=== PATIENT | female | born 1945 | race Caucasian/White ===

== ENCOUNTER → 2017-06-20 13:52 | Outpatient (CLI) | payer MEDICARE, SELFPAY ==
--- NOTE | 2017-06-20 13:55 | CT_ITS ---
STUDY: CT ABDOMEN WITH CONTRAST REASON FOR EXAM: Female, 71 years old. Follow-up: cancer, left adrenal adenoma. RADIATION DOSAGE (If Supplied By Facility): CTDIvol = ( 16.64 ) mGy, DLP = ( 663.18 ) mGycm TECHNIQUE: Transaxial images were obtained post I.V. administration of 100ML ml of Isovue 300 contrast, and with oral contrast. Sagittal and coronal images were reconstructed. Individualized dose optimization techniques were used for this CT. COMPARISON: CT abdomen and pelvis September 17, 2015. FINDINGS: Calcified granulomata seen in the posterior periphery of the right lower lobe, and there are calcified lymph nodes in the right hilum. The heart size is within normal limits. There are atherosclerotic calcifications of the coronary arteries and visualized distal descending thoracic aorta. Dense calcification also seen in the mitral valve annulus. The mildly elongated right lobe of liver measures 18.9 cm in height. There are occasional calcified granulomata in the liver, but no new focal liver mass. The patent portal vein diameter is 11.5 mm. There are surgical clips in the gallbladder fossa consistent with a prior cholecystectomy. The diameter of the common bile duct is 5 mm. There are multiple benign calcified granulomata of the spleen. Normal pancreas. There is a stable moderately circumscribed, 1.4 x 1.7 x 1.35 cm low attenuation left adrenal mass, consistent with an adrenal adenoma. Normal right adrenal gland. Normal right kidney. Normal left kidney. No hydronephrosis. Normal visualized stomach. Normal small intestine. There are a few distal left colonic diverticula consistent with diverticulosis. The appendix is visualized and appears normal. There is stable moderate atherosclerotic calcification of the abdominal aorta and visualized proximal iliac arteries, without a demonstrated aneurysm. There is 25-50% diameter atherosclerotic narrowing of the right renal artery ostium, while greater than 70% atherosclerotic stenosis suggested on the left. Normal inferior vena cava. Normal retroperitoneum. Midline ventral hernia near the umbilicus is only partially included in the [id number], but again appears to contain nondistended small bowel segments. There are stable diffuse degenerative changes of the visualized spine, an 18-19 degrees levoscoliosis centered at T12. Grade 1-2 anterolisthesis of L4 on L5 is mildly worsened. CT/Abdomen WITH IV Contrast IMPRESSION: 1. Stable left adrenal adenoma. 2. No findings suspicious for abdominal metastatic disease. 3. Prior cholecystectomy. 4. Stable ventral hernia containing nondistended small bowel. 5. Atherosclerotic calcifications of the coronary arteries, thoracoabdominal aorta and proximal iliac arteries. Coarse calcification also seen in the mitral valve annulus. 6. 25-50% diameter atherosclerotic narrowing of the right renal artery ostium; >70% atherosclerotic stenosis suggested on the left. 7. Stable findings of old calcified granulomatous disease. 8. Distal left colonic diverticulosis without acute diverticulitis. No sign of bowel obstruction. The visualized appendix is normal. 9. No hydronephrosis. 10. Multilevel degenerative changes of the spine, with levoscoliosis centered at T12. Grade 1-2 anterolisthesis of L4 on L5 is mildly worsened. Electronically Signed: Kevin Meadows MD at 20:01 EDT , Service support ,
[2017-06-20 15:36] LABS: CREATININE FINGERSTICK 0.6 mg/dL (0.55-1.02); EGFR FINGERSTICK > 60.0000 mL/min (>60)
== END ==
PROVIDERS: Family Provider Internal Medicine; PCP Internal Medicine; Visit Provider Internal Medicine
DX: D35.02 Benign neoplasm of left adrenal gland (principal)
CPT/HCPCS: 74160; Q9967

== ENCOUNTER → 2017-10-19 12:43 | Outpatient (CLI) | payer MEDICARE, SELFPAY ==
--- NOTE | 2017-10-19 12:46 | BI_ITS ---
MAMMOGRAPHY - BILATERAL SCREENING REASON FOR EXAM: Female, 71 years old. Routine annual screening examination. PERTINENT HISTORY: Sister with breast cancer. TECHNIQUE: Digital bilateral breast kane (3D mammographic acquisition) in the CC and MLO projections. 2-D mediolateral oblique (MLO) and craniocaudad (CC) views of both breasts were obtained. CAD: Full Field Digital Mammography with Computer Added Detection was performed. COMPARISON: Comparison is made with prior study dated October 04, 2016 and October 01, 2015. FINDINGS: Breast Composition: The breasts are almost entirely fatty. There are no dominant masses or suspicious calcifications. Stable appearance of the scattered secretory type calcifications in the right breast. No other significant abnormalities are identified. There has been no significant change since the prior study. BI/SCREENING MAMM (CAD), BILAT IMPRESSION: Stable bilateral screening mammogram. Yearly follow-up mammogram recommended. (A) ASSESSMENT CATEGORY: BIRADS Category 2: Benign. A letter regarding these results will be sent to the patient by the facility within 30 days. Approximately 10% of breast cancers are not detected by mammography. A normal mammogram should not delay biopsy of a clinically suspicious abnormality. [id number] Electronically Signed: Matt Cortes MD at 14:43 EDT Tel [phone], Service support ,
== END ==
PROVIDERS: Family Provider Internal Medicine; PCP Internal Medicine; Visit Provider Internal Medicine
DX: Z12.31 Encounter for screening mammogram for malignant neoplasm of breast (principal)
CPT/HCPCS: 77063; 77067

== ENCOUNTER → 2018-03-11 07:14 | Outpatient (CLI) | payer MEDICARE, SELFPAY ==
[2018-03-11 10:16] LABS: Absolute Lymphocyte Count 1.65 X10^3/ul (0.83-4.51); Absolute Neutrophil Count 6.5 X10^3/uL (2.0-7.7); Basophil# 0.07 X10^3/uL; Basophil% 0.7 % (0-1); Eosinophil# 0.47 X10^3/uL; Eosinophils% 4.8 % (0-5); Hematocrit 40.6 % (37-47); Hemoglobin 13.4 g/dl (12.0-15.0); Lymphocyte # 1.65 X10^3/ul (4.0); Mean Corpuscular Hgb 28.6 pg (27.0-32.0); Mean Corpuscular Volume 86.8 fL (81-99); Mean Platelet Vol. 9.2 fl (6.2-12.0); Monocyte# 1.06 X10^3/uL; Monocyte% 10.9 % (0-10); Neutrophil # 6.46 X10^3/uL (2.7-7.7); Neutrophil % 66.4 % (47-70); POSITIVE COUNT NO; POSITIVE DIFFERENTIAL NO; POSITIVE MORPHOLOGY NO; Platelet Count 416 K/mm3 (150-450); RBC Distribution Width CV 13.2 % (11.6-14.6); RBC Distribution Width SD 41.1 fl (35.1-43.9); Red Blood Count 4.68 M/mm3 (4.2-5.4); White Blood Count 9.7 K/mm3 (4.4-11.0)
[2018-03-11 10:38] LABS: Vitamin D,25 Hydroxy 11.8 ng/mL (29.95-100.01)
[2018-03-11 10:51] LABS: ALB/GLOB Ratio 0.7 RATIO (0.9-2.4); AST(SGOT) 16 U/L (15-37); Alanine Aminotransfer ALT/SGPT 10 U/L (13-56); Albumin, Serum 3.4 g/dL (3.2-5.0); Alkaline Phosphatase 103 U/L (45-117); Anion Gap 12 (5-15); BUN 11 mg/dL (7-18); BUN/Creat Ratio 15.9 RATIO (10-20); Calcium,Total 8.9 mg/dL (8.5-10.1); Chloride 94 mmol/L (98-107); Creatinine, Serum 0.69 mg/dL (0.55-1.02); EST Glomerular Filtration Rate 89 mL/min (>60); Est Glom Filt Rate - Afr Amer 107 mL/min (>60); Globulin 4.6 g/dL (2.2-4.2); Glucose 46 mg/dL (74-106); Potassium 3.7 mmol/L (3.5-5.1); Sodium Level 134 mmol/L (136-145); Thyroid Stim Hormone (TSH) 2.93 uIU/mL (0.358-3.74)
[2018-03-13 16:09] LABS: CHOLESTEROL TOTAL 106 mg/dL (100-199); HDL-C 50 mg/dL (>39); HDL-P TOTAL 33.9 umol/L (>=30.5); SMALL LDL-P 151 nmol/L (<=527); TRIGLYCERIDES 95 mg/dL (0-149)
[2018-03-14 07:36] LABS: LDL SIZE 20.4 nm (>20.5); LDL-C 37 mg/dL (0-99); LDL-P 342 nmol/L (<1000); LP-IR SCORE ** 35 (<=45)
== END ==
PROVIDERS: Family Provider Internal Medicine; PCP Internal Medicine; Referring Provider Internal Medicine; Visit Provider Internal Medicine
DX: E55.9 Vitamin D deficiency, unspecified (principal); E78.2 Mixed hyperlipidemia; I10 Essential (primary) hypertension; E11.9 Type 2 diabetes mellitus without complications
CPT/HCPCS: 36415; 80053; 80061; 82306; 83704; 84443; 85025

== ENCOUNTER → 2018-04-17 08:00 | Outpatient (CLI) | payer MEDICARE, SELFPAY ==
[2018-04-17 10:30] LABS: Anion Gap 10 (5-15); BUN 14 mg/dL (7-18); BUN/Creat Ratio 19.4 RATIO (10-20); Calcium,Total 8.6 mg/dL (8.5-10.1); Chloride 92 mmol/L (98-107); Creatinine, Serum 0.72 mg/dL (0.55-1.02); EST Glomerular Filtration Rate 84 mL/min (>60); Est Glom Filt Rate - Afr Amer 102 mL/min (>60); Glucose 132 mg/dL (74-106); Potassium 3.5 mmol/L (3.5-5.1); Sodium Level 128 mmol/L (136-145)
--- OUTSIDE RECORDS SUMMARY | 2018-06-21 22:51 | XMS RPT_ITS | Continuity of Care Document ---
:1945 Author Organization [facility] Address [address] [place] [address] Phone Care Team Providers Name Role Phone Kathy Noguera DO Unavailable Carlos Enrique Bingham Unavailable Dr. Florin Brannon Unavailable Dr. Kirby العلي Unavailable LUIS ALBERTO Macedo Unavailable Unavailable CORRINE Robin Unavailable Unavailable Unavailable Unavailable Problems Name Dates Details Adrenal adenoma, left (D35.02, 227.0) Comments: 09/15 scan size of adrenal nodule 1.8cm Status: Active Annual Medicare Phyiscal WITHOUT abnormal findings (Renamed from Encounter for general adult medical examination without abnormal findings) (Z00.00, V70.9) Status: Active Atherosclerosis (I70.90, 440.9) Comments: on low dose asa, repeat carotid in a year Status: Active Bilateral carotid artery stenosis (I65.23, 433.10) Comments: dopplers 2015 Status: Active BMI 34.0-34.9,adult (Z68.34, V85.34) Status: Active BMI 35.0-35.9,adult (Z68.35, V85.35) Status: Active BMI 36.0-36.9,adult (Z68.36, V85.36) Status: Active Colon cancer (C18.9, 153.9) Comments: hx of -s/p hemicolectomyColon cancer 03/2003, colosctomy bag till 2003.No chemo or radiation.Colonoscopy 05/15 Dr Simon, repeat 5 years, 05/20 Status: Active Deliveries (Parity) Comments: 3. Status: Active Depression (F32.9, 311) Comments: mild controlled Status: Active Dermatitis (L30.9, 692.9) Status: Active Diabetes mellitus type II, controlled (E11.9, 250.00) Status: Active Diabetes type II, uncontrolled, ophthalmic comp (250.52) Comments: FBS: 96-106 Status: Active Diabetic neuropathy (E11.40, 357.2) Status: Active Diabetic retinopathy of right eye (E11.319, 250.50) Comments: [facility] surgery 2014, aneurysm in rt eye rupture. next OV 08/2018 seen every 6 months or atleast yearly consistently eye exam Dr Dent in [place] (Opthalmology) next OV - 2018 sees every 6 months last seen Status: Active Encounter for annual general medical examination with abnormal findings in adult (Z00.01, V70.0) Status: Active Encounter for screening for malignant neoplasm of colon (Renamed from Special screening for malignant neoplasms, colon) (Z12.11, V76.51) Comments: last scope 2018-- 5-7yrs if that per dr brannon Status: Active Encounter for screening mammogram for breast cancer (Renamed from Encounter for screening mammogram for malignant neoplasm of breast) (Z12.31, V76.12) Status: Active Essential tremor (G25.0, 333.1) Status: Active Fatty liver (K76.0, 571.8) Status: Active Hypertension, benign (I10, 401.1) Comments: BP at home: 130/80 Status: Active Hypokalemia (Renamed from Decreased potassium in the blood) (E87.6, 276.8) Status: Active Hyponatremia with normal extracellular fluid volume (E87.1, 276.1) Comments: she monitoring her fluids bettter Status: Active Low back pain potentially associated with radiculopathy (M54.5, 724.2) Status: Active Memory impairment (R41.3, 780.93) Status: Active Mixed hyperlipidemia (E78.2, 272.2) Status: Active Need for prophylactic vaccination and inoculation against influenza (Renamed from Need for immunization against influenza) (Z23, V04.81) Status: Active Neurodermatitis (L28.0, 698.3) Status: Active Noncompliance with medications (Z91.14, V15.81) Status: Active Non-smoker (Z78.9, V49.89) Status: Active Nutritional counseling (Z71.3, V65.3) Status: Active Obesity (BMI 30-39.9) (E66.9, 278.00) Status: Active Other abnormal finding of urine (R82.99, 791.9) Status: Active Parkinson disease, symptomatic (G20, 332.0) Status: Active Personal history of stroke with residual effects (I69.30, 438.9) Comments: TIA in 90s, couldnt talk for 1 dayNo residual numbness/weakness Status: Active Postmenopausal (Renamed from Postmenopausal status) (Z78.0, V49.81) Comments: dexa 2017 Status: Active Pregnancies () Comments: 3. 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 constipation Status: Active Vitreous hemorrhage (H43.10, 379.23) Status: Active Medications Name Dates Details AmLODIPine Besylate 5 MG Oral Tablet 1 (one) Tablet bid for 90 days Quantity: 180 {Tablet} Refills: 3 Ordered:15-Mar-2018 Jeb Noguera DO, DO, Kathleen Start : 15-Mar-2018 Active ASPIRIN LOW DOSE, 81MG (Oral Tablet) 1 tab qd (81 MG) Active Crestor 5 MG Oral Tablet 1 Tablet qd for 30 days Quantity: 30 {Tablet} Refills: 3 Ordered:15-Mar-2018 Jeb Noguera DO, DO, Kathleen Start : 15-Mar-2018 Active Comments:substitute generic Januvia 50 MG Oral Tablet 1 (one) Tablet Tablet qd for 0 days Quantity: 30 {Tablet} Refills: 2 Ordered:04-Apr-2017 Hellen Rubina SAHU Start : 04-Apr-2017 Active Lantus SoloStar 100 UNIT/ML Subcutaneous Solution Pen-injector 34 Solution hs for 90 days Quantity: 5 {Pre-filled_Pen_Syringe} Refills: 3 Ordered:15-Mar-2018 Jeb Noguera DO, DO, Kathleen Start : 15-Mar-2018 Active Comments:PENS, PENS Lisinopril 20 MG Oral Tablet 1 (one) Tablet bid for 90 days Quantity: 90 {Tablet} Refills: 3 Ordered:15-Mar-2018 Jeb Noguera DO, DO, Kathleen Start : 15-Mar-2018 Active MetFORMIN HCl ER 500 MG Oral Tablet Extended Release 24 Hour 1 tab Tablet ER 24HR bid for 90 days Quantity: 180 {Tablet} Refills: 3 Ordered:23-Nov-2017 Jeb Noguera DO, DO, Kathleen Start : 23-Nov-2017 Active Metoprolol Succinate ER 25 MG Oral Tablet Extended Release 24 Hour 1 (one) Tablet qd for 0 days Quantity: 90 {Tablet} Refills: 3 Ordered:15-Mar-2018 Jeb Noguera DO, DO, Kathleen Start : 15-Mar-2018 Active PARoxetine HCl 30 MG Oral Tablet 1 (one) Tablet q evening for 90 days Quantity: 90 {Tablet} Refills: 3 Ordered:23-Nov-2017 Jeb Noguera DO, DO, Kathleen Start : 23-Nov-2017 Active Dispense as Written Sinemet 25-100 MG Oral Tablet 2 tabs Tablet tid for 90 days Quantity: 360 {Tablet} Refills: 1 Ordered:15-Mar-2018 Jeb Noguera DO, DO, Kathleen Start : 15-Mar-2018 Active VITAMIN C, 500MG (Oral Tablet) 1 tab qd (500 MG) Active Amoxicillin 875 MG Oral Tablet 1 (one) Tablet Tablet bid for 0 days Quantity: 20 {Tablet} Refills: 0 Ordered:28-Aug-2017 Rubina Macedo LPN Start : 04-Apr-2017 End : 28-Aug-2017 Inactive Cefdinir 300 MG Oral Capsule 1 (one) Capsule bid for 5 days Quantity: 10 {Capsule} Refills: 0 Ordered:31-Aug-2017 Jeb Noguera DO, DO, Kathleen Start : 31-Aug-2017 End : 05-Sep-2017 Inactive GLYBURIDE, 5MG (Oral Tablet) 2 tabs Tablet bid for 90 days Quantity: 360 {Tablet} Refills: 0 Ordered:22-Sep-2015 Dana Roldan Start : 08-Sep-2015 End : 07-Dec-2015 Inactive LORazepam 0.5 MG Oral Tablet 1 (one) Tablet Tablet bid prn for 0 days Quantity: 60 {Tablet} Refills: 0 Ordered:07-Dec-2015 Mere Sommers LPN Start : 12-Aug-2014 End : 07-Dec-2015 Inactive AMLODIPINE BESYLATE, 10MG (Oral Tablet) 1 Tablet qd for 0 days Quantity: 90 {Tablet} Refills: 3 Ordered:17-Dec-2013 Emmanuelle Quiñonez DO Start : 17-Dec-2013 End : 17-Dec-2013 Discontinued Atenolol 25 MG Oral Tablet 1 (one) Tablet bid for 90 days Quantity: 180 {Tablet} Refills: 3 Ordered:11-Dec-2016 Jeb Noguera DO, DO, Kathleen Start : 11-Dec-2016 End : 11-Dec-2016 Discontinued Comments:?? national shortage ONGLYZA, 5MG (Oral Tablet) 1 Tablet qd for 0 days Quantity: 30 {Tablet} Refills: 3 Ordered:18-Mar-2012 Emmanuelle Quiñonez DO Start : 18-Mar-2012 End : 18-Mar-2012 Discontinued PRAVASTATIN SODIUM, 40MG (Oral Tablet) 1 tab Tablet q hs for 0 days Quantity: 90 {Tablet} Refills: 3 Ordered:17-Dec-2013 Emmanuelle Quiñonez DO Start : 17-Dec-2013 End : 17-Dec-2013 Discontinued PREDNISONE, 10MG (Oral Tablet) 3 (three) Tablet pills for 3 days 2 pills for 3 days 1 for 3 days for 0 days Quantity: 18 {Tablet} Refills: 0 Ordered:24-Feb-2015 Kirsten Cardona Start : 18-Nov-2014 End : 24-Feb-2015 Discontinued Comments:[facility] [place] TRADJENTA, 5MG (Oral Tablet) 1 (one) Tablet qd for 0 days Quantity: 35 {Tablet} Refills: 0 Ordered:08-May-2012 Emmanuelle Quiñonez DO Start : 08-May-2012 End : 08-May-2012 Discontinued ZITHROMAX Z-GUEVARA, 250MG (Oral Tablet) 2 (two) Tablet Tablet today then 1 qd for 4 days for 0 days Quantity: 1 {guevara} Refills: 0 Ordered:24-Feb-2015 Kirsten Cardona Start : 04-Mar-2013 End : 24-Feb-2015 Discontinued Allergies and Adverse Reactions Name Dates Details Codeine/Codeine Derivatives (Allergy) Reaction: Hives Status: Active Past Medical History Name Dates Details Abdominal pain, acute, left upper quadrant (R10.12, 789.02) Status: Resolved as of 10-Jun-2012 Abdominal pain, diffuse (R10.84, 789.00) Comments: resolved from last visit Status: Inactive as of 14-Mar-2016 Abnormal urine (R82.90, 791.9) Comments: will treat as uti until see cx Status: Inactive as of 09-Jul-2017 Abnormal urine (R82.90, 791.9) Status: Resolved as of 04-Dec-2012 Back pain (M54.9, 724.5) Status: Inactive as of 09-Jul-2017 BMI 37.0-37.9, adult (Z68.37, V85.37) Status: Inactive as of 11-Dec-2016 Cellulitis, face (L03.211, 682.0) Status: Inactive as of 12-Oct-2017 Cystitis, acute (N30.00, 595.0) Status: Resolved as of 10-Jun-2012 Diabetic nephropathy (E11.21, 250.40) Status: Inactive as of 09-Jul-2017 Diabetic proliferative retinopathy (362.02) Status: Inactive as of 14-Mar-2016 Knee Pain (M25.569, 719.46) Status: Inactive as of 12-Oct-2017 Limb pain (M79.609, 729.5) Status: Resolved as of 04-Dec-2012 Need for prophylactic vaccination and inoculation against influenza (Z23, V04.81) Status: Inactive as of 17-Dec-2013 screening Status: Inactive as of 04-Dec-2012 screening Status: Inactive as of 17-Dec-2013 Skin lesion of face (L98.9, 709.9) Comments: R cheek Status: Inactive as of 12-Oct-2017 Syncope (Renamed from Episode of syncope) (R55, 780.2) Status: Inactive as of 14-Mar-2016 Upper Respiratory Infection (J06.9, 465.9) Status: Inactive as of 17-Dec-2013 Vaccine for smnqpqkxnx-pwovnhp-nekyaswqk with poliomyelitis (Z23, V06.3) Status: Inactive as of 04-Dec-2012 Procedures Procedure Dates Details Cataract Removal, Insert Prosthetic Lens Completed Comments: both eyes- 2011 Colon Cancer Completed Comments: 1 foot of colon removed-2002 colonscopy- 12/11- DR Mendoza Completed Diabetic Retinopathy Completed Comments: 2011 Gallbladder Surgery - Laparoscopic Completed Comments: 1994 Date Value Details 19-Oct-2017 SCREENING MAMM (CAD), BILAT Result: Comments: See Note; NOTES: [facility] Imaging Services [address] [place] [address] SCREENING MAMM (CAD), BILAT MR#: [id number] Acct: [id number] Name: EUGENE OWENS Rep #: [id number] : 1945 F 71 From: Matt Cortes MD PCP: Kathy Noguera DO Status: REG CLI Study: SCREENING MAMM (CAD), BILAT Date of Exam: 10/19/17 Exam# [id number] Ordering Dr: Kathy Noguera DO MAMMOGRAPHY - BILATERAL SCREENING REASON FOR EXAM: Female, 71 years old. Routine annual screening examination. PERTINENT HISTORY: Sister with breast cancer. TECHNIQUE: Digital bilateral breast derrell o (3D mammographic acquisition) in the CC and MLO projections. 2-D mediolateral oblique (MLO) and craniocaudad (CC) views of both breasts were obtained. CAD: Full Field Digital Mammography with Computer Added Detection was performed. COMPARISON: Comparison is made with prior study dated October 04, 2016 and October 01, 2015. FINDINGS: Breast Composition: The breasts are a lmost entirely fatty. There are no dominant masses or suspicious calcifications. Stable appearance of the scattered secretory type calcifications in the right breast. No other significant abnormalitie s are identified. There has been no significant change since the prior study. BI/SCREENING MAMM (CAD), BILAT IMPRESSION: Stable bilateral screeni ng mammogram. Yearly follow-up mammogram recommended. (A) ASSESSMENT CATEGORY: BIRADS Category 2: Benign. [facility] the facility within 30 days. Approximately 10% of breast cancers are not detected by mammography. A normal mammogram should not delay biopsy of a clinically suspicious abnormality. [id number] Elect ronically Signed: Matt Cortes MD at 14:43 EDT Tel [phone], Service support , CC: Kathy Noguera DO General Office Clerk: Signed 20-Jun-2017 Abdomen WITH IV Contrast Result: Comments: See Note; NOTES: [facility] Imaging Services [address] [place] [id number] Abdomen WITH IV Contrast MR#: [id number] Acct: [id number] Name: EUGENE OWENS Rep #: [id number] : 1945 F 71 From: Levar Meadows MD PCP: Kathy Noguera DO Status: REG CLI Study: Abdomen WITH IV Contrast Date of Exam: 06/20/17 Exam# [id number] Ordering Dr: Kathy Noguera DO STUDY: C T ABDOMEN WITH CONTRAST REASON FOR EXAM: Female, 71 years old. Follow-up: cancer, left adrenal adenoma. RADIATION DOSAGE (If Supplied By Facility): CTDIvol = ( 16.64 ) mGy, DLP = ( 663.18 ) mGycm NICOLE HNIQUE: Transaxial images were obtained post I.V. administration of 100ML ml of Isovue 300 contrast, and with oral contrast. Sagittal and coronal images were reconstructed. Individualized dose optimiza tion techniques were used for this CT. COMPARISON: CT abdomen and pelvis September 17, 2015. FINDINGS: Calcified granulomata seen in the posterior periphery of the right lower lobe, and there are calcified lymph nodes in the right hilum. The heart size is within normal limits. There are atherosclerotic calcifications of the coronary arteries and visualized distal desce nding thoracic aorta. Dense calcification also seen in the mitral valve annulus. The mildly elongated right lobe of liver measures 18.9 cm in height. There are occasional calcified granulomata in the l iver, but no new focal liver mass. The patent portal vein diameter is 11.5 mm. There are surgical clips in the gallbladder fossa consistent with a prior cholecystectomy. The diameter of the common bile duct is 5 mm. There are multiple benign calcified granulomata of the spleen. Normal pancreas. There is a stable moderately circumscribed, 1.4 x 1.7 x 1.35 cm low attenuation left adrenal mass, consiste nt with an adrenal adenoma. Normal right adrenal gland. Normal right kidney. Normal left kidney. No hydronephrosis. Normal visualized stomach. Normal small intestine. There are a few distal left colon ic diverticula consistent with diverticulosis. The appendix is visualized and appears normal. There is stable moderate atherosclerotic calcification of the abdominal aorta and visualized proximal iliac arteries, without a demonstrated aneurysm. There is 25-50% diameter atherosclerotic narrowing of the right renal artery ostium, while greater than 70% atherosclerotic stenosis suggested on the left. No rmal inferior vena cava. Normal retroperitoneum. Midline ventral hernia near the umbilicus is only partially included in the mmfws-bg-vqsx, but again appears to contain nondistended small bowel segment s. There are stable diffuse degenerative changes of the visualized spine, an 18- 19 degrees levoscoliosis centered at T12. Grade 1-2 anterolisthesis of L4 on L5 is mildly worsened. CT/Abdomen WITH IV Contrast IMPRESSION: 1. Stable left adrenal adenoma. 2. No findings suspicious for abdominal metastatic disease. 3. Prior cholecystectomy. 4. Stable ventral hernia containing nondistended small bowel. 5. Atherosclerotic calcifications of the coronary arteries, thoracoabdominal aorta and proximal iliac arteries. Coarse calcification also seen in the mitral valve annulus. 6. 25-50% diameter atherosclerotic narrowing of the right renal artery ostium; >70% atherosclerotic stenosis suggested on the left. 7. Stable findings of old calcified gra nulomatous disease. 8. Distal left colonic diverticulosis without acute diverticulitis. No sign of bowel obstruction. The visualized appendix is normal. 9. No hydronephrosis. 10. Multilevel degenerative changes of the spine, with levoscoliosis centered at T12. Grade 1-2 anterolisthesis of L4 on L5 is mildly worsened. Electronically Signed: Kevin Meadows MD at 20:01 EDT Tel , Service support , CC: Kathy Noguera DO General Office Clerk: Signed 04-Oct-2016 SCREENING MAMM (CAD), BILAT Result: Comments: See Note; NOTES: [facility] Imaging Services [address] [place] [id number] [address] 4d SCREENING MAMM (CAD), BILAT MR#: [id number] Acct: [id number] Name: EUGENE OWENS Rep #: [id number] : 1945 F 70 From: Levar Cavanaugh MD PCP: Kathy Noguera DO Status: [facility] CL Study: SCREENING MAMM (CAD), BILAT Date of Exam: 10/04/16 Exam# [id number] Ordering Dr: Americo Noguera DO MAMMOGRAPHY - BILATERAL SCREENING REASON FOR EXAM: Female, 70 years old. Routine annual screening examination. PERTINENT HISTORY: Non-contributory. TECHNIQUE: Digital examination. Mediolateral oblique (MLO) and craniocaudad (CC) views of both breasts were obtained, along with 3D tomosynthesis. CAD: CAD was performed on this study. COMPARISON: 10/01/2015 FI NDINGS: Breast Density: Scattered fibroglandular densities. There are no dominant masses or suspicious calcifications. Stable scattered secretory type calcifications in the right breast. Stable scatter ed punctate calcifications in the left breast. No other significant abnormalities are identified. There has been no significant change since the prior study. HPBI/SCREENING MAMM (CAD), BILAT IMPRESSION: Stable bilateral screening mammogram. Yearly follow-up mammogram recommended. (A) ASSESSMENT CATEGORY: BI RADS Category 2: Benign. A letter regarding these results will be sent to the patient by the facility within 30 days. BR2 Approximately 10% of breast cancers are not detected by mammography. A normal mammogram should not delay biopsy of a clinically suspicious abnormality. [id number] Electronically Signed: Kevin Cavanaugh MD at 15:21 EDT , Service support , Fa x [phone] CC: Kathy Noguera DO General Office Clerk: Signed 13-Jul-2016 DXA BONE DENS W/VERT FX ASMT Result: Comments: See Note; NOTES: [facility] Imaging Services [address] [place] [address] Verdana 4d DXA BONE DENS W/VERT FX ASMT MR#: [id number] Acct: [id number] Name: EUGENE OWENS Rep #: [id number] : 1945 F 70 From: Matt Cortes MD PCP: Kathy Noguera DO Status: REG CLI Study: DXA BONE DENS W/VERT FX ASMT Date of Exam: 07/13/16 Exam# [id number] Ordering Dr: Kathy Noguera DO STUDY: DUAL ENERGY X-RAY ABSORPTIOMETRY / DXA REASON FOR EXAM: Female, 70 years old. The patient is postmenopausal. Loss of height. TECHNIQUE: Bone Mineral Density (BMD) measurements o f lumbar spine and bilateral hips were obtained. COMPARISON: None. FINDINGS: Lumbar Spine (L1-L4): g/cm2 (1.256) / T-score (0.5) / Z-score (2.2) Findings are sugge stive of normal bone density with a low fracture risk. Left Femur Total: g/cm2 (1.001) / T-score (-0.1) / Z-score (1.5) Left Femoral Neck: g/cm2 (0.916) / T- score (-0.9) / Z-score (0.9) Right Femur Tot al: g/cm2 (0.946) / T-score (-0.5) / Z-score (1.0) Right Femoral Neck: g/cm2 (0.896) / T-score (-1.0) / Z-score (0.7) HPBD/DXA BONE DENS W/VERT F X ASMT IMPRESSION: The patient is considered normal as outlined below according to World Kareem Organization (WHO) criteria with a low fracture risk. Reference Infor mation: The T-score is the number of standard deviations above or below the standard which is normal for young adults at their peak bone mineral density. The World Health Organization (WHO) interprets t he T-scores as follows: Above -1 Normal bone density Between -1 and -2.5 Osteopenia Equal to / or below -2.5 Osteoporosis As a practical clinical guideline, osteopenia may be graded as follows: Mild - 1 through -1.5 Moderate -1.6 through -2.0 Severe -2.1 through -2.4 The Z-score is the number of standard deviations above or below age-matched controls. A Z- score of less than -1.5 would be considered abnormal. References: 1. NIH Osteoporosis and Related Bone Diseases http://www.osteo.org 2. International Society for Clinical Densitometry http://www.iscd.org 3. National Osteoporosis Foundation http: //www.nof.org Electronically Signed: Matt Cortes MD at 13:30 EDT Tel [phone], Service support , CC: Kathy Noguera DO General Office Clerk: Signed 01-Oct-2015 Bilat Scrn Digital AND CAD Result: Comments: See Note; NOTES: [facility] Imaging Services [address] [place] [address] Verdana 4d Bilat Scrn Digital AND CAD MR#: [id number] Acct: [id number] Name: EUGENE OWENS Rep #: [id number] : 1945 F 69 From: Narciso Eisenberg MD PCP: Emmanuelle Quiñonez DO Status: REG CLI Study: Bilat Scrn Digital AND CAD Date of Exam: 10/01/15 Exam# [id number] Ordering Dr: Emmanuelle Roper DO MAMMOGRAPHY - BILATERAL SCREENING REASON FOR EXAM: Female, 69 years old. Routine annual screening examination. PERTINENT HISTORY: NO FAM HX - NO PREV SURG'S - BILAT MOLES MARKED T ECHNIQUE: TECHNIQUE: Digital bilateral breast tomosynthesis (3-D mammographic acquisition) in the CC and MLO projections. Synthesized 2-D images (C-View reconstruction from tomosynthesis acquisition) providing bilateral breast CC and MLO views. Mediolateral oblique (MLO) and craniocaudad (CC) views of both breasts were obtained. CAD: Full Field Digital Mammography with Computer Added Detection wa s performed. COMPARISON: None. FINDINGS: Breast Density: B - Scattered fibroglandular densities. There are no dominant masses or suspicious calcifications. No other significant abnormalities are identified. IMPRESSION: Stable bilateral screening mammogram. Yearly follow-up mammogram recommended. (A) ASSESSMENT CATEGORY: BIRADS Category 2: Benign. A letter regarding these results will be sent to the patient by the facility within 30 days. Approximately 10% of breast cance rs are not detected by mammography. A normal mammogram should not delay biopsy of a clinically suspicious abnormality. [id number] Electronically Signed: Narciso Eisenberg MD at 17:54 EDT Te l , Service support [phone], CC: Emmanuelle Quiñonez DO General Office Clerk: Signed 19-Sep-2015 Carotid Duplex Ultrasound Result: Comments: See Note; NOTES: [facility] Cardiovascular Services [address] [place] [address] Carotid Duplex Ultrasound 09/17/15 0801 MR#: [id number] Acct: [id number] Name: EUGENE OWENS Rep #: [id number] : 1945 69 From: Adria Kim MD Attending Dr: Emmanuelle Quiñonez DO Status: REG CLI Ordering Dr: Emmanuelle Quiñonez DO Date: 09/17/15 Location: CT Sex: F C Admitt ed: Reason For Study: Carotid Stenosis Rt. Velocities/BP Lt. Velocities/BP Prox CCA 73/12 cm/sec. Prox CCA 90/14 cm/sec. Mid CCA 56/10 cm/sec. Mid CCA 84/12 cm/sec. Dist CCA 60/11 cm/sec. Di st CCA 66/9 cm/sec. Prox ICA 67/14 cm/sec. Prox ICA 60/14 cm/sec. Mid ICA 64/17 cm/sec. Mid ICA 72/16 cm/sec. Dist ICA 84/21 cm/sec. Dist ICA 92/22 cm/sec. Rt. ICA/CCA = 1.5. Lt. ICA/CCA = 1.09. Pr ox ECA 98/9 cm/sec. Prox ECA 80/8 cm/sec. Rt. Vert. 51/11 cm/sec. Lt. Vert. 44/9 cm/sec. Right Extracranial There is no significant atherosclerotic plaque noted in the right common carotid artery. T here is no significant atherosclerotic plaque noted in the right internal carotid artery. There is heterogeneous, irregular atherosclerotic plaque noted in the right external carotid artery. Antegrad e flow is noted in the right vertebral artery. There is heterogeneous, irregular atherosclerotic plaque noted in the right bulb. Left Extracranial There is no significant atherosclerotic plaque note d in the left common carotid artery. There is no significant atherosclerotic plaque noted in the left internal carotid artery. There is no significant atherosclerotic plaque noted in the left externa l carotid artery. Antegrade flow is noted in the left vertebral artery. There is heterogeneous, smooth atherosclerotic plaque noted in the left bulb. Procedure Carotid Duplex 12366. Exam performe d in department. Interpretation Summary Mild (<50%) stenosis right extracranial internal carotid. Mild (<50%) stenosis left extracranial internal carotid. Flow within the vertebral arteries is antegrade bilaterally. Ordering Physician: Emmanuelle Quiñonez Referring Physician: Emmanuelle Quiñonez Performed By: Lina Dumont, CARISSA, RVT 09/19/152156 Date Adria Kim MD CC: Emmanuelle Quiñonez DO Date Dictated: 09/17/15 0801 Date Transcribed: 09/19/152156 General Office Clerk: Signed 17-Sep-2015 Abdomen/Pelvis WITH Contrast Result: Comments: See Note; NOTES: [facility] Imaging Services [address] [place] [address] Verdana 4d Abdomen/Pelvis WITH Contrast MR#: [id number] Acct: [id number] Name : ROMANEUGENE F Rep #: [id number] : 1945 F 69 From: Matt Cortes MD PCP: Emmanuelle Quiñonez DO Status: REG CLI Study: Abdomen/Pelvis WITH Contrast Date of Exam: 09/17/15 Exam# [id number] Genevieve vasquez Dr: Emmanuelle Quiñonez DO STUDY: CT ABDOMEN AND PELVIS WITH CONTRAST REASON FOR EXAM: Female, 69 years old. Epigastric pain. History of colon cancer. RADIATION DOSAGE (If Supplied By Facility): CTDI vol = ( 15.85 ) mGy, DLP = ( 1016.23 ) mGycm TECHNIQUE: Transaxial images were obtained from the dome of the diaphragm to the symphysis pubis with oral contrast. 100ML ml of Isovue 300 contrast was administered. Sagittal and coronal images were reconstructed. Individualized dose optimization techniques were used for this CT. COMPARISON: Comparison is made with prior study dated May 08. FINDINGS: Minimal increased linear markings at the lung bases suggestive of mild linear scarring. This is unchanged. Calcified right infrahilar lymph nodes. Coronary artery calcification. Normal liver. There are surgical clips in the gallbladder fossa consistent with a prior cholecystectomy. There are multiple benign calcified granulomata of the spleen . Normal pancreas. There is a small, circumscribed, smooth, low attenuation left adrenal mass, consistent with an adrenal adenoma. It measures 1.8 cm. This is unchanged. Normal right adrenal gland. Normal right kidney. Normal left kidney. Normal visualized stomach. Normal small intestine. Normal colon. The appendix is visualized and appears normal. There is diffuse atherosclerotic calcifica tion of the abdominal aorta, without a demonstrated aneurysm. Normal inferior vena cava. Normal retroperitoneum. Small benign appearing pelvic lymph nodes. Normal urinary bladder. With evidence of a midline umbilical hernia containing fat and nondilated small bowel loop. The neck of the hernia measures 6.6 cm. There are diffuse degenerative changes of the visualized lumbar spine. Minimal ante rior listhesis of L4 on L5. Minimal we will scoliosis. IMPRESSION: Fatty infiltration of the liver. 1.8 cm well-defined low attenuation nodule in the left adrena l gland most likely representing an adrenal adenoma. Umbilical hernia containing fat and a nondilated small bowel loop. Electronically Signed: Matt Cortes MD at 8:43 EDT Tel [phone], Service support [phone], CC: Emmanuelle Quiñonez DO General Office Clerk: Signed 20-Aug-2015 Brain W/WO Contrast Result: Comments: See Note; NOTES: [facility] Imaging Services [address] [place] [address] Verdana 4d Brain W/WO Contrast MR#: [id number] Acct: [id number] Name: SA LAURO OWENS F Rep #: [id number] : 1945 F 69 From: Narciso Eisenberg MD PCP: Emmanuelle Quiñonez DO Status: REG CLI Study: Brain W/WO Contrast Date of Exam: 08/20/15 Exam# [id number] Ordering Dr: Ashu Bhatti MD STUDY: MRI BRAIN WITH AND WITHOUT CONTRAST REASON FOR EXAM: Female, 69 years old. Follow up to prior MRI, H/A's Meds with the and at the the lower pole of the reason for the lesions in the ri ght and the and in the liver and a with measures one point the balloon of the middle of the. There is a reason for visit is and 626 the neural a catheter in the the liver and C1 are seen in the the kn ee and in with only a homogeneous and is minimally is seen with chest reason for is is present ultrasound of the 5.5x5.8x5.2 cm 8.5 there is a this is no flow images were obtained 5.3x5 is 5x55 this is a. Soft tissue and TECHNIQUE: Standardized multiplanar fat and water weighted pulse sequences were obtained. 10 ml of Gadavist contrast material was administered intravenously for the contrast po rtion of the examination. COMPARISON: None. FINDINGS: Dysgenetic corpus callosum, with only partially formed callosal body, with corresponding findings, includ ing parallel and widely space lateral ventricles, colpocephaly and mild superior extension of the third ventricle. Normal extra-axial CSF spaces for the patient's age. No localized extra-axial fluid collection. There are multiple punctate and patchy confluent foci of FLAIR and T2 signal hyperintensity in the bihemispheric white matter, compatible with moderate chronic microvascular ischemic dis ease in an individual of this age. Tiny dilated perivascular spaces in the bilateral basal ganglia with suspected small remote right thalamic infarct. There is no evidence for recent intracranial isc hemia or other cause of cytotoxic edema on diffusion weighted imaging (DWI). Normal flow voids within the major intracranial circulation suggesting patency by spin echo criteria. Normal venous enhan cement. Focal region of mild contrast enhancement in a somewhat curvilinear configuration involving the right frontal lobe, with evidence of mild adjacent encephalomalacia and gliosis, suggesting pro bable subacute insult, potentially post-traumatic versus vascular in etiology. Alternatively, this could be associated with a small developmental venous anomaly, given somewhat tubular configuration . The sella appears mildly expanded and partially empty, with otherwise normal appearance of the visualized pituitary infundibulum, optic chiasm and hypothalamic region, within the constraints of a r outine brain study. Normal tectal plate and pineal gland. Normal midbrain, allen and medulla. Normal cerebellum. Normal basal cisterns. Small amount of fluid signal in the right mastoid tip, most co mpatible with chronic mastoiditis. Normal visualized bilateral internal auditory canal structures, given routine brain imaging. Bilateral ocular lens implants, with no additional demonstrated orbital abnormality, within the constraints of a routine brain study. Normal appearance of the calvarium and visualized osseous skull base structures. Mild degenerative changes involving the visualized uppe r cervical spine. 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 Chronic microvascular ischemic changes involving the bihemispheric whi te matter, with no visualized acute infarct. 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 Electronically Signed: Narciso Eisenberg MD at 15:23 EDT Tel , Service support [phone], CC: Emmanuelle Bhatti MD General Office Clerk: Signed 20-Aug-2015 Brain W/WO Contrast Result: Comments: See Note; NOTES: [facility] Imaging Services [address] [place] [address] Vanessa 4d Brain W/WO Contrast MR#: [id number] Acct: [id number] Name: SA RA Nohemi OWENS Rep #: [id number] : 1945 F 69 From: Narciso Eisenberg MD PCP: Emmanuelle Quiñonez DO Status: REG CLI Study: Brain W/WO Contrast Date of Exam: 08/20/15 Exam# [id number] Ordering Dr: Ashu Bhatti MD ADDENDUM by Narciso Eisenberg MD on 09/05/15 at 0120 ADDENDUM REASON FOR EXAM: Female, 69 y ears old. Cephalgia Electronically Signed: Narciso Eisenberg MD at 1:20 EDT Tel , Service support [phone], 09/05/15 0120 Date c c: Emmanuelle Quiñonez DO; Ashu Bhatti MD * Signed STUDY: MRI BRAIN WITH AND WITHOUT CONTRAST REASON FOR EXAM: Female, 69 years old. Follow up to prior MRI, H/A's Meds with the and at the the lower po le of the reason for the lesions in the right and the and in the liver and a with measures one point the balloon of the middle of the. There is a reason for visit is and 626 the neural a catheter in the the liver and C1 are seen in the the knee and in with only a homogeneous and is minimally is seen with chest reason for is is present ultrasound of the 5.5x5.8x5.2 cm 8.5 there is a this is no tom w images were obtained 5.3x5 is 5x55 this is a. Soft tissue and TECHNIQUE: Standardized multiplanar fat and water weighted pulse sequences were obtained. 10 ml of Gadavist contrast material was adm inistered intravenously for the contrast portion of the examination. COMPARISON: None. FINDINGS: Dysgenetic corpus callosum, with only partially formed callosal body, with corresponding findings, including parallel and widely space lateral ventricles, colpocephaly and mild superior extension of the third ventricle. Normal extra-axial CSF spaces for the homar ent's age. No localized extra-axial fluid collection. There are multiple punctate and patchy confluent foci of FLAIR and T2 signal hyperintensity in the bihemispheric white matter, compatible with moderate chronic microvascular ischemic disease in an individual of this age. Tiny dilated perivascular spaces in the bilateral basal ganglia with suspected small remote right thalamic infarct. There is no evidence for recent intracranial ischemia or other cause of cytotoxic edema on diffusion weighted imaging (DWI). Normal flow voids within the major intracranial circulation suggesting patency by spin echo criteria. Normal venous enhancement. Focal region of mild contrast enhancement in a somewhat curvilinear configuration involving the right frontal lobe, with evidence of mild adjacent en cephalomalacia and gliosis, suggesting probable subacute insult, potentially post-traumatic versus vascular in etiology. Alternatively, this could be associated with a small developmental venous anom kayla, given somewhat tubular configuration . The sella appears mildly expanded and partially empty, with otherwise normal appearance of the visualized pituitary infundibulum, optic chiasm and hypotha lamic region, within the constraints of a routine brain study. Normal tectal plate and pineal gland. Normal midbrain, allen and medulla. Normal cerebellum. Normal basal cisterns. Small amount of flui d signal in the right mastoid tip, most compatible with chronic mastoiditis. Normal visualized bilateral internal auditory canal structures, given routine brain imaging. Bilateral ocular lens implan ts, with no additional demonstrated orbital abnormality, within the constraints of a routine brain study. Normal appearance of the calvarium and visualized osseous skull base structures. Mild degener ative changes involving the visualized upper cervical spine. 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 Chronic microvascular ische sharon changes involving the bihemispheric white matter, with no visualized acute infarct. Stable curvilinear contrast enhancement in the right frontal lobe, which is most consistent with small develop mental venous vascular anomaly leptomeningeal angiomatosis. Electronically Signed: Narciso Eisenberg MD at 15:23 EDT Tel , Service support [phone], CC: Emmanuelle Quiñonez DO; Ashu Bhatti MD General Office Clerk: Signed 28-Sep-2014 Carotid Duplex Ultrasound Result: Comments: See Note; NOTES: [facility] Cardiovascular Services [address] [place] [address] Carotid Duplex Ultrasound 09/28/14 1657 MR#: [id number] Acct: [id number] Na me: OWENSEUGENE F Rep #: [id number] : 1945 68 From: Adria Kim MD Attending Dr: Emmanuelle Quiñonez DO Status: REG CLI Ordering Dr: Emmanuelle Quiñonez DO Date: 09/28/14 Location: Sex: F C Admitted: Rt. Velocities/BP Lt. Velocities/BP Prox CCA 76.8/16.4 cm/sec. Prox CCA 83.7/8.5 cm/sec. Mid CCA 79.7/19.3 cm/sec. Mid CCA 99/18.1 cm/sec. Dist CCA 66.3/9.3 cm/sec. Dist CCA 84.9/22 cm/sec. Prox ICA 80.9/18.8 cm/sec. Prox ICA 76.8/18.8 cm/sec. Mid ICA 85.6/22.3 cm/sec. Mid ICA 89.7/18.2 cm/sec. Dist ICA 100/27 cm/sec. Dist ICA 90.3/21.1 cm/sec. Rt. ICA/CCA = 1.3. Lt. ICA/CCA = 0.9. Prox ECA 88/16 cm/sec. Prox ECA 87.4/16.4 cm/sec. Rt. Vert. 52.2/14.1 cm/sec. Lt. Vert. 54.5/17 cm/sec. Right Extracranial There is intimal thickening but no significant atherosclerotic plaque noted in the right common carotid artery. There is intimal thickening but no significant atherosclerotic plaque noted in the right internal carotid artery. There is intimal thickening but no significant atheroscl erotic plaque noted in the right external carotid artery. Antegrade flow is noted in the right vertebral artery. There is heterogeneous, irregular atherosclerotic plaque noted in the right bulb. L eft Extracranial There is intimal thickening but no significant atherosclerotic plaque noted in the left common carotid artery. There is intimal thickening but no significant atherosclerotic plaque no wilfredo in the left internal carotid artery. There is heterogeneous, irregular atherosclerotic plaque noted in the left external carotid artery. Antegrade flow is noted in the left vertebral artery. Pr ocedure Carotid Duplex 96650. The exam was diagnostic. Exam performed in department. Interpretation Summary Mild (<50%) stenosis right extracranial internal carotid. Mild (<50%) sten osis left extracranial internal carotid. Flow within the vertebral arteries is antegrade bilaterally. _ Ordering Physician: Emmanuelle Quiñonez Performed By: COLETTE Valero 09/28/142025 Date Adria Kim MD CC: Emmanuelle Quiñonez DO Date Dictated: 09/28/14 1657 Date Transcribed: 09/28/142025 General Office Clerk: Signed 28-Sep-2014 Koko Contehn Digital AND CAD Result: Comments: See Note; NOTES: [facility] Imaging Services [address] [place] [address] Breast Imaging Report MR#: [id number] Acct: [id number] Name: EUGENE OWENS Rep #: [id number] : 1945 F 68 From: Matt Cortes MD PCP: Emmanuelle Quiñonez DO Status: REG CLI Study: Bilat Scrn Digital AND CAD Date of Exam: 09/28/14 Exam# [id number] Ordering Dr: Emmanuelle Quiñonez DO M AMMOGRAPHY - BILATERAL SCREENING REASON FOR EXAM: Female, 68 years old. Routine annual screening examination. PERTINENT HISTORY: Non-contributory. TECHNIQUE: Digital examination. Mediolateral obl ique (MLO) and craniocaudad (CC) views of both breasts were obtained. CAD: CAD was performed on this study. COMPARISON: Comparison is made with prior study dated September 24, 2013 and September 17, 2012. _ FINDINGS: Breast Composition: There are scattered areas of fibroglandular density. There are no dominant masses or suspicious calcifications. No other significa nt abnormalities are identified. There has been no significant change since the prior study. IMPRESSION: Stable bilateral screening mammogram. Yearly follow-up r ecommended. (A) ASSESSMENT CATEGORY: BIRADS Category 1: Negative. A letter regarding these results will be sent to the patient by the facility within 30 days. Approximately 10% of breast cancers are not detected by mammography. A normal mammogram should not delay biopsy of a clinically suspicious abnormality. Electronically Signed: Tay Ignacio at 12:26 EDT Tel [phone], Service support [phone], CC: Emmanuelle Quiñonez DO General Office Clerk: Signed 29-Sep-2013 Brain W/WO Contrast Result: Comments: See Note; NOTES: [facility] Imaging Services [address] [place] [address] MRI Report MR#: [id number] Acct: [id number] Name: EUGENE OWENS Rep #: [id number] : 1945 F 67 From: Jess Rousseau MD PCP: Emmanuelle Quiñonez DO Status: REG CLI Study: Brain W/WO Contrast Date of Exam: 09/29/13 Exam# [id number] Ordering Dr: Josephine Stacy NUCLEAR PHYSICIAN-C STUDY: MRI BRAIN WITH AND WITHOUT CONTRAST REASON FOR EXAM: Female, 67 years old. Tremors of the right hand and arm. History of strokes, abnormal CT. TECHNIQUE: Standardized multiplanar fat and water weighted pulse sequences were obtained. 9 ml of Gadavist contrast material was administered intravenously for the contrast portion of the examination. COMPARISON: CT brain with and without contrast 09/05/2013. ___ FINDINGS: Dysgenetic corpus callosum, with only partially formed callosal body, with corresponding findings, including parallel and widely space lateral ventricles, colpocephaly and mild superior extension of the third ventricle. Normal extra- axial CSF spaces for the patient's age. No localized extra-axial fluid collection. There are multiple punctate and patc hy confluent foci of FLAIR and T2 signal hyperintensity in the bihemispheric white matter, compatible with moderate chronic microvascular ischemic disease in an individual of this age. Tiny dilated p erivascular spaces in the bilateral basal ganglia with suspected small remote right thalamic infarct. There is no evidence for recent intracranial ischemia or other cause of cytotoxic edema on diffusi on weighted imaging (DWI). Normal flow voids within the major intracranial circulation suggesting patency by spin echo criteria. Normal venous enhancement. Focal region of mild contrast enhancement in a somewhat curvilinear configuration involving the right frontal lobe, with evidence of mild adjacent encephalomalacia and gliosis, suggesting probable subacute insult, potentially post-traumatic versus vascular in etiology. Alternatively, this could be associated with a small developmental venous anomaly, given somewhat tubular configuration extending to the ependymal margin of the frontal h orn of the right lateral ventricle, best visualized on the post contrast coronal sequence (axial contrast T1 series 9 image 13, coronal contrast T1 series 10 image 3-6). This finding is faintly visua lized on the contrast-enhanced head CT of 09/05/2013. Consider followup to confirm stability as clinically warranted. GRE-T2*sequence may additionally be of benefit to evaluate for potential associated magnetic susceptibility. The sella appears mildly expanded and partially empty, with otherwise normal appearance of the visualized pituitary infundibulum, optic chiasm and hypothalamic region, with in the constraints of a routine brain study. Normal tectal plate and pineal gland. Normal midbrain, allen and medulla. Normal cerebellum. Normal basal cisterns. Small amount of fluid signal in the ri ght mastoid tip, most compatible with chronic mastoiditis. Normal visualized bilateral internal auditory canal structures, given routine brain imaging. Bilateral ocular lens implants, with no additi onal demonstrated orbital abnormality, within the constraints of a routine brain study. Circumferential mucosal thickening and bubbly secretions involving the left maxillary sinus, consistent with ch ronic sinusitis, with superimposed acute sinusitis potentially present, in the appropriate clinical setting. Mucosal thickening and opacification of the left sphenoid sinuses additionally noted, with minimal chronic sinusitis involving the bilateral ethmoid and right maxillary sinuses. Normal visualized extracranial soft tissue structures. Normal appearance of the calvarium and visualized osseou s skull base structures. Mild degenerative changes involving the visualized upper cervical spine. IMPRESSION: Dysgenesis of the corpus callosum with associated f indings. Chronic microvascular ischemic changes involving the bihemispheric white matter, with no visualized acute infarct. Small region of curvilinear contrast enhancement in the right frontal lob e, which may be related with small developmental venous or other vascular anomaly versus residua of traumatic or vascular insult. Consider continued surveillance to confirm stability, as clinically w arranted. Partially empty sella. Sinusitis, as noted above. Electronically Signed: Jess Rousseau MD at 17:54 EDT Tel , Service support [phone], CC: Josephine Quiñonez DO General Office Clerk: Signed 24-Sep-2013 Bilat Scrn Digital & CAD Result: Comments: See Note; NOTES: [facility] Imaging Services [facility] [place] [address] Breast Imaging Report MR#: [id number] Acct: [id number] Name: EUGENE OWENS Rep #: [id number] : 1945 F 67 From: Matt Cortes MD PCP: Emmanuelle Quiñonez DO Status: REG CLI Exam# [id number] Ordering Dr: Emmanuelle Quiñonez DO MAMMOGRAPHY - BILATERAL SCREENING REASON FOR EXAM: Female , 67 years old. Routine annual screening examination. PERTINENT HISTORY: Non- contributory. TECHNIQUE: Digital examination. Mediolateral oblique (MLO) and craniocaudad (CC) views of both breasts we re obtained. CAD: CAD was performed on this study. COMPARISON: Comparison is made with prior study dated September 17, 2012 and July 10, 2011. FINDINGS: The breast composition is almost entirely fatty with glandular tissue comprising less than 25% of the total breast volume. There are no dominant masses or suspicious calcifications. No other significant abno rmalities are identified. There has been no significant change since the prior study. IMPRESSION: Stable bilateral screening mammogram. Yearly follow-up recommen ded. (A) ASSESSMENT CATEGORY: BIRADS Category 2: Benign finding(s). A letter regarding these results will be sent to the patient by the facility within 30 days. Approximately 10% of breast cancers are not detected by mammography. A normal mammogram should not delay biopsy of a clinically suspicious abnormality. Electronically Signed: Matt Cortes MD at 13:45 EDT Tel [phone], Service support [phone], CC: Emmanuelle Quiñonez DO General Office Clerk: Signed 06-Sep-2013 Electroencephalogram Result: Comments: See Note; NOTES: [facility] Pulmonary Services/Neurology [address] [place] [address] Electroencephalogram (EEG) MR#: [id number] Acct: [id number] Name: SA RA Nohemi OWENS Rep #: [id number] : 1945 67 From: Ashu Bhatti MD Referring Dr: Emmanuelle Quiñonez DO Status: REG CLI Ordering Dr: Emmanuelle Quiñonez DO Date: 09/05/13 Location: CT Sex: F C DATE OF SERVICE: September 05, 2013 INTRODUCTION: This is an 18-channel EEG performed on this 67-year-old female with a history of mental status changes going down stairs. An 18- channel EEG was performed with EKG refere nce leads, photic stimulation, hyperventilation on this 67-year-old female. The International 10-20 electrode placement system was also utilized. Background activity is 9 Hz symmetrically in the post erior leads, which attenuates with eye opening. Hyperventilation was performed for 3 minutes with good effort with no lateralizing or epileptiform changes. The post hyperventilatory phase is unremarkab le. The patient remained awake throughout the recording with no lateralizing or epileptiform changes. Photic stimulation demonstrates normal symmetric driving response in the posterior leads. EKG rhyt hm strip recording was normal sinus rhythm throughout the recording. IMPRESSION: Normal awake electroencephalogram. 09/06/13 1342 <Electronically signed by Ashu Bhatti MD> Jorge e Ashu Bhatti MD CC: Emmanuelle Quiñonez DO; Ashu Bhatti MD Date Dictated: 09/05/13 1408 Date Transcribed: 09/05/13 1558 General Office Clerk: LEROY Signed 05-Sep-2013 Brain/Head W/WO Contrast Result: Comments: See Note; NOTES: [facility] Imaging Services [address] [place] [address] CAT Scan Report MR#: [id number] Acct: [id number] Name: EUGENE OWENS Rep #: [id number] : 1945 F 67 From: Alley Joe MD PCP: Emmanuelle Quiñonez DO Status: REG CLI Study: Brain/Head W/WO Contrast Date of Exam: 09/05/13 Exam# [id number] Ordering Dr: Emmanuelle Quiñonez DO STUDY: CT B RAIN WITH AND WITHOUT CONTRAST REASON FOR EXAM: Female, 67 years old. Several syncopal episodes in the last few months. RADIATION DOSAGE (If Supplied By Facility): CTDIvol = ( 58.60 ) mGy, DLP = ( 1600.08 ) mGycm TECHNIQUE: Transaxial CT imaging of the brain was performed pre and post contrast administration. The examination was performed with intravenous administration of 50 ml of Isovue 37 0 contrast material. COMPARISON: CT dated August 05, 2013. FINDINGS: There is mild widening of the cortical sulci and ventricles. Dysgenesis of the corpus callosu m is again noted, with separation of the lateral ventricles and a probable small midline cyst above the third ventricle. No intracranial hemorrhage is identified. Patchy hypodensities are again see n in the bilateral cerebral white matter, consistent with chronic small vessel ischemic disease. There is a small old lacunar infarct in the right thalamus. No acute edema is identified. The old inf arct is again noted in the lower left cerebellar hemisphere. No brainstem lesion is identified. Internal carotid artery calcifications are present. No abnormal enhancement is identified. No lesio n identified in the calvarium. Severe mucosal thickening in the left sphenoid sinus and mild left maxillary mucosal thickening. IMPRESSION: No acute abnormali ty identified. Stable chronic ischemic changes. Dysgenesis of the corpus callosum. Electronically Signed: Alley Damico MD at 9:35 EDT , Service support , CC: Emmanuelle Quiñonez DO General Office Clerk: Signed 05-Aug-2013 Brain/Head without Contrast Result: Comments: See Note; NOTES: [facility] Imaging Services [address] [place] [id number] CAT Scan Report MR#: [id number] Acct: [id number] Name: EUGENE OWENS Rep #: [id number] : 1945 F 67 From: Matt Cortes MD PCP: Emmanuelle Quiñonez DO Status: REG ER Study: Brain/Head without Contrast Date of Exam: 08/05/13 Exam# [id number] Ordering Dr: Frank Lane MD STUDY: CT BRAIN WITHOUT CONTRAST REASON FOR EXAM: Female, 67 years old. Syncopal episode. RADIATION DOSAGE (If Supplied By Facility): CTDIvol = ( 73.24 ) mGy, DLP = ( 957.75 ) mGycm TECHNIQUE: Transaxia l CT imaging of the brain was performed without administration of intravenous contrast material. COMPARISON: None. FINDINGS: Normal soft tissue structures. Nor mal calvarium. Normal size ventricles and extra-axial spaces for the patient's age. Normal white matter tracts of the cerebral hemispheres. Normal basal ganglia and thalami. Normal brainstem. Normal cerebellum. Cavum septum pellucidum. Partial absence of the corpus callosum. There is no intracranial hemorrhage. There are no findings of an acute ischemic infarction. There is calcification of th e vertebral arteries as well as the cavernous portions of the internal carotid arteries bilaterally. Opacification of the left sphenoid sinus. 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 Opacification of the left sphenoid sinus. Electronically Signed: Matt Cortes MD at 15:35 EDT Tel [phone], Service support [phone], F ax [phone] CC: Emmanuelle Quiñonez DO; Frank Lane MD General Office Clerk: Signed 05-Aug-2013 Chest PA and Lateral Result: Comments: See Note; NOTES: [facility] Imaging Services [address] [place] [address] Radiology Report MR#: [id number] Acct: [id number] Name: EUGENE OWENS Rep #: [id number] : 1945 F 67 From: Matt Cortes MD PCP: Emmanuelle Quiñonez DO Status: REG ER Study: Chest PA and Lateral Date of Exam: 08/05/13 Exam# [id number] Ordering Dr: Frank Lane MD STUDY: X-RAY CHEST REASON FOR EXAM: Female, 67 years old. Syncope. TECHNIQUE: PA and lateral views of the chest. COMPARISON: Comparison is made with prior study dated February 01, 2013. FINDINGS: EKG electrodes are seen. The lungs are clear and expanded. Calcified old granulomatous disease. There is no demonstrated pleural abnormality. Normal size heart. Normal med iastinum and roger. Normal visualized pulmonary arteries. There is atherosclerotic tortuosity of the aortic arch and descending thoracic aorta. There are diffuse degenerative changes of the visualize d thoracic spine. Normal visualized ribs, clavicles, and shoulders. There is no demonstrated abnormality of the visualized soft tissue structures of the upper abdomen. IMPRESSION: No acute abnormality is present. Electronically Signed: Matt Cortes MD at 15:38 EDT Tel [phone], Service support [phone], RAD/Chest PA and Lateral IMPRESSION: No acute abnormality is present. Electronically Signed: Matt Cortes MD at 15:38 EDT Tel [phone], Service support , CC: Emmanuelle Quiñonez DO; Frank Lane MD General Office Clerk: Signed Family History Unknown Family Member Name Dates Details Brother 1 Comments: stroke Status: Active Father Comments: living and not healthy - hx of stroke dm htn skin cancer Status: Active Mother Comments: dm, htn and heart disease Status: Active Sister 1 Comments: age 65- als Status: Active Son 1 Comments: age 49- mi Status: Active Social History Name Dates Details No Caffeine Use Status: Active Non Drinker/No Alcohol Use Status: Active Tobacco use: Never smoker. Status: Active Smoking Status Name Dates Details Never smoker Vital Signs Date Test Result Details [id number] Pulse 87 /min Comments: Pattern: Regular Respiration Rate 18 /min Comments: Pattern: Unlabored O2 SAT 97 % Comments: Room air BP Systolic 142 mm[Hg] Comments: Patient Position: Sitting; Cuff Location: Left Arm; Cuff Size: Large BP Diastolic 80 mm[Hg] Comments: Patient Position: Sitting; Cuff Location: Left Arm; Cuff Size: Large Weight 190.375 lb Height 61.75 in Body Mass Index Calculated 35.1 kg/m2 Body Surface Area Calculated 1.87 m2 :09 Pulse 111 /min Comments: Pattern: Regular Respiration Rate 18 /min Comments: Pattern: Unlabored O2 SAT 91 % Comments: Room air BP Systolic 138 mm[Hg] Comments: Patient Position: Sitting; Cuff Location: Left Arm; Cuff Size: Large BP Diastolic 72 mm[Hg] Comments: Patient Position: Sitting; Cuff Location: Left Arm; Cuff Size: Large Weight 195.125 lb Height 61.75 in Body Mass Index Calculated 35.98 kg/m2 Body Surface Area Calculated 1.89 m2 :32 Pulse 90 /min Comments: Pattern: Regular Respiration Rate 18 /min Comments: Pattern: Unlabored O2 SAT 96 % Comments: Room air BP Systolic 134 mm[Hg] Comments: Patient Position: Sitting; Cuff Location: Left Arm; Cuff Size: Large BP Diastolic 78 mm[Hg] Comments: Patient Position: Sitting; Cuff Location: Left Arm; Cuff Size: Large Weight 195 lb Height 61.75 in Body Mass Index Calculated 35.95 kg/m2 Body Surface Area Calculated 1.89 m2 :34 Pulse 95 /min Comments: Pattern: Regular Respiration Rate 18 /min Comments: Pattern: Unlabored O2 SAT 93 % Comments: Room air BP Systolic 142 mm[Hg] Comments: Patient Position: Sitting; Cuff Location: Left Arm; Cuff Size: Large BP Diastolic 78 mm[Hg] Comments: Patient Position: Sitting; Cuff Location: Left Arm; Cuff Size: Large Weight 195 lb Height 61.75 in Body Mass Index Calculated 35.95 kg/m2 Body Surface Area Calculated 1.89 m2 :49 Temperature 98.2 f Comments: Method: Temporal Pulse 61 /min Comments: Pattern: Regular Respiration Rate 16 /min Comments: Pattern: Unlabored O2 SAT 96 % Comments: Room air BP Systolic 122 mm[Hg] Comments: Patient Position: Sitting; Cuff Location: Left Arm; Cuff Size: Standard BP Diastolic 74 mm[Hg] Comments: Patient Position: Sitting; Cuff Location: Left Arm; Cuff Size: Standard Weight 195 lb Height 61.75 in Body Mass Index Calculated 35.95 kg/m2 Body Surface Area Calculated 1.89 m2 :11 Pulse 86 /min Comments: Pattern: Regular Respiration Rate 18 /min O2 SAT 95 % Comments: Room air BP Systolic 138 mm[Hg] BP Diastolic 78 mm[Hg] Weight 194.375 lb Height 61.75 in Body Mass Index Calculated 35.84 kg/m2 Body Surface Area Calculated 1.88 m2 :02 Pulse 92 /min Comments: Pattern: Regular Respiration Rate 18 /min Comments: Pattern: Unlabored O2 SAT 95 % Comments: Room air BP Systolic 138 mm[Hg] Comments: Patient Position: Sitting; Cuff Location: Left Arm; Cuff Size: Large BP Diastolic 82 mm[Hg] Comments: Patient Position: Sitting; Cuff Location: Left Arm; Cuff Size: Large Weight 187.25 lb Height 61.75 in Body Mass Index Calculated 34.53 kg/m2 Body Surface Area Calculated 1.85 m2 :05 Pulse 68 /min Comments: Pattern: Regular Respiration Rate 18 /min Comments: Pattern: Unlabored O2 SAT 95 % Comments: Room air BP Systolic 128 mm[Hg] Comments: Patient Position: Sitting; Cuff Location: Left Arm; Cuff Size: Large BP Diastolic 70 mm[Hg] Comments: Patient Position: Sitting; Cuff Location: Left Arm; Cuff Size: Large Weight 187.375 lb Height 61.75 in Body Mass Index Calculated 34.55 kg/m2 Body Surface Area Calculated 1.85 m2 :57 BP Systolic 132 mm[Hg] Comments: Patient Position: Sitting; Cuff Location: Left Arm; Cuff Size: Standard BP Diastolic 62 mm[Hg] Comments: Patient Position: Sitting; Cuff Location: Left Arm; Cuff Size: Standard :41 Temperature 97.5 f Comments: Method: Temporal Pulse 116 /min Comments: Pattern: Regular Respiration Rate 16 /min Comments: Pattern: Unlabored BP Systolic 156 mm[Hg] Comments: Patient Position: Sitting; Cuff Location: Left Arm; Cuff Size: Standard BP Diastolic 82 mm[Hg] Comments: Patient Position: Sitting; Cuff Location: Left Arm; Cuff Size: Standard Weight 187.5 lb Height 61.75 in Body Mass Index Calculated 34.57 kg/m2 Body Surface Area Calculated 1.85 m2 :33 Pulse 78 /min Comments: Pattern: Regular Respiration Rate 18 /min Comments: Pattern: Unlabored O2 SAT 92 % Comments: Room air BP Systolic 142 mm[Hg] Comments: Patient Position: Sitting; Cuff Location: Left Arm; Cuff Size: Large BP Diastolic 80 mm[Hg] Comments: Patient Position: Sitting; Cuff Location: Left Arm; Cuff Size: Large Weight 194.5 lb Height 61.75 in Body Mass Index Calculated 35.86 kg/m2 Body Surface Area Calculated 1.88 m2 :29 Comments: hearing wnlFamily vision had a glaucoma test done Pulse 87 /min Comments: Pattern: Regular Respiration Rate 18 /min Comments: Pattern: Unlabored O2 SAT 97 % Comments: Room air BP Systolic 140 mm[Hg] Comments: Patient Position: Sitting; Cuff Location: Left Arm; Cuff Size: Large BP Diastolic 78 mm[Hg] Comments: Patient Position: Sitting; Cuff Location: Left Arm; Cuff Size: Large Weight 197 lb Height 61.75 in Body Mass Index Calculated 36.32 kg/m2 Body Surface Area Calculated 1.89 m2 :50 Pulse 82 /min Comments: Pattern: Regular Respiration Rate 18 /min Comments: Pattern: Unlabored O2 SAT 98 % Comments: Room air BP Systolic 128 mm[Hg] Comments: Patient Position: Sitting; Cuff Location: Left Arm; Cuff Size: Large BP Diastolic 87 mm[Hg] Comments: Patient Position: Sitting; Cuff Location: Left Arm; Cuff Size: Large Weight 202.25 lb Height 61.75 in Body Mass Index Calculated 37.29 kg/m2 Body Surface Area Calculated 1.92 m2 :01 Temperature 96.5 f Comments: Method: Tympanic Pulse 86 /min Comments: Pattern: Regular Respiration Rate 18 /min Comments: Pattern: Unlabored O2 SAT 97 % Comments: Room air BP Systolic 116 mm[Hg] Comments: Patient Position: Sitting; Cuff Location: Left Arm; Cuff Size: Standard BP Diastolic 64 mm[Hg] Comments: Patient Position: Sitting; Cuff Location: Left Arm; Cuff Size: Standard Weight 195 lb Height 61.75 in Body Mass Index Calculated 35.95 kg/m2 Body Surface Area Calculated 1.89 m2 :04 Temperature 97.6 f Comments: Method: Temporal Pulse 71 /min Comments: Pattern: Regular Respiration Rate 16 /min Comments: Pattern: Unlabored O2 SAT 96 % Comments: Room air BP Systolic 136 mm[Hg] Comments: Patient Position: Sitting; Cuff Location: Left Arm; Cuff Size: Standard BP Diastolic 80 mm[Hg] Comments: Patient Position: Sitting; Cuff Location: Left Arm; Cuff Size: Standard Weight 195 lb Height 61.75 in Body Mass Index Calculated 35.95 kg/m2 Body Surface Area Calculated 1.89 m2 :26 Pulse 74 /min Comments: Pattern: Regular O2 SAT 98 % Comments: Room air BP Systolic 160 mm[Hg] Comments: Patient Position: Sitting; Cuff Location: Left Arm; Cuff Size: Standard BP Diastolic 62 mm[Hg] Comments: Patient Position: Sitting; Cuff Location: Left Arm; Cuff Size: Standard Weight 197 lb Height 61.75 in Body Mass Index Calculated 36.32 kg/m2 Body Surface Area Calculated 1.89 m2 :47 Temperature 96.8 f Comments: Method: Temporal Pulse 80 /min Comments: Pattern: Regular Respiration Rate 16 /min Comments: Pattern: Unlabored O2 SAT 97 % Comments: Room air BP Systolic 152 mm[Hg] Comments: Patient Position: Sitting; Cuff Location: Left Arm; Cuff Size: Standard BP Diastolic 82 mm[Hg] Comments: Patient Position: Sitting; Cuff Location: Left Arm; Cuff Size: Standard Weight 197 lb Height 61.75 in Body Mass Index Calculated 36.32 kg/m2 Body Surface Area Calculated 1.89 m2 :41 Temperature 96.8 f Comments: Method: Temporal Pulse 76 /min Comments: Pattern: Regular Respiration Rate 16 /min Comments: Pattern: Unlabored BP Systolic 136 mm[Hg] Comments: Patient Position: Sitting; Cuff Location: Left Arm; Cuff Size: Large BP Diastolic 80 mm[Hg] Comments: Patient Position: Sitting; Cuff Location: Left Arm; Cuff Size: Large Weight 197 lb Height 61.75 in Body Mass Index Calculated 36.32 kg/m2 Body Surface Area Calculated 1.89 m2 :49 Temperature 97.6 f Comments: Method: Temporal Pulse 72 /min Comments: Pattern: Regular Respiration Rate 16 /min Comments: Pattern: Unlabored O2 SAT 97 % Comments: Room air BP Systolic 152 mm[Hg] Comments: Patient Position: Sitting; Cuff Location: Left Arm; Cuff Size: Standard BP Diastolic 70 mm[Hg] Comments: Patient Position: Sitting; Cuff Location: Left Arm; Cuff Size: Standard Weight 192 lb Height 61.75 in Body Mass Index Calculated 35.4 kg/m2 Body Surface Area Calculated 1.87 m2 :57 BP Systolic 148 mm[Hg] Comments: Patient Position: Sitting BP Diastolic 78 mm[Hg] Comments: Patient Position: Sitting :24 Temperature 98 f Comments: Method: Oral Pulse 78 /min Comments: Pattern: Regular Respiration Rate 16 /min Comments: Pattern: Unlabored BP Systolic 160 mm[Hg] Comments: Patient Position: Sitting; Cuff Location: Left Arm; Cuff Size: Large BP Diastolic 78 mm[Hg] Comments: Patient Position: Sitting; Cuff Location: Left Arm; Cuff Size: Large Weight 192 lb Height 61.75 in Body Mass Index Calculated 35.4 kg/m2 Body Surface Area Calculated 1.87 m2 :50 Temperature 97.1 f Comments: Method: Tympanic Pulse 96 /min Comments: Pattern: Regular Respiration Rate 18 /min Comments: Pattern: Unlabored O2 SAT 96 % Comments: Room air BP Systolic 140 mm[Hg] Comments: Patient Position: Sitting; Cuff Location: Left Arm; Cuff Size: Standard BP Diastolic 70 mm[Hg] Comments: Patient Position: Sitting; Cuff Location: Left Arm; Cuff Size: Standard Weight 190 lb Height 61.75 in Body Mass Index Calculated 35.03 kg/m2 Body Surface Area Calculated 1.86 m2 :14 Temperature 97.9 f Comments: Method: Temporal Pulse 78 /min Comments: Pattern: Regular O2 SAT 98 % Comments: Room air BP Systolic 120 mm[Hg] Comments: Patient Position: Standing; Cuff Location: Left Arm; Cuff Size: Large BP Diastolic 78 mm[Hg] Comments: Patient Position: Standing; Cuff Location: Left Arm; Cuff Size: Large Weight 190 lb Height 61.75 in Body Mass Index Calculated 35.03 kg/m2 Body Surface Area Calculated 1.86 m2 :12 Temperature 97.3 f Pulse 72 /min Comments: Pattern: Regular Respiration Rate 16 /min Comments: Pattern: Unlabored BP Systolic 184 mm[Hg] Comments: Patient Position: Sitting; Cuff Location: Left Arm; Cuff Size: Standard BP Diastolic 90 mm[Hg] Comments: Patient Position: Sitting; Cuff Location: Left Arm; Cuff Size: Standard Weight 190 lb Height 61.75 in Body Mass Index Calculated 35.03 kg/m2 Body Surface Area Calculated 1.86 m2 :48 BP Systolic 162 mm[Hg] Comments: Patient Position: Sitting BP Diastolic 88 mm[Hg] Comments: Patient Position: Sitting :46 Temperature 96.1 f Pulse 96 /min Comments: Pattern: Regular Respiration Rate 18 /min Comments: Pattern: Unlabored BP Systolic 142 mm[Hg] Comments: Patient Position: Sitting; Cuff Location: Left Arm; Cuff Size: Large BP Diastolic 90 mm[Hg] Comments: Patient Position: Sitting; Cuff Location: Left Arm; Cuff Size: Large Weight 189 lb Height 61.75 in Body Mass Index Calculated 34.85 kg/m2 Body Surface Area Calculated 1.86 m2 :55 Temperature 96.9 f Pulse 86 /min Comments: Pattern: Regular Respiration Rate 16 /min Comments: Pattern: Unlabored BP Systolic 136 mm[Hg] Comments: Patient Position: Sitting; Cuff Location: Left Arm; Cuff Size: Standard BP Diastolic 84 mm[Hg] Comments: Patient Position: Sitting; Cuff Location: Left Arm; Cuff Size: Standard Weight 196 lb Height 61.75 in Body Mass Index Calculated 36.14 kg/m2 Body Surface Area Calculated 1.89 m2 :00 Temperature 98.1 f Pulse 94 /min Comments: Pattern: Regular Respiration Rate 16 /min Comments: Pattern: Unlabored BP Systolic 112 mm[Hg] Comments: Patient Position: Sitting; Cuff Location: Left Arm; Cuff Size: Large BP Diastolic 62 mm[Hg] Comments: Patient Position: Sitting; Cuff Location: Left Arm; Cuff Size: Large Weight 192 lb Height 61.75 in Body Mass Index Calculated 35.4 kg/m2 Body Surface Area Calculated 1.87 m2 :31 Comments: supine: 142/80 P 84sittin/72 P 89standin/80 P 99 Temperature 97.6 f Pulse 92 /min Comments: Pattern: Regular Respiration Rate 18 /min Comments: Pattern: Unlabored BP Systolic 136 mm[Hg] Comments: Patient Position: Sitting; Cuff Location: Left Arm; Cuff Size: Large BP Diastolic 84 mm[Hg] Comments: Patient Position: Sitting; Cuff Location: Left Arm; Cuff Size: Large Weight 192 lb Height 61.75 in Body Mass Index Calculated 35.4 kg/m2 Body Surface Area Calculated 1.87 m2 :25 Temperature 97.2 f Pulse 94 /min Comments: Pattern: Regular Respiration Rate 18 /min Comments: Pattern: Unlabored BP Systolic 132 mm[Hg] Comments: Patient Position: Sitting; Cuff Location: Left Arm; Cuff Size: Large BP Diastolic 80 mm[Hg] Comments: Patient Position: Sitting; Cuff Location: Left Arm; Cuff Size: Large Weight 192 lb Height 61.75 in Body Mass Index Calculated 35.4 kg/m2 Body Surface Area Calculated 1.87 m2 :57 Temperature 96.6 f Pulse 102 /min Comments: Pattern: Regular Respiration Rate 18 /min Comments: Pattern: Unlabored O2 SAT 96 % Comments: Room air BP Systolic 112 mm[Hg] Comments: Patient Position: Sitting; Cuff Location: Left Arm; Cuff Size: Large BP Diastolic 78 mm[Hg] Comments: Patient Position: Sitting; Cuff Location: Left Arm; Cuff Size: Large Weight 192 lb Height 61.75 in Body Mass Index Calculated 35.4 kg/m2 Body Surface Area Calculated 1.87 m2 :48 Temperature 97.2 f Pulse 98 /min Comments: Pattern: Regular Respiration Rate 18 /min Comments: Pattern: Unlabored BP Systolic 130 mm[Hg] Comments: Patient Position: Sitting; Cuff Location: Left Arm; Cuff Size: Large BP Diastolic 78 mm[Hg] Comments: Patient Position: Sitting; Cuff Location: Left Arm; Cuff Size: Large Weight 192 lb Height 61.75 in Body Mass Index Calculated 35.4 kg/m2 Body Surface Area Calculated 1.87 m2 :10 Temperature 96 f Comments: Method: Oral Pulse 84 /min Comments: Pattern: Regular Respiration Rate 18 /min Comments: Pattern: Unlabored BP Systolic 132 mm[Hg] Comments: Patient Position: Sitting; Cuff Location: Left Arm; Cuff Size: Large BP Diastolic 80 mm[Hg] Comments: Patient Position: Sitting; Cuff Location: Left Arm; Cuff Size: Large Weight 189 lb Height 61.75 in Body Mass Index Calculated 34.85 kg/m2 Body Surface Area Calculated 1.86 m2 :23 Temperature 95.3 f Pulse 96 /min Comments: Pattern: Regular Respiration Rate 18 /min Comments: Pattern: Unlabored BP Systolic 132 mm[Hg] Comments: Patient Position: Sitting; Cuff Location: Left Arm; Cuff Size: Large BP Diastolic 74 mm[Hg] Comments: Patient Position: Sitting; Cuff Location: Left Arm; Cuff Size: Large Weight 190 lb Height 61.75 in Body Mass Index Calculated 35.03 kg/m2 Body Surface Area Calculated 1.86 m2 :01 Temperature 97.3 f Comments: Method: Oral Pulse 96 /min Comments: Pattern: Regular Respiration Rate 18 /min Comments: Pattern: Unlabored BP Systolic 142 mm[Hg] Comments: Patient Position: Sitting; Cuff Location: Left Arm; Cuff Size: Standard BP Diastolic 74 mm[Hg] Comments: Patient Position: Sitting; Cuff Location: Left Arm; Cuff Size: Standard Weight 189 lb Height 61.75 in Body Mass Index Calculated 34.85 kg/m2 Body Surface Area Calculated 1.86 m2 :18 Temperature 97.8 f Pulse 92 /min Comments: Pattern: Regular Respiration Rate 18 /min Comments: Pattern: Unlabored BP Systolic 162 mm[Hg] Comments: Patient Position: Sitting; Cuff Location: Left Arm; Cuff Size: Large BP Diastolic 90 mm[Hg] Comments: Patient Position: Sitting; Cuff Location: Left Arm; Cuff Size: Large Weight 187 lb Height 61.75 in Body Mass Index Calculated 34.48 kg/m2 Body Surface Area Calculated 1.85 m2 :22 Temperature 98.5 f Pulse 96 /min Comments: Pattern: Regular Respiration Rate 18 /min Comments: Pattern: Unlabored BP Systolic 158 mm[Hg] Comments: Patient Position: Sitting; Cuff Location: Left Arm; Cuff Size: Large BP Diastolic 84 mm[Hg] Comments: Patient Position: Sitting; Cuff Location: Left Arm; Cuff Size: Large Weight 189 lb Height 61.75 in Body Mass Index Calculated 34.85 kg/m2 Body Surface Area Calculated 1.86 m2 :14 Temperature 97.3 f Pulse 104 /min Comments: Pattern: Regular Respiration Rate 16 /min Comments: Pattern: Unlabored BP Systolic 156 mm[Hg] Comments: Patient Position: Sitting; Cuff Location: Left Arm; Cuff Size: Large BP Diastolic 90 mm[Hg] Comments: Patient Position: Sitting; Cuff Location: Left Arm; Cuff Size: Large Weight 190 lb Height 61.75 in Body Mass Index Calculated 35.03 kg/m2 Body Surface Area Calculated 1.86 m2 :58 Pulse 92 /min Comments: Pattern: Regular Respiration Rate 18 /min Comments: Pattern: Unlabored BP Systolic 164 mm[Hg] Comments: Patient Position: Sitting; Cuff Location: Left Arm; Cuff Size: Standard BP Diastolic 92 mm[Hg] Comments: Patient Position: Sitting; Cuff Location: Left Arm; Cuff Size: Standard Weight 187 lb Height 61.75 in Body Mass Index Calculated 34.48 kg/m2 Body Surface Area Calculated 1.85 m2 :12 Temperature 98.1 f Pulse 84 /min Comments: Pattern: Regular Respiration Rate 18 /min Comments: Pattern: Unlabored BP Systolic 148 mm[Hg] Comments: Patient Position: Sitting; Cuff Location: Left Arm; Cuff Size: Large BP Diastolic 92 mm[Hg] Comments: Patient Position: Sitting; Cuff Location: Left Arm; Cuff Size: Large Weight 187 lb Height 61.75 in Body Mass Index Calculated 34.48 kg/m2 Body Surface Area Calculated 1.85 m2 Results Date Description Value Details :40 HgA1C , Office (98345) HgA1C , Office 6.4 % (Normal) Range: 4.6 - 7.1 :40 Blood Glucose , Office (63013) Blood Glucose , Office 122 (Normal) :23 CBC W/Diff, Automated Comments: [facility] [id number] Millie [place], [place], [id number] Absolute Lymph 1.65 {X10_3/ul} (Normal) Range: 0.83-4.51 Absolute Neut 6.5 {X10_3/uL} (Normal) Range: 2.0-7.7 IM GRAN % 0.200 % (Normal) Range: 0.0-0.9 Comments: IG% - Immature Granulocytes (promyelocytes, myelocytes andmetamyelocytes) > 1% indicates that a LEFT SHIFT is Present. BASO% 0.7 % (Normal) Range: 0-1 EO% 4.8 % (Normal) Range: 0-5 MONO% 10.9 % (Abnormal) Range: 0-10 LY% 17.0 % (Abnormal) Range: 19-41 NEUT% 66.4 % (Normal) Range: 47-70 MPV 9.2 fL (Normal) Range: 6.2-12.0 PLT 416 K/mm3 (Normal) Range: 150-450 RDW SD 41.1 fL (Normal) Range: 35.1-43.9 RDW CV 13.2 % (Normal) Range: 11.6-14.6 MCHC 33.0 {g/gl} (Normal) Range: 32-36 MCH 28.6 pg (Normal) Range: 27.0-32.0 MCV 86.8 fL (Normal) Range: 81-99 HCT 40.6 % (Normal) Range: 37-47 HGB 13.4 g/dL (Normal) Range: 12.0-15.0 RBC 4.68 {M/mm3} (Normal) Range: 4.2-5.4 WBC 9.7 K/mm3 (Normal) Range: 4.4-11.0 84-[id number]:23 Comprehensive Metabolic Profil Comments: [facility] [id number] [place], [place], [id number] GAP 12 (Normal) Range: 5-15 CO2 28.0 mmol/L (Normal) Range: 21.0-32.0 CL 94 mmol/L (Abnormal) Range: 98-107 K 3.7 mmol/L (Normal) Range: 3.5-5.1 NA 134 mmol/L (Abnormal) Range: 136-145 T BILI 0.60 mg/dL (Normal) Range: 0.20-1.00 ALT 10 U/L (Abnormal) Range: 13-56 ALK P 103 U/L (Normal) Range: 45-117 AST 16 U/L (Normal) Range: 15-37 CA 8.9 mg/dL (Normal) Range: 8.5-10.1 A/G 0.7 {RATIO} (Abnormal) Range: 0.9-2.4 GLOB 4.6 g/dL (Abnormal) Range: 2.2-4.2 ALB 3.4 g/dL (Normal) Range: 3.2-5.0 T PROT 8.0 g/dL (Normal) Range: 6.4-8.2 BUN/CRE 15.9 {RATIO} (Normal) Range: 10-20 EST GFR - AA 107 mL/min (Normal) Comments: GFR Calc EST GFR 89 mL/min (Normal) Comments: Non- GFR Calc CREAT,SERUM 0.69 mg/dL (Normal) Range: 0.55-1.02 Comments: The validity of the calculated GFR AND GFRAA in patients over70 years has not been determined. Clinical correlation isessential. BUN 11 mg/dL (Normal) Range: 7-18 GLU 46 mg/dL (Abnormal) Range: 74-106 Comments: Glucose result less than 50 mg/dL suggests HYPOGLYCEMIA.Please note revised GLUCOSE reference range aadndfgej86/02/2018. [id number] NMR Lipoprofile Comments: [facility] (refer to report for specific site)refer to report for address and phone number [id number] SCORE 35 (Normal) Comments: INSULIN RESISTANCE MARKER <--Insulin Sensitive Insulin Resistant--> Percentile in Reference PopulationInsulin Resistance ScoreLP-IR Score Low 25th 50th 75th High <27 27 45 63 >63LP-IR Score is inaccurate if patient is non-fasting.The LP-IR score is a laboratory developed index that hasbeen associated with insulin resistance and diabetes riskand should be used as one component of a physician'sclinical assessment. The LP-IR score listed above has notbeen cleared by the US Food and Drug Administration.Performed at: - [address] [id number] Director: Thaddeus Glasgow MD, Phone: [phone] INS RES/DIAB RK . (Normal) LDL SIZE 20.4 nm (Abnormal) Comments: INTERPRETATIVE INFORMATION PARTICLE CONCENTRATION AND SIZE <--Lower CVD Risk Highe r CVD Risk--> LDL AND HDL PARTICLES Percentile in Reference Population HDL-P (total) High 75th 50th 25th Low >34.9 34.9 30.5 26.7 <26.7 Small LDL-P Low 25th 50th 75th High <117 117 527 839 >839 LDL Size <-Large (Pattern A)-> <-Small (Pattern B)-> 23.0 20.6 20.5 19.0 Small LDL-P and LDL Size are associated with CVD risk, butnot after LDL-P is taken into account .These assays were developed and their performancecharacteristics determined by [employer]. These assayshave not been cleared by the US Food and DrugAdministration. The clinical utility of these laboratoryvalues have not been fully established. SMALL LDL-P 151 nmol/L (Normal) HDL-P TOTAL 33.9 umol/L (Normal) LD HD PARTICLES . (Normal) LDL-P 342 nmol/L (Normal) Comments: Low < 1000 Moderate 1000 - 1299 Borderline- High 1300 - 1599 High 1600 - 2000 Very High > 2000 TRIGLYCERIDES 95 mg/dL (Normal) Range: 0-149 HDL-C 50 mg/dL (Normal) LDL-C 37 mg/dL (Normal) Range: 0-99 Comments: Optimal < 100 Above optimal 100 - 129 Borderline 130 - 159 High 160 - 189 Very high > 189LDL-C is inaccurate if patient is non-fasting. CHOLESTEROL TOT 106 mg/dL (Normal) Range: 100-199 LIPIDS . (Normal) 09-Cez-89363:23 Thyroid Stim Hormone (TSH) Comments: [facility] [address] [facility] [place], [place], [address] TSH 2.93 {uIU/mL} (Normal) Range: 0.358-3.74 :23 Vitamin D,25 Hydroxy Comments: [facility] [address] [place], [place], [address] Vitamin D 25-OH 11.8 ng/mL (Abnormal) Range: 29.95-100.01 Comments: Vitamin D 25(OH) Status Range Deficiency <20 ng/mL (50nmol/L) Insuffciency 20 - 30 ng/mL (50 - 75 nmol/L) Sufficiency 30 - 100 ng/mL (75 - 250 nmol/L) Toxicity >100 ng/mL (>250 nmol/L) 34-Jte-190484:04 HgA1C , Office (65250) HgA1C , Office 6.9 % (Normal) Range: 4.6 - 7.1 40-Xao-110728:04 Blood Glucose , Office (26036) Blood Glucose , Office 157 (Normal) :37 Pathology Report Comments: PERFORMED BY: MARCIE LabCoashutosh Henlawson Gdcs3029 [facility] [id number] BY: [facility] Dermatopathology [address] [place] [address] [id number] Information: [id number] See MATER Comments: Material submitted: .RIGHT CHEEKClinical history: .SKIN LESION RAISED IRREGULAR BLEEDING/SCABBED 1/2 Note (Normal) Diagnosis:IRRITATED AND INFLAMED SEBORRHEIC KERATOSIS WITH VERRUCOUSFEATURES.08/30/2017 Electronically signed: .Hiro Sims MD, DermatopathologistGross description: .RECEIVED IN FORMALIN LABELED EUGENE OWENS IS A DOE VARELA CRUSTY SKIN NODULE (8X 6 X 5 MM). INKED AT THE MARGIN OF RESECTION, SECTIONED AND ENTIRELYSUBMITTED IN ONE CASSETTE.DKS/SMIPathologist provided ICD-10:L82.0CPT .[id number] 1-Juj-962936:04 HgA1C , Office (24824) HgA1C , Office 6.5 % (Normal) Range: 4.6 - 7.1 :04 Blood Glucose , Office (78422) Blood Glucose , Office 119 (Normal) :40 Microscopic Examination Comments: PATIENT WAS FASTINGPERFORMED BY: [employer]6370 [facility] [id number] Bacteria Few (Normal) Mucus Threads Present (Normal) Crystal Type Amorphous Sediment (Normal) Crystals Present (Abnormal) Epithelial Cells (non renal) 0-10 {/hpf} (Normal) Range: 0 - 10 RBC 0-2 {/hpf} (Normal) Range: 0 - 2 WBC 0-5 {/hpf} (Normal) Range: 0 - 5 09-Tkr-158097:05 CREATININE FINGERSTICK Comments: [facility] LaboratoryPoint of Fq[address] [place] [address] EGFR WB > 60.0000 mL/min (Normal) CREATININE WB 0.6 mg/dL (Normal) Range: 0.55-1.02 2-Afh-214997:08 Urinalysis, Office (69221) UA - LEUKOCYTE ESTERASE Small (Normal) UA - NITRITE Negative (Normal) URINE UROBILINGN GLORY TIMED Normal mg/dL (Normal) UA - PROTEIN 100 mg/dL (Normal) UA - PH 6 (Abnormal) UA - BLOOD Non Hemolyzed Trace (Normal) UA - SPECIFIC GRAVITY 1.020 (Normal) UA - KETONES 15 mg/dL (Abnormal) UA - BILIRUBIN Negative (Normal) UA - GLUCOSE Negative (Normal) 0-Dor-932719:26 URINE GISELLE CULTURE-IDENTIFICATN Comments: PATIENT NOT FASTINGPERFORMED BY: [employer] [facility] [id number] Information: SRC:UC (88076) Result 1 MUG (Normal) Comments: Mixed urogenital flora10,000-25,000 colony forming units per mL Urine Final report (Normal) Culture,Comprehensive 4-Wul-743479:51 HgA1C , Office (80930) HgA1C , Office 6.7 % (Normal) Range: 4.6 - 7.1 9-Rga-390782:51 Blood Glucose , Office (80206) Blood Glucose , Office 225 (Normal) 03-Jul-20178:40 TSH (79160) Comments: PATIENT WAS FASTINGPERFORMED BY: [employer] Labfundfindrrp Wkxbsb0867 [facility] [id number] TSH 3.800 {uIU/mL} (Normal) Range: 0.450-4.500 :40 URINALYSIS, W/ MICRO (89311) Comments: PATIENT WAS FASTINGPERFORMED BY: HealthScript[facility] of AmericaSaint Barnabas Medical CenterLftbrs4849 [facility] [id number] Microscopic Examination See below: (Normal) Comments: Microscopic was indicated and was performed. Nitrite, Urine Negative (Normal) Urobilinogen,Semi-Qn 0.2 mg/dL (Normal) Range: 0.2-1.0 Bilirubin Negative (Normal) Occult Blood Negative (Normal) Ketones Negative (Normal) Glucose Negative (Normal) Protein 1+ (Abnormal) WBC Esterase 1+ (Abnormal) Appearance Clear (Normal) Urine-Color Yellow (Normal) pH 7.5 (Normal) Range: 5.0-7.5 Specific [place] 1.018 (Normal) Range: 1.005-1.030 :40 MICROALBUMIN: CREATININE RATIO Comments: PATIENT WAS FASTINGPERFORMED BY: HealthScripts of AmericaSaint Barnabas Medical CenterZwfmfr7562 [facility] [id number] (54500) AND (20158) Alb/Creat Ratio 557.7 {mg/g_creat} (Abnormal) Range: 0.0-30.0 Albumin, Urine 187.4 ug/mL (Normal) Creatinine, Urine 33.6 mg/dL (Normal) :40 METABOLIC PANEL, COMPREHENSIVE Comments: PATIENT WAS FASTINGPERFORMED BY: [facility]6370 [facility] [id number] (69122) ALT (SGPT) 6 [iU]/L (Normal) Range: 0-32 AST (SGOT) 15 [iU]/L (Normal) Range: 0-40 Alkaline Phosphatase 119 [iU]/L (Abnormal) Range: 39-117 Bilirubin, Total 0.6 mg/dL (Normal) Range: 0.0-1.2 A/G Ratio 1.2 (Normal) Range: 1.2-2.2 Globulin, Total 3.8 g/dL (Normal) Range: 1.5-4.5 Albumin 4.4 g/dL (Normal) Range: 3.5-4.8 Protein, Total 8.2 g/dL (Normal) Range: 6.0-8.5 Calcium 9.8 mg/dL (Normal) Range: 8.7-10.3 Carbon Dioxide, Total 28 mmol/L (Normal) Range: 18-29 Chloride 89 mmol/L (Abnormal) Range: 96-106 Potassium 4.4 mmol/L (Normal) Range: 3.5-5.2 Sodium 134 mmol/L (Normal) Range: 134-144 BUN/Creatinine Ratio 16 (Normal) Range: 12-28 eGFR If Africn Am 101 mL/min/1.73 (Normal) eGFR If NonAfricn Am 87 mL/min/1.73 (Normal) Creatinine 0.69 mg/dL (Normal) Range: 0.57-1.00 BUN 11 mg/dL (Normal) Range: 8-27 Glucose 80 mg/dL (Normal) Range: 65-99 :40 LIPID PANEL (03777) Comments: PATIENT WAS FASTINGPERFORMED BY: [employer] LabCoFounderSync70 [facility] [id number] LDL/HDL Ratio 0.9 {ratio} (Normal) Range: 0.0-3.2 Comments: LDL/HDL Ratio Men Women 1/2 Avg.Risk 1.0 1.5 Av g.Risk 3.6 3.2 2X Avg.Risk 6.2 5.0 3X Avg.Risk 8.0 6.1 LDL Cholesterol Calc 50 mg/dL (Normal) Range: 0-99 VLDL Cholesterol Pan 26 mg/dL (Normal) Range: 5-40 HDL Cholesterol 56 mg/dL (Normal) Triglycerides 131 mg/dL (Normal) Range: 0-149 Cholesterol, Total 132 mg/dL (Normal) Range: 100-199 :40 CBC W/AUTO DIFF WBC (33306) Comments: PATIENT WAS FASTINGPERFORMED BY: PuddleCoFounderSync70 [facility]At[facility] [id number] Immature Grans (Abs) 0.0 {x10E3/uL} (Normal) Range: 0.0-0.1 Immature Granulocytes 0 % (Normal) Baso (Absolute) 0.1 {x10E3/uL} (Normal) Range: 0.0-0.2 Eos (Absolute) 0.6 {x10E3/uL} (Abnormal) Range: 0.0-0.4 Monocytes(Absolute) 0.8 {x10E3/uL} (Normal) Range: 0.1-0.9 Lymphs (Absolute) 2.7 {x10E3/uL} (Normal) Range: 0.7-3.1 Neutrophils (Absolute) 6.6 {x10E3/uL} (Normal) Range: 1.4-7.0 Basos 1 % (Normal) Eos 6 % (Normal) Monocytes 8 % (Normal) Lymphs 25 % (Normal) Neutrophils 60 % (Normal) Platelets 428 {x10E3/uL} (Abnormal) Range: 150-379 RDW 13.8 % (Normal) Range: 12.3-15.4 MCHC 33.0 g/dL (Normal) Range: 31.5-35.7 MCH 28.7 pg (Normal) Range: 26.6-33.0 MCV 87 fL (Normal) Range: 79-97 Hematocrit 42.7 % (Normal) Range: 34.0-46.6 Hemoglobin 14.1 g/dL (Normal) Range: 11.1-15.9 RBC 4.92 {x10E6/uL} (Normal) Range: 3.77-5.28 WBC 10.8 {x10E3/uL} (Normal) Range: 3.4-10.8 03-Jul-20178:40 CALCIFIDIOL (04996) VIT D 25 Comments: PATIENT WAS FASTINGPERFORMED BY: LabCoSaint Barnabas Medical CenterWjjldz3505 [facility] [id number]; ov 07/09 Vitamin D, 25-Hydroxy 13.6 ng/mL (Abnormal) Range: 30.0-100.0 Comments: Vitamin D deficiency has been defined by the [place] ofMedicine and an Endocrine Society practice guideline as alevel of serum 25-OH vitamin D less than 20 ng/mL (1,2).The Endocrine Society went on to further define vitamin Dinsufficiency as a level between 21 and 29 ng/mL (2).1. IOM ([place] of Medicine). 2010. Dietary reference intakes for calcium and D. [place]: The National Academies Press.2. Alma Delia MF, Ru NC, Valery HARPER, et al. Evaluation, treatment, and prevention of vitamin D deficiency: an Endocrine Society clinical practice guideline. JCEM. 2010; 96(7):1911-30. :06 HgA1C , Office (64345) HgA1C , Office 6.4 % (Normal) Range: 4.6 - 7.1 :06 Blood Glucose , Office (34085) Blood Glucose , Office 235 (Normal) :39 Microscopic Examination Comments: PATIENT NOT FASTINGPERFORMED BY: [employer] [facility] [id number] Bacteria Moderate (Abnormal) Mucus Threads Present (Normal) Crystal Type Amorphous Sediment (Normal) Comments: Calcium Oxalate Crystals Present (Abnormal) Cast Type Hyaline casts (Normal) Casts Present {/lpf} (Abnormal) Epithelial Cells (non renal) >10 {/hpf} (Abnormal) Range: 0 - 10 RBC 3-10 {/hpf} (Abnormal) Range: 0 - 2 WBC >30 {/hpf} (Abnormal) Range: 0 - 5 :37 LIPID PANEL (83517) Comments: PATIENT WAS FASTINGPERFORMED BY: Rezora70 [facility] [id number] LDL/HDL Ratio 1.1 {ratio_units} (Normal) Range: 0.0-3.2 Comments: LDL/HDL Ratio Men Women 1/2 Avg.Risk 1.0 1.5 Av g.Risk 3.6 3.2 2X Avg.Risk 6.2 5.0 3X Avg.Risk 8.0 6.1 LDL Cholesterol Calc 51 mg/dL (Normal) Range: 0-99 VLDL Cholesterol Pan 21 mg/dL (Normal) Range: 5-40 HDL Cholesterol 46 mg/dL (Normal) Triglycerides 104 mg/dL (Normal) Range: 0-149 Cholesterol, Total 118 mg/dL (Normal) Range: 100-199 :37 HEPATIC FUNCTION PANEL Comments: PATIENT WAS FASTINGPERFORMED BY: [employer] [facility] [id number]; OV 12/29 (19218) ALT (SGPT) 7 [iU]/L (Normal) Range: 0-32 AST (SGOT) 12 [iU]/L (Normal) Range: 0-40 Alkaline Phosphatase, S 92 [iU]/L (Normal) Range: 39-117 Bilirubin, Direct 0.17 mg/dL (Normal) Range: 0.00-0.40 Bilirubin, Total 0.6 mg/dL (Normal) Range: 0.0-1.2 Albumin, Serum 4.1 g/dL (Normal) Range: 3.5-4.8 Protein, Total, Serum 7.4 g/dL (Normal) Range: 6.0-8.5 :35 HgA1C , Office (61411) HgA1C , Office 6.2 % (Normal) Range: 4.6 - 7.1 :35 Blood Glucose , Office (56336) Blood Glucose , Office 124 (Normal) :31 TSH (31511) Comments: PATIENT WAS FASTINGPERFORMED BY: [facility]otizenAt[facility] [id number] TSH 2.470 {uIU/mL} (Normal) Range: 0.450-4.500 :39 URINALYSIS, W/ MICRO (39167) Comments: PATIENT NOT FASTINGPERFORMED BY: [employer] [facility] [id number] Microscopic Examination See below: (Normal) Comments: Microscopic was indicated and was performed. Nitrite, Urine Negative (Normal) Urobilinogen,Semi-Qn 1.0 mg/dL (Normal) Range: 0.2-1.0 Bilirubin Negative (Normal) Occult Blood Negative (Normal) Ketones Trace (Abnormal) Glucose Negative (Normal) Protein 3+ (Abnormal) WBC Esterase 2+ (Abnormal) Appearance Cloudy (Abnormal) Urine-Color Yellow (Normal) pH 6.0 (Normal) Range: 5.0-7.5 Specific [place] >=1.030 (Abnormal) Range: 1.005-1.030 :39 MICROALBUMIN: CREATININE RATIO Comments: PATIENT NOT FASTINGPERFORMED BY: Free & Clear Lnjhdq0873 [employer] [facility] [id number] (42427) AND (26348) Microalb/Creat Ratio 162.3 {mg/g_creat} (Abnormal) Range: 0.0-30.0 Microalbumin, Urine 573.6 ug/mL (Normal) Comments: Results confirmed ondilution. Creatinine, Urine 353.4 mg/dL (Normal) 70-Dod-117175:31 METABOLIC PANEL, COMPREHENSIVE Comments: PATIENT WAS FASTINGPERFORMED BY: [employer]6370 [facility] [id number] (62596) ALT (SGPT) 8 [iU]/L (Normal) Range: 0-32 AST (SGOT) 14 [iU]/L (Normal) Range: 0-40 Alkaline Phosphatase, S 86 [iU]/L (Normal) Range: 39-117 Bilirubin, Total 0.4 mg/dL (Normal) Range: 0.0-1.2 A/G Ratio 1.1 (Abnormal) Range: 1.2-2.2 Globulin, Total 3.2 g/dL (Normal) Range: 1.5-4.5 Albumin, Serum 3.6 g/dL (Normal) Range: 3.5-4.8 Protein, Total, Serum 6.8 g/dL (Normal) Range: 6.0-8.5 Calcium, Serum 8.8 mg/dL (Normal) Range: 8.7-10.3 Carbon Dioxide, Total 25 mmol/L (Normal) Range: 18-29 Chloride, Serum 91 mmol/L (Abnormal) Range: 96-106 Potassium, Serum 4.1 mmol/L (Normal) Range: 3.5-5.2 Sodium, Serum 134 mmol/L (Normal) Range: 134-144 BUN/Creatinine Ratio 18 (Normal) Range: 12-28 eGFR If Africn Am 99 mL/min/1.73 (Normal) eGFR If NonAfricn Am 86 mL/min/1.73 (Normal) Creatinine, Serum 0.71 mg/dL (Normal) Range: 0.57-1.00 BUN 13 mg/dL (Normal) Range: 8-27 Glucose, Serum 68 mg/dL (Normal) Range: 65-99 63-Oxa-609431:31 CBC W/AUTO DIFF WBC (77160) Comments: PATIENT WAS FASTINGPERFORMED BY: [employer] LabCoGénie NumériqueZzeisr4612 [facility] [id number] Immature Grans (Abs) 0.0 {x10E3/uL} (Normal) Range: 0.0-0.1 Immature Granulocytes 0 % (Normal) Baso (Absolute) 0.1 {x10E3/uL} (Normal) Range: 0.0-0.2 Eos (Absolute) 0.6 {x10E3/uL} (Abnormal) Range: 0.0-0.4 Monocytes(Absolute) 0.8 {x10E3/uL} (Normal) Range: 0.1-0.9 Lymphs (Absolute) 1.9 {x10E3/uL} (Normal) Range: 0.7-3.1 Neutrophils (Absolute) 7.3 {x10E3/uL} (Abnormal) Range: 1.4-7.0 Basos 1 % (Normal) Eos 5 % (Normal) Monocytes 8 % (Normal) Lymphs 18 % (Normal) Neutrophils 68 % (Normal) Platelets 426 {x10E3/uL} (Abnormal) Range: 150-379 RDW 13.6 % (Normal) Range: 12.3-15.4 MCHC 33.3 g/dL (Normal) Range: 31.5-35.7 MCH 29.0 pg (Normal) Range: 26.6-33.0 MCV 87 fL (Normal) Range: 79-97 Hematocrit 41.2 % (Normal) Range: 34.0-46.6 Hemoglobin 13.7 g/dL (Normal) Range: 11.1-15.9 RBC 4.72 {x10E6/uL} (Normal) Range: 3.77-5.28 WBC 10.7 {x10E3/uL} (Normal) Range: 3.4-10.8 05-Iwn-054190:31 LIPID PANEL (83494) Comments: PATIENT WAS FASTINGPERFORMED BY: LabCoSaint Barnabas Medical CenterTzyuak7198 [facility] [id number] LDL/HDL Ratio 2.6 {ratio_units} (Normal) Range: 0.0-3.2 Comments: LDL/HDL Ratio Men Women 1/2 Avg.Risk 1.0 1.5 Av g.Risk 3.6 3.2 2X Avg.Risk 6.2 5.0 3X Avg.Risk 8.0 6.1 LDL Cholesterol Calc 108 mg/dL (Abnormal) Range: 0-99 VLDL Cholesterol Pan 28 mg/dL (Normal) Range: 5-40 HDL Cholesterol 42 mg/dL (Normal) Triglycerides 142 mg/dL (Normal) Range: 0-149 Cholesterol, Total 178 mg/dL (Normal) Range: 100-199 :31 BFFIN-QXWIVVIXBFX-QOLZS (69509) Comments: PATIENT WAS FASTINGPERFORMED BY: [employer] Lvrasm8379 [address] RoadDublin [place] [id number] AFP, Serum, Tumor Marker <0.7 ng/mL (Normal) Range: 0.0-8.3 Comments: Nadine ECLIA methodology :31 CALCIFIDIOL (86077) VIT D 25 Comments: PATIENT WAS FASTINGPERFORMED BY: [employer] Jnzndq4606 [address] RoadDublin [place] [id number] Vitamin D, 25-Hydroxy 20.5 ng/mL (Abnormal) Range: 30.0-100.0 Comments: Vitamin D deficiency has been defined by the [place] ofAv[facility] Health Systemcine and an Endocrine Society practice guideline as alevel of serum 25-OH vitamin D less than 20 ng/mL (1,2).The Endocrine Society went on to further define vitamin Dinsufficiency as a level between 21 and 29 ng/mL (2).1. IOM ([place] of Medicine). 2010. Dietary reference intakes for calcium and D. [place]: The National Academies Press.2. Alma Delia MF, Ru NC, Valery HARPER, et al. Evaluation, treatment, and prevention of vitamin D deficiency: an Endocrine Society clinical practice guideline. JCEM. 2010; 96(7):1911-30. :34 HgA1C , Office (92324) HgA1C , Office 6.2 % (Normal) Range: 4.6 - 7.1 :34 Blood Glucose , Office (28124) Blood Glucose , Office 147 (Normal) :02 HgA1C , Office (90828) HgA1C , Office 6.4 % (Normal) Range: 4.6 - 7.1 :07 EKDKT-YLVYYGEKBKC-ZKHCE (65792) Comments: PATIENT WAS FASTINGPERFORMED BY: [employer] Labfundfindrrp Dnilpo6715 [address] RoadDublin [place] [id number] AFP, Serum, Tumor Marker 1.0 ng/mL (Normal) Range: 0.0-8.3 Comments: Nadine ECLIA methodology :07 MICROALBUMIN: CREATININE RATIO Comments: PATIENT WAS FASTINGPERFORMED BY: [employer] Juogdu8141 [facility] [id number] (87062) AND (26124) Microalb/Creat Ratio 454.4 {mg/g_creat} (Abnormal) Range: 0.0-30.0 Microalbumin, Urine 500.8 ug/mL (Normal) Comments: Results confirmed ondilution. Creatinine, Urine 110.2 mg/dL (Normal) :07 VITAMIN B12 AND FOLATES Comments: PATIENT WAS FASTINGPERFORMED BY: [employer] Srbggt3101 [facility] [id number] (57510) Folate (Folic Acid), Serum 12.7 ng/mL (Normal) Comments: A serum folate concentration of less than 3.1 ng/mL isconsidered to represent clinical deficiency. Vitamin B12 407 pg/mL (Normal) Range: 211-946 :07 CALCIFEDIOL (64454) Comments: PATIENT WAS FASTINGPERFORMED BY: [employer]6370 [facility] [id number] Vitamin D, 25-Hydroxy 15.3 ng/mL (Abnormal) Range: 30.0-100.0 Comments: Vitamin D deficiency has been defined by the [place] ofMedicine and an Endocrine Society practice guideline as alevel of serum 25-OH vitamin D less than 20 ng/mL (1,2).The Endocrine Society went on to further define vitamin Dinsufficiency as a level between 21 and 29 ng/mL (2).1. IOM ([place] of Medicine). 2010. Dietary reference intakes for calcium and D. [place]: The National Academies Press.2. Alma Delia MF, Ru NC, Valery HARPER, et al. Evaluation, treatment, and prevention of vitamin D deficiency: an Endocrine Society clinical practice guideline. JCEM. 2010; 96(7):1911-30. :07 TSH (THYROID STIMULATING Comments: PATIENT WAS FASTINGPERFORMED BY: [facility]6370 [facility] [id number] HORMONE) (42265) TSH 2.280 {uIU/mL} (Normal) Range: 0.450-4.500 :07 LIPID PANEL (04042) Comments: PATIENT WAS FASTINGPERFORMED BY: [facility]6370 [facility] [id number] LDL/HDL Ratio 2.4 {ratio_units} (Normal) Range: 0.0-3.2 Comments: LDL/HDL Ratio Men Women 1/2 Avg.Risk 1.0 1.5 Av g.Risk 3.6 3.2 2X Avg.Risk 6.2 5.0 3X Avg.Risk 8.0 6.1 LDL Cholesterol Calc 115 mg/dL (Abnormal) Range: 0-99 VLDL Cholesterol Pan 28 mg/dL (Normal) Range: 5-40 HDL Cholesterol 48 mg/dL (Normal) Triglycerides 140 mg/dL (Normal) Range: 0-149 Cholesterol, Total 191 mg/dL (Normal) Range: 100-199 8-Suw-051601:07 METABOLIC PANEL, COMPREHENSIVE Comments: PATIENT WAS FASTINGPERFORMED BY: [facility]6370 [facility] [id number] (74706) ALT (SGPT) 7 [iU]/L (Normal) Range: 0-32 AST (SGOT) 17 [iU]/L (Normal) Range: 0-40 Alkaline Phosphatase, S 100 [iU]/L (Normal) Range: 39-117 Bilirubin, Total 0.6 mg/dL (Normal) Range: 0.0-1.2 A/G Ratio 1.2 (Normal) Range: 1.1-2.5 Globulin, Total 3.5 g/dL (Normal) Range: 1.5-4.5 Albumin, Serum 4.3 g/dL (Normal) Range: 3.5-4.8 Protein, Total, Serum 7.8 g/dL (Normal) Range: 6.0-8.5 Calcium, Serum 9.4 mg/dL (Normal) Range: 8.7-10.3 Carbon Dioxide, Total 30 mmol/L (Abnormal) Range: 18-29 Chloride, Serum 91 mmol/L (Abnormal) Range: 97-106 Comments: Effective March 13, 2016 the reference interval for Chloride, Serum will be changing to: 96 - 106 Potassium, Serum 4.5 mmol/L (Normal) Range: 3.5-5.2 Sodium, Serum 137 mmol/L (Normal) Range: 136-144 Comments: Effective March 13, 2016 the reference interval for Sodium, Serum will be changing to: 134 - 144 BUN/Creatinine Ratio 9 (Abnormal) Range: 11-26 eGFR If Africn Am 80 mL/min/1.73 (Normal) eGFR If NonAfricn Am 69 mL/min/1.73 (Normal) Creatinine, Serum 0.85 mg/dL (Normal) Range: 0.57-1.00 BUN 8 mg/dL (Normal) Range: 8-27 Glucose, Serum 102 mg/dL (Abnormal) Range: 65-99 3-Puq-891643:07 CBC, PLATELETS & AUT DIFF Comments: PATIENT WAS FASTINGPERFORMED BY: LabCoSaint Barnabas Medical CenterSgypnd8671 [facility] [id number] (11380) Immature Grans (Abs) 0.0 {x10E3/uL} (Normal) Range: 0.0-0.1 Immature Granulocytes 0 % (Normal) Baso (Absolute) 0.1 {x10E3/uL} (Normal) Range: 0.0-0.2 Eos (Absolute) 0.7 {x10E3/uL} (Abnormal) Range: 0.0-0.4 Monocytes(Absolute) 0.9 {x10E3/uL} (Normal) Range: 0.1-0.9 Lymphs (Absolute) 1.9 {x10E3/uL} (Normal) Range: 0.7-3.1 Neutrophils (Absolute) 5.8 {x10E3/uL} (Normal) Range: 1.4-7.0 Basos 1 % (Normal) Eos 7 % (Normal) Monocytes 10 % (Normal) Lymphs 21 % (Normal) Neutrophils 61 % (Normal) Platelets 431 {x10E3/uL} (Abnormal) Range: 150-379 RDW 13.6 % (Normal) Range: 12.3-15.4 MCHC 33.7 g/dL (Normal) Range: 31.5-35.7 MCH 28.7 pg (Normal) Range: 26.6-33.0 MCV 85 fL (Normal) Range: 79-97 Hematocrit 41.6 % (Normal) Range: 34.0-46.6 Hemoglobin 14.0 g/dL (Normal) Range: 11.1-15.9 RBC 4.88 {x10E6/uL} (Normal) Range: 3.77-5.28 WBC 9.4 {x10E3/uL} (Normal) Range: 3.4-10.8 :24 HgA1C , Office (12583) HgA1C , Office 6.0 % (Normal) Range: 4.6 - 7.1 :24 Blood Glucose , Office (04854) Blood Glucose , Office 125 (Normal) :38 HEPATITIS PANEL (69113) Comments: PATIENT WAS FASTINGPERFORMED BY: [employer] [facility] [id number] Hep C Virus Ab 0.2 {s/co_ratio} (Normal) Range: 0.0-0.9 Comments: Negative: < 0.8 Indeterminate: 0.8 - 0.9 Positive: > 0.9 . The CDC recommends that a positive HCV antibody result be followed up with a HCV Nucleic Acid Amplification test (596059). Hep B Core Ab, IgM Negative (Normal) HBsAg Screen Negative (Normal) Hep A Ab, IgM Negative (Normal) :38 GIRGI-NNBDIIOBVTG-HZWWM (53141) Comments: PATIENT WAS FASTINGPERFORMED BY: Rezora70 [facility] [id number] AFP, Serum, Tumor Marker 0.9 ng/mL (Normal) Range: 0.0-8.3 Comments: Nadine ECLIA methodology :38 HEPATIC FUNCTION PANEL Comments: PATIENT WAS FASTINGPERFORMED BY: [employer] [facility] [id number] Information: [id number] DL (21857) ALT (SGPT) 7 [iU]/L (Normal) Range: 0-32 AST (SGOT) 14 [iU]/L (Normal) Range: 0-40 Alkaline Phosphatase, S 113 [iU]/L (Normal) Range: 39-117 Bilirubin, Direct 0.10 mg/dL (Normal) Range: 0.00-0.40 Bilirubin, Total 0.4 mg/dL (Normal) Range: 0.0-1.2 Albumin, Serum 4.1 g/dL (Normal) Range: 3.5-4.8 Protein, Total, Serum 7.5 g/dL (Normal) Range: 6.0-8.5 [id number] CBC W/AUTO DIFF WBC Comments: PATIENT WAS FASTINGPERFORMED BY: LabCoSaint [facility] Medical [id number] [facility] [id number] Information: [id number] ([id number]) Immature Grans (Abs) 0.0 {x10E3/uL} (Normal) Range: 0.0-0.1 Immature Granulocytes 0 % (Normal) Baso (Absolute) 0.1 {x10E3/uL} (Normal) Range: 0.0-0.2 Eos (Absolute) 0.7 {x10E3/uL} (Abnormal) Range: 0.0-0.4 Monocytes(Absolute) 0.9 {x10E3/uL} (Normal) Range: 0.1-0.9 Lymphs (Absolute) 1.6 {x10E3/uL} (Normal) Range: 0.7-3.1 Neutrophils (Absolute) 6.3 {x10E3/uL} (Normal) Range: 1.4-7.0 Basos 1 % (Normal) Eos 8 % (Normal) Monocytes 9 % (Normal) Lymphs 17 % (Normal) Neutrophils 65 % (Normal) Platelets 387 {x10E3/uL} (Abnormal) Range: 150-379 RDW 13.9 % (Normal) Range: 12.3-15.4 MCHC 33.4 g/dL (Normal) Range: 31.5-35.7 MCH 28.6 pg (Normal) Range: 26.6-33.0 MCV 86 fL (Normal) Range: 79-97 Hematocrit 39.5 % (Normal) Range: 34.0-46.6 Hemoglobin 13.2 g/dL (Normal) Range: 11.1-15.9 RBC 4.61 {x10E6/uL} (Normal) Range: 3.77-5.28 WBC 9.5 {x10E3/uL} (Normal) Range: 3.4-10.8 5-Kqb-098382:00 MICROALBUMIN: CREATININE RATIO Comments: PATIENT WAS FASTINGPERFORMED BY: [employer] Xolsso4416 [facility] [id number] ([id number]) AND (65643) Microalb/Creat Ratio 206.7 {mg/g_creat} (Abnormal) Range: 0.0-30.0 Comments: ADDENDA: apt today Microalbumin, Urine 46.1 ug/mL (Normal) Creatinine, Urine 22.3 mg/dL (Normal) :00 METABOLIC PANEL, COMPREHENSIVE Comments: PATIENT WAS FASTINGPERFORMED BY: [employer]6[address] [facility] ClareAkampusAt[facility] [id number] (24771) ALT (SGPT) 6 [iU]/L (Normal) Range: 0-32 AST (SGOT) 14 [iU]/L (Normal) Range: 0-40 Alkaline Phosphatase, S 95 [iU]/L (Normal) Range: 39-117 Bilirubin, Total 0.5 mg/dL (Normal) Range: 0.0-1.2 A/G Ratio 1.1 (Normal) Range: 1.1-2.5 Globulin, Total 3.4 g/dL (Normal) Range: 1.5-4.5 Albumin, Serum 3.9 g/dL (Normal) Range: 3.5-4.8 Protein, Total, Serum 7.3 g/dL (Normal) Range: 6.0-8.5 Calcium, Serum 9.2 mg/dL (Normal) Range: 8.7-10.3 Carbon Dioxide, Total 24 mmol/L (Normal) Range: 18-29 Chloride, Serum 92 mmol/L (Abnormal) Range: 97-108 Potassium, Serum 4.5 mmol/L (Normal) Range: 3.5-5.2 Sodium, Serum 134 mmol/L (Normal) Range: 134-144 BUN/Creatinine Ratio 15 (Normal) Range: 11-26 eGFR If Africn Am 103 mL/min/1.73 (Normal) eGFR If NonAfricn Am 89 mL/min/1.73 (Normal) Creatinine, Serum 0.67 mg/dL (Normal) Range: 0.57-1.00 BUN 10 mg/dL (Normal) Range: 8-27 Glucose, Serum 98 mg/dL (Normal) Range: 65-99 3-Mca-525328:00 LIPID PANEL (94485) Comments: PATIENT WAS FASTINGPERFORMED BY: [facility]Script[facility] AmericaSaint Barnabas Medical CenterZcltxw6378 [facility] [id number] LDL/HDL Ratio 2.6 {ratio_units} (Normal) Range: 0.0-3.2 Comments: LDL/HDL Ratio Men Women 1/2 Avg.Risk 1.0 1.5 Av g.Risk 3.6 3.2 2X Avg.Risk 6.2 5.0 3X Avg.Risk 8.0 6.1 LDL Cholesterol Calc 122 mg/dL (Abnormal) Range: 0-99 VLDL Cholesterol Pan 23 mg/dL (Normal) Range: 5-40 HDL Cholesterol 47 mg/dL (Normal) Comments: According to ATP-III Guidelines, HDL-C >59 mg/dL is considered anegative risk factor for CHD. Triglycerides 114 mg/dL (Normal) Range: 0-149 Cholesterol, Total 192 mg/dL (Normal) Range: 100-199 40-Jya-552937:01 Serum Creatinine AND GFR Comments: [facility] Eykitwxxze5170 [facility]. [place], [place], [id number] EST GFR - AA 76 mL/min (Normal) Comments: GFR Calc EST GFR 63 mL/min (Normal) Comments: Non- GFR Calc CREAT,SERUM 0.93 mg/dL (Normal) Range: 0.55-1.20 Comments: The validity of the calculated GFR AND GFRAA in patients over70 years has not been determined. Clinical correlation isessential. 18-Lrv-584892:22 HgA1C , Office (99392) HgA1C , Office 6.9 % (Normal) Range: 4.6 - 7.1 :47 Blood Glucose , Office (29217) Blood Glucose , Office 284 (Normal) :47 HgA1C , Office (00130) HgA1C , Office 7.1 % (Normal) Range: 4.6 - 7.1 50-Oom-018848:18 Microscopic Examination Comments: PATIENT NOT FASTINGPERFORMED BY: [facility]6370 [facility] [id number] Bacteria Moderate (Abnormal) Mucus Threads Present (Normal) Crystal Type Amorphous Sediment (Normal) Crystals Present (Abnormal) Epithelial Cells (non renal) >10 {/hpf} (Abnormal) Range: 0 - 10 RBC 0-2 {/hpf} (Normal) Range: 0 - 2 WBC 6-10 {/hpf} (Abnormal) Range: 0 - 5 :18 URINALYSIS, W/ MICRO (66385) Comments: PATIENT NOT FASTINGPERFORMED BY: [address] [id number] Microscopic Examination See below: (Normal) Comments: Microscopic was indicated and was performed. Nitrite, Urine Negative (Normal) Urobilinogen,Semi-Qn 0.2 mg/dL (Normal) Range: 0.0-1.9 Bilirubin Negative (Normal) Occult Blood Negative (Normal) Ketones Negative (Normal) Glucose Negative (Normal) Protein 2+ (Abnormal) WBC Esterase 2+ (Abnormal) Appearance Cloudy (Abnormal) Urine-Color Yellow (Normal) pH 7.0 (Normal) Range: 5.0-7.5 Specific [place] 1.014 (Normal) Range: 1.005-1.030 10-Igg-742408:18 PTT (Activated Partial Comments: PATIENT NOT FASTINGPERFORMED BY: [place] [id number] [facility] [id number] Thromboplastin Time) (27688) aPTT 28 {sec} (Normal) Range: 24-33 Comments: This test has not been validated for monitoring unfractionated heparintherapy. aPTT-based therapeutic ranges for unfractionated heparintherapy have not been established. For general guidelines onHeparin monitoring, refer to the [facility] Directory of Services. 83-Aup-964022:18 PT (Prothrobim Time) (64913) Comments: PATIENT NOT FASTINGPERFORMED BY: [place] [id number] [facility] [id number] Prothrombin Time 10.3 {sec} (Normal) Range: 9.1-12.0 INR 1.0 (Normal) Range: 0.8-1.2 Comments: Reference interval is for non-anticoagulated patients. . Suggested INR therapeutic range for Vitamin K anta gonist therapy: Standard Dose (moderate intensity therapeutic range): 2.0 - 3.0 Higher intensity therapeutic range 2.5 - 3.5 54-Hkj-123357:18 MICROALBUMIN: CREATININE RATIO Comments: PATIENT NOT FASTINGPERFORMED BY: [facility]6370 [facility] [id number] (36941) AND (33146) Microalb/Creat Ratio 434.0 {mg/g_creat} (Abnormal) Range: 0.0-30.0 Microalbumin, Urine 427.5 ug/mL (Abnormal) Range: 0.0-17.0 Comments: Results confirmed ondilution. Creatinine, Urine 98.5 mg/dL (Normal) Range: 15.0-278.0 34-Sdw-426958:18 CBC with auto diff Comments: PATIENT NOT FASTINGPERFORMED BY: [facility]Script[facility] AmericaSaint Barnabas Medical CenterFpnrkj1751 [facility] [id number] Information: [id number] (52716) Immature Grans (Abs) 0.0 {x10E3/uL} (Normal) Range: 0.0-0.1 Immature Granulocytes 0 % (Normal) Baso (Absolute) 0.1 {x10E3/uL} (Normal) Range: 0.0-0.2 Eos (Absolute) 0.4 {x10E3/uL} (Normal) Range: 0.0-0.4 Monocytes(Absolute) 0.8 {x10E3/uL} (Normal) Range: 0.1-0.9 Lymphs (Absolute) 1.5 {x10E3/uL} (Normal) Range: 0.7-3.1 Neutrophils (Absolute) 5.6 {x10E3/uL} (Normal) Range: 1.4-7.0 Basos 1 % (Normal) Eos 5 % (Normal) Monocytes 10 % (Normal) Lymphs 17 % (Normal) Neutrophils 67 % (Normal) Platelets 355 {x10E3/uL} (Normal) Range: 150-379 RDW 13.3 % (Normal) Range: 12.3-15.4 MCHC 34.0 g/dL (Normal) Range: 31.5-35.7 MCH 29.3 pg (Normal) Range: 26.6-33.0 MCV 86 fL (Normal) Range: 79-97 Hematocrit 44.1 % (Normal) Range: 34.0-46.6 Hemoglobin 15.0 g/dL (Normal) Range: 11.1-15.9 RBC 5.12 {x10E6/uL} (Normal) Range: 3.77-5.28 WBC 8.4 {x10E3/uL} (Normal) Range: 3.4-10.8 :18 METABOLIC PANEL, COMPREHENSIVE Comments: PATIENT NOT FASTINGPERFORMED BY: LabCoSaint Barnabas Medical CenterFfrter9770 [facility] [id number] (07988) ALT (SGPT) 9 [iU]/L (Normal) Range: 0-32 AST (SGOT) 15 [iU]/L (Normal) Range: 0-40 Alkaline Phosphatase, S 97 [iU]/L (Normal) Range: 39-117 Bilirubin, Total 0.7 mg/dL (Normal) Range: 0.0-1.2 A/G Ratio 1.2 (Normal) Range: 1.1-2.5 Globulin, Total 3.4 g/dL (Normal) Range: 1.5-4.5 Albumin, Serum 4.1 g/dL (Normal) Range: 3.6-4.8 Protein, Total, Serum 7.5 g/dL (Normal) Range: 6.0-8.5 Calcium, Serum 9.6 mg/dL (Normal) Range: 8.7-10.3 Carbon Dioxide, Total 26 mmol/L (Normal) Range: 18-29 Chloride, Serum 91 mmol/L (Abnormal) Range: 97-108 Potassium, Serum 4.6 mmol/L (Normal) Range: 3.5-5.2 Sodium, Serum 135 mmol/L (Normal) Range: 134-144 BUN/Creatinine Ratio 14 (Normal) Range: 11-26 eGFR If Africn Am 80 mL/min/1.73 (Normal) eGFR If NonAfricn Am 69 mL/min/1.73 (Normal) Creatinine, Serum 0.86 mg/dL (Normal) Range: 0.57-1.00 BUN 12 mg/dL (Normal) Range: 8-27 Glucose, Serum 100 mg/dL (Abnormal) Range: 65-99 89-Ffi-269588:18 LIPID PANEL (12408) Comments: PATIENT NOT FASTINGPERFORMED BY: LabCoSaint Barnabas Medical CenterKkzjpq6332 [facility] [id number] LDL/HDL Ratio 2.6 {ratio_units} (Normal) Range: 0.0-3.2 Comments: LDL/HDL Ratio Men Women 1/2 Avg.Risk 1.0 1.5 Av g.Risk 3.6 3.2 2X Avg.Risk 6.2 5.0 3X Avg.Risk 8.0 6.1 LDL Cholesterol Calc 115 mg/dL (Abnormal) Range: 0-99 VLDL Cholesterol Pan 39 mg/dL (Normal) Range: 5-40 HDL Cholesterol 45 mg/dL (Normal) Comments: According to ATP-III Guidelines, HDL-C >59 mg/dL is considered anegative risk factor for CHD. Triglycerides 195 mg/dL (Abnormal) Range: 0-149 Cholesterol, Total 199 mg/dL (Normal) Range: 100-199 29-Smw-834907:39 HgA1C , Office (70958) HgA1C , Office 7.6 % (Abnormal) Range: 4.6 - 7.1 20-Slo-503321:46 Metabolic Panel, Basic Comments: PATIENT NOT FASTINGPERFORMED BY: [facility] Dwnfdq0017 [facility] [id number] Information: [id number] (47699) Calcium, Serum 9.8 mg/dL (Normal) Range: 8.6-10.2 Carbon Dioxide, Total 26 mmol/L (Normal) Range: 18-29 Chloride, Serum 89 mmol/L (Abnormal) Range: 97-108 Potassium, Serum 4.5 mmol/L (Normal) Range: 3.5-5.2 Sodium, Serum 135 mmol/L (Normal) Range: 134-144 BUN/Creatinine Ratio 15 (Normal) Range: 11-26 eGFR If Africn Am 89 mL/min/1.73 (Normal) eGFR If NonAfricn Am 77 mL/min/1.73 (Normal) Creatinine, Serum 0.79 mg/dL (Normal) Range: 0.57-1.00 BUN 12 mg/dL (Normal) Range: 8-27 Glucose, Serum 168 mg/dL (Abnormal) Range: 65-99 39-Oec-461349:03 HgA1C , Office (44208) HgA1C , Office 8.9 % (Abnormal) Range: 4.6 - 7.1 41-Bzn-397751:08 TSH (57010) Comments: PATIENT NOT FASTINGPERFORMED BY: [facility]6370 [facility] [id number] TSH 2.650 {uIU/mL} (Normal) Range: 0.450-4.500 56-Gpj-393915:08 METABOLIC PANEL, Comments: PATIENT NOT FASTINGPERFORMED BY: LabCoSaint Barnabas Medical CenterNtcnlt9035 [facility] [id number] Information: [id number] [facility] (20638) ALT (SGPT) 11 [iU]/L (Normal) Range: 0-32 AST (SGOT) 20 [iU]/L (Normal) Range: 0-40 Alkaline Phosphatase, S 107 [iU]/L (Normal) Range: 39-117 Bilirubin, Total 0.4 mg/dL (Normal) Range: 0.0-1.2 A/G Ratio 1.3 (Normal) Range: 1.1-2.5 Globulin, Total 3.5 g/dL (Normal) Range: 1.5-4.5 Albumin, Serum 4.5 g/dL (Normal) Range: 3.6-4.8 Protein, Total, Serum 8.0 g/dL (Normal) Range: 6.0-8.5 Calcium, Serum 9.7 mg/dL (Normal) Range: 8.6-10.2 Carbon Dioxide, Total 25 mmol/L (Normal) Range: 19-28 Chloride, Serum 89 mmol/L (Abnormal) Range: 97-108 Potassium, Serum 4.3 mmol/L (Normal) Range: 3.5-5.2 Sodium, Serum 132 mmol/L (Abnormal) Range: 134-144 BUN/Creatinine Ratio 14 (Normal) Range: 11-26 eGFR If Africn Am 81 mL/min/1.73 (Normal) eGFR If NonAfricn Am 71 mL/min/1.73 (Normal) Creatinine, Serum 0.85 mg/dL (Normal) Range: 0.57-1.00 BUN 12 mg/dL (Normal) Range: 8-27 Glucose, Serum 191 mg/dL (Abnormal) Range: 65-99 8-Nzp-946078:03 BMP CO2 29.0 mmol/L (Normal) Range: 21.0-32.0 GAP 8 (Normal) Range: 5-15 CL 91 mmol/L (Abnormal) Range: 98-107 K 3.9 mmol/L (Normal) Range: 3.5-5.1 NA 128 mmol/L (Abnormal) Range: 136-145 BC 11.0 {RATIO} (Normal) Range: 10-20 CA 9.0 mg/dL (Normal) Range: 8.5-10.1 GFR 59 mL/min (Abnormal) GFRAA 72 mL/min (Normal) CREAT 1.0 mg/dL (Normal) Range: 0.6-1.0 BUN 11 mg/dL (Normal) Range: 7-18 GLU 375 mg/dL (Abnormal) Range: 70-110 Comments: Glucose result greater than or equal to 200 mg/dLsuggests DIABETES MELLITUS per A.D.A. criteria. :03 CBCD ANC 5.3 {X10_3/uL} (Normal) Range: 2.0-7.7 IG% 0.200 % (Normal) Range: 0.0-0.9 Comments: IG% - Immature Granulocytes (promyelocytes, myelocytes andmetamyelocytes) > 1% indicates that a LEFT SHIFT is Present. B% 0.8 % (Normal) Range: 0-1 E% 4.2 % (Normal) Range: 0-5 M% 10.1 % (Abnormal) Range: 0-10 L% 22.6 % (Normal) Range: 19-41 N% 62.1 % (Normal) Range: 47-70 MPV 9.4 fL (Normal) Range: 6.2-12.0 PLT 343 K/mm3 (Normal) Range: 150-450 RDWSD 38.4 fL (Normal) Range: 35.1-43.9 RDWCV 12.6 % (Normal) Range: 11.6-14.6 MCHC 35.1 {g/gl} (Normal) Range: 32-36 MCH 29.5 pg (Normal) Range: 27.0-32.0 MCV 84.0 fL (Normal) Range: 81-99 HCT 39.9 % (Normal) Range: 37-47 HGB 14.0 g/dL (Normal) Range: 12.0-15.0 RBC 4.75 {M/mm3} (Normal) Range: 4.2-5.4 WBC 8.5 K/mm3 (Normal) Range: 4.4-11.0 :03 TROP 0.03 ng/mL (Normal) Comments: 'TROP' Serial specimen #1, #2, #3, or #4: 1 Comments: TROPONIN-I EXPECTED VALUES <0.05 NEGATIVE0.06 - 0.59 AT RISK OF DC> OR = 0.60 SUGGEST DC :25 HgA1C , Office (86993) HgA1C , Office 7.7 % (Abnormal) Range: 4.6 - 7.1 :02 HgA1C , Office (08722) HgA1C , Office 7.8 % (Abnormal) Range: 4.6 - 7.1 :58 KNEE 4 OR MORE VIEWS Radiology See Note Comments: STUDY: X-RAY - LEFT KNEE REASON FOR EXAM: Female, 66 years old. Pain. TECHNIQUE: 5 views of the knee. COMPARISON: None. FINDINGS:Normal visualized distal femu Report (Normal) r. Normal visualized proximal tibia andfibula. Normal proximal tibiofibular articulation. There is mild degenerative arthrosis of the medial femorotibialcompartment. Normal lateral femorotibial josé rtment. There is milddegenerative arthrosis of the patellofemoral articulation. The soft tissue structures are unremarkable. IMPRESSION:Degenerative arthrosis. Signed :Matt Cortes M.D.December 04, 2012 at 3:28:15 PM [id number] Signed GP/GP If you are the referring physician and would like to consult with theradiologist who provided this int erpretation, please contact Brian Myles at [phone]. If this radiologist is unavailable, youwill be directed to another radiologist to assist. If you are a patient with a question regard ing this report, pleasecontactyour referring physician directly. Professional Interpretation Provided By: [employer], Phone , These documents contain legally protected and confidential healthinformation intended only for the use of the individual or entity namedabove. If you are not the intended recipient, you are hereby notifiedthatany disclosure, copying, distribution, or other use of these documents isstrictly prohibited. If you have received this information in error,pleasenotify the sender immediately and arrange for the return or destructionofthese documents. Dictated on 12/04/12 1528 by Sophia ROD,Ellisranscribed on 12/04/12 1531 by ITS IMPORTSign by Matt Cortes MD on 12/04/12 1532 Sign by: Matt Cortes MD 05-Rmp-346542:47 BILAT SCRN DIGITAL & CAD Radiology Report See Note Comments: MAMMOGRAPHY - BILATERAL SCREENING REASON FOR EXAM: Female, 66 years old. Routine annual screeningexamination. PERTINENT HISTORY: Non-contributory. TECHNIQUE: Digital examination. Med iolateral ob (Normal) lique (MLO) andcraniocaudad (CC) views of both breasts were obtained. CAD: CAD wasperformed on this study. COMPARISON: 07/10/11 FINDINGS:The breast composition is co mp osed of scattered fibroglandular tissuesranging from 25% to 50% of the breast. There are no dominant masses or suspicious calcifications. Benigncalcifications bilaterally are unchanged. IMPRESSION:Stable bilateral screening mammogram. Yearly follow-up recommended. (A) ASSESSMENT CATEGORY:BIRADS Category 2: Benign finding(s). A letter regarding these resultswill be sent to the patient by the facility within 30 days. Approximately 10% of breast cancers are not detected by mammography. Anormal mammogram should not delay biops y of a clinically suspiciousabnormality. Signed:Sharath Grimm M.D.September 19, 2012 at 5:00:16 PM [id number] Signed RU/RU If you are the referring physician and would like to consult w [facility] theradiologist who provided this interpretation, please contact Brian Fairbanks at [phone]. If this radiologist is unavailable, youwillbe directed to another radiologist to assist. If you are a patient with a question regarding this report, pleasecontactyour referring physician directly. Professional Interpretation Provided By: [employer], Phone , These doc uments contain legally protected and confidential healthinformation intended only for the use of the individual or entity namedabove. If you are not the intended recipient, you are hereby notifiedthatan y disclosure, copying, distribution, or other use of these documents isstrictly prohibited. If you have received this information in error,pleasenotify the sender immediately and arrange for the return or destructionofthese documents. Dictated on 09/19/12 1700 by Sharath GrimmTranscribed on 09/19/122024 by ITS IMPORTSign by Sharath Grimm on 09/19/122026 Sign by: Sharath Grimm :16 HgA1C , Office (69051) HgA1C , Office 7.5 % (Abnormal) Range: 4.6 - 7.1 :13 ABDOMEN/PELVIS WITH CONTRAST Radiology Report See Note (Normal) Comments: PROCEDURE: CT ABDOMEN AND PELVIS WITH CONTRAST REASON FOR EXAM: Female, 66 years old. Abdominal pain and left flankpain. The patient has a history of colon cancer. RADIATION DOSAGE (If Supplied By Facility): CTDIvol = ( 18.84 ) mGy, DLP=( 1784.53 ) mGycm TECHNIQUE: Transaxial images were obtained from the dome of thediaphragmto the symphysis pubis without oral contrast. 100ml ml of Isovue 300 contrast was administered. Multiplanar coronal and sagittal images werereformatted. Delayed imaging was obtained as well. COMPARISON: Comparison is made with prior study dated May 04, 2012. FINDI NGS:There is mild degree of atelectasis involving the right middle lobe andlingular segment of the left upper lobe. This evidence of coronaryarterycalcifications. Normal liver. There are surgical cli ps in the gallbladder fossaconsistentwith a prior cholecystectomy. There are multiple benign calcifiedgranulomata of the spleen. Normal pancreas. Normal bilateral adrenal glands. Normal right kidney. There is mild degree of right perinephric stranding.Normal left kidney. Normal visualized stomach. Normal small intestine. There are multiplecolonic diverticula consistent with diverticulosis. The ap pendix isvisualized and appears normal. There is diffuse atherosclerotic calcification of the abdominal aorta,without a demonstrated aneurysm. Normal inferior vena cava. Normalretroperitoneum. Normal urinary bladder. There is a moderate sized ventral hernia just distal to the umbilicuscontaining fat. There are diffuse degenerative changes of the visualizedlumbar spine. IMPRESSION:Abdominal wall her migdalia.There has been essentially no change since prior examination. Signed:Matt Cortes M.D.May 08, 2012 at 4:23:24 PM [id number] Signed GP/GP If you are the referring physic vale and would like to consult with theradiologist who provided this interpretation, please contact Brian Myles at [phone]. If this radiologist is unavailable, youwill be directed to ano ther radiologist to assist. If you are a patient with a question regarding this report, pleasecontactyour referring physician directly. Professional Interpretation Provided By: [employer], Phone , These documents contain legally protected and confidential healthinformation intended only for the use of the individual or entity namedabove. If you are not the intended recip ient, you are hereby notifiedthatany disclosure, copying, distribution, or other use of these documents isstrictly prohibited. If you have received this information in error,pleasenotify the sender imme diately and arrange for the return or destructionofthese documents. Dictated on 05/08/12 1536 by Sophia ROD,HebertrieleTranscribed on 05/08/12 1627 by ITS IMPORTSign by Sophia ROD,Matt on 05/08 1628 Sign by: Matt Cortes MD 6-Qni-978347:19 C-REACTIVE PROTEIN (07910) Comments: stat; PATIENT NOT FASTINGPERFORMED BY: CB [facility] [id number] [facility] [id number] C-Reactive Protein, Quant 14.5 mg/L (Abnormal) Range: 0.0-4.9 2-Hil-044043:19 SED RATE ERYTHROCYTE (96372) Comments: stat; PATIENT NOT FASTINGPERFORMED BY: CB [facility] Dcrprm7576 [facility] [id number] Sedimentation Rate-Westergren 22 mm/h (Normal) Range: 0-40 5-Cvp-523898:19 CBC WITH MANUAL DIFF Comments: stat; PATIENT NOT FASTINGPERFORMED BY: [facility] Msbirz0945 [facility] [id number] Information: ADD [id number] AND DRAW FEE 99 9839 (73104) Immature Grans (Abs) 0.0 {x10E3/uL} (Normal) Range: 0.0-0.1 Immature Granulocytes 0 % (Normal) Range: 0-2 Baso (Absolute) 0.1 {x10E3/uL} (Normal) Range: 0.0-0.2 Eos (Absolute) 0.3 {x10E3/uL} (Normal) Range: 0.0-0.4 Monocytes(Absolute) 1.7 {x10E3/uL} (Abnormal) Range: 0.1-1.0 Lymphs (Absolute) 2.1 {x10E3/uL} (Normal) Range: 0.7-4.5 Neutrophils (Absolute) 10.8 {x10E3/uL} (Abnormal) Range: 1.8-7.8 Basos 1 % (Normal) Range: 0-3 Eos 2 % (Normal) Range: 0-7 Lymphs 14 % (Normal) Range: 14-46 Monocytes 11 % (Normal) Range: 4-13 Neutrophils 72 % (Normal) Range: 40-74 Platelets 316 {x10E3/uL} (Normal) Range: 140-415 RDW 13.4 % (Normal) Range: 12.3-15.4 MCHC 34.6 g/dL (Normal) Range: 31.5-35.7 MCH 29.2 pg (Normal) Range: 26.6-33.0 MCV 84 fL (Normal) Range: 79-97 Hematocrit 39.0 % (Normal) Range: 34.0-46.6 Hemoglobin 13.5 g/dL (Normal) Range: 11.1-15.9 RBC 4.63 {x10E6/uL} (Normal) Range: 3.77-5.28 WBC 14.9 {x10E3/uL} (Abnormal) Range: 4.0-10.5 3-Loi-244319:19 METABOLIC PANEL, COMPREHENSIVE Comments: PATIENT NOT FASTINGPERFORMED BY: [facility] Qmnpos0101 [facility] [id number] (78322) ALT (SGPT) 9 [iU]/L (Normal) Range: 0-32 AST (SGOT) 15 [iU]/L (Normal) Range: 0-40 Alkaline Phosphatase, S 84 [iU]/L (Normal) Range: 25-165 Bilirubin, Total 0.5 mg/dL (Normal) Range: 0.0-1.2 A/G Ratio 1.4 (Normal) Range: 1.1-2.5 Globulin, Total 3.2 g/dL (Normal) Range: 1.5-4.5 Albumin, Serum 4.4 g/dL (Normal) Range: 3.6-4.8 Protein, Total, Serum 7.6 g/dL (Normal) Range: 6.0-8.5 Calcium, Serum 9.2 mg/dL (Normal) Range: 8.6-10.2 Carbon Dioxide, Total 24 mmol/L (Normal) Range: 20-32 Chloride, Serum 92 mmol/L (Abnormal) Range: 97-108 Potassium, Serum 4.1 mmol/L (Normal) Range: 3.5-5.2 Sodium, Serum 132 mmol/L (Abnormal) Range: 134-144 BUN/Creatinine Ratio 18 (Normal) Range: 11-26 eGFR If Africn Am 74 mL/min/1.73 (Normal) eGFR If NonAfricn Am 64 mL/min/1.73 (Normal) Creatinine, Serum 0.93 mg/dL (Normal) Range: 0.57-1.00 BUN 17 mg/dL (Normal) Range: 8-27 Glucose, Serum 134 mg/dL (Abnormal) Range: 65-99 2-Osb-128322:40 URINE GISELLE CULTURE-GLORY COL Comments: PATIENT NOT FASTINGPERFORMED BY: [facility] Puhmtw6000 [facility] [id number] COUNT (75447) Result 1 NG36 (Normal) Comments: No growth in 36 - 48 hours. Urine Culture,Comprehensive Final report (Normal) 8-Lxp-501659:04 Urinalysis, Office (38878) UA - BILIRUBIN Negative (Normal) UA - BLOOD Hemolyzed Trace (Normal) UA - GLUCOSE Negative (Normal) UA - KETONES Negative mg/dL (Normal) UA - LEUKOCYTE ESTERASE Large (Normal) UA - NITRITE Negative (Normal) UA - PH 6.0 (Normal) UA - PROTEIN 100 mg/dL (Normal) UA - SPECIFIC GRAVITY 1.020 (Normal) URINE UROBILINGN GLORY TIMED Normal mg/dL (Normal) 1-Lrd-572477:04 Basic Metabolic Panel (8) Comments: PERFORMED BY: [facility] [id number] [facility] [id number] Calcium, Serum 9.6 mg/dL (Normal) Range: 8.6-10.2 Carbon Dioxide, Total 26 mmol/L (Normal) Range: 20-32 Chloride, Serum 90 mmol/L (Abnormal) Range: 97-108 Potassium, Serum 4.7 mmol/L (Normal) Range: 3.5-5.2 BUN/Creatinine Ratio 14 (Normal) Range: 11-26 Sodium, Serum 133 mmol/L (Abnormal) Range: 134-144 eGFR If Africn Am 74 mL/min/1.73 (Normal) eGFR If NonAfricn Am 64 mL/min/1.73 (Normal) Creatinine, Serum 0.93 mg/dL (Normal) Range: 0.57-1.00 BUN 13 mg/dL (Normal) Range: 8-27 Glucose, Serum 160 mg/dL (Abnormal) Range: 65-99 01-Feb-20127:56 CHEST, PA AND LATERAL Radiology Report See Note (Normal) Comments: PROCEDURE: X-RAY CHEST REASON FOR EXAM: Female, 66 years old. Hyponatremia. TECHNIQUE: PA and lateral views of the chest. COMPARISON: None. FINDINGS: The lungs are expanded. There is no demons trated parenchymalabnormality.There is no demonstrated pleural abnormality. Normal heart and pericardium. Normal mediastinum and roger. Normal visualized pulmonary arteries.Thereis atherosclerotic calci fication of the aortic arch. There are diffuse degenerative changes of the visualized thoracic spine.Normal visualized ribs, clavicles, and shoulders. Status post prior cholecystectomy. IMPRESSION:No ac curt cardiopulmonary findings. Signed:Pam Hunter M.D.February 01, 2012 at 7:35:17 PM [id number] Signed TT/TT If you are the referring physician and would like to consult with eradiologist who provided this interpretation, please contact Pam Allred M.D. at [phone]. If this radiologist is unavailable, youwillbe directed to another radiologist to assist. If you are a patient with a question regarding this report, pleasecontactyour referring physician directly. Professional Interpretation Provided By: [employer], Phone , These documen ts contain legally protected and confidential healthinformation intended only for the use of the individual or entity namedabove. If you are not the intended recipient, you are hereby notifiedthatany di sclosure, copying, distribution, or other use of these documents isstrictly prohibited. If you have received this information in error,pleasenotify the sender immediately and arrange for the return or d estructionofthese documents. Dictated on 02/01/12722 by Dale ROD,PraveensaTranscribed on 02/01/121937 by ITS IMPORTSign by Pam Hunter MD on 02/01/121938 Sign by: [place] ,Pam 17-Oct-201 Osmolality 276 {mOsmol/kg} Comments: PERFORMED BY: [facility] [id number] BY: [address] [id number] 213:21 (Abnormal) Range: 280-301 17-Oct-201 Osmolality, Urine 704 {mOsmol/kg} Comments: PERFORMED BY: [facility] [id number] BY: [address] [id number] 213:21 (Normal) Comments: 24 hr : 300 - 900 Random: 50 - 1400 After 12hr fluid restriction: >850 17-Oct-201 Sodium, Serum 131 mmol/L Comments: PERFORMED BY: [facility] [id number] BY: [address] [id number] 213:21 (Abnormal) Range: 134-144 17-Oct-201 Sodium, Urine 37 mmol/L Comments: PERFORMED BY: [facility] [id number] BY: [address] [id number] 213:21 (Normal) 17-Oct-201 TSH 1.850 {uIU/mL} Comments: PERFORMED BY: [facility] [id number] BY: [address] [id number] 213:21 (Normal) Range: 0.450-4.500 55-Sqn-104095:20 HgA1C , Office (17606) HgA1C , Office 6.8 % (Normal) Range: 4.6 - 7.1 5-Jfg-298392:10 L/S SPINE,MIN 4 VIEWS Radiology Report See Note (Normal) Comments: PROCEDURE: X-RAY - LUMBAR SPINE REASON FOR EXAM: Female, 66 years old. PAIN TECHNIQUE: Five views of the lumbar spine were obtained. COMPARISON: None FINDINGS:Normal lumbar lordo sis. There is a mild dextroconvex curvature. There is loss of disk height from T11/12 through L1/2. There ismultilevelend plate spondylosis, worst at the thoracolumbar junction. There isfacetarthropathy of the l ower lumbar spine. There is degenerative change ofthespinous processes. The soft tissue structures are unremarkable. IMPRESSION:Degenerative changes of the spine, as detailed above. Signed:Tay JacquesJanuary 08, 2012 at 8:18:09 PM [id number] Signed JL/VENU If you are the referring physician and would like to consult with theradiologist who provided this interpretation, please cont act Lyn Gilmore M.D. at [phone]. If this radiologist is unavailable, you will bedirected to another radiologist to assist. If you are a patient with a question regarding this report, pleasecontactyou r referring physician directly. Professional Interpretation Provided By: [employer], Phone , These documents contain legally protected and confidential healthinformation i ntended only for the use of the individual or entity namedabove. If you are not the intended recipient, you are hereby notifiedthatany disclosure, copying, distribution, or other use of these documents isstrictly prohibited. If you have received this information in error,pleasenotify the sender immediately and arrange for the return or destructionofthese documents. Dictated on 01/08/12 1138 by Gordo GILMORE MDanscribed on 01/08/122021 by ITS IMPORTSign by LYN GILMORE MD on 01/08/122022 Sign by: LYN GILMORE MD 7-Gla-535216:09 HIP, MIN 2 VIEWS Radiology Report See Note (Normal) Comments: PROCEDURE: X-RAY - LEFT HIP REASON FOR EXAM: Female, 66 years old. PAIN TECHNIQUE: Two views of the hip. COMPARISON: None. FINDINGS: Normal femoral head, neck, intertrochanteric region and v isualizedproximalfemur. Normal acetabulum. There is mild articular joint spacenarrowing. Normal visualized superior and inferior pubic rami and ischialtuberosities. IMPRESSION:Mild degenerative change . Signed:Lyn Gilmore M.D.January 08, 2012 at 8:15:08 PM [id number] Signed VENU/VENU If you are the referring physician and would like to consult with theradiologist who provided this interp retation, please contact Lyn Gilmore M.D. at [phone]. If this radiologist is unavailable, you will bedirected to another radiologist to assist. If you are a patient with a question regarding this rep ort, pleasecontactyour referring physician directly. Professional Interpretation Provided By: [employer], Phone , These documents contain legally protected and confidentia l healthinformation intended only for the use of the individual or entity namedabove. If you are not the intended recipient, you are hereby notifiedthatany disclosure, copying, distribution, or other us e of these documents isstrictly prohibited. If you have received this information in error,pleasenotify the sender immediately and arrange for the return or destructionofthese documents. Dictated on 01/08/12 114 by Gordo GILMORE MDanscribed on 01/08/122018 by ITS IMPORTSign by LYN GILMORE MD on 01/08/122019 Sign by: LYN GILMORE MD 4-Hyo-792125:09 HIP, MIN 2 VIEWS Radiology Report See Note (Normal) Comments: PROCEDURE: X-RAY - RIGHT HIP REASON FOR EXAM: Female, 66 years old. PAIN TECHNIQUE: Two views of the hip. COMPARISON: None. FINDINGS: Normal femoral head, neck, intertrochanteric region and visualizedproximalfemur. Normal acetabulum. Normal hip joint. Normal visualized superior and inferior pubic rami and ischialtuberosities. There is right sacroiliac joint sclerosis. IMPRESSION:There is right sacroiliac joint sclerosis. Signed:Lyn Gilmore M.D.January 08, 2012 at 8:16:05 PM [id number] Signed JL/JL If you are the referring physician and would like to consult with adrian rosenbaumogmonty who provided this interpretation, please contact Lyn Gilmore M.D. at [phone]. If this radiologist is unavailable, you will bedirected to another radiologist to assist. If you are a patient w ith a question regarding this report, pleasecontactyour referring physician directly. Professional Interpretation Provided By: [employer], Phone , These documents contain legally protected and confidential healthinformation intended only for the use of the individual or entity namedabove. If you are not the intended recipient, you are hereby notifiedthatany disclosure, c opying, distribution, or other use of these documents isstrictly prohibited. If you have received this information in error,pleasenotify the sender immediately and arrange for the return or destructiono fthese documents. Dictated on 01/08/12 1143 by MUNDO GILMORE MDIATranscribed on 01/08/122019 by ITS IMPORTSign by LYN GILMORE MD on 01/08/122019 Sign by: __ LYN GILMORE MD 78-Cmt-025469:56 Urinalysis, Office (75222) UA - BILIRUBIN Negative (Normal) UA - BLOOD Hemolyzed Trace (Normal) UA - GLUCOSE Negative (Normal) UA - KETONES Negative mg/dL (Normal) UA - LEUKOCYTE ESTERASE Small (Normal) UA - NITRITE Negative (Normal) UA - PH 6.0 (Normal) UA - PROTEIN 100 mg/dL (Normal) UA - SPECIFIC GRAVITY 1.025 (Normal) URINE UROBILINGN GLORY TIMED Normal mg/dL (Normal) 94-Nbq-514244:43 URINE GISELLE CULTURE (GLORY Comments: PATIENT NOT FASTINGPERFORMED BY: [id number] [id number] Information: SRC:UR [id number] COL COUNT) (35399) Result 1 MUG (Normal) Comments: Mixed urogenital flora1,000 Colonies/mL Urine Culture,Comprehensive Final report (Normal) 8-Dpd-100969:10 HgA1C , Office (66575) HgA1C , Office 7.3 % (Abnormal) Range: 4.6 - 7.1 5-Kfr-438962:10 Blood Glucose , Office (84636) Blood Glucose , Office 164 (Normal) Plan of Care Name Dates Details Instructions Fatty liver : Diet, Exercise, and Wt loss Indication: Fatty liver Diabetes mellitus type II, controlled : Follow up in 3 months Indication: Diabetes mellitus type II, controlled Diabetes mellitus type II, controlled : Reviewed Lab Indication: Diabetes mellitus type II, controlled Mixed hyperlipidemia : Cholesterol mgmt Indication: Mixed hyperlipidemia Hypertension, benign : HTN/CAD Red Flags Indication: Hypertension, benign Diabetes mellitus type II, controlled : Follow up in 3 months Indication: Diabetes mellitus type II, controlled Hypertension, benign : Diet, Exercise, and Wt loss Indication: Hypertension, benign Hypertension, benign : HTN/CAD Red Flags Indication: Hypertension, benign Mixed hyperlipidemia : Cholesterol mgmt Indication: Mixed hyperlipidemia Skin lesion of face : Shave Biopsy with Epi- 1\2 inch shaved Indication: Skin lesion of face Encounter for annual general medical examination with abnormal findings in adult : fall reduction handout Indication: Encounter for annual general medical examination with abnormal findings in adult Encounter for annual general medical examination with abnormal findings in adult : elderly packet given Indication: Encounter for annual general medical examination with abnormal findings in adult Encounter for annual general medical examination with abnormal findings in adult : advance planning information Indication: Encounter for annual general medical examination with abnormal findings in adult Encounter for annual general medical examination with abnormal findings in adult : *Weight Loss Discussion Indication: Encounter for annual general medical examination with abnormal findings in adult CAROLYNE (renal artery stenosis) : Reviewed Diagnostic Tests Indication: CAROLYNE (renal artery stenosis) Diabetes mellitus type II, controlled : Follow up in 3 months Indication: Diabetes mellitus type II, controlled Diabetes mellitus type II, controlled : Reviewed Lab Indication: Diabetes mellitus type II, controlled Hypertension, benign : HTN/CAD Red Flags Indication: Hypertension, benign Mixed hyperlipidemia : Cholesterol mgmt Indication: Mixed hyperlipidemia Colon cancer : Reviewed Hair Salon Manager Letter Indication: Colon cancer Adrenal adenoma, left : Reviewed Diagnostic Tests Indication: Adrenal adenoma, left Diabetes type II, uncontrolled, ophthalmic comp : Follow up in 3 months Indication: Diabetes type II, uncontrolled, ophthalmic comp Fatty liver : Diet, Exercise, and Wt loss Indication: Fatty liver Mixed hyperlipidemia : Cholesterol mgmt Indication: Mixed hyperlipidemia Hypertension, benign : HTN/CAD Red Flags Indication: Hypertension, benign Mixed hyperlipidemia : Reviewed Lab Indication: Mixed hyperlipidemia Diabetes mellitus type II, controlled : Follow up in 3 months Indication: Diabetes mellitus type II, controlled Mixed hyperlipidemia : Cholesterol mgmt Indication: Mixed hyperlipidemia Hypertension, benign : Diet, Exercise, and Wt loss Indication: Hypertension, benign Hypertension, benign : HTN/CAD Red Flags Indication: Hypertension, benign Diabetes mellitus type II, controlled : Continue Current Prescription(s) Indication: Diabetes mellitus type II, controlled Hypertension, benign : Follow up in 2 weeks Indication: Hypertension, benign Depression : Eprescribed prescriptions (G8553) Indication: Depression Diabetes mellitus type II, controlled : Follow up in 3 months Indication: Diabetes mellitus type II, controlled Diabetic retinopathy of right eye : Reviewed Hair Salon Manager Letter Indication: Diabetic retinopathy of right eye Mixed hyperlipidemia : Cholesterol mgmt Indication: Mixed hyperlipidemia Fatty liver : Reviewed Lab Indication: Fatty liver Fatty liver : Diet, Exercise, and Wt loss Indication: Fatty liver Hypertension, benign : Diet, Exercise, and Wt loss Indication: Hypertension, benign Hypertension, benign : HTN/CAD Red Flags Indication: Hypertension, benign Diabetes mellitus type II, controlled : Reviewed Lab Indication: Diabetes mellitus type II, controlled Diabetes mellitus type II, controlled : Eprescribed prescriptions (G8553) Indication: Diabetes mellitus type II, controlled Annual Medicare Phyiscal WITHOUT abnormal findings (Renamed from Encounter for general adult medical examination without abnormal findings) : *Weight Loss Discussion Indication: Annual Medicare Phyiscal WITHOUT abnormal findings (Renamed from Encounter for general adult medical examination without abnormal findings) Annual Medicare Phyiscal WITHOUT abnormal findings (Renamed from Encounter for general adult medical examination without abnormal findings) : fall reduction handout Indication: Annual Medicare Phyiscal WITHOUT abnormal findings (Renamed from Encounter for general adult medical examination without abnormal findings) Annual Medicare Phyiscal WITHOUT abnormal findings (Renamed from Encounter for general adult medical examination without abnormal findings) : elderly packet given Indication: Annual Medicare Phyiscal WITHOUT abnormal findings (Renamed from Encounter for general adult medical examination without abnormal findings) Annual Medicare Phyiscal WITHOUT abnormal findings (Renamed from Encounter for general adult medical examination without abnormal findings) : advance planning information Indication: Annual Medicare Phyiscal WITHOUT abnormal findings (Renamed from Encounter for general adult medical examination without abnormal findings) Encounter for screening for malignant neoplasm of colon (Renamed from Special screening for malignant neoplasms, colon) : *Colon Cancer Screening Indication: Encounter for screening for malignant neoplasm of colon (Renamed from Special screening for malignant neoplasms, colon) Diabetes mellitus type II, controlled : Follow up in 3 months Indication: Diabetes mellitus type II, controlled Adrenal adenoma, left : Reviewed Diagnostic Tests Indication: Adrenal adenoma, left Mixed hyperlipidemia : Cholesterol mgmt Indication: Mixed hyperlipidemia Fatty liver : Diet, Exercise, and Wt loss Indication: Fatty liver Hypertension, benign : HTN/CAD Red Flags Indication: Hypertension, benign Diabetes mellitus type II, controlled : Eprescribed prescriptions (G8553) Indication: Diabetes mellitus type II, controlled Diabetes mellitus type II, controlled : Diabetes and Exercise: Preventing Low Blood Sugar: blood sugar Indication: Diabetes mellitus type II, controlled Diabetes type II, uncontrolled, ophthalmic comp : Follow up in 3 months Indication: Diabetes type II, uncontrolled, ophthalmic comp Diabetes type II, uncontrolled, ophthalmic comp : Eprescribed prescriptions (G8553) Indication: Diabetes type II, uncontrolled, ophthalmic comp Diabetes type II, uncontrolled, ophthalmic comp : Follow up in 3 months Indication: Diabetes type II, uncontrolled, ophthalmic comp Mixed hyperlipidemia : Eprescribed prescriptions (G8553) Indication: Mixed hyperlipidemia BMI 36.0-36.9,adult : Follow up in [address] Swift Indication: BMI 36.0-36.9,adult Abdominal pain, diffuse : Reviewed Lab Indication: Abdominal pain, diffuse Adrenal adenoma, left : Reviewed Diagnostic Tests Indication: Adrenal adenoma, left Atherosclerosis : Reviewed Diagnostic Tests Indication: Atherosclerosis Fatty liver : Reviewed Diagnostic Tests Indication: Fatty liver Abdominal pain, diffuse : Eprescribed prescriptions (G8553) Indication: Abdominal pain, diffuse Mixed hyperlipidemia : Eprescribed prescriptions (G8553) Indication: Mixed hyperlipidemia Diabetic nephropathy : Diet, Exercise, and Wt loss Indication: Diabetic nephropathy Diabetic nephropathy : Eprescribed prescriptions (G8553) Indication: Diabetic nephropathy Mixed hyperlipidemia : Eprescribed prescriptions (G8553) Indication: Mixed hyperlipidemia Diabetes mellitus type II, controlled : Eprescribed prescriptions (G8553) Indication: Diabetes mellitus type II, controlled screening : Eprescribed prescriptions (G8553) Indication: screening Pre-operative examination : Eprescribed prescriptions (G8553) Indication: Pre-operative examination Diabetes type II, uncontrolled, ophthalmic comp : Eprescribed prescriptions (G8553) Indication: Diabetes type II, uncontrolled, ophthalmic comp Mixed hyperlipidemia : Diet, Exercise, and Wt loss Indication: Mixed hyperlipidemia Mixed hyperlipidemia : Diet, Exercise, and Wt loss Indication: Mixed hyperlipidemia Diabetes type II, uncontrolled, ophthalmic comp : Eprescribed prescriptions (G8553) Indication: Diabetes type II, uncontrolled, ophthalmic comp Diabetes type II, uncontrolled, ophthalmic comp : Diet, Exercise, and Wt loss Indication: Diabetes type II, uncontrolled, ophthalmic comp Diabetes type II, uncontrolled, ophthalmic comp : Eprescribed prescriptions (G8553) Indication: Diabetes type II, uncontrolled, ophthalmic comp Syncope (Renamed from Episode of syncope) : Fainting (Syncope) *: fainting Indication: Syncope (Renamed from Episode of syncope) Diabetes type II, uncontrolled, ophthalmic comp : Diet, Exercise, and Wt loss Indication: Diabetes type II, uncontrolled, ophthalmic comp Diabetes type II, uncontrolled, ophthalmic comp : Diet, Exercise, and Wt loss Indication: Diabetes type II, uncontrolled, ophthalmic comp Hypertension, benign : Diet, Exercise, and Wt loss Indication: Hypertension, benign Upper Respiratory Infection : *Antibiotic Usage Education - Female Indication: Upper Respiratory Infection Diabetes type II, uncontrolled, ophthalmic comp : Diet, Exercise, and Wt loss Indication: Diabetes type II, uncontrolled, ophthalmic comp Diabetes type II, uncontrolled, ophthalmic comp : Diet, Exercise, and Wt loss Indication: Diabetes type II, uncontrolled, ophthalmic comp Mixed hyperlipidemia : Diet, Exercise, and Wt loss Indication: Mixed hyperlipidemia Hypertension, benign : High Blood Pressure (Essential Hypertension) *: essential hypertension Indication: Hypertension, benign Cystitis, acute : follow up for recheck urine 1 week after complete antibiotic Indication: Cystitis, acute Low back pain potentially associated with radiculopathy : Low Back Pain Exercises *: low back pain Indication: Low back pain potentially associated with radiculopathy Diabetes mellitus type II, controlled : Diabetes and Illness: diabetes mellitus Indication: Diabetes mellitus type II, controlled Diabetic nephropathy : Diabetes and Illness: diabetes and illness Indication: Diabetic nephropathy Hypertension, benign : Diabetes and Illness: diabetes Indication: Hypertension, benign Diabetic neuropathy : *Diabetes Education Indication: Diabetic neuropathy Hypertension, benign : High Blood Pressure (Essential Hypertension) *: blood pressure Indication: Hypertension, benign Planned Observations CALCIFIDIOL (53162) VIT D 25Indication: Vitamin D deficiency On: 61-Xtf-253531:51 Request TSH (52584)Indication: Diabetes mellitus type II, controlled On: 66-Uys-131675:51 Request URINALYSIS, W/ MICRO (85568)Indication: Hypertension, benign On: 84-Nwu-110860:50 Request MICROALBUMIN: CREATININE RATIO (99107) AND (35794)Indication: Hypertension, benign On: :50 Request METABOLIC PANEL, COMPREHENSIVE (40481)Indication: Hypertension, benign On: :50 Request CBC W/AUTO DIFF WBC (42165)Indication: Hypertension, benign On: :50 Request LIPOPROTEIN, BLD, BY NMR (17056)Indication: Mixed hyperlipidemia On: :50 Request METABOLIC PANEL, COMPREHENSIVE (37938)Indication: Diabetic nephropathy On: :47 Request HGB A1C (85815)Indication: Diabetic nephropathy On: :47 Request LIPID PANEL (02267)Indication: Mixed hyperlipidemia On: :47 Request METABOLIC PANEL, COMPREHENSIVE (87875)Indication: Hyponatremia with normal extracellular fluid volume On: :46 Request SED RATE ERYTHROCYTE (81155)Indication: Thrombocytosis On: :42 Request C-REACTIVE PROTEIN (72103)Indication: Thrombocytosis On: :42 Request SPEP (89787)Indication: Thrombocytosis On: :41 Request UPEP (19112)Indication: Thrombocytosis On: :41 Request CBC W/AUTO DIFF WBC (30192)Indication: Thrombocytosis On: :41 Request LIPID PANEL (89906)Indication: Mixed hyperlipidemia On: :25 Request CBC with auto diff (86856)Indication: Diabetes mellitus type II, controlled On: :25 Request METABOLIC PANEL, COMPREHENSIVE (62806)Indication: Diabetes mellitus type II, controlled On: 78-Sgi-334085:25 Request Hemoglobin Glyclated (HGB A1C) (34179)Indication: Diabetes mellitus type II, controlled On: 99-Pus-629570:25 Request LIPID PANEL (77055)Indication: Mixed hyperlipidemia On: :58 Request Hemoglobin Glyclated (HGB A1C) (60765)Indication: Diabetic nephropathy On: 7-Roh-116048:58 Request MICROALBUMIN: CREATININE RATIO (97123) AND (75968)Indication: Diabetic nephropathy On: :57 Request METABOLIC PANEL, COMPREHENSIVE (88061)Indication: Diabetic nephropathy On: 8-Tne-190649:57 Request Potassium Serum (54167)Indication: Hypokalemia (Renamed from Decreased potassium in the blood) On: 29-Vnq-185623:47 Request CBC with auto diff (33520)Indication: Hypertension, benign On: 15-Npl-715883:41 Request Hemoglobin Glyclated (HGB A1C) (79937)Indication: Diabetes mellitus type II, controlled On: 19-Hgq-636946:40 Request METABOLIC PANEL, COMPREHENSIVE (93785)Indication: Hypertension, benign On: 37-Ort-524817:40 Request LIPID PANEL (00308)Indication: Mixed hyperlipidemia On: 85-Gwe-994495:40 Request URINE GISELLE CULTURE-GLORY COL COUNT (19219)Indication: Other abnormal finding of urine On: 47-Goh-182214:11 Request HgA1C , Office (74382)Indication: Diabetes type II, uncontrolled, ophthalmic comp On: 83-Xnw-31301:43 Request CBC W/AUTO DIFF WBC (56646)Indication: Diabetes type II, uncontrolled, ophthalmic comp On: 94-Mvi-961654:35 Request MICROALBUMIN: CREATININE RATIO (46158) AND (66520)Indication: Diabetic nephropathy On: 19-Cwh-375247:35 Request METABOLIC PANEL, COMPREHENSIVE (07297)Indication: Diabetes type II, uncontrolled, ophthalmic comp On: 53-Vff-491493:35 Request LIPID PANEL (48228)Indication: Mixed hyperlipidemia On: 44-Nwt-449966:35 Request CBC W/AUTO DIFF WBC (17162)Indication: Diabetic nephropathy On: 7-Doy-422758:44 Request METABOLIC PANEL, COMPREHENSIVE (36883)Indication: Diabetic nephropathy On: 4-Aqh-203228:44 Request LIPID PANEL (25703)Indication: Mixed hyperlipidemia On: 0-Usr-855145:44 Request HgA1C , Office (57824)Indication: Diabetes type II, uncontrolled, ophthalmic comp On: 50-Qmt-93473:48 Request LIPID PANEL (71418)Indication: Mixed hyperlipidemia On: 45-Vch-992483:53 Request CBC WITH MANUAL DIFF (88664)Indication: Diabetes type II, uncontrolled, ophthalmic comp On: 51-Xdi-933670:53 Request METABOLIC PANEL, COMPREHENSIVE (05809)Indication: Diabetes type II, uncontrolled, ophthalmic comp On: 71-Bhj-581931:53 Request MICROALBUMIN: CREATININE RATIO (21245) AND (12591)Indication: Diabetic nephropathy On: :53 Request TSH (25364)Indication: Depression On: :10 Request MICROALBUMIN: CREATININE RATIO (84651) AND (92520)Indication: Diabetes type II, uncontrolled, ophthalmic comp On: : Request METABOLIC PANEL, COMPREHENSIVE (55450)Indication: Diabetes type II, uncontrolled, ophthalmic comp On: : Request LIPID PANEL (34668)Indication: Mixed hyperlipidemia On: : Request METABOLIC PANEL, COMPREHENSIVE (48374)Indication: Hypertension, benign On: : Request CBC WITH MANUAL DIFF (33648)Indication: Hypertension, benign On: : Request LIPID PANEL (44514)Indication: Mixed hyperlipidemia On: : Request LIPID PANEL (23447)Indication: Mixed hyperlipidemia On: : Request METABOLIC PANEL, COMPREHENSIVE (16586)Indication: Hyponatremia with normal extracellular fluid volume On: 4-Xsm-540731:20 Request MICROALBUMIN: CREATININE RATIO ([id number]) AND ([id number])Indication: Diabetic nephropathy On: : Request CBC WITH MANUAL DIFF ([id number])Indication: Diabetes type II, uncontrolled, ophthalmic comp On: :30 Request METABOLIC PANEL, COMPREHENSIVE ([id number])Indication: Diabetes type II, uncontrolled, ophthalmic comp On: :30 Request LIPID PANEL ([id number])Indication: Mixed hyperlipidemia On: :30 Request LIPID PANEL ([id number])Indication: Mixed hyperlipidemia On: :08 Request MICROALBUMIN: CREATININE RATIO ([id number]) AND ([id number])Indication: Diabetic nephropathy On: : Request METABOLIC PANEL, COMPREHENSIVE ([id number])Indication: Hypertension, benign On: : Request URINE GISELLE CULTURE (GLORY COL COUNT) ([id number])Indication: Abnormal urine On: : Request METABOLIC PANEL, COMPREHENSIVE ([id number])Indication: Hyponatremia with normal extracellular fluid volume On: 76-Yjh-140205:01 Request Hemoglobin Glyclated (HGB A1C) ([id number])Indication: Diabetes type II, uncontrolled, ophthalmic comp On: 27-Xqo-893855:00 Request LIPID PANEL ([id number])Indication: Hypertension, benign On: :58 Request METABOLIC PANEL, COMPREHENSIVE ([id number])Indication: Hypertension, benign On: :58 Request URINALYSIS, W/ MICRO ([id number])Indication: Hypertension, benign On: :43 Request CBC WITH MANUAL DIFF ([id number])Indication: Hypertension, benign On: :43 Request METABOLIC PANEL, COMPREHENSIVE ([id number])Indication: Hyponatremia with normal extracellular fluid volume On: :43 Request LIPID PANEL ([id number])Indication: Mixed hyperlipidemia On: :43 Request Metabolic Panel, Basic ([id number])Indication: Hyponatremia with normal extracellular fluid volume On: 93-Wge-094958:21 Request Comments: 2 weeks TSH ([id number])Indication: Hyponatremia with normal extracellular fluid volume On: :58 Request OSMOLALITY URINE ([id number])Indication: Hyponatremia with normal extracellular fluid volume On: :58 Request OSMOLALITY BLOOD ([id number])Indication: Hyponatremia with normal extracellular fluid volume On: :58 Request SODIUM URINE ([id number])Indication: Hyponatremia with normal extracellular fluid volume On: :58 Request SODIUM SERUM ([id number])Indication: Hyponatremia with normal extracellular fluid volume On: :58 Request MICROALBUMIN: CREATININE RATIO ([id number]) AND ([id number])Indication: Hypertension, benign On: 68-Mbt-808821:57 Request CBC WITH MANUAL DIFF ([id number])Indication: Hypertension, benign On: :56 Request METABOLIC PANEL, COMPREHENSIVE ([id number])Indication: Hypertension, benign On: :56 Request LIPID PANEL ([id number])Indication: Mixed hyperlipidemia On: 76-Nqt-420335:56 Request TSH ([id number])Indication: Depression On: :31 Request URINALYSIS, W/ MICRO ([id number])Indication: Diabetes type II, uncontrolled, ophthalmic comp On: :31 Request MICROALBUMIN: CREATININE RATIO ([id number]) AND ([id number])Indication: Diabetes type II, uncontrolled, ophthalmic comp On: : Request CBC WITH MANUAL DIFF ([id number])Indication: Diabetes type II, uncontrolled, ophthalmic comp On: : Request METABOLIC PANEL, COMPREHENSIVE ([id number])Indication: Hypertension, benign On: : Request LIPID PANEL ([id number])Indication: Mixed hyperlipidemia On: : Request Planned Encounters Medical; 3 Month FU - 30 mins per pop up On: 14-Jun-2018 13:45 [facility] Kathy Noguera DO, DO, Kathleen Planned Procedures Flu Vaccine (Quadrivalent) On: 15-Mar-2018 Intent [id number]: Kathy Noguera DO Comments: Lot #[id number]/30/2019Site-L dltd, IMDose prefilled syringegiven by:CHAPIS Barone reviewed and ABN signed Kathy Noguera DO PNEUM VAC ADLT/IMUMNOSPR, On: 22-Aug-2017 Intent SBC/INTRM ([id number])By: Chuckie Comments: 0.5 cc given lt arm lot [id number] exp 12/12/18 Kathy TOMAS DO, Kathleen [id number] On: 22-Aug-2017 Intent COUNSELING FOR OBESITY, 15 MINUTES (G0447)By: Kathy Noguera DO, DO, Kathleen SCREENING DIGITAL On: 22-Aug-2017 Intent TOMOSYNTHESIS OF BREAST ([id number])By: Kathy Noguera DO, DO, Kathleen ELECTROCARDIOGRAM, COMPLETE On: 09-Jul-2017 Intent (ECG) ([id number])By: Chuckie TOMAS, Comments: nsr no acute chg-- wavy baseline from parkinson and tremor-- poor R wave progression -non speicifce st flattening aKthy Hebert DO CT SCAN OF ABDOMEN WITH On: 04-Apr-2017 Intent CONTRAST ([id number])By: Kathy Noguera DO, DO, Kathleen Flu Vaccine (Quadrivalent) On: 11-Dec-2016 Intent 91367Xo: Kathy Noguera DO Comments: Lot:[id number]:09/17/17Amt:0.5mlRoute:IMSite: L DltdGiven By: CHAPIS Montiel signed Kathy Noguera DO SCREENING DIGITAL On: 27-Sep-2016 Intent TOMOSYNTHESIS OF BREAST ([id number])By: Kathy Noguera DO, DO, Kathleen SCREENING DIGITAL On: 25-Sep-2016 Intent TOMOSYNTHESIS OF BREAST ([id number])By: Sachi Jordan [facility] On: 30-Jun-2016 Intent COUNSELING FOR OBESITY, 15 MINUTES (G0447)By: Kathy Noguera DO, DO, Kathleen ELECTROCARDIOGRAM, COMPLETE On: 14-Jun-2016 Intent (ECG) ([id number])By: Chuckie TOMAS, Comments: nsr no acute chg Kathy Hebert DO DEXA SCAN AXIAL SKELETON On: 14-Mar-2016 Intent ([id number])By: Prateek Swift MD Flu Vaccine (Quadrivalent) On: 07-Dec-2015 Intent [id number]: Prateek Swift MD Comments: Lot:[id number]:09/29/16Dose:0.5mLRoute:IMSite:L DltdGiven By:ELIZABETH signed CT - Abdomen & Pelvis (IV On: 08-Sep-2015 Intent Contrast Needed)By: Emmanuelle Quiñonez DO Cartoid DopplerBy: Khang TOMAS, On: 08-Sep-2015 Intent Emmanuelle A MAMMOGRAM, SCREENING, BOTH On: 08-Sep-2015 Intent BREAST ([id number])By: Emmanuelle Quiñonez DO Flu Vaccine (Quadrivalent) On: 24-Feb-2015 Intent 92142Xa: Emmanuelle Quiñonez DO Comments: lot [id number]: 09/30/2015site/route L mary kate, IMamt 0.5mlVIS and ABN signed when applicableChelsea, [facility] ADMINISTRATION OF INFLUENZA On: 24-Feb-2015 Intent VIRUS VACCINE ([id number])By: Emmanuelle Quiñonez DO Radiology - Lumbar SpineBy: On: 18-Nov-2014 Intent Emmanuelle Quiñonez DO MAMMOGRAM, SCREENING, BOTH On: 12-Aug-2014 Intent BREAST ([id number])By: Emmanuelle Quiñonez DO Cartoid DopplerBy: Khang TOMAS, On: 12-Aug-2014 Intent Emmanuelle A EKG ([id number])By: Khang TOMAS, On: 17-Jun-2014 Intent Emmanuelle A Comments: ekg showed normal sinus rhythym, normal axis, no acute st/t wave changes Prevnar 13 (14065)By: Khang On: 20-Mar-2014 Intent DO, Emmanuelle A Comments: [id number] arm, IMAS BILATERAL MAMMOGRAMS On: 16-Sep-2013 Intent (69830)By: Emmanuelle Quiñonez DO CT - Brain/Head (IV Contrast On: 22-Aug-2013 Intent Needed)By: Emmanuelle Quiñonez DO EEGBy: Emmanuelle Quiñonez DO A On: 22-Aug-2013 Intent Eprescribed prescriptions On: 22-Aug-2013 Intent (G8553)By: Emmanuelle Quiñonez DO Eprescribed prescriptions On: 10-Jun-2013 Intent (G8553)By: Emmanuelle Quiñonez DO Eprescribed prescriptions On: 04-Mar-2013 Intent (G8553)By: Kirsten Cardona Pulse Oximetry (53922)By: On: 04-Mar-2013 Intent Kirsten Cardona Comments: 96% IMMUNIZ ADMNIN, 1 VAC, On: 21-Jan-2013 Intent SNGL/COMBO ([id number])By: Sergio Comments: lot # [id number] 6.2014site- L dltdroute-IMdose- 0.5mlVIS and ABN signedCHendersRadha mary LPN, LPN FLU VAC, SPLIT, >3 YEARS, On: 21-Jan-2013 Intent INTRAMUSC ([id number])By: Radha Hill LPN Venous Doppler - LeftBy: Khang On: 04-Dec-2012 Intent DO Emmanuelle A EKG ([id number])By: Brendan, On: 04-Dec-2012 Intent Kirsten Comments: ekg showed normal sinus rhythym, normal axis, no acute st/t wave changes Cartoid DopplerBy: Khang TOMAS, On: 04-Dec-2012 Intent Emmanuelle A Comments: oct Radiology - Knee - Left - On: 04-Dec-2012 Intent Weight BearingBy: Emmanuelle Quiñonez DO MAMMOGRAM, SCREENING, BOTH On: 02-Sep-2012 Intent BREASTS ([id number])By: Emmanuelle Quiñonez DO Eprescribed prescriptions On: 02-Sep-2012 Intent (G8553)By: Kirsten Cardona Eprescribed prescriptions On: 10-Jun-2012 Intent (G8553)By: Kirsten Cardona CT - Abdomen & PelvisBy: Fast On: 08-May-2012 Intent Emmanuelle TOMAS Comments: with contrast- stat today call wet read Eprescribed prescriptions On: 08-May-2012 Intent (G8553)By: Kirsten Cardona Eprescribed prescriptions On: 04-Mar-2012 Intent (G8553)By: Kirsten Cardona Radiology - ChestBy: Khang TOMAS, On: 19-Jan-2012 Intent Emmanuelle A Comments: PA & Lat- 2 weeks HOLLEY (Ankle Brachial Index) On: 17-Jan-2012 Intent ([id number])By: Emmanuelle Quiñonez DO Cartoid DopplerBy: Khang TOMAS, On: 17-Jan-2012 Intent Emmanuelle A ADMINISTRATION OF INFLUENZA On: 17-Jan-2012 Intent VIRUS VACCINE (G0008)By: Comments: Lot #:[id number] date:06.12Amount given:prefilled syringeSite given:L Dltd, IMGiven by: DEBORAH Hernandez signed Kirsten Cardona FLU VAC, SPLIT, >3 YEARS, On: 17-Jan-2012 Intent INTRAMUSC (47356)By: Kirsten Cardona Carotid DopplerBy: Khang TOMAS, On: 12-Jan-2012 Intent Emmanuelle A Comments: Please get results to Dr Rowan Redd Phone- [phone] Radiology - Hip - On: 08-Jan-2012 Intent BilateralBy: Emmanuelle Quiñonez DO Comments: weight bearing Radiology - Lumbar SpineBy: On: 08-Jan-2012 Intent Emmanuelle Quiñonez DO EKG (08585)By: Brendan, On: 03-Oct-2011 Intent Kirsten Comments: ekg showed normal sinus rhythym, normal axis, no acute st/t wave changes TDAP VACCINE >7 IM ([id number])By: On: 03-Oct-2011 Intent Kirsten Cardona Comments: Lot #[id number]/22/14Site-left deltoidgiven by: Drake Colón LPN PNEUM VAC ADLT/IMUMNOSPR, On: 03-Oct-2011 Intent [facility] ([id number])By: Brendan, Comments: received elsewhere in 2012 Kirsten Instructions Name Dates Details Non-smoker : How to access health information online Indication: Non-smoker Non-smoker : How to access health information online - Detail Indication: Non-smoker Non-smoker : Patient Instructions Indication: Non-smoker Diabetes mellitus type II, controlled : How to access health information online Indication: Diabetes mellitus type II, controlled Diabetes mellitus type II, controlled : How to access health information online - Detail Indication: Diabetes mellitus type II, controlled Diabetes mellitus type II, controlled : Patient Instructions Indication: Diabetes mellitus type II, controlled Non-smoker : How to access health information online Indication: Non-smoker Non-smoker : How to access health information online - Detail Indication: Non-smoker Non-smoker : Patient Instructions Indication: Non-smoker Non-smoker : How to access health information online Indication: Non-smoker Non-smoker : How to access health information online - Detail Indication: Non-smoker Non-smoker : Patient Instructions Indication: Non-smoker Diabetes mellitus type II, controlled : obesity counseling Indication: Diabetes mellitus type II, controlled Diabetes mellitus type II, controlled : How to access health information online Indication: Diabetes mellitus type II, controlled Diabetes mellitus type II, controlled : How to access health information online - Detail Indication: Diabetes mellitus type II, controlled Diabetes mellitus type II, controlled : Patient Instructions Indication: Diabetes mellitus type II, controlled Diabetes type II, uncontrolled, ophthalmic comp : How to access health information online Indication: Diabetes type II, uncontrolled, ophthalmic comp Diabetes type II, uncontrolled, ophthalmic comp : How to access health information online - Detail Indication: Diabetes type II, uncontrolled, ophthalmic comp Diabetes type II, uncontrolled, ophthalmic comp : Patient Instructions Indication: Diabetes type II, uncontrolled, ophthalmic comp Non-smoker : How to access health information online Indication: Non-smoker Non-smoker : How to access health information online - Detail Indication: Non-smoker Non-smoker : Patient Instructions Indication: Non-smoker Depression : How to access health information online Indication: Depression Depression : How to access health information online - Detail Indication: Depression Depression : Patient Instructions Indication: Depression Diabetes mellitus type II, controlled : How to access health information online Indication: Diabetes mellitus type II, controlled Diabetes mellitus type II, controlled : How to access health information online - Detail Indication: Diabetes mellitus type II, controlled Diabetes mellitus type II, controlled : Patient Instructions Indication: Diabetes mellitus type II, controlled Diabetes mellitus type II, controlled : How to access health information online - Detail Indication: Diabetes mellitus type II, controlled Diabetes type II, uncontrolled, ophthalmic comp : obesity counseling Indication: Diabetes type II, uncontrolled, ophthalmic comp Non-smoker : How to access health information online Indication: Non-smoker Non-smoker : How to access health information online - Detail Indication: Non-smoker Non-smoker : Patient Instructions Indication: Non-smoker Diabetes mellitus type II, controlled : How to access health information online Indication: Diabetes mellitus type II, controlled Diabetes mellitus type II, controlled : How to access health information online - Detail Indication: Diabetes mellitus type II, controlled Diabetes mellitus type II, controlled : Patient Instructions Indication: Diabetes mellitus type II, controlled Diabetes type II, uncontrolled, ophthalmic comp : How to access health information online Indication: Diabetes type II, uncontrolled, ophthalmic comp Diabetes type II, uncontrolled, ophthalmic comp : How to access health information online - Detail Indication: Diabetes type II, uncontrolled, ophthalmic comp Diabetes type II, uncontrolled, ophthalmic comp : Patient Instructions Indication: Diabetes type II, uncontrolled, ophthalmic comp Mixed hyperlipidemia : How to access health information online Indication: Mixed hyperlipidemia Mixed hyperlipidemia : How to access health information online - Detail Indication: Mixed hyperlipidemia Mixed hyperlipidemia : Patient Instructions Indication: Mixed hyperlipidemia Abdominal pain, diffuse : How to access health information online Indication: Abdominal pain, diffuse Abdominal pain, diffuse : How to access health information online - Detail Indication: Abdominal pain, diffuse Abdominal pain, diffuse : Patient Instructions Indication: Abdominal pain, diffuse Mixed hyperlipidemia : How to access health information online Indication: Mixed hyperlipidemia Mixed hyperlipidemia : How to access health information online - Detail Indication: Mixed hyperlipidemia Mixed hyperlipidemia : Patient Instructions Indication: Mixed hyperlipidemia Diabetic nephropathy : How to access health information online Indication: Diabetic nephropathy Diabetic nephropathy : How to access health information online - Detail Indication: Diabetic nephropathy Diabetic nephropathy : Patient Instructions Indication: Diabetic nephropathy Mixed hyperlipidemia : How to access health information online Indication: Mixed hyperlipidemia Mixed hyperlipidemia : How to access health information online - Detail Indication: Mixed hyperlipidemia Mixed hyperlipidemia : Patient Instructions Indication: Mixed hyperlipidemia Diabetes mellitus type II, controlled : How to access health information online Indication: Diabetes mellitus type II, controlled Diabetes mellitus type II, controlled : How to access health information online - Detail Indication: Diabetes mellitus type II, controlled Diabetes mellitus type II, controlled : Patient Instructions Indication: Diabetes mellitus type II, controlled screening : Patient Instructions Indication: screening Pre-operative examination : Patient Instructions Indication: Pre-operative examination Diabetes type II, uncontrolled, ophthalmic comp : Patient Instructions Indication: Diabetes type II, uncontrolled, ophthalmic comp Diabetes type II, uncontrolled, ophthalmic comp : Patient Instructions Indication: Diabetes type II, uncontrolled, ophthalmic comp Diabetes type II, uncontrolled, ophthalmic comp : Patient Instructions Indication: Diabetes type II, uncontrolled, ophthalmic comp Syncope (Renamed from Episode of syncope) : Patient Instructions Indication: Syncope (Renamed from Episode of syncope) Mixed hyperlipidemia : Patient Instructions Indication: Mixed hyperlipidemia Diabetes type II, uncontrolled, ophthalmic comp : Patient Instructions Indication: Diabetes type II, uncontrolled, ophthalmic comp Hypertension, benign : Patient Instructions Indication: Hypertension, benign Diabetes type II, uncontrolled, ophthalmic comp : Patient Instructions Indication: Diabetes type II, uncontrolled, ophthalmic comp Hypertension, benign : Patient Instructions Indication: Hypertension, benign Cystitis, acute : Patient Instructions Indication: Cystitis, acute Low back pain potentially associated with radiculopathy : Patient Instructions Indication: Low back pain potentially associated with radiculopathy Mixed hyperlipidemia : DISCONTINUED - LIPID PANEL (52203) Indication: Mixed hyperlipidemia Hypertension, benign : Patient Instructions Indication: Hypertension, benign Limb pain : Patient Instructions Indication: Limb pain Encounters Office Visit On: 15-Mar-2018 13:37 Encounter Reason: Follow up for chronic medical issues - The patient feels well with minor complaints, has good energy level and is sleeping well. Patient has been compliant with instructions. Current medication use: no End: 18-Mar-2018 9:31 side effects. Patient sleeps 10 hours per night. Impact of disease: no overall impact. Nutrition: balanced diet and supplemental vitamins. The medical issues the patient is following up for include blood sugar issues, high blood pressure and other., [ADDITIONAL REASON] Follow up tests - Date: (03/11/18). Encounter Diagnosis: BMI 35.0-35.9,adult, Non-smoker, Hypertension, benign, Mixed hyperlipidemia, Parkinson disease, symptomatic, CAROLYNE (renal artery stenosis), Diabetes mellitus type II, controlled, Vitamin D deficiency, Fatty liver, Need for prophylactic vaccination and inoculation against influenza (Renamed from Need for immunization against influenza), Diabetic retinopathy of right eye, Depression [facility] Office Visit On: 12-Oct-2017 13:03 Encounter Reason: Follow up for chronic medical issues - The patient feels well with minor complaints, has good energy level and is sleeping well. Patient has been compliant with instructions. Current medication use: no End: 12-Oct-2017 13:55 side effects. Patient sleeps 10 hours per night. Impact of disease: no overall impact. Nutrition: balanced diet. The medical issues the patient is following up for include blood sugar issues, high blood pressure and other.Encounter Diagnosis: Diabetes mellitus type II, controlled, BMI 35.0-35.9,adult, Parkinson disease, symptomatic, Vitamin D deficiency, Hypertension, benign, Mixed hyperlipidemia, CAROLYNE (renal artery stenosis), Obesity (BMI 30-39.9), Colon cancer, Nutritional counseling [facility] Office Visit On: 31-Aug-2017 10:31 Encounter Reason: Follow up tests - Date: (08/28/17 path report).Encounter Diagnosis: BMI 35.0-35.9,adult, Non-smoker, Skin lesion of face, Cellulitis, face End: 31-Aug-2017 11:26 [facility] Office Visit On: 28-Aug-2017 11:17 Encounter Reason: Skin Lesion, Facial - No changes in management were made at the last visit. Symptoms include growing lesion. The condition involves a single lesion (skin tag on face under her right eye).Encounter Diagnosis: BMI 35.0-35.9,adult, End: 28-Aug-2017 12:34 Non-smoker, Skin lesion of face [facility] Office Visit On: 22-Aug-2017 11:48 Encounter Reason: Annual Medicare Exam - The patient had reviewed and updated the family history, medication/s, past medical history and social history. Yes the patient did have () a mini mental status exam done tod End: 22-Aug-2017 12:43 ay. The activities of daily living the patient needs help with are shopping for groceries. The patient has had urinary incontinence, but the patient has not had fecal incontinence, missed or ran out of medications to soon, driven in past 6 months, fallen in the past 6 months, gotten lost, has a medalert necklace or bracelet, put area rugs through house or put handrails in bathroom. The patient has com pleted the following preventative measures: mammography (10/04/16 and dexa was done last July) and colonoscopy (07/2017 - [facility]). The patient does not have durable power of prosecuting attorney or living will. The p atient has noticed dropping activities and interests, getting bored, feeling helpless, staying at home rather than doing something new or going out, having problems with memory than others and lack of e nergy. Other providers contributing to the patient's care are other: (nephrology and vision screen done in [place] in march[place]Encounter Diagnosis: BMI 35.0-35.9,adult, Non-smoker, Encounter for annual general medical examination with abnormal findings in adult, Parkinson disease, symptomatic, Memory impairment, Encounter for screening for malignant neoplasm of colon (Renamed from Special screening for malignant neoplasms, colon), Encounter for screening mammogram for breast cancer (Renamed from Encounter for screening mammogram for malignant neoplasm of breast), Postmenopausal (Renamed from Postmenopausal status), Diabetes mellitus type II, controlled [facility] Office Visit On: 09-Jul-2017 13:02 Encounter Reason: Follow up tests - Date: (07/03/17 labs)., [ADDITIONAL REASON] Follow up for chronic medical issues - The patient feels well with minor complai End: 09-Jul-2017 17:14 nts, has good energy level and is sleeping well. Patient has been compliant with instructions. Current medication use: no side effects. Patient sleeps 7 hours per night. Impact of disease: no overall im pact. Nutrition: balanced diet. The medical issues the patient is following up for include blood sugar issues and high blood pressure. Encounter Diagnosis: Diabetes mellitus type II, controlled, BMI 35.0-35.9,adult, Non-smoker, Adrenal adenoma, left , Colon cancer, Parkinson disease, symptomatic, Vitamin D deficiency, Mixed hyperlipidemia, Hypertension, benign, CAROLYNE (renal artery stenosis) [facility] Office Visit On: 04-Apr-2017 13:51 Encounter Reason: Follow up for chronic medical issues - The patient feels well with minor complaints (back pain), has good energy level and is sleeping well. Patient has been compliant with instructions. Current medicat End: 04-Apr-2017 14:56 ion use: no side effects and compliant with dosing regimen. Patient sleeps 10 hours per night. Nutrition: balanced diet and supplemental vitamins. The medical issues the patient is following up for incl ude All identified problems below, blood sugar issues, high blood pressure, high cholesterol and other. blood pressure range :, fasting blood sugars : and weight :.Encounter Diagnosis: Diabetes type II, uncontrolled, ophthalmic comp (250.52), BMI 34.0-34.9,adult, Non-smoker, Back pain, Hypertension, benign, Abnormal urine, Mixed hyperlipidemia, Vitamin D deficiency, Parkinson disease, symptomatic, Fatty liver, Colon cancer, Adrenal adenoma, left [facility] Office Visit On: 29-Dec-2016 14:03 Encounter Reason: Follow up tests - Date: (12/17)., [ADDITIONAL REASON] Follow up for chronic medical issues - The patient feels well with minor complai End: 29-Dec-2016 14:39 nts, has good energy level and is sleeping well. Patient has been compliant with instructions. Current medication use: no side effects and compliant with dosing regimen. Patient sleeps 12 hours per nigh t. Nutrition: balanced diet and supplemental vitamins. The medical issues the patient is following up for include All identified problems below, blood sugar issues, depression, high blood pressure and high cholesterol. fasting blood sugars :. Encounter Diagnosis: BMI 34.0-34.9,adult, Non-smoker, Hypertension, benign, Parkinson disease, symptomatic, Vitamin D deficiency, Mixed hyperlipidemia, Diabetes mellitus type II, controlled [facility] Office Visit On: 11-Dec-2016 11:36 Encounter Reason: Depression - Symptoms include depressed mood and fatigue. Onset was sudden.Encounter Diagnosis: Non-smoker, Hypertension, benign, Dysthymic, Diabetes mellitus type II, controlled, End: 11-Dec-2016 13:16 Need for prophylactic vaccination and inoculation against influenza (Renamed from Need for immunization against influenza) [facility] Office Visit On: 27-Sep-2016 13:25 Encounter Reason: Follow up tests - Date: (09/25/16 labs)., [ADDITIONAL REASON] Follow up for chronic medical issues - The patient feels well with minor complai End: 27-Sep-2016 14:12 nts, has good energy level and is sleeping well. Patient has been compliant with instructions. Current medication use: no side effects and compliant with dosing regimen. Patient sleeps 10 hours per nigh t. Nutrition: balanced diet and supplemental vitamins. The medical issues the patient is following up for include All identified problems below, blood sugar issues, high blood pressure, high cholesterol and other. fasting blood sugars :. Encounter Diagnosis: BMI 35.0-35.9,adult, Diabetes mellitus type II, controlled, Non-smoker, Encounter for screening mammogram for breast cancer (Renamed from Encounter for screening mammogram for malignant neoplasm of breast), Hypertension, benign, Colon cancer, Vitamin D deficiency, Fatty liver, Parkinson disease, symptomatic, Mixed hyperlipidemia, Diabetic retinopathy of right eye, Diabetic nephropathy, Dysthymic [facility] Phone Encounter On: 25-Sep-2016 10:38 Encounter Diagnosis: Encounter for screening mammogram for breast cancer (Renamed from Encounter for screening mammogram for malignant neoplasm of breast) End: 25-Sep-2016 10:42 [facility] Office Visit On: 30-Jun-2016 14:06 Encounter Reason: Annual Medicare Exam - The patient had reviewed and updated the family history, medication/s, past medical history and social history. Yes the patient did have a mini mental status exam done today. The End: 30-Jun-2016 15:11 activities of daily living the patient needs help with are shopping for groceries. The patient has had urinary incontinence, but the patient has not had fecal incontinence, missed or ran out of medicati ons to soon, driven in past 6 months, fallen in the past 6 months, gotten lost, has a medalert necklace or bracelet, put area rugs through house or put handrails in bathroom. The patient has completed t he following preventative measures: mammography (04/18) and colonoscopy (5 yrs). The patient does not have durable power of prosecuting attorney or living will. The patient has noticed dropping activities and intere sts, getting bored, feeling helpless, staying at home rather than doing something new or going out, having problems with memory than others and lack of energy. Other providers contributing to the patient's care are other:.Encounter Diagnosis: BMI 36.0-36.9,adult, Non-smoker, Annual Medicare Phyiscal WITHOUT abnormal findings (Renamed from Encounter for general adult medical examination without abnormal findings), Encounter for screening for malignant neoplasm of colon (Renamed from Special screening for malignant neoplasms, colon), Diabetes type II, uncontrolled, ophthalmic comp (250.52) [facility] Office Visit On: 14-Jun-2016 13:34 Encounter Reason: Follow up for chronic medical issues - The patient feels well with minor complaints, has good energy level and is sleeping well. Patient has been compliant with instructions. Current medication use: no End: 14-Jun-2016 16:07 side effects and compliant with dosing regimen. Patient sleeps 11 hours per night. Nutrition: balanced diet and supplemental vitamins. The medical issues the patient is following up for include All iden tified problems below, blood sugar issues, high blood pressure and high cholesterol. fasting blood sugars :.Encounter Diagnosis: Diabetes mellitus type II, controlled, Non-smoker, BMI 37.0-37.9, adult, Vitamin D deficiency, Hypertension, benign, Fatty liver, Bilateral carotid artery stenosis, Adrenal adenoma, left, Parkinson disease, symptomatic, Mixed hyperlipidemia, Colon cancer [facility] Office Visit On: 14-Mar-2016 11:58 Encounter Reason: Follow up for chronic medical issues - The patient feels well with minor complaints, has decreased energy level and is sleeping poorly. Patient has been compliant with instructions. Current medication u End: 14-Mar-2016 15:37 se: no side effects and compliant with dosing regimen. Patient sleeps 10 hours per night. Nutrition: balanced diet.Encounter Diagnosis: Diabetes type II, uncontrolled, ophthalmic comp (250.52), Mixed hyperlipidemia, Fatty liver, Personal history of stroke with residual effects, Bilateral carotid artery stenosis, Parkinson disease, symptomatic, Hypertension, benign, Thrombocytosis, Colon cancer, Adrenal adenoma, left, Diabetic nephropathy, Diabetic retinopathy of right eye, Dysthymic, Vitamin D deficiency, Postmenopausal (Renamed from Postmenopausal status) [facility] Office Visit On: 07-Dec-2015 11:04 Encounter Reason: Follow up for chronic medical issues - The patient feels well with minor complaints (I have this leg problem with L leg where I cant keep is still when I try to sleep like that RLS. ??I dont get it all End: 07-Dec-2015 16:35 the time, would say last month or so it started and been really bad ), has decreased energy level and is sleeping well. Patient has been compliant with instructions. Current medication use: experiencing side effects (nausea from one of her meds but not sure which one it is) and compliant with dosing regimen. Patient sleeps 8 hours per night. Nutrition: balanced diet. The medical issues the patient is following up for include All identified problems below, blood sugar issues, high blood pressure and high cholesterol., [ADDITIONAL REASON] Follow up tests - Date: (12.03.15). Encounter Diagnosis: Mixed hyperlipidemia, BMI 35.0-35.9,adult, Diabetes type II, uncontrolled, ophthalmic comp (250.52), Non-smoker, Diabetic retinopathy of right eye, Colon cancer, Diabetic neuropathy (357.2), Bilateral carotid artery stenosis, Hypertension, benign, Thrombocytosis, Parkinson disease, symptomatic, Dysthymic, Personal history of stroke with residual effects, Fatty liver, Need for prophylactic vaccination and inoculation against influenza (Renamed from Need for immunization against influenza) [facility] Office Visit On: 22-Sep-2015 9:19 Encounter Reason: Follow up tests - Date:. Note for Discuss procedure results: had CT of abdomen pain is gone, Encounter Diagnosis: Abdominal pain, diffuse, BMI 36.0-36.9,adult, Fatty liver, Adrenal adenoma, left, Atherosclerosis End: 22-Sep-2015 10:21 [facility] Office Visit On: 08-Sep-2015 11:20 Encounter Reason: Follow up for chronic medical issues - The patient feels well with minor complaints (nausea from one of her meds but not sure which one), has decreased energy level and is sleeping well. Patient has bee End: 08-Sep-2015 13:47 n compliant with instructions. Current medication use: experiencing side effects (nausea from one of her meds but not sure which one it is) and compliant with dosing regimen. Patient sleeps 8 hours per night. Nutrition: balanced diet. The medical issues the patient is following up for include All identified problems below, blood sugar issues, high blood pressure and high cholesterol. Note for Follow up for chronic medical issues: she didnt take her bp meds today- she is getting average 130/80 or lower - her rash better treated for scabies and gone - nausea since increaswed sinemet so going to talk to katherine about it and tremor better- mood been fair to good- Bhatti not convinced parkinsons - follwoing her but sineemt helps tremor-- not taking crestor due to cost but chol good -platelsts better, [ADDITIONAL REASON] Follow up tests - Diagnostic tests include other (labs - in scanned documents). Date: (08/2015). Encounter Diagnosis: Mixed hyperlipidemia, Hypertension, benign, Diabetes type II, uncontrolled, ophthalmic comp (250.52), Dysthymic , BMI 36.0-36.9,adult, Non-smoker, Bilateral carotid artery stenosis, Thrombocytosis, Tremor, Encounter for screening mammogram for breast cancer (Renamed from Encounter for screening mammogram for malignant neoplasm of breast), Abdominal pain, diffuse [facility] Office Visit On: 25-May-2015 8:41 Encounter Reason: Follow up for chronic medical issues - The patient feels well with minor complaints (rash all over body continues- see derm?), has decreased energy level and is sleeping well. Patient has been compliant End: 25-May-2015 22:30 with instructions. Current medication use: no side effects and compliant with dosing regimen. Patient sleeps 8 hours per night. Nutrition: balanced diet. The medical issues the patient is following up for include All identified problems below, blood sugar issues, high blood pressure and high cholesterol. Note for Follow up for chronic medical issues: mood better but a lot of stres still rash all ov er itches worse when more stress and bp is better but sugars higher fasting good- was diagnosed with parkinsons and on sinemet and does help her, [ADDITIONAL REASON] Follow up tests - Diagnostic tests include other (labs ). Date: (05/2015- in scan deb documents). Encounter Diagnosis: Mixed hyperlipidemia, Dermatitis, Thrombocytosis, Hypertension, benign, Bilateral carotid artery stenosis, Hyponatremia with normal extracellular fluid volume, Diabetic nephropathy, Dysthymic [facility] Office Visit On: 24-Feb-2015 11:49 Encounter Reason: Follow up for chronic medical issues - The patient feels well with minor complaints (arthritis pain continues to bother her, chronic itching worsening), has decreased energy level and is sleeping well. End: 28-Feb-2015 20:52 Patient has been compliant with instructions. Current medication use: no side effects and compliant with dosing regimen. Patient sleeps 8 hours per night. Nutrition: balanced diet. The medical issues th e patient is following up for include All identified problems below, blood sugar issues, high blood pressure and high cholesterol. Note for Follow up for chronic medical issues: her rash got bettter w ith prednisone ??ut came back off - and she wonders if nerves - she scratching- bp elevated as ran out of atenolol- hasnt taken since- we talked about risk rebound htn running risk stroke mi so avoid doing this-- mood better and sugar more stable, [ADDITIONAL REASON] Follow up tests - Diagnostic tests include other (labs ). Date: (02/19/15). Encounter Diagnosis: Need for prophylactic vaccination and inoculation against influenza (Renamed from Need for immunization against influenza), Hyperlipidemia, unspecified, Dysthymic, Neurodermatitis, Diabetes mellitus type II, controlled, Bilateral carotid artery stenosis, Hypertension, benign, Noncompliance with medications [facility] Office Visit On: 18-Nov-2014 11:19 Encounter Reason: Follow up for chronic medical issues - The patient feels well with minor complaints (aches and pains in lower back and down legs- hx of lbp), has good energy level and is sleeping well. Patient has been End: 19-Nov-2014 22:01 compliant with instructions. Current medication use: no side effects and compliant with dosing regimen. Patient sleeps 8 hours per night. Nutrition: balanced diet. The medical issues the patient is fol lowing up for include All identified problems below, blood sugar issues, high blood pressure and high cholesterol. Note for Follow up for chronic medical issues: thinks bp up hard to walk, [ADDITIONAL REASON] Follow up tests - Diagnostic tests include other (labs ). Date: (11/13/14). , [ADDITIONAL REASON] Back Pain - Note for Back pain: back pain low radiating down both legs worse w ith walking not with walking legs feelweak not numb- goes both thighs- ibuprofen helps Encounter Diagnosis: Diabetes, Type II, controlled (250.00), Hypokalemia (Renamed from Decreased potassium in the blood), Carotid Stenosis (433.10), Hypertension,benign(401.1), Hyperlipidemia, Unspecified (272.4), Depression/Anxiety (300.4), LOW BACK PAIN WITH RADICULOPATHY (724.4), Dermatitis, Hyponatremia with normal extracellular fluid volume [facility] Office Visit On: 12-Aug-2014 14:40 Encounter Reason: Follow up for chronic medical issues - The patient feels well with no complaints, has good energy level and is sleeping well. Patient has been compliant with instructions. Current medication use: no joseph End: 13-Aug-2014 22:40 e effects and compliant with dosing regimen. Patient sleeps 8 hours per night. Nutrition: balanced diet. The medical issues the patient is following up for include All identified problems below, blood s ugar issues, high blood pressure and high cholesterol. blood pressure range : and fasting blood sugars :. Note for Follow up for chronic medical issues: she is feeling better had vitreous hemmorrhage and macroaneaurysm of right eye repaired and her vision getting better- she checking her bp- she feels likebetter- 120-130/70-80, [ADDITIONAL REASON] Follow up tests - Diagnostic tests include other (labs ). Date: (06/18/14). Encounter Diagnosis: Vitreous hemorrhage, Retinal macroaneurysm of right eye, Diabetes, Type II, controlled (250.00), Depression/Anxiety (300.4), Hypertension,benign(401.1), Hyperlipidemia, Unspecified (272.4), Carotid Stenosis (433.10), screening [facility] Phone Encounter On: 19-Jun-2014 13:05 Encounter Diagnosis: Abnormal Urine (791.9) End: 19-Jun-2014 13:13 [facility] Office Visit On: 18-Jun-2014 11:14 Encounter Reason: BP nurse visitEncounter Diagnosis: Hypertension,benign(401.1) End: 18-Jun-2014 14:50 [facility] Office Visit On: 17-Jun-2014 9:07 Encounter Reason: Preoperative evaluation - The patient feels well with no complaints, has good energy level and is sleeping well. Surgical procedures include: other (vitrectomy of right eye). Date of procedure: (06/22/14 End: 18-Jun-2014 22:[address] [facility] with [address]. Kole Tellez) . There have been no problems with general anesthesia or blood/blood products. Prosthetics include: dentures and eye glasses. Note for Preoperative dominic luation: having eye surgery- by Dr Tellez - by mac - bp has been high since off amlopiine which was taken off at hospital - we will do half bid so she not taking all at once - no chest pain sob dizzy or syncopeEncounter Diagnosis: Pre-Operative Examination, Unspecified (V72.84), Hypertension,benign(401.1), Diabetes type II, uncontrolled, ophthalmic comp (250.52), Diabetic proliferative retinopathy (362.02), Carotid Stenosis (433.10), Hyponatremia with normal extracellular fluid volume, Hyperlipidemia, Unspecified (272.4) [facility] Office Visit On: 20-Mar-2014 10:33 Encounter Reason: Follow up for chronic medical issues - The patient feels well with minor complaints (talk about vision), has good energy level and is sleeping well. Patient has been compliant with instructions. Current End: 22-Mar-2014 20:51 medication use: no side effects and compliant with dosing regimen. Patient sleeps 8 hours per night. Nutrition: balanced diet and low salt diet. The medical issues the patient is following up for inclu de All identified problems below, blood sugar issues (diabetic neuropathy), depression (anxiety), high blood pressure, high cholesterol and other (benighn essential tremor, hip/leg pain). Note for Foll ow up for chronic medical issues: she didnt get flu shot doesnt want one and weight down 7 pounds her bp up today - bp up and has been running higher - saw neuro they think possible parkinsons not sure but sinemt helped- mood stable and gerd good, [ADDITIONAL REASON] Follow up tests - Diagnostic tests include other (labs ). Date: (03/16/14). Encounter Diagnosis: Diabetes type II, uncontrolled, ophthalmic comp (250.52), Hypertension,benign(401.1), Carotid Stenosis (433.10), Hyperlipidemia, Unspecified (272.4), Depression/Anxiety (300.4), Tremor, Colon Cancer (153.9), Hyponatremia with normal extracellular fluid volume, Diabetic nephropathy(583.81), PREVENTION OF PNEUMONIA (V03.82) [facility] Office Visit On: 17-Dec-2013 9:46 Encounter Reason: Follow up for chronic medical issues - The patient feels well with minor complaints (left leg pain still bothersome and worse with cold weather), has good energy level and is sleeping well. Patient has End: 17-Dec-2013 10:45 been compliant with instructions. Current medication use: no side effects and compliant with dosing regimen. Patient sleeps 8 (other than coughing) hours per night. Nutrition: balanced diet and low salt diet. The medical issues the patient is following up for include All identified problems below, blood sugar issues (diabetic neuropathy), depression (anxiety), high blood pressure, high cholesterol and other (benighn essential tremor, hip/leg pain). Note for Follow up for chronic medical issues: weight up 4 pounds- she is only checking sugars every other day fasting not after meals - told not enoug h- need to be checking twice daily- she saw cardio and they switched her to lsinopril from norvasc- no syncope - no dizzy and seeing bavis for tremor , [ADDITIONAL REASON] Follow up tests - Diagnostic tests include other (labs ). Date: (12/2013). Encounter Diagnosis: Diabetes type II, uncontrolled, ophthalmic comp (250.52), Carotid Stenosis (433.10), Diabetic proliferative retinopathy (362.02), Diabetic nephropathy(583.81), Hypertension,benign(401.1), Hyperlipidemia, Unspecified (272.4), Hypokalemia (Renamed from Decreased potassium in the blood), Hyponatremia with normal extracellular fluid volume, Colon Cancer (153.9), Tremor [facility] Office Visit On: 16-Sep-2013 10:58 Encounter Reason: Follow up for chronic medical issues - The patient feels well with no complaints, has good energy level and is sleeping well. Patient has been compliant with instructions. Current medication use: no joseph End: 16-Sep-2013 22:52 e effects and compliant with dosing regimen. Patient sleeps 8 (other than coughing) hours per night. Nutrition: balanced diet and low salt diet. The medical issues the patient is following up for includ e All identified problems below, blood sugar issues (diabetic neuropathy), depression (anxiety), high blood pressure, high cholesterol and other (benighn essential tremor, hip/leg pain). Note for Follo w up for chronic medical issues: getting up in am and sugars running 200- not watching diet or exercise and has holter monitor seeing cardio for on sunday-mood has been better and not even taking extra 1/2 dse , [ADDITIONAL REASON] Follow up tests - Diagnostic tests include CT scan (brain), EEG and other (labs ). Date: (08/22/13). Encounter Diagnosis: Diabetes type II, uncontrolled, ophthalmic comp (250.52), Hyperlipidemia, Unspecified (272.4), screening, Personal history of stroke with residual effects, Carotid Stenosis (433.10), Depression/Anxiety (300.4), Diabetic nephropathy(583.81), Diabetic proliferative retinopathy (362.02), Tremor [facility] Office Visit On: 22-Aug-2013 9:28 Encounter Reason: Follow up hospital - Reason for ER visit: note: (syncope while walking down steps- ). The patient feels well with no complaints, has good energy level and is sleeping well. Patient has been compliant wi End: 25-Aug-2013 20:07 th instructions. Current medication use: no side effects and compliant with dosing regimen. Patient sleeps 7 hours per night. Note for Follow up hospital: she had no warning that was going to happen- she had no dizzy no chest pain no sob no sx prior went completely out when was walking down steps had stress and echpo and ct of head - nomore syncope since -had low sodium was 128- has had some dizzy- no loss of bladder control no tongue biting Encounter Diagnosis: Syncope (Renamed from Episode of syncope), Hyponatremia with normal extracellular fluid volume, Hypertension,benign(401.1), Carotid Stenosis (433.10) [facility] Visit On: 10-Jun-2013 10:19 Encounter Reason: Follow up for chronic medical issues - The patient feels well with minor complaints (morgan- increase or change paxil?), has good energy level and is sleeping well. Patient has been compliant with instru End: 10-Jun-2013 11:12 ctions. Current medication use: no side effects and compliant with dosing regimen. Patient sleeps 8 (other than coughing) hours per night. Nutrition: balanced diet and low salt diet. The medical issues the patient is following up for include All identified problems below, blood sugar issues (diabetic neuropathy), depression (anxiety), high blood pressure, high cholesterol and other (benighn essential tremor, hip/leg pain). Note for Follow up for chronic medical issues: bp good- sugars little higher in raji- last night had sphaghetti - is doing some exercise- nolow sugars - insurance wont pay for gl yburide- son passed and cousin ??passed so feels like needs more meds- no want grief cousneling - irritated easily- breathing and cold better - has eye exam set up - feels better on lantus, [ADDITIONAL REASON] Follow up tests - Diagnostic tests include other (labs). Date: (06/09/13). Encounter Diagnosis: Hyperlipidemia, Unspecified (272.4), Diabetes type II, uncontrolled, ophthalmic comp (250.52), Carotid Stenosis (433.10), Hypertension,benign(401.1), Depression/Anxiety (300.4) [facility] Phone Encounter On: 21-Apr-2013 18:01 Encounter Diagnosis: Depression/Anxiety (300.4) End: 21-Apr-2013 18:04 [facility] Office Visit On: 04-Mar-2013 13:42 Encounter Reason: Follow up for chronic medical issues - The patient feels well with minor complaints (cold symptoms), has decreased energy level and is sleeping well. Patient has been compliant with instructions. Morena End: 04-Mar-2013 22:38 t medication use: no side effects and compliant with dosing regimen. Patient sleeps 8 (other than coughing) hours per night. Nutrition: balanced diet and low salt diet. The medical issues the patient is following up for include All identified problems below, blood sugar issues (diabetic neuropathy), depression (anxiety), high blood pressure, high cholesterol and other (benighn essential tremor, hip/le g pain). Note for Follow up for chronic medical issues: other than cold symptoms has been feeling good- she has been behaving - has given up pop- bp is good, [ADDITIONAL REASON] Follow up tests - Diagnostic tests include other (labs). Date: (01/2013). , [ADDITIONAL REASON] Cold Symptoms - Symptoms include sneezing, nasal congestion, runny nose, postnas al drainage, sore throat, productive cough, facial pressure, facial pain and headache. Onset was sudden 1 week(s) ago. The symptoms occur constantly. The patient describes this as worsening. Associated symptoms include wheezing, shortness of breath and fatigue, while associated symptoms do not include ear pain, nausea, vomiting, diarrhea, fever or chills. The patient is not currently being treated for this problem. Encounter Diagnosis: SHORTNESS OF BREATH (786.05), Diabetes type II, uncontrolled, ophthalmic comp (250.52), Hyperlipidemia, Unspecified (272.4), Carotid Stenosis (433.10), Hypertension,benign(401.1), Depression/Anxiety (300.4), Upper Respiratory Infection (465.9) [facility] Historical Summary On: 21-Jan-2013 9:43 Encounter Diagnosis: Need for prophylactic vaccination and inoculation against influenza (V04.81) End: 21-Jan-2013 9:45 [facility] Phone Encounter On: 04-Dec-2012 17:39 Encounter Diagnosis: Knee Pain (719.46) End: 04-Dec-2012 17:40 [facility] Office Visit On: 04-Dec-2012 13:48 Encounter Reason: Follow up for chronic medical issues - The patient feels well with minor complaints (left knee pain), has good energy level and is sleeping well. Patient has been compliant with instructions. Current me End: 05-Dec-2012 22:04 dication use: no side effects and compliant with dosing regimen. Patient sleeps 8 hours per night. Nutrition: balanced diet and low salt diet. The medical issues the patient is following up for include All identified problems below, blood sugar issues (diabetic neuropathy), depression (anxiety), high blood pressure, high cholesterol and other (benighn essential tremor, hip/leg pain)., [ADDITIONAL REASON] Follow up tests - Diagnostic tests include other (labs). Date: (11/27/12- in scanned documents). , [ADDITIONAL REASON] Knee Pain - Symptoms include knee pain, decreased range of motion, difficulty be aring weight and difficulty ambulating, while symptoms do not include swelling, warmth, redness or stiffness. Symptoms are located in the left posterior knee. There is no radiation. The patient describe s the pain as sharp. Onset was sudden 2 week(s) ago. Associated symptoms do not include fever, chills or localized rash. Note for Knee pain: she bumped it - then started to hurt- no leg swelling- no taking anything for it- hurts all the time Encounter Diagnosis: Hypertension,benign(401.1), Knee Pain (719.46), Diabetes type II, uncontrolled, ophthalmic comp (250.52), Diabetic nephropathy(583.81), Diabetic proliferative retinopathy (362.02), Carotid Stenosis (433.10), Hyperlipidemia, Unspecified (272.4), Hyponatremia with normal extracellular fluid volume (276.1) [facility] Office Visit On: 16-Sep-2012 16:23 Encounter Diagnosis: Hyperlipidemia, Unspecified (272.4) End: 16-Sep-2012 16:28 [facility] Office Visit On: 02-Sep-2012 13:04 Encounter Reason: Follow up for chronic medical issues - The patient feels well with no complaints, has good energy level and is sleeping well. Patient has been compliant with instructions. Current medication use: no joseph End: 02-Sep-2012 13:36 e effects and compliant with dosing regimen. Patient sleeps 8 hours per night. Nutrition: balanced diet and low salt diet. The medical issues the patient is following up for include All identified probl ems below, blood sugar issues (diabetic neuropathy), depression (anxiety), high blood pressure, high cholesterol and other (benighn essential tremor, hip/leg pain). Note for Follow up for chronic medic al issues: her sugar went up - she is now trying to be more active- and will try to watch carbs- feeling well mood good less aches and pains and moving around better, [ADDITIONAL REASON] Follow up tests - Diagnostic tests include other (labs). Date: (08/29/12- in scanned documents). Encounter Diagnosis: Diabetes type II, uncontrolled, ophthalmic comp (250.52), Hyperlipidemia, Unspecified (272.4), screening, Colon Cancer (153.9), Carotid Stenosis (433.10), Hypertension,benign(401.1), Depression/Anxiety (300.4) [facility] Office Visit On: 24-Jun-2012 18:06 Encounter Diagnosis: Hyponatremia with normal extracellular fluid volume (276.1) End: 24-Jun-2012 18:08 [facility] Office Visit On: 10-Jun-2012 14:16 Encounter Reason: Follow up for chronic medical issues - The patient feels well with no complaints, has good energy level and is sleeping well. Patient has been compliant with instructions. Current medication use: no joseph End: 10-Jun-2012 15:12 e effects and compliant with dosing regimen. Patient sleeps 8 hours per night. Nutrition: balanced diet and low salt diet. The medical issues the patient is following up for include All identified probl ems below, blood sugar issues (diabetic neuropathy), depression (anxiety), high blood pressure, high cholesterol and other (benighn essential tremor, hip/leg pain). Note for Follow up for chronic medic al issues: feeling alot better- her bp is doing good and she said everything alot better- ended up had bad kidney infection as reason why was in hospital- had colonsocopy too and was - nothing on c olonsocopy- no more abd pain or back pain, [ADDITIONAL REASON] Follow up tests - Diagnostic tests include other (labs). Date: (06/12- in scanned documents). Encounter Diagnosis: Hypertension,benign(401.1), Depression/Anxiety (300.4), Diabetes type II, uncontrolled, ophthalmic comp (250.52), Hyponatremia with normal extracellular fluid volume (276.1), Hyperlipidemia, Unspecified (272.4), Abdominal Pain,LUQ (789.02), Cystitis,Acute (595.0), Carotid Stenosis (433.10), Urine, Abnormal (791.9) [facility] Office Visit On: 14-May-2012 14:04 Encounter Diagnosis: Hyperlipidemia, Unspecified (272.4) End: 14-May-2012 14:40 [facility] Office Visit On: 08-May-2012 11:54 Encounter Reason: Follow up hospital - Reason for ER visit: abdominal pain. The patient does not feel well (abdomen still hurts and radiates around to her back), has decreased energy level and is sleeping well. Patient h End: 09-May-2012 23:05 as been compliant with instructions. Current medication use: no side effects and compliant with dosing regimen. Patient sleeps 8 hours per night. Hospital procedures performed were other (see print outs ). Note for Follow up hospital: went to er on with 3 days of abd pain nausea and vomit- she was constipated- but took laxative and had 3 bm sat and one yesterday- but stillhaving abd pain mid abd and around back Encounter Diagnosis: Cystitis,Acute (595.0), Abdominal Pain,LUQ (789.02), Hyponatremia with normal extracellular fluid volume (276.1) [facility] Office Visit On: 18-Mar-2012 18:00 Encounter Diagnosis: Diabetes type II, uncontrolled, ophthalmic comp (250.52) End: 18-Mar-2012 21:10 [facility] Office Visit On: 04-Mar-2012 11:10 Encounter Reason: Follow up tests - Diagnostic tests include chest X-ray and other (carotid doppler). Date: (02/01/12). Current symptoms include other (leg pain has 90% resolved with therapy. Sees alot of improvement. ). End: 04-Mar-2012 11:55 Note for Discuss procedure results: back and leg alot better with pt- her sugars running 200s- so going to send to dietican and give pamphlets Encounter Diagnosis: LOW BACK PAIN WITH RADICULOPATHY (724.4), Diabetes type II, uncontrolled, ophthalmic comp (250.52), Carotid Stenosis (433.10), Hypertension,benign(401.1), Hyponatremia with normal extracellular fluid volume (276.1), Hyperlipidemia, Unspecified (272.4) [facility] Phone Encounter On: 19-Jan-2012 15:21 Encounter Diagnosis: Hyponatremia with normal extracellular fluid volume (276.1) End: 19-Jan-2012 15:22 [facility] Office Visit On: 17-Jan-2012 11:06 Encounter Reason: Follow up for chronic medical issues - The patient feels well with minor complaints (leg is worsening-), has decreased energy level and is sleeping well. Patient has been compliant with instructions. Cu End: 21-Jan-2012 22:31 rrent medication use: no side effects and compliant with dosing regimen. Patient sleeps 8 hours per night. Nutrition: balanced diet and low salt diet. The medical issues the patient is following up for include All identified problems below, blood sugar issues (diabetic neuropathy), depression (anxiety), high blood pressure, high cholesterol and other (benighn essential tremor, hip/leg pain). Note for Follow up for chronic medical issues: leg pain had gotten better off pravastatin but still issues- ??and pain with walking needing to rest - was never on chol meds prior to pravastatin- no si joint pa in- her sodium low has chronic diarrhea- but had colonsoocpy last year and no colitis- they thought from colon surgery- tryry powder like metamucil - no vomit no otc meds but vit c Encounter Diagnosis: Diabetes, Type II, controlled (250.00), Depression/Anxiety (300.4), Hypertension,benign(401.1), Need for prophylactic vaccination and inoculation against influenza (V04.81), Atherosclerosis (440.9), LOW BACK PAIN WITH RADICULOPATHY (724.4), Hyperlipidemia, Unspecified (272.4), Hyponatremia with normal extracellular fluid volume (276.1) [facility] Phone Encounter On: 12-Jan-2012 16:00 Encounter Diagnosis: Diabetes type II, uncontrolled, ophthalmic comp (250.52) End: 12-Jan-2012 16:02 [facility] Office Visit On: 08-Jan-2012 11:05 Encounter Reason: Leg pain - The leg pain began gradually over time and has been occurring for months. The symptoms have been occurring in an increasing pattern. The symptoms are described as a dull ache, tightness and s End: 08-Jan-2012 11:51 harp, stabbing pain and are moderate to severe. There is involvement of the lower extremities (both) (starts in the shins and radiates up her legs). There are no precipitating factors. There are no rel ieving factors. The symptoms have been associated with numbness and tingling in toes (but has had this in past with diabetic neuro), while the symptoms have not been associated with chest pain, dizzines s, dyspnea, fatigue, muscle weakness, paresthesias, calf swelling or fever. Note for Leg pain: got worse the last week- - legs feel achey and weak- no back pain- doesnt hurt ??all the time- no trauma- legs not swelling - feels like falling forward- she hurts worse sitting along time in car and walking a distance- and no loss of bowel or bladder control- no back painEncounter Diagnosis: Diabetic nephropathy(583.81), Limb pain (729.5) [facility] Office Visit On: 11-Oct-2011 11:53 Encounter Reason: Follow up tests - Diagnostic tests include other (labs). Date: (10/06/11). Current symptoms include other (sugars have been running high- 70's to 246's- checking spiratic).Encounter Diagnosis: Hypertension,benign(401.1), End: 18-Oct-2011 8:12 Diabetic nephropathy(583.81), Hyperlipidemia, Unspecified (272.4), Urine, Abnormal (791.9) [facility] Office Visit On: 03-Oct-2011 11:52 Encounter Reason: new patient female physical - Last seen between 3-6 months ago. General health: feels well with no complaints, has good energy level and is sleeping well. The patient's appetite is normal. Nutrition: no End: 05-Oct-2011 22:19 rmal/adequate. Exercises 0 days per week. Sleeps on average 8 (broken up to go to bathroom) hours per night. Elimination problems include diarrhea (because of previous hx of colon cancer). Safety measur es include appropriate use of safety belts and home smoke detectors. Current emotional problems include anxiety and depression. screening, colonoscopy (12/2010), screening, mammography (2011), screening, Pap smear (years ago) and screening, visual acuity (2011). Note for new patient female physical: last at doctor in may and last lab in may- last hemoglobin a1c per family was 6.5- she is eating alot of fruit horacio waermelon- we discusdsed - she isnt drinking sugar drinks- - her bp at home 120/80- she checks her blood sugars every day - fasting mostly - 80-120- not usually after eating- bone density 2010- normalEncounter Diagnosis: PREVENTION OF PNEUMONIA (V03.82), PREVENTION OF TETANUS (V03.7), Hyperlipidemia, Unspecified (272.4), Hypertension,benign(401.1), Depression/Anxiety (300.4), Diabetic proliferative retinopathy (362.02), Diabetes type II, uncontrolled, ophthalmic comp (250.52), Diabetic neuropathy (357.2) [facility] Payers [place] Amador Owens; a guarantor
--- OUTSIDE RECORDS SUMMARY | 2018-06-21 22:52 | XMS RPT_ITS | Continuity of Care Document ---
:1945 Author Organization [facility] Address [address] [place] [address] Phone Care Team Providers Name Role Phone [...] Comments: 3. 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 next OV 09/16, every 6 Chuy Dent in [facility](Opthalmology) next OV 04/08 Status: Active Encounter for annual general medical [...] better Status: Active Tremor (R25.1, 781.0) Comments: Bhatti not convinced parkinsons but responding to sinemt Status: Active Unspecified Diagnosis Status: Active Vitamin D deficiency (E55.9, 268.9) Comments: severely deficient- pt doesnt tolerate vit d- Status: Active Vitreous hemorrhage (H43.10, 379.23) Status: Active Medications Name Dates Details AmLODIPine Besylate 5 MG Oral Tablet 1 (one) Tablet bid for 90 days Quantity: 180 {Tablet} Refills: 3 Ordered:09-Jul-2017 Jeb Noguera DO, DO, Kathleen Start : 09-Jul-2017 Active ASPIRIN LOW DOSE, 81MG (Oral Tablet) 1 tab qd (81 MG) Active Crestor 5 MG Oral Tablet 1 Tablet qd for 30 days Quantity: 30 {Tablet} Refills: 3 Ordered:23-Nov-2017 Jeb Noguera DO, DO, Kathleen Start : 23-Nov-2017 Active Comments:substitute generic Januvia 50 MG Oral Tablet 1 (one) Tablet Tablet qd for 0 days Quantity: 30 {Tablet} Refills: 2 Ordered:04-Apr-2017 Rubina Macedo LPN Start : 04-Apr-2017 Active Lantus SoloStar 100 UNIT/ML Subcutaneous Solution Pen-injector 34 Solution hs for 90 days Quantity: 5 {Pre-filled_Pen_Syringe} Refills: 3 Ordered:09-Jul-2017 Jeb Noguera DO, DO, Kathleen Start : 09-Jul-2017 Active Comments:PENS, PENS Lisinopril 20 MG Oral Tablet 1 (one) Tablet bid for 90 days Quantity: 90 {Tablet} Refills: 3 Ordered:09-Jul-2017 Jeb Noguera DO, DO, Kathleen Start : 09-Jul-2017 Active MetFORMIN HCl ER 500 MG Oral Tablet Extended Release 24 Hour 1 tab Tablet ER 24HR bid for 90 days Quantity: 180 {Tablet} Refills: 3 Ordered:23-Nov-2017 Jeb Noguera DO, DO, Kathleen Start : 23-Nov-2017 Active Metoprolol Succinate ER 25 MG Oral Tablet Extended Release 24 Hour 1 (one) Tablet qd for 0 days Quantity: 90 {Tablet} Refills: 3 Ordered:04-Apr-2017 Jeb Noguera DO, DO, Kathleen Start : 04-Apr-2017 Active PARoxetine HCl 30 MG Oral Tablet 1 (one) Tablet q evening for 90 days Quantity: 90 {Tablet} Refills: 3 Ordered:23-Nov-2017 Jeb Noguera DO, DO, Kathleen Start : 23-Nov-2017 Active Dispense as Written Sinemet 25-100 MG Oral Tablet 2 tabs Tablet tid for 90 days Quantity: 360 {Tablet} Refills: 1 Ordered:07-Jan-2018 Jeb Noguera DO, DO, Kathleen Start : 07-Jan-2018 Active VITAMIN C, 500MG (Oral Tablet) 1 [...] Start : 18-Nov-2014 End : 24-Feb-2015 Discontinued Comments:[facility] food in am TRADJENNIFERNTA, 5MG (Oral Tablet) 1 (one) Tablet qd [...] Status: Inactive as of 17-Dec-2013 Vaccine for hdbitmwsag-nunbros-gvcuctbpw with poliomyelitis (Z23, V06.3) Status: Inactive as of 04-Dec-2012 Procedures Procedure Dates Details Cataract Removal, Insert Prosthetic Lens Completed Comments: both eyes- 2011 Colon Cancer Completed Comments: 1 foot of colon removed-2002 colonscopy- 12/11- DR Mendoza Completed Diabetic Retinopathy Completed Comments: 2011 Gallbladder Surgery - Laparoscopic Completed Comments: 1994 Date Value Details 19-Oct-2017 SCREENING MAMM (CAD), BILAT Result: Comments: See Note; NOTES: [facility] Imaging Services [address] [place] [address] SCREENING MAMM (CAD), BILAT MR#: [id number] Acct: [id number] Name: EUGENE OWENS Rep #: [id number] : 1945 F 71 From: Matt Cortes MD PCP: Kathy Noguera DO Status: REG CL Study: SCREENING MAMM (CAD), BILAT Date of Exam: 10/19/17 Exam# [id number] Ordering Dr: Kathy Noguera DO MAMMOGRAPHY - [...] [facility] days. Approximately 10% of breast cancers are not detected by mammography. A normal mammogram should not delay biopsy of a clinically suspicious abnormality. [id number] Elect ronically Signed: Matt Cortes MD at 14:43 EDT Tel [phone], Service support , CC: Kathy Noguera DO Social Professionals: Signed 20-Jun-2017 Abdomen WITH IV Contrast Result: Comments: See Note; NOTES: [facility] Imaging Services [address] [place] [address] Abdomen WITH IV Contrast MR#: [id number] Acct: [id number] Name: EUGENE OWENS Rep #: [id number] : 1945 F 71 From: Levar Meadows MD PCP: Kathy Noguera DO Status: REG CLI Study: Abdomen WITH IV Contrast Date of Exam: 06/20/17 Exam# [id number] Ordering Dr: Kathy Noguera DO STUDY: C [...] umbilicus is only partially included in the pcmst-kn-ybto, but again appears to contain nondistended small [...] Service support , CC: Kathy Noguera DO Social Professionals: Signed 04-Oct-2016 SCREENING MAMM (CAD), BILAT Result: Comments: See Note; NOTES: [facility] Services [address] [place] [address] Verdana 4d SCREENING MAMM (CAD), BILAT MR#: [id number] Acct: [id number] Name: EUGENE OWENS Rep #: [id number] : 1945 F 70 From: Levar Cavanaugh MD PCP: Kathy Noguera DO Status: [facility] CL Study: SCREENING MAMM (CAD), BILAT Date of Exam: 10/04/16 Exam# [id number] Ordering Dr: Americo Noguera DO MAMMOGRAPHY - [...] delay biopsy of a clinically suspicious abnormality. [id number] Electronically Signed: Kevin Cavanaugh MD at 15:21 EDT , Service support , Fa x [phone] CC: Kathy Noguera DO Social Professionals: Signed 13-Jul-2016 DXA BONE DENS W/VERT FX ASMT Result: Comments: See Note; NOTES: [facility] Services [address] [place] [address] Verdana 4d DXA BONE DENS W/VERT FX ASMT MR#: [id number] Acct: [id number] Name: EUGENE OWENS Rep #: [id number] : 1945 F 70 From: Matt Cortes MD PCP: Kathy Noguera DO Status: REG CLI Study: DXA BONE DENS W/VERT FX ASMT Date of Exam: 07/13/16 Exam# [id number] Ordering Dr: Kathy Noguera DO STUDY: DUAL [...] Matt Cortes MD at 13:30 EDT Tel [phone], Service support , CC: Kathy Noguera DO Social Professionals: Signed 01-Oct-2015 Bilat Scrn Digital AND CAD Result: Comments: See Note; NOTES: [facility] Imaging Services [address] [place] [address] Verdana 4d Bilat Scrn Digital AND CAD MR#: [id number] Acct: [id number] Name: EUGENE OWENS Rep #: [id number] : 1945 F 69 From: Narciso Eisenberg MD PCP: Emmanuelle Quiñonez DO Status: REG CLI Study: Bilat Scrn Digital AND CAD Date of Exam: 10/01/15 Exam# [id number] Ordering Dr: Emmanuelle Roper DO MAMMOGRAPHY - [...] delay biopsy of a clinically suspicious abnormality. [id number] Electronically Signed: Narciso Eisenberg MD at 17:54 EDT Te l , Service support [phone], CC: Emmanuelle Quiñonez DO Social Professionals: Signed 19-Sep-2015 Carotid Duplex Ultrasound Result: Comments: See Note; NOTES: [facility] Cardiovascular Services [address] [place] [address] Carotid Duplex Ultrasound 09/17/15 0801 MR#: [id number] Acct: [id number] Name: EUGENE OWENS Rep #: [id number] : 1945 69 From: Adria Kim MD [...] in the left bulb. Procedure Carotid Duplex 37033. Exam performe d in department. Interpretation Summary Mild (<50%) stenosis right extracranial internal carotid. Mild (<50%) stenosis left extracranial internal carotid. Flow within the vertebral arteries is antegrade bilaterally. Ordering Physician: Emmanuelle Quiñonez Referring Physician: Emmanuelle Quiñonez Performed By: Lina Dumont, CARISSA, RVT 09/19/152156 Date Adria Kim MD CC: Emmanuelle Quiñonez DO Date Dictated: 09/17/15 0801 Date Transcribed: 09/19/152156 Social Professionals: Signed 17-Sep-2015 Abdomen/Pelvis WITH Contrast Result: Comments: See Note; NOTES: [facility] Imaging Services [address] [place] [address] Verdana 4d Abdomen/Pelvis WITH Contrast MR#: [id number] Acct: [id number] Name : EUGENE OWENS Rep #: [id number] : 1945 F 69 From: Matt Cortes MD PCP: Emmanuelle Quiñonez DO Status: REG CLI Study: Abdomen/Pelvis WITH Contrast Date of Exam: 09/17/15 Exam# [id number] Genevieve vasquez Dr: Emmanuelle Quiñonez DO STUDY: [...] Cortes MD at 8:43 EDT Tel [phone], Service support [phone], CC: Emmanuelle Quiñonez DO Social Professionals: Signed 20-Aug-2015 Brain W/WO Contrast Result: Comments: See Note; NOTES: [facility] Imaging Services [address] [place] [address] Verdana 4d Brain W/WO Contrast MR#: [id number] Acct: [id number] Name: SA LAURO OWENS F Rep #: [id number] : 1945 F 69 From: Narciso Eisenberg MD PCP: Emmanuelle Quiñonez DO Status: REG CLI Study: Brain W/WO Contrast Date of Exam: 08/20/15 Exam# [id number] Ordering Dr: Ashu Bhatti MD STUDY: MRI [...] at 15:23 EDT Tel , Service support [phone], CC: Emmanuelle Quiñonez DO; Ashu Bhatti MD Social Professionals: Signed 20-Aug-2015 Brain W/WO Contrast Result: Comments: See Note; NOTES: [facility] Services [address] [place] [address] Jeromedana 4d Brain W/WO Contrast MR#: [id number] Acct: [id number] Name: SA RA Nohemi OWENS Rep #: [id number] : 1945 F 69 From: Narciso Eisenberg MD PCP: Emmanuelle Quiñonez DO Status: REG CLI Study: Brain W/WO Contrast Date of Exam: 08/20/15 Exam# [id number] Ordering Dr: Ashu Bhatti MD ADDENDUM by Narciso Eisenberg MD on 09/05/15 at 0120 ADDENDUM REASON FOR EXAM: Female, 69 y ears old. Cephalgia Electronically Signed: Narciso Eisenberg MD at 1:20 EDT Tel , Service support [phone], 09/05/15 0120 Date c c: Emmanuelle Quiñonez [...] at 15:23 EDT Tel , Service support [phone], CC: Emmanuelle Quiñonez DO; Ashu Bhatti MD Social Professionals: Signed 28-Sep-2014 Carotid Duplex Ultrasound Result: Comments: See Note; NOTES: [facility]ovascular Services [address] [place] [address] Carotid Duplex Ultrasound 09/28/14 1657 MR#: [id number] Acct: [id number] Na me: EUGENE OWENS Rep #: [id number] : 1945 68 From: Adria Kim MD Attending Dr: Emmanuelle Quiñonez DO Status: REG CLI Ordering Dr: Emmanuelle Quiñonez DO Date: 09/28/14 Location: BI Sex: F C Admitted: Rt. Velocities/BP Lt. [...] left vertebral artery. Pr ocedure Carotid Duplex 65089. The exam was diagnostic. Exam performed in department. Interpretation Summary Mild (<50%) stenosis right extracranial internal carotid. Mild (<50%) sten osis left extracranial internal carotid. Flow within the vertebral arteries is antegrade bilaterally. _ Ordering Physician: Emmanuelle Quiñonez Performed By: COLETTE Valero 09/28/142025 Date Adria Kim MD CC: Emmanuelle Quiñonez DO Date Dictated: 09/28/14 1657 Date Transcribed: 09/28/142025 Social Professionals: Signed 28-Sep-2014 Bilat Scrn Digital AND CAD Result: Comments: See Note; NOTES: [facility] Imaging Services [address] [place] [address] Breast Imaging Report MR#: [id number] Acct: [id number] Name: EUGENE OWENS Rep #: [id number] : 1945 F 68 From: Matt Cortes MD PCP: Emmanuelle Quiñonez DO Status: REG CLI Study: Bilat Scrn Digital AND CAD Date of Exam: 09/28/14 Exam# [id number] Ordering Dr: Emmanuelle Quiñonez DO M AMMOGRAPHY [...] Signed: Tay Ignacio at 12:26 EDT Tel [phone], Service support [phone], CC: Emmanuelle Quiñonez DO Social Professionals: Signed 29-Sep-2013 Brain W/WO Contrast Result: Comments: See Note; NOTES: [facility] Imaging Services [address] [place] [address] MRI Report MR#: [id number] Acct: [id number] Name: ROMANEUGENE F Rep #: [id number] : 1945 F 67 From: Jess Rousseau MD PCP: Emmanuelle Quiñonez DO Status: REG CLI Study: Brain W/WO Contrast Date of Exam: 09/29/13 Exam# [id number] Ordering Dr: Josephine Stacy CONTROL TOWER RADIO OPERATOR-C STUDY: MRI BRAIN WITH AND WITHOUT CONTRAST [...] at 17:54 EDT Tel , Service support [phone], CC: Josephine Quiñonez DO Social Professionals: Signed 24-Sep-2013 Bilovidio Barroso Digital & CAD Result: Comments: See Note; NOTES: [facility] Services [address] [place] [address] Breast Imaging Report MR#: [id number] Acct: [id number] Name: EUGENE OWENS Rep #: [id number] : 1945 F 67 From: Matt Cortes MD PCP: Emmanuelle Quiñonez DO Status: REG CLI Exam# [id number] Ordering Dr: Emmanuelle Quiñonez DO MAMMOGRAPHY - [...] Matt Cortes MD at 13:45 EDT Tel [phone], Service support [phone], CC: Emmanuelle Quiñonez DO Social Professionals: Signed 06-Sep-2013 Electroencephalogram Result: Comments: See Note; NOTES: [facility] Pulmonary Services/Neurology [address] [place] [address] Electroencephalogram (EEG) MR#: [id number] Acct: [id number] Name: SA RA Nohemi WOENS Rep #: [id number] : 1945 67 From: Ashu Bhatti MD [...] Dictated: 09/05/13 1408 Date Transcribed: 09/05/13 1558 Social Professionals: HARPER Signed 05-Sep-2013 Brain/Head W/WO Contrast Result: Comments: See Note; NOTES: [facility] Imaging Services [address] [place] [address] CAT Scan Report MR#: [id number] Acct: [id number] Name: EUGENE OWENS Rep #: [id number] : 1945 F 67 From: Alley Joe MD PCP: Emmanuelle Quiñonez DO Status: REG CLI Study: Brain/Head W/WO Contrast Date of Exam: 09/05/13 Exam# [id number] Ordering Dr: Emmanuelle Quiñonez DO STUDY: CT [...] Service support , CC: Emmanuelle Quiñonez DO Social Professionals: Signed 05-Aug-2013 Brain/Head without Contrast Result: Comments: See Note; NOTES: [facility] Imaging Services [address] [place] [address] CAT Scan Report MR#: [id number] Acct: [id number] Name: EUGENE OWENS Rep #: [id number] : 1945 F 67 From: Matt Cortes MD PCP: Emmanuelle Quiñonez DO Status: REG ER Study: Brain/Head without Contrast Date of Exam: 08/05/13 Exam# [id number] Ordering Dr: Frank Lane MD STUDY: CT [...] Matt Cortes MD at 15:35 EDT Tel [phone], Service support [phone], F ax [phone] CC: Emmanuelle Quiñonez DO; Frank Lane MD Social Professionals: Signed 05-Aug-2013 Chest PA and Lateral Result: Comments: See Note; NOTES: [facility] Imaging Services [address] [place] [address] Radiology Report MR#: [id number] Acct: [id number] Name: EUGENE OWENS Rep #: [id number] : 1945 F 67 From: Matt Cortes MD PCP: Emmanuelle Quiñonez DO Status: REG ER Study: Chest PA and Lateral Date of Exam: 08/05/13 Exam# [id number] Ordering Dr: Frank Lane MD STUDY: X-RAY [...] Matt Cortes MD at 15:38 EDT Tel [phone], Service support [phone], RAD/Chest PA and Lateral IMPRESSION: No acute abnormality is present. Electronically Signed: Matt Cortes MD at 15:38 EDT Tel [phone], Service support , CC: Emmanuelle Quiñonez DO; Frank Lane MD Social Professionals: Signed Family History Unknown Family Member Name [...] smoker Vital Signs Date Test Result Details 23-Kgd-687064:09 Pulse 111 /min Comments: Pattern: Regular Respiration [...] kg/m2 Body Surface Area Calculated 1.89 m2 85-Rpc-445002:00 Temperature 98.1 f Pulse 94 /min Comments: [...] 1.85 m2 Results Date Description Value Details :04 HgA1C , Office (35612) HgA1C , Office 6.9 % (Normal) Range: 4.6 - 7.1 :04 Blood Glucose , Office (77875) Blood Glucose , Office 157 (Normal) 42-Sgr-78580:37 Pathology Report Comments: PERFORMED BY: MARCIE Mcmillan Delavan Fnrj6382 [facility] [id number] BY: [facility] Dermatopathology [address] [place] [address] [id number] 670Clinical Information: [id number] See MATER Comments: Material submitted: .RIGHT CHEEKClinical history: .SKIN LESION RAISED IRREGULAR BLEEDING/SCABBED 1/2 Note (Normal) Diagnosis:IRRITATED AND INFLAMED SEBORRHEIC KERATOSIS WITH VERRUCOUSFEATURES./08/30/2017 Electronically signed: .Hiro Sims MD, DermatopathologistGross description: .RECEIVED IN FORMALIN LABELED EUGENE OWENS IS A DOE VARELA CRUSTY SKIN NODULE (8X 6 X 5 MM). INKED AT THE MARGIN OF RESECTION, SECTIONED AND ENTIRELYSUBMITTED IN ONE CASSETTE.DKS/SMIPathologist provided ICD-10:L82.0CPT .630537 4-Jqv-005721:04 HgA1C , Office (14248) HgA1C , Office 6.5 % (Normal) Range: 4.6 - 7.1 4-Zyn-746068:04 Blood Glucose , Office (54848) Blood Glucose , Office 119 (Normal) 03-Jul-20178:40 Microscopic Examination Comments: PATIENT WAS FASTINGPERFORMED BY: Szl.it Fyxmmx4069 [facility] [id number] Bacteria Few (Normal) Mucus Threads Present (Normal) Crystal Type Amorphous Sediment (Normal) Crystals Present (Abnormal) Epithelial Cells (non renal) 0-10 {/hpf} (Normal) Range: 0 - 10 RBC 0-2 {/hpf} (Normal) Range: 0 - 2 WBC 0-5 {/hpf} (Normal) Range: 0 - 5 74-Pgt-941102:05 CREATININE FINGERSTICK Comments: [facility] LaboratoryPoint [facility] Hrez[address] [place] [address] EGFR WB > 60.0000 mL/min (Normal) CREATININE WB 0.6 mg/dL (Normal) Range: 0.55-1.02 1-Uil-479065:08 Urinalysis, Office (75076) UA - LEUKOCYTE ESTERASE Small (Normal) UA - NITRITE Negative (Normal) URINE UROBILINGN GLORY TIMED Normal mg/dL (Normal) UA - PROTEIN 100 mg/dL (Normal) UA - PH 6 (Abnormal) UA - BLOOD Non Hemolyzed Trace (Normal) UA - SPECIFIC GRAVITY 1.020 (Normal) UA - KETONES 15 mg/dL (Abnormal) UA - BILIRUBIN Negative (Normal) UA - GLUCOSE Negative (Normal) 7-Kbz-332845:26 URINE GISELLE CULTURE-IDENTIFICATN Comments: PATIENT NOT FASTINGPERFORMED BY: [facility]6370 [facility] [id number] Information: SRC:UC (39161) Result 1 MUG (Normal) Comments: Mixed urogenital flora10,000-25,000 colony forming units per mL Urine Final report (Normal) Culture,Comprehensive 4-Jqw-243286:51 HgA1C , Office (83161) HgA1C , Office 6.7 % (Normal) Range: 4.6 - 7.1 :51 Blood Glucose , Office (55760) Blood Glucose , Office 225 (Normal) :40 TSH (96712) Comments: PATIENT WAS FASTINGPERFORMED BY: [facility]6370 [facility] [id number] TSH 3.800 {uIU/mL} (Normal) Range: 0.450-4.500 :40 URINALYSIS, W/ MICRO (96305) Comments: PATIENT WAS FASTINGPERFORMED BY: [facility] CorporationUniversity Health Lakewood Medical CenterHscjqq7227 [facility] [id number] Microscopic Examination See below: (Normal) Comments: Microscopic was indicated and was performed. Nitrite, Urine Negative (Normal) Urobilinogen,Semi-Qn 0.2 mg/dL (Normal) Range: 0.2-1.0 Bilirubin Negative (Normal) Occult Blood Negative (Normal) Ketones Negative (Normal) Glucose Negative (Normal) Protein 1+ (Abnormal) WBC Esterase 1+ (Abnormal) Appearance Clear (Normal) Urine-Color Yellow (Normal) pH 7.5 (Normal) Range: 5.0-7.5 Specific [place] 1.018 (Normal) Range: 1.005-1.030 :40 MICROALBUMIN: CREATININE RATIO Comments: PATIENT WAS FASTINGPERFORMED BY: [facility]up[facility] CorporationUniversity Health Lakewood Medical CenterPfwmgr9409 [facility] [id number] (46452) AND (69297) Alb/Creat Ratio 557.7 {mg/g_creat} (Abnormal) Range: 0.0-30.0 Albumin, Urine 187.4 ug/mL (Normal) Creatinine, Urine 33.6 mg/dL (Normal) :40 METABOLIC PANEL, COMPREHENSIVE Comments: PATIENT WAS FASTINGPERFORMED BY: [facility] CorporationForest Health Medical Center6370 [facility] [id number] (03086) ALT (SGPT) 6 [iU]/L (Normal) Range: 0-32 [...] 8-27 Glucose 80 mg/dL (Normal) Range: 65-99 03-Jul-20178:40 LIPID PANEL (21321) Comments: PATIENT WAS FASTINGPERFORMED BY: [employer] LabCoSt. Francis Medical CenterSnljyv9687 [facility] [id number] LDL/HDL Ratio 0.9 {ratio} (Normal) Range: 0.0-3.2 [...] Range: 100-199 :40 CBC W/AUTO DIFF WBC (72904) Comments: PATIENT WAS FASTINGPERFORMED BY: LabCo Tlizjo6560 [facility] [id number] Immature Grans (Abs) 0.0 {x10E3/uL} (Normal) Range: [...] 10.8 {x10E3/uL} (Normal) Range: 3.4-10.8 03-Jul-20178:40 CALCIFIDIOL (41286) VIT D 25 Comments: PATIENT WAS FASTINGPERFORMED BY: [facility]up[facility] CorporationForest Health Medical Center6370 [facility] [id number]; ov 07/09 Vitamin D, 25-Hydroxy 13.6 ng/mL (Abnormal) Range: 30.0-100.0 Comments: Vitamin D deficiency has been defined by the [place] of[place]icine and an Endocrine Society practice guideline as alevel of serum 25-OH vitamin D less than 20 ng/mL (1,2).The Endocrine Society went on to further define vitamin Dinsufficiency as a level between 21 and 29 ng/mL (2).1. IOM ([place] of Medicine). 2010. Dietary reference intakes for calcium and D. [place]: The National AcademJustOne Database Inc. Press.2. Alma Delia MF, Ru FOSS, Valery HARPER, et al. Evaluation, treatment, and prevention of vitamin D deficiency: an Endocrine Society clinical practice guideline. JCEM. 2010; 96(7):1911-30. :06 HgA1C , Office (42755) HgA1C , Office 6.4 % (Normal) Range: 4.6 - 7.1 :06 Blood Glucose , Office (68237) Blood Glucose , Office 235 (Normal) :39 Microscopic Examination Comments: PATIENT NOT FASTINGPERFORMED BY: [employer]ites70 [facility] [id number] Bacteria Moderate (Abnormal) Mucus Threads Present (Normal) Crystal Type Amorphous Sediment (Normal) Comments: Calcium Oxalate Crystals Present (Abnormal) Cast Type Hyaline casts (Normal) Casts Present {/lpf} (Abnormal) Epithelial Cells (non renal) >10 {/hpf} (Abnormal) Range: 0 - 10 RBC 3-10 {/hpf} (Abnormal) Range: 0 - 2 WBC >30 {/hpf} (Abnormal) Range: 0 - 5 :37 LIPID PANEL (39834) Comments: PATIENT WAS FASTINGPERFORMED BY: [employer]70 [facility] [id number] LDL/HDL Ratio 1.1 {ratio_units} (Normal) Range: 0.0-3.2 [...] FUNCTION PANEL Comments: PATIENT WAS FASTINGPERFORMED BY: Wickr70 [facility] [id number]; OV 12/29 (15989) ALT (SGPT) 7 [iU]/L (Normal) Range: 0-32 AST (SGOT) 12 [iU]/L (Normal) Range: 0-40 Alkaline Phosphatase, S 92 [iU]/L (Normal) Range: 39-117 Bilirubin, Direct 0.17 mg/dL (Normal) Range: 0.00-0.40 Bilirubin, Total 0.6 mg/dL (Normal) Range: 0.0-1.2 Albumin, Serum 4.1 g/dL (Normal) Range: 3.5-4.8 Protein, Total, Serum 7.4 g/dL (Normal) Range: 6.0-8.5 :35 HgA1C , Office (79001) HgA1C , Office 6.2 % (Normal) Range: 4.6 - 7.1 :35 Blood Glucose , Office (43395) Blood Glucose , Office 124 (Normal) :31 TSH (19237) Comments: PATIENT WAS FASTINGPERFORMED BY: Szl.it Dzxnhf6727 [facility] [id number] TSH 2.470 {uIU/mL} (Normal) Range: 0.450-4.500 :39 URINALYSIS, W/ MICRO (88463) Comments: PATIENT NOT FASTINGPERFORMED BY: Zbird Huqoyc7679 [facility] [id number] Microscopic Examination See below: (Normal) Comments: Microscopic was indicated and was performed. Nitrite, Urine Negative (Normal) Urobilinogen,Semi-Qn 1.0 mg/dL (Normal) Range: 0.2-1.0 Bilirubin Negative (Normal) Occult Blood Negative (Normal) Ketones Trace (Abnormal) Glucose Negative (Normal) Protein 3+ (Abnormal) WBC Esterase 2+ (Abnormal) Appearance Cloudy (Abnormal) Urine-Color Yellow (Normal) pH 6.0 (Normal) Range: 5.0-7.5 Specific [place] >=1.030 (Abnormal) Range: 1.005-1.030 41-Eqe-589434:39 MICROALBUMIN: CREATININE RATIO Comments: PATIENT NOT FASTINGPERFORMED BY: Szl.itPeak Behavioral Health ServicesUhdiyt2756 [facility] [id number] (92460) AND (02358) Microalb/Creat Ratio 162.3 {mg/g_creat} (Abnormal) Range: 0.0-30.0 Microalbumin, Urine 573.6 ug/mL (Normal) Comments: Results confirmed ondilution. Creatinine, Urine 353.4 mg/dL (Normal) 66-Xph-973386:31 METABOLIC PANEL, COMPREHENSIVE Comments: PATIENT WAS FASTINGPERFORMED BY: Wickr70 [facility] [id number] (29230) ALT (SGPT) 8 [iU]/L (Normal) Range: 0-32 [...] Glucose, Serum 68 mg/dL (Normal) Range: 65-99 :31 CBC W/AUTO DIFF WBC (53077) Comments: PATIENT WAS FASTINGPERFORMED BY: Szl.it Gtkbkl9697 [facility] [id number] Immature Grans (Abs) 0.0 {x10E3/uL} (Normal) Range: [...] 3.77-5.28 WBC 10.7 {x10E3/uL} (Normal) Range: 3.4-10.8 :31 LIPID PANEL (62739) Comments: PATIENT WAS FASTINGPERFORMED BY: Szl.it Efmtdd3140 [facility] [id number] LDL/HDL Ratio 2.6 {ratio_units} (Normal) Range: 0.0-3.2 Comments: LDL/HDL Ratio Men Women 1/2 Avg.Risk 1.0 1.5 Av g.Risk 3.6 3.2 2X Avg.Risk 6.2 5.0 3X Avg.Risk 8.0 6.1 LDL Cholesterol Calc 108 mg/dL (Abnormal) Range: 0-99 VLDL Cholesterol Pan 28 mg/dL (Normal) Range: 5-40 HDL Cholesterol 42 mg/dL (Normal) Triglycerides 142 mg/dL (Normal) Range: 0-149 Cholesterol, Total 178 mg/dL (Normal) Range: 100-199 :31 WXISG-YWUECIMGLIP-EMFRJ (27426) Comments: PATIENT WAS FASTINGPERFORMED BY: [employer]c6370 [facility] [place] [id number] AFP, Serum, Tumor Marker <0.7 ng/mL (Normal) Range: 0.0-8.3 Comments: Nadine ECLIA methodology :31 CALCIFIDIOL (64683) VIT D 25 Comments: PATIENT WAS FASTINGPERFORMED BY: [employer] [facility] Dyoiox5673 [address] [facility] [place] [id number] Vitamin D, 25-Hydroxy 20.5 ng/mL (Abnormal) Range: 30.0-100.0 Comments: Vitamin D deficiency has been defined by the [place] of[place]icine and an Endocrine Society practice guideline as alevel of serum 25-OH vitamin D less than 20 ng/mL (1,2).The Endocrine Society went on to further define vitamin Dinsufficiency as a level between 21 and 29 ng/mL (2).1. IOM ([place] of Medicine). 2010. Dietary reference intakes for calcium and D. [place]: The National Academies Press.2. Alma Delia MF, Ru NC, Valery HARPER, et al. Evaluation, treatment, and prevention of vitamin D deficiency: an Endocrine Society clinical practice guideline. JCEM. 2010; 96(7):1911-30. :34 HgA1C , Office (73754) HgA1C , Office 6.2 % (Normal) Range: 4.6 - 7.1 72-Dks-629723:34 Blood Glucose , Office (50799) Blood Glucose , Office 147 (Normal) 70-Bmf-914475:02 HgA1C , Office (35175) HgA1C , Office 6.4 % (Normal) Range: 4.6 - 7.1 3-Hlp-639037:07 EARKU-GMCHBPYEANE-SGMIG (67812) Comments: PATIENT WAS FASTINGPERFORMED BY: [employer]c[address] [place] [id number] AFP, Serum, Tumor Marker 1.0 ng/mL (Normal) Range: 0.0-8.3 Comments: Nadine ECLIA methodology 6-Qtb-849218:07 MICROALBUMIN: CREATININE RATIO Comments: PATIENT WAS FASTINGPERFORMED BY: [employer]c6370 CorrectNetblin [place] [id number] (50573) AND (49296) Microalb/Creat Ratio 454.4 {mg/g_creat} (Abnormal) Range: 0.0-30.0 Microalbumin, Urine 500.8 ug/mL (Normal) Comments: Results confirmed ondilution. Creatinine, Urine 110.2 mg/dL (Normal) 7-Xtk-497061:07 VITAMIN B12 AND FOLATES Comments: PATIENT WAS FASTINGPERFORMED BY: [employer]6370 [facility]bl[place] [id number] (76136) Folate (Folic Acid), Serum 12.7 ng/mL (Normal) Comments: A serum folate concentration of less than 3.1 ng/mL isconsidered to represent clinical deficiency. Vitamin B12 407 pg/mL (Normal) Range: 211-946 :07 CALCIFEDIOL (07462) Comments: PATIENT WAS FASTINGPERFORMED BY: [employer] Ogxzdf7127 [address] [place] [id number] Vitamin D, 25-Hydroxy 15.3 ng/mL (Abnormal) Range: 30.0-100.0 Comments: Vitamin D deficiency has been defined by the [place] of[place] and an Endocrine Society practice guideline as alevel of serum 25-OH vitamin D less than 20 ng/mL (1,2).The Endocrine Society went on to further define vitamin Dinsufficiency as a level between 21 and 29 ng/mL (2).1. IOM ([place] of [employer]). 2010. Dietary reference intakes for calcium and D. [place]: The National Academies Press.2. Alma Delia MF, Ru [place], Valery HARPER, et al. Evaluation, treatment, and prevention of vitamin D deficiency: an Endocrine Society clinical practice guideline. JCEM. 2010; 96(7):1911-30. :07 TSH (THYROID STIMULATING Comments: PATIENT WAS FASTINGPERFORMED BY: [employer] [facility] [id number] HORMONE) (42396) TSH 2.280 {uIU/mL} (Normal) Range: 0.450-4.500 :07 LIPID PANEL (77197) Comments: PATIENT WAS FASTINGPERFORMED BY: [employer]6370 [facility] [id number] LDL/HDL Ratio 2.4 {ratio_units} (Normal) Range: 0.0-3.2 Comments: LDL/HDL Ratio Men Women 1/2 Avg.Risk 1.0 1.5 Av g.Risk 3.6 3.2 2X Avg.Risk 6.2 5.0 3X Avg.Risk 8.0 6.1 LDL Cholesterol Calc 115 mg/dL (Abnormal) Range: 0-99 VLDL Cholesterol Pan 28 mg/dL (Normal) Range: 5-40 HDL Cholesterol 48 mg/dL (Normal) Triglycerides 140 mg/dL (Normal) Range: 0-149 Cholesterol, Total 191 mg/dL (Normal) Range: 100-199 :07 METABOLIC PANEL, COMPREHENSIVE Comments: PATIENT WAS FASTINGPERFORMED BY: [employer] Kbmcjb6077 [facility] [id number] (61037) ALT (SGPT) 7 [iU]/L (Normal) Range: 0-32 [...] Glucose, Serum 102 mg/dL (Abnormal) Range: 65-99 0-Kpa-339467:07 CBC, PLATELETS & AUT DIFF Comments: PATIENT WAS FASTINGPERFORMED BY: [facility] Lkafhy8360 [facility] [id number] (71448) Immature Grans (Abs) 0.0 {x10E3/uL} (Normal) Range: [...] (Normal) Range: 3.4-10.8 :24 HgA1C , Office (61221) HgA1C , Office 6.0 % (Normal) Range: 4.6 - 7.1 :24 Blood Glucose , Office (01838) Blood Glucose , Office 125 (Normal) :38 HEPATITIS PANEL (93248) Comments: PATIENT WAS FASTINGPERFORMED BY: [employer] Montes [facility] [id number] Hep C Virus Ab 0.2 {s/co_ratio} (Normal) Range: 0.0-0.9 Comments: Negative: < 0.8 Indeterminate: 0.8 - 0.9 Positive: > 0.9 . The CDC recommends that a positive HCV antibody result be followed up with a HCV Nucleic Acid Amplification test (097895). Hep B Core Ab, IgM Negative (Normal) HBsAg Screen Negative (Normal) Hep A Ab, IgM Negative (Normal) :38 XJHJD-NCGUREWPOZG-QCGSV (22091) Comments: PATIENT WAS FASTINGPERFORMED BY: [employer] Cgjfjq4142 [facility] [id number] AFP, Serum, Tumor Marker 0.9 ng/mL (Normal) Range: 0.0-8.3 Comments: Nadine ECLIA methodology :38 HEPATIC FUNCTION PANEL Comments: PATIENT WAS FASTINGPERFORMED BY: [facility]6370 [facility] [id number] Information: [id number] DL (33312) ALT (SGPT) 7 [iU]/L (Normal) Range: 0-32 AST (SGOT) 14 [iU]/L (Normal) Range: 0-40 Alkaline Phosphatase, S 113 [iU]/L (Normal) Range: 39-117 Bilirubin, Direct 0.10 mg/dL (Normal) Range: 0.00-0.40 Bilirubin, Total 0.4 mg/dL (Normal) Range: 0.0-1.2 Albumin, Serum 4.1 g/dL (Normal) Range: 3.5-4.8 Protein, Total, Serum 7.5 g/dL (Normal) Range: 6.0-8.5 :00 CBC W/AUTO DIFF WBC Comments: PATIENT WAS FASTINGPERFORMED BY: [facility] [id number] Information: [id number] (46279) Immature Grans (Abs) 0.0 {x10E3/uL} (Normal) Range: [...] 3.77-5.28 WBC 9.5 {x10E3/uL} (Normal) Range: 3.4-10.8 8-Yxv-159866:00 MICROALBUMIN: CREATININE RATIO Comments: PATIENT WAS FASTINGPERFORMED BY: [facility] CenterLhbqvf4432 [facility] [id number] (09835) AND (55451) Microalb/Creat Ratio 206.7 {mg/g_creat} (Abnormal) Range: 0.0-30.0 Comments: ADDENDA: apt today Microalbumin, Urine 46.1 ug/mL (Normal) Creatinine, Urine 22.3 mg/dL (Normal) 3-Dix-221017:00 METABOLIC PANEL, COMPREHENSIVE Comments: PATIENT WAS FASTINGPERFORMED BY: [facility] Qmugxx9241 [facility] [id number] (03506) ALT (SGPT) 6 [iU]/L (Normal) Range: 0-32 [...] Glucose, Serum 98 mg/dL (Normal) Range: 65-99 2-Bgd-916201:00 LIPID PANEL (74489) Comments: PATIENT WAS FASTINGPERFORMED BY: [facility]CoSt[facility] CenterFmfdcz1802 [facility] [id number] LDL/HDL Ratio 2.6 {ratio_units} (Normal) Range: 0.0-3.2 [...] Cholesterol, Total 192 mg/dL (Normal) Range: 100-199 81-Iop-259363:01 Serum Creatinine AND GFR Comments: [facility] [address] [place], [place], [address] EST GFR - AA 76 mL/min (Normal) Comments: GFR Calc EST GFR 63 mL/min (Normal) Comments: Non- GFR Calc CREAT,SERUM 0.93 mg/dL (Normal) Range: 0.55-1.20 Comments: The validity of the calculated GFR AND GFRAA in patients over70 years has not been determined. Clinical correlation isessential. 93-Wnu-554672:22 HgA1C , Office (27270) HgA1C , Office 6.9 % (Normal) Range: 4.6 - 7.1 :47 Blood Glucose , Office (08508) Blood Glucose , Office 284 (Normal) :47 HgA1C , Office (85139) HgA1C , Office 7.1 % (Normal) Range: 4.6 - 7.1 78-Brx-812358:18 Microscopic Examination Comments: PATIENT NOT FASTINGPERFORMED BY: [facility] [id number] Bacteria Moderate (Abnormal) Mucus Threads Present (Normal) Crystal Type Amorphous Sediment (Normal) Crystals Present (Abnormal) Epithelial Cells (non renal) >10 {/hpf} (Abnormal) Range: 0 - 10 RBC 0-2 {/hpf} (Normal) Range: 0 - 2 WBC 6-10 {/hpf} (Abnormal) Range: 0 - 5 :18 URINALYSIS, W/ MICRO (81036) Comments: PATIENT NOT FASTINGPERFORMED BY: [facility] [id number] Microscopic Examination See below: (Normal) Comments: Microscopic was indicated and was performed. Nitrite, Urine Negative (Normal) Urobilinogen,Semi-Qn 0.2 mg/dL (Normal) Range: 0.0-1.9 Bilirubin Negative (Normal) Occult Blood Negative (Normal) Ketones Negative (Normal) Glucose Negative (Normal) Protein 2+ (Abnormal) WBC Esterase 2+ (Abnormal) Appearance Cloudy (Abnormal) Urine-Color Yellow (Normal) pH 7.0 (Normal) Range: 5.0-7.5 Specific [place] 1.014 (Normal) Range: 1.005-1.030 :18 PTT (Activated Partial Comments: PATIENT NOT FASTINGPERFORMED BY: [facility] [id number] Thromboplastin Time) (45389) aPTT 28 {sec} (Normal) Range: 24-33 Comments: This test has not been validated for monitoring unfractionated heparintherapy. aPTT-based therapeutic ranges for unfractionated heparintherapy have not been established. For general guidelines onHeparin monitoring, refer to the [facility] Directory of Services. 10-Aip-810038:18 PT (Prothrobim Time) (13540) Comments: PATIENT NOT FASTINGPERFORMED BY: [employer] Smaxjb7663 [facility] [id number] Prothrombin Time 10.3 {sec} (Normal) Range: 9.1-12.0 INR 1.0 (Normal) Range: 0.8-1.2 Comments: Reference interval is for non-anticoagulated patients. . Suggested INR therapeutic range for Vitamin K anta gonist therapy: Standard Dose (moderate intensity therapeutic range): 2.0 - 3.0 Higher intensity therapeutic range 2.5 - 3.5 72-Gtg-823552:18 MICROALBUMIN: CREATININE RATIO Comments: PATIENT NOT FASTINGPERFORMED BY: [employer] Vwfcur3817 [facility] [id number] (52160) AND (37330) Microalb/Creat Ratio 434.0 {mg/g_creat} (Abnormal) Range: 0.0-30.0 Microalbumin, Urine 427.5 ug/mL (Abnormal) Range: 0.0-17.0 Comments: Results confirmed ondilution. Creatinine, Urine 98.5 mg/dL (Normal) Range: 15.0-278.0 86-Zpw-097109:18 CBC with auto diff Comments: PATIENT NOT FASTINGPERFORMED BY: [facility].itSt[facility] CenterFemtet2456 [facility] [id number] Information: [id number] (70576) Immature Grans (Abs) 0.0 {x10E3/uL} (Normal) Range: [...] 3.77-5.28 WBC 8.4 {x10E3/uL} (Normal) Range: 3.4-10.8 80-Imv-701708:18 METABOLIC PANEL, COMPREHENSIVE Comments: PATIENT NOT FASTINGPERFORMED BY: [facility]CoSt. [facility] Medical CenterTxvwqu7253 [facility] [id number] (92102) ALT (SGPT) 9 [iU]/L (Normal) Range: 0-32 [...] Glucose, Serum 100 mg/dL (Abnormal) Range: 65-99 10-Qgn-631055:18 LIPID PANEL (01454) Comments: PATIENT NOT FASTINGPERFORMED BY: [employer]6370 [facility] [id number] LDL/HDL Ratio 2.6 {ratio_units} (Normal) Range: 0.0-3.2 [...] Cholesterol, Total 199 mg/dL (Normal) Range: 100-199 21-Xtu-884183:39 HgA1C , Office (89369) HgA1C , Office 7.6 % (Abnormal) Range: 4.6 - 7.1 06-Dsd-529899:46 Metabolic Panel, Basic Comments: PATIENT NOT FASTINGPERFORMED BY: [facility].itSt. [facility] Medical CenterEmzmdh4015 [facility] [id number] Information: [id number] (88288) Calcium, Serum 9.8 mg/dL (Normal) Range: 8.6-10.2 [...] Glucose, Serum 168 mg/dL (Abnormal) Range: 65-99 99-Qjp-440751:03 HgA1C , Office (15416) HgA1C , Office 8.9 % (Abnormal) Range: 4.6 - 7.1 12-Dyc-286271:08 TSH (52687) Comments: PATIENT NOT FASTINGPERFORMED BY: [facility]l.itSt. [facility] Medical CenterVeoknq6722 [facility] [id number] TSH 2.650 {uIU/mL} (Normal) Range: 0.450-4.500 09-Ijy-182604:08 METABOLIC PANEL, Comments: PATIENT NOT FASTINGPERFORMED BY: [facility]l.itSt. [facility] Medical CenterWhvgev7379 [facility] [id number] Information: [id number] [facility] (96526) ALT (SGPT) 11 [iU]/L (Normal) Range: 0-32 [...] Glucose, Serum 191 mg/dL (Abnormal) Range: 65-99 :03 BMP CO2 29.0 mmol/L (Normal) Range: 21.0-32.0 [...] <0.05 NEGATIVE0.06 - 0.59 AT RISK OF [place]> OR = 0.60 SUGGEST [place] :25 HgA1C , Office (43820) HgA1C , Office 7.7 % (Abnormal) Range: 4.6 - 7.1 :02 HgA1C , Office (08917) HgA1C , Office 7.8 % (Abnormal) Range: [...] Cortes M.D.December 04, 2012 at 3:28:15 PM [id number] Signed GP/GP If you are the referring physician and would like to consult with theradiologist who provided this int erpretation, please contact Brian Myles at [phone]. If this radiologist is unavailable, youwill be directed to another radiologist to assist. If you are a patient with a question regard ing this report, pleasecontactyour referring physician directly. Professional Interpretation Provided By: [employer], Phone , These documents contain legally protected [...] destructionofthese documents. Dictated on 12/04/12 1528 by Ellis Cortes MDranscribed on 12/04/12 1531 by ITS IMPORTSign by Matt Cortes MD on 12/04/12 1532 Sign by: Matt Cortes MD 45-Fqz-143927:47 BILAT SCRN DIGITAL & CAD Radiology Report [...] Grimm M.D.September 19, 2012 at 5:00:16 PM [id number] Signed RU/RU If you are the referring physician and would like to consult w [facility] theradiologist who provided this interpretation, please contact Brian Fairbanks at [phone]. If this radiologist is unavailable, youignnybe directed to another radiologist to assist. If you are a patient with a question regarding this report, pleasecontactyour referring physician directly. Professional Interpretation Provided By: [employer], Phone , These doc uments contain legally [...] the return or destructionofthese documents. Dictated on 09/19/120 by Sharath GrimmTranscribed on 09/19/122024 by ITS IMPORTSign by Sharath Grimm on 09/19/122026 Sign by: Sharath Grimm 2-Fcd-231130:16 HgA1C , Office (83510) HgA1C , Office 7.5 % (Abnormal) Range: 4.6 - 7.1 6-Zsy-069184:13 ABDOMEN/PELVIS WITH CONTRAST Radiology Report See Note [...] Cortes M.D.May 08, 2012 at 4:23:24 PM [id number] Signed GP/GP If you are the referring physic vale and would like to consult with theradiologist who provided this interpretation, please contact Brian Myles at [phone]. If this radiologist is unavailable, youwill be directed to ano ther radiologist to assist. If you are a patient with a question regarding this report, pleasecontactyour referring physician directly. Professional Interpretation Provided By: Theresa, Phone , These documents contain legally protected and confidential healthinformation intended only for the use of the individual or entity namedabove. If you are not the intended recip ient, you are hereby notifiedthatany disclosure, copying, distribution, or other use of these documents isstrictly prohibited. If you have received this information in error,pleasenotify the sender alicia suarez and arrange for the return or destructionofthese documents. Dictated on 05/08/12 1536 by Sophia ROD,Ellisranscribed on 05/08/12 1627 by ITS IMPORTSign by Sophia ROD,Matt on 05/08 1628 Sign by: Matt Cortes MD 8-Evb-515609:19 C-REACTIVE PROTEIN (78772) Comments: stat; PATIENT NOT FASTINGPERFORMED BY: [facility] Ulhjaj7760 [address] [facility] [id number] C-Reactive Protein, Quant 14.5 mg/L (Abnormal) Range: 0.0-4.9 3-Npk-482062:19 SED RATE ERYTHROCYTE (98030) Comments: stat; PATIENT NOT FASTINGPERFORMED BY: [facility] Ycyhca0939 [facility] [id number] Sedimentation Rate-Westergren 22 mm/h (Normal) Range: 0-40 3-Svc-268887:19 CBC WITH MANUAL DIFF Comments: stat; PATIENT NOT FASTINGPERFORMED BY: [facility] Vgkbfd6078 [facility] [id number] Information: ADD [id number] AND DRAW FEE 99 6791 (79759) Immature Grans (Abs) 0.0 {x10E3/uL} (Normal) Range: [...] 3.77-5.28 WBC 14.9 {x10E3/uL} (Abnormal) Range: 4.0-10.5 8-Ixr-337767:19 METABOLIC PANEL, COMPREHENSIVE Comments: PATIENT NOT FASTINGPERFORMED BY: [facility]CoSt. [facility] Medical CenterCkelph0169 [facility] [id number] (17097) ALT (SGPT) 9 [iU]/L (Normal) Range: 0-32 [...] Glucose, Serum 134 mg/dL (Abnormal) Range: 65-99 9-Oov-165267:40 URINE GISELLE CULTURE-GLORY COL Comments: PATIENT NOT FASTINGPERFORMED BY: [facility] [id number] COUNT (41984) Result 1 NG36 (Normal) Comments: No growth in 36 - 48 hours. Urine Culture,Comprehensive Final report (Normal) 4-Zgn-397456:04 Urinalysis, Office (69667) UA - BILIRUBIN Negative (Normal) UA - BLOOD Hemolyzed Trace (Normal) UA - GLUCOSE Negative (Normal) UA - KETONES Negative mg/dL (Normal) UA - LEUKOCYTE ESTERASE Large (Normal) UA - NITRITE Negative (Normal) UA - PH 6.0 (Normal) UA - PROTEIN 100 mg/dL (Normal) UA - SPECIFIC GRAVITY 1.020 (Normal) URINE UROBILINGN GLORY TIMED Normal mg/dL (Normal) 2-Pnv-225452:04 Basic Metabolic Panel (8) Comments: PERFORMED BY: [facility] [id number] Calcium, Serum 9.6 mg/dL (Normal) Range: 8.6-10.2 [...] Hunter M.D.February 01, 2012 at 7:35:17 PM [id number] Signed TT/TT If you are the referring physician and would like to consult with eradiologist who provided this interpretation, please contact Pam Allred M.D. at [phone]. If this radiologist is unavailable, youwillbe directed to another radiologist to assist. If you are a patient with a question regarding this report, pleasecontactyour referring physician directly. Professional Interpretation Provided By: [employer], Phone , These documen ts contain legally [...] estructionofthese documents. Dictated on 02/01/12722 by Dale ROD,TheresaTranscribed on 02/01/121937 by ITS IMPORTSign by Dale ROD,Pam on 02/01/121938 Sign by: Dale ROD,Pam 17-Oct-201 Osmolality 276 {mOsmol/kg} Comments: PERFORMED BY: [employer].it Wtbpwm3112 [facility] [id number] BY: [address] [id number] 213:21 (Abnormal) Range: 280-301 17-Oct-201 Osmolality, Urine 704 {mOsmol/kg} Comments: PERFORMED BY: Wickr70 [facility] [id number] BY: [address] [id number] 213:21 (Normal) Comments: 24 hr : 300 - 900 Random: 50 - 1400 After 12hr fluid restriction: >850 17-Oct-201 Sodium, Serum 131 mmol/L Comments: PERFORMED BY: [employer].it Voxjxy7734 [facility] [id number] BY: [address] [id number] 213:21 (Abnormal) Range: 134-144 17-Oct-201 Sodium, Urine 37 mmol/L Comments: PERFORMED BY: [employer].it Ylqnuc4555 [facility] [id number] BY: [address] [id number] 213:21 (Normal) 17-Oct-201 TSH 1.850 {uIU/mL} Comments: PERFORMED BY: [employer].it Kerpju5760 [facility] [id number] BY: [address] [id number] 213:21 (Normal) Range: 0.450-4.500 61-Wif-915713:20 HgA1C , Office (30980) HgA1C , Office 6.8 % (Normal) Range: 4.6 - 7.1 4-Wlc-707437:10 L/S SPINE,MIN 4 VIEWS Radiology Report See [...] Signed:Tay JacquesJanuary 08, 2012 at 8:18:09 PM [id number] Signed JL/JL If you are the referring physician and would like to consult with theradiologist who provided this interpretation, please cont act Lyn Gilmore M.D. at [phone]. If this radiologist is unavailable, you will bedirected to another radiologist to assist. If you are a patient with a question regarding this report, pleasecontactyou r referring physician directly. Professional Interpretation Provided By: [employer], Phone , These documents contain legally protected [...] the return or destructionofthese documents. Dictated on 01/08/128 by Gordo GILMORE MDanscribed on 01/08/122021 by ITS IMPORTSign by LYN GILMORE MD on 01/08/122022 Sign by: LYN GILMORE MD 0-Gla-889058:09 HIP, MIN 2 VIEWS Radiology Report See [...] Gilmore M.D.January 08, 2012 at 8:15:08 PM [id number] Signed JL/VENU If you are the referring physician and would like to consult with theradiologist who provided this interp retation, please contact Lyn Gilmore M.D. at [phone]. If this radiologist is unavailable, you will bedirected to another radiologist to assist. If you are a patient with a question regarding this rep ort, pleasecontactyour referring physician directly. Professional Interpretation Provided By: [employer], Phone , These documents contain legally protected [...] return or destructionofthese documents. Dictated on 01/08/12 1145 by MUNDO GILMORE MDIATranscribed on 01/08/122018 by ITS IMPORTSign by LYN GILMORE MD on 01/08/122019 Sign by: LYN GILMORE MD 3-Efs-679676:09 HIP, MIN 2 VIEWS Radiology Report See [...] Gilmore M.D.January 08, 2012 at 8:16:05 PM [id number] Signed JL/VENU If you are the referring physician and would like to consult with therad iologist who provided this interpretation, please contact Lyn Gilmore M.D. at [phone]. If this radiologist is unavailable, you will bedirected to another radiologist to assist. If you are a patient w ith a question regarding this report, pleasecontactyour referring physician directly. Professional Interpretation Provided By: [employer], Phone , These documents contain legally protected [...] 01/08/122019 Sign by: __ LYN GILMORE MD 56-Ndy-058784:56 Urinalysis, Office (94557) UA - BILIRUBIN Negative (Normal) UA - BLOOD Hemolyzed Trace (Normal) UA - GLUCOSE Negative (Normal) UA - KETONES Negative mg/dL (Normal) UA - LEUKOCYTE ESTERASE Small (Normal) UA - NITRITE Negative (Normal) UA - PH 6.0 (Normal) UA - PROTEIN 100 mg/dL (Normal) UA - SPECIFIC GRAVITY 1.025 (Normal) URINE UROBILINGN GLORY TIMED Normal mg/dL (Normal) 62-Nhw-103602:43 URINE GISELLE CULTURE (GLORY Comments: PATIENT NOT FASTINGPERFORMED BY: TATIANA [facility] Sdgnmk7378 [facility] [id number] Information: SRC:UR [id number] COL COUNT) (89230) Result 1 MUG (Normal) Comments: Mixed urogenital flora1,000 Colonies/mL Urine Culture,Comprehensive Final report (Normal) 6-Csw-987038:10 HgA1C , Office (95776) HgA1C , Office 7.3 % (Abnormal) Range: 4.6 - 7.1 4-Qne-944376:10 Blood Glucose , Office (20415) Blood Glucose , Office 164 (Normal) Plan of Care Name Dates Details Instructions Diabetes mellitus type II, controlled : Follow [...] Indication: Mixed hyperlipidemia Colon cancer : Reviewed Nurses Educator Letter Indication: Colon cancer Adrenal adenoma, left [...] Diabetic retinopathy of right eye : Reviewed Nurses Educator Letter Indication: Diabetic retinopathy of right eye [...] pressure Indication: Hypertension, benign Planned Observations CALCIFIDIOL (14208) VIT D 25Indication: Vitamin D deficiency On: 35-Psv-125113:51 Request TSH (43822)Indication: Diabetes mellitus type II, controlled On: 51-Efp-876324:51 Request URINALYSIS, W/ MICRO (13282)Indication: Hypertension, benign On: :50 Request MICROALBUMIN: CREATININE RATIO (59767) AND (76703)Indication: Hypertension, benign On: :50 Request METABOLIC PANEL, COMPREHENSIVE (62637)Indication: Hypertension, benign On: :50 Request CBC W/AUTO DIFF WBC (14138)Indication: Hypertension, benign On: :50 Request LIPOPROTEIN, BLD, BY NMR (02022)Indication: Mixed hyperlipidemia On: :50 Request CBC with auto diff (28815)Indication: Thrombocytosis On: :47 Request METABOLIC PANEL, COMPREHENSIVE (44007)Indication: Diabetic nephropathy On: :47 Request HGB A1C (36451)Indication: Diabetic nephropathy On: :47 Request LIPID PANEL (89442)Indication: Mixed hyperlipidemia On: :47 Request METABOLIC PANEL, COMPREHENSIVE (19904)Indication: Hyponatremia with normal extracellular fluid volume On: :46 Request SED RATE ERYTHROCYTE (71560)Indication: Thrombocytosis On: :42 Request C-REACTIVE PROTEIN (04577)Indication: Thrombocytosis On: :42 Request SPEP (21123)Indication: Thrombocytosis On: :41 Request UPEP (49584)Indication: Thrombocytosis On: :41 Request CBC W/AUTO DIFF WBC (24300)Indication: Thrombocytosis On: :41 Request LIPID PANEL (38888)Indication: Mixed hyperlipidemia On: :25 Request CBC with auto diff (01507)Indication: Diabetes mellitus type II, controlled On: 27-Jxh-996213:25 Request METABOLIC PANEL, COMPREHENSIVE (63944)Indication: Diabetes mellitus type II, controlled On: 84-Ubn-059929:25 Request Hemoglobin Glyclated (HGB A1C) ([id number])Indication: Diabetes mellitus type II, controlled On: 37-Utx-613250:25 Request LIPID PANEL (59356)Indication: Mixed hyperlipidemia On: 0-Wzt-658636:58 Request Hemoglobin Glyclated (HGB A1C) (71730)Indication: Diabetic nephropathy On: 4-Rbm-282122:58 Request MICROALBUMIN: CREATININE RATIO ([id number]) AND ([id number])Indication: Diabetic nephropathy On: 0-Oco-070065:57 Request METABOLIC PANEL, COMPREHENSIVE (72729)Indication: Diabetic nephropathy On: 3-Qvi-233702:57 Request Potassium Serum (27892)Indication: Hypokalemia (Renamed from Decreased potassium in the blood) On: 39-Lwa-238318:47 Request CBC with auto diff (45883)Indication: Hypertension, benign On: 83-Viw-210581:41 Request Hemoglobin Glyclated (HGB A1C) ([id number])Indication: Diabetes mellitus type II, controlled On: 73-Ein-102232:40 Request METABOLIC PANEL, COMPREHENSIVE (41020)Indication: Hypertension, benign On: 93-Qzh-356885:40 Request LIPID PANEL (90901)Indication: Mixed hyperlipidemia On: 77-Mwg-267099:40 Request URINE GISELLE CULTURE-GLORY COL COUNT (33092)Indication: Other abnormal finding of urine On: 45-Shv-086089:11 Request HgA1C , Office ([id number])Indication: Diabetes type II, uncontrolled, ophthalmic comp On: 42-Swm-00055:43 Request CBC W/AUTO DIFF WBC (24423)Indication: Diabetes type II, uncontrolled, ophthalmic comp On: 75-Var-468817:35 Request MICROALBUMIN: CREATININE RATIO (48844) AND (31246)Indication: Diabetic nephropathy On: 96-Inc-115946:35 Request METABOLIC PANEL, COMPREHENSIVE (84654)Indication: Diabetes type II, uncontrolled, ophthalmic comp On: 94-Uav-518403:35 Request LIPID PANEL ([id number])Indication: Mixed hyperlipidemia On: 16-Ffq-991995:35 Request CBC W/AUTO DIFF WBC (73971)Indication: Diabetic nephropathy On: 1-Vgp-870489:44 Request METABOLIC PANEL, COMPREHENSIVE (48819)Indication: Diabetic nephropathy On: :44 Request LIPID PANEL (14011)Indication: Mixed hyperlipidemia On: 3-Cod-116853:44 Request HgA1C , Office (70414)Indication: Diabetes type II, uncontrolled, ophthalmic comp On: :48 Request LIPID PANEL (11593)Indication: Mixed hyperlipidemia On: 16-Zrm-505140:53 Request CBC WITH MANUAL DIFF ([id number])Indication: Diabetes type II, uncontrolled, ophthalmic comp On: :53 Request METABOLIC PANEL, COMPREHENSIVE (63428)Indication: Diabetes type II, uncontrolled, ophthalmic comp On: :53 Request MICROALBUMIN: CREATININE RATIO (97750) AND (78936)Indication: Diabetic nephropathy On: :53 Request TSH ([id number])Indication: Depression On: : Request MICROALBUMIN: CREATININE RATIO (47271) AND (06449)Indication: Diabetes type II, uncontrolled, ophthalmic comp On: : Request METABOLIC PANEL, COMPREHENSIVE (20100)Indication: Diabetes type II, uncontrolled, ophthalmic comp On: : Request LIPID PANEL ([id number])Indication: Mixed hyperlipidemia On: : Request METABOLIC PANEL, COMPREHENSIVE (00634)Indication: Hypertension, benign On: :33 Request CBC WITH MANUAL DIFF ([id number])Indication: Hypertension, benign On: :33 Request LIPID PANEL (94666)Indication: Mixed hyperlipidemia On: :33 Request LIPID PANEL ([id number])Indication: Mixed hyperlipidemia On: :21 Request METABOLIC PANEL, COMPREHENSIVE (16129)Indication: Hyponatremia with normal extracellular fluid volume On: :20 Request MICROALBUMIN: CREATININE RATIO (79962) AND (45340)Indication: Diabetic nephropathy On: :20 Request CBC WITH MANUAL DIFF ([id number])Indication: Diabetes type II, uncontrolled, ophthalmic comp On: :30 Request METABOLIC PANEL, COMPREHENSIVE ([id number])Indication: Diabetes type II, uncontrolled, ophthalmic comp On: :30 Request LIPID PANEL (40197)Indication: Mixed hyperlipidemia On: :30 Request LIPID PANEL (30598)Indication: Mixed hyperlipidemia On: :08 Request MICROALBUMIN: CREATININE RATIO (97740) AND ([id number])Indication: Diabetic nephropathy On: : Request METABOLIC PANEL, COMPREHENSIVE ([id number])Indication: Hypertension, benign On: : Request URINE GISELLE CULTURE (GLORY COL COUNT) ([id number])Indication: Abnormal urine On: : Request METABOLIC PANEL, COMPREHENSIVE (06009)Indication: Hyponatremia with normal extracellular fluid volume On: : Request Hemoglobin Glyclated (HGB A1C) (96410)Indication: Diabetes type II, uncontrolled, ophthalmic comp On: 59-Cqy-984074:00 Request LIPID PANEL (59012)Indication: Hypertension, benign On: :58 Request METABOLIC PANEL, COMPREHENSIVE (83687)Indication: Hypertension, benign On: :58 Request URINALYSIS, W/ MICRO (34514)Indication: Hypertension, benign On: :43 Request CBC WITH MANUAL DIFF ([id number])Indication: Hypertension, benign On: :43 Request METABOLIC PANEL, COMPREHENSIVE (05870)Indication: Hyponatremia with normal extracellular fluid volume On: :43 Request LIPID PANEL (02774)Indication: Mixed hyperlipidemia On: :43 Request Metabolic Panel, Basic ([id number])Indication: Hyponatremia with normal extracellular fluid volume On: 21-Bjv-166106:21 Request Comments: 2 weeks TSH ([id number])Indication: Hyponatremia with normal extracellular fluid volume On: :58 Request OSMOLALITY URINE (46077)Indication: Hyponatremia with normal extracellular fluid volume On: :58 Request OSMOLALITY BLOOD (40332)Indication: Hyponatremia with normal extracellular fluid volume On: :58 Request SODIUM URINE ([id number])Indication: Hyponatremia with normal extracellular fluid volume On: :58 Request SODIUM SERUM ([id number])Indication: Hyponatremia with normal extracellular fluid volume On: :58 Request MICROALBUMIN: CREATININE RATIO (51333) AND (05007)Indication: Hypertension, benign On: :57 Request CBC WITH MANUAL DIFF ([id number])Indication: Hypertension, benign On: :56 Request METABOLIC PANEL, COMPREHENSIVE ([id number])Indication: Hypertension, benign On: :56 Request LIPID PANEL (47828)Indication: Mixed hyperlipidemia On: :56 Request TSH ([id number])Indication: Depression On: : Request URINALYSIS, W/ MICRO (98422)Indication: Diabetes type II, uncontrolled, ophthalmic comp On: Request MICROALBUMIN: CREATININE RATIO (34284) AND ([id number])Indication: Diabetes type II, uncontrolled, ophthalmic comp On: : Request CBC WITH MANUAL DIFF ([id number])Indication: Diabetes type II, uncontrolled, ophthalmic comp On: Request METABOLIC PANEL, COMPREHENSIVE (58070)Indication: Hypertension, benign On: Request LIPID PANEL ([id number])Indication: Mixed hyperlipidemia On: Request Planned Encounters Medical; 3 Month FU - On: 15-Mar-2018 13:45 [facility] Kathy Noguera DO, DO, Kathleen Planned Procedures PNEUM VAC ADLT/IMUMNOSPR, On: 22-Aug-2017 Intent SBC/INTRM (85801)By: Chuckie TOMAS, Comments: 0.5 cc given lt arm lot [id number] 12/12/18 Kathy Hebert DO [facility] On: 22-Aug-2017 Intent FOR OBESITY, 15 MINUTES (G0447)By: Kathy Noguera DO, DO, Kathleen SCREENING DIGITAL TOMOSYNTHESIS OF On: 22-Aug-2017 Intent BREAST ([id number])By: Kathy Noguera DO, DO, Kathleen ELECTROCARDIOGRAM, COMPLETE (ECG) On: 09-Jul-2017 Intent (16675)By: Kathy Noguera DO Comments: nsr no acute chg-- wavy baseline from parkinson and tremor-- poor R wave progression -non speicifce st flattening Kathy Noguera DO CT SCAN OF ABDOMEN WITH CONTRAST On: 04-Apr-2017 Intent (28996)By: Kathy Noguera DO, DO, Kathleen Flu Vaccine (Quadrivalent) On: 11-Dec-2016 Intent 90491Qw: Kathy Noguera DO Comments: Lot:[id number]:09/17/17Amt:0.5mlRoute:IMSite: L DltdGiven By: CHAPIS Montiel signed Kathy Noguera DO SCREENING DIGITAL TOMOSYNTHESIS OF On: 27-Sep-2016 Intent BREAST ([id number])By: Kathy Noguera DO, DO, Kathleen SCREENING DIGITAL TOMOSYNTHESIS OF On: 25-Sep-2016 Intent BREAST ([id number])By: Sachi Jordan [facility] COUNSEL[facility] On: 30-Jun-2016 Intent FOR OBESITY, 15 MINUTES (G0447)By: Kathy Noguera DO, DO, Kathleen ELECTROCARDIOGRAM, COMPLETE (ECG) On: 14-Jun-2016 Intent (09719)By: Kathy Noguera DO Comments: nsr no acute chg Kathy Noguera DO DEXA SCAN AXIAL SKELETON On: 14-Mar-2016 Intent (17644)By: Prateek Swift MD Flu Vaccine (Quadrivalent) On: 07-Dec-2015 Intent 33168Jn: Prateek Swift MD Comments: Lot:[id number]:09/29/16Dose:0.5mLRoute:IMSite:L DltdGiven By:ELIZABETH signed CT - Abdomen & Pelvis (IV Contrast On: 08-Sep-2015 Intent Needed)By: Emmanuelle Quiñonez DO Cartoid DopplerBy: Emmanuelle Quiñonez DO On: 08-Sep-2015 Intent A MAMMOGRAM, SCREENING, BOTH BREAST On: 08-Sep-2015 Intent (32570)By: Emmanuelle Quiñonez DO Flu Vaccine (Quadrivalent) On: 24-Feb-2015 Intent 47308Ft: Emmanuelle Quiñonez DO Comments: lot [id number]: 09/30/2015site/route L mary kate, IMamt 0.5mlVIS and ABN signed when applicableChelsea, [facility] ADMINISTRATION OF INFLUENZA VIRUS On: 24-Feb-2015 Intent VACCINE ([id number])By: Emmanuelle Quiñonez DO Radiology - Lumbar SpineBy: Khang On: 18-Nov-2014 Intent Emmanuelle TOMAS MAMMOGRAM, SCREENING, BOTH BREAST On: 12-Aug-2014 Intent (72066)By: Emmanuelle Quiñonez DO Cartoid DopplerBy: Emmanuelle Quiñonez DO On: 12-Aug-2014 Intent A EKG (73474)By: Emmanuelle Quiñonez DO On: 17-Jun-2014 Intent Comments: ekg showed normal sinus rhythym, normal axis, no acute st/t wave changes Prevnar 13 (97553)By: Khang TOMAS, On: 20-Mar-2014 Intent Emmanuelle A Comments: [id number] arm, IMAS BILATERAL MAMMOGRAMS (46131)By: On: 16-Sep-2013 Intent Fast DO, Emmanuelle A CT - Brain/Head (IV Contrast On: 22-Aug-2013 Intent Needed)By: Fast DO, Emmanuelle A EEGBy: Fast DO, Emmanuelle A On: 22-Aug-2013 Intent Eprescribed prescriptions On: 22-Aug-2013 Intent (G8553)By: Fast DO, Emmanuelle A Eprescribed prescriptions On: 10-Jun-2013 Intent (G8553)By: Fast DO, Emmanuelle A Eprescribed prescriptions On: 04-Mar-2013 Intent (G8553)By: Kirsten Cardona Pulse Oximetry (96518)By: Brendan, On: 04-Mar-2013 Intent Kirsten Comments: 96% IMMUNIZ ADMNIN, 1 VAC, SNGL/COMBO On: 21-Jan-2013 Intent (47221)By: Radha Hill LPN Comments: lot # [id number]- 6.2014site- L dltdroute-IMdose- 0.5mlVIS and ABN signedCHenderson LUIS ALBERTO FLU VAC, SPLIT, >3 YEARS, On: 21-Jan-2013 Intent INTRAMUSC (21611)By: Radha Hill LPN Venous Doppler - LeftBy: Khang TOMAS, On: 04-Dec-2012 Intent Emmanuelle A EKG (88789)By: Kirsten Cardona On: 04-Dec-2012 Intent Comments: ekg showed normal sinus rhythym, normal axis, no acute st/t wave changes Cartoid DopplerBy: Fast DO, Emmanuelle On: 04-Dec-2012 Intent A Comments: oct Radiology - Knee - Left - Weight On: 04-Dec-2012 Intent BearingBy: Fast DO, Emmanuelle A MAMMOGRAM, SCREENING, BOTH BREASTS On: 02-Sep-2012 Intent (46937)By: Fast DO, Emmanuelle A Eprescribed prescriptions On: 02-Sep-2012 Intent (G8553)By: Flinner, Kirsten Eprescribed prescriptions On: 10-Jun-2012 Intent (G8553)By: Kirsten Cardona CT - Abdomen & PelvisBy: Khang TOMAS, On: 08-May-2012 Intent Emmanuelle Monreal Comments: with contrast- stat today call wet read Eprescribed prescriptions On: 08-May-2012 Intent (G8553)By: Kirsten Cardona Eprescribed prescriptions On: 04-Mar-2012 Intent (G8553)By: Kirsten Cardona Radiology - ChestBy: Khang TOMAS, On: 19-Jan-2012 Intent Emmanuelle A Comments: PA & Lat- 2 weeks HOLLEY (Ankle Brachial Index) On: 17-Jan-2012 Intent (29904)By: Emmanuelle Quiñonez DO Cartoid DopplerBy: Emmanuelle Quiñonez DO On: 17-Jan-2012 Intent A ADMINISTRATION OF INFLUENZA VIRUS On: 17-Jan-2012 Intent VACCINE (G0008)By: Brendan, Comments: Lot #:[id number] date:06.12Amount given:prefilled syringeSite given:L Dltd, IMGiven by: DEBORAH Hernandez signed Kirsten FLU VAC, SPLIT, >3 YEARS, On: 17-Jan-2012 Intent INTRAMUSC (96125)By: Kirsten Cardona Carotid DopplerBy: Emmanuelle Quiñonez DO On: 12-Jan-2012 Intent A Comments: Please get results to Dr Rowan Redd Phone- [phone] Radiology - Hip - BilateralBy: On: 08-Jan-2012 Intent Emmanuelle Quiñonez DO Comments: weight bearing Radiology - Lumbar SpineBy: Khang On: 08-Jan-2012 Intent Emmanuelle TOMAS EKG (66984)By: Kirsten Cardona On: 03-Oct-2011 Intent Comments: ekg showed normal sinus rhythym, normal axis, no acute st/t wave changes TDAP VACCINE >7 IM (74612)By: On: 03-Oct-2011 Intent Kirsten Cardona Comments: Lot #[id number]-6/22/14Site-left deltoidgiven by: Drake Colón LPN PNEUM VAC ADLT/IMUMNOSPR, On: 03-Oct-2011 Intent SBC/INTRM (66597)By: Brendan, Comments: received elsewhere in 2011 Kirsten Instructions Name Dates Details Diabetes mellitus type II, controlled : How [...] Mixed hyperlipidemia : DISCONTINUED - LIPID PANEL (60646) Indication: Mixed hyperlipidemia Hypertension, benign : Patient Instructions Indication: Hypertension, benign Limb pain : Patient Instructions Indication: Limb pain Encounters Office Visit On: 12-Oct-2017 13:03 Encounter Reason: [...] () a mini mental status exam done to End: 22-Aug-2017 12:43 ay. The activities of [...] done last July) and colonoscopy (07/2017 - [facility]). The patient does not have durable power of city attorney or living will. The p atient has noticed dropping activities and interests, getting bored, feeling helpless, staying at home rather than doing something new or going out, having problems with memory than others and lack of e nergy. Other providers contributing to the patient's care are other: (nephrology and vision screen done in [place] in march).Encounter Diagnosis: BMI 35.0-35.9,adult, Non-smoker, Encounter [...] patient does not have durable power of city attorney or living will. The patient has [...] of procedure: (06/22/14 End: 18-Jun-2014 22:24 at [facility] with [address]. Kole Tellez) . There have [...] well. Patient has been compliant with instructions. [facility] End: 04-Mar-2013 22:38 t medication use: no [...] Diabetic neuropathy (357.2) [facility] [employer] Amador Owens; a guarantor
--- OUTSIDE RECORDS SUMMARY | 2018-06-21 22:53 | XMS RPT_ITS | Continuity of Care Document ---
:1945 Author Organization [facility] Address [address] [place] [address] Phone Care Team Providers Name Role Phone [...] yearly consistently eye exam Dr Dent in [place] (Opthalmology) next OV - 2018 sees every 6 months last seen Status: Active Encounter for annual general medical examination with abnormal findings in adult (Z00.01, V70.0) Status: Active Encounter for screening for malignant neoplasm of colon (Renamed from Special screening for malignant neoplasms, colon) (Z12.11, V76.51) Comments: last scope 2018-- 5-[address]yrs if that per dr brannno Status: Active Encounter for screening mammogram for [...] days Quantity: 180 {Tablet} Refills: 3 Ordered:11-Dec-2016 Jbe Noguera DO, DO, Kathleen Start : 11-Dec-2016 [...] Start : 18-Nov-2014 End : 24-Feb-2015 Discontinued Comments:[facility] food in am TRADJENTA, 5MG (Oral Tablet) [...] Status: Inactive as of 17-Dec-2013 Vaccine for tgsxhudoge-htuhdza-yylrjtqif with poliomyelitis (Z23, V06.3) Status: Inactive as of 04-Dec-2012 Procedures Procedure Dates Details Cataract Removal, Insert Prosthetic Lens Completed Comments: both eyes- 2011 Colon Cancer Completed Comments: 1 foot of colon removed-2002 colonscopy- 12/11- DR Mendoza Completed Diabetic Retinopathy Completed Comments: 2011 Gallbladder Surgery - Laparoscopic Completed Comments: 1994 Date Value Details 19-Oct-2017 SCREENING MAMM (CAD), BILAT Result: Comments: See Note; NOTES: [facility] Imaging Services [address] [place] [address] SCREENING MAMM (CAD), BILAT MR#: [id number] Acct: [id number] Name: EUGENE OWENS Rep #: [id number] : 1945 F 71 From: Matt Cortes MD PCP: Kathy Noguera DO Status: REG CLI Study: SCREENING MAMM (CAD), BILAT Date of Exam: 10/19/17 Exam# [id number] Ordering Dr: Kathy Noguera DO MAMMOGRAPHY - [...] [facility] facility within 30 days. Approximately 10% of breast cancers are not detected by mammography. A normal mammogram should not delay biopsy of a clinically suspicious abnormality. [id number] Elect ronically Signed: Matt Cortes MD at 14:43 EDT Tel [phone], Service support , CC: Kathy Noguera DO Coil Former: Signed 20-Jun-2017 Abdomen WITH IV Contrast Result: Comments: See Note; NOTES: [facility] Imaging Services [address] [place] [address] Abdomen WITH IV Contrast MR#: [id number] Acct: [id number] Name: EUGENE OWENS Rep #: [id number] : 1945 F 71 From: Levar Meadows MD PCP: Kathy Noguera DO Status: REG CLI Study: Abdomen WITH IV Contrast Date of Exam: 06/20/17 Exam# [id number] Ordering Dr: Kathy Noguera DO STUDY: C [...] umbilicus is only partially included in the gqoew-pt-kknq, but again appears to contain nondistended small [...] Service support , CC: Kathy Noguera DO Coil Former: Signed 04-Oct-2016 SCREENING MAMM (CAD), BILAT Result: Comments: See Note; NOTES: [facility] Imaging Services [address] [place] [address] Verdana 4d SCREENING MAMM (CAD), BILAT MR#: [id number] Acct: [id number] Name: EUGENE OWENS Rep #: [id number] : 1945 F 70 From: Levar Cavanaugh MD PCP: Kathy Noguera DO Status: [facility] CL Study: SCREENING MAMM (CAD), BILAT Date of Exam: 10/04/16 Exam# [id number] Ordering Dr: Americo Noguera DO MAMMOGRAPHY - [...] delay biopsy of a clinically suspicious abnormality. [id number] Electronically Signed: Kevin Cavanaugh MD at 15:21 EDT , Service support , Fa x [phone] CC: Kathy Noguera DO Coil Former: Signed 13-Jul-2016 DXA BONE DENS W/VERT FX ASMT Result: Comments: See Note; NOTES: [facility] Imaging Services [address] [place] [address] Verdana 4d DXA BONE DENS W/VERT FX ASMT MR#: [id number] Acct: [id number] Name: EUGENE OWENS Rep #: [id number] : 1945 F 70 From: Matt Cortes MD PCP: Kathy Noguera DO Status: REG CLI Study: DXA BONE DENS W/VERT FX ASMT Date of Exam: 07/13/16 Exam# [id number] Ordering Dr: Kathy Noguera DO STUDY: DUAL [...] Matt Cortes MD at 13:30 EDT Tel [phone], Service support , CC: Kathy Noguera DO Coil Former: Signed 01-Oct-2015 Bilat Scrn Digital AND CAD Result: Comments: See Note; NOTES: [facility] Imaging Services [address] [place] [address] Verdana 4d Bilat Scrn Digital AND CAD MR#: [id number] Acct: [id number] Name: EUGENE OWENS Rep #: [id number] : 1945 F 69 From: Narciso Eisenberg MD PCP: Emmanuelle Quiñonez DO Status: REG CLI Study: Bilat Scrn Digital AND CAD Date of Exam: 10/01/15 Exam# [id number] Ordering Dr: Emmanuelle Roper DO MAMMOGRAPHY - [...] delay biopsy of a clinically suspicious abnormality. [id number] Electronically Signed: Narciso Eisenberg MD at 17:54 EDT Te l , Service support [phone], CC: Emmanuelle Quiñonez DO Coil Former: Signed 19-Sep-2015 Carotid Duplex Ultrasound Result: Comments: See Note; NOTES: [facility] Cardiovascular Services [address] [place] [address] Carotid Duplex Ultrasound 09/17/15 0801 MR#: [id number] Acct: [id number] Name: EUGENE OWENS Rep #: [id number] : 1945 69 From: Adria Kim MD [...] in the left bulb. Procedure Carotid Duplex 26638. Exam performe d in department. Interpretation Summary Mild (<50%) stenosis right extracranial internal carotid. Mild (<50%) stenosis left extracranial internal carotid. Flow within the vertebral arteries is antegrade bilaterally. Ordering Physician: Emmanuelle Quiñonez Referring Physician: Emmanuelle Quiñonez Performed By: Lina Dumont, CARISSA, RVT 09/19/152156 Date Adria Kim MD CC: Emmanuelle Quiñonez DO Date Dictated: 09/17/15 0801 Date Transcribed: 09/19/152156 Coil Former: Signed 17-Sep-2015 Abdomen/Pelvis WITH Contrast Result: Comments: See Note; NOTES: [facility] Imaging Services [address] [place] [address] Verdana 4d Abdomen/Pelvis WITH Contrast MR#: [id number] Acct: [id number] Name : ROMANEUGENE F Rep #: [id number] : 1945 F 69 From: Matt Cortes MD PCP: Emmanuelle Quiñonez DO Status: REG CLI Study: Abdomen/Pelvis WITH Contrast Date of Exam: 09/17/15 Exam# [id number] Genevieve vasquez Dr: Emmanuelle Quiñonez DO STUDY: [...] Cortes MD at 8:43 EDT Tel [phone], Service support [phone], CC: Emmanuelle Quiñonez DO Coil Former: Signed 20-Aug-2015 Brain W/WO Contrast Result: Comments: See Note; NOTES: [facility] Imaging Services [address] [place] [address] Verdana 4d Brain W/WO Contrast MR#: [id number] Acct: [id number] Name: SA LAURO OWENS F Rep #: [id number] : 1945 F 69 From: Narciso Eisenberg MD PCP: Emmanuelle Quiñonez DO Status: REG CLI Study: Brain W/WO Contrast Date of Exam: 08/20/15 Exam# [id number] Ordering Dr: Ashu Bhatti MD STUDY: MRI [...] at 15:23 EDT Tel , Service support [phone], CC: Emmanuelle Bhatti MD Coil Former: Signed 20-Aug-2015 Brain W/WO Contrast Result: Comments: See Note; NOTES: [facility] Imaging Services [address] [place] [address] Vanessa 4d Brain W/WO Contrast MR#: [id number] Acct: [id number] Name: SA RA Nohemi OWENS Rep #: [id number] : 1945 F 69 From: Narciso Eisenberg MD PCP: Emmanuelle Quiñonez DO Status: REG CLI Study: Brain W/WO Contrast Date of Exam: 08/20/15 Exam# [id number] Ordering Dr: Ashu Bhatti MD ADDENDUM by Narciso Eisenberg MD on 09/05/15 at 0120 ADDENDUM REASON FOR EXAM: Female, 69 y ears old. Cephalgia Electronically Signed: Narciso Eisenberg MD at 1:20 EDT Tel , Service support [phone], 09/05/15 0120 Date c c: Emmanuelle Quiñonez [...] at 15:23 EDT Tel , Service support [phone], CC: Emmanuelle Quiñonez DO; Ashu Bhatti MD Coil Former: Signed 28-Sep-2014 Carotid Duplex Ultrasound Result: Comments: See Note; NOTES: [facility] Cardiovascular Services [address] [place] [address] Carotid Duplex Ultrasound 09/28/14 1657 MR#: [id number] Acct: [id number] Na me: OWENSEUGENE F Rep #: [id number] : 1945 68 From: Adria Kim MD [...] left vertebral artery. Pr ocedure Carotid Duplex 33292. The exam was diagnostic. Exam performed in department. Interpretation Summary Mild (<50%) stenosis right extracranial internal carotid. Mild (<50%) sten osis left extracranial internal carotid. Flow within the vertebral arteries is antegrade bilaterally. _ Ordering Physician: Emmanuelle Quiñonez Performed By: COLETTE Valero 09/28/142025 Date Adria Kim MD CC: Emmanuelle Quiñonez DO Date Dictated: 09/28/14 1657 Date Transcribed: 09/28/142025 Coil Former: Signed 28-Sep-2014 Koko Contehn Digital AND CAD Result: Comments: See Note; NOTES: [facility] Imaging Services [address] [place] [address] Breast Imaging Report MR#: [id number] Acct: [id number] Name: EUGENE OWENS Rep #: [id number] : 1945 F 68 From: Matt Cortes MD PCP: Emmanuelle Quiñonez DO Status: REG CLI Study: Bilat Scrn Digital AND CAD Date of Exam: 09/28/14 Exam# [id number] Ordering Dr: Emmanuelle Quiñonez DO M AMMOGRAPHY [...] Signed: Tay Ignacio at 12:26 EDT Tel [phone], Service support [phone], CC: Emmanuelle Quiñonez DO Coil Former: Signed 29-Sep-2013 Brain W/WO Contrast Result: Comments: See Note; NOTES: [facility] Imaging Services [address] [place] [address] MRI Report MR#: [id number] Acct: [id number] Name: EUGENE OWENS Rep #: [id number] : 1945 F 67 From: Jess Rousseau MD PCP: Emmanuelle Quiñonez DO Status: REG CLI Study: Brain W/WO Contrast Date of Exam: 09/29/13 Exam# [id number] Ordering Dr: Josephine Stacy [employer] STUDY TEACHER-C STUDY: MRI BRAIN WITH AND WITHOUT CONTRAST [...] at 17:54 EDT Tel , Service support [phone], CC: Josephine Quiñonez DO Coil Former: Signed 24-Sep-2013 Bilat Scrn Digital & CAD Result: Comments: See Note; NOTES: [facility] Imaging Services [facility] [place] [address] Breast Imaging Report MR#: [id number] Acct: [id number] Name: EUGENE OWENS Rep #: [id number] : 1945 F 67 From: Matt Cortes MD PCP: Emmanuelle Quiñonez DO Status: REG CLI Exam# [id number] Ordering Dr: Emmanuelle Quiñonez DO MAMMOGRAPHY - [...] Matt Cortes MD at 13:45 EDT Tel [phone], Service support [phone], CC: Emmanuelle Quiñonez DO Coil Former: Signed 06-Sep-2013 Electroencephalogram Result: Comments: See Note; NOTES: [facility] Pulmonary Services/Neurology [address] [place] [address] Electroencephalogram (EEG) MR#: [id number] Acct: [id number] Name: SA RA Nohemi OWENS Rep #: [id number] : 1945 67 From: Ashu Bhatti MD [...] Dictated: 09/05/13 1408 Date Transcribed: 09/05/13 1558 Coil Former: LEROY Signed 05-Sep-2013 Brain/Head W/WO Contrast Result: Comments: See Note; NOTES: [facility] Imaging Services [address] [place] [address] CAT Scan Report MR#: [id number] Acct: [id number] Name: EUGENE OWENS Rep #: [id number] : 1945 F 67 From: Alley Joe MD PCP: Emmanuelle Quiñonez DO Status: REG CLI Study: Brain/Head W/WO Contrast Date of Exam: 09/05/13 Exam# [id number] Ordering Dr: Emmanuelle Quiñonez DO STUDY: CT [...] MD at 9:35 EDT , Service support [phone], CC: Emmanuelle Quiñonez DO Coil Former: Signed 05-Aug-2013 Brain/Head without Contrast Result: Comments: See Note; NOTES: [facility] Imaging Services [address] [place] [address] CAT Scan Report MR#: [id number] Acct: [id number] Name: EUGENE OWENS Rep #: [id number] : 1945 F 67 From: Matt Cortes MD PCP: Emmanuelle Quiñonez DO Status: REG ER Study: Brain/Head without Contrast Date of Exam: 08/05/13 Exam# [id number] Ordering Dr: Frank Lane MD STUDY: CT [...] Matt Cortes MD at 15:35 EDT Tel [phone], Service support [phone], F ax [phone] CC: Emmanuelle Quiñonez DO; Frank Lane MD Coil Former: Signed 05-Aug-2013 Chest PA and Lateral Result: Comments: See Note; NOTES: [facility] Imaging Services [address] [place] [address] Radiology Report MR#: [id number] Acct: [id number] Name: EUGENE OWENS Rep #: [id number] : 1945 F 67 From: Matt Cortes MD PCP: Emmanuelle Quiñonez DO Status: REG ER Study: Chest PA and Lateral Date of Exam: 08/05/13 Exam# [id number] Ordering Dr: Frank Lane MD STUDY: X-RAY [...] Matt Cortes MD at 15:38 EDT Tel [phone], Service support [phone], RAD/Chest PA and Lateral IMPRESSION: No acute abnormality is present. Electronically Signed: Matt Cortes MD at 15:38 EDT Tel [phone], Service support , CC: Emmanuelle Quiñonez DO; Frank Laen MD Coil Former: Signed Family History Unknown Family Member Name [...] smoker Vital Signs Date Test Result Details 91-Www-174671:37 Pulse 87 /min Comments: Pattern: Regular Respiration [...] Description Value Details :40 HgA1C , Office (93706) HgA1C , Office 6.4 % (Normal) Range: 4.6 - 7.1 :40 Blood Glucose , Office (28608) Blood Glucose , Office 122 (Normal) :23 CBC W/Diff, Automated Comments: [facility] [address] [place], [place], [address] Absolute Lymph 1.65 {X10_3/ul} (Normal) Range: 0.83-4.51 [...] 4.2-5.4 WBC 9.7 K/mm3 (Normal) Range: 4.4-11.0 89-Rlu-61231:23 Comprehensive Metabolic Profil Comments: [facility] [address] [place], [place], [address] GAP 12 (Normal) Range: 5-15 CO2 28.0 [...] suggests HYPOGLYCEMIA.Please note revised GLUCOSE reference range trdfajjzm70/02/2018. 95-Qhk-14072:23 NMR Lipoprofile Comments: [facility] (refer to report [...] US Food and Drug Administration.Performed at: - [address] [id number] Director: Thaddeus Glasgow MD, Phone: [phone] INS RES/DIAB RK . (Normal) LDL SIZE [...] mg/dL (Normal) Range: 100-199 LIPIDS . (Normal) 45-Bsm-25198:23 Thyroid Stim Hormone (TSH) Comments: [facility] [address] [facility] [place], [place], [address] TSH 2.93 {uIU/mL} (Normal) Range: 0.358-3.74 :23 Vitamin D,25 Hydroxy Comments: [facility] [address] [place], [place], [address] Vitamin D 25-OH 11.8 ng/mL (Abnormal) Range: 29.95-100.01 Comments: Vitamin D 25(OH) Status Range Deficiency <20 ng/mL (50nmol/L) Insuffciency 20 - 30 ng/mL (50 - 75 nmol/L) Sufficiency 30 - 100 ng/mL (75 - 250 nmol/L) Toxicity >100 ng/mL (>250 nmol/L) 05-Bdm-795806:04 HgA1C , Office (06769) HgA1C , Office 6.9 % (Normal) Range: 4.6 - 7.1 87-Dar-604988:04 Blood Glucose , Office (10075) Blood Glucose , Office 157 (Normal) :37 Pathology Report Comments: PERFORMED BY: MARCIE LabCoashutosh [place] Fybj0996 [facility] [id number] BY: [facility] Dermatopathology [address] [place] [address] [id number] 670Clinical Information: [id number] See MATER Comments: Material submitted: .RIGHT CHEEKClinical history: .SKIN LESION RAISED IRREGULAR BLEEDING/SCABBED 1/2 Note (Normal) Diagnosis:IRRITATED AND INFLAMED SEBORRHEIC KERATOSIS WITH VERRUCOUSFEATURES.08/30/2017 Electronically signed: .Hiro Sims MD, DermatopathologistGross description: .RECEIVED IN FORMALIN LABELED EUGENE OWENS IS A DOE VARELA CRUSTY SKIN NODULE (8X 6 X 5 MM). INKED AT THE MARGIN OF RESECTION, SECTIONED AND ENTIRELYSUBMITTED IN ONE CASSETTE.DKS/SMIPathologist provided ICD-10:L82.0CPT .739616 8-Emv-958348:04 HgA1C , Office (62815) HgA1C , Office 6.5 % (Normal) Range: 4.6 - 7.1 :04 Blood Glucose , Office (82923) Blood Glucose , Office 119 (Normal) :40 Microscopic Examination Comments: PATIENT WAS FASTINGPERFORMED BY: AskBot6370 [facility] [id number] Bacteria Few (Normal) Mucus Threads Present (Normal) Crystal Type Amorphous Sediment (Normal) Crystals Present (Abnormal) Epithelial Cells (non renal) 0-10 {/hpf} (Normal) Range: 0 - 10 RBC 0-2 {/hpf} (Normal) Range: 0 - 2 WBC 0-5 {/hpf} (Normal) Range: 0 - 5 50-Agz-720473:05 CREATININE FINGERSTICK Comments: [facility] LaboratoryPoint of [address] [place] [address] EGFR WB > 60.0000 mL/min (Normal) CREATININE WB 0.6 mg/dL (Normal) Range: 0.55-1.02 6-Ogr-590388:08 Urinalysis, Office (83884) UA - LEUKOCYTE ESTERASE Small (Normal) UA - NITRITE Negative (Normal) URINE UROBILINGN GLORY TIMED Normal mg/dL (Normal) UA - PROTEIN 100 mg/dL (Normal) UA - PH 6 (Abnormal) UA - BLOOD Non Hemolyzed Trace (Normal) UA - SPECIFIC GRAVITY 1.020 (Normal) UA - KETONES 15 mg/dL (Abnormal) UA - BILIRUBIN Negative (Normal) UA - GLUCOSE Negative (Normal) 2-Ouf-649809:26 URINE GISELLE CULTURE-IDENTIFICATN Comments: PATIENT NOT FASTINGPERFORMED BY: [employer] [facility] [id number] Information: SRC:UC (13652) Result 1 MUG (Normal) Comments: Mixed urogenital flora10,000-25,000 colony forming units per mL Urine Final report (Normal) Culture,Comprehensive 4-Dur-427762:51 HgA1C , Office (97370) HgA1C , Office 6.7 % (Normal) Range: 4.6 - 7.1 1-Oas-300014:51 Blood Glucose , Office (32674) Blood Glucose , Office 225 (Normal) 03-Jul-20178:40 TSH (22804) Comments: PATIENT WAS FASTINGPERFORMED BY: [employer] Labbluebird biorp Fnwhwh2728 [facility] [id number] TSH 3.800 {uIU/mL} (Normal) Range: 0.450-4.500 :40 URINALYSIS, W/ MICRO (14145) Comments: PATIENT WAS FASTINGPERFORMED BY: Alectrica MotorsHudson County Meadowview HospitalNkaykr2726 [facility] [id number] Microscopic Examination See below: (Normal) Comments: Microscopic was indicated and was performed. Nitrite, Urine Negative (Normal) Urobilinogen,Semi-Qn 0.2 mg/dL (Normal) Range: 0.2-1.0 Bilirubin Negative (Normal) Occult Blood Negative (Normal) Ketones Negative (Normal) Glucose Negative (Normal) Protein 1+ (Abnormal) WBC Esterase 1+ (Abnormal) Appearance Clear (Normal) Urine-Color Yellow (Normal) pH 7.5 (Normal) Range: 5.0-7.5 Specific [place] 1.018 (Normal) Range: 1.005-1.030 :40 MICROALBUMIN: CREATININE RATIO Comments: PATIENT WAS FASTINGPERFORMED BY: Alectrica MotorsHudson County Meadowview HospitalZmqxss5209 [facility] [id number] (18632) AND (67766) Alb/Creat Ratio 557.7 {mg/g_creat} (Abnormal) Range: 0.0-30.0 Albumin, Urine 187.4 ug/mL (Normal) Creatinine, Urine 33.6 mg/dL (Normal) :40 METABOLIC PANEL, COMPREHENSIVE Comments: PATIENT WAS FASTINGPERFORMED BY: [facility] [place]6370 [facility] [id number] (14763) ALT (SGPT) 6 [iU]/L (Normal) Range: 0-32 [...] mg/dL (Normal) Range: 65-99 :40 LIPID PANEL (05758) Comments: PATIENT WAS FASTINGPERFORMED BY: [employer] LabCoReasult70 [facility] LabsLev[facility] [id number] LDL/HDL Ratio 0.9 {ratio} (Normal) Range: 0.0-3.2 [...] Range: 100-199 :40 CBC W/AUTO DIFF WBC (27562) Comments: PATIENT WAS FASTINGPERFORMED BY: ButlrCoReasult70 SuperBetter LabsLevine Children[facility] Hospital [id number] Immature Grans (Abs) 0.0 {x10E3/uL} (Normal) Range: [...] 10.8 {x10E3/uL} (Normal) Range: 3.4-10.8 03-Jul-20178:40 CALCIFIDIOL (65320) VIT D 25 Comments: PATIENT WAS FASTINGPERFORMED BY: LabCoHudson County Meadowview HospitalVambpr1303 [facility] [id number]; ov 07/09 Vitamin D, 25-Hydroxy 13.6 ng/mL (Abnormal) Range: 30.0-100.0 Comments: Vitamin D deficiency has been defined by the [place] of[place] and an Endocrine Society practice guideline as alevel of serum 25-OH vitamin D less than 20 ng/mL (1,2).The Endocrine Society went on to further define vitamin Dinsufficiency as a level between 21 and 29 ng/mL (2).1. IOM ([place] [employer]). 2010. Dietary reference intakes for calcium and D. [place]: The National Academies Press.2. Alma Delia MF, Ru [place], Valery HARPER, et al. Evaluation, treatment, and prevention of vitamin D deficiency: an Endocrine Society clinical practice guideline. JCEM. 2010; 96(7):1911-30. :06 HgA1C , Office (60206) HgA1C , Office 6.4 % (Normal) Range: 4.6 - 7.1 :06 Blood Glucose , Office (88457) Blood Glucose , Office 235 (Normal) :39 Microscopic Examination Comments: PATIENT NOT FASTINGPERFORMED BY: [employer] [facility] [id number] Bacteria Moderate (Abnormal) Mucus Threads Present (Normal) Crystal Type Amorphous Sediment (Normal) Comments: Calcium Oxalate Crystals Present (Abnormal) Cast Type Hyaline casts (Normal) Casts Present {/lpf} (Abnormal) Epithelial Cells (non renal) >10 {/hpf} (Abnormal) Range: 0 - 10 RBC 3-10 {/hpf} (Abnormal) Range: 0 - 2 WBC >30 {/hpf} (Abnormal) Range: 0 - 5 :37 LIPID PANEL (76476) Comments: PATIENT WAS FASTINGPERFORMED BY: [employer]70 [facility] [id number] LDL/HDL Ratio 1.1 {ratio_units} (Normal) Range: 0.0-3.2 [...] FUNCTION PANEL Comments: PATIENT WAS FASTINGPERFORMED BY: [employer] OurHistree [facility] [id number]; OV 12/29 (95864) ALT (SGPT) 7 [iU]/L (Normal) Range: 0-32 AST (SGOT) 12 [iU]/L (Normal) Range: 0-40 Alkaline Phosphatase, S 92 [iU]/L (Normal) Range: 39-117 Bilirubin, Direct 0.17 mg/dL (Normal) Range: 0.00-0.40 Bilirubin, Total 0.6 mg/dL (Normal) Range: 0.0-1.2 Albumin, Serum 4.1 g/dL (Normal) Range: 3.5-4.8 Protein, Total, Serum 7.4 g/dL (Normal) Range: 6.0-8.5 :35 HgA1C , Office (16730) HgA1C , Office 6.2 % (Normal) Range: 4.6 - 7.1 :35 Blood Glucose , Office (52756) Blood Glucose , Office 124 (Normal) :31 TSH (64672) Comments: PATIENT WAS FASTINGPERFORMED BY: [facility]epiLev[facility] [id number] TSH 2.470 {uIU/mL} (Normal) Range: 0.450-4.500 :39 URINALYSIS, W/ MICRO (82492) Comments: PATIENT NOT FASTINGPERFORMED BY: [employer] [facility] [id number] Microscopic Examination See below: (Normal) Comments: Microscopic was indicated and was performed. Nitrite, Urine Negative (Normal) Urobilinogen,Semi-Qn 1.0 mg/dL (Normal) Range: 0.2-1.0 Bilirubin Negative (Normal) Occult Blood Negative (Normal) Ketones Trace (Abnormal) Glucose Negative (Normal) Protein 3+ (Abnormal) WBC Esterase 2+ (Abnormal) Appearance Cloudy (Abnormal) Urine-Color Yellow (Normal) pH 6.0 (Normal) Range: 5.0-7.5 Specific [place] >=1.030 (Abnormal) Range: 1.005-1.030 :39 MICROALBUMIN: CREATININE RATIO Comments: PATIENT NOT FASTINGPERFORMED BY: [employer] Lqllpa4261 [employer] [facility] [id number] (16467) AND (96849) Microalb/Creat Ratio 162.3 {mg/g_creat} (Abnormal) Range: 0.0-30.0 Microalbumin, Urine 573.6 ug/mL (Normal) Comments: Results confirmed ondilution. Creatinine, Urine 353.4 mg/dL (Normal) 41-Mnq-041104:31 METABOLIC PANEL, COMPREHENSIVE Comments: PATIENT WAS FASTINGPERFORMED BY: AskBot6370 [facility] [id number] (48721) ALT (SGPT) 8 [iU]/L (Normal) Range: 0-32 [...] Glucose, Serum 68 mg/dL (Normal) Range: 65-99 04-Qzg-524403:31 CBC W/AUTO DIFF WBC (64023) Comments: PATIENT WAS FASTINGPERFORMED BY: [employer] LabCoHealthcare BluebookMpnahr9467 [facility] [id number] Immature Grans (Abs) 0.0 {x10E3/uL} (Normal) Range: [...] 3.77-5.28 WBC 10.7 {x10E3/uL} (Normal) Range: 3.4-10.8 20-Tod-639745:31 LIPID PANEL (82728) Comments: PATIENT WAS FASTINGPERFORMED BY: LabCoHudson County Meadowview HospitalEwkjqj0215 [facility] [id number] LDL/HDL Ratio 2.6 {ratio_units} (Normal) Range: 0.0-3.2 Comments: LDL/HDL Ratio Men Women 1/2 Avg.Risk 1.0 1.5 Av g.Risk 3.6 3.2 2X Avg.Risk 6.2 5.0 3X Avg.Risk 8.0 6.1 LDL Cholesterol Calc 108 mg/dL (Abnormal) Range: 0-99 VLDL Cholesterol Pan 28 mg/dL (Normal) Range: 5-40 HDL Cholesterol 42 mg/dL (Normal) Triglycerides 142 mg/dL (Normal) Range: 0-149 Cholesterol, Total 178 mg/dL (Normal) Range: 100-199 :31 NBZQX-IMGNNHYGTGW-EDWVG (30397) Comments: PATIENT WAS FASTINGPERFORMED BY: [employer] Ppghaj2568 Montes RoadDublin [place] [id number] AFP, Serum, Tumor Marker <0.7 ng/mL (Normal) Range: 0.0-8.3 Comments: Nadine ECLIA methodology :31 CALCIFIDIOL (09946) VIT D 25 Comments: PATIENT WAS FASTINGPERFORMED BY: [employer] Cvyopo7164 Montes RoadDublin [place] [id number] Vitamin D, 25-Hydroxy 20.5 ng/mL (Abnormal) Range: 30.0-100.0 Comments: Vitamin D deficiency has been defined by the [place] of[facility] and an Endocrine Society practice guideline as alevel of serum 25-OH vitamin D less than 20 ng/mL (1,2).The Endocrine Society went on to further define vitamin Dinsufficiency as a level between 21 and 29 ng/mL (2).1. IOM ([place] [employer]). 2010. Dietary reference intakes for calcium and D. [place]: The National Academies Press.2. Alma Delia MF, Ru NC, Valery HARPER, et al. Evaluation, treatment, and prevention of vitamin D deficiency: an Endocrine Society clinical practice guideline. JCEM. 2010; 96(7):1911-30. :34 HgA1C , Office (80075) HgA1C , Office 6.2 % (Normal) Range: 4.6 - 7.1 :34 Blood Glucose , Office (02568) Blood Glucose , Office 147 (Normal) :02 HgA1C , Office (52174) HgA1C , Office 6.4 % (Normal) Range: 4.6 - 7.1 :07 DFVGO-RBWEDCIORLU-XEFAG (23314) Comments: PATIENT WAS FASTINGPERFORMED BY: [facility] biorp Odtpsj7931 Montes RoadDublin [place] [id number] AFP, Serum, Tumor Marker 1.0 ng/mL (Normal) Range: 0.0-8.3 Comments: Nadine ECLIA methodology :07 MICROALBUMIN: CREATININE RATIO Comments: PATIENT WAS FASTINGPERFORMED BY: [employer] Xkvele1053 [facility] [id number] (88354) AND (68037) Microalb/Creat Ratio 454.4 {mg/g_creat} (Abnormal) Range: 0.0-30.0 Microalbumin, Urine 500.8 ug/mL (Normal) Comments: Results confirmed ondilution. Creatinine, Urine 110.2 mg/dL (Normal) :07 VITAMIN B12 AND FOLATES Comments: PATIENT WAS FASTINGPERFORMED BY: [employer] Aflbjn8554 [facility] [id number] (13714) Folate (Folic Acid), Serum 12.7 ng/mL (Normal) Comments: A serum folate concentration of less than 3.1 ng/mL isconsidered to represent clinical deficiency. Vitamin B12 407 pg/mL (Normal) Range: 211-946 :07 CALCIFEDIOL (09229) Comments: PATIENT WAS FASTINGPERFORMED BY: lmbang6370 [facility] [id number] Vitamin D, 25-Hydroxy 15.3 ng/mL (Abnormal) Range: 30.0-100.0 Comments: Vitamin D deficiency has been defined by the [place] [employer] and an Endocrine Society practice guideline as alevel of serum 25-OH vitamin D less than 20 ng/mL (1,2).The Endocrine Society went on to further define vitamin Dinsufficiency as a level between 21 and 29 ng/mL (2).1. IOM ([place] [employer]). 2010. Dietary reference intakes for calcium and D. [place]: The National Academies Press.2. Alma Delia MF, Ru [place], Valery HARPER, et al. Evaluation, treatment, and prevention of vitamin D deficiency: an Endocrine Society clinical practice guideline. JCEM. 2010; 96(7):1911-30. :07 TSH (THYROID STIMULATING Comments: PATIENT WAS FASTINGPERFORMED BY: [facility]6370 [facility] [id number] HORMONE) (64595) TSH 2.280 {uIU/mL} (Normal) Range: 0.450-4.500 :07 LIPID PANEL (26018) Comments: PATIENT WAS FASTINGPERFORMED BY: [facility]6370 [facility] [id number] LDL/HDL Ratio 2.4 {ratio_units} (Normal) Range: 0.0-3.2 Comments: LDL/HDL Ratio Men Women 1/2 Avg.Risk 1.0 1.5 Av g.Risk 3.6 3.2 2X Avg.Risk 6.2 5.0 3X Avg.Risk 8.0 6.1 LDL Cholesterol Calc 115 mg/dL (Abnormal) Range: 0-99 VLDL Cholesterol Pan 28 mg/dL (Normal) Range: 5-40 HDL Cholesterol 48 mg/dL (Normal) Triglycerides 140 mg/dL (Normal) Range: 0-149 Cholesterol, Total 191 mg/dL (Normal) Range: 100-199 7-Tpc-943764:07 METABOLIC PANEL, COMPREHENSIVE Comments: PATIENT WAS FASTINGPERFORMED BY: [facility]6370 [facility] [id number] (86091) ALT (SGPT) 7 [iU]/L (Normal) Range: 0-32 [...] Glucose, Serum 102 mg/dL (Abnormal) Range: 65-99 2-Btz-324927:07 CBC, PLATELETS & AUT DIFF Comments: PATIENT WAS FASTINGPERFORMED BY: LabCoH[facility] Meadowview HospitalDkatle4432 [facility] [id number] (43417) Immature Grans (Abs) 0.0 {x10E3/uL} (Normal) Range: [...] (Normal) Range: 3.4-10.8 :24 HgA1C , Office (77993) HgA1C , Office 6.0 % (Normal) Range: 4.6 - 7.1 :24 Blood Glucose , Office (70927) Blood Glucose , Office 125 (Normal) :38 HEPATITIS PANEL (87739) Comments: PATIENT WAS FASTINGPERFORMED BY: [employer] [facility] [id number] Hep C Virus Ab 0.2 {s/co_ratio} (Normal) Range: 0.0-0.9 Comments: Negative: < 0.8 Indeterminate: 0.8 - 0.9 Positive: > 0.9 . The CDC recommends that a positive HCV antibody result be followed up with a HCV Nucleic Acid Amplification test (082125). Hep B Core Ab, IgM Negative (Normal) HBsAg Screen Negative (Normal) Hep A Ab, IgM Negative (Normal) :38 QMOPP-SFKWRYMWYYW-INWQC (52432) Comments: PATIENT WAS FASTINGPERFORMED BY: [employer]70 [facility] [id number] AFP, Serum, Tumor Marker 0.9 ng/mL (Normal) Range: 0.0-8.3 Comments: Nadine ECLIA methodology :38 HEPATIC FUNCTION PANEL Comments: PATIENT WAS FASTINGPERFORMED BY: [employer] [facility] [id number] Information: [id number] DL (44208) ALT (SGPT) 7 [iU]/L (Normal) Range: 0-32 AST (SGOT) 14 [iU]/L (Normal) Range: 0-40 Alkaline Phosphatase, S 113 [iU]/L (Normal) Range: 39-117 Bilirubin, Direct 0.10 mg/dL (Normal) Range: 0.00-0.40 Bilirubin, Total 0.4 mg/dL (Normal) Range: 0.0-1.2 Albumin, Serum 4.1 g/dL (Normal) Range: 3.5-4.8 Protein, Total, Serum 7.5 g/dL (Normal) Range: 6.0-8.5 3-Srt-515729:00 CBC W/AUTO DIFF WBC Comments: PATIENT WAS FASTINGPERFORMED BY: LabCoH[facility] Meadowview HospitalKlojge5785 [facility] [id number] Information: [id number] (55439) Immature Grans (Abs) 0.0 {x10E3/uL} (Normal) Range: [...] 3.77-5.28 WBC 9.5 {x10E3/uL} (Normal) Range: 3.4-10.8 9-Xdb-073263:00 MICROALBUMIN: CREATININE RATIO Comments: PATIENT WAS FASTINGPERFORMED BY: [employer] Cidxnp3708 [facility] [id number] (60144) AND (51435) Microalb/Creat Ratio 206.7 {mg/g_creat} (Abnormal) Range: 0.0-30.0 Comments: ADDENDA: apt today Microalbumin, Urine 46.1 ug/mL (Normal) Creatinine, Urine 22.3 mg/dL (Normal) :00 METABOLIC PANEL, COMPREHENSIVE Comments: PATIENT WAS FASTINGPERFORMED BY: [employer]6370 [address] [facility] HospitalVentec Life SystemsLev[facility] [id number] (93286) ALT (SGPT) 6 [iU]/L (Normal) Range: 0-32 [...] Glucose, Serum 98 mg/dL (Normal) Range: 65-99 1-Ktm-215592:00 LIPID PANEL (63573) Comments: PATIENT WAS FASTINGPERFORMED BY: Alectric[facility] MotorsHudson County Meadowview HospitalXzdfko9687 [facility] [id number] LDL/HDL Ratio 2.6 {ratio_units} (Normal) Range: 0.0-3.2 [...] Cholesterol, Total 192 mg/dL (Normal) Range: 100-199 15-Gnw-542006:01 Serum Creatinine AND GFR Comments: [facility] Icxfavdnwr4520 [address] [facility] [place], [place], [id number] EST GFR - AA 76 mL/min (Normal) Comments: GFR Calc EST GFR 63 mL/min (Normal) Comments: Non- GFR Calc CREAT,SERUM 0.93 mg/dL (Normal) Range: 0.55-1.20 Comments: The validity of the calculated GFR AND GFRAA in patients over70 years has not been determined. Clinical correlation isessential. 85-Csz-888821:22 HgA1C , Office (73633) HgA1C , Office 6.9 % (Normal) Range: 4.6 - 7.1 :47 Blood Glucose , Office (41691) Blood Glucose , Office 284 (Normal) :47 HgA1C , Office (80919) HgA1C , Office 7.1 % (Normal) Range: 4.6 - 7.1 41-Glx-505262:18 Microscopic Examination Comments: PATIENT NOT FASTINGPERFORMED BY: [facility]kal [facility]6370 [facility] [id number] Bacteria Moderate (Abnormal) Mucus Threads Present (Normal) Crystal Type Amorphous Sediment (Normal) Crystals Present (Abnormal) Epithelial Cells (non renal) >10 {/hpf} (Abnormal) Range: 0 - 10 RBC 0-2 {/hpf} (Normal) Range: 0 - 2 WBC 6-10 {/hpf} (Abnormal) Range: 0 - 5 :18 URINALYSIS, W/ MICRO (90854) Comments: PATIENT NOT FASTINGPERFORMED BY: [address] [id number] Microscopic Examination See below: (Normal) Comments: Microscopic was indicated and was performed. Nitrite, Urine Negative (Normal) Urobilinogen,Semi-Qn 0.2 mg/dL (Normal) Range: 0.0-1.9 Bilirubin Negative (Normal) Occult Blood Negative (Normal) Ketones Negative (Normal) Glucose Negative (Normal) Protein 2+ (Abnormal) WBC Esterase 2+ (Abnormal) Appearance Cloudy (Abnormal) Urine-Color Yellow (Normal) pH 7.0 (Normal) Range: 5.0-7.5 Specific [place] 1.014 (Normal) Range: 1.005-1.030 09-Glt-818021:18 PTT (Activated Partial Comments: PATIENT NOT FASTINGPERFORMED BY: [place] 0633270 [facility] [id number] Thromboplastin Time) (24319) aPTT 28 {sec} (Normal) Range: 24-33 Comments: This test has not been validated for monitoring unfractionated heparintherapy. aPTT-based therapeutic ranges for unfractionated heparintherapy have not been established. For general guidelines onHeparin monitoring, refer to the [facility] Directory of Services. 71-Glh-791855:18 PT (Prothrobim Time) (83175) Comments: PATIENT NOT FASTINGPERFORMED BY: [place] 0633270 [facility] [id number] Prothrombin Time 10.3 {sec} (Normal) Range: 9.1-12.0 INR 1.0 (Normal) Range: 0.8-1.2 Comments: Reference interval is for non-anticoagulated patients. . Suggested INR therapeutic range for Vitamin K anta gonist therapy: Standard Dose (moderate intensity therapeutic range): 2.0 - 3.0 Higher intensity therapeutic range 2.5 - 3.5 33-Rmb-357649:18 MICROALBUMIN: CREATININE RATIO Comments: PATIENT NOT FASTINGPERFORMED BY: [facility]6370 [facility] [id number] (12198) AND (76832) Microalb/Creat Ratio 434.0 {mg/g_creat} (Abnormal) Range: 0.0-30.0 Microalbumin, Urine 427.5 ug/mL (Abnormal) Range: 0.0-17.0 Comments: Results confirmed ondilution. Creatinine, Urine 98.5 mg/dL (Normal) Range: 15.0-278.0 93-Qmo-869027:18 CBC with auto diff Comments: PATIENT NOT FASTINGPERFORMED BY: Alectrica MotorsHudson County Meadowview HospitalZzxfug5841 [facility] [id number] Information: [id number] (70155) Immature Grans (Abs) 0.0 {x10E3/uL} (Normal) Range: [...] PANEL, COMPREHENSIVE Comments: PATIENT NOT FASTINGPERFORMED BY: LabCoH[facility] County Meadowview HospitalHjlqxt8970 [facility] [id number] (97457) ALT (SGPT) 9 [iU]/L (Normal) Range: 0-32 [...] Glucose, Serum 100 mg/dL (Abnormal) Range: 65-99 65-Qjp-326202:18 LIPID PANEL (92555) Comments: PATIENT NOT FASTINGPERFORMED BY: LabCoH[facility] Meadowview HospitalCqztpc0461 [facility] [id number] LDL/HDL Ratio 2.6 {ratio_units} (Normal) Range: 0.0-3.2 [...] Cholesterol, Total 199 mg/dL (Normal) Range: 100-199 39-Cws-703672:39 HgA1C , Office (48498) HgA1C , Office 7.6 % (Abnormal) Range: 4.6 - 7.1 94-Cvj-315187:46 Metabolic Panel, Basic Comments: PATIENT NOT FASTINGPERFORMED BY: LabCoM_SOLUTION Zjdfig9739 [facility] [id number] Information: [id number] (78945) Calcium, Serum 9.8 mg/dL (Normal) Range: 8.6-10.2 [...] Glucose, Serum 168 mg/dL (Abnormal) Range: 65-99 98-Job-886052:03 HgA1C , Office (02172) HgA1C , Office 8.9 % (Abnormal) Range: 4.6 - 7.1 36-Eaw-942766:08 TSH (12119) Comments: PATIENT NOT FASTINGPERFORMED BY: [facility]6370 [facility] [id number] TSH 2.650 {uIU/mL} (Normal) Range: 0.450-4.500 77-Wer-858307:08 METABOLIC PANEL, Comments: PATIENT NOT FASTINGPERFORMED BY: LabCoH[facility] Meadowview HospitalMpswbr9502 [facility] [id number] Information: [id number] [facility] (37797) ALT (SGPT) 11 [iU]/L (Normal) Range: 0-32 [...] Glucose, Serum 191 mg/dL (Abnormal) Range: 65-99 4-Yqr-442038:03 BMP CO2 29.0 mmol/L (Normal) Range: 21.0-32.0 [...] <0.05 NEGATIVE0.06 - 0.59 AT RISK OF VT> OR = 0.60 SUGGEST VT :25 HgA1C , Office (55275) HgA1C , Office 7.7 % (Abnormal) Range: 4.6 - 7.1 :02 HgA1C , Office (98434) HgA1C , Office 7.8 % (Abnormal) Range: [...] Cortes M.D.December 04, 2012 at 3:28:15 PM [id number] Signed GP/GP If you are the referring physician and would like to consult with theradiologist who provided this int erpretation, please contact Brian Myles at [phone]. If this radiologist is unavailable, youwill be directed to another radiologist to assist. If you are a patient with a question regard ing this report, pleasecontactyour referring physician directly. Professional Interpretation Provided By: [employer], Phone , These documents contain legally protected [...] 12/04/12 1532 Sign by: Matt Cortes MD 69-Tyh-139354:47 BILAT SCRN DIGITAL & CAD Radiology Report [...] biops y of a clinically suspiciousabnormality. Signed:Sharath rGimm M.D.September 19, 2012 at 5:00:16 PM [id number] Signed RU/RU If you are the referring physician and would like to consult w [facility] theradiologist who provided this interpretation, please contact Brian Fairbanks at [phone]. If this radiologist is unavailable, youwillbe directed to another radiologist to assist. If you are a patient with a question regarding this report, pleasecontactyour referring physician directly. Professional Interpretation Provided By: [employer], Phone , These doc uments contain legally [...] by: Sharath Grimm :16 HgA1C , Office (79778) HgA1C , Office 7.5 % (Abnormal) Range: [...] Cortes M.D.May 08, 2012 at 4:23:24 PM [id number] Signed GP/GP If you are the referring physic vale and would like to consult with theradiologist who provided this interpretation, please contact Brian Myles at [phone]. If this radiologist is unavailable, youwill be directed to ano ther radiologist to assist. If you are a patient with a question regarding this report, pleasecontactyour referring physician directly. Professional Interpretation Provided By: [employer], Phone , These documents contain legally protected [...] 05/08 1628 Sign by: Matt Cortes MD 6-Ikd-623200:19 C-REACTIVE PROTEIN (09561) Comments: stat; PATIENT NOT FASTINGPERFORMED BY: CB [facility] Wqpxze9348 [facility] [id number] C-Reactive Protein, Quant 14.5 mg/L (Abnormal) Range: 0.0-4.9 8-Yuo-901763:19 SED RATE ERYTHROCYTE (57459) Comments: stat; PATIENT NOT FASTINGPERFORMED BY: [facility] Bismii9803 [facility] [id number] Sedimentation Rate-Westergren 22 mm/h (Normal) Range: 0-40 9-Zjl-771601:19 CBC WITH MANUAL DIFF Comments: stat; PATIENT NOT FASTINGPERFORMED BY: [facility] Pqtndu1511 [facility] [id number] Information: ADD [id number] AND DRAW FEE 99 8539 (13655) Immature Grans (Abs) 0.0 {x10E3/uL} (Normal) Range: [...] 3.77-5.28 WBC 14.9 {x10E3/uL} (Abnormal) Range: 4.0-10.5 2-Tfw-553339:19 METABOLIC PANEL, COMPREHENSIVE Comments: PATIENT NOT FASTINGPERFORMED BY: [facility] Nxzzjc2024 [facility] [id number] (06883) ALT (SGPT) 9 [iU]/L (Normal) Range: 0-32 [...] Glucose, Serum 134 mg/dL (Abnormal) Range: 65-99 2-Ywr-402863:40 URINE GISELLE CULTURE-GLORY COL Comments: PATIENT NOT FASTINGPERFORMED BY: [facility] Lpyzmb3084 [facility] [id number] COUNT (87775) Result 1 NG36 (Normal) Comments: No growth in 36 - 48 hours. Urine Culture,Comprehensive Final report (Normal) 5-Rmt-413520:04 Urinalysis, Office (44860) UA - BILIRUBIN Negative (Normal) UA - BLOOD Hemolyzed Trace (Normal) UA - GLUCOSE Negative (Normal) UA - KETONES Negative mg/dL (Normal) UA - LEUKOCYTE ESTERASE Large (Normal) UA - NITRITE Negative (Normal) UA - PH 6.0 (Normal) UA - PROTEIN 100 mg/dL (Normal) UA - SPECIFIC GRAVITY 1.020 (Normal) URINE UROBILINGN GLORY TIMED Normal mg/dL (Normal) 6-Xoh-402036:04 Basic Metabolic Panel (8) Comments: PERFORMED BY: [facility] Nukjiw1579 [facility] [id number] Calcium, Serum 9.6 mg/dL (Normal) Range: 8.6-10.2 [...] Hunter M.D.February 01, 2012 at 7:35:17 PM [id number] Signed TT/TT If you are the referring physician and would like to consult with eradiologist who provided this interpretation, please contact Pam Allred M.D. at [phone]. If this radiologist is unavailable, youwillbe directed to another radiologist to assist. If you are a patient with a question regarding this report, pleasecontactyour referring physician directly. Professional Interpretation Provided By: [employer], Phone , These documen ts contain legally [...] Pam Hunter MD on 02/01/121938 Sign by: [place] ,Pam 17-Oct-201 Osmolality 276 {mOsmol/kg} Comments: PERFORMED BY: Sekal AS[address] [id number] BY: [address] [id number] 213:21 (Abnormal) Range: 280-301 17-Oct-201 Osmolality, Urine 704 {mOsmol/kg} Comments: PERFORMED BY: Sekal AS[address] [id number] BY: [address] [id number] 213:21 (Normal) Comments: 24 hr : 300 - 900 Random: 50 - 1400 After 12hr fluid restriction: >850 17-Oct-201 Sodium, Serum 131 mmol/L Comments: PERFORMED BY: [employer] [id number] BY: [address] [id number] 213:21 (Abnormal) Range: 134-144 17-Oct-201 Sodium, Urine 37 mmol/L Comments: PERFORMED BY: Sekal AS[address] [id number] BY: [address] [id number] 213:21 (Normal) 17-Oct-201 TSH 1.850 {uIU/mL} Comments: PERFORMED BY: Sekal AS[address] [id number] BY: [address] [id number] 213:21 (Normal) Range: 0.450-4.500 01-Qfn-801079:20 HgA1C , Office (45923) HgA1C , Office 6.8 % (Normal) Range: 4.6 - 7.1 7-Gcu-543411:10 L/S SPINE,MIN 4 VIEWS Radiology Report See [...] Signed:Tay JacquesJanuary 08, 2012 at 8:18:09 PM [id number] Signed JL/VENU If you are the referring physician and would like to consult with theradiologist who provided this interpretation, please cont act Lyn Gilmore M.D. at [phone]. If this radiologist is unavailable, you will bedirected to another radiologist to assist. If you are a patient with a question regarding this report, pleasecontactyou r referring physician directly. Professional Interpretation Provided By: [employer], Phone , These documents contain legally protected [...] on 01/08/122022 Sign by: LYN GILMORE MD 6-Tzv-794581:09 HIP, MIN 2 VIEWS Radiology Report See [...] Gilmore M.D.January 08, 2012 at 8:15:08 PM [id number] Signed VENU/VENU If you are the referring physician and would like to consult with theradiologist who provided this interp retation, please contact Lyn Gilmore M.D. at [phone]. If this radiologist is unavailable, you will bedirected to another radiologist to assist. If you are a patient with a question regarding this rep ort, pleasecontactyour referring physician directly. Professional Interpretation Provided By: [employer], Phone , These documents contain legally protected [...] on 01/08/122019 Sign by: LYN GILMORE MD 8-Lko-975504:09 HIP, MIN 2 VIEWS Radiology Report See [...] Gilmore M.D.January 08, 2012 at 8:16:05 PM [id number] Signed JL/JL If you are the referring physician and would like to consult with adrian rosenbaumogmonty who provided this interpretation, please contact Lyn Gilmore M.D. at [phone]. If this radiologist is unavailable, you will bedirected to another radiologist to assist. If you are a patient w ith a question regarding this report, pleasecontactyour referring physician directly. Professional Interpretation Provided By: [employer], Phone , These documents contain legally protected [...] 01/08/122019 Sign by: __ LYN GILMORE MD 87-Xvz-141511:56 Urinalysis, Office (37686) UA - BILIRUBIN Negative (Normal) UA - BLOOD Hemolyzed Trace (Normal) UA - GLUCOSE Negative (Normal) UA - KETONES Negative mg/dL (Normal) UA - LEUKOCYTE ESTERASE Small (Normal) UA - NITRITE Negative (Normal) UA - PH 6.0 (Normal) UA - PROTEIN 100 mg/dL (Normal) UA - SPECIFIC GRAVITY 1.025 (Normal) URINE UROBILINGN GLORY TIMED Normal mg/dL (Normal) 51-Jxu-907845:43 URINE GISELLE CULTURE (GLORY Comments: PATIENT NOT FASTINGPERFORMED BY: [facility] Zioeng6000 [facility] [id number] Information: SRC:UR [id number] COL COUNT) (09741) Result 1 MUG (Normal) Comments: Mixed urogenital flora1,000 Colonies/mL Urine Culture,Comprehensive Final report (Normal) 5-Orn-288898:10 HgA1C , Office (80519) HgA1C , Office 7.3 % (Abnormal) Range: 4.6 - 7.1 1-Ffh-859004:10 Blood Glucose , Office (02100) Blood Glucose , Office 164 (Normal) Plan [...] Indication: Mixed hyperlipidemia Colon cancer : Reviewed Supervisor Receiving And Processing Letter Indication: Colon cancer Adrenal adenoma, left [...] Diabetic retinopathy of right eye : Reviewed Supervisor Receiving And Processing Letter Indication: Diabetic retinopathy of right eye [...] pressure Indication: Hypertension, benign Planned Observations CALCIFIDIOL (52516) VIT D 25Indication: Vitamin D deficiency On: 02-Jyz-301010:51 Request TSH (70430)Indication: Diabetes mellitus type II, controlled On: 73-Ure-895779:51 Request URINALYSIS, W/ MICRO (98893)Indication: Hypertension, benign On: 78-Wvx-832327:50 Request MICROALBUMIN: CREATININE RATIO (97793) AND (87590)Indication: Hypertension, benign On: :50 Request METABOLIC PANEL, COMPREHENSIVE (15115)Indication: Hypertension, benign On: :50 Request CBC W/AUTO DIFF WBC (91700)Indication: Hypertension, benign On: :50 Request LIPOPROTEIN, BLD, BY NMR (46599)Indication: Mixed hyperlipidemia On: :50 Request METABOLIC PANEL, COMPREHENSIVE (10237)Indication: Diabetic nephropathy On: :47 Request HGB A1C (40626)Indication: Diabetic nephropathy On: :47 Request LIPID PANEL (88659)Indication: Mixed hyperlipidemia On: :47 Request METABOLIC PANEL, COMPREHENSIVE (83627)Indication: Hyponatremia with normal extracellular fluid volume On: :46 Request SED RATE ERYTHROCYTE (93901)Indication: Thrombocytosis On: :42 Request C-REACTIVE PROTEIN (89969)Indication: Thrombocytosis On: :42 Request SPEP (46262)Indication: Thrombocytosis On: :41 Request UPEP (44884)Indication: Thrombocytosis On: :41 Request CBC W/AUTO DIFF WBC (57543)Indication: Thrombocytosis On: :41 Request LIPID PANEL (21832)Indication: Mixed hyperlipidemia On: :25 Request CBC with auto diff (19317)Indication: Diabetes mellitus type II, controlled On: :25 Request METABOLIC PANEL, COMPREHENSIVE (76787)Indication: Diabetes mellitus type II, controlled On: 65-Rsz-402634:25 Request Hemoglobin Glyclated (HGB A1C) (52557)Indication: Diabetes mellitus type II, controlled On: 21-Urh-016350:25 Request LIPID PANEL (26279)Indication: Mixed hyperlipidemia On: :58 Request Hemoglobin Glyclated (HGB A1C) (91673)Indication: Diabetic nephropathy On: 9-Csk-590994:58 Request MICROALBUMIN: CREATININE RATIO (16612) AND (74543)Indication: Diabetic nephropathy On: :57 Request METABOLIC PANEL, COMPREHENSIVE (50145)Indication: Diabetic nephropathy On: 5-Deh-950015:57 Request Potassium Serum (28334)Indication: Hypokalemia (Renamed from Decreased potassium in the blood) On: 81-Fye-695409:47 Request CBC with auto diff (04405)Indication: Hypertension, benign On: 20-Rpv-494918:41 Request Hemoglobin Glyclated (HGB A1C) (21448)Indication: Diabetes mellitus type II, controlled On: 89-Xkp-066872:40 Request METABOLIC PANEL, COMPREHENSIVE (23296)Indication: Hypertension, benign On: 10-Rqu-202828:40 Request LIPID PANEL (86103)Indication: Mixed hyperlipidemia On: 92-Rsj-607559:40 Request URINE GISELLE CULTURE-GLORY COL COUNT (35635)Indication: Other abnormal finding of urine On: 64-Bta-241984:11 Request HgA1C , Office (84842)Indication: Diabetes type II, uncontrolled, ophthalmic comp On: 77-Vms-21189:43 Request CBC W/AUTO DIFF WBC (96457)Indication: Diabetes type II, uncontrolled, ophthalmic comp On: 69-Pvz-457248:35 Request MICROALBUMIN: CREATININE RATIO (72586) AND (64523)Indication: Diabetic nephropathy On: 50-Nfm-989006:35 Request METABOLIC PANEL, COMPREHENSIVE (25037)Indication: Diabetes type II, uncontrolled, ophthalmic comp On: 54-Uhu-030742:35 Request LIPID PANEL ([id number])Indication: Mixed hyperlipidemia On: 66-Leu-807777:35 Request CBC W/AUTO DIFF WBC ([id number])Indication: Diabetic nephropathy On: 6-Ocp-599101:44 Request METABOLIC PANEL, COMPREHENSIVE (11573)Indication: Diabetic nephropathy On: 1-Ruy-519695:44 Request LIPID PANEL ([id number])Indication: Mixed hyperlipidemia On: 9-Kdc-072279:44 Request HgA1C , Office (21112)Indication: Diabetes type II, uncontrolled, ophthalmic comp On: 70-Rcn-85490:48 Request LIPID PANEL ([id number])Indication: Mixed hyperlipidemia On: 80-Wdv-473750:53 Request CBC WITH MANUAL DIFF ([id number])Indication: Diabetes type II, uncontrolled, ophthalmic comp On: 38-Xyo-501378:53 Request METABOLIC PANEL, COMPREHENSIVE (80190)Indication: Diabetes type II, uncontrolled, ophthalmic comp On: 04-Usg-299428:53 Request MICROALBUMIN: CREATININE RATIO (16105) AND (18183)Indication: Diabetic nephropathy On: :53 Request TSH (06164)Indication: Depression On: :10 Request MICROALBUMIN: CREATININE RATIO (49200) AND (37461)Indication: Diabetes type II, uncontrolled, ophthalmic comp On: : Request METABOLIC PANEL, COMPREHENSIVE (11901)Indication: Diabetes type II, uncontrolled, ophthalmic comp On: : Request LIPID PANEL ([id number])Indication: Mixed hyperlipidemia On: : Request METABOLIC PANEL, COMPREHENSIVE (98642)Indication: Hypertension, benign On: : Request CBC WITH MANUAL DIFF (72010)Indication: Hypertension, benign On: : Request LIPID PANEL (65809)Indication: Mixed hyperlipidemia On: : Request LIPID PANEL (17845)Indication: Mixed hyperlipidemia On: : Request METABOLIC PANEL, COMPREHENSIVE (01139)Indication: Hyponatremia with normal extracellular fluid volume On: 7-Zfj-724319:20 Request MICROALBUMIN: CREATININE RATIO (78966) AND (81360)Indication: Diabetic nephropathy On: : Request CBC WITH MANUAL DIFF (21495)Indication: Diabetes type II, uncontrolled, ophthalmic comp On: :30 Request METABOLIC PANEL, COMPREHENSIVE (77085)Indication: Diabetes type II, uncontrolled, ophthalmic comp On: :30 Request LIPID PANEL (88006)Indication: Mixed hyperlipidemia On: :30 Request LIPID PANEL (45585)Indication: Mixed hyperlipidemia On: :08 Request MICROALBUMIN: CREATININE RATIO (34984) AND ([id number])Indication: Diabetic nephropathy On: : Request METABOLIC PANEL, COMPREHENSIVE (46863)Indication: Hypertension, benign On: : Request URINE GISELLE CULTURE (GLORY COL COUNT) (34324)Indication: Abnormal urine On: : Request METABOLIC PANEL, COMPREHENSIVE (18439)Indication: Hyponatremia with normal extracellular fluid volume On: 48-Ynx-059812:01 Request Hemoglobin Glyclated (HGB A1C) (18040)Indication: Diabetes type II, uncontrolled, ophthalmic comp On: 04-Nbn-923660:00 Request LIPID PANEL (18209)Indication: Hypertension, benign On: :58 Request METABOLIC PANEL, COMPREHENSIVE (19406)Indication: Hypertension, benign On: :58 Request URINALYSIS, W/ MICRO (75651)Indication: Hypertension, benign On: :43 Request CBC WITH MANUAL DIFF ([id number])Indication: Hypertension, benign On: :43 Request METABOLIC PANEL, COMPREHENSIVE (17422)Indication: Hyponatremia with normal extracellular fluid volume On: :43 Request LIPID PANEL (76979)Indication: Mixed hyperlipidemia On: :43 Request Metabolic Panel, Basic (63264)Indication: Hyponatremia with normal extracellular fluid volume On: 21-Pcm-879221:21 Request Comments: 2 weeks TSH ([id number])Indication: Hyponatremia with normal extracellular fluid volume On: :58 Request OSMOLALITY URINE ([id number])Indication: Hyponatremia with normal extracellular fluid volume On: :58 Request OSMOLALITY BLOOD ([id number])Indication: Hyponatremia with normal extracellular fluid volume On: :58 Request SODIUM URINE ([id number])Indication: Hyponatremia with normal extracellular fluid volume On: :58 Request SODIUM SERUM ([id number])Indication: Hyponatremia with normal extracellular fluid volume On: :58 Request MICROALBUMIN: CREATININE RATIO (73072) AND (07798)Indication: Hypertension, benign On: 67-Qsh-029416:57 Request CBC WITH MANUAL DIFF ([id number])Indication: Hypertension, benign On: :56 Request METABOLIC PANEL, COMPREHENSIVE (51085)Indication: Hypertension, benign On: :56 Request LIPID PANEL (43087)Indication: Mixed hyperlipidemia On: 22-Rnu-817285:56 Request TSH ([id number])Indication: Depression On: :31 Request URINALYSIS, W/ MICRO (01917)Indication: Diabetes type II, uncontrolled, ophthalmic comp On: :31 Request MICROALBUMIN: CREATININE RATIO (52884) AND (04993)Indication: Diabetes type II, uncontrolled, ophthalmic comp On: : Request CBC WITH MANUAL DIFF ([id number])Indication: Diabetes type II, uncontrolled, ophthalmic comp On: : Request METABOLIC PANEL, COMPREHENSIVE (27719)Indication: Hypertension, benign On: : Request LIPID PANEL (53345)Indication: Mixed hyperlipidemia On: : Request Planned Encounters Medical; 3 Month FU - 30 mins per pop up On: 14-Jun-2018 13:45 [facility] Kathy Noguera DO, DO, Kathleen Planned Procedures Flu Vaccine (Quadrivalent) On: 15-Mar-2018 Intent 10277Rb: Kathy Noguera DO Comments: Lot #[id number]/30/2019Site-L dltd, IMDose prefilled syringegiven by:CHAPIS Barone reviewed and ABN signed Kathy Noguera DO PNEUM VAC ADLT/IMUMNOSPR, On: 22-Aug-2017 Intent SBC/INTRM (89012)By: Chuckie Comments: 0.5 cc given lt arm lot [id number] 12/12/18 Kathy TOMAS DO, Kathleen [facility] On: 22-Aug-2017 Intent COUNSELING FOR OBESITY, 15 MINUTES (G0447)By: Kathy Noguera DO, DO, Kathleen SCREENING DIGITAL On: 22-Aug-2017 Intent TOMOSYNTHESIS OF BREAST (95799)By: Kathy Noguera DO, DO, Kathleen ELECTROCARDIOGRAM, COMPLETE On: 09-Jul-2017 Intent (ECG) (48945)By: Chuckie TOMAS, Comments: nsr no acute chg-- wavy baseline from parkinson and tremor-- poor R wave progression -non speicifce st flattening Kathy Hebert DO CT SCAN OF ABDOMEN WITH On: 04-Apr-2017 Intent CONTRAST (65094)By: Kathy Noguera DO, DO, Kathleen Flu Vaccine (Quadrivalent) On: 11-Dec-2016 Intent 57412Df: Kathy Noguera DO Comments: Lot:[id number]:09/17/17Amt:0.5mlRoute:IMSite: L DltdGiven By: CHAPIS Montiel signed Kathy Noguera DO SCREENING DIGITAL On: 27-Sep-2016 Intent TOMOSYNTHESIS OF BREAST (38846)By: Kathy Noguera DO, DO, Kathleen SCREENING DIGITAL On: 25-Sep-2016 Intent TOMOSYNTHESIS OF BREAST (87383)By: Sachi Jordan [facility] On: 30-Jun-2016 Intent COUNSELING FOR OBESITY, 15 MINUTES (G0447)By: Kathy Noguera DO, DO, Kathleen ELECTROCARDIOGRAM, COMPLETE On: 14-Jun-2016 Intent (ECG) (32601)By: Chuckie TOMAS, Comments: nsr no acute chg Kathy Hebert DO DEXA SCAN AXIAL SKELETON On: 14-Mar-2016 Intent (77520)By: Prateek Swift MD Flu Vaccine (Quadrivalent) On: 07-Dec-2015 Intent 17938Mv: Prateek Swift MD Comments: Lot:[id number]:09/29/16Dose:0.5mLRoute:IMSite:L DltdGiven By:ELIZABETH signed CT - Abdomen & Pelvis (IV On: 08-Sep-2015 Intent Contrast Needed)By: Emmanuelle Quiñonez DO Cartoid DopplerBy: Khang TOMAS, On: 08-Sep-2015 Intent Emmanuelle A MAMMOGRAM, SCREENING, BOTH On: 08-Sep-2015 Intent BREAST (55146)By: Emmanuelle Quiñonez DO Flu Vaccine (Quadrivalent) On: 24-Feb-2015 Intent 55104Op: Emmanuelle Quiñonez DO Comments: lot [id number]: 09/30/2015site/route L mary kate, IMamt 0.5mlVIS and ABN signed when applicableChel[place], [facility] OF INFLUENZA On: 24-Feb-2015 Intent VIRUS VACCINE (G0008)By: Emmanuelle Quiñonez DO Radiology - Lumbar SpineBy: On: 18-Nov-2014 Intent Emmanuelle Quiñonez DO MAMMOGRAM, SCREENING, BOTH On: 12-Aug-2014 Intent BREAST (07914)By: Emmanuelle Quiñonez DO Cartoid DopplerBy: Khang TOMAS, On: 12-Aug-2014 Intent Emmanuelle A EKG (63985)By: Khang TOMAS, On: 17-Jun-2014 Intent Emmanuelle A Comments: ekg showed normal sinus rhythym, normal axis, no acute st/t wave changes Prevnar 13 (09304)By: Khang On: 20-Mar-2014 Intent DO, Emmanulele A Comments: [id number] arm, IMAS BILATERAL MAMMOGRAMS On: 16-Sep-2013 Intent (87027)By: Emmanuelle Quiñonez DO CT - Brain/Head (IV Contrast On: 22-Aug-2013 Intent Needed)By: Emmanuelle Quiñonez DO EEGBy: Emmanuelle Quiñonez DO A On: 22-Aug-2013 Intent Eprescribed prescriptions On: 22-Aug-2013 Intent (G8553)By: Emmanuelle Quiñonez DO Eprescribed prescriptions On: 10-Jun-2013 Intent (G8553)By: Emmanuelle Quiñonez DO Eprescribed prescriptions On: 04-Mar-2013 Intent (G8553)By: Kirstne Cardona Pulse Oximetry (73614)By: On: 04-Mar-2013 Intent Kirsten Cardona Comments: 96% IMMUNIZ ADMNIN, 1 VAC, On: 21-Jan-2013 Intent SNGL/COMBO (55072)By: Sergio Comments: lot # [id number]- 6.2014site- L dltdroute-IMdose- 0.5mlVIS and ABN signedCHendersRadha mary LPN, LPN FLU VAC, SPLIT, >3 YEARS, On: 21-Jan-2013 Intent INTRAMUSC (60570)By: Radha Hill LPN Venous Doppler - LeftBy: Khang On: 04-Dec-2012 Intent DO Emmanuelle A EKG (55127)By: Brendan, On: 04-Dec-2012 Intent Kirsten Comments: ekg showed normal sinus rhythym, normal axis, no acute st/t wave changes Cartoid DopplerBy: Khang TOMAS, On: 04-Dec-2012 Intent Emmanuelle A Comments: oct Radiology - Knee - Left - On: 04-Dec-2012 Intent Weight BearingBy: Emmanuelle Quiñonez DO MAMMOGRAM, SCREENING, BOTH On: 02-Sep-2012 Intent BREASTS (42050)By: Emmanuelle Quiñonez DO Eprescribed prescriptions On: 02-Sep-2012 [...] HOLLEY (Ankle Brachial Index) On: 17-Jan-2012 Intent (80057)By: Emmanuelle Quiñonez DO Cartoid DopplerBy: Khang TOMAS, On: 17-Jan-2012 Intent Emmanuelle A ADMINISTRATION OF INFLUENZA On: 17-Jan-2012 Intent VIRUS VACCINE (G0008)By: Comments: Lot #:[id number] date:06.12Amount given:prefilled syringeSite given:L Dltd, IMGiven by: DEBORAH Hernandez signed Kirsten Cardona FLU VAC, SPLIT, >3 YEARS, On: 17-Jan-2012 Intent INTRAMUSC (06201)By: Kirsten Cardona Carotid DopplerBy: Khang TOMAS, On: 12-Jan-2012 Intent Emmanuelle A Comments: Please get results to Dr Rowan Redd Phone- [phone] Radiology - Hip - On: 08-Jan-2012 Intent BilateralBy: Emmanuelle Quiñonez DO Comments: weight bearing Radiology - Lumbar SpineBy: On: 08-Jan-2012 Intent Emmanuelle Quiñonez DO EKG (93723)By: Brendan, On: 03-Oct-2011 Intent Kirsten Comments: ekg showed normal sinus rhythym, normal axis, no acute st/t wave changes TDAP VACCINE >7 IM (16971)By: On: 03-Oct-2011 Intent Kirsten Cardona Comments: Lot #[id number]/22/14Site-left deltoidgiven by: Drake Colón LPN PNEUM VAC ADLT/IMUMNOSPR, On: 03-Oct-2011 Intent [facility] (98022)By: Brendan, Comments: received elsewhere in 2012 Kirsten [...] Mixed hyperlipidemia : DISCONTINUED - LIPID PANEL (15681) Indication: Mixed hyperlipidemia Hypertension, benign : Patient [...] done last July) and [facility]oscopy (07[facility] The patient does not have durable power of managing attorney or living will. The p atient has noticed dropping activities and interests, getting bored, feeling helpless, staying at home rather than doing something new or going out, having problems with memory than others and lack of e nergy. Other providers contributing to the patient's care are other: (nephrology and vision screen done in [place] in march).Encounter Diagnosis: BMI 35.0-35.9,adult, Non-smoker, Encounter [...] patient does not have durable power of managing attorney or living will. The patient has [...] of procedure: (06/22/14 End: 18-Jun-2014 22:24 at [facility] with Dr. Kole Tellez) . There have [...] Diabetic neuropathy (357.2) [facility] Payers [place]/[employer]icare Amador Owens; a guarantor
--- OUTSIDE RECORDS SUMMARY | 2018-06-21 22:54 | XMS RPT_ITS ---
:1945 Author Organization OHIP Care Team Providers Name Role Phone Kathy Noguera DO Attending Unavailable Fast DO, Emmanuelle A Referring Unavailable Chuckie Kathy TOMAS Consulting Unavailable Zachery, Jayaprakash Attending Unavailable Zachery, Jayaprakash Referring Unavailable Chuckie, Kathy Primary Care Unavailable ChuckieJanetKathy Attending Unavailable Chuckie, Kathy Referring Unavailable Chuckie, Kathy Primary Care Unavailable ChuckieFernKathy Attending Unavailable Chuckie, Kathy Primary Care Unavailable Zachery, Jayaprakash Attending Unavailable Chuckie, Kathy Primary Care Unavailable Zachery, Jayaprakash Referring Unavailable Chuckie, Kathy Attending Unavailable Chuckie, Kathy Primary Care Unavailable PROBLEMS PROBLEMS DATE TYPE CONDITION / CODE ATTENDING STATUS SOURCE 04/24/2018 Unknown I10 - Essential Zachery, Active Tiffanie (primary) [facility] hypertension / Hospital I10(ICD-10) Repository 04/17/2018 Unknown E87.1 - Zachery, Active [place] Hypo-osmolality [facility] and hyponatremia / Hospital E87.1(ICD-10) Repository 04/11/2018 Unknown E55.9 - Vitamin D Chuckie, Kathy Active [place] deficiency, Community unspecified / Hospital E55.9(ICD-10) Repository 06/20/2017 Unknown D35.02 - Benign Kathy Noguera Active Tiffanie neoplasm of left Community adrenal gland / Hospital D35.02(ICD-10) Repository PROCEDURES PROCEDURES No Procedure Records FoundRESULTS RESULTS BASIC METABOLIC Collected: 04/24/2018 Status: F Source: TIFFANIE PROFILE (BMP) 8:09 AM [facility] REPOSITORY TYPE CODE TESTS RESULT OUT OF RANGE REFERENCE UNITS LAB L501.0100 74-106 mg/dL Normal GLU 87 Result Comment: Please note revised GLUCOSE reference range effective 2017. LAB L501.1000 7-18 mg/dL Normal BUN 17 LAB L501.1100 0.55-1.02 mg/dL Normal CREAT,SERUM 0.72 Result Comment: The validity of the calculated GFR AND GFRAA in patients over 70 years has not been determined. Clinical correlation is essential. LAB L501.1110 >60 mL/min Normal EST GFR 85 Result Comment: Non- GFR Calc LAB L501.1115 >60 mL/min Normal EST GFR - AA 103 Result Comment: GFR Calc LAB L501.1300 10-20 RATIO High BUN/CRE 23.7 LAB L501.2200 8.5-10.1 mg/dL CA Normal 8.8 LAB L501.5300 136-145 mmol/L Low NA 131 LAB L501.5600 3.5-5.1 mmol/L K Normal 3.9 LAB L501.5900 98-107 mmol/L Low CL 93 LAB L501.6100 21.0-32.0 mmol/L Normal CO2 29.0 LAB L501.6200 5-15 Normal GAP 9 Performed By: #### L500.2500 #### [facility] [address] [place], [place], [address] BASIC METABOLIC Collected: 04/17/2018 Status: F Source: TIFFANIE PROFILE (BMP) 8:05 AM [facility] REPOSITORY TYPE CODE TESTS RESULT OUT OF RANGE REFERENCE UNITS LAB L501.0100 74-106 mg/dL High GLU 132 Result Comment: Fasting Glucose result greater than or equal to 126 mg/dL suggests DIABETES MELLITUS per A.D.A. criteria. Please note revised GLUCOSE reference range effective 2017. LAB L501.1000 7-18 mg/dL Normal BUN 14 LAB L501.1100 0.55-1.02 mg/dL Normal CREAT,SERUM 0.72 Result Comment: The validity of the calculated GFR AND GFRAA in patients over 70 years has not been determined. Clinical correlation is essential. LAB L501.1110 >60 mL/min Normal EST GFR 84 Result Comment: Non- GFR Calc LAB L501.1115 >60 mL/min Normal EST GFR - AA 102 Result Comment: GFR Calc LAB L501.1300 10-20 RATIO Normal BUN/CRE 19.4 LAB L501.2200 8.5-10.1 mg/dL CA Normal 8.6 LAB L501.5300 136-145 mmol/L Low NA 128 LAB L501.5600 3.5-5.1 mmol/L K Normal 3.5 LAB L501.5900 98-107 mmol/L Low CL 92 LAB L501.6100 21.0-32.0 mmol/L Normal CO2 26.0 LAB L501.6200 5-15 Normal GAP 10 Performed By: #### L500.2500 #### [facility] [address] [place], [place], [id number] CBC W/DIFF, AUTOMATED Collected: 03/11/2018 Status: F Source: [place] 7:23 AM [facility] REPOSITORY TYPE CODE TESTS RESULT OUT OF RANGE REFERENCE UNITS LAB L100.1000 4.4-11.0 K/mm3 Normal WBC 9.7 LAB L100.1200 4.2-5.4 M/mm3 Normal RBC 4.68 LAB L100.1300 12.0-15.0 g/dl Normal HGB 13.4 LAB L100.1400 37-47 % Normal HCT 40.6 LAB L100.1500 81-99 fL Normal MCV 86.8 LAB L100.1600 27.0-32.0 pg Normal MCH 28.6 LAB L100.1700 32-36 g/gl Normal MCHC 33.0 LAB L100.1810 11.6-14.6 % Normal RDW CV 13.2 LAB L100.1820 35.1-43.9 fl Normal RDW SD 41.1 LAB L100.1900 150-450 K/mm3 Normal PLT 416 LAB L100.2000 6.2-12.0 fl Normal MPV 9.2 LAB L100.2100 47-70 % Normal NEUT% 66.4 LAB L100.2200 19-41 % Low LY% 17.0 LAB L100.2300 0-10 % High MONO% 10.9 LAB L100.2400 0-5 % Normal EO% 4.8 LAB L100.2500 0-1 % Normal BASO% 0.7 LAB L100.2550 0.0-0.9 % Normal IM GRAN % 0.200 Result Comment: IG% - Immature Granulocytes (promyelocytes, myelocytes and metamyelocytes) > 1% indicates that a LEFT SHIFT is Present. LAB L100.2620 2.0-7.7 X10 3/uL Normal Absolute Neut 6.5 LAB L100.2720 0.83-4.51 X10 3/ul Normal Absolute Lymph 1.65 Performed By: #### L100.0100 #### [facility] [address] [place], [address] VITAMIN D,25 HYDROXY Collected: 03/11/2018 Status: F Source: [place] 7:23 AM [facility] REPOSITORY TYPE CODE TESTS RESULT OUT OF REFERENCE UNITS RANGE LAB L506.1000 29.95-100.01 ng/mL Low Vitamin D 11.8 25-OH Result Comment: Vitamin D 25(OH) Status Range Deficiency <20 ng/mL (50nmol/L) Insuffciency 20 - 30 ng/mL (50 - 75 nmol/L) Sufficiency 30 - 100 ng/mL (75 - 250 nmol/L) Toxicity >100 ng/mL (>250 nmol/L) Performed By: #### L506.1000 #### [facility] [address] [place], [address] COMPREHENSIVE METABOLIC Collected: 03/11/2018 Status: F Source: [facility] 7:23 AM [facility] REPOSITORY TYPE CODE TESTS RESULT OUT OF RANGE REFERENCE UNITS LAB L501.0100 74-106 mg/dL Low GLU 46 Result Comment: Glucose result less than 50 mg/dL suggests HYPOGLYCEMIA. Please note revised GLUCOSE reference range effective 2017. LAB L501.1000 7-18 mg/dL Normal BUN 11 LAB L501.1100 0.55-1.02 mg/dL Normal CREAT,SERUM 0.69 Result Comment: The validity of the calculated GFR AND GFRAA in patients over 70 years has not been determined. Clinical correlation is essential. LAB L501.1110 >60 mL/min Normal EST GFR 89 Result Comment: Non- GFR Calc LAB L501.1115 >60 mL/min Normal EST GFR - AA 107 Result Comment: GFR Calc LAB L501.1300 10-20 RATIO Normal BUN/CRE 15.9 LAB L501.1500 6.4-8.2 g/dL T Normal PROT 8.0 LAB L501.1800 3.2-5.0 g/dL Normal ALB 3.4 LAB L501.1950 2.2-4.2 g/dL High GLOB 4.6 LAB L501.2000 0.9-2.4 RATIO Low A/G 0.7 LAB L501.2200 8.5-10.1 mg/dL CA Normal 8.9 LAB L501.4100 15-37 U/L Normal AST 16 LAB L501.4305 45-117 U/L Normal ALK P 103 LAB L501.4405 13-56 U/L Low ALT 10 LAB L501.4600 0.20-1.00 mg/dL T Normal BILI 0.60 LAB L501.5300 136-145 mmol/L Low NA 134 LAB L501.5600 3.5-5.1 mmol/L K Normal 3.7 LAB L501.5900 98-107 mmol/L Low CL 94 LAB L501.6100 21.0-32.0 mmol/L Normal CO2 28.0 LAB L501.6200 5-15 Normal GAP 12 Performed By: #### L500.4050, L501.9520 #### [facility] [address] [place], [place], [id number] THYROID STIM HORMONE Collected: 03/11/2018 Status: F Source: TIFFANIE (TSH) 7:23 AM [facility] REPOSITORY TYPE CODE TESTS RESULT OUT OF RANGE REFERENCE UNITS LAB L501.9520 0.358-3.74 uIU/mL Normal TSH 2.93 Performed By: #### L500.4050, L501.9520 #### [facility] [place], [address] NMR LIPOPROFILE Collected: 03/11/2018 Status: F Source: TIFFANIE 7:23 AM [facility] REPOSITORY TYPE CODE TESTS RESULT OUT OF RANGE REFERENCE UNITS LAB L3500.0250 LIPIDS Normal . LAB L3500.0300 100-199 mg/dL CHOLESTEROL Normal TOT 106 LAB L3500.0350 0-99 mg/dL LDL-C Normal 37 Result Comment: Optimal < 100 Above optimal 100 - 129 Borderline 130 - 159 High 160 - 189 Very high > 189 LDL-C is inaccurate if patient is non-fasting. LAB L3500.0400 >39 mg/dL HDL-C Normal 50 LAB L3500.0450 0-149 mg/dL TRIGLYCERIDES Normal 95 LAB L3500.0560 <1000 nmol/L LDL-P Normal 342 Result Comment: Low < 1000 Moderate 1000 - 1299 Borderline-High 1300 - 1599 High 1600 - 2000 Very High > 2000 LAB L3500.0575 Normal LD HD PARTICLES . LAB L3500.0580 >=30.5 umol/L Normal HDL-P TOTAL 33.9 LAB L3500.0585 <=527 nmol/L Normal SMALL LDL-P 151 LAB L3500.0590 >20.5 nm Low LDL SIZE 20.4 Result Comment: INTERPRETATIVE INFORMATION PARTICLE CONCENTRATION AND SIZE <--Lower CVD Risk Higher CVD Risk--> LDL AND HDL PARTICLES Percentile in Reference Population HDL-P (total) High 75th 50th 25th Low >34.9 34.9 30.5 26.7 <26.7 Small LDL-P Low 25th 50th 75th High <117 117 527 839 >839 LDL Size <-Large (Pattern A)-> <-Small (Pattern B)-> 23.0 20.6 20.5 19.0 Small LDL-P and LDL Size are associated with CVD risk, but not after LDL-P is taken into account. These assays were developed and their performance characteristics determined by [employer]. These assays have not been cleared by the [place] Food and Drug Administration. The clinical utility of these laboratory values have not been fully established. LAB L3500.0595 Normal INS RES/DIAB RK . LAB L3500.0875 <=45 Normal LP-IR SCORE 35 Result Comment: INSULIN RESISTANCE MARKER <--Insulin Sensitive Insulin Resistant--> Percentile in Reference Population Insulin Resistance Score LP-IR Score Low 25th 50th 75th High <27 27 45 63 >63 LP-IR Score is inaccurate if patient is non-fasting. The LP-IR score is a laboratory developed index that has been associated with insulin resistance and diabetes risk and should be used as one component of a physician's clinical assessment. The LP-IR score listed above has not been cleared by the [place] Food and Drug Administration. Performed at: [facility] [id number] Industrial Cleaning Technician: Thaddeus Glasgow MD, Phone: [phone] Performed By: #### L3500.0000 #### [facility] (refer to report for specific site) refer to report for address and phone number SCREENING MAMM (CAD), Observed: 10/19/2017 Status: F Source: [facility] 12:46 PM [facility] REPOSITORY [facility] Imaging Services [address] [place] [address] SCREENING MAMM (CAD), BIL MR#: [id number] Acct: [id number] Name: EUGENE OWENS Rep #: [id number] : 1945 F 71 From: Matt Cortes MD PCP: Kathy Noguera DO Status: [facility] Study: SCREENING MAMM (CAD), BILAT Date of Exam: 10/19/17 Exam# [id number] Ordering Dr: Kathy Noguera DO MAMMOGRAPHY - BILATERAL SCREENING REASON FOR EXAM: Female, 71 years old. Routine annual screening examination. PERTINENT HISTORY: Sister with breast cancer. TECHNIQUE: Digital bilateral breast kane (3D mammographic acquisition) in the CC and MLO projections. 2-D mediolateral oblique (MLO) and craniocaudad (CC) views of both breasts were obtained. CAD: Full Field Digital Mammography with Computer Added Detection was performed. COMPARISON: Comparison is made with prior study dated October 04, 2016 and October 01, 2015. FINDINGS: Breast Composition: The breasts are almost entirely fatty. There are no dominant masses or suspicious calcifications. Stable appearance of the scattered secretory type calcifications in the right breast. No other significant abnormalities are identified. There has been no significant change since the prior study. BI/SCREENING MAMM (CAD), BILAT IMPRESSION: Stable bilateral screening mammogram. Yearly follow-up mammogram recommended. (A) ASSESSMENT CATEGORY: BIRADS Category 2: Benign. A letter regarding these results will be sent to the patient by the facility within 30 days. Approximately 10% of breast cancers are not detected by mammography. A normal mammogram should not delay biopsy of a clinically suspicious abnormality. [id number] Electronically Signed: Matt Cortes MD at 14:43 EDT Tel [phone], Service support , CC: Kathy Noguera DO [employer] Librarian: Signed CREATININE FINGERSTICK Collected: 06/20/2017 Status: F Source: [place] 2:05 PM [facility] REPOSITORY TYPE CODE TESTS RESULT OUT OF RANGE REFERENCE UNITS LAB L9100.0210 0.55-1.02 mg/dL Normal CREATININE WB 0.6 LAB L9100.0220 >60 mL/min EGFR WB Normal > 60.0000 Performed By: #### L9100.0200 #### [facility] Point of Care [address] [place] [address] ABDOMEN WITH IV Observed: 06/20/2017 Status: F Source: [place] CONTRAST 1:55 PM [facility] REPOSITORY [facility] Imaging Services [address] [place] [address] Abdomen WITH IV Contrast MR#: [id number] Acct: [id number] Name: EUGENE OWENS Rep #: [id number] : 1945 F 71 From: Levar Meadows MD PCP: Kathy Noguera DO Status: REG CLI Study: Abdomen WITH IV Contrast Date of Exam: 06/20/17 Exam# [id number] Ordering Dr: Kathy Noguera DO STUDY: CT ABDOMEN WITH CONTRAST REASON FOR EXAM: Female, 71 years old. Follow-up: cancer, left adrenal adenoma. RADIATION DOSAGE (If Supplied By Facility): CTDIvol = ( 16.64 ) mGy, DLP = ( 663.18 ) mGycm TECHNIQUE: Transaxial images were obtained post I.V. administration [...] of the coronary arteries and visualized distal descending thoracic aorta. Dense calcification also seen in the mitral valve annulus. The mildly elongated right lobe of liver measures 18.9 cm in height. There are occasional calcified granulomata in the liver, but no new focal liver mass. The [...] 1.35 cm low attenuation left adrenal mass, consistent with an adrenal adenoma. Normal right adrenal gland. Normal right kidney. Normal left kidney. No hydronephrosis. Normal visualized stomach. Normal small intestine. There are a few distal left colonic diverticula consistent with diverticulosis. The appendix is visualized and appears normal. There is stable moderate atherosclerotic calcification of the abdominal aorta and visualized proximal iliac arteries, without a demonstrated aneurysm. There is 25-50% diameter atherosclerotic narrowing of the right renal artery ostium, while greater than 70% atherosclerotic stenosis suggested on the left. Normal inferior vena cava. Normal retroperitoneum. Midline ventral hernia near the umbilicus is only partially included in the iofiq-pz-xkow, but again appears to contain nondistended small bowel segments. There are stable diffuse degenerative changes of the visualized spine, an 18-19 degrees levoscoliosis centered at T12. Grade 1-2 [...] left. 7. Stable findings of old calcified granulomatous disease. 8. Distal left colonic diverticulosis without acute diverticulitis. No sign of bowel obstruction. The visualized appendix is normal. 9. No hydronephrosis. 10. Multilevel degenerative changes of the spine, with levoscoliosis centered at T12. Grade 1-2 anterolisthesis of L4 on L5 is mildly worsened. Electronically Signed: Kevin Meadows MD at 20:01 EDT , Service support , CC: Kathy Noguera DO [employer] Librarian: Signed ALLERGIES ALLERGIES DATE TYPE / CODE NAME / CODE REACTION SEVERITY SOURCE 08/05/2013 Drug codeine/F006 Vomiting Unknown [facility] Allergy/4160 667600([facility] 19360(SNOMED M) Repository CT) ENCOUNTERS ENCOUNTERS ADMIT/DISCHARGE ACCOUNT ADMITTING ENCOUNTER LOCATION SOURCE NUMBER CLASS 04/24/2018 [id number] Ambulatory [address]:LAB.FUTUR Repository E 04/17/2018 [id number] Ambulatory Tiffanie Tiffanie 3 [facility] ing:MTLAB Repository 03/15/2018 [id number] Ambulatory Building:[facility]IP Practices Repository 03/11/2018 [id number] Ambulatory [place] Tiffanie 7 [facility] ing:MTLAB Repository 10/19/2017 [id number] Ambulatory Tiffanie Tiffanie 4 [facility] ing:OPBI Repository 06/20/2017 [id number] Ambulatory Tiffanie Tiffanie 2 [facility] ing:CT Repository PAYERS PAYERS ENCOUNTER GUARANTOR PAYER SUBSCRIBER SOURCE 04/24/2018 EUGENE Song NICOLA S Primary EUGENE ROGERSB: [place] Insurance:ANTHEM [id number] Community [place] [address]Bhm: Number: Repository [id number] (HP) Date:0631-54-00[address] [place] [address]FY: 04/24/2018 Secondary NOT GIVENUNK [place]anie Insurance:SELF PAY [facility] Number: Effective Repository Date:2018-04-22 04/17/2018 EUGENE Song [id number] S Primary EUGENE ROGERSB: [place] Insurance:ANTHEM [id number] Community [place] [address]Rzw: Number: Repository [id number] () Date:[id number] [address] [place] [address]YZ: 04/17/2018 Secondary NOT GIVENUNK Tiffanie Insurance:SELF PAY [facility] Number: Effective Repository Date:2018-04-17 03/15/2018 Eugene SameerB: Primary Eugene UnderwoodDarrylB: OHIP Practices [id number] Insurance:[place]/Medi [id number] Repository [facility], Number: [place], [place] [address]Fqp: [id number] [place] [address]Zky: Date:7826-19-94Wesl (HP)Tel: (655) Name:GPO Box (HP) [phone] () [address] [place] [address] [place] [id number]: 03/15/2018 Secondary Eugene HuffDOB: OHIP Practices Insurance:[place] [id number] Repository /[facility] Number: [facility] [id number] [facility], Date: - [place] [address]Hbe: [id number] Name:[address] () [id number], [place] [id number]: 03/11/2018 EUGENE F [id number] S Primary EUGENE F HUFFDOB: Tiffanie WATER Insurance:ANTHEM [id number] Community [place] [place] [address]Hbv: Number: Repository [id number] () Date:9864-04-91LN [address] [place] [address] [place] [address]FV: 03/11/2018 Secondary NOT GIVENUNK [place] Insurance:SELF PAY [facility] Number: Effective Repository Date:2018-03-11 10/19/2017 Eugene F [id number] S Primary Eugene F HuffDOB: Tiffanie WATER Insurance:ANTHEM [id number] Community [place] [address]Wyh: Number: Repository [id number] () Date:5991-16-36RL [address] [place] [address] [place] [address]TK: 10/19/2017 Secondary NOT GIVENUNK Tiffanie Insurance:SELF PAY [facility] Number: Effective Repository Date:2017-10-01 06/20/2017 Eugene F [id number] S Primary Eugene F HuffDOB: Tiffanie WATER Insurance:DAVID [id number] Community [place] [address]Tqz: Number: Repository [id number] (HP) Date:3070-21-97[address], [place] [address]WT: 06/20/2017 Secondary NOT GIVENUNK Tiffanie Insurance:SELF PAY [facility] Number: Effective Repository Date:2017-06-12
--- OUTSIDE RECORDS SUMMARY | 2018-06-21 22:54 | XMS RPT_ITS | Continuity of Care Document ---
:1945 Author Organization [facility] Address [address] [place] [address] Phone Care Team Providers Name Role Phone Kathy Noguera DO Unavailable Carlos Enrique Bingham Unavailable Dr. Florin Brannon Unavailable Dr. Kirby العلي Unavailable LUIS ALBERTO aMcedo Unavailable Unavailable Unavailable Unavailable Problems Name Dates [...] Active Deliveries (Parity) Comments: 3. 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 next OV 09/16, every 6 Chuy Dent in [facility](Opthalmology) next OV 04/08 Status: Active Dysthymic (F34.1, 300.4) Status: Active Encounter for annual general medical [...] Start : 18-Nov-2014 End : 24-Feb-2015 Discontinued Comments:wt food in am TRADJENTA, 5MG (Oral Tablet) [...] Status: Inactive as of 17-Dec-2013 Vaccine for dxemsprzwo-pprpmmq-wiuygggfh with poliomyelitis (Z23, V06.3) Status: Inactive as of 04-Dec-2012 Procedures Procedure Dates Details Cataract Removal, Insert Prosthetic Lens Completed Comments: both eyes- 2011 Colon Cancer Completed Comments: 1 foot of colon removed-2002 colonscopy- 12/11- DR Mendoza Completed Diabetic Retinopathy Completed Comments: 2011 Gallbladder Surgery - Laparoscopic Completed Comments: 1994 Date Value Details 19-Oct-2017 SCREENING MAMM (CAD), BILAT Result: Comments: See Note; NOTES: [facility] Imaging Services [address] [place] [address] SCREENING MAMM (CAD), BILAT MR#: [id number] Acct: [id number] Name: EUGENE OWENS Rep #: [id number] : 1945 F 71 From: Matt Cortes MD PCP: Kathy Noguera DO Status: REG CLI Study: SCREENING MAMM (CAD), BILAT Date of Exam: 10/19/17 Exam# [id number] Ordering Dr: Kathy Noguera DO MAMMOGRAPHY - [...] [facility]. Approximately 10% of breast cancers are not detected by mammography. A normal mammogram should not delay biopsy of a clinically suspicious abnormality. [id number] Elect ronically Signed: Matt Cortes MD at 14:43 EDT Tel [phone], Service support , CC: Kathy Noguera DO Mold Builder: Signed 20-Jun-2017 Abdomen WITH IV Contrast Result: Comments: See Note; NOTES: [facility] Imaging Services [address] [place] [address] Abdomen WITH IV Contrast MR#: [id number] Acct: [id number] Name: EUGENE OWENS Rep #: [id number] : 1945 F 71 From: Leavr Meadows MD PCP: Kathy Noguera DO Status: REG CLI Study: Abdomen WITH IV Contrast Date of Exam: 06/20/17 Exam# [id number] Ordering Dr: Kathy Noguera DO STUDY: C [...] umbilicus is only partially included in the ebaau-wm-ipaz, but again appears to contain nondistended small [...] Service support , CC: Kathy Noguera DO Mold Builder: Signed 04-Oct-2016 SCREENING MAMM (CAD), BILAT Result: Comments: See Note; NOTES: [facility] Imaging Services [address] [place] [address] Verdana 4d SCREENING MAMM (CAD), BILAT MR#: [id number] Acct: [id number] Name: EUGENE OWENS Rep #: [id number] : 1945 F 70 From: Levar Cavanaugh MD PCP: Kathy Noguera DO Status: [facility] Study: SCREENING MAMM (CAD), BILAT Date of Exam: 10/04/16 Exam# [id number] Ordering Dr: Americo Noguera DO MAMMOGRAPHY - [...] delay biopsy of a clinically suspicious abnormality. [id number] Electronically Signed: Kevin Cavanaugh MD at 15:21 EDT , Service support , Fa x [phone] CC: Kathy Noguera DO Mold Builder: Signed 13-Jul-2016 DXA BONE DENS W/VERT FX ASMT Result: Comments: See Note; NOTES: [facility] Imaging Services [address] [place] [address] Verdana 4d DXA BONE DENS W/VERT FX ASMT MR#: [id number] Acct: [id number] Name: EUGENE OWENS Rep #: [id number] : 1945 F 70 From: Matt Cortes MD PCP: Kathy Noguera DO Status: REG CLI Study: DXA BONE DENS W/VERT FX ASMT Date of Exam: 07/13/16 Exam# [id number] Ordering Dr: Kathy Noguera DO STUDY: DUAL [...] Matt Cortes MD at 13:30 EDT Tel [phone], Service support , CC: Kathy Noguera DO Mold Builder: Signed 01-Oct-2015 Bilat Scrn Digital AND CAD Result: Comments: See Note; NOTES: [facility] Imaging Services [address] [place] [address] Verdana 4d Bilat Scrn Digital AND CAD MR#: [id number] Acct: [id number] Name: EUGENE OWENS Rep #: [id number] : 1945 F 69 From: Narciso Eisenberg MD PCP: Emmanuelle Quiñonez DO Status: REG CLI Study: Bilat Scrn Digital AND CAD Date of Exam: 10/01/15 Exam# [id number] Ordering Dr: Emmanuelle Roper DO MAMMOGRAPHY - [...] delay biopsy of a clinically suspicious abnormality. [id number] Electronically Signed: Narciso Eisenberg MD at 17:54 EDT Te l , Service support [phone], CC: Emmanuelle Quiñonez DO Mold Builder: Signed 19-Sep-2015 Carotid Duplex Ultrasound Result: Comments: See Note; NOTES: [facility] Cardiovascular Services [address] [place] [address] Carotid Duplex Ultrasound 09/17/15 0801 MR#: [id number] Acct: [id number] Name: EUGENE OWENS Rep #: [id number] : 1945 69 From: Adria Kim MD [...] in the left bulb. Procedure Carotid Duplex 33103. Exam performe d in department. Interpretation Summary Mild (<50%) stenosis right extracranial internal carotid. Mild (<50%) stenosis left extracranial internal carotid. Flow within the vertebral arteries is antegrade bilaterally. Ordering Physician: Emmanuelle Quiñonez Referring Physician: Emmanuelle Quiñonez Performed By: Lina Dumont, CARISSA, RVT 09/19/152156 Date Adria Kim MD CC: Emmanuelle Quiñonez DO Date Dictated: 09/17/15 0801 Date Transcribed: 09/19/152156 Mold Builder: Signed 17-Sep-2015 Abdomen/Pelvis WITH Contrast Result: Comments: See Note; NOTES: [facility] Imaging Services [address] [facility] [place] [address] Verdana 4d Abdomen/Pelvis WITH Contrast MR#: [id number] Acct: [id number] Name : EUGENE OWENS Rep #: [id number] : 1945 F 69 From: Matt Cortes MD PCP: Emmanuelle Quiñonez DO Status: REG CLI Study: Abdomen/Pelvis WITH Contrast Date of Exam: 09/17/15 Exam# [id number] Genevieve vasquez Dr: Emmanuelle Quiñonez DO STUDY: [...] Cortes MD at 8:43 EDT Tel [phone], Service support [phone], CC: Emmanuelle Quiñonez DO Mold Builder: Signed 20-Aug-2015 Brain W/WO Contrast Result: Comments: See Note; NOTES: [facility] Imaging Services [address] [place] [address] Verdana 4d Brain W/WO Contrast MR#: [id number] Acct: [id number] Name: SA LAURO OWENS F Rep #: [id number] : 1945 F 69 From: Narciso Eisenberg MD PCP: Emmanuelle Quiñonez DO Status: REG CLI Study: Brain W/WO Contrast Date of Exam: 08/20/15 Exam# [id number] Ordering Dr: Ashu Bhatti MD STUDY: MRI [...] at 15:23 EDT Tel , Service support [phone], CC: Emmanuelle Bhatti MD Mold Builder: Signed 20-Aug-2015 Brain W/WO Contrast Result: Comments: See Note; NOTES: [facility] Imaging Services [address] [place] [address] Verdana 4d Brain W/WO Contrast MR#: [id number] Acct: [id number] Name: SA RA Nohemi OWENS Rep #: [id number] : 1945 F 69 From: Narciso Eisenberg MD PCP: Emmanuelle Quiñonez DO Status: REG CLI Study: Brain W/WO Contrast Date of Exam: 08/20/15 Exam# [id number] Ordering Dr: Ashu Bhatti MD ADDENDUM by Narciso Eisenberg MD on 09/05/15 at 0120 ADDENDUM REASON FOR EXAM: Female, 69 y ears old. Cephalgia Electronically Signed: Narciso Eisenberg MD at 1:20 EDT Tel , Service support [phone], 09/05/15 0120 Date c c: Emmanuelle Quiñonez [...] at 15:23 EDT Tel , Service support [phone], CC: Emmanuelle Quiñonez DO; Ashu Bhatti MD Mold Builder: Signed 28-Sep-2014 Carotid Duplex Ultrasound Result: Comments: See Note; NOTES: [facility] Cardiovascular Services [address] [place] [address] Carotid Duplex Ultrasound 09/28/14 1657 MR#: [id number] Acct: [id number] Na me: EUGENE OWENS Rep #: [id number] : 1945 68 From: Adria Kim MD [...] left vertebral artery. Pr ocedure Carotid Duplex 36362. The exam was diagnostic. Exam performed in department. Interpretation Summary Mild (<50%) stenosis right extracranial internal carotid. Mild (<50%) sten osis left extracranial internal carotid. Flow within the vertebral arteries is antegrade bilaterally. _ Ordering Physician: Emmanuelle Quiñonez Performed By: COLETTE Valero 09/28/142025 Date Adria Kim MD CC: Emmanuelle Quiñonez DO Date Dictated: 09/28/141656 Date Transcribed: 09/28/142025 Mold Builder: Signed 28-Sep-2014 Koko Contehn Digital AND CAD Result: Comments: See Note; NOTES: [facility] Imaging Services [address] [place] [address] Breast Imaging Report MR#: [id number] Acct: [id number] Name: EUGENE OWENS Rep #: [id number] : 1945 F 68 From: Matt Cortes MD PCP: Emmanuelle Quiñonez DO Status: REG CLI Study: Bilat Scrn Digital AND CAD Date of Exam: 09/28/14 Exam# [id number] Ordering Dr: Emmanuelle Quiñonez DO M AMMOGRAPHY [...] Signed: Tay Ignacio at 12:26 EDT Tel [phone], Service support [phone], CC: Emmanuelle Quiñonez DO Mold Builder: Signed 29-Sep-2013 Brain W/WO Contrast Result: Comments: See Note; NOTES: [facility] Imaging Services [address] [place] [address] MRI Report MR#: [id number] Acct: [id number] Name: EUGENE OWENS Rep #: [id number] : 1945 F 67 From: Jess Rousseau MD PCP: Emmanuelle Quiñonez DO Status: REG CLI Study: Brain W/WO Contrast Date of Exam: 09/29/13 Exam# [id number] Ordering Dr: Josephine Stacy [employer]ERCIAL ROOFER-C STUDY: MRI BRAIN WITH AND WITHOUT CONTRAST [...] at 17:54 EDT Tel , Service support [phone], CC: Josephine Quiñonez DO Mold Builder: Signed 24-Sep-2013 Bilat Yadyn Digital & CAD Result: Comments: See Note; NOTES: [facility] Imaging Services [address] [place] [address] Breast Imaging Report MR#: [id number] Acct: [id number] Name: EUGENE OWENS Rep #: [id number] : 1945 F 67 From: Matt Cortes MD PCP: Emmanuelle Quiñonez DO Status: REG CLI Exam# [id number] Ordering Dr: Emmanuelle Quiñonez DO MAMMOGRAPHY - [...] Matt Cortes MD at 13:45 EDT Tel [phone], Service support [phone], CC: Emmanuelle Quiñonez DO Mold Builder: Signed 06-Sep-2013 Electroencephalogram Result: Comments: See Note; NOTES: [facility] Pulmonary Services/Neurology [address] [place] [address] Electroencephalogram (EEG) MR#: [id number] Acct: [id number] Name: SA RA Nohemi OWENS Rep #: [id number] : 1945 67 From: Ashu Bhatti MD [...] Dictated: 09/05/13 1408 Date Transcribed: 09/05/13 1558 Mold Builder: HARPER Signed 05-Sep-2013 Brain/Head W/WO Contrast Result: Comments: See Note; NOTES: [facility] Imaging Services [address] [place] [address] CAT Scan Report MR#: [id number] Acct: [id number] Name: EUGENE OWENS Rep #: [id number] : 1945 F 67 From: Alley Joe MD PCP: Emmanuelle Quiñonez DO Status: REG CLI Study: Brain/Head W/WO Contrast Date of Exam: 09/05/13 Exam# [id number] Ordering Dr: Emmanuelle Quiñonez DO STUDY: CT [...] Service support , CC: Emmanuelle Quiñonez DO Mold Builder: Signed 05-Aug-2013 Brain/Head without Contrast Result: Comments: See Note; NOTES: [facility] Imaging Services [address] [place] [address] CAT Scan Report MR#: [id number] Acct: [id number] Name: EUGENE OWENS Rep #: [id number] : 1945 F 67 From: Matt Cortes MD PCP: Emmanuelle Quiñonez DO Status: REG ER Study: Brain/Head without Contrast Date of Exam: 08/05/13 Exam# [id number] Ordering Dr: Frank Lane MD STUDY: CT [...] Matt Cortes MD at 15:35 EDT Tel [phone], Service support [phone], F ax [phone] CC: Emmanuelle Quiñonez DO; Frank Lane MD Mold Builder: Signed 05-Aug-2013 Chest PA and Lateral Result: Comments: See Note; NOTES: [facility] Imaging Services [address] [place] [address] Radiology Report MR#: [id number] Acct: [id number] Name: EUGENE OWENS Rep #: [id number] : 1945 F 67 From: Matt Cortes MD PCP: Emmanuelle Quiñonez DO Status: REG ER Study: Chest PA and Lateral Date of Exam: 08/05/13 Exam# [id number] Ordering Dr: Frank Lane MD STUDY: X-RAY [...] Matt Cortes MD at 15:38 EDT Tel [phone], Service support [phone], RAD/Chest PA and Lateral IMPRESSION: No acute abnormality is present. Electronically Signed: Matt Cortes MD at 15:38 EDT Tel [phone], Service support , CC: Emmanuelle Quiñonez DO; Frank Lane MD Mold Builder: Signed Family History Unknown Family Member Name [...] smoker Vital Signs Date Test Result Details 24-Gti-510958:09 Pulse 111 /min Comments: Pattern: Regular Respiration [...] kg/m2 Body Surface Area Calculated 1.89 m2 88-Ztg-781702:00 Temperature 98.1 f Pulse 94 /min Comments: [...] Description Value Details :04 HgA1C , Office (63283) HgA1C , Office 6.9 % (Normal) Range: 4.6 - 7.1 :04 Blood Glucose , Office (07713) Blood Glucose , Office 157 (Normal) 99-Oop-89594:37 Pathology Report Comments: PERFORMED BY: MARCIE Mcmillan [place] Tcum2911 [facility] [id number] BY: [facility] Dermatopathology [address] [place] [address] [id number] 670Clinical Information: [id number] See MATER Comments: Material submitted: .RIGHT CHEEKClinical history: .SKIN LESION RAISED IRREGULAR BLEEDING/SCABBED 1/2 Note (Normal) Diagnosis:IRRITATED AND INFLAMED SEBORRHEIC KERATOSIS WITH VERRUCOUSFEATURES./08/30/2017 Electronically signed: .Hiro Sims MD, DermatopathologistGross description: .RECEIVED IN FORMALIN LABELED EUGENE OWENS IS A DOE VARELA CRUSTY SKIN NODULE (8X 6 X 5 MM). INKED AT THE MARGIN OF RESECTION, SECTIONED AND ENTIRELYSUBMITTED IN ONE CASSETTE.DKS/SMIPathologist provided ICD-10:L82.0CPT .951409 4-Yga-164097:04 HgA1C , Office (21895) HgA1C , Office 6.5 % (Normal) Range: 4.6 - 7.1 2-Urp-645946:04 Blood Glucose , Office (07813) Blood Glucose , Office 119 (Normal) 03-Jul-20178:40 Microscopic Examination Comments: PATIENT WAS FASTINGPERFORMED BY: [employer] Bfmuni8088 [facility] [id number] Bacteria Few (Normal) Mucus Threads Present (Normal) Crystal Type Amorphous Sediment (Normal) Crystals Present (Abnormal) Epithelial Cells (non renal) 0-10 {/hpf} (Normal) Range: 0 - 10 RBC 0-2 {/hpf} (Normal) Range: 0 - 2 WBC 0-5 {/hpf} (Normal) Range: 0 - 5 96-Syv-656787:05 CREATININE FINGERSTICK Comments: [facility] [place] [address] EGFR WB > 60.0000 mL/min (Normal) CREATININE WB 0.6 mg/dL (Normal) Range: 0.55-1.02 5-Kyu-051729:08 Urinalysis, Office (18295) UA - LEUKOCYTE ESTERASE Small (Normal) UA - NITRITE Negative (Normal) URINE UROBILINGN GLORY TIMED Normal mg/dL (Normal) UA - PROTEIN 100 mg/dL (Normal) UA - PH 6 (Abnormal) UA - BLOOD Non Hemolyzed Trace (Normal) UA - SPECIFIC GRAVITY 1.020 (Normal) UA - KETONES 15 mg/dL (Abnormal) UA - BILIRUBIN Negative (Normal) UA - GLUCOSE Negative (Normal) 9-Crb-837960:26 URINE GISELLE CULTURE-IDENTIFICATN Comments: PATIENT NOT FASTINGPERFORMED BY: [facility] [id number] Information: SRC:UC (08840) Result 1 MUG (Normal) Comments: Mixed urogenital flora10,000-25,000 colony forming units per mL Urine Final report (Normal) Culture,Comprehensive 6-Fjw-193455:51 HgA1C , Office (67106) HgA1C , Office 6.7 % (Normal) Range: 4.6 - 7.1 6-Shh-545345:51 Blood Glucose , Office (50453) Blood Glucose , Office 225 (Normal) :40 TSH (65773) Comments: PATIENT WAS FASTINGPERFORMED BY: [facility] [facility] [id number] TSH 3.800 {uIU/mL} (Normal) Range: 0.450-4.500 :40 URINALYSIS, W/ MICRO (31839) Comments: PATIENT WAS FASTINGPERFORMED BY: [facility] [id number] Microscopic Examination See below: (Normal) Comments: Microscopic was indicated and was performed. Nitrite, Urine Negative (Normal) Urobilinogen,Semi-Qn 0.2 mg/dL (Normal) Range: 0.2-1.0 Bilirubin Negative (Normal) Occult Blood Negative (Normal) Ketones Negative (Normal) Glucose Negative (Normal) Protein 1+ (Abnormal) WBC Esterase 1+ (Abnormal) Appearance Clear (Normal) Urine-Color Yellow (Normal) pH 7.5 (Normal) Range: 5.0-7.5 Specific [place] 1.018 (Normal) Range: 1.005-1.030 :40 MICROALBUMIN: CREATININE RATIO Comments: PATIENT WAS FASTINGPERFORMED BY: [facility] [id number] (16707) AND (35502) Alb/Creat Ratio 557.7 {mg/g_creat} (Abnormal) Range: 0.0-30.0 Albumin, Urine 187.4 ug/mL (Normal) Creatinine, Urine 33.6 mg/dL (Normal) :40 METABOLIC PANEL, COMPREHENSIVE Comments: PATIENT WAS FASTINGPERFORMED BY: [facility]6370 [facility] [id number] (13713) ALT (SGPT) 6 [iU]/L (Normal) Range: 0-32 [...] mg/dL (Normal) Range: 65-99 :40 LIPID PANEL (45895) Comments: PATIENT WAS FASTINGPERFORMED BY: [facility]lin6370 [facility] [id number] LDL/HDL Ratio 0.9 {ratio} (Normal) Range: 0.0-3.2 [...] Range: 100-199 :40 CBC W/AUTO DIFF WBC (17837) Comments: PATIENT WAS FASTINGPERFORMED BY: [facility]lin6370 [facility] [id number] Immature Grans (Abs) 0.0 {x10E3/uL} (Normal) Range: [...] 10.8 {x10E3/uL} (Normal) Range: 3.4-10.8 03-Jul-20178:40 CALCIFIDIOL (73009) VIT D 25 Comments: PATIENT WAS FASTINGPERFORMED BY: [facility]Bfawqk3929 [facility] [id number]; ov 07/09 Vitamin D, 25-Hydroxy 13.6 ng/mL (Abnormal) Range: 30.0-100.0 Comments: Vitamin D deficiency has been defined by the [place] of[place]icine and an Endocrine Society practice guideline as alevel of serum 25-OH vitamin D less than 20 ng/mL (1,2).The Endocrine Society went on to further define vitamin Dinsufficiency as a level between 21 and 29 ng/mL (2).1. IOM ([place] of Medicine). 2010. Dietary reference intakes for calcium and D. [place]: The National Academies Press.2. Alma Delia MF, Ru FOSS, Valery HARPER, et al. Evaluation, treatment, and prevention of vitamin D deficiency: an Endocrine Society clinical practice guideline. JCEM. 2010; 96(7):1911-30. :06 HgA1C , Office (50748) HgA1C , Office 6.4 % (Normal) Range: 4.6 - 7.1 :06 Blood Glucose , Office (25763) Blood Glucose , Office 235 (Normal) :39 Microscopic Examination Comments: PATIENT NOT FASTINGPERFORMED BY: [facility] [id number] Bacteria Moderate (Abnormal) Mucus Threads Present (Normal) Crystal Type Amorphous Sediment (Normal) Comments: Calcium Oxalate Crystals Present (Abnormal) Cast Type Hyaline casts (Normal) Casts Present {/lpf} (Abnormal) Epithelial Cells (non renal) >10 {/hpf} (Abnormal) Range: 0 - 10 RBC 3-10 {/hpf} (Abnormal) Range: 0 - 2 WBC >30 {/hpf} (Abnormal) Range: 0 - 5 :37 LIPID PANEL (79650) Comments: PATIENT WAS FASTINGPERFORMED BY: [employer] [id number] LDL/HDL Ratio 1.1 {ratio_units} (Normal) Range: 0.0-3.2 Comments: LDL/HDL Ratio Men Women 1/2 Avg.Risk 1.0 1.5 Av g.Risk 3.6 3.2 2X Avg.Risk 6.2 5.0 3X Avg.Risk 8.0 6.1 LDL Cholesterol Calc 51 mg/dL (Normal) Range: 0-99 VLDL Cholesterol Pan 21 mg/dL (Normal) Range: 5-40 HDL Cholesterol 46 mg/dL (Normal) Triglycerides 104 mg/dL (Normal) Range: 0-149 Cholesterol, Total 118 mg/dL (Normal) Range: 100-199 38-Cxl-539745:37 HEPATIC FUNCTION PANEL Comments: PATIENT WAS FASTINGPERFORMED BY: [employer] Kydaej3706 [facility] [id number]; OV 12/29 (78635) ALT (SGPT) 7 [iU]/L (Normal) Range: 0-32 AST (SGOT) 12 [iU]/L (Normal) Range: 0-40 Alkaline Phosphatase, S 92 [iU]/L (Normal) Range: 39-117 Bilirubin, Direct 0.17 mg/dL (Normal) Range: 0.00-0.40 Bilirubin, Total 0.6 mg/dL (Normal) Range: 0.0-1.2 Albumin, Serum 4.1 g/dL (Normal) Range: 3.5-4.8 Protein, Total, Serum 7.4 g/dL (Normal) Range: 6.0-8.5 :35 HgA1C , Office (51060) HgA1C , Office 6.2 % (Normal) Range: 4.6 - 7.1 :35 Blood Glucose , Office (72743) Blood Glucose , Office 124 (Normal) :31 TSH (85478) Comments: PATIENT WAS FASTINGPERFORMED BY: [employer] Caftug9456 [facility] [id number] TSH 2.470 {uIU/mL} (Normal) Range: 0.450-4.500 :39 URINALYSIS, W/ MICRO (77185) Comments: PATIENT NOT FASTINGPERFORMED BY: [employer] Krqeiv7487 [facility] [id number] Microscopic Examination See below: (Normal) Comments: Microscopic was indicated and was performed. Nitrite, Urine Negative (Normal) Urobilinogen,Semi-Qn 1.0 mg/dL (Normal) Range: 0.2-1.0 Bilirubin Negative (Normal) Occult Blood Negative (Normal) Ketones Trace (Abnormal) Glucose Negative (Normal) Protein 3+ (Abnormal) WBC Esterase 2+ (Abnormal) Appearance Cloudy (Abnormal) Urine-Color Yellow (Normal) pH 6.0 (Normal) Range: 5.0-7.5 Specific [place] >=1.030 (Abnormal) Range: 1.005-1.030 56-Dhm-504898:39 MICROALBUMIN: CREATININE RATIO Comments: PATIENT NOT FASTINGPERFORMED BY: [employer]6370 [facility] [id number] (98722) AND (43584) Microalb/Creat Ratio 162.3 {mg/g_creat} (Abnormal) Range: 0.0-30.0 Microalbumin, Urine 573.6 ug/mL (Normal) Comments: Results confirmed ondilution. Creatinine, Urine 353.4 mg/dL (Normal) 72-Big-894973:31 METABOLIC PANEL, COMPREHENSIVE Comments: PATIENT WAS FASTINGPERFORMED BY: [employer]6370 [facility] [id number] (78972) ALT (SGPT) 8 [iU]/L (Normal) Range: 0-32 [...] Range: 65-99 :31 CBC W/AUTO DIFF WBC (38945) Comments: PATIENT WAS FASTINGPERFORMED BY: [employer] Rrsxpq0608 [facility] [id number] Immature Grans (Abs) 0.0 {x10E3/uL} (Normal) Range: [...] {x10E3/uL} (Normal) Range: 3.4-10.8 :31 LIPID PANEL (63777) Comments: PATIENT WAS FASTINGPERFORMED BY: [facility] SolutionsUniversity HospitalXaiofu3694 [facility] [id number] LDL/HDL Ratio 2.6 {ratio_units} (Normal) Range: 0.0-3.2 Comments: LDL/HDL Ratio Men Women 1/2 Avg.Risk 1.0 1.5 Av g.Risk 3.6 3.2 2X Avg.Risk 6.2 5.0 3X Avg.Risk 8.0 6.1 LDL Cholesterol Calc 108 mg/dL (Abnormal) Range: 0-99 VLDL Cholesterol Pan 28 mg/dL (Normal) Range: 5-40 HDL Cholesterol 42 mg/dL (Normal) Triglycerides 142 mg/dL (Normal) Range: 0-149 Cholesterol, Total 178 mg/dL (Normal) Range: 100-199 :31 PECNB-ZTKGMVKHACR-MBVNQ (23581) Comments: PATIENT WAS FASTINGPERFORMED BY: [employer]6370 [facility] [id number] AFP, Serum, Tumor Marker <0.7 ng/mL (Normal) Range: 0.0-8.3 Comments: Nadine ECLIA methodology :31 CALCIFIDIOL (81413) VIT D 25 Comments: PATIENT WAS FASTINGPERFORMED BY: [employer] Npfsms0774 [facility] [place] [id number] Vitamin D, 25-Hydroxy 20.5 ng/mL (Abnormal) Range: 30.0-100.0 Comments: Vitamin D deficiency has been defined by the [place] ofMedicine and an Endocrine Society practice guideline as alevel of serum 25-OH vitamin D less than 20 ng/mL (1,2).The Endocrine Society went on to further define vitamin Dinsufficiency as a level between 21 and 29 ng/mL (2).1. IOM ([place] of Medicine). 2010. Dietary reference intakes for calcium and D. [place]: The National Academies Press.2. Alma Delia MF, Ru [place], Valery HARPER, et al. Evaluation, treatment, and prevention of vitamin D deficiency: an Endocrine Society clinical practice guideline. JCEM. 2010; 96(7):1911-30. :34 HgA1C , Office (31469) HgA1C , Office 6.2 % (Normal) Range: 4.6 - 7.1 :34 Blood Glucose , Office (08818) Blood Glucose , Office 147 (Normal) 68-Hyw-169048:02 HgA1C , Office (52208) HgA1C , Office 6.4 % (Normal) Range: 4.6 - 7.1 :07 TIDPM-ADMUSRQZAXN-YLDIU (89112) Comments: PATIENT WAS FASTINGPERFORMED BY: RPost Jdigjt0983 Montes RoadNutanixblin [place] [id number] AFP, Serum, Tumor Marker 1.0 ng/mL (Normal) Range: 0.0-8.3 Comments: Nadine ECLIA methodology :07 MICROALBUMIN: CREATININE RATIO Comments: PATIENT WAS FASTINGPERFORMED BY: [employer] MomentCamb[place] [id number] (24115) AND (90570) Microalb/Creat Ratio 454.4 {mg/g_creat} (Abnormal) Range: 0.0-30.0 Microalbumin, Urine 500.8 ug/mL (Normal) Comments: Results confirmed ondilution. Creatinine, Urine 110.2 mg/dL (Normal) :07 VITAMIN B12 AND FOLATES Comments: PATIENT WAS FASTINGPERFORMED BY: [employer]6370 [address] MomentC[place]lin [place] [id number] (27471) Folate (Folic Acid), Serum 12.7 ng/mL (Normal) Comments: A serum folate concentration of less than 3.1 ng/mL isconsidered to represent clinical deficiency. Vitamin B12 407 pg/mL (Normal) Range: 211-946 :07 CALCIFEDIOL (23692) Comments: PATIENT WAS FASTINGPERFORMED BY: RPost Apjeyz7595 Montes RoadDublin [place] [id number] Vitamin D, 25-Hydroxy 15.3 ng/mL (Abnormal) Range: 30.0-100.0 Comments: Vitamin D deficiency has been defined by the [place] ofMedicine and an Endocrine Society practice guideline as alevel of serum 25-OH vitamin D less than 20 ng/mL (1,2).The Endocrine Society went on to further define vitamin Dinsufficiency as a level between 21 and 29 ng/mL (2).1. IOM ([place] of Medicine). 2010. Dietary reference intakes for calcium and D. [place]: The National Academies Press.2. Alma Delia MF, Ru [place], Valery HARPER, et al. Evaluation, treatment, and prevention of vitamin D deficiency: an Endocrine Society clinical practice guideline. JCEM. 2010; 96(7):1911-30. :07 TSH (THYROID STIMULATING Comments: PATIENT WAS FASTINGPERFORMED BY: [employer] [facility] [id number] HORMONE) (94022) TSH 2.280 {uIU/mL} (Normal) Range: 0.450-4.500 :07 LIPID PANEL (54484) Comments: PATIENT WAS FASTINGPERFORMED BY: Gema6370 [facility] [id number] LDL/HDL Ratio 2.4 {ratio_units} (Normal) Range: 0.0-3.2 [...] PANEL, COMPREHENSIVE Comments: PATIENT WAS FASTINGPERFORMED BY: [employer] Disdpb6851 [facility] [id number] (33543) ALT (SGPT) 7 [iU]/L (Normal) Range: 0-32 [...] Glucose, Serum 102 mg/dL (Abnormal) Range: 65-99 5-Lwg-046783:07 CBC, PLATELETS & AUT DIFF Comments: PATIENT WAS FASTINGPERFORMED BY: [facility] Lksqek3720 [facility] [id number] (27513) Immature Grans (Abs) 0.0 {x10E3/uL} (Normal) Range: [...] (Normal) Range: 3.4-10.8 :24 HgA1C , Office (71725) HgA1C , Office 6.0 % (Normal) Range: 4.6 - 7.1 :24 Blood Glucose , Office (37280) Blood Glucose , Office 125 (Normal) :38 HEPATITIS PANEL (89681) Comments: PATIENT WAS FASTINGPERFORMED BY: [employer] [facility] [facility] [id number] Hep C Virus Ab 0.2 {s/co_ratio} (Normal) Range: 0.0-0.9 Comments: Negative: < 0.8 Indeterminate: 0.8 - 0.9 Positive: > 0.9 . The CDC recommends that a positive HCV antibody result be followed up with a HCV Nucleic Acid Amplification test (721027). Hep B Core Ab, IgM Negative (Normal) HBsAg Screen Negative (Normal) Hep A Ab, IgM Negative (Normal) :38 UEARQ-HXNXHEFOEGW-PEFIT (29780) Comments: PATIENT WAS FASTINGPERFORMED BY: CloudabilityUniversity HospitalHoisxf5263 [facility] [id number] AFP, Serum, Tumor Marker 0.9 ng/mL (Normal) Range: 0.0-8.3 Comments: Nadine ECLIA methodology 25-Gjo-082405:38 HEPATIC FUNCTION PANEL Comments: PATIENT WAS FASTINGPERFORMED BY: [facility]6370 [facility] [id number] Information: [id number] DL (54866) ALT (SGPT) 7 [iU]/L (Normal) Range: 0-32 AST (SGOT) 14 [iU]/L (Normal) Range: 0-40 Alkaline Phosphatase, S 113 [iU]/L (Normal) Range: 39-117 Bilirubin, Direct 0.10 mg/dL (Normal) Range: 0.00-0.40 Bilirubin, Total 0.4 mg/dL (Normal) Range: 0.0-1.2 Albumin, Serum 4.1 g/dL (Normal) Range: 3.5-4.8 Protein, Total, Serum 7.5 g/dL (Normal) Range: 6.0-8.5 6-Wxl-546376:00 CBC W/AUTO DIFF WBC Comments: PATIENT WAS FASTINGPERFORMED BY: [facility]6370 [facility] [id number] Information: [id number] (15968) Immature Grans (Abs) 0.0 {x10E3/uL} (Normal) Range: [...] 3.77-5.28 WBC 9.5 {x10E3/uL} (Normal) Range: 3.4-10.8 0-Pds-281595:00 MICROALBUMIN: CREATININE RATIO Comments: PATIENT WAS FASTINGPERFORMED BY: [facility]CoUniversity HospitalYnwmfq7065 [facility] [id number] (31803) AND (09068) Microalb/Creat Ratio 206.7 {mg/g_creat} (Abnormal) Range: 0.0-30.0 Comments: ADDENDA: apt today Microalbumin, Urine 46.1 ug/mL (Normal) Creatinine, Urine 22.3 mg/dL (Normal) 5-Sgw-426060:00 METABOLIC PANEL, COMPREHENSIVE Comments: PATIENT WAS FASTINGPERFORMED BY: [facility] Uxhnva8399 [facility] [id number] (47186) ALT (SGPT) 6 [iU]/L (Normal) Range: 0-32 [...] Glucose, Serum 98 mg/dL (Normal) Range: 65-99 1-Omg-154259:00 LIPID PANEL (41998) Comments: PATIENT WAS FASTINGPERFORMED BY: [facility]Co[facility] HospitalKljike7672 [facility] [id number] LDL/HDL Ratio 2.6 {ratio_units} (Normal) Range: 0.0-3.2 [...] Cholesterol, Total 192 mg/dL (Normal) Range: 100-199 31-Uwq-017083:01 Serum Creatinine AND GFR Comments: [facility] [address] [place], [place], [address] EST GFR - AA 76 mL/min (Normal) Comments: GFR Calc EST GFR 63 mL/min (Normal) Comments: Non- GFR Calc CREAT,SERUM 0.93 mg/dL (Normal) Range: 0.55-1.20 Comments: The validity of the calculated GFR AND GFRAA in patients over70 years has not been determined. Clinical correlation isessential. 73-Edx-191154:22 HgA1C , Office (69477) HgA1C , Office 6.9 % (Normal) Range: 4.6 - 7.1 85-Ggw-611278:47 Blood Glucose , Office (12867) Blood Glucose , Office 284 (Normal) :47 HgA1C , Office (51129) HgA1C , Office 7.1 % (Normal) Range: 4.6 - 7.1 17-Fwl-145713:18 Microscopic Examination Comments: PATIENT NOT FASTINGPERFORMED BY: [place] 4528370 [facility] [id number] Bacteria Moderate (Abnormal) Mucus Threads Present (Normal) Crystal Type Amorphous Sediment (Normal) Crystals Present (Abnormal) Epithelial Cells (non renal) >10 {/hpf} (Abnormal) Range: 0 - 10 RBC 0-2 {/hpf} (Normal) Range: 0 - 2 WBC 6-10 {/hpf} (Abnormal) Range: 0 - 5 :18 URINALYSIS, W/ MICRO (30818) Comments: PATIENT NOT FASTINGPERFORMED BY: [place] 4528370 [facility] [id number] Microscopic Examination See below: (Normal) Comments: Microscopic was indicated and was performed. Nitrite, Urine Negative (Normal) Urobilinogen,Semi-Qn 0.2 mg/dL (Normal) Range: 0.0-1.9 Bilirubin Negative (Normal) Occult Blood Negative (Normal) Ketones Negative (Normal) Glucose Negative (Normal) Protein 2+ (Abnormal) WBC Esterase 2+ (Abnormal) Appearance Cloudy (Abnormal) Urine-Color Yellow (Normal) pH 7.0 (Normal) Range: 5.0-7.5 Specific [place] 1.014 (Normal) Range: 1.005-1.030 :18 PTT (Activated Partial Comments: PATIENT NOT FASTINGPERFORMED BY: [facility]6370 [facility] [id number] Thromboplastin Time) (65717) aPTT 28 {sec} (Normal) Range: 24-33 Comments: This test has not been validated for monitoring unfractionated heparintherapy. aPTT-based therapeutic ranges for unfractionated heparintherapy have not been established. For general guidelines onHeparin monitoring, refer to the [facility] Directory of Services. 31-Xzm-209364:18 PT (Prothrobim Time) (08777) Comments: PATIENT NOT FASTINGPERFORMED BY: [employer] Kokknu3117 [facility] [id number] Prothrombin Time 10.3 {sec} (Normal) Range: 9.1-12.0 INR 1.0 (Normal) Range: 0.8-1.2 Comments: Reference interval is for non-anticoagulated patients. . Suggested INR therapeutic range for Vitamin K anta gonist therapy: Standard Dose (moderate intensity therapeutic range): 2.0 - 3.0 Higher intensity therapeutic range 2.5 - 3.5 58-Htx-926576:18 MICROALBUMIN: CREATININE RATIO Comments: PATIENT NOT FASTINGPERFORMED BY: [employer] Ppeane5684 [facility] [id number] (48367) AND (54268) Microalb/Creat Ratio 434.0 {mg/g_creat} (Abnormal) Range: 0.0-30.0 Microalbumin, Urine 427.5 ug/mL (Abnormal) Range: 0.0-17.0 Comments: Results confirmed ondilution. Creatinine, Urine 98.5 mg/dL (Normal) Range: 15.0-278.0 21-Sip-051104:18 CBC with auto diff Comments: PATIENT NOT FASTINGPERFORMED BY: [facility]at[facility] SolutionsUniversity HospitalHiuiqm8186 [facility] [id number] Information: [id number], [id number] (28007) Immature Grans (Abs) 0.0 {x10E3/uL} (Normal) Range: [...] 3.77-5.28 WBC 8.4 {x10E3/uL} (Normal) Range: 3.4-10.8 35-Nox-742444:18 METABOLIC PANEL, COMPREHENSIVE Comments: PATIENT NOT FASTINGPERFORMED BY: [facility] Bnewva4231 [facility] [id number] (53810) ALT (SGPT) 9 [iU]/L (Normal) Range: 0-32 [...] Glucose, Serum 100 mg/dL (Abnormal) Range: 65-99 88-Avd-077937:18 LIPID PANEL (11754) Comments: PATIENT NOT FASTINGPERFORMED BY: CloudabilityUniversity HospitalRwptye7128 [facility] [id number] LDL/HDL Ratio 2.6 {ratio_units} (Normal) Range: 0.0-3.2 [...] Cholesterol, Total 199 mg/dL (Normal) Range: 100-199 13-Cjp-012738:39 HgA1C , Office (95192) HgA1C , Office 7.6 % (Abnormal) Range: 4.6 - 7.1 12-Qve-020725:46 Metabolic Panel, Basic Comments: PATIENT NOT FASTINGPERFORMED BY: CloudabilityUniversity HospitalKlpbiw7595 [facility] [id number] Information: [id number] (05198) Calcium, Serum 9.8 mg/dL (Normal) Range: 8.6-10.2 [...] Glucose, Serum 168 mg/dL (Abnormal) Range: 65-99 40-Zbw-571147:03 HgA1C , Office (37069) HgA1C , Office 8.9 % (Abnormal) Range: 4.6 - 7.1 71-Ghf-310885:08 TSH (97449) Comments: PATIENT NOT FASTINGPERFORMED BY: LabSeeControlUniversity HospitalFjfgax6775 [facility] [id number] TSH 2.650 {uIU/mL} (Normal) Range: 0.450-4.500 18-Ueg-437012:08 METABOLIC PANEL, Comments: PATIENT NOT FASTINGPERFORMED BY: LabCoUniversity HospitalEdmtmn7296 [facility] [id number] Information: [id number] [facility] (62594) ALT (SGPT) 11 [iU]/L (Normal) Range: 0-32 [...] <0.05 NEGATIVE0.06 - 0.59 AT RISK OF MT> OR = 0.60 SUGGEST MT :25 HgA1C , Office (90751) HgA1C , Office 7.7 % (Abnormal) Range: 4.6 - 7.1 :02 HgA1C , Office (63583) HgA1C , Office 7.8 % (Abnormal) Range: [...] Cortes M.D.December 04, 2012 at 3:28:15 PM [id number] Signed GP/GP If you are the referring physician and would like to consult with theradiologist who provided this int erpretation, please contact Brian Myles at [phone]. If this radiologist is unavailable, youwill be directed to another radiologist to assist. If you are a patient with a question regard ing this report, pleasecontactyour referring physician directly. Professional Interpretation Provided By: [employer], Phone , These documents contain legally protected [...] 12/04/12 1532 Sign by: Matt Cortes MD 97-Yor-581567:47 BILAT SCRN DIGITAL & CAD Radiology Report [...] Grimm M.D.September 19, 2012 at 5:00:16 PM [id number] Signed RU/RU If you are the referring physician and would like to consult w [facility] theradiologist who provided this interpretation, please contact Brian Fairbanks at [phone]. If this radiologist is unavailable, angebe directed to another radiologist to assist. If you are a patient with a question regarding this report, pleasecontactyour referring physician directly. Professional Interpretation Provided By: [employer], Phone , These doc uments contain legally [...] Grimm on 09/19/122026 Sign by: Sharath Grimm 1-Lkw-609874:16 HgA1C , Office (46371) HgA1C , Office 7.5 % (Abnormal) Range: 4.6 - 7.1 0-Ssj-354312:13 ABDOMEN/PELVIS WITH CONTRAST Radiology Report See Note [...] Cortes M.D.May 08, 2012 at 4:23:24 PM [id number] Signed GP/GP If you are the referring physic vale and would like to consult with theradiologist who provided this interpretation, please contact Brian Myles at [phone]. If this radiologist is unavailable, [facility]will [facility] to [facility] to assist. If you are a patient with a question regarding this report, pleasecontactyour referring physician directly. Professional Interpretation Provided By: [employer], Phone , These documents contain legally protected [...] on 05/08/12 1627 by ITS IMPORTSign by Matt Cortes MD on 05/08 1628 Sign by: Matt Cortes MD 6-Uap-320472:19 C-REACTIVE PROTEIN (47052) Comments: stat; PATIENT NOT FASTINGPERFORMED BY: [facility] Xqovfx6809 [address] [facility] [id number] C-Reactive Protein, Quant 14.5 mg/L (Abnormal) Range: 0.0-4.9 3-Efr-288211:19 SED RATE ERYTHROCYTE (72778) Comments: stat; PATIENT NOT FASTINGPERFORMED BY: [facility] Ypsqpf0613 [facility] [id number] Sedimentation Rate-Westergren 22 mm/h (Normal) Range: 0-40 0-Gsq-544234:19 CBC WITH MANUAL DIFF Comments: stat; PATIENT NOT FASTINGPERFORMED BY: [facility] Uqumho0236 [facility] [id number] Information: ADD [id number] AND DRAW FEE 99 3430 (35892) Immature Grans (Abs) 0.0 {x10E3/uL} (Normal) Range: [...] 3.77-5.28 WBC 14.9 {x10E3/uL} (Abnormal) Range: 4.0-10.5 1-Vrv-856644:19 METABOLIC PANEL, COMPREHENSIVE Comments: PATIENT NOT FASTINGPERFORMED BY: [facility]CoUniversity HospitalPvdbbo6545 [facility] [id number] (45018) ALT (SGPT) 9 [iU]/L (Normal) Range: 0-32 [...] Glucose, Serum 134 mg/dL (Abnormal) Range: 65-99 6-Ejr-066851:40 URINE GISELLE CULTURE-GLORY COL Comments: PATIENT NOT FASTINGPERFORMED BY: [facility] [id number] COUNT (24373) Result 1 NG36 (Normal) Comments: No growth in 36 - 48 hours. Urine Culture,Comprehensive Final report (Normal) 2-Bim-634135:04 Urinalysis, Office (82311) UA - BILIRUBIN Negative (Normal) UA - BLOOD Hemolyzed Trace (Normal) UA - GLUCOSE Negative (Normal) UA - KETONES Negative mg/dL (Normal) UA - LEUKOCYTE ESTERASE Large (Normal) UA - NITRITE Negative (Normal) UA - PH 6.0 (Normal) UA - PROTEIN 100 mg/dL (Normal) UA - SPECIFIC GRAVITY 1.020 (Normal) URINE UROBILINGN GLORY TIMED Normal mg/dL (Normal) 9-Vsd-155726:04 Basic Metabolic Panel (8) Comments: PERFORMED BY: [facility] [id number] Calcium, Serum 9.6 mg/dL (Normal) Range: 8.6-10.2 [...] Hunter M.D.February 01, 2012 at 7:35:17 PM [id number] Signed TT/TT If you are the referring physician and would like to consult with eradiologist who provided this interpretation, please contact Pam Allred M.D. at [phone]. If this radiologist is unavailable, youwillbe directed to another radiologist to assist. If you are a patient with a question regarding this report, pleasecontactyour referring physician directly. Professional Interpretation Provided By: [employer], Phone , These documen ts contain legally [...] 17-Oct-201 Osmolality 276 {mOsmol/kg} Comments: PERFORMED BY: [employer] Ddnicr7061 [facility] [id number] BY: [address] [id number] 213:21 (Abnormal) Range: 280-301 17-Oct-201 Osmolality, Urine 704 {mOsmol/kg} Comments: PERFORMED BY: [employer] [facility] [id number] BY: [address] [id number] 213:21 (Normal) Comments: 24 hr : 300 - 900 Random: 50 - 1400 After 12hr fluid restriction: >850 17-Oct-201 Sodium, Serum 131 mmol/L Comments: PERFORMED BY: [employer] Rfdrvn5690 [facility] [id number] BY: [address] [id number] 213:21 (Abnormal) Range: 134-144 17-Oct-201 Sodium, Urine 37 mmol/L Comments: PERFORMED BY: [employer] Bdnoad0189 [facility] [id number] BY: [address] [id number] 213:21 (Normal) 17-Oct-201 TSH 1.850 {uIU/mL} Comments: PERFORMED BY: [employer] Communitieslin[address] [place] [address] [id number] BY: [address] [id number] 213:21 (Normal) Range: 0.450-4.500 26-Yjo-969085:20 HgA1C , Office (74465) HgA1C , Office 6.8 % (Normal) Range: 4.6 - 7.1 7-Pua-277885:10 L/S SPINE,MIN 4 VIEWS Radiology Report See [...] Signed:Tay JacquesJanuary 08, 2012 at 8:18:09 PM [id number] Signed JL/JL If you are the referring physician and would like to consult with theradiologist who provided this interpretation, please cont act Lyn Gilmore M.D. at [phone]. If this radiologist is unavailable, you will bedirected to another radiologist to assist. If you are a patient with a question regarding this report, pleasecontactyou r referring physician directly. Professional Interpretation Provided By: [employer], Phone , These documents contain legally protected [...] on 01/08/122022 Sign by: LYN GILMORE MD 4-Azg-669324:09 HIP, MIN 2 VIEWS Radiology Report See [...] Gilmore M.D.January 08, 2012 at 8:15:08 PM [id number] Signed JL/VENU If you are the referring physician and would like to consult with theradiologist who provided this interp retation, please contact Lyn Gilmore M.D. at [phone]. If this radiologist is unavailable, you will bedirected to another radiologist to assist. If you are a patient with a question regarding this rep ort, pleasecontactyour referring physician directly. Professional Interpretation Provided By: [employer], Phone , These documents contain legally protected [...] on 01/08/122019 Sign by: LYN GILMORE MD 1-Ldt-621491:09 HIP, MIN 2 VIEWS Radiology Report See [...] Gilmore M.D.January 08, 2012 at 8:16:05 PM [id number] Signed JL/VENU If you are the referring physician and would like to consult with adrian iologist who provided this interpretation, please contact Lyn Gilmore M.D. at [phone]. If this radiologist is unavailable, you will bedirected to another radiologist to assist. If you are a patient w ith a question regarding this report, pleasecontactyour referring physician directly. Professional Interpretation Provided By: [employer], Phone , These documents contain legally protected [...] 01/08/122019 Sign by: __ LYN GILMORE MD 57-Dad-031462:56 Urinalysis, Office (62181) UA - BILIRUBIN Negative (Normal) UA - BLOOD Hemolyzed Trace (Normal) UA - GLUCOSE Negative (Normal) UA - KETONES Negative mg/dL (Normal) UA - LEUKOCYTE ESTERASE Small (Normal) UA - NITRITE Negative (Normal) UA - PH 6.0 (Normal) UA - PROTEIN 100 mg/dL (Normal) UA - SPECIFIC GRAVITY 1.025 (Normal) URINE UROBILINGN GLORY TIMED Normal mg/dL (Normal) 38-Rqi-143248:43 URINE GISELLE CULTURE (GLORY Comments: PATIENT NOT FASTINGPERFORMED BY: TATIANA [facility] Pdqrky3015 [facility] [id number] Information: SRC:UR [id number] COL COUNT) (77044) Result 1 MUG (Normal) Comments: Mixed urogenital flora1,000 Colonies/mL Urine Culture,Comprehensive Final report (Normal) 5-Zvf-333330:10 HgA1C , Office (37500) HgA1C , Office 7.3 % (Abnormal) Range: 4.6 - 7.1 4-Scs-138356:10 Blood Glucose , Office (66679) Blood Glucose , Office 164 (Normal) Plan [...] Indication: Mixed hyperlipidemia Colon cancer : Reviewed 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 Indication: Colon cancer Adrenal adenoma, left [...] up in 2 weeks Indication: Hypertension, benign Dysthymic : Eprescribed prescriptions (G8553) Indication: Dysthymic Diabetes mellitus type II, controlled : Follow up in 3 months Indication: Diabetes mellitus type II, controlled Diabetic retinopathy of right eye : Reviewed 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 Indication: Diabetic retinopathy of right eye [...] pressure Indication: Hypertension, benign Planned Observations CALCIFIDIOL (48995) VIT D 25Indication: Vitamin D deficiency On: :51 Request TSH (66281)Indication: Diabetes mellitus type II, controlled On: :51 Request URINALYSIS, W/ MICRO (48085)Indication: Hypertension, benign On: :50 Request MICROALBUMIN: CREATININE RATIO (08148) AND (17263)Indication: Hypertension, benign On: :50 Request METABOLIC PANEL, COMPREHENSIVE (26422)Indication: Hypertension, benign On: :50 Request CBC W/AUTO DIFF WBC (75594)Indication: Hypertension, benign On: :50 Request LIPOPROTEIN, BLD, BY NMR (84378)Indication: Mixed hyperlipidemia On: :50 Request CBC with auto diff (09804)Indication: Thrombocytosis On: :47 Request METABOLIC PANEL, COMPREHENSIVE (09055)Indication: Diabetic nephropathy On: :47 Request HGB A1C (77821)Indication: Diabetic nephropathy On: :47 Request LIPID PANEL (36496)Indication: Mixed hyperlipidemia On: :47 Request METABOLIC PANEL, COMPREHENSIVE (10759)Indication: Hyponatremia with normal extracellular fluid volume On: :46 Request SED RATE ERYTHROCYTE (16165)Indication: Thrombocytosis On: :42 Request C-REACTIVE PROTEIN (20781)Indication: Thrombocytosis On: :42 Request SPEP (31921)Indication: Thrombocytosis On: :41 Request UPEP (71635)Indication: Thrombocytosis On: :41 Request CBC W/AUTO DIFF WBC (63756)Indication: Thrombocytosis On: :41 Request LIPID PANEL (07300)Indication: Mixed hyperlipidemia On: :25 Request CBC with auto diff (77431)Indication: Diabetes mellitus type II, controlled On: 35-Clh-067009:25 Request METABOLIC PANEL, COMPREHENSIVE (62041)Indication: Diabetes mellitus type II, controlled On: 86-Rzr-636246:25 Request Hemoglobin Glyclated (HGB A1C) (65976)Indication: Diabetes mellitus type II, controlled On: 13-Lcj-684743:25 Request LIPID PANEL (20225)Indication: Mixed hyperlipidemia On: :58 Request Hemoglobin Glyclated (HGB A1C) (18380)Indication: Diabetic nephropathy On: 9-Vtj-686998:58 Request MICROALBUMIN: CREATININE RATIO (71945) AND (87733)Indication: Diabetic nephropathy On: 6-Xwd-181469:57 Request METABOLIC PANEL, COMPREHENSIVE (60445)Indication: Diabetic nephropathy On: 1-Jiz-776807:57 Request Potassium Serum (26296)Indication: Hypokalemia (Renamed from Decreased potassium in the blood) On: 79-Ysm-960842:47 Request CBC with auto diff (37288)Indication: Hypertension, benign On: 36-Wzi-550208:41 Request Hemoglobin Glyclated (HGB A1C) (09642)Indication: Diabetes mellitus type II, controlled On: 88-Rae-214880:40 Request METABOLIC PANEL, COMPREHENSIVE (78784)Indication: Hypertension, benign On: 25-Qfg-178987:40 Request LIPID PANEL (59218)Indication: Mixed hyperlipidemia On: 16-Jfs-428951:40 Request URINE GISELLE CULTURE-GLORY COL COUNT (78179)Indication: Other abnormal finding of urine On: 49-Nfy-448159:11 Request HgA1C , Office (42657)Indication: Diabetes type II, uncontrolled, ophthalmic comp On: 17-Mqs-35921:43 Request CBC W/AUTO DIFF WBC (55743)Indication: Diabetes type II, uncontrolled, ophthalmic comp On: 60-Ger-972881:35 Request MICROALBUMIN: CREATININE RATIO (35255) AND (99999)Indication: Diabetic nephropathy On: 45-Imn-046724:35 Request METABOLIC PANEL, COMPREHENSIVE (51371)Indication: Diabetes type II, uncontrolled, ophthalmic comp On: 25-Wra-747128:35 Request LIPID PANEL (67704)Indication: Mixed hyperlipidemia On: 51-Dyy-026699:35 Request CBC W/AUTO DIFF WBC (90686)Indication: Diabetic nephropathy On: 2-Xoh-703550:44 Request METABOLIC PANEL, COMPREHENSIVE (61844)Indication: Diabetic nephropathy On: 0-Frt-502196:44 Request LIPID PANEL (09912)Indication: Mixed hyperlipidemia On: 7-Uzc-952963:44 Request HgA1C , Office (90240)Indication: Diabetes type II, uncontrolled, ophthalmic comp On: 89-Coa-78622:48 Request LIPID PANEL (28400)Indication: Mixed hyperlipidemia On: 76-Mgh-878835:53 Request CBC WITH MANUAL DIFF (51609)Indication: Diabetes type II, uncontrolled, ophthalmic comp On: :53 Request METABOLIC PANEL, COMPREHENSIVE (87540)Indication: Diabetes type II, uncontrolled, ophthalmic comp On: :53 Request MICROALBUMIN: CREATININE RATIO (95061) AND (58563)Indication: Diabetic nephropathy On: :53 Request TSH (09430)Indication: Dysthymic On: : Request MICROALBUMIN: CREATININE RATIO (68696) AND (32442)Indication: Diabetes type II, uncontrolled, ophthalmic comp On: : Request METABOLIC PANEL, COMPREHENSIVE (86323)Indication: Diabetes type II, uncontrolled, ophthalmic comp On: : Request LIPID PANEL (73043)Indication: Mixed hyperlipidemia On: : Request METABOLIC PANEL, COMPREHENSIVE (84224)Indication: Hypertension, benign On: :33 Request CBC WITH MANUAL DIFF (09416)Indication: Hypertension, benign On: :33 Request LIPID PANEL (94251)Indication: Mixed hyperlipidemia On: :33 Request LIPID PANEL (48748)Indication: Mixed hyperlipidemia On: : Request METABOLIC PANEL, COMPREHENSIVE (51265)Indication: Hyponatremia with normal extracellular fluid volume On: :20 Request MICROALBUMIN: CREATININE RATIO (33740) AND (47379)Indication: Diabetic nephropathy On: :20 Request CBC WITH MANUAL DIFF (31984)Indication: Diabetes type II, uncontrolled, ophthalmic comp On: :30 Request METABOLIC PANEL, COMPREHENSIVE (94872)Indication: Diabetes type II, uncontrolled, ophthalmic comp On: :30 Request LIPID PANEL (05593)Indication: Mixed hyperlipidemia On: :30 Request LIPID PANEL (80093)Indication: Mixed hyperlipidemia On: :08 Request MICROALBUMIN: CREATININE RATIO (14560) AND (37535)Indication: Diabetic nephropathy On: :08 Request METABOLIC PANEL, COMPREHENSIVE (23070)Indication: Hypertension, benign On: :08 Request URINE GISELLE CULTURE (GLORY COL COUNT) (48488)Indication: Abnormal urine On: 15-Oab-962608: Request METABOLIC PANEL, COMPREHENSIVE (46378)Indication: Hyponatremia with normal extracellular fluid volume On: 13-Ikh-921974: Request Hemoglobin Glyclated (HGB A1C) (46469)Indication: Diabetes type II, uncontrolled, ophthalmic comp On: 09-Xts-314241:00 Request LIPID PANEL (97807)Indication: Hypertension, benign On: :58 Request METABOLIC PANEL, COMPREHENSIVE (42025)Indication: Hypertension, benign On: :58 Request URINALYSIS, W/ MICRO (54744)Indication: Hypertension, benign On: :43 Request CBC WITH MANUAL DIFF (79349)Indication: Hypertension, benign On: :43 Request METABOLIC PANEL, COMPREHENSIVE (79917)Indication: Hyponatremia with normal extracellular fluid volume On: :43 Request LIPID PANEL (15804)Indication: Mixed hyperlipidemia On: :43 Request Metabolic Panel, Basic (46283)Indication: Hyponatremia with normal extracellular fluid volume On: 84-Mbz-017153:21 Request Comments: 2 weeks TSH (97841)Indication: Hyponatremia with normal extracellular fluid volume On: :58 Request OSMOLALITY URINE (58769)Indication: Hyponatremia with normal extracellular fluid volume On: :58 Request OSMOLALITY BLOOD (04004)Indication: Hyponatremia with normal extracellular fluid volume On: :58 Request SODIUM URINE (61930)Indication: Hyponatremia with normal extracellular fluid volume On: :58 Request SODIUM SERUM (37768)Indication: Hyponatremia with normal extracellular fluid volume On: 90-Dio-367472:58 Request MICROALBUMIN: CREATININE RATIO (20936) AND (58541)Indication: Hypertension, benign On: 29-Tiu-672033:57 Request CBC WITH MANUAL DIFF (30087)Indication: Hypertension, benign On: 77-Zbl-157489:56 Request METABOLIC PANEL, COMPREHENSIVE (63162)Indication: Hypertension, benign On: 89-Jkd-915726:56 Request LIPID PANEL (61583)Indication: Mixed hyperlipidemia On: 21-Vyc-934833:56 Request TSH (51273)Indication: Dysthymic On: : Request URINALYSIS, W/ MICRO (04419)Indication: Diabetes type II, uncontrolled, ophthalmic comp On: Request MICROALBUMIN: CREATININE RATIO (66049) AND (42701)Indication: Diabetes type II, uncontrolled, ophthalmic comp On: Request CBC WITH MANUAL DIFF (58267)Indication: Diabetes type II, uncontrolled, ophthalmic comp On: Request METABOLIC PANEL, COMPREHENSIVE (41558)Indication: Hypertension, benign On: : Request LIPID PANEL (11598)Indication: Mixed hyperlipidemia On: Request Planned Procedures PNEUM VAC ADLT/IMUMNOSPR, On: 22-Aug-2017 Intent SBC/INTRM (10108)By: Chuckie TOMAS, Comments: 0.5 cc given lt arm lot [id number] exp 12/12/18 Kathy Hebert DO [facility] On: 22-Aug-2017 Intent FOR OBESITY, 15 MINUTES (G0447)By: Kathy Noguera DO, DO, Kathleen SCREENING DIGITAL TOMOSYNTHESIS OF On: 22-Aug-2017 Intent BREAST (48117)By: Kathy Nogeura DO, DO, Kathleen ELECTROCARDIOGRAM, COMPLETE (ECG) On: 09-Jul-2017 Intent (66265)By: Kathy Noguera DO Comments: nsr no acute chg-- wavy baseline from parkinson and tremor-- poor R wave progression -non speicifce st flattening Kathy Noguera DO CT SCAN OF ABDOMEN WITH CONTRAST On: 04-Apr-2017 Intent (91543)By: Kathy Noguera DO, DO, Kathleen Flu Vaccine (Quadrivalent) On: 11-Dec-2016 Intent 36558Op: Kathy Noguera DO Comments: Lot:[id number]:09/17/17Amt:0.5mlRoute:IMSite: L DltdGiven By: CHAPIS Montiel signed Kathy Noguera DO SCREENING DIGITAL TOMOSYNTHESIS OF On: 27-Sep-2016 Intent BREAST (18533)By: Kathy Noguera DO, DO, Kathleen SCREENING DIGITAL TOMOSYNTHESIS OF On: 25-Sep-2016 Intent BREAST (70218)By: Sachi Jordan [facility] On: 30-Jun-2016 Intent FOR OBESITY, 15 MINUTES (G0447)By: Kathy Noguera DO, DO, Kathleen ELECTROCARDIOGRAM, COMPLETE (ECG) On: 14-Jun-2016 Intent (06679)By: Kathy Noguera DO Comments: nsr no acute chg Kathy Noguera DO DEXA SCAN AXIAL SKELETON On: 14-Mar-2016 Intent (33525)By: Prateek Swift MD Flu Vaccine (Quadrivalent) On: 07-Dec-2015 Intent 47569Zm: Prateek Swift MD Comments: Lot:[id number]:09/29/16Dose:0.5mLRoute:IMSite:L DltdGiven By:JKMVIS signed CT - Abdomen & Pelvis (IV Contrast On: 08-Sep-2015 Intent Needed)By: Emmanuelle Quiñonez DO Cartoid DopplerBy: Emmanuelle Quiñonez DO On: 08-Sep-2015 Intent A MAMMOGRAM, SCREENING, BOTH BREAST On: 08-Sep-2015 Intent (21328)By: Emmanuelle Quiñonez DO Flu Vaccine (Quadrivalent) On: 24-Feb-2015 Intent 91782Zb: Emmanuelle Quiñonez DO Comments: lot [id number]: 09/30/2015site/route L mary kate, IMamt 0.5mlVIS and ABN signed when applicableChelsea, [facility] ADMINISTRATION OF INFLUENZA VIRUS On: 24-Feb-2015 Intent VACCINE (G0008)By: Emmanuelle Quiñonez DO Radiology - Lumbar SpineBy: Fast On: 18-Nov-2014 Intent Emmanuelle TOMAS MAMMOGRAM, SCREENING, BOTH BREAST On: 12-Aug-2014 Intent (06569)By: Emmanuelle Quiñonez DO Cartoid DopplerBy: Emmanuelle Quiñonez DO On: 12-Aug-2014 Intent A EKG (08636)By: Emmanuelle Quiñonez DO On: 17-Jun-2014 Intent Comments: ekg showed normal sinus rhythym, normal axis, no acute st/t wave changes Prevnar 13 (36196)By: Khang TOMAS, On: 20-Mar-2014 Intent Emmanuelle A Comments: [id number] arm, IMAS BILATERAL MAMMOGRAMS (72889)By: On: 16-Sep-2013 Intent Fast DO, Emmanuelle A CT - Brain/Head (IV Contrast On: 22-Aug-2013 Intent Needed)By: Fast DO, Emmanuelle A EEGBy: Fast DO, Emmanuelle A On: 22-Aug-2013 Intent Eprescribed prescriptions On: 22-Aug-2013 Intent (G8553)By: Khang DO, Emmanuelle A Eprescribed prescriptions On: 10-Jun-2013 Intent (G8553)By: Fast DO, Emmanuelle A Eprescribed prescriptions On: 04-Mar-2013 Intent (G8553)By: Kirsten Cardona Pulse Oximetry (95664)By: Brendan, On: 04-Mar-2013 Intent Kirsten Comments: 96% IMMUNIZ ADMNIN, 1 VAC, SNGL/COMBO On: 21-Jan-2013 Intent (26221)By: Radha Hill LPN Comments: lot # [id number] 6.2014site- L dltdroute-IMdose- 0.5mlVIS and ABN signedCHenderson LUIS ALBERTO FLU VAC, SPLIT, >3 YEARS, On: 21-Jan-2013 Intent INTRAMUSC (09434)By: Radha Hill LPN Venous Doppler - LeftBy: Khang TOMAS, On: 04-Dec-2012 Intent Emmanuelle A EKG (78765)By: Kirsten Cardona On: 04-Dec-2012 Intent Comments: ekg showed normal sinus rhythym, normal axis, no acute st/t wave changes Cartoid DopplerBy: Fast DO, Emmanuelle On: 04-Dec-2012 Intent A Comments: dec Radiology - Knee - Left - Weight On: 04-Dec-2012 Intent BearingBy: Fast DO, Emmanuelle A MAMMOGRAM, SCREENING, BOTH BREASTS On: 02-Sep-2012 Intent (13574)By: Fast DO, Emmanuelle A Eprescribed prescriptions On: 02-Sep-2012 Intent (G8553)By: Kirsten Cardona Eprescribed prescriptions On: 10-Jun-2012 Intent (G8553)By: Kirsten Cardona CT - Abdomen & PelvisBy: Khang TOMAS, On: 08-May-2012 Intent Emmanuelle A Comments: with contrast- stat today call wet read Eprescribed prescriptions On: 08-May-2012 Intent (G8553)By: Kirsten Cardona Eprescribed prescriptions On: 04-Mar-2012 Intent (G8553)By: Kirsten Cardona Radiology - ChestBy: Khang TOMAS, On: 19-Jan-2012 Intent Emmanuelle A Comments: PA & Lat- 2 weeks HOLLEY (Ankle Brachial Index) On: 17-Jan-2012 Intent (02509)By: Emmanuelle Quiñonez DO Cartoid DopplerBy: Darshan Quiñonez DOa On: 17-Jan-2012 Intent A ADMINISTRATION OF INFLUENZA VIRUS On: 17-Jan-2012 Intent VACCINE (G0008)By: Brendan, Comments: Lot #:[id number] date:06.12Amount given:prefilled syringeSite given:L Dltd, IMGiven by: DEBORAH Hernandez signed Kirsten FLU VAC, SPLIT, >3 YEARS, On: 17-Jan-2012 Intent INTRAMUSC (49630)By: Kirsten Cardona Carotid DopplerBy: Darshan Quiñonez DOa On: 12-Jan-2012 Intent A Comments: Please get results to Dr Rowan Redd Phone- [phone] Radiology - Hip - BilateralBy: On: 08-Jan-2012 Intent Emmanuelle Quiñonez DO Comments: weight bearing Radiology - Lumbar SpineBy: Fast On: 08-Jan-2012 Intent Emmanuelle TOMAS A EKG (35020)By: Kirsten Cardona On: 03-Oct-2011 Intent Comments: ekg showed normal sinus rhythym, normal axis, no acute st/t wave changes TDAP VACCINE >7 IM (14226)By: On: 03-Oct-2011 Intent Kirsten Cardona Comments: Lot #[id number]/22/14Site-left deltoidgiven by: Drake Colón LPN PNEUM VAC ADLT/IMUMNOSPR, On: 03-Oct-2011 Intent SBC/INTRM (84950)By: Brendan, Comments: received elsewhere in 2011 Kirsten [...] Non-smoker Non-smoker : Patient Instructions Indication: Non-smoker Dysthymic : How to access health information online Indication: Dysthymic Dysthymic : How to access health information online - Detail Indication: Dysthymic Dysthymic : Patient Instructions Indication: Dysthymic Diabetes mellitus type II, controlled : How [...] Mixed hyperlipidemia : DISCONTINUED - LIPID PANEL (30788) Indication: Mixed hyperlipidemia Hypertension, benign : Patient [...] done last July) and colonoscopy (07/2017 - [place]). The patient does not have durable power of patent prosecution attorney or living will. The p atient has noticed dropping activities and interests, getting bored, feeling helpless, staying at home rather than doing something new or going out, having problems with memory than others and lack of e nergy. Other providers contributing to the patient's care are other: (nephrology and vision screen done in [place] in march).Encounter Diagnosis: BMI 35.0-35.9,adult, Non-smoker, Encounter [...] patient does not have durable power of patent prosecution attorney or living will. The patient has [...] of procedure: (06/22/14 End: 18-Jun-2014 22:24 at [facility] with Dr. Kole Tellez) [...] sugars - insurance wont pay for gl willie- son passed and cousin ??passed so feels [...] Diabetic neuropathy (357.2) [facility] Payers [place]/Medicare Adv planSara Huff; a guarantor
== END ==
PROVIDERS: Family Provider Internal Medicine; PCP Internal Medicine; Referring Provider Internal Medicine Nephrology; Visit Provider Internal Medicine Nephrology
DX: E87.1 Hypo-osmolality and hyponatremia (principal)
CPT/HCPCS: 36415; 80048

== ENCOUNTER → 2018-04-24 08:03 | Outpatient (CLI) | payer MEDICARE, SELFPAY ==
[2018-04-24 10:20] LABS: Anion Gap 9 (5-15); BUN 17 mg/dL (7-18); BUN/Creat Ratio 23.7 RATIO (10-20); Calcium,Total 8.8 mg/dL (8.5-10.1); Chloride 93 mmol/L (98-107); Creatinine, Serum 0.72 mg/dL (0.55-1.02); EST Glomerular Filtration Rate 85 mL/min (>60); Est Glom Filt Rate - Afr Amer 103 mL/min (>60); Glucose 87 mg/dL (74-106); Potassium 3.9 mmol/L (3.5-5.1); Sodium Level 131 mmol/L (136-145)
--- OUTSIDE RECORDS SUMMARY | 2018-06-26 02:48 | XMS RPT_ITS ---
:1945 Author Organization OHIP Care Team Providers Name Role Phone Kathy Noguera DO Attending Unavailable Fast DO, Emmanuelle A Referring Unavailable Chuckie Ktahy TOMAS Consulting Unavailable Zachery, Jayaprakash Attending Unavailable Zachery, Jayaprakash Referring Unavailable Chuckie, Kathy Primary Care Unavailable Zachery, Jayaprakash Attending Unavailable Chuckie, Kathy Primary Care Unavailable Zachery, Jayaprakash Referring Unavailable Chuckie, Kathy Attending Unavailable Chuckie, Kathy Primary Care Unavailable Chuckie, Kathy Attending Unavailable Chuckie, Kathy Primary Care Unavailable Chukcie, Kathy Attending Unavailable Chuckie, Kathy Referring Unavailable Chuckie, Kathy Primary Care Unavailable PROBLEMS PROBLEMS DATE TYPE CONDITION / CODE ATTENDING STATUS SOURCE 04/24/2018 Unknown I10 - Essential Zachery, Active Tiffanie (primary) [facility] hypertension / Hospital I10(ICD-10) Repository 04/17/2018 Unknown E87.1 - Zachery, Active Quentin Hypo-osmolality [facility] and hyponatremia / Hospital E87.1(ICD-10) Repository 04/11/2018 Unknown E55.9 - Vitamin D Chuckie, Kathy Active Quentin deficiency, Community unspecified / Hospital E55.9(ICD-10) Repository 06/20/2017 Unknown D35.02 - Benign Kathy Noguera Active Tiffanie neoplasm of left Community adrenal gland / Hospital D35.02(ICD-10) Repository PROCEDURES PROCEDURES No Procedure Records FoundRESULTS RESULTS BASIC METABOLIC Collected: 04/24/2018 Status: F Source: [place] PROFILE (BMP) 8:09 AM [facility] [place] TYPE CODE TESTS RESULT OUT OF [...] GAP 9 Performed By: #### L500.2500 #### [facility] [address] [place], [place], [address] BASIC METABOLIC Collected: 04/17/2018 Status: F Source: [place] PROFILE (BMP) 8:05 AM [facility] TYPE CODE TESTS RESULT OUT OF [...] GAP 10 Performed By: #### L500.2500 #### [facility] [address] [place], [place], [id number] CBC W/DIFF, AUTOMATED Collected: 03/11/2018 Status: F Source: [place] 7:23 AM [facility] TYPE CODE TESTS RESULT OUT OF [...] Lymph 1.65 Performed By: #### L100.0100 #### [facility] [address] [facility] [place], [address] VITAMIN D,25 HYDROXY Collected: 03/11/2018 Status: F Source: [place] 7:23 AM [facility] TYPE CODE TESTS RESULT OUT OF REFERENCE UNITS RANGE LAB L506.1000 29.95-100.01 ng/mL Low Vitamin D 11.8 25-OH Result Comment: Vitamin D 25(OH) Status Range Deficiency <20 ng/mL (50nmol/L) Insuffciency 20 - 30 ng/mL (50 - 75 nmol/L) Sufficiency 30 - 100 ng/mL (75 - 250 nmol/L) Toxicity >100 ng/mL (>250 nmol/L) Performed By: #### L506.1000 #### [facility] [address] [place], [address] COMPREHENSIVE METABOLIC Collected: 03/11/2018 Status: F Source: [facility] 7:23 AM [facility] TYPE CODE TESTS RESULT OUT OF [...] 12 Performed By: #### L500.4050, L501.9520 #### [facility] [address] [place], [place], [id number] THYROID STIM HORMONE Collected: 03/11/2018 Status: F Source: [place] (TSH) 7:23 AM [facility] [place] TYPE CODE TESTS RESULT OUT OF RANGE REFERENCE UNITS LAB L501.9520 0.358-3.74 uIU/mL Normal TSH 2.93 Performed By: #### L500.4050, L501.9520 #### [facility] [place], [address] NMR LIPOPROFILE Collected: 03/11/2018 Status: F Source: [place] 7:23 AM [facility] [place] TYPE CODE TESTS RESULT OUT OF [...] US Food and Drug Administration. Performed at: [facility] [id number] Rag Baler: Thaddeus Glasgow MD, Phone: [phone] Performed By: #### L3500.0000 #### [facility] (refer to report for specific site) refer to report for address and phone number SCREENING MAMM (CAD), Observed: 10/19/2017 Status: F Source: [facility] 12:46 PM [facility] [place] [address] [place] [address] SCREENING MAMM (CAD), BIL MR#: [id number] Acct: [id number] Name: EUGENE OWENS Rep #: [id number] : 1945 F 71 From: Matt Cortes MD PCP: Kathy Noguera DO Status: [facility] Study: SCREENING MAMM (CAD), BILAT Date of Exam: 10/19/17 Exam# [id number] Ordering Dr: Kathy Noguera DO MAMMOGRAPHY - [...] delay biopsy of a clinically suspicious abnormality. BT2002 Electronically Signed: Matt Cortes MD at 14:43 EDT Tel [phone], Service support , CC: Kathy Noguera DO Beef Pusher: Signed CREATININE FINGERSTICK Collected: 06/20/2017 Status: F Source: [place] 2:05 PM [facility] TYPE CODE TESTS RESULT OUT OF RANGE REFERENCE UNITS LAB L9100.0210 0.55-1.02 mg/dL Normal CREATININE WB 0.6 LAB L9100.0220 >60 mL/min EGFR WB Normal > 60.0000 Performed By: #### L9100.0200 #### [facility] Point of Care [address] [place] [address] ABDOMEN WITH IV Observed: 06/20/2017 Status: F Source: [place] CONTRAST 1:55 PM [facility] [place] [address] [place] [address] Abdomen WITH IV Contrast MR#: [id number] Acct: [id number] Name: EUGENE OWENS Rep #: [id number] : 1945 F 71 From: Levar Meadows MD PCP: Kathy Noguera DO Status: REG CLI Study: Abdomen WITH IV Contrast Date of Exam: 06/20/17 Exam# [id number] Ordering Dr: Kathy Noguera DO STUDY: CT [...] umbilicus is only partially included in the xempn-xn-cajg, but again appears to contain nondistended small [...] Service support , CC: Kathy Noguera DO Beef Pusher: Signed ALLERGIES ALLERGIES DATE TYPE / CODE NAME / CODE REACTION SEVERITY SOURCE 08/05/2013 Drug codeine/F006 Vomiting Unknown [facility] Allergy/4160 619043([facility]ly [facility] [address](SNOMED M) Repository CT) ENCOUNTERS ENCOUNTERS ADMIT/DISCHARGE ACCOUNT ADMITTING ENCOUNTER LOCATION SOURCE NUMBER CLASS 04/24/2018 [id number] Ambulatory [address]:LAB.FUTUR Repository E 04/17/2018 [id number] Ambulatory Tiffanie Tiffanie 3 [facility] ing:MTLAB Repository 03/15/2018 [id number] Ambulatory Building:[facility] OHIP Practices Repository 03/11/2018 [id number] Ambulatory Quentin Tiffanie 7 [facility] ing:MTLAB Repository 10/19/2017 [id number] Ambulatory Tiffanie Tiffanie 4 [facility] ing:OPBI Repository 06/20/2017 [id number] Ambulatory Tiffanie Tiffanie 2 [facility] ing:CT Repository PAYERS PAYERS ENCOUNTER GUARANTOR PAYER SUBSCRIBER SOURCE 04/24/2018 EUGENE Song NICOLA S Primary EUGENE ROGERSB: Quentin WATER Insurance:ANTHEM [id number] [place] [place] [address]Dfb: Number: Repository [id number] (HP) Date:4841-33-91NN [address] [place] [address]QE: 04/24/2018 Secondary NOT GIVENUNK T[place] Insurance:SELF PAY [facility] Number: Effective Repository Date:2018-04-22 04/17/2018 EUGENE Song [id number] Primary EUGENE ROGERSB: Quentin WATER Insurance:ANTHEM [id number] Community [place] [address]Lhw: Number: Repository [id number] () Date:6913-79-79RT [address] [place] [address]JC: 04/17/2018 Secondary NOT GIVENUNK Tiffanie Insurance:SELF PAY [facility] Number: Effective Repository Date:2018-04-17 03/15/2018 Eugene SameerB: Primary Eugene UnderwoodDarrylB: OHIP Practices [id number] Insurance:[place]/Medi [id number] Repository [facility], Number: [place], [place] [address]Zou: [id number] [place] [address]Azw: Date:2650-63-14Pveu (HP)Tel: (204) Name:GPO Box (HP) [phone] () [address] [place] [address] [place] [id number]: 03/15/2018 Secondary Eugene HuffDOB: OHIP Practices Insurance:[place] [id number] Repository /[facility] Number: [facility] [id number] [facility], Date: - [place] [address]Xzm: [id number] Name:[address] () [address], [place] [id number]: 03/11/2018 EUGENE F [id number] [address] Primary EUGENE F HUFFDOB: Tiffanie WATER Insurance:ANTHEM [id number] Community [place] [address]Fzm: Number: Repository [id number] () Date:3064-06-11OF [address] [place] [address] [place] [address]IK: 03/11/2018 Secondary NOT GIVENUNK Quentin Insurance:SELF PAY [facility] Number: Effective Repository Date:2018-03-11 10/19/2017 Eugene F [id number] Eugene F HuffDOB: Tiffanie WATER Insurance:ANTHEM [id number] Community [place] [address]Qbv: Number: Repository [id number] () Date:6953-33-32QK [address] [place] [address] [place] [address]WO: 10/19/2017 Secondary NOT GIVENUNK Tiffanie Insurance:SELF PAY [facility] Number: Effective Repository Date:2017-10-01 06/20/2017 Eugene F [id number] Eugene F HuffDOB: Tiffanie WATER Insurance:DAVID [id number] Community [place] [address]Jxj: Number: Repository [id number] (HP) Date:8722-41-65ZI [address], [place] [address]PM: 06/20/2017 Secondary NOT GIVENUNK Tiffanie Insurance:SELF PAY [facility] Number: Effective Repository Date:2017-06-12
== END ==
PROVIDERS: Family Provider Internal Medicine; PCP Internal Medicine; Referring Provider Internal Medicine Nephrology; Visit Provider Internal Medicine Nephrology
DX: I10 Essential (primary) hypertension (principal)
CPT/HCPCS: 36415; 80048

== ENCOUNTER → 2018-10-01 07:11 | Outpatient (CLI) | payer MEDICARE, SELFPAY ==
[2018-10-01 10:23] LABS: Color, Urine Yellow (Yellow); Glucose, Dipstick Normal (Normal); Ketone-Dipstick 5 mg/dl (Negative); Leukocyte Esterase-Dipstick 25 /ul (Negative); Nitrite-Dipstick Negative (Negative); Occult Blood-Urine 10 /ul (Negative); Protein-Dipstick 100 mg/dl (Negative); Urine Bilirubin Dipstick Negative (Negative); Urine Clarity Cloudy (Clear); Urine Urobilinogen Normal (Normal)
[2018-10-01 10:31] LABS: Bacteria 2+ /hpf (None Seen); Red Blood Cells-Urine 0-5 SEEN /hpf (0-5); Squamous Epithelial Cells - UA 5-10 SEEN /hpf (5-10); White Blood Cells 0-5 SEEN /hpf (0-5)
[2018-10-01 10:32] LABS: Absolute Lymphocyte Count 1.73 X10^3/ul (0.83-4.51); Absolute Neutrophil Count 5.1 X10^3/uL (2.0-7.7); Basophil# 0.04 X10^3/uL; Basophil% 0.5 % (0-1); Eosinophil# 0.59 X10^3/uL; Eosinophils% 7.1 % (0-5); Hematocrit 39.8 % (37-47); Hemoglobin 13.2 g/dl (12.0-15.0); Lymphocyte # 1.73 X10^3/ul (4.0); Lymphocyte % 20.7 % (19-41); Mean Corp Hgb Conc 33.2 g/gl (32-36); Mean Corpuscular Volume 84.3 fL (81-99); Mean Platelet Vol. 9.4 fl (6.2-12.0); Monocyte# 0.88 X10^3/uL; Monocyte% 10.5 % (0-10); Mucous, Urine 1+ /hpf (<or=2+); Neutrophil % 61.1 % (47-70); Platelet Count 376 K/mm3 (150-450); RBC Distribution Width CV 13.1 % (11.6-14.6); RBC Distribution Width SD 39.9 fl (35.1-43.9); Red Blood Count 4.72 M/mm3 (4.2-5.4); White Blood Count 8.4 K/mm3 (4.4-11.0)
[2018-10-01 10:35] LABS: POSITIVE COUNT NO; POSITIVE DIFFERENTIAL NO; POSITIVE MORPHOLOGY NO
[2018-10-01 10:45] LABS: ALB/GLOB Ratio 0.8 RATIO (0.9-2.4); AST(SGOT) 12 U/L (15-37); Alanine Aminotransfer ALT/SGPT 8 U/L (13-56); Albumin, Serum 3.3 g/dL (3.2-5.0); Alkaline Phosphatase 113 U/L (45-117); Anion Gap 9 (5-15); BUN 13 mg/dL (7-18); BUN/Creat Ratio 18.1 RATIO (10-20); Calcium,Total 8.8 mg/dL (8.5-10.1); Chloride 94 mmol/L (98-107); Creatinine, Serum 0.72 mg/dL (0.55-1.02); EST Glomerular Filtration Rate 84 mL/min (>60); Est Glom Filt Rate - Afr Amer 102 mL/min (>60); Globulin 4.4 g/dL (2.2-4.2); Glucose 121 mg/dL (74-106); Potassium 3.7 mmol/L (3.5-5.1); Protein, Total 7.7 g/dL (6.4-8.2); Sodium Level 133 mmol/L (136-145); Thyroid Stim Hormone (TSH) 2.67 uIU/mL (0.358-3.74); Vitamin D,25 Hydroxy 17.8 ng/mL (29.95-100.01)
[2018-10-01 11:22] LABS: Microalbumin:Creatinine Ratio 829.6 mg/g CRE (<30 mg/g CRE)
[2018-10-02 14:06] LABS: CHOLESTEROL TOTAL 115 mg/dL (100-199); HDL-C 46 mg/dL (>39); SMALL LDL-P 478 nmol/L (<=527); TRIGLYCERIDES 114 mg/dL (0-149)
[2018-10-04 17:00] LABS: INSULIN RESISTANCE SCORE 44 (<=45); LDL SIZE 20.6 nm (>20.5); LDL-C 46 mg/dL (0-99); LDL-P 685 nmol/L (<1000)
== END ==
PROVIDERS: Family Provider Internal Medicine; PCP Internal Medicine; Referring Provider Internal Medicine; Visit Provider Internal Medicine
DX: E55.9 Vitamin D deficiency, unspecified (principal); E78.2 Mixed hyperlipidemia; E11.9 Type 2 diabetes mellitus without complications; I10 Essential (primary) hypertension
CPT/HCPCS: 36415; 80053; 80061; 81001; 82043; 82306; 82570; 83704; 84443; 85025

== ENCOUNTER → 2018-10-22 14:10 | Outpatient (CLI) | payer MEDICARE, SELFPAY ==
--- NOTE | 2018-10-22 14:11 | BI_ITS ---
MAMMOGRAPHY - BILATERAL SCREENING 3-D TOMOSYNTHESIS REASON FOR EXAM: Female, 72 years old. Bilateral Screening 3-D tomosynthesis PERTINENT HISTORY: Sister with breast cancer.. TECHNIQUE: 2-D mammograms and 3-D Tomosynthesis of the breast (s) were performed. CAD was performed. COMPARISON: Multiple recent studies, the most recent from 10/19/2017 FINDINGS: The breast composition is almost entirely fat. Scattered benign calcifications are seen. No dense spiculated masses or suspicious microcalcifications are identified. No architectural distortion is identified. There is no skin thickening or retraction. There has been no significant change since the prior study. BI/SCREEN MAMM (CAD) W/REGINE BILAT IMPRESSION: No mammographic signs of malignancy. Routine yearly mammograms recommended. ASSESSMENT CATEGORY: BIRADS Category 1: Negative. A letter regarding these results will be sent to the patient by the facility within 30 days. FOLLOW UP RECOMMENDATION: Yearly follow up mammogram recommended. (A) Approximately 10% of breast cancers are not detected by mammography. A normal mammogram should not delay biopsy of a clinically suspicious abnormality. Electronically Signed: Kevin Cavanaugh MD at 15:29 EDT , Service support ,
--- NOTE | 2018-10-22 14:16 | BD_ITS ---
STUDY: DUAL ENERGY X-RAY ABSORPTIOMETRY / DXA REASON FOR EXAM: Female, 72 years old. Postmenopausal. Loss of height. TECHNIQUE: Bone Mineral Density (BMD) measurements of lumbar spine and bilateral hips were obtained. COMPARISON: Comparison is made with prior study dated July 13, 2016. FINDINGS: Lumbar Spine (L1-L4): g/cm2 (1.190) / T-score (-0.1) / Z-score (1.6) Findings are suggestive of normal bone density with a low fracture risk. Left Femur Total: g/cm2 (0.999) / T-score (-0.1) / Z-score (1.6) Left Femoral Neck: g/cm2 (0.882) / T-score (-1.1) / Z-score (0.7) Right Femur Total: g/cm2 (0.875) / T-score (-1.0) / Z-score (0.6) Right Femoral Neck: g/cm2 (0.862) / T-score (-1.3) / Z-score (0.6) The T-Scores on the most recent prior examination were: Lumbar Spine (L1-L4): There has been worsening of bone density since the previous examination. Left Femur Total: which represents a worsening of 0.2%. Right Femur Total: which represents a worsening of 7.5%. BD/Dexa Bone Density Study IMPRESSION: The patient is considered osteopenic as outlined below according to World Kareem Organization (WHO) criteria with a low fracture risk. There has been worsening of bone density since the previous examination. Reference Information: The T-score is the number of standard deviations above or below the standard which is normal for young adults at their peak bone mineral density. The World Health Organization (WHO) interprets the T-scores as follows: Above -1 Normal bone density Between -1 and -2.5 Osteopenia Equal to / or below -2.5 Osteoporosis As a practical clinical guideline, osteopenia may be graded as follows: Mild -1 through -1.5 Moderate -1.6 through -2.0 Severe -2.1 through -2.4 The Z-score is the number of standard deviations above or below age-matched controls. A Z-score of less than -1.5 would be considered abnormal. References: 1. NIH Osteoporosis and Related Bone Diseases http://www.osteo.org 2. International Society for Clinical Densitometry http://www.iscd.org 3. National Osteoporosis Foundation http://www.nof.org Electronically Signed: Matt Cortes, at 10:03 EDT , Service support ,
== END ==
PROVIDERS: Family Provider Internal Medicine; PCP Internal Medicine; Referring Provider Internal Medicine; Visit Provider Internal Medicine
DX: Z78.0 Asymptomatic menopausal state (principal); Z12.31 Encounter for screening mammogram for malignant neoplasm of breast; Z80.3 Family history of malignant neoplasm of breast
CPT/HCPCS: 77063; 77067; 77080

== ENCOUNTER 2019-03-15 22:27 | Emergency (ER) | payer MEDICARE, SELFPAY ==
[2019-03-15 22:28] VITALS: BP 140/65; PULSE 95; RESP 20; TEMP 36.7; O2SAT 99; BMI 35.2
--- NOTE | 2019-03-15 23:14 | EKG12_ITS ---
Test Reason : WEAKNESS Blood Pressure : / mmHG Vent. Rate : 089 BPM Atrial Rate : 089 BPM P-R Int : 196 ms QRS Dur : 070 ms QT Int : 360 ms P-R-T Axes : 045 049 054 degrees QTc Int : 438 ms Normal sinus rhythm Normal ECG Confirmed by VINAY ROD, TONNY ([id number]), television news video editor MARQIUS DARNELL ([id number]) on 03/19/2019 1:01:29 PM Referred By: ABBY Confirmed By:TONNY MCLEAN MD
--- NOTE | 2019-03-15 23:15 | RAD_ITS ---
HISTORY: FAMILY CONCERNED BECAUSE PT IS LETHARGIC,WEAK AND SOB EXAM: XR Chest 1 View: COMPARISON: None FINDINGS: # of images incl. paperwork: 1 Lungs are clear. Heart is not enlarged. Calcific plaque within the aortic arch. Dextroscoliosis with thoracic spondylosis. Chronic right shoulder full thickness rotator cuff tear with elevation of the right humeral head within the right glenoid fossa and pseudoarticulation with the undersurface of the right acromion. Bilateral acromioclavicular arthritis. Pulmonary vascularity is distinct. No effusions. RAD/Chest 1 View (Portable) IMPRESSION: No acute cardiopulmonary disease perceived. at 2338 Reported and signed by: Johann Phan MD Electronically Signed: Johann Phan MD at 23:37 EST Tel , Service support ,
--- NOTE | 2019-03-15 23:16 | ED.DCSUM_ITS ---
- ER Visit Summary Date of Service: 03/15/19 Chief Complaint: Generalized weakness History of Present Illness: The patient is a 73 F of Parkinson's disease, diabetes and hypertension. Prior colon cancer years ago with a partial colectomy and reportedly cured. Tonight was at home got generally weak. Danelle parry said she did not lose consciousness but she got limp almost like she had a seizure but she is never had a seizure before. She has not been ill recently. She is had no head trauma. She has had no nausea or vomiting. She has intermittent diarrhea since her colon cancer and partial colectomy. She has had no dysuria. No fever. Physical Examination: Older female no acute distress. Vital signs are stable afebrile. Pulse ox 90% on room air no hypoxia. HEENT exam unremarkable atraumatic. Neck nontender. Lungs are clear. Heart regular rhythm no murmur. Abdomen soft nontender. Patient is moving all 4 extremities. She does have tremors in both feet consistent with Parkinson's disease. Calves are nontender. There is no edema. Neurologically she is awake and alert with no focal motor deficits. Again Parkinson's tremors. Test Results: CBC White count of 9. Hemoglobin 13. No bands. Electrolytes sodium is 129 her sodium often runs low between 128 and 31. Normal creatinine and gap. UA normal. No signs of infection. EKG normal sinus rhythm rate 89 no acute signs of MA or ischemia or dysrhythmia. Portable 1 view chest x-ray read both by myself the radiologist shows no acute abnormality. Normal cardiac silhouette and no infiltrate. CT brain chronic changes no acute process. Read by the radiologist and reviewed by me. Emergency Department Course and Treatment: Older female generalized weakness will undergo evaluation with labs and urinalysis and imaging. Repeat exam at 1320 9 AM patient is doing well. Discussed with her and her daughter test results they are comfortable being discharged to home. Treatment Plan: Follow-up with her primary care physician as needed. Disposition: Discharge Impression: Generalized weakness of uncertain etiology Chronic hyponatremia History of Parkinson's This note was generated with [employer] software. It may contain incorrect words, spelling, and punctuation that were not noted in review of the chart prior to signing ED Disposition - Plan for ED Patient: Referrals: Kathy Noguera DO [Primary Care Provider] -
[2019-03-15 23:23] LABS: Absolute Neutrophil Count 5.9 X10^3/uL (2.0-7.7); Basophil# 0.07 X10^3/uL; Basophil% 0.8 % (0-1); Eosinophil# 0.54 X10^3/uL; Hematocrit 39.2 % (37-47); Hemoglobin 13.1 g/dL (12.0-15.0); Lymphocyte % 15.6 % (19-41); Mean Corp Hgb Conc 33.4 g/dL (32-36); Mean Corpuscular Hgb 28.2 pg (27.0-32.0); Mean Corpuscular Volume 84.5 fL (81-99); Mean Platelet Vol. 8.9 fl (6.2-12.0); Monocyte# 1.06 X10^3/uL; Monocyte% 11.8 % (0-10); NRBC Flagged by Analyzer 0 % (0-5); Neutrophil % 65.5 % (47-70); Platelet Count 396 K/mm3 (150-450); RBC Distribution Width CV 12.9 % (11.6-14.6); RBC Distribution Width SD 39.8 fl (35.1-43.9); Red Blood Count 4.64 M/mm3 (4.2-5.4)
[2019-03-15 23:32] LABS: Anion Gap 8 (5-15); BUN 12 mg/dL (7-18); BUN/Creat Ratio 14.6 RATIO (10-20); Chloride 92 mmol/L (98-107); Creatinine, Serum 0.82 mg/dL (0.55-1.02); EST Glomerular Filtration Rate 72 mL/min (>60); Est Glom Filt Rate - Afr Amer 88 mL/min (>60); Estimated Creatinine Clearance 51.98 ml/min; Glucose 194 mg/dL (74-106); Potassium 3.7 mmol/L (3.5-5.1); Sodium Level 129 mmol/L (136-145)
[2019-03-16 00:01] LABS: Bacteria 0 SEEN /hpf (None Seen); Mucous, Urine 0 SEEN /hpf (<or=2+)
--- NOTE | 2019-03-16 00:05 | CT_ITS ---
HISTORY: WEAK/LETHARGIC and SOB. Pt has hx of Parkinson's, colon cancer, HTN and diabetes Technique:CT Head or Brain W/O Contrast Injection Number of Images including paperwork:247 Comparison: MRI of the brain from August 20, 2015 Findings: CT images of the head were obtained without contrast. Periventricular deep and subcortical white matter disease is present. Paranasal sinuses are clear except for a small amount of fluid layering dependently within the left sphenoid sinus.. The brain is atrophic. Calcific ASCVD involves intracranial arteries. No acute intracranial edema or hemorrhage. No acute abnormality of orbits. Middle ear cavities and mastoid air cells are well aerated. Skull is normal. CT/Brain/Head without Contrast IMPRESSION: No acute intracranial abnormality. Chronic changes as above. ASPECT 10. Individualized dose optimization techniques were used for this CT. at 0047 Reported and signed by: Johann Phan MD Electronically Signed: Johann Phan MD at 0:46 EST Tel , Service support ,
[2019-03-16 00:09] LABS: Color, Urine Yellow (Yellow); Glucose, Dipstick Normal (Normal); Ketone-Dipstick Negative (Negative); Leukocyte Esterase-Dipstick Negative /ul (Negative); Nitrite-Dipstick Negative (Negative); Occult Blood-Urine Negative /ul (Negative); Protein-Dipstick 100 mg/dl (Negative); Urine Bilirubin Dipstick Negative (Negative); Urine Clarity Clear (Clear); Urine Urobilinogen Normal (Normal)
[2019-03-16 00:21] LABS: Red Blood Cells-Urine 0-5 SEEN /hpf (0-5); Squamous Epithelial Cells - UA 0-5 SEEN /hpf (5-10); White Blood Cells 0-5 SEEN /hpf (0-5)
[2019-03-16 01:01] VITALS: BP 155/76; PULSE 86; RESP 16
--- NOTE | 2019-03-16 01:32 | ED.DEP ---
ED Disposition - Plan for ED Patient: Disposition: Home or Assisted Living Instructions: WEAKNESS, Unk Cause Referrals: Kathy Noguera, [Primary Care Provider] - 3-5 Days if not improving Additional Instructions: Your labs look good tonight. Your sodium is a little low at 129. You have been low before. Just add some salt to your food the next several days that should improve. Follow-up with your doctor as needed. Return if worse.
[2019-03-16 01:48] VITALS: BP 146/71; PULSE 86; RESP 18; O2SAT 98
== END 2019-03-16 01:50 | disposition home or self-care (01) ==
PROVIDERS: Emergency Provider Emergency Medicine; Family Provider Internal Medicine; PCP Internal Medicine
DX: E87.1 Hypo-osmolality and hyponatremia (principal); G20 Parkinson's disease; E11.9 Type 2 diabetes mellitus without complications; I10 Essential (primary) hypertension; R19.7 Diarrhea, unspecified; Z79.82 Long term (current) use of aspirin; Z79.4 Long term (current) use of insulin; Z79.899 Other long term (current) drug therapy; Z85.038 Personal history of other malignant neoplasm of large intestine; Z90.49 Acquired absence of other specified parts of digestive tract
CPT/HCPCS: 70450; 71045; 80048; 81001; 85025; 93005; 99285; P9612; A4216

== ENCOUNTER → 2019-09-17 12:29 | Outpatient (CLI) | payer MEDICARE, SELFPAY ==
--- NOTE | 2019-09-17 12:45 | CT_ITS ---
STUDY: CT BRAIN WITHOUT CONTRAST REASON FOR EXAM: Female, 73 years old. MEMORY CHANGE RADIATION DOSAGE (If Supplied By Facility): CTDIvol = ( 44.99 ) mGy, DLP = ( 796.11 ) mGycm TECHNIQUE: Transaxial CT imaging of the brain was performed without administration of intravenous contrast material. Individualized dose optimization techniques were used for this CT. COMPARISON: Comparison is made with prior study of March 16, 2019. FINDINGS: Normal soft tissue structures. Normal calvarium. There is mild cerebral atrophy with widening of the extra-axial spaces and ventricular dilatation. There are areas of decreased attenuation within the white matter tracts of the supratentorial brain, consistent with microvascular disease changes. Normal basal ganglia and thalami. Normal brainstem. Normal cerebellum. 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 There is no intracranial hemorrhage. There are no findings of an acute ischemic infarction. Atherosclerotic calcification of the cavernous portions of the internal carotid arteries bilaterally. Air-fluid level in the left sphenoid sinus. CT/Brain/Head without Contrast IMPRESSION: Chronic involutional changes of the brain. Air-fluid level in the left sphenoid sinus. Electronically Signed: Matt Cortes, at 13:26 EDT , Service support ,
[2019-09-17 13:48] LABS: Erythrocyte Sedimentation Rate 85 mm/hr (0-30)
[2019-09-17 14:00] LABS: Vitamin B12 363 pg/mL (211-911)
[2019-09-17 14:08] LABS: ALB/GLOB Ratio 0.6 RATIO (0.9-2.4); AST(SGOT) 11 U/L (15-37); Alanine Aminotransfer ALT/SGPT 8 U/L (13-56); Albumin, Serum 3.3 g/dL (3.2-5.0); Alkaline Phosphatase 124 U/L (45-117); Anion Gap 10 (5-15); BUN 13 mg/dL (7-18); BUN/Creat Ratio 15.1 RATIO (10-20); Calcium,Total 8.9 mg/dL (8.5-10.1); Chloride 90 mmol/L (98-107); Creatinine, Serum 0.86 mg/dL (0.55-1.02); EST Glomerular Filtration Rate 68 mL/min (>60); Est Glom Filt Rate - Afr Amer 83 mL/min (>60); Globulin 5.1 g/dL (2.2-4.2); Glucose 228 mg/dL (74-106); Potassium 3.8 mmol/L (3.5-5.1); Protein, Total 8.4 g/dL (6.4-8.2); Sodium Level 128 mmol/L (136-145)
== END ==
PROVIDERS: PCP Internal Medicine; Referring Provider Psychiatry & Neurology Neurology; Visit Provider Psychiatry & Neurology Neurology
DX: R41.3 Other amnesia (principal)
CPT/HCPCS: 36415; 70450; 80053; 82607; 84443; 85652

== ENCOUNTER → 2019-12-05 07:48 | Outpatient (CLI) | payer MEDICARE, SELFPAY ==
[2019-12-05 10:14] LABS: Absolute Lymphocyte Count 1.16 X10^3/uL (0.83-4.51); Absolute Neutrophil Count 9.1 X10^3/uL (2.0-7.7); Basophil# 0.06 X10^3/uL; Basophil% 0.5 % (0-1); Eosinophils% 4.3 % (0-5); Hematocrit 42.2 % (37-47); Hemoglobin 13.5 g/dL (12.0-15.0); Lymphocyte # 1.16 X10^3/ul (4.0); Lymphocyte % 9.9 % (19-41); Mean Corpuscular Hgb 26.9 pg (27.0-32.0); Mean Corpuscular Volume 84.2 fL (81-99); Mean Platelet Vol. 9.4 fl (6.2-12.0); Monocyte# 0.86 X10^3/uL; Monocyte% 7.4 % (0-10); NRBC Flagged by Analyzer 0 % (0-5); Neutrophil # 9.05 X10^3/uL (2.7-7.7); Neutrophil % 77.5 % (47-70); Platelet Count 487 K/mm3 (150-450); RBC Distribution Width SD 39.8 fl (35.1-43.9); Red Blood Count 5.01 M/mm3 (4.2-5.4); White Blood Count 11.7 K/mm3 (4.4-11.0)
[2019-12-05 10:50] LABS: ALB/GLOB Ratio 0.6 RATIO (0.9-2.4); AST(SGOT) 12 U/L (15-37); Alanine Aminotransfer ALT/SGPT 8 U/L (13-56); Albumin, Serum 3.1 g/dL (3.2-5.0); Alkaline Phosphatase 131 U/L (45-117); Anion Gap 9 (5-15); BUN 16 mg/dL (7-18); BUN/Creat Ratio 17.7 RATIO (10-20); Calcium,Total 8.7 mg/dL (8.5-10.1); Chloride 91 mmol/L (98-107); Cholesterol 111 mg/dL (200); Creatinine, Serum 0.91 mg/dL (0.55-1.02); EST Glomerular Filtration Rate 64 mL/min (>60); Est Glom Filt Rate - Afr Amer 78 mL/min (>60); Globulin 5.2 g/dL (2.2-4.2); Glucose 233 mg/dL (74-106); High Density Lipoprotein 54 mg/dL; Potassium 3.7 mmol/L (3.5-5.1); Protein, Total 8.3 g/dL (6.4-8.2); Sodium Level 128 mmol/L (136-145); Thyroid Stim Hormone (TSH) 3.29 uIU/mL (0.358-3.74); Triglycerides 88 mg/dL; Very Low Density Lipoprotein 18 mg/dL (5-40)
[2019-12-05 10:52] LABS: Hemoglobin A1c 10.6 % (3.8-5.6)
== END ==
PROVIDERS: PCP Family Medicine; Referring Provider Family Medicine; Visit Provider Family Medicine
DX: E11.9 Type 2 diabetes mellitus without complications (principal); I10 Essential (primary) hypertension
CPT/HCPCS: 36415; 80053; 80061; 82043; 82570; 83036; 84443; 85025

== ENCOUNTER 2019-12-26 13:00 | Outpatient (RCR) | payer MEDICARE, SELFPAY ==
[2019-12-12 09:57] VITALS: BP 136/66; PULSE 92; RESP 16; TEMP 36.3; BMI 49.0
--- NOTE | 2019-12-12 15:26 | PCM.WC.HP ---
(1) Diabetic ulcer of lower leg Status: Chronic Current Visit: Yes Code(s): E11.622 - Type 2 diabetes mellitus with other skin ulcer; L97.909 - Non-pressure chronic ulcer of unspecified part of unspecified lower leg with unspecified severity (2) Bilateral lower extremity edema Status: Acute Current Visit: Yes Code(s): R60.0 - Localized edema (3) Type 2 diabetes mellitus Status: Chronic Current Visit: Yes Code(s): E11.9 - Type 2 diabetes mellitus without complications (4) Hyperlipidemia Status: Chronic Current Visit: No Code(s): E78.5 - Hyperlipidemia, unspecified (5) Hypertension Status: Chronic Current Visit: No Code(s): I10 - Essential (primary) hypertension History of Present Illness Date of Service: 12/12/19 Chief Complaint: Right lower leg ulcers History of Wound: The patient presents to the wound healing center on 12/12/2019 for evaluation of ulcers of her right lower extremity. She presents today with her daughter. She has a past medical history significant for Parkinson's disease, type 2 diabetes mellitus, hypertension and hyperlipidemia. She has chronic lower extremity edema. A few months ago, the patient began developing small ulcerations of her right lower extremity. She also had an increase in lower extremity swelling at that time, as well as weeping edema and warmth and erythema of bilateral lower extremities. She was seen by her primary care doctor and recently completed a course of doxycycline for cellulitis. Her daughter states that the erythema and warmth in the patient's lower extremities has significantly improved since initiation and completion of doxycycline. The patient does not use wound dressings at home. She applies aloe lotion to bilateral lower extremities for moisturization. She does not use compression at home. The patient denies any fever, chills, nausea, vomiting, or diarrhea. She denies any signs of infection, including increasing pain, redness, swelling, or purulent/foul-smelling drainage from affected area. Labs from 12/05/2019 were significant for WBC 11.7, platelets 487, ESR 85, glucose 233, hemoglobin A1c 10.6%, alk phos 131. She has not had any recent vascular studies. Past Medical History Past Medical History: Chronic Problems Diabetic ulcer of lower leg (Chronic) History of colon cancer (Chronic) Hyperlipidemia (Chronic) Hypertension (Chronic) Type 2 diabetes mellitus (Chronic) Surgical History: cholecystectomy, colectomy - Right hemicolectomy secondary to colon cancer Allergies/Adverse Reactions: Allergies codeine Adverse Reaction (Verified 03/15/19 22:31) Vomiting Home Medications: Ambulatory Orders Medication Instructions Recorded Aspirin, Baby 81 mg PO DAILY 08/05/13 Insulin Glargine [Lantus SoloStar 30 units SC QHS 08/05/13 Pen] Metformin HCl [Metformin HCl ER] 500 mg PO BID 08/05/13 Paroxetine HCl 20 mg PO QHS 08/05/13 Rosuvastatin Calcium [Crestor] 5 mg PO QHS 08/05/13 Lisinopril [Zestril] 20 mg PO BID #60 tablet 08/07/13 Amlodipine [Norvasc] 5 mg PO BID 03/15/19 Carbidopa-Levo 25-100 mg Odt 2 tab PO Q4H 03/15/19 Metoprolol Succinate 25 mg PO DAILY 03/15/19 Pramipexole Di-HCl [Pramipexole 0.25 mg PO BID 03/15/19 Dihydrochloride] Smoking Status: Never smoker Review of Systems Constitutional: Denies: Chills, Fever Eyes: Denies: Blurred vision HEENT: Reports: Hard of Hearing Cardiovascular: Reports: Edema. Denies: Chest Pain Respiratory: Denies: Cough, Shortness of Breath Gastrointestinal: Denies: Abdominal Pain, Diarrhea, Nausea, Vomiting Musculoskeletal: Reports: Leg Pain Skin: Reports: Wounds - Ulcers of right lower extremity Neurological: Reports: Balance problems - Imbalance related to Parkinson's Hematologic/ Lymphatic: Denies: Anemia - Physical Exam Vital Signs Temp Pulse Resp BP 97.3 F L 92 16 136/66 H 12/12/19 09:57 12/12/19 09:57 12/12/19 09:57 12/12/19 09:57 General: Alert, Cooperative, No apparent distress HEENT: Atraumatic, Normocephalic Oral: Moist Mucosa Neck: Trachea Midline Lungs: Clear to auscultation, Normal air movement, No rhonchi, No wheeze, No rales Cardiovascular: Regular rate, Regular Rhythm Abdomen: Soft, Non Tender Extremities: No clubbing, No cyanosis, Capillary Refill Less than 3 Seconds, Diminished Peripheral Pulses, Edema - +1 pitting edema of bilateral lower extremities Skin: Ulcer/ Wound - Ulcers of right lower extremity with subcutaneous tissue exposed. Moderate amount of slough devitalized tissue present. There is no tunneling, undermining, or probing to bone. There is no choco-ulcer erythema or warmth. No purulent or foul-smelling drainage. Wound Measurements and Assessment WC - Nurse 1 - General Ulcer Measurement Start: 12/12/19 09:57 Freq: Status: Active Protocol: Activity Type Activity Date Activity User E-Sign Co-Sign Detail Recorded Client Recorded Date Recorded By Document 12/12/19 09:57 [id number] 12/12/19 10:15 PAVITHRA 12/12/19 09:57 Wound Center Nurse 1 [Ulcer Assessment] 2-right medial jenkins -Combined with other wound No -Current Size (cm) - Length 1.0 -Current Size (cm) - Width 0.4 -Current Size (cm) - Depth 0.1 -Total Square Cm 0.40 -Photo Taken Yes -Epithelialization None Present -Tunneling No -Undermining/Tunneling No -Circular Undermining No -Classification - Martinez Grading ( Grade 1 Diabetic Ulcer) -Exudate Amt None Present -Wound Margin Flat & Intact -Granulation Amt None Present (0 %) -Slough/Fibrin Yes -Necrosis Amt Large (67-100%) -Necrotic Tissue Type Adherent Slough -Structure Exposed N/A -Texture (Choco-wound Skin Appearance) Assessed, Localized Edema -Moisture (Choco-wound Skin Appearance Assessed,Dry/ ) Scaly -Color (Choco-wound Skin Appearance) Assessed -Temperature (Choco-wound Skin No Abnormality Appearance) (Pt Warm) -Ulcer Cleansing Rinsed/ Irrigated with Saline -Foul Odor after Cleansing No -Anesthetic Used 4% Lidocaine Solution 1-right medial leg -Combined with other wound No -Current Size (cm) - Length 1.4 -Current Size (cm) - Width 1.7 -Current Size (cm) - Depth 0.1 -Total Square Cm 2.38 -Photo Taken Yes -Epithelialization Small 1-33% -Tunneling No -Undermining/Tunneling No -Circular Undermining No -Classification - Martinez Grading ( Grade 1 Diabetic Ulcer) -Exudate Amt None Present -Wound Margin Flat & Intact -Granulation Amt None Present (0 %) -Slough/Fibrin Yes -Necrosis Amt Large (67-100%) -Necrotic Tissue Type Adherent Slough -Structure Exposed N/A -Texture (Choco-wound Skin Appearance) Assessed, Localized Edema -Moisture (Choco-wound Skin Appearance Assessed,Dry/ ) Scaly -Color (Choco-wound Skin Appearance) Assessed -Temperature (Choco-wound Skin No Abnormality Appearance) (Pt Warm) -Tenderness on Palpation (Choco-wound No Skin Appearance) -Ulcer Cleansing Rinsed/ Irrigated with Saline -Foul Odor after Cleansing No -Anesthetic Used 4% Lidocaine Solution [Edema Assessment] -Lower Limb Edema Present Yes -Right Calf (cm) 47 -Right Ankle (cm) 25.7 -Left Calf (cm) 47.2 -Left Ankle (cm) 24.5 WC - Nurse 2 - General Ulcer CM Notes Start: 12/12/19 09:57 Freq: Status: Active Protocol: Activity Type Activity Date Activity User E-Sign Co-Sign Detail Recorded Client Recorded Date Recorded By Document 12/12/19 13:41 PL [id number] 12/12/19 13:45 PL 12/12/19 13:41 Wound Center Nurse 2 [Procedure/Treatment] #3 Right Post Lower leg -Time 10:45 -Correct Patient Yes -Correct Side, Site, Position Yes -Correct Procedure Yes -Procedure Performed Yes -Type of Procedure Debridement -Clinical Debridement Subcutaneous -Tissue Removed Subcutaneous -Post Debridement (cm) - Length 4 -Post Debridement (cm) - Width 2.1 -Post Debridement (cm) - Depth 0.1 -Total Square (Post) (cm) 8.4 -Area of Debridement (cm) - Length 4 -Area of Debridement (cm) - Width 2.1 -Total Square (Area) (cm) 8.4 -Tunneling No -Undermining/Tunneling No -Circular Undermining No -Wound/Ulcer Outcome Not Healed -Ulcer Cleansing Rinsed/ Irrigated with Saline -Foul Odor after Cleansing No -Bioengineered Tissue No -Debridement - Subq, 1st 20sq cm No 2-right medial jenkins -Time 10:45 -Correct Patient Yes -Correct Side, Site, Position Yes -Correct Procedure Yes -Procedure Performed Yes -Type of Procedure Debridement -Clinical Debridement Subcutaneous -Tissue Removed Subcutaneous -Post Debridement (cm) - Length 0.6 -Post Debridement (cm) - Width 0.7 -Post Debridement (cm) - Depth 0.1 -Total Square (Post) (cm) 0.42 -Area of Debridement (cm) - Length 0.6 -Area of Debridement (cm) - Width 0.7 -Total Square (Area) (cm) 0.42 -Tunneling No -Undermining/Tunneling No -Circular Undermining No -Wound/Ulcer Outcome Not Healed -Bioengineered Tissue No -Debridement - Subq, 1st 20sq cm Yes 1-right medial leg -Time 10:45 -Correct Patient Yes -Correct Side, Site, Position Yes -Correct Procedure Yes -Procedure Performed Yes -Type of Procedure Debridement -Clinical Debridement Subcutaneous -Tissue Removed Subcutaneous -Post Debridement (cm) - Length 3.6 -Post Debridement (cm) - Width 2.6 -Post Debridement (cm) - Depth 0.1 -Total Square (Post) (cm) 9.36 -Area of Debridement (cm) - Length 3.6 -Area of Debridement (cm) - Width 2.6 -Total Square (Area) (cm) 9.36 -Tunneling No -Undermining/Tunneling No -Circular Undermining No -Wound/Ulcer Outcome Not Healed -Ulcer Cleansing Rinsed/ Irrigated with Saline -Foul Odor after Cleansing No -Bioengineered Tissue No -Debridement - Subq, 20sq cm No [See Physician Procedure note for Specifics] Pain Scale: 0-10 Numeric [Pain] -Is Patient Pain Free? Yes WC - Nurse 3 - General Ulcer D/C NN Start: 12/12/19 09:57 Freq: Status: Active Protocol: Activity Type Activity Date Activity User E-Sign Co-Sign Detail Recorded Client Recorded Date Recorded By Document 12/12/19 12:01 [email or web address] [id number] 12/12/19 12:04 PAVITHRA 12/12/19 12:01 Wound Care Nurse 3 [Wound Dressing] 2-right medial jenkins -Ulcer Cleansing Rinsed/ Irrigated with Saline -Foul Odor after Cleansing No -Primary Dressing Applied Aquacel AG 4x4 -Primary Dressing Covered/Secured Dry Gauze & with Roll Gauze, Secured with Tape -Aquacel AG 4x4 1 1-right medial leg -Ulcer Cleansing Rinsed/ Irrigated with Saline -Foul Odor after Cleansing No -Primary Dressing Applied Aquacel AG 4x4 -Primary Dressing Covered/Secured Dry Gauze & with Roll Gauze, Secured with Tape -Aquacel AG 4x4 0 [Compression Applied] Right -Tubular Bandage Double Layer -Size of Tubigrip Used Size F -Size F ($) 1 Left -Tubular Bandage Double Layer -Size of Tubigrip Used Size F -Size F ($) 1 -Stockings No Pain Scale: 0-10 Numeric [Pain] -Is Patient Pain Free? Yes WC - Visit Discharge [Visit Discharge Information] -Discharge Condition Stable -Ambulatory Status Ambulatory, Walker -Transportation Private Auto -Accompanied by daughter -Medication Reconcilliation completed Yes & provided to patient/care provider -Clinical Summary of Care Provided Yes Musculoskeletal: Tenderness - On palpation/manipulation of ulcers Psych/Mental Status: Normal Affect, Appropriate Debridement Note Post-Debridement Measurements/Treatment WC - Nurse 2 - General Ulcer CM Notes Start: 12/12/19 09:57 Freq: Status: Active Protocol: Activity Type Activity Date Activity User E-Sign Co-Sign Detail Recorded Client Recorded Date Recorded By Document 12/12/19 13:41 PL [id number] 12/12/19 13:45 PL 12/12/19 13:41 Wound Center Nurse 2 #3 Right Post Lower leg -Time 10:45 -Correct Patient Yes -Correct Side, Site, Position Yes -Correct Procedure Yes -Procedure Performed Yes -Type of Procedure Debridement -Clinical Debridement Subcutaneous -Tissue Removed Subcutaneous -Post Debridement (cm) - Length 4 -Post Debridement (cm) - Width 2.1 -Post Debridement (cm) - Depth 0.1 -Total Square (Post) (cm) 8.4 -Area of Debridement (cm) - Length 4 -Area of Debridement (cm) - Width 2.1 -Total Square (Area) (cm) 8.4 -Tunneling No -Undermining/Tunneling No -Circular Undermining No -Wound/Ulcer Outcome Not Healed -Ulcer Cleansing Rinsed/ Irrigated with Saline -Foul Odor after Cleansing No -Bioengineered Tissue No -Debridement - Subq, 1st 20sq cm No 2-right medial jenkins -Time 10:45 -Correct Patient Yes -Correct Side, Site, Position Yes -Correct Procedure Yes -Procedure Performed Yes -Type of Procedure Debridement -Clinical Debridement Subcutaneous -Tissue Removed Subcutaneous -Post Debridement (cm) - Length 0.6 -Post Debridement (cm) - Width 0.7 -Post Debridement (cm) - Depth 0.1 -Total Square (Post) (cm) 0.42 -Area of Debridement (cm) - Length 0.6 -Area of Debridement (cm) - Width 0.7 -Total Square (Area) (cm) 0.42 -Tunneling No -Undermining/Tunneling No -Circular Undermining No -Wound/Ulcer Outcome Not Healed -Bioengineered Tissue No -Debridement - Subq, 1st 20sq cm Yes 1-right medial leg -Time 10:45 -Correct Patient Yes -Correct Side, Site, Position Yes -Correct Procedure Yes -Procedure Performed Yes -Type of Procedure Debridement -Clinical Debridement Subcutaneous -Tissue Removed Subcutaneous -Post Debridement (cm) - Length 3.6 -Post Debridement (cm) - Width 2.6 -Post Debridement (cm) - Depth 0.1 -Total Square (Post) (cm) 9.36 -Area of Debridement (cm) - Length 3.6 -Area of Debridement (cm) - Width 2.6 -Total Square (Area) (cm) 9.36 -Tunneling No -Undermining/Tunneling No -Circular Undermining No -Wound/Ulcer Outcome Not Healed -Ulcer Cleansing Rinsed/ Irrigated with Saline -Foul Odor after Cleansing No -Bioengineered Tissue No -Debridement - Subq, 1st 20sq cm No Pain Scale: 0-10 Numeric Is Patient Pain Free? Yes WC - Nurse 3 - General Ulcer D/C NN Start: 12/12/19 09:57 Freq: Status: Active Protocol: Activity Type Activity Date Activity User E-Sign Co-Sign Detail Recorded Client Recorded Date Recorded By Document 12/12/19 12:01 [email or web address] [id number] 12/12/19 12:04 PAVITHRA 12/12/19 12:01 Wound Care Nurse 3 2-right medial jenkins -Ulcer Cleansing Rinsed/ Irrigated with Saline -Foul Odor after Cleansing No -Primary Dressing Applied Aquacel AG 4x4 -Primary Dressing Covered/Secured with Dry Gauze & Roll Gauze, Secured with Tape -Aquacel AG 4x4 1 1-right medial leg -Ulcer Cleansing Rinsed/ Irrigated with Saline -Foul Odor after Cleansing No -Primary Dressing Applied Aquacel AG 4x4 -Primary Dressing Covered/Secured with Dry Gauze & Roll Gauze, Secured with Tape -Aquacel AG 4x4 0 Right -Tubular Bandage Double Layer -Size of Tubigrip Used Size F -Size F ($) 1 Left -Tubular Bandage Double Layer -Size of Tubigrip Used Size F -Size F ($) 1 -Stockings No Pain Scale: 0-10 Numeric Is Patient Pain Free? Yes WC - Visit Discharge Discharge Condition Stable Ambulatory Status Ambulatory, Walker Transportation Private Auto Accompanied by daughter Medication Reconcilliation completed & Yes provided to patient/care provider Clinical Summary of Care Provided Yes Wound debrided: Right medial jenkins Laterality: Right Type of Debridement: Excisional debridement Anesthesia Used: 5% Lidocaine Gel Depth: in the subcutaneous layer Percentage of wound debrided: 100 Instrument Used: 3mm curette Tissue Removed: Slough and devitalized tissue Severity: Fat Layer Exposed Amount of bleeding with debridement: Mild Bleeding Controlled with: Pressure Patient tolerated procedure well - Additional Wound Wound debrided: Medial leg Laterality: Right Type of Debridement: Excisional debridement Anesthesia Used: 5% Lidocaine Gel Depth: in the subcutaneous layer Percentage of wound debrided: 100 Instrument Used: 3mm curette Tissue Removed: Slough and devitalized tissue Severity: Fat Layer Exposed Amount of bleeding with debridement: Mild Bleeding Controlled with: Pressure Patient tolerated procedure: Patient tolerated procedure well - Additional Wound Wound debrided: Right posterior lower leg Laterality: Right Type of Debridement: Excisional debridement Anesthesia Used: 5% Lidocaine Gel Depth: in the subcutaneous layer Percentage of wound debrided: 100 Instrument Used: 5mm curette Tissue Removed: Slough and devitalized tissue Severity: Fat Layer Exposed Amount of bleeding with debridement: Mild Bleeding Controlled with: Pressure Patient tolerated procedure: Patient tolerated procedure well Assessment/Plan Active Problems Diabetic ulcer of lower leg (Chronic) Bilateral lower extremity edema (Acute) Type 2 diabetes mellitus (Chronic) Assessment: As above Plan: Debridement performed today in clinic. Aquacel Ag applied to ulcers of right lower extremity. At home wound-care instructions: Change Aquacel Ag dressing daily or more frequently as needed due to contamination. Keep skin clean and dry. Wash choco-ulcer areas with antibacterial soap and water, rinse well and dry thoroughly. Apply new dressing after cleansing. Avoid soaking or submersion of ulcers. Continue topical OTC lotion to bilateral lower extremities for management of dry skin. Compression: Double Tubigrip applied in clinic. Patient was instructed to continue use of double Tubigrip's daily. She may remove these at bedtime. She was instructed to avoid prolonged standing or dangling of legs. When seated, legs should be elevated at or above waist level. Off-loading: [X]. Diet: Patient encouraged to increase protein and vitamin C intake while taking caution to avoid high carbohydrate and/or sugar intake. Labs/cultures/imaging: Cultures ordered and collected today. Recent blood work from 12/05/2019 reviewed; significant findings as listed above. Vascular studies ordered. Follow-up: Return to clinic in 1 week for a nurse visit. Return in 2 weeks for provider visit. Return sooner or report to the emergency room should symptoms worsen, or new symptoms arise. Note: [employer] speech recognition audio visual coordinator software was used to create portions of this document. Sound-alike and misspelled words, as well as other audio visual coordinator errors may be contained in the documentation.
[2019-12-19 13:24] VITALS: BP 135/86; PULSE 90; RESP 18; TEMP 36.8; BMI 49.0
[2019-12-26 08:52] VITALS: BP 167/85; PULSE 101; RESP 16; TEMP 36.1; BMI 49.0
[2019-12-26 09:48] VITALS: BP 152/68; PULSE 86; RESP 16
--- NOTE | 2019-12-26 12:42 | VDLE_ITS ---
Reason For Study: Non healing ulcer RIGHT LEFT CFV is compressible, spontaneous, phasic, CFV is compressible, spontaneous, phasic, competent and demonstrates normal competent, and demonstrates normal augmentation. augmentation. FV is compressible, spontaneous, phasic, FV is compressible, spontaneous, phasic, competent and demonstrates normal competent and demonstrates normal augmentation. augmentation. POP V is compressible, spontaneous, phasic, POP V is compressible, spontaneous, phasic, competent and demonstrates normal competent and demonstrates normal augmentation. augmentation. T/P Trunk is compressible. T/P Trunk is compressible. PTV is compressible. PTV is compressible. RT PerV is compressible. LT PerV is compressible. Nonvascularized structure noted in the right Left SSV is too small to evaluate. popliteal fossa measuring approximently 3.20 x 1.67 cm. Structure noted in the left popliteal space SFJ is competent and measures 0.72 x 0.75 cm. measuring approximently 0.75 x 2.77 x 4.61 GSV proximal thigh measures 0.53 x 0.53 cm. cm. Unable to detect if vascularized due to GSV at knee measures 0.49 x 0.50 cm. artifact caused from parkinsons. GSV is competent throughout. SFJ is competent and measures 0.91 x 0.93 SSV at junction is competent and measures cm. 0.27 x 0.29 cm. GSV proximal thigh measures 0.56 x 0.61 cm. Procedure GSV above knee is competent. Exam performed in department. GSV at knee measures 0.43 x 0.47 cm. A preliminary report was called and/or faxed GSV below knee is INCOMPETENT for greater to WC. than 0.5 seconds. ASV mid thigh is INCOMPETENT for greater than 0.5 seconds and measures 0.60 x 0.58 cm. ASV at knee is INCOMPETENT for greater than 0.5 seconds and measures 0.51 x 0.50 cm. Interpretation Summary Deep veins of the lower extremities are bilaterally patent and compressible segmentally. There is no evidence of deep vein thrombosis on either side. Valvular competence appears intact within the proximal deep venous systems bilaterally. The great saphenous veins appear bilaterally patent and compressible segmentally. Sapheno-femoral junctions are bilaterally competent . The right great saphenous vein appears segmentally competent. The left great saphenous vein appears competent above the knee. The left great saphenous vein appears incompetent below the knee. The right small saphenous vein is patent and competent. The left small saphenous vein is too small to evaluate. An incompetent accessory saphenous vein is noted in the left mid-thigh which is incompetent. An accessory saphenous vein is noted at the level of the left knee which is incompetent. A hypoechoic structure is noted in the popliteal space bilaterally, with dimensions as documented above. These probably represent popliteal cysts. Clinical correlation is advised. Ordering Physician: Jaye Mosqueda Referring Physician: Prateek Cruz Performed By: Patsy Richards RVT
--- NOTE | 2019-12-26 12:42 | ART_ITS ---
Reason For Study: Non-healing wound Procedure A bilateral lower extremity continuous wave Doppler with analog waveform analysis,segmental pressures,and ankle brachial indexes without exercise. Left Segmental Pressures Left brachial= 166mmHg. Left posterior tibial artery = 219mmHg. Left dorsalis pedis artery = 193mmHg. Left digit = >254 mmHg. The left dorsalis pedis waveforms are triphasic. The left posterior tibial artery waveforms are triphasic. Right Segmental Pressures Right brachial= 167mmHg. Right posterior tibial artery = >254mmHg. Right dorsalis pedis artery = >254mmHg. Right digit = >254 mmHg. The right dorsalis pedis waveforms are triphasic. The right posterior tibial artery waveforms are triphasic. Indices The right ankle brachial index by the dorsalis pedis is NC. The right ankle brachial index by the posterior tibial artery is NC. The right digital-brachial index is NC. The left ankle brachial index by the dorsalis pedis is 1.16. The left ankle brachial index by the posterior tibial artery is 1.31. The left digital-brachial index is NC. Interpretation Summary Triphasic Doppler waveforms are noted at ankle level bilaterally. Pulse-volume recordings appear satisfactory at all levels bilaterally, including low-thigh, calf, ankle, and digital levels. The resting right ankle-brachial index could not be determined due to the non-compressibility of the vasculature. The resting left ankle-brachial index is normal. Digital-brachial indices could not be determined on either side due to the non-compressibility of the vasculature at digital level bilaterally. There is evidence of arterial calcification at ankle level on the right, and at digital level bilaterally. There is no evidence of significant arterial occlusive disease in the lower extremities bilaterally. Ordering Physician: Jaye Mosqueda Referring Physician: Prateek Cruz Performed By: Patsy Richards RVT
--- NOTE | 2019-12-26 13:16 | PN.PCM_ITS ---
(1) Diabetic ulcer of lower leg Status: Chronic Current Visit: Yes Code(s): E11.622 - Type 2 diabetes mellitus with other skin ulcer; L97.909 - Non-pressure chronic ulcer of unspecified part of unspecified lower leg with unspecified severity (2) Bilateral lower extremity edema Status: Chronic Current Visit: Yes Code(s): R60.0 - Localized edema (3) Type 2 diabetes mellitus Status: Chronic Current Visit: Yes Code(s): E11.9 - Type 2 diabetes mellitus without complications (4) Hyperlipidemia Status: Chronic Current Visit: No Code(s): E78.5 - Hyperlipidemia, unspecified (5) Hypertension Status: Chronic Current Visit: No Code(s): I10 - Essential (primary) hypertension Type of Wound Date of Service: 12/26/19 Chief Complaint: Right lower leg ulcers History of Wound: The patient presented to the wound healing center on 12/12/2019 for evaluation of ulcers of her right lower extremity. She presented with her daughter. She has a past medical history significant for Parkinson's disease, type 2 diabetes mellitus, hypertension and hyperlipidemia. She has chronic lower extremity edema. A few months ago, the patient began developing small ulcerations of her right lower extremity. She also had an increase in lower extremity swelling at that time, as well as weeping edema and warmth and erythema of bilateral lower extremities. She was seen by her primary care doctor and recently completed a 7-day course of doxycycline for cellulitis. Her daughter states that the erythema and warmth in the patient's lower extremities significantly improved with doxycycline. The patient was not using wound dressings at home. She applies aloe lotion to bilateral lower extremities for moisturization. She was not using compression at home. The patient denied any fever, chills, nausea, vomiting, or diarrhea. She denied any signs of infection, including increasing pain, redness, swelling, or purulent/foul- smelling drainage from affected area. Labs from 12/05/2019 were significant for WBC 11.7, platelets 487, ESR 85, glucose 233, hemoglobin A1c 10.6%, alk phos 131. She had not had any recent vascular studies. Cultures collected 12/12/2019 were positive for rare staph aureus; anaerobic cultures were negative. After clinical correlation, patient was placed on a second round of doxycycline x10 days. She has vascular studies scheduled for this afternoon. Progress of Wound: Patient's daughter is accompanying her today. They have been compliant with Aquacel Ag dressing changes. The patient denies any fever, chills, nausea, vomiting, or diarrhea. Denies any signs of infection, including increasing pain, redness, swelling, or drainage from affected area. Patient was unable to tolerate double Tubigrip's and single Tubigrip's, so she has been using Manas wraps for compression and tolerating these well. Right medial leg ulcer is healed today (12/26/2019). - Physical Exam Vital Signs Temp Pulse Resp BP 96.9 F L 86 16 152/68 H 12/26/19 08:52 12/26/19 09:48 12/26/19 09:48 12/26/19 09:48 General: Alert, Oriented x3, Cooperative, No apparent distress HEENT: Atraumatic, Normocephalic Oral: Moist Mucosa Lungs: Normal air movement Cardiovascular: Regular Rhythm Abdomen: Bowel Sounds Present, Soft, Non-Distended Extremities: No clubbing, No cyanosis, Capillary Refill Less than 3 Seconds, Diminished Peripheral Pulses, Edema Skin: Ulcer/ Wound - Ulcers of right lower extremity with subcutaneous tissue exposed. Moderate amount of slough and devitalized tissue present. There is no tunneling, undermining, or probing to bone. There is no jeane-ulcer erythema or warmth. No purulent or foul-smelling drainage. There are new ulcers present on the left lower extremity with subcutaneous tissue exposed. Moderate amount of s preethi and devitalized tissue present. There is no tunneling, undermining, or probing to bone. There is moderate jeane-ulcer erythema and warmth. There is no purulent or foul-smelling drainage. Wound Measurements and Assessment WC - Nurse 1 - General Ulcer Measurement Start: 12/12/19 09:57 Freq: Status: Active Protocol: Activity Type Activity Date Activity User E-Sign Co-Sign Detail Recorded Client Recorded Date Recorded By Document 12/26/19 08:52 [facility] [id number] 12/26/19 08:58 [facility] 12/26/19 08:52 Wound Center Nurse 1 [Ulcer Assessment] #3 Right Post Lower leg -Combined with other wound No -Current Size (cm) - Length 0.1 -Current Size (cm) - Width 0.1 -Current Size (cm) - Depth 0.1 -Total Square Cm 0.01 -Epithelialization Large 67-100% -Tunneling No -Undermining/Tunneling No -Circular Undermining No -Texture (Jeane-wound Skin Appearance) Assessed -Moisture (Jeane-wound Skin Appearance Assessed,Dry/ ) Scaly -Color (Jeane-wound Skin Appearance) Assessed -Temperature (Jeane-wound Skin No Abnormality Appearance) (Pt Warm) -Tenderness on Palpation (Jeane-wound No Skin Appearance) -Ulcer Cleansing soapy water -Foul Odor after Cleansing No -Anesthetic Used 4% Lidocaine Solution 2-right medial jenkins -Combined with other wound No -Current Size (cm) - Length 4.3 -Current Size (cm) - Width 2.3 -Current Size (cm) - Depth 0.1 -Total Square Cm 9.89 -Photo Taken No -Epithelialization None Present -Tunneling No -Undermining/Tunneling No -Circular Undermining No -Exudate Amt Medium -Exudate Type Serosanguineous -Wound Margin Distinct, Outline Attached -Granulation Amt Large (67-100%) -Granulation Quality Red -Slough/Fibrin Yes -Necrosis Amt Small (1-33%) -Necrotic Tissue Type Adherent Slough -Texture (Jeane-wound Skin Appearance) Assessed, Scarring -Moisture (Jeane-wound Skin Appearance Assessed,Dry/ ) Scaly -Color (Jeane-wound Skin Appearance) Assessed, Erythema -Temperature (Jeane-wound Skin No Abnormality Appearance) (Pt Warm) -Tenderness on Palpation (Jeane-wound No Skin Appearance) -Ulcer Cleansing soapy water -Foul Odor after Cleansing No -Anesthetic Used 4% Lidocaine Solution 1-right medial leg -Combined with other wound No -Current Size (cm) - Length 0.1 -Current Size (cm) - Width 0.1 -Current Size (cm) - Depth 0.1 -Total Square Cm 0.01 -Photo Taken No -Epithelialization Large 67-100% -Texture (Jeane-wound Skin Appearance) Assessed -Moisture (Jeane-wound Skin Appearance Assessed,Dry/ ) Scaly -Color (Jeane-wound Skin Appearance) Assessed -Temperature (Jeane-wound Skin No Abnormality Appearance) (Pt Warm) -Tenderness on Palpation (Jeane-wound No Skin Appearance) -Ulcer Cleansing soapy water [Edema Assessment] -Lower Limb Edema Present Yes -Right Calf (cm) 43 -Right Ankle (cm) 24.6 -Left Calf (cm) 45.9 -Left Ankle (cm) 22.6 WC - Nurse 2 - General Ulcer CM Notes Start: 12/12/19 09:57 Freq: Status: Active Protocol: Activity Type Activity Date Activity User E-Sign Co-Sign Detail Recorded Client Recorded Date Recorded By Document 12/26/19 11:00 PL [id number] 12/26/19 11:06 PL 12/26/19 11:00 Wound Center Nurse 2 [Procedure/Treatment] #3 Right Post Lower leg -Time 09:26 -Correct Patient Yes -Correct Side, Site, Position Yes -Correct Procedure Yes -Procedure Performed Yes -Type of Procedure Debridement -Clinical Debridement Subcutaneous -Tissue Removed Subcutaneous -Post Debridement (cm) - Length 0.3 -Post Debridement (cm) - Width 0.4 -Post Debridement (cm) - Depth 0.1 -Total Square (Post) (cm) 0.12 -Area of Debridement (cm) - Length 0.3 -Area of Debridement (cm) - Width 0.4 -Total Square (Area) (cm) 0.12 -Tunneling No -Undermining/Tunneling No -Circular Undermining No -Wound/Ulcer Outcome Not Healed -Bioengineered Tissue No -Debridement - Subq, 1st 20sq cm Yes 2-right medial jenkins -Time 09:26 -Correct Patient Yes -Correct Side, Site, Position Yes -Correct Procedure Yes -Procedure Performed Yes -Type of Procedure Debridement -Clinical Debridement Subcutaneous -Tissue Removed Subcutaneous -Post Debridement (cm) - Length 3.9 -Post Debridement (cm) - Width 3.5 -Post Debridement (cm) - Depth 0.1 -Total Square (Post) (cm) 13.65 -Area of Debridement (cm) - Length 3.9 -Area of Debridement (cm) - Width 3.5 -Total Square (Area) (cm) 13.65 -Tunneling No -Undermining/Tunneling No -Circular Undermining No -Wound/Ulcer Outcome Not Healed -Ulcer Cleansing Rinsed/ Irrigated with Saline -Foul Odor after Cleansing No -Bioengineered Tissue No -Debridement - Subq, 1st 20sq cm No 1-right medial leg -Wound/Ulcer Outcome Healed- Epithelialized [See Physician Procedure note for Specifics] Pain Scale: 0-10 Numeric [Pain] -Is Patient Pain Free? Yes - Nurse 3 - General Ulcer D/C NN Start: 12/12/19 09:57 Freq: Status: Active Protocol: Activity Type Activity Date Activity User E-Sign Co-Sign Detail Recorded Client Recorded Date Recorded By Document 12/26/19 09:48 [facility] [id number] 12/26/19 09:49 [facility] 12/26/19 09:48 Wound Care Nurse 3 [Wound Dressing] #3 Right Post Lower leg -Primary Dressing Covered/Secured Dry Gauze & with Roll Gauze, Secured with Tape -Other Covering vascular studies following appt 2-right medial jenkins -Primary Dressing Covered/Secured Dry Gauze & with Roll Gauze, Secured with Tape -Other Covering pt has vascular studies following appt 1-right medial leg -Primary Dressing Covered/Secured Dry Gauze & with Roll Gauze, Other -Other Covering vascular studies following appt [Compression Applied] Right -Compression Wrap Manas Wrap Left -Compression Wrap Manas Wrap [Post Procedure Tolerated] -Treatment Response Procedure Tolerated Well Vital Signs [Pulse] -Pulse Rate (60-100) 86 -Pulse Location Monitor [Respirations] -Respiratory Rate (12-18) 16 -Respiratory rate source Observation -Oxygen Delivery Method Room Air [Blood Pressure] -Blood Pressure (90/60-120/80) 152/68 H -Blood Pressure Mean (mm Hg) 96 -Source Monitor -Position Supine -Blood Pressure Location Right Arm Pain Scale: 0-10 Numeric [Pain] -Is Patient Pain Free? Yes - Visit Discharge [Visit Discharge Information] -Discharge Condition Stable -Ambulatory Status Ambulatory, Walker -Transportation Private Auto -Accompanied by fernando Musculoskeletal: Tenderness - On palpation/manipulation of wounds. Psych/Mental Status: Normal Affect, Appropriate Debridement Note Post-Debridement Measurements/Treatment WC - Nurse 2 - General Ulcer CM Notes Start: 12/12/19 09:57 Freq: Status: Active Protocol: Activity Type Activity Date Activity User E-Sign Co-Sign Detail Recorded Client Recorded Date Recorded By Document 12/12/19 13:41 PL [id number] 12/12/19 13:45 PL Document 12/26/19 11:00 PL [id number] 12/26/19 11:06 PL 12/12/19 12/26/19 13:41 11:00 Wound Center Nurse 2 #3 Right Post Lower leg -Time 10:45 09:26 -Correct Patient Yes Yes -Correct Side, Site, Position Yes Yes -Correct Procedure Yes Yes -Procedure Performed Yes Yes -Type of Procedure Debridement Debridement -Clinical Debridement Subcutaneous Subcutaneous -Tissue Removed Subcutaneous Subcutaneous -Post Debridement (cm) - Length 4 0.3 -Post Debridement (cm) - Width 2.1 0.4 -Post Debridement (cm) - Depth 0.1 0.1 -Total Square (Post) (cm) 8.4 0.12 -Area of Debridement (cm) - Length 4 0.3 -Area of Debridement (cm) - Width 2.1 0.4 -Total Square (Area) (cm) 8.4 0.12 -Tunneling No No -Undermining/Tunneling No No -Circular Undermining No No -Wound/Ulcer Outcome Not Healed Not Healed -Ulcer Cleansing Rinsed/ Irrigated with Saline -Foul Odor after Cleansing No -Bioengineered Tissue No No -Debridement - Subq, 1st 20sq cm No Yes 2-right medial jenkins -Time 10:45 09:26 -Correct Patient Yes Yes -Correct Side, Site, Position Yes Yes -Correct Procedure Yes Yes -Procedure Performed Yes Yes -Type of Procedure Debridement Debridement -Clinical Debridement Subcutaneous Subcutaneous -Tissue Removed Subcutaneous Subcutaneous -Post Debridement (cm) - Length 0.6 3.9 -Post Debridement (cm) - Width 0.7 3.5 -Post Debridement (cm) - Depth 0.1 0.1 -Total Square (Post) (cm) 0.42 13.65 -Area of Debridement (cm) - Length 0.6 3.9 -Area of Debridement (cm) - Width 0.7 3.5 -Total Square (Area) (cm) 0.42 13.65 -Tunneling No No -Undermining/Tunneling No No -Circular Undermining No No -Wound/Ulcer Outcome Not Healed Not Healed -Ulcer Cleansing Rinsed/ Irrigated with Saline -Foul Odor after Cleansing No -Bioengineered Tissue No No -Debridement - Subq, 1st 20sq cm Yes No 1-right medial leg -Time 10:45 -Correct Patient Yes -Correct Side, Site, Position Yes -Correct Procedure Yes -Procedure Performed Yes -Type of Procedure Debridement -Clinical Debridement Subcutaneous -Tissue Removed Subcutaneous -Post Debridement (cm) - Length 3.6 -Post Debridement (cm) - Width 2.6 -Post Debridement (cm) - Depth 0.1 -Total Square (Post) (cm) 9.36 -Area of Debridement (cm) - Length 3.6 -Area of Debridement (cm) - Width 2.6 -Total Square (Area) (cm) 9.36 -Tunneling No -Undermining/Tunneling No -Circular Undermining No -Wound/Ulcer Outcome Not Healed Healed- Epithelialized -Ulcer Cleansing Rinsed/ Irrigated with Saline -Foul Odor after Cleansing No -Bioengineered Tissue No -Debridement - Subq, 1st 20sq cm No Pain Scale: 0-10 Numeric Is Patient Pain Free? Yes Yes WC - Nurse 3 - General Ulcer D/C NN Start: 12/12/19 09:57 Freq: Status: Active Protocol: Activity Type Activity Date Activity User E-Sign Co-Sign Detail Recorded Client Recorded Date Recorded By Document 12/12/19 12:01 [id number] 12/12/19 12:04 JF Document 12/19/19 13:26 RB [id number] 12/19/19 13:27 RB Document 12/26/19 09:48 [facility] [id number] 12/26/19 09:49 BMF 12/12/19 12/19/19 12/26/19 12:01 13:26 09:48 Wound Care Nurse 3 #3 Right Post Lower leg -Ulcer Cleansing Wound Cleanser -Primary Dressing Applied Aquacel AG 4x4 -Primary Dressing Covered/Secured with Dry Gauze,Dry Dry Gauze & Gauze & Roll Roll Gauze, Gauze,Secured Secured with with Tape Tape -Other Covering vascular studies following appt -Aquacel AG 4x4 1 2-right medial jenkins -Ulcer Cleansing Rinsed/ Irrigated with Saline -Foul Odor after Cleansing No -Primary Dressing Applied Aquacel AG 4x4 -Other Dressing aquacel ag -Primary Dressing Covered/Secured with Dry Gauze & Dry Gauze,Dry Dry Gauze & Roll Gauze, Gauze & Roll Roll Gauze, Secured with Gauze,Secured Secured with Tape with Tape Tape -Other Covering pt has vascular studies following appt -Aquacel AG 4x4 1 1-right medial leg -Ulcer Cleansing Rinsed/ Irrigated with Saline -Foul Odor after Cleansing No -Primary Dressing Applied Aquacel AG 4x4 -Other Dressing aquacel ag -Primary Dressing Covered/Secured with Dry Gauze & Dry Gauze,Dry Dry Gauze & Roll Gauze, Gauze & Roll Roll Gauze, Secured with Gauze,Secured Other Tape with Tape -Other Covering vascular studies following appt -Aquacel AG 4x4 0 Right -Compression Wrap Manas Wrap -Tubular Bandage Double Layer -Size of Tubigrip Used Size F -Size F ($) 1 -Other manas Left -Compression Wrap Manas Wrap -Tubular Bandage Double Layer -Size of Tubigrip Used Size F -Size F ($) 1 -Stockings No -Other manas Treatment Response Procedure Procedure Tolerated Well Tolerated Well Pain Scale: 0-10 Numeric Is Patient Pain Free? Yes Yes Yes Vital Signs Pulse Rate (60-100) 86 Pulse Location Monitor Respiratory Rate (12-18) 16 Respiratory rate source Observation Oxygen Delivery Method Room Air Blood Pressure (90/60-120/80) 152/68 H Blood Pressure Mean (mm Hg) 96 Source Monitor Position Supine Blood Pressure Location Right Arm Teaching: Wound Center Dressing Your Wound -Person Taught Patient,Family -Teaching Method Discussion, Demonstration -Response to teaching Verbalize understanding WC - Visit Discharge Discharge Condition Stable Stable Stable Ambulatory Status Ambulatory, Ambulatory, Ambulatory, Walker Walker Walker Transportation Private Auto Private Auto Private Auto Accompanied by daughter fernando Medication Reconcilliation completed & Yes No provided to patient/care provider Clinical Summary of Care Provided Yes Yes Wound debrided: Right posterior lower leg Laterality: Right Type of Debridement: Excisional debridement Anesthesia Used: 5% Lidocaine Gel Depth: in the subcutaneous layer Percentage of wound debrided: 100 Instrument Used: 3mm curette Tissue Removed: Slough and devitalized tissue Severity: Fat Layer Exposed Amount of bleeding with debridement: Mild Bleeding Controlled with: Pressure Patient tolerated procedure well - Additional Wound Wound debrided: Right medial jenkins Laterality: Right Type of Debridement: Excisional debridement Anesthesia Used: 5% Lidocaine Gel Depth: in the subcutaneous layer Percentage of wound debrided: 100 Instrument Used: 5mm curette Tissue Removed: Slough and devitalized tissue Severity: Fat Layer Exposed Amount of bleeding with debridement: Mild Bleeding Controlled with: Pressure Patient tolerated procedure: Patient tolerated procedure well - Additional Wound Wound debrided: Left jenkins Laterality: Left Type of Debridement: Excisional debridement Anesthesia Used: 5% Lidocaine Gel Depth: in the subcutaneous layer Percentage of wound debrided: 100 Instrument Used: 3mm curette Tissue Removed: Slough and devitalized tissue Severity: Fat Layer Exposed Amount of bleeding with debridement: Mild Bleeding Controlled with: Pressure Patient tolerated procedure: Patient tolerated procedure well - Additional Wound Wound debrided: Left lower leg cluster Laterality: Left Type of Debridement: Excisional debridement Anesthesia Used: 5% Lidocaine Gel Depth: in the subcutaneous layer Percentage of wound debrided: 100 Instrument Used: 5mm curette Tissue Removed: Slough and devitalized tissue Severity: Fat Layer Exposed Amount of bleeding with debridement: Mild Bleeding Controlled with: Pressure Patient tolerated procedure: Patient tolerated procedure well Assessment/Plan Active Problems Diabetic ulcer of lower leg (Chronic) Bilateral lower extremity edema (Chronic) Type 2 diabetes mellitus (Chronic) Assessment: As above Plan: Debridement performed today in clinic. Aquacel Ag applied to ulcers of right and left lower remedies. Given the duration of the wound and failure of the wound to respond to standard wound care, we will apply for advanced skin substitutes: Puraply and Apligraf. At home wound-care instructions: Change Aquacel Ag dressing daily or more frequently as needed due to contamination. Keep skin clean and dry. Wash jeane-ulcer areas with antibacterial soap and water, rinse well and dry thoroughly. Apply new dressing after cleansing. Avoid soaking or submersion of ulcers. Continue topical OTC lotion to bilateral lower extremities for management of dry skin. Compression: Manas wraps applied in clinic. Patient was instructed to continue use of Manas wraps daily. She may remove these at bedtime. She was instructed to avoid prolonged standing or dangling of legs. When seated, legs should be elevated at or above waist level. Diet: Patient encouraged to increase protein and vitamin C intake while taking caution to avoid high carbohydrate and/or sugar intake. Labs/cultures/imaging: Cultures collected 12/12/2019 were positive for rare staph aureus. After clinical correlation, I will start patient on another 10-day course of doxycycline for cellulitis. Recent blood work from 12/05/2019 reviewed; significant findings as listed above. Vascular studies are scheduled for this afternoon. Follow-up: Return to clinic in 1 week for reevaluation. Return sooner or report to the emergency room should symptoms worsen, or new symptoms arise. Note: Entitle speech recognition returned goods sorter software was used to create portions of this document. Sound-alike and misspelled words, as well as other returned goods sorter errors may be contained in the documentation. [id number]: [id number] Chrai subq tissue 20 sq cm/<
== END 2019-12-31 23:59 ==
LOC: CVS 13:00
PROVIDERS: PCP Family Medicine; Referring Provider Family Medicine; Visit Provider Nurse Practitioner Family
DX: E11.622 Type 2 diabetes mellitus with other skin ulcer (principal); E78.5 Hyperlipidemia, unspecified; R60.0 Localized edema; I10 Essential (primary) hypertension; G20 Parkinson's disease; Z79.899 Other long term (current) drug therapy; Z79.82 Long term (current) use of aspirin; Z79.84 Long term (current) use of oral hypoglycemic drugs; L97.812 Non-pressure chronic ulcer of other part of right lower leg with fat layer exposed; M79.89 Other specified soft tissue disorders; E11.51 Type 2 diabetes mellitus with diabetic peripheral angiopathy without gangrene; I83.018 Varicose veins of right lower extremity with ulcer other part of lower leg
CPT/HCPCS: 11042; 87070; 87075; 87077; 87186; 87205; 93923; 93970; 99212; 99213; G0463

== ENCOUNTER 2020-01-16 13:00 | Outpatient (RCR) | payer MEDICARE, SELFPAY ==
[2020-01-01 00:42] VITALS: BP 152/68; PULSE 86; RESP 16; TEMP 36.1
[2020-01-02 09:01] VITALS: RESP 22; TEMP 35.8
--- NOTE | 2020-01-02 12:32 | PCM.WC.PN ---
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 Current Visit: Yes Code(s): E11.622 - Type 2 diabetes mellitus with other skin ulcer; L97.919 - Non-pressure chronic ulcer of unspecified part of right lower leg with unspecified severity (2) Diabetic ulcer of left lower leg Status: Chronic Current Visit: Yes Code(s): E11.622 - Type 2 diabetes mellitus with other skin ulcer; L97.929 - Non-pressure chronic ulcer of unspecified part of left lower leg with unspecified severity (3) Venous insufficiency of left lower extremity Status: Chronic Current Visit: Yes Code(s): I87.2 - Venous insufficiency (chronic) (peripheral) (4) Bilateral lower extremity edema Status: Chronic Current Visit: Yes Code(s): R60.0 - Localized edema (5) Type 2 diabetes mellitus Status: Chronic Current Visit: Yes Code(s): E11.9 - Type 2 diabetes mellitus without complications (6) Hyperlipidemia Status: Chronic Current Visit: No Code(s): E78.5 - Hyperlipidemia, unspecified (7) Hypertension Status: Chronic Current Visit: No Code(s): I10 - Essential (primary) hypertension Type of Wound Date of Service: 01/02/20 Chief Complaint: Right lower leg ulcers History of Wound: The patient presented to the wound healing center on 12/12/2019 for evaluation of ulcers of her right lower extremity. She presented with her daughter. She has a past medical history significant for Parkinson's disease, type 2 diabetes mellitus, hypertension and hyperlipidemia. She has chronic lower extremity edema. A few months prior, the patient began developing small ulcerations of her right lower extremity. She also had an increase in lower extremity swelling at that time, as well as weeping edema and warmth and erythema of bilateral lower extremities. She was seen by her primary care doctor and completed a 7-day course of doxycycline for cellulitis. Her daughter stated that the erythema and warmth in the patient's lower extremities significantly improved with doxycycline. The patient was not using wound dressings at home. She applies aloe lotion to bilateral lower extremities for moisturization. She was not using compression at home. The patient denied any fever, chills, nausea, vomiting, or diarrhea. She denied any signs of infection, including increasing pain, redness, swelling, or purulent/foul-smelling drainage from affected area. Labs from 12/05/2019 were significant for WBC 11.7, platelets 487, ESR 85, glucose 233, hemoglobin A1c 10.6%, alk phos 131. She had not had any recent vascular studies. Cultures collected 12/12/2019 were positive for rare staph aureus; anaerobic cultures were negative. After clinical correlation, patient was placed on a second round of doxycycline x10 days. Venous studies completed on 12/26/2019 demonstrated venous insufficiency of the left lower extremity (left GSV below the knee incompetent, left ASV mid thigh incompetent, left ASV at knee incompetent). ABIs from 12/26/2019 showed following: Triphasic doppler waveforms at ankle level bilaterally. Pulse-volume recordings satisfactory at all levels bilaterally, including low-thigh, calf, ankle, and digital levels. The. resting right HOLLEY could not be determined due to the non-compressibility of the vasculature. The resting left HOLLEY is normal. Digital-brachial indices could not be determined on either side due to the non-compressibility of the vasculature at digital level bilaterally. There is evidence of arterial calcification at ankle level on the right, and at digital level. bilaterally. There is no evidence of significant arterial occlusive disease in the lower extremities bilaterally. Progress of Wound: Patient's daughter is accompanying her today. They have been compliant with [place] dressing changes. Patient's wounds have improved in size and appearance. Her lower extremity erythema and swelling have improved with continuation of doxycycline. The patient is currently still taking her antibiotics. The patient denies any fever, chills, nausea, vomiting, or diarrhea. Denies any signs of infection, including increasing pain, redness, swelling, or purulent/malodorous drainage from affected area. Patient was unable to tolerate double Tubigrip's and single Tubigrip's, so she has been using Manas wraps for compression and tolerating these well. Right medial leg ulcer remains healed. She continues to have dryness and irritation of bilateral lower extremities. - Physical Exam Vital Signs Temp Pulse Resp BP 96.5 F L 86 22 H 152/68 H 01/02/20 09:01 01/01/20 00:42 01/02/20 09:01 01/01/20 00:42 General: Alert, Cooperative, No apparent distress HEENT: Atraumatic, Normocephalic Oral: Moist Mucosa Neck: Supple, Trachea Midline Lungs: Normal air movement Cardiovascular: Regular rate Extremities: No clubbing, No cyanosis, Capillary Refill Less than 3 Seconds, Diminished Peripheral Pulses, Edema - Trace pitting edema bilateral lower extremities Skin: Ulcer/ Wound - Ulcer of right lower extremity with subcutaneous tissue exposed. No tunneling, undermining, or probing to bone. Small amount of slough in devitalized tissue present. There is no choco-ulcer erythema or warmth. No purulent or malodorous drainage. Left lower extremity ulcer cluster with subcutaneous layer exposed. There is no tunneling, undermining, or probing to bone. There is a scant amount of slough and devitalized tissue present. There is trace choco-ulcer erythema and warmth. There is no purulent or malodorous drainage., Excoriated - Skin of bilateral lower extremities is dry, irritated and excoriated. Wound Measurements and Assessment WC - Nurse 1 - General Ulcer Measurement Start: 01/02/20 09:01 Freq: Status: Active Protocol: Activity Type Activity Date Activity User E-Sign Co-Sign Detail Recorded Client Recorded Date Recorded By Document 01/02/20 09:01 DL [id number] 01/02/20 09:14 DL 01/02/20 09:01 Wound Center Nurse 1 [Ulcer Assessment] #3 Right Post Lower leg -Current Size (cm) - Length 0.1 -Current Size (cm) - Width 0.1 -Current Size (cm) - Depth 0.1 -Total Square Cm 0.01 -Photo Taken No -Exudate Amt None Present -Wound Margin Flat & Intact -Granulation Amt Large (67-100%) -Granulation Quality [place] -Necrosis Amt None Present (0 %) -Structure Exposed N/A -Texture (Choco-wound Skin Appearance) No Abnormality -Moisture (Choco-wound Skin Appearance Dry/Scaly ) -Color (Choco-wound Skin Appearance) Hemosiderin Staining -Temperature (Choco-wound Skin No Abnormality Appearance) (Pt Warm) -Tenderness on Palpation (Choco-wound No Skin Appearance) -Ulcer Cleansing Wound Cleanser -Foul Odor after Cleansing No 2-right medial jenkins -Current Size (cm) - Length 0.1 -Current Size (cm) - Width 0.1 -Current Size (cm) - Depth 0.1 -Total Square Cm 0.01 -Photo Taken No -Exudate Amt None Present -Wound Margin Flat & Intact -Granulation Amt Large (67-100%) -Granulation Quality [place] -Necrosis Amt None Present (0 %) -Structure Exposed N/A -Texture (Choco-wound Skin Appearance) No Abnormality -Moisture (Choco-wound Skin Appearance Dry/Scaly ) -Color (Choco-wound Skin Appearance) Hemosiderin Staining -Temperature (Choco-wound Skin No Abnormality Appearance) (Pt Warm) -Tenderness on Palpation (Choco-wound No Skin Appearance) -Ulcer Cleansing Wound Cleanser -Foul Odor after Cleansing No -Anesthetic Used 4% Lidocaine Solution 1-right medial leg -Current Size (cm) - Length 1.6 -Current Size (cm) - Width 0.5 -Current Size (cm) - Depth 0.1 -Total Square Cm 0.80 -Photo Taken No -Exudate Amt Small -Exudate Type Serosanguineous -Wound Margin Distinct, Outline Attached -Granulation Amt Large (67-100%) -Granulation Quality [place] -Necrosis Amt Small (1-33%) -Necrotic Tissue Type Adherent Slough -Structure Exposed N/A -Texture (Choco-wound Skin Appearance) Scarring -Moisture (Choco-wound Skin Appearance Dry/Scaly ) -Color (Choco-wound Skin Appearance) Hemosiderin Staining -Temperature (Choco-wound Skin No Abnormality Appearance) (Pt Warm) -Tenderness on Palpation (Choco-wound No Skin Appearance) -Ulcer Cleansing Wound Cleanser -Foul Odor after Cleansing No -Anesthetic Used 4% Lidocaine Solution WC - Nurse 3 - General Ulcer D/C NN Start: 01/02/20 09:01 Freq: Status: Active Protocol: Activity Type Activity Date Activity User E-Sign Co-Sign Detail Recorded Client Recorded Date Recorded By Document 01/02/20 10:48 DL [id number] 01/02/20 10:53 DL 01/02/20 10:48 Wound Care Nurse 3 [Wound Dressing] #3 Right Post Lower leg -Foul Odor after Cleansing No -Other Dressing Puraply/veil/ steri strips -Other Covering unna boot 2-right medial jenkins -Foul Odor after Cleansing No -Other Dressing puraply/veil/ strie strips -Other Covering unna boot 1-right medial leg -Foul Odor after Cleansing No -Other Dressing Puraply/veil/ steri strips -Other Covering unna boot [Compression Applied] Left -Other unna boot Right -Multi-Layered Wrap Application Unna Boot - Right ($) [Post Procedure Tolerated] -Treatment Response Procedure Tolerated Well Pain Scale: 0-10 Numeric [Pain] -Is Patient Pain Free? Yes - Visit Discharge [Visit Discharge Information] -Discharge Condition Stable -Ambulatory Status Ambulatory, Walker -Transportation Private Auto Musculoskeletal: Tenderness - Palpation/manipulation of ulcers Psych/Mental Status: Normal Affect, Appropriate Debridement Note Post-Debridement Measurements/Treatment - Nurse 3 - General Ulcer D/C NN Start: 01/02/20 09:01 Freq: Status: Active Protocol: Activity Type Activity Date Activity User E-Sign Co-Sign Detail Recorded Client Recorded Date Recorded By Document 01/02/20 10:48 DL [id number] 01/02/20 10:53 DL 01/02/20 10:48 Wound Care Nurse 3 #3 Right Post Lower leg -Foul Odor after Cleansing No -Other Dressing Puraply/veil/ steri strips -Other Covering unna boot 2-right medial jenkins -Foul Odor after Cleansing No -Other Dressing puraply/veil/ strie strips -Other Covering unna boot 1-right medial leg -Foul Odor after Cleansing No -Other Dressing Puraply/veil/ steri strips -Other Covering unna boot Left -Other unna boot Right -Multi-Layered Wrap Application Unna Boot - Right ($) Treatment Response Procedure Tolerated Well Pain Scale: 0-10 Numeric Is Patient Pain Free? Yes - Visit Discharge Discharge Condition Stable Ambulatory Status Ambulatory, Walker Transportation Private Auto Wound debrided: Right medial jenkins Laterality: Right Type of Debridement: Excisional debridement Anesthesia Used: 5% Lidocaine Gel Depth: in the subcutaneous layer Percentage of wound debrided: 100 Instrument Used: 5mm curette Tissue Removed: Slough and devitalized tissue Severity: Fat Layer Exposed Amount of bleeding with debridement: Mild Bleeding Controlled with: Pressure Patient tolerated procedure well - Additional Wound Wound debrided: Left jenkins Laterality: Left Type of Debridement: Excisional debridement Anesthesia Used: 5% Lidocaine Gel Depth: in the subcutaneous layer Percentage of wound debrided: 100 Instrument Used: 5mm curette Tissue Removed: Slough and devitalized tissue Severity: Fat Layer Exposed Amount of bleeding with debridement: Mild Bleeding Controlled with: Pressure Patient tolerated procedure: Patient tolerated procedure well Assessment/Plan Active Problems Bilateral lower extremity edema (Chronic) Venous insufficiency of left lower extremity (Chronic) Diabetic ulcer of right lower leg (Chronic) Diabetic ulcer of left lower leg (Chronic) Type 2 diabetes mellitus (Chronic) Assessment: As above Plan: Debridement performed today in clinic. The patient was approved for Puraply, Nushield, and Apligraf. PuraPly #1 applied to ulcers of right and left lower extremities, covered with Adaptic touch. Unna boots applied today in clinic for dry, excoriated and irritated skin of bilateral lower extremities. At home wound-care instructions: Keep Unna boots clean and dry. Contact the wound healing center if Unna boots are not well tolerated or if patient develops symptoms such as pain, numbness, or tingling of the feet/toes or discoloration of the feet/toes. If this occurs, the Unna boots will need to be removed. Compression: Unna boots applied today in the clinic. Continue to avoid prolonged standing or dangling of legs. When seated, legs should be elevated at or above waist level. Diet: Patient encouraged to increase protein and vitamin C intake while taking caution to avoid high carbohydrate and/or sugar intake. Labs/cultures/imaging: Cultures collected 12/12/2019 were positive for rare staph aureus. After clinical correlation, patient was started on another 10-day course of doxycycline for cellulitis, which she is currently taking and tolerating well. Recent blood work from 12/05/2019 reviewed; significant findings as listed above. Vascular studies were reviewed; significant findings listed above. Follow-up: Return to the clinic Sunday for a nurse visit for assessment of tolerance of Unna boots and reapplication of Unna boots. Return to the clinic on Sunday for a provider evaluation. Return sooner or report to the emergency room should symptoms worsen, or new symptoms arise. Note: [employer] speech recognition spa manager/esthetician software was used to create portions of this document. Sound-alike and misspelled words, as well as other spa manager/esthetician errors may be contained in the documentation. [id number]: [id number] Skin sub graft trnk/arm/leg
[2020-01-09 08:54] VITALS: BP 158/86; PULSE 91; RESP 18; TEMP 36.2; BMI 49.0
--- NOTE | 2020-01-09 13:26 | PN.PCM_ITS ---
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 Current Visit: Yes Code(s): E11.622 - Type 2 diabetes mellitus with other skin ulcer; L97.919 - Non-pressure chronic ulcer of unspecified part of right lower leg with unspecified severity (2) Diabetic ulcer of left lower leg Status: Chronic Current Visit: Yes Code(s): E11.622 - Type 2 diabetes mellitus with other skin ulcer; L97.929 - Non-pressure chronic ulcer of unspecified part of left lower leg with unspecified severity (3) Venous insufficiency of left lower extremity Status: Chronic Current Visit: Yes Code(s): I87.2 - Venous insufficiency (chronic) (peripheral) (4) Bilateral lower extremity edema Status: Chronic Current Visit: Yes Code(s): R60.0 - Localized edema (5) Type 2 diabetes mellitus Status: Chronic Current Visit: Yes Code(s): E11.9 - Type 2 diabetes mellitus without complications (6) Hyperlipidemia Status: Chronic Current Visit: No Code(s): E78.5 - Hyperlipidemia, unspecified (7) Hypertension Status: Chronic Current Visit: No Code(s): I10 - Essential (primary) hypertension Type of Wound Date of Service: 01/09/20 Chief Complaint: Right lower leg ulcers History of Wound: The patient presented to the wound healing center on 12/12/2019 for evaluation of ulcers of her right lower extremity. She presented with her daughter. She has a past medical history significant for Parkinson's disease, type 2 diabetes mellitus, hypertension and hyperlipidemia. She has chronic lower extremity edema. A few months prior, the patient began developing small ulcerations of her right lower extremity. She also had an increase in lower extremity swelling at that time, as well as weeping edema and warmth and erythema of bilateral lower extremities. She was seen by her primary care doctor and completed a 7-day course of doxycycline for cellulitis. Her daughter stated that the erythema and warmth in the patient's lower extremities significantly improved with doxycycline. The patient was not using wound dressings at home. She applies aloe lotion to bilateral lower extremities for moisturization. She was not using compression at home. The patient denied any fever, chills, nausea, vomiting, or diarrhea. She denied any signs of infection, including increasing pain, redness, swelling, or purulent/foul- smelling drainage from affected area. Labs from 12/05/2019 were significant for WBC 11.7, platelets 487, ESR 85, glucose 233, hemoglobin A1c 10.6%, alk phos 131. She had not had any recent vascular studies. Cultures collected 12/12/2019 were positive for rare staph aureus; anaerobic cultures were negative. After clinical correlation, patient was placed on a second round of doxycycline x10 days. Venous studies completed on 12/26/2019 demonstrated venous insufficiency of the left lower extremity (left GSV below the knee incompetent, left ASV mid thigh incompetent, left ASV at knee incompetent). ABIs from 12/26/2019 showed following: Triphasic doppler waveforms at ankle level bilaterally. Pulse-volume recordings satisfactory at all levels bilaterally, including low-thigh, calf, ankle, and digital levels. The. resting right HOLLEY could not be determined due to the non-compressibility of the vasculature. The resting left HOLLEY is normal. Digital-brachial indices could not be determined on either side due to the non- compressibility of the vasculature at digital level bilaterally. There is evidence of arterial calcification at ankle level on the right, and at digital level. bilaterally. There is no evidence of significant arterial occlusive disease in the lower extremities bilaterally. Progress of Wound: Patient's daughter is accompanying her today. They have been compliant with use of purapply and bilateral Unna boots. The patient's lower extremity ulcers are healed today. She has no open wounds of her bilateral lower extremities. Her lower extremity erythema and swelling have improved with continuation of doxycycline and use of Unna boots. The patient is currently still taking her antibiotics. The patient denies any fever, chills, nausea, vomiting, or diarrhea. Denies any increasing pain, redness, swelling, or purulent/malodorous drainage. Dryness and irritation of bilateral lower extr emities has significantly improved with the use of Unna boots. - Physical Exam Vital Signs Temp Pulse Resp BP 97.1 F L 91 18 158/86 H 01/09/20 08:54 01/09/20 08:54 01/09/20 08:54 01/09/20 08:54 General: Alert, Cooperative, No apparent distress HEENT: Atraumatic, Normocephalic Oral: Moist Mucosa Neck: Supple, Trachea Midline Lungs: Normal air movement Extremities: No clubbing, No cyanosis, No edema, Capillary Refill Less than 3 Seconds, Diminished Peripheral Pulses Skin: No rashes, No breakdown, Ulcer/ Wound - Bilateral lower extremity ulcers are healed today. Wound Measurements and Assessment WC - Nurse 1 - General Ulcer Measurement Start: 01/02/20 09:01 Freq: Status: Active Protocol: Activity Type Activity Date Activity User E-Sign Co-Sign Detail Recorded Client Recorded Date Recorded By Document 01/09/20 08:54 MW [id number] 01/09/20 09:12 MW 01/09/20 08:54 Wound Center Nurse 1 [Ulcer Assessment] #4 Left Lat Lower Leg -Combined with other wound No -Current Size (cm) - Length 0.1 -Current Size (cm) - Width 0.1 -Current Size (cm) - Depth 0.1 -Total Square Cm 0.01 -Photo Taken No -Epithelialization None Present -Tunneling No -Undermining/Tunneling No -Circular Undermining No -Exudate Amt None Present -Wound Margin Flat & Intact -Granulation Amt None Present (0 %) -Granulation Quality N/A -Slough/Fibrin Yes -Necrosis Amt Small (1-33%) -Necrotic Tissue Type Adherent Slough -Structure Exposed N/A -Texture (Jeane-wound Skin Appearance) Assessed, Localized Edema ,Scarring -Moisture (Jeane-wound Skin Appearance No Abnormality, ) Assessed -Color (Jeane-wound Skin Appearance) No Abnormality, Assessed -Temperature (Jeane-wound Skin No Abnormality Appearance) (Pt Warm) -Tenderness on Palpation (Jeane-wound No Skin Appearance) -Ulcer Cleansing soap and water -Foul Odor after Cleansing No -Anesthetic Used 4% Lidocaine Solution 2-right medial jenkins -Combined with other wound No -Current Size (cm) - Length 0.1 -Current Size (cm) - Width 0.1 -Current Size (cm) - Depth 0.1 -Total Square Cm 0.01 -Photo Taken No -Epithelialization None Present -Tunneling No -Undermining/Tunneling No -Circular Undermining No -Exudate Amt None Present -Wound Margin Flat & Intact -Granulation Amt None Present (0 %) -Granulation Quality N/A -Slough/Fibrin Yes -Necrosis Amt Small (1-33%) -Necrotic Tissue Type Adherent Slough -Structure Exposed N/A -Texture (Jeane-wound Skin Appearance) Assessed, Localized Edema -Moisture (Jeane-wound Skin Appearance No Abnormality, ) Assessed -Color (Jeane-wound Skin Appearance) No Abnormality, Assessed -Temperature (Jeane-wound Skin No Abnormality Appearance) (Pt Warm) -Tenderness on Palpation (Jeane-wound No Skin Appearance) -Ulcer Cleansing soap and water -Foul Odor after Cleansing No -Anesthetic Used 4% Lidocaine Solution 1-right medial leg -Combined with other wound No -Current Size (cm) - Length 0.1 -Current Size (cm) - Width 0.1 -Current Size (cm) - Depth 0.1 -Total Square Cm 0.01 -Photo Taken No -Epithelialization None Present -Tunneling No -Undermining/Tunneling No -Circular Undermining No -Exudate Amt None Present -Wound Margin Flat & Intact -Granulation Amt None Present (0 %) -Granulation Quality N/A -Slough/Fibrin Yes -Necrosis Amt Small (1-33%) -Necrotic Tissue Type Adherent Slough -Structure Exposed N/A -Texture (Jeane-wound Skin Appearance) Assessed, Localized Edema ,Scarring -Moisture (Jeane-wound Skin Appearance Assessed ) -Color (Jeane-wound Skin Appearance) No Abnormality, Assessed -Temperature (Jeane-wound Skin No Abnormality Appearance) (Pt Warm) -Tenderness on Palpation (Jeane-wound Yes Skin Appearance) -Ulcer Cleansing soap and water -Foul Odor after Cleansing No -Anesthetic Used 4% Lidocaine Solution [Edema Assessment] -Lower Limb Edema Present Yes -Right Calf (cm) 39.5 -Right Ankle (cm) 23.5 -Left Calf (cm) 38.6 -Left Ankle (cm) 23.5 WC - Nurse 2 - General Ulcer CM Notes Start: 01/02/20 09:01 Freq: Status: Active Protocol: Activity Type Activity Date Activity User E-Sign Co-Sign Detail Recorded Client Recorded Date Recorded By Document 01/09/20 09:18 PL [id number] 01/09/20 09:28 PL 01/09/20 09:18 Wound Center Nurse 2 [Procedure/Treatment] #4 Left Lat Lower Leg -Wound/Ulcer Outcome Healed- Epithelialized 2-right medial jenkins -Wound/Ulcer Outcome Healed- Epithelialized 1-right medial leg -Wound/Ulcer Outcome Healed- Epithelialized [See Physician Procedure note for Specifics] ERICA - Nurse 3 - General Ulcer D/C NN Start: 01/02/20 09:01 Freq: Status: Active Protocol: Activity Type Activity Date Activity User E-Sign Co-Sign Detail Recorded Client Recorded Date Recorded By Document 01/09/20 09:56 [facility] [id number] 01/09/20 09:57 [facility] 01/09/20 09:56 Wound Care Nurse 3 [Wound Dressing] #4 Left Lat Lower Leg -Primary Dressing Covered/Secured Other with -Other Covering unna boot 2-right medial jenkins -Primary Dressing Covered/Secured Other with -Other Covering unna boot 1-right medial leg -Primary Dressing Applied Other -Other Dressing unna boot [Compression Applied] Left -Multi-Layered Wrap Application Unna Boot - Left ($) Right -Other unna boot. used 1 unna for both legs Pain Scale: 0-10 Numeric [Pain] -Is Patient Pain Free? Yes WC - Visit Discharge [Visit Discharge Information] -Discharge Condition Stable -Ambulatory Status Ambulatory, Walker -Transportation Private Auto -Accompanied by daughter Musculoskeletal: No Tenderness to Palpation of Joints or Extremities Psych/Mental Status: Normal Affect, Appropriate Debridement Note Post-Debridement Measurements/Treatment WC - Nurse 2 - General Ulcer CM Notes Start: 01/02/20 09:01 Freq: Status: Active Protocol: Activity Type Activity Date Activity User E-Sign Co-Sign Detail Recorded Client Recorded Date Recorded By Document 01/02/20 13:45 PL [id number] 01/02/20 13:54 PL Document 01/09/20 09:18 PL [id number] 01/09/20 09:28 PL 01/02/20 01/09/20 13:45 09:18 Wound Center Nurse 2 #4 Left Lat Lower Leg -Time 10:04 -Correct Patient Yes -Correct Side, Site, Position Yes -Correct Procedure Yes -Procedure Performed Yes -Type of Procedure Debridement -Clinical Debridement Subcutaneous -Tissue Removed Subcutaneous -Post Debridement (cm) - Length 3 -Post Debridement (cm) - Width 6.5 -Post Debridement (cm) - Depth 0.1 -Total Square (Post) (cm) 19.5 -Area of Debridement (cm) - Length 3 -Area of Debridement (cm) - Width 6.5 -Total Square (Area) (cm) 19.5 -Tunneling No -Undermining/Tunneling No -Circular Undermining No -Wound/Ulcer Outcome Not Healed Healed- Epithelialized -Bioengineered Tissue Yes -Type of Bioengineered Tissue PuraPly AM -Expiration Date 01/26/22 -Product Lot Number [id number] -Percent Used 100 -Saline Lot Number [id number] -Bleeding Controlled with Pressure -Debridement - Subq, 1st 20sq cm No -Apply Skin Sub - 1st 25 sq cm - Legs 1 -PuraPly AM (per sq cm) 8 #3 Right Post Lower leg -Procedure Performed No -Wound/Ulcer Outcome Healed- Epithelialized 2-right medial jenkins -Wound/Ulcer Outcome Healed- Healed- Epithelialized Epithelialized 1-right medial leg -Time 10:04 -Correct Patient Yes -Correct Side, Site, Position Yes -Correct Procedure Yes -Procedure Performed Yes -Type of Procedure Debridement -Clinical Debridement Subcutaneous -Tissue Removed Subcutaneous -Post Debridement (cm) - Length 2 -Post Debridement (cm) - Width 0.8 -Post Debridement (cm) - Depth 0.1 -Total Square (Post) (cm) 1.6 -Area of Debridement (cm) - Length 2 -Area of Debridement (cm) - Width 0.8 -Total Square (Area) (cm) 1.6 -Tunneling No -Undermining/Tunneling No -Circular Undermining No -Wound/Ulcer Outcome Not Healed Healed- Epithelialized -Bioengineered Tissue No -Debridement - Subq, 1st 20sq cm Yes Pain Scale: 0-10 Numeric Is Patient Pain Free? Yes WC - Nurse 3 - General Ulcer D/C NN Start: 01/02/20 09:01 Freq: Status: Active Protocol: Activity Type Activity Date Activity User E-Sign Co-Sign Detail Recorded Client Recorded Date Recorded By Document 01/02/20 10:48 DL [id number] 01/02/20 10:53 DL Document 01/09/20 09:56 [facility] [id number] 01/09/20 09:57 BMF 01/02/20 01/09/20 10:48 09:56 Wound Care Nurse 3 #4 Left Lat Lower Leg -Primary Dressing Covered/Secured with Other -Other Covering unna boot #3 Right Post Lower leg -Foul Odor after Cleansing No -Other Dressing Puraply/veil/ steri strips -Other Covering unna boot 2-right medial jenkins -Foul Odor after Cleansing No -Other Dressing puraply/veil/ strie strips -Primary Dressing Covered/Secured with Other -Other Covering unna boot unna boot 1-right medial leg -Foul Odor after Cleansing No -Primary Dressing Applied Other -Other Dressing Puraply/veil/ unna boot steri strips -Other Covering unna boot Left -Multi-Layered Wrap Application Unna Boot - Left ($) -Other unna boot Right -Multi-Layered Wrap Application Unna Boot - Bilateral ($) -Unna Boots (Bilat) ($) 2 -Other unna boot. used 1 unna for both legs Treatment Response Procedure Tolerated Well Pain Scale: 0-10 Numeric Is Patient Pain Free? Yes Yes WC - Visit Discharge Discharge Condition Stable Stable Ambulatory Status Ambulatory, Ambulatory, Walker Walker Transportation Private Auto Private Auto Accompanied by daughter Laterality: Not Applicable - Patient's bilateral lower extremity ulcers are healed No debridement was completed today Assessment/Plan Active Problems Bilateral lower extremity edema (Chronic) Venous insufficiency of left lower extremity (Chronic) Diabetic ulcer of right lower leg (Chronic) Diabetic ulcer of left lower leg (Chronic) Type 2 diabetes mellitus (Chronic) Assessment: As above Plan: No debridement performed today in clinic as patient's bilateral lower extremity venous ulcers are healed. The patient was approved for Puraply, Nushield, and Apligraf. She received 1 application of Puraply. She tolerated her Unna boots well and responded greatly to them. Another set of Unna boots was applied today in clinic to bilateral lower extremities. At home wound-care instructions: Keep Unna boots clean and dry. Contact the wound healing center if Unna boots are not well tolerated or if patient develops symptoms such as pain, numbness, or tingling of the feet/toes or discoloration of the feet/toes. If this occurs, the Unna boots will need to be removed. Compression: Unna boots applied today in the clinic. Continue to avoid prolonged standing or dangling of legs. When seated, legs should be elevated at or above waist level. Diet: Patient encouraged to increase protein and vitamin C intake while taking caution to avoid high carbohydrate and/or sugar intake. Labs/cultures/imaging: Cultures collected 12/12/2019 were positive for rare staph aureus. After clinical correlation, patient was started on another 10-day course of doxycycline for cellulitis, which she is currently taking and tolerating well. Recent blood work from 12/05/2019 reviewed; significant findings as listed above. Vascular studies were reviewed; significant findings listed above. Follow-up: Return to the clinic next Sunday for a nurse visit to ensure that bilateral lower extremity ulcers remain healed and there are no new ulcers present. If patient's wounds remained healed, she will be discharged from the wound healing center. She should contact the wound healing center should new or concerning symptoms arise. Note: [employer] speech recognition centerless grinding machine adjuster software was used to create portions of this document. Sound-alike and misspelled words, as well as other centerless grinding machine adjuster errors may be contained in the documentation. Office Visits / Consults: [id number] OV L3 Est
[2020-01-16 12:51] VITALS: BP 124/98; PULSE 97; RESP 20; TEMP 36.3; BMI 49.0
--- NOTE | 2020-01-16 14:09 | PCM.WC.PN ---
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 Code(s): E11.622 - Type 2 diabetes mellitus with other skin ulcer; L97.919 - Non-pressure chronic ulcer of unspecified part of right lower leg with unspecified severity (3) Diabetic ulcer of left lower leg Status: Chronic Code(s): E11.622 - Type 2 diabetes mellitus with other skin ulcer; L97.929 - Non-pressure chronic ulcer of unspecified part of left lower leg with unspecified severity (4) Type 2 diabetes mellitus Status: Chronic Qualifiers: Diabetes mellitus complication status: with skin complications Diabetes mellitus complication detail: with other skin ulcer Code(s): E11.9 - Type 2 diabetes mellitus without complications Type of Wound Date of Service: 01/16/20 Chief Complaint: Right lower leg ulcers History of Wound: The patient presented to the wound healing center on 12/12/2019 for evaluation of ulcers of her right lower extremity. She presented with her daughter. She has a past medical history significant for Parkinson's disease, type 2 diabetes mellitus, hypertension and hyperlipidemia. She has chronic lower extremity edema. A few months prior, the patient began developing small ulcerations of her right lower extremity. She also had an increase in lower extremity swelling at that time, as well as weeping edema and warmth and erythema of bilateral lower extremities. She was seen by her primary care doctor and completed a 7-day course of doxycycline for cellulitis. Her daughter stated that the erythema and warmth in the patient's lower extremities significantly improved with doxycycline. The patient was not using wound dressings at home. She applies aloe lotion to bilateral lower extremities for moisturization. She was not using compression at home. The patient denied any fever, chills, nausea, vomiting, or diarrhea. She denied any signs of infection, including increasing pain, redness, swelling, or purulent/foul-smelling drainage from affected area. Labs from 12/05/2019 were significant for WBC 11.7, platelets 487, ESR 85, glucose 233, hemoglobin A1c 10.6%, alk phos 131. She had not had any recent vascular studies. Cultures collected 12/12/2019 were positive for rare staph aureus; anaerobic cultures were negative. After clinical correlation, patient was placed on a second round of doxycycline x10 days. Venous studies completed on 12/26/2019 demonstrated venous insufficiency of the left lower extremity (left GSV below the knee incompetent, left ASV mid thigh incompetent, left ASV at knee incompetent). ABIs from 12/26/2019 showed following: Triphasic doppler waveforms at ankle level bilaterally. Pulse-volume recordings satisfactory at all levels bilaterally, including low-thigh, calf, ankle, and digital levels. The. resting right HOLLEY could not be determined due to the non-compressibility of the vasculature. The resting left HOLLEY is normal. Digital-brachial indices could not be determined on either side due to the non-compressibility of the vasculature at digital level bilaterally. There is evidence of arterial calcification at ankle level on the right, and at digital level. bilaterally. There is no evidence of significant arterial occlusive disease in the lower extremities bilaterally. Progress of Wound: Patient's daughter is accompanying her today. They have been compliant with use bilateral Unna boots. The patient's lower extremity ulcers remain healed today. She has no open wounds of her bilateral lower extremities. Her lower extremity erythema and swelling have improved with continuation of Unna boots. The patient denies any fever, chills, nausea, vomiting, or diarrhea. Denies any increasing pain, redness, swelling, or purulent/malodorous drainage. - Physical Exam Vital Signs Temp Pulse Resp BP 97.4 F L 97 20 H 124/98 H 01/16/20 12:51 01/16/20 12:51 01/16/20 12:51 01/16/20 12:51 General: Alert, Oriented x3, Cooperative, No apparent distress HEENT: Atraumatic, Normocephalic Oral: Moist Mucosa Abdomen: Obese Extremities: Edema Skin: No breakdown Wound Measurements and Assessment WC - Nurse 1 - General Ulcer Measurement Start: 01/02/20 09:01 Freq: Status: Active Protocol: Activity Type Activity Date Activity User E-Sign Co-Sign Detail Recorded Client Recorded Date Recorded By Document 01/16/20 12:51 DL [id number] 01/16/20 13:08 DL 01/16/20 12:51 Wound Center Nurse 1 [Ulcer Assessment] #4 Left Lat Lower Leg -Current Size (cm) - Length 0 -Current Size (cm) - Width 0 -Current Size (cm) - Depth 0 -Total Square Cm 0 -Photo Taken Yes -Exudate Amt None Present -Wound Margin Flat & Intact -Granulation Amt Large (67-100%) -Granulation Quality [place] -Necrosis Amt None Present (0 %) -Structure Exposed N/A -Texture (Jeane-wound Skin Appearance) No Abnormality -Moisture (Jeane-wound Skin Appearance No Abnormality ) -Color (Jeane-wound Skin Appearance) No Abnormality -Temperature (Jeane-wound Skin No Abnormality Appearance) (Pt Warm) -Tenderness on Palpation (Jeane-wound No Skin Appearance) -Ulcer Cleansing Wound Cleanser -Foul Odor after Cleansing No 2-right medial jenkins -Current Size (cm) - Length 0 -Current Size (cm) - Width 0 -Current Size (cm) - Depth 0 -Total Square Cm 0 -Photo Taken Yes -Exudate Amt None Present -Wound Margin Flat & Intact -Granulation Amt Large (67-100%) -Granulation Quality [place] -Necrosis Amt None Present (0 %) -Structure Exposed N/A -Texture (Jeane-wound Skin Appearance) Scarring -Moisture (Jeane-wound Skin Appearance No Abnormality ) -Color (Jeane-wound Skin Appearance) No Abnormality -Temperature (Jeane-wound Skin No Abnormality Appearance) (Pt Warm) -Tenderness on Palpation (Jeane-wound No Skin Appearance) -Ulcer Cleansing Wound Cleanser 1-right medial leg -Current Size (cm) - Length 0 -Current Size (cm) - Width 0 -Current Size (cm) - Depth 0 -Total Square Cm 0 -Photo Taken Yes -Exudate Amt None Present -Granulation Amt Large (67-100%) -Granulation Quality [place] -Necrosis Amt None Present (0 %) -Structure Exposed N/A -Texture (Jeane-wound Skin Appearance) No Abnormality -Moisture (Jeane-wound Skin Appearance No Abnormality ) -Color (Jeane-wound Skin Appearance) No Abnormality -Temperature (Jeane-wound Skin No Abnormality Appearance) (Pt Warm) -Tenderness on Palpation (Jeane-wound No Skin Appearance) -Ulcer Cleansing Wound Cleanser -Foul Odor after Cleansing No WC - Nurse 2 - General Ulcer CM Notes Start: 01/02/20 09:01 Freq: Status: Active Protocol: Activity Type Activity Date Activity User E-Sign Co-Sign Detail Recorded Client Recorded Date Recorded By Document 01/16/20 13:51 MW [id number] 01/16/20 14:07 MW 01/16/20 13:51 Wound Center Nurse 2 [Procedure/Treatment] #4 Left Lat Lower Leg -Time 13:55 -Correct Patient Yes -Correct Side, Site, Position Yes -Correct Procedure Yes -Procedure Performed No -Post Debridement (cm) - Length 0 -Post Debridement (cm) - Width 0 -Post Debridement (cm) - Depth 0 -Total Square (Post) (cm) 0 -Wound/Ulcer Outcome Healed- Epithelialized 2-right medial jenkins -Time 13:55 -Correct Patient Yes -Correct Side, Site, Position Yes -Correct Procedure Yes -Procedure Performed No -Post Debridement (cm) - Length 0 -Post Debridement (cm) - Width 0 -Post Debridement (cm) - Depth 0 -Total Square (Post) (cm) 0 -Wound/Ulcer Outcome Healed- Epithelialized 1-right medial leg -Time 13:55 -Correct Patient Yes -Correct Side, Site, Position Yes -Correct Procedure Yes -Procedure Performed No -Post Debridement (cm) - Length 0 -Post Debridement (cm) - Width 0 -Post Debridement (cm) - Depth 0 -Total Square (Post) (cm) 0 -Wound/Ulcer Outcome Healed- Epithelialized [See Physician Procedure note for Specifics] Pain Scale: 0-10 Numeric [Pain] -Is Patient Pain Free? Yes WC - Nurse 3 - General Ulcer D/C NN Start: 01/02/20 09:01 Freq: Status: Active Protocol: Activity Type Activity Date Activity User E-Sign Co-Sign Detail Recorded Client Recorded Date Recorded By Document 01/16/20 14:07 MW [id number] 01/16/20 14:08 MW 01/16/20 14:07 Wound Care Nurse 3 [Compression Applied] Left -Lotion applied to leg before No compression wrap -Tubular Bandage Double Layer -Size of Tubigrip Used Size E -Size E ($) 2 Right -Lotion applied to leg before No compression wrap -Tubular Bandage Double Layer -Size of Tubigrip Used Size E -Size E ($) 2 [Post Procedure Tolerated] -Treatment Response Procedure Tolerated Well Pain Scale: 0-10 Numeric [Pain] -Is Patient Pain Free? Yes Teaching: Wound Center [Wound Center Education] (Items with an * have Printed Materials Available- Please identify what is given to patient under the Teaching materials given to patient and caregiver Section. Compression Wraps & Stockings -Person Taught Patient,Family -Teaching Method Discussion, Demonstration -Response to teaching Verbalize understanding WC - Visit Discharge [Visit Discharge Information] -Discharge Condition Stable -Ambulatory Status Ambulatory, Walker -Transportation Private Auto -Accompanied by daughter -Medication Reconcilliation completed No & provided to patient/care provider -Clinical Summary of Care Provided Yes -Notes: healed, discharged Psych/Mental Status: Normal Affect, Appropriate Debridement Note Post-Debridement Measurements/Treatment WC - Nurse 2 - General Ulcer CM Notes Start: 01/02/20 09:01 Freq: Status: Active Protocol: Activity Type Activity Date Activity User E-Sign Co-Sign Detail Recorded Client Recorded Date Recorded By Document 01/02/20 13:45 PL [id number] 01/02/20 13:54 PL Document 01/09/20 09:18 PL [id number] 01/09/20 09:28 PL Document 01/16/20 13:51 MW [id number] 01/16/20 14:07 MW 01/02/20 01/09/20 01/16/20 13:45 09:18 13:51 Wound Center Nurse 2 #4 Left Lat Lower Leg -Time 10:04 13:55 -Correct Patient Yes Yes -Correct Side, Site, Position Yes Yes -Correct Procedure Yes Yes -Procedure Performed Yes No -Type of Procedure Debridement -Clinical Debridement Subcutaneous -Tissue Removed Subcutaneous -Post Debridement (cm) - Length 3 0 -Post Debridement (cm) - Width 6.5 0 -Post Debridement (cm) - Depth 0.1 0 -Total Square (Post) (cm) 19.5 0 -Area of Debridement (cm) - Length 3 -Area of Debridement (cm) - Width 6.5 -Total Square (Area) (cm) 19.5 -Tunneling No -Undermining/Tunneling No -Circular Undermining No -Wound/Ulcer Outcome Not Healed Healed- Healed- Epithelialized Epithelialized -Bioengineered Tissue Yes -Type of Bioengineered Tissue PuraPly AM -Expiration Date 01/26/22 -Product Lot Number [id number] -Percent Used 100 -Saline Lot Number [id number] -Bleeding Controlled with Pressure -Debridement - Subq, 1st 20sq cm No -Apply Skin Sub - 1st 25 sq cm - Legs 1 -PuraPly AM (per sq cm) 8 #3 Right Post Lower leg -Procedure Performed No -Wound/Ulcer Outcome Healed- Epithelialized 2-right medial jenkins -Time 13:55 -Correct Patient Yes -Correct Side, Site, Position Yes -Correct Procedure Yes -Procedure Performed No -Post Debridement (cm) - Length 0 -Post Debridement (cm) - Width 0 -Post Debridement (cm) - Depth 0 -Total Square (Post) (cm) 0 -Wound/Ulcer Outcome Healed- Healed- Healed- Epithelialized Epithelialized Epithelialized 1-right medial leg -Time 10:04 13:55 -Correct Patient Yes Yes -Correct Side, Site, Position Yes Yes -Correct Procedure Yes Yes -Procedure Performed Yes No -Type of Procedure Debridement -Clinical Debridement Subcutaneous -Tissue Removed Subcutaneous -Post Debridement (cm) - Length 2 0 -Post Debridement (cm) - Width 0.8 0 -Post Debridement (cm) - Depth 0.1 0 -Total Square (Post) (cm) 1.6 0 -Area of Debridement (cm) - Length 2 -Area of Debridement (cm) - Width 0.8 -Total Square (Area) (cm) 1.6 -Tunneling No -Undermining/Tunneling No -Circular Undermining No -Wound/Ulcer Outcome Not Healed Healed- Healed- Epithelialized Epithelialized -Bioengineered Tissue No -Debridement - Subq, 1st 20sq cm Yes Pain Scale: 0-10 Numeric Is Patient Pain Free? Yes Yes WC - Nurse 3 - General Ulcer D/C NN Start: 01/02/20 09:01 Freq: Status: Active Protocol: Activity Type Activity Date Activity User E-Sign Co-Sign Detail Recorded Client Recorded Date Recorded By Document 01/02/20 10:48 DL [id number] 01/02/20 10:53 DL Document 01/09/20 09:56 [facility] [id number] 01/09/20 09:57 BMF Document 01/16/20 14:07 MW [id number] 01/16/20 14:08 MW 01/02/20 01/09/20 01/16/20 10:48 09:56 14:07 Wound Care Nurse 3 #4 Left Lat Lower Leg -Primary Dressing Covered/Secured with Other -Other Covering unna boot #3 Right Post Lower leg -Foul Odor after Cleansing No -Other Dressing Puraply/veil/ steri strips -Other Covering unna boot 2-right medial jenkins -Foul Odor after Cleansing No -Other Dressing puraply/veil/ strie strips -Primary Dressing Covered/Secured with Other -Other Covering unna boot unna boot 1-right medial leg -Foul Odor after Cleansing No -Primary Dressing Applied Other -Other Dressing Puraply/veil/ unna boot steri strips -Other Covering unna boot Left -Lotion applied to leg before No compression wrap -Multi-Layered Wrap Application Unna Boot - Bilateral ($) -Unna Boots (Bilat) ($) 2 -Tubular Bandage Double Layer -Size of Tubigrip Used Size E -Size E ($) 2 -Other unna boot Right -Lotion applied to leg before No compression wrap -Multi-Layered Wrap Application Unna Boot - Bilateral ($) -Unna Boots (Bilat) ($) 2 -Tubular Bandage Double Layer -Size of Tubigrip Used Size E -Size E ($) 2 -Other unna boot. used 1 unna for both legs Treatment Response Procedure Procedure Tolerated Well Tolerated Well Pain Scale: 0-10 Numeric Is Patient Pain Free? Yes Yes Yes Teaching: Wound Center Compression Wraps & Stockings -Person Taught Patient,Family -Teaching Method Discussion, Demonstration -Response to teaching Verbalize understanding WC - Visit Discharge Discharge Condition Stable Stable Stable Ambulatory Status Ambulatory, Ambulatory, Ambulatory, Walker Walker Walker Transportation Private Auto Private Auto Private Auto Accompanied by daughter daughter Medication Reconcilliation completed & No provided to patient/care provider Clinical Summary of Care Provided Yes Notes: healed, discharged Wound debrided: right lower extremity ulcers Laterality: Right No debridement was completed today - healed Assessment/Plan Active Problems Venous insufficiency of left lower extremity (Chronic) Diabetic ulcer of right lower leg (Chronic) Diabetic ulcer of left lower leg (Chronic) Assessment: As above Plan: No debridement performed today in clinic as patient's bilateral lower extremity venous ulcers are healed. She tolerated her Unna boots well and responded greatly to them. She was given tubigrip compression to wear in double layer and instructed to obtain compression stockings with strength of at least 15-20 mm Hg and if able to tolerate 20-30 mm Hg. At home wound-care instructions: Apply lotion as needed for dry skin. Compression: Tubigrip or compression stockings daily upon rising and remove at bedtime. Continue to avoid prolonged standing or dangling of legs. When seated, legs should be elevated at or above waist level. Diet: Patient encouraged to increase protein and vitamin C intake while taking caution to avoid high carbohydrate and/or sugar intake. Labs/cultures/imaging: Cultures collected 12/12/2019 were positive for rare staph aureus. After clinical correlation, patient was started on another 10-day course of doxycycline for cellulitis, which she is currently taking and tolerating well. Recent blood work from 12/05/2019 reviewed; significant findings as listed above. Vascular studies were reviewed; significant findings listed above. Follow-up: Return to the clinic as needed. Note: [employer]ive speech recognition emt/dispatcher software was used to create portions of this document. Sound-alike and misspelled words, as well as other emt/dispatcher errors may be contained in the documentation.
== END 2020-01-20 11:21 | disposition home or self-care (01) ==
LOC: WC 13:00
PROVIDERS: PCP Family Medicine; Referring Provider Family Medicine; Visit Provider Nurse Practitioner Family
DX: E11.622 Type 2 diabetes mellitus with other skin ulcer (principal); I87.2 Venous insufficiency (chronic) (peripheral); R60.0 Localized edema; E78.5 Hyperlipidemia, unspecified; I10 Essential (primary) hypertension; L97.822 Non-pressure chronic ulcer of other part of left lower leg with fat layer exposed; L97.812 Non-pressure chronic ulcer of other part of right lower leg with fat layer exposed
CPT/HCPCS: 11042; 15271; 29580; 99212; Q4196; G0463

== ENCOUNTER → 2020-04-22 14:53 | Outpatient (CLI) | payer MEDICARE, SELFPAY ==
[2020-04-08 08:05] VITALS: BMI 35.8
--- NOTE | 2020-04-22 15:02 | MRI_ITS ---
STUDY: MRI BRAIN WITHOUT CONTRAST REASON FOR EXAM: Female, 74 years old. dementia, Parkinson''s TECHNIQUE: Standardized multiplanar fat and water weighted pulse sequences were obtained. COMPARISON: 08/20/2015 FINDINGS: There is moderate cerebral atrophy with widening of the extra-axial spaces and ventricular dilatation. There are multiple white matter hyperintensities, distributed throughout the deep white matter tracts of the cerebral hemispheres, consistent with moderate chronic white matter ischemic changes. 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 There is no evidence for recent intracranial ischemia or other cause of cytotoxic edema on diffusion weighted imaging (DWI). There are 2 punctate areas of hemosiderin staining within the superior cerebellar peduncles consistent with chronic hemorrhages. These were likely present on the prior study. No new hemorrhage. Midbrain iron stores are depleted consistent with a history of Parkinson''s disease. Normal bilateral basal ganglia. Normal thalami. There is no extra-axial fluid accumulation. Normal flow voids within the major intracranial circulation suggesting patency by spin echo criteria. There is enlargement of the sella turcica with increased CSF within the sella and flattening of the pituitary gland consistent with an empty sellar syndrome. Normal infundibular stalk, hypothalamus, and optic chiasm. Normal tectal plate and pineal gland. Normal midbrain, allen and medulla. Normal cerebellum. Normal basal cisterns. Normal bilateral temporal bones. Normal bilateral internal auditory canals. There are bilateral ocular lens implants with otherwise normal intraorbital contents. Normal visualized paranasal sinuses. Normal calvarium and skull base. Normal visualized soft tissue structures. Normal visualized upper cervical spine. MRI/Brain without Contrast IMPRESSION: 1. No change from 08/20/2015. 2. Moderate atrophy and microangiopathic gliosis. 3. Chronic punctate hemorrhages of the superior cerebellar peduncles possibly from amyloid angiopathy. 4. Known Parkinson''s disease. 5. 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 Electronically Signed: Sharath Abarca MD at 17:16 EST Tel , Service support ,
[2020-04-22 15:51] LABS: CREATININE FINGERSTICK 1.1 mg/dL (0.55-1.02)
== END ==
PROVIDERS: PCP Family Medicine; Referring Provider Psychiatry & Neurology Neurology; Visit Provider Psychiatry & Neurology Neurology
DX: G20 Parkinson's disease (principal); F02.80 Dementia in other diseases classified elsewhere, unspecified severity, without behavioral disturbance, psychotic disturbance, mood disturbance, and anxiety
CPT/HCPCS: 70551

== ENCOUNTER 2020-06-08 12:24 | Emergency (ER) | payer MEDICARE, SELFPAY ==
[2020-04-08 08:05] VITALS: BMI 35.8
[2020-06-08 12:24] VITALS: BP 107/47; PULSE 94; RESP 16; TEMP 36.9; O2SAT 97; BMI 32.5
--- NOTE | 2020-06-08 12:47 | CT_ITS ---
STUDY: CT ABDOMEN AND PELVIS WITH CONTRAST REASON FOR EXAM: Female, 74 years old. vomiting, left sided tenderness RADIATION DOSAGE (If Supplied By Facility): CTDIvol = ( 15.64 ) mGy, DLP = ( 1064.18 ) mGycm TECHNIQUE: Transaxial images were obtained from the dome of the diaphragm to the symphysis pubis without oral contrast. IV 100mL Isovue-300 was administered. Sagittal and coronal images were reconstructed. Individualized dose optimization techniques were used for this CT. COMPARISON: None. FINDINGS: The visualized lung bases are unremarkable. The visualized portions of the heart are within normal limits. Normal liver. There are surgical clips in the gallbladder fossa consistent with a prior cholecystectomy. Normal spleen. Normal pancreas. There are small, circumscribed, smooth, low attenuation bilateral adrenal masses, consistent with an adrenal adenoma. Normal right kidney. Normal left kidney. Normal visualized stomach. Normal small intestine. There are multiple colonic diverticula consistent with diverticulosis. The appendix is visualized and appears normal. There is diffuse atherosclerotic calcification of the abdominal aorta, without a demonstrated aneurysm. Normal inferior vena cava. Normal retroperitoneum. Normal urinary bladder. There is a small umbilical hernia containing fat. There are diffuse degenerative changes of the visualized lumbar spine. CT/Abdomen/Pelvis W IV Cont ONLY IMPRESSION: No acute abnormality of the abdomen and pelvis. There are small, circumscribed, smooth, low attenuation bilateral adrenal masses, consistent with an adrenal adenoma. There are multiple colonic diverticula consistent with diverticulosis. There is a small umbilical hernia containing fat. Electronically Signed: Narciso Eisenberg MD at 15:15 EST Tel , Service support ,
--- NOTE | 2020-06-08 12:48 | EKG12_ITS ---
Test Reason : NAUSEA Blood Pressure : / mmHG Vent. Rate : 076 BPM Atrial Rate : 076 BPM P-R Int : 212 ms QRS Dur : 080 ms QT Int : 394 ms P-R-T Axes : 009 020 048 degrees QTc Int : 443 ms Sinus rhythm with 1st degree A-V block Otherwise normal ECG Confirmed by SARANYA ROD, ISABELLE ([id number]), visual effects editor MARQUIS DARNELL ([id number]) on 06/14/2020 10:23:46 A M Referred By: OMAR/BB Confirmed By:SONNY BEAVER MD
--- NOTE | 2020-06-08 12:48 | ED.VIS.GI ---
History of Present Illness Chief Complaint: Nausea/Vomiting Informant: Patient, Family, PCP - Abdominal Pain/Flank Pain Quality: - - Denies pain - Nausea/Vomiting/Emesis GI Symptom: Nausea, Vomiting Onset: Days - 4 Quality: Nonbilious. Negative for: Blood streaks, Coffee ground, Hematemesis Severity: Severe - Trouble keeping liquids down - Diarrhea/Melena/Hematochezia GI Symptom: Diarrhea. Negative for: Melena, Hematochezia Onset: - - Chronic since partial colectomy Stool Quality: Loose. Negative for: Black, Maroon, IMELDA per rectum Narrative: 74-year-old female who lives with her daughter, she is been vomiting for 4 days. No sick contacts in the house. No fevers or chills. She is been having diarrhea but that is chronic for her and her stools look like normal without blood or melena. She had a partial colectomy because of colon cancer. She is currently on no other cancer treatments. No coughing, shortness of breath, chest pain. She has been able to urinate and states that she is urinating a bit more than usual, despite not being able to keep much in the way of fluids down. Daughter has been pushing fluids and water trying to keep her hydrated. Seen in PCPs office today, and diverted to the emergency department since she looked like she could be dehydrated and may be in need of further testing. Patient denies having any abdominal pain in the last 4 days. - Past Medical History (1) Essential hypertension Status: Chronic (2) Hyperlipidemia Status: Chronic (3) Parkinson's disease Status: Chronic Comment: 2012 (4) Type 2 diabetes mellitus Status: Chronic (5) History of colon cancer Status: Chronic (6) Hypertension Status: Chronic (7) Venous insufficiency of left lower extremity Status: Chronic Past Medical History - Allergies and Home Meds Allergies/Adverse Reactions: Allergies codeine Allergy (Verified 06/08/20 12:27) hives Primary Care Physician: Prateek Cruz MD [Primary Care Provider] - Surgical History: cholecystectomy, colectomy Lives: With Family Review of Systems General: Reports: Malaise. Denies: Chills, Fever, Sweats Eyes: Denies: Visual changes - bilaterally, Diplopia ENT: Denies: Rhinorrhea, Sore throat Cardiovascular: Denies: Chest pain, Palpitations Respiratory: Denies: Dyspnea, Cough, Dyspnea on exertion Gastrointestinal: Reports: Nausea, Vomiting, Diarrhea. Denies: Abdominal pain, Melena, Hematochezia Genitourinary: Reports: Frequency. Denies: Dysuria, Hematuria Musculoskeletal: Denies: Neck pain, Back pain, Swelling, Extremity Pain Skin: Denies: Rash, Wounds Neurological: Denies: Headache, Weakness, Numbness Physical Exam Vital Signs/Narrative: Vital Signs Temp Pulse Resp BP Pulse Ox 06/08/20 12:24 98.4 F 94 16 107/47 L 97 Inital Vital Signs reviewed: Yes General: Well nourished, Well developed, No Acute Distress Head: Normocephalic, Atraumatic Eyes: Perrl, EOMI ENT: Moist mucous membranes, No rhinorrhea Neck: Supple, Nontender Cardiovascular: Regular rate, Regular rhythm, No murmurs Respiratory: No distress, CTA bilaterally, Chest nontender Abdomen: Soft, Nondistended, Normal bowel sounds, Tender - Throughout left side, otherwise nontender. Negative for: Guarding, Rebound tenderness, Pulsatile mass Back: Nontender, Normal Inspection Extremities: Nontender, No edema. Negative for: Calf Tenderness Skin: Normal color, No rash, No Trauma Neurological: Alert, Oriented x3, Cranial nerves II-XII grossly intact, Normal Strength, Normal Sensation Psychological: Normal affect, Normal Mood Diagnostic/Tx/Re-eval Laboratory Tests 06/08/20 06/08/20 06/08/20 Range/Units 14:25 12:56 12:56 WBC 9.7 (4.4-11.0) K/mm3 RBC 4.93 (4.2-5.4) M/mm3 Hgb 13.9 (12.0-15.0) g/dL Hct 41.9 (37-47) % MCV 85.0 (81-99) fL MCH 28.2 (27.0-32.0) pg MCHC 33.2 (32-36) g/dL RDW Std Deviation 39.8 (35.1-43.9) fl RDW Coeff of Damon 12.9 (11.6-14.6) % Plt Count 395 (150-450) K/mm3 MPV 8.9 (6.2-12.0) fl Immature Gran % (Auto) 0.400 (0.0-0.9) % Neut % (Auto) 80.5 H (47-70) % Lymph % (Auto) 9.6 L (19-41) % [place] % (Auto) 8.0 (0-10) % Eos % (Auto) 1.1 (0-5) % Baso % (Auto) 0.4 (0-1) % Absolute Neuts (auto) 7.8 H (2.0-7.7) X10^3/uL Absolute Lymphs (auto) 0.93 (0.83-4.51) X10^3/uL Nucleated RBC % 0 (0-5) % Sodium 130 L (136-145) mmol/L Potassium 3.8 (3.5-5.1) mmol/L Chloride 92 L (98-107) mmol/L Carbon Dioxide 29.0 (21.0-32.0) mmol/L Anion Gap 9 (5-15) BUN 13 (7-18) mg/dL Creatinine 0.92 (0.55-1.02) mg/dL Estim Creat Clear Calc 45.62 ml/min Est GFR (MDRD) Af Amer 77 (>60) mL/min Est GFR (MDRD) Non-Af 64 (>60) mL/min BUN/Creatinine Ratio 14.2 (10-20) RATIO Glucose 200 H (74-106) mg/dL Calcium 9.0 (8.5-10.1) mg/dL Total Bilirubin 0.80 (0.20-1.00) mg/dL AST 11 L (15-37) U/L ALT 7 L (13-56) U/L Alkaline Phosphatase 102 (45-117) U/L Troponin I 0.042 (<0.045) ng/mL Total Protein 7.6 (6.4-8.2) g/dL Albumin 3.2 (3.2-5.0) g/dL Globulin 4.4 H (2.2-4.2) g/dL Albumin/Globulin Ratio 0.7 L (0.9-2.4) RATIO Lipase 282 (73-393) U/L Urine Color Yellow (Yellow) Urine Clarity Sl. Cloudy (Clear) Urine pH 6.0 (5.0 - 8.0) Ur Specific [place] 1.015 (1.002-1.030) Urine Protein 500 H (Negative) mg/dl Urine Glucose (UA) Normal (Normal) mg/dl Urine Ketones 5 H (Negative) mg/dl Urine Occult Blood Negative (Negative) /ul Urine Nitrite Negative (Negative) Urine Bilirubin Negative (Negative) mg/dL Urine Urobilinogen Normal (Normal) mg/dl Ur Leukocyte Esterase Negative (Negative) /ul Urine RBC 0 SEEN (0-5) /hpf Urine WBC 0 SEEN (0-5) /hpf Ur Squamous Epith Cells 0-5 SEEN (5-10) /hpf Urine Bacteria 0 SEEN (None Seen) /hpf Urine Mucus 0 SEEN (<or=2+) /hpf Clinical Impression(s) from Imaging Studies Abdomen/Pelvis CT 06/08/20 12:47 IMPRESSION: No acute abnormality of the abdomen and pelvis. There are small, circumscribed, smooth, low attenuation bilateral adrenal masses, consistent with an adrenal adenoma. There are multiple colonic diverticula consistent with diverticulosis. There is a small umbilical hernia containing fat. Electronically Signed: Narciso Eisenberg MD at 15:15 EST Tel , Service support , - Rhythm Strip Rhythm Strip: Sinus Rhythm Rate: 76 Ectopy: None - EKG Initial EKG Interpretation: Sinus Rhythm, No Acute Injury Pattern, AV Block - 1st deg - Medical Decision Making Other than mild hyperglycemia 200, her metabolic work-up was unremarkable and she does not have STEPHANIA or prerenal azotemia. Cardiac testing shows nothing acute. She was treated with IV fluids, Zofran, and CT is ordered to evaluate for possible etiologies such as diverticulitis, bowel obstruction, perforated viscus, or other acute intra-abdominal inflammatory disorders that could explain her left-sided abdominal tenderness and vomiting. As above, CT shows nothing acute. I did note the small ventral hernia noted on the CT, after I viewed the CT and then reevaluated the patient clinically. It is easily reducible, likely just contains fat, and is nontender. Therefore I do not suspect this is related to her acute symptoms of vomiting. Since everything else looks good here and she does not have acute diverticulitis or any other acute intra-abdominal process, functional etiologies are considered. After treatment with the above, she is feeling much better, tolerating oral fluids without nausea. She wants to go home. I am okay with that, family is okay with that, I will place her on Zofran as well as a 2-week course of Protonix and she can follow-up. ED Disposition - Plan for ED Patient: Disposition: Home or Assisted Living Diagnosis: Vomiting, Left sided abdominal pain, Ventral incisional hernia without obstruction or gangrene Instructions: ED Vomiting (Adult), ED Hernia (Adult) Prescriptions: Pantoprazole Sodium [Protonix] 40 mg PO DAILY #14 tab [id number] Ondansetron [Zofran Odt] 8 mg PO Q8H PRN PRN #20 tab PRN Reason: Nausea Transmission Status[id number] Referrals: Prateek Cruz MD [Primary Care Provider] - 3-5 Days if not improving
[2020-06-08 12:59] LABS: Absolute Lymphocyte Count 0.93 X10^3/uL (0.83-4.51); Absolute Neutrophil Count 7.8 X10^3/uL (2.0-7.7); Basophil# 0.04 X10^3/uL; Basophil% 0.4 % (0-1); Eosinophil# 0.11 X10^3/uL; Eosinophils% 1.1 % (0-5); Hematocrit 41.9 % (37-47); Hemoglobin 13.9 g/dL (12.0-15.0); Lymphocyte # 0.93 X10^3/ul (4.0); Lymphocyte % 9.6 % (19-41); Mean Corp Hgb Conc 33.2 g/dL (32-36); Mean Corpuscular Hgb 28.2 pg (27.0-32.0); Mean Platelet Vol. 8.9 fl (6.2-12.0); Monocyte# 0.77 X10^3/uL; NRBC Flagged by Analyzer 0 % (0-5); Neutrophil # 7.77 X10^3/uL (2.7-7.7); Neutrophil % 80.5 % (47-70); Platelet Count 395 K/mm3 (150-450); RBC Distribution Width CV 12.9 % (11.6-14.6); RBC Distribution Width SD 39.8 fl (35.1-43.9); Red Blood Count 4.93 M/mm3 (4.2-5.4); White Blood Count 9.7 K/mm3 (4.4-11.0)
[2020-06-08] MEDS: Ondansetron 4 MG/2 ML Vial IV (13:08)
[2020-06-08] MEDS: 0.9% Normal Saline 1,000 ML 1000 ML IV (13:08)
[2020-06-08 13:16] LABS: ALB/GLOB Ratio 0.7 RATIO (0.9-2.4); AST(SGOT) 11 U/L (15-37); Alanine Aminotransfer ALT/SGPT 7 U/L (13-56); Albumin, Serum 3.2 g/dL (3.2-5.0); Alkaline Phosphatase 102 U/L (45-117); Anion Gap 9 (5-15); BUN 13 mg/dL (7-18); BUN/Creat Ratio 14.2 RATIO (10-20); Chloride 92 mmol/L (98-107); Creatinine, Serum 0.92 mg/dL (0.55-1.02); EST Glomerular Filtration Rate 64 mL/min (>60); Est Glom Filt Rate - Afr Amer 77 mL/min (>60); Estimated Creatinine Clearance 45.62 ml/min; Globulin 4.4 g/dL (2.2-4.2); Glucose 200 mg/dL (74-106); Lipase 282 U/L (73-393); Potassium 3.8 mmol/L (3.5-5.1); Protein, Total 7.6 g/dL (6.4-8.2); Sodium Level 130 mmol/L (136-145)
[2020-06-08 14:32] LABS: Bacteria 0 SEEN /hpf (None Seen); Mucous, Urine 0 SEEN /hpf (<or=2+); Red Blood Cells-Urine 0 SEEN /hpf (0-5); White Blood Cells 0 SEEN /hpf (0-5)
[2020-06-08 14:35] LABS: Color, Urine Yellow (Yellow); Glucose, Dipstick Normal (Normal); Ketone-Dipstick 5 mg/dl (Negative); Leukocyte Esterase-Dipstick Negative /ul (Negative); Nitrite-Dipstick Negative (Negative); Occult Blood-Urine Negative /ul (Negative); Protein-Dipstick 500 mg/dl (Negative); Specific Gravity, Urine 1.015 (1.002-1.030); Urine Bilirubin Dipstick Negative (Negative); Urine Clarity Sl. Cloudy (Clear); Urine Urobilinogen Normal (Normal)
[2020-06-08 14:42] LABS: Squamous Epithelial Cells - UA 0-5 SEEN /hpf (5-10)
[2020-06-08 15:43] VITALS: BP 127/75; PULSE 78; RESP 18; O2SAT 94
== END 2020-06-08 15:44 | disposition home or self-care (01) ==
PROVIDERS: Emergency Provider Emergency Medicine; PCP Family Medicine
DX: R11.2 Nausea with vomiting, unspecified (principal); R10.9 Unspecified abdominal pain; K43.2 Incisional hernia without obstruction or gangrene; E11.9 Type 2 diabetes mellitus without complications; E78.5 Hyperlipidemia, unspecified; I10 Essential (primary) hypertension; Z90.49 Acquired absence of other specified parts of digestive tract; Z79.4 Long term (current) use of insulin; Z79.82 Long term (current) use of aspirin
CPT/HCPCS: 74177; 80053; 81001; 83690; 84484; 85025; 93005; 96374; 99284; J7030; Q9967; A4216; J2405

== ENCOUNTER 2020-06-13 22:51 | Observation (INO) | payer MEDICARE, SELFPAY ==
[2020-06-13 22:51] VITALS: BP 134/69; PULSE 83; RESP 16; TEMP 36.7; O2SAT 98; BMI 31.7
[2020-06-13] MEDS: Metoclopramide 10 MG/2 ML Vial IV (23:27)
[2020-06-13] MEDS: 0.9% Normal Saline 1,000 ML 1000 ML IV (23:27)
[2020-06-13 23:43] LABS: Absolute Lymphocyte Count 0.51 X10^3/uL (0.83-4.51); Absolute Neutrophil Count 10.6 X10^3/uL (2.0-7.7); Basophil# 0.03 X10^3/uL; Basophil% 0.3 % (0-1); Eosinophil# 0.01 X10^3/uL; Eosinophils% 0.1 % (0-5); Hemoglobin 14.5 g/dL (12.0-15.0); Lymphocyte # 0.51 X10^3/ul (4.0); Lymphocyte % 4.3 % (19-41); Mean Corp Hgb Conc 33.7 g/dL (32-36); Mean Corpuscular Hgb 28.7 pg (27.0-32.0); Mean Corpuscular Volume 85.1 fL (81-99); Monocyte# 0.48 X10^3/uL; NRBC Flagged by Analyzer 0 % (0-5); Neutrophil # 10.63 X10^3/uL (2.7-7.7); Neutrophil % 89.6 % (47-70); POSITIVE DIFFERENTIAL YES; Platelet Count 359 K/mm3 (150-450); RBC Distribution Width CV 13.1 % (11.6-14.6); RBC Distribution Width SD 40.2 fl (35.1-43.9); Red Blood Count 5.05 M/mm3 (4.2-5.4); White Blood Count 11.9 K/mm3 (4.4-11.0)
[2020-06-13 23:44] LABS: Differential Indicated SCAN CRITERIA MET
[2020-06-13 23:47] LABS: ALB/GLOB Ratio 0.7 RATIO (0.9-2.4); AST(SGOT) 14 U/L (15-37); Alanine Aminotransfer ALT/SGPT 8 U/L (13-56); Albumin, Serum 3.4 g/dL (3.2-5.0); Alkaline Phosphatase 104 U/L (45-117); Anion Gap 8 (5-15); BUN 11 mg/dL (7-18); BUN/Creat Ratio 10.7 RATIO (10-20); Chloride 89 mmol/L (98-107); Creatinine, Serum 1.03 mg/dL (0.55-1.02); EST Glomerular Filtration Rate 56 mL/min (>60); Est Glom Filt Rate - Afr Amer 67 mL/min (>60); Estimated Creatinine Clearance 40.75 ml/min; Globulin 4.6 g/dL (2.2-4.2); Glucose 259 mg/dL (74-106); Lipase 123 U/L (73-393); Potassium 3.9 mmol/L (3.5-5.1); Sodium Level 128 mmol/L (136-145)
[2020-06-14] VITALS (12 sets, daily range): BP systolic 129–150; BP diastolic 60–89; PULSE 68–89; RESP 14–18; TEMP 36.3–36.7; O2SAT 94–97; BMI 33.3; BMI 33.4
[2020-06-14 00:05] LABS: Lactic Acid 2.4 mmol/L (0.4-1.9)
--- NOTE | 2020-06-14 00:16 | ED.VIS.GI ---
History of Present Illness Chief Complaint: Nausea/Vomiting Narrative: Patient presenting for evaluation secondary to nausea and vomiting. Patient has an underlying history of colon cancer status post resection with an umbilical hernia. Patient has been dealing with persistent nausea and vomiting over the course of about the last week. This started last weekend, she was seen at her primary care referred to the emergency department had work-up including a CT with IV contrast, lab work and was discharged with antiemetics. Patient has continued to have nausea and vomiting. This has been mainly foamy, and yellow but has not been green and bilious or feculent. Patient does report that she has persistent nausea, she denies any diarrhea, she denies any fevers, she has intermittent crampy abdominal pain, but nothing continuous. Patient is continuing to have issues with tolerating fluids and food so she is representing to the emergency department for further evaluation. Past Medical History - Allergies and Home Meds Allergies/Adverse Reactions: Allergies codeine Allergy (Verified 06/13/20 22:53) hives Primary Care Physician: Prateek Cruz MD [Primary Care Provider] - Prior records reviewed: Yes Past Medical History: - - Diabetes, hypertension, hyperlipidemia, Parkinson's, past history of colon cancer Surgical History: cholecystectomy, colectomy Lives: With Family Smoking Status: Never smoker Alcohol: None Drugs: None Review of Systems All systems negative except as indicated General: Reports: Malaise, - - Difficulty walking Eyes: Denies: Visual changes - bilaterally, Diplopia ENT: Denies: Rhinorrhea, Sore throat Cardiovascular: Denies: Chest pain, Palpitations Respiratory: Denies: Dyspnea, Cough, Dyspnea on exertion Gastrointestinal: Reports: Abdominal pain, Nausea, Vomiting Genitourinary: Denies: Dysuria, Hematuria, Frequency Musculoskeletal: Denies: Back pain, Extremity Pain Skin: Denies: Rash, Wounds Neurological: Denies: Headache, Weakness, Numbness Physical Exam Vital Signs/Narrative: Vital Signs Temp Pulse Resp BP Pulse Ox 06/13/20 22:51 98.1 F 83 16 134/69 H 98 Inital Vital Signs reviewed: Yes General: Well nourished, Well developed, Obese, No Acute Distress Head: Normocephalic, Atraumatic Eyes: Perrl, EOMI ENT: No rhinorrhea, Dry mucous membranes Neck: Supple, Nontender Cardiovascular: Regular rate, Regular rhythm, No murmurs Respiratory: No distress, CTA bilaterally, Chest nontender Abdomen: Soft, Nontender, Nondistended, Normal bowel sounds, - - Large well-healed midline surgical scar. Reducible ventral hernia is noted. Back: Nontender, Normal Inspection Extremities: Nontender, No edema Skin: Normal color, No rash Neurological: Alert, Oriented x3, Cranial nerves II-XII grossly intact, Normal Strength, Normal Sensation Psychological: Normal affect, Normal Mood Diagnostic/Tx/Re-eval Clinical Impression(s) from Imaging Studies Abdomen/Pelvis CT 06/14/20 23:07 IMPRESSION: Mild mural thickening of some loops of jejunum, possibly representing an infectious or inflammatory enteritis. No evidence for bowel obstruction or ileus. Previous cholecystectomy. Previous sigmoid colon surgery. Umbilical hernia containing small bowel. No associated bowel obstruction or strangulation. Colonic diverticulosis, without evidence for acute diverticulitis. Atherosclerosis. Bilateral adrenal adenomas. Old granulomatous disease. No evidence for appendicitis. Electronically Signed: Meom Mayer MD at 2:08 EDT , Service support , Laboratory Data 06/13/20 06/13/20 06/13/20 23:22 23:22 23:22 WBC 11.9 H RBC 5.05 Hgb 14.5 Hct 43.0 MCV 85.1 MCH 28.7 MCHC 33.7 RDW Std Deviation 40.2 RDW Coeff of Damon 13.1 Plt Count 359 MPV 9.0 Immature Gran % (Auto) 1.700 H Neut % (Auto) 89.6 H Lymph % (Auto) 4.3 L [place] % (Auto) 4.0 Eos % (Auto) 0.1 Baso % (Auto) 0.3 Absolute Neuts (auto) 10.6 H Absolute Lymphs (auto) 0.51 L Nucleated RBC % 0 Sodium 128 L Potassium 3.9 Chloride 89 L Carbon Dioxide 31.0 Anion Gap 8 BUN 11 Creatinine 1.03 H Estim Creat Clear Calc 40.75 Est GFR (MDRD) Af Amer 67 Est GFR (MDRD) Non-Af 56 L BUN/Creatinine Ratio 10.7 Glucose 259 H Lactic Acid 2.4 H* Calcium 9.0 Total Bilirubin 1.10 H AST 14 L ALT 8 L Alkaline Phosphatase 104 Total Protein 8.0 Albumin 3.4 Globulin 4.6 H Albumin/Globulin Ratio 0.7 L Lipase 123 - Medical Decision Making Patient presented secondary to abdominal pain nausea and vomiting. She was seen a couple of days ago, had essentially negative work-up was discharged home with antiemetics. She is continuing to have vomiting so repeat work-up was obtained. Patient does have a slight elevation of her lactic acid and a slight elevation of her creatinine but no significant electrolyte derangements or leukocytosis indicating infection. Patient was able to tolerate p.o. contrast after IV fluids as well as Reglan. CT abdomen and pelvis was performed. Repeat evaluation of the patient at 0140 shows her to be feeling somewhat better and to actually be tolerating some p.o., she was able to take her Parkinson's medications. CT of the patient demonstrated some focal enteritis, no evidence of obstructive process. I reevaluated the patient, at this point she has had almost 8 days of symptoms and has not been getting better despite outpatient treatment I believe that she would benefit from admission for further work-up. Patient will be admitted under the hospitalist. ED Disposition - Plan for ED Patient: Disposition: Acute Care Hospital [facility] Diagnosis: Enteritis, Failure of outpatient treatment, Dehydration
[2020-06-14] MEDS: 0.9% Normal Saline 1,000 ML 999 ML IV (01:46)
--- NOTE | 2020-06-14 02:52 | HP.PCM_ITS ---
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 (9) Bilateral lower extremity edema Status: Chronic (10) Venous insufficiency of left lower extremity Status: Chronic (11) Diabetic ulcer of right lower leg Status: Chronic (12) Diabetic ulcer of left lower leg Status: Chronic (13) Hyponatremia Status: Acute (14) Syncope Status: Acute (15) History of colon cancer Status: Chronic (16) Hyperlipidemia Status: Chronic (17) Hypertension Status: Chronic (18) Type 2 diabetes mellitus Status: Chronic Qualifiers: Diabetes mellitus complication status: with skin complications Diabetes mellitus complication detail: with other skin ulcer History of Present Illness Date of Admission: 06/14/20 Chief Complaint: Nausea and vomiting for 7 days The patient is a 74 year old F with history of right-sided colon cancer status post resection, colostomy reversal 3 years ago came to ER with persistent nausea and vomiting for 1 week. On 06/08, patient went to see PCP who referred to ER. Patient was found dehydrated and was given IV fluid. CT abdomen was done which did not show anything acute. Patient was discharged home with antiemetics. Patient continued to have nausea and vomiting. She denies abdominal pain or cramps. Occasionally she feels abdominal discomfort. No fever or chills. She is not able to tolerate food or water therefore came to ER. In ED, no fever heart rate in the 80s. Blood pressure 136/60. Patient did not had fever or chills during previous ER visit on 06/08. Initial labs in the ER shows mild leukocytosis 11.9 thousand, neutrophil 89.6%. Sodium 128, K3.9. Creatinine 1.03. Lactic acid 2.4. Liver chemistry within normal limit. TB 1.1. CT abdomen without contrast shows mild mural thickening of some loops of jejunum probably inflammatory or infectious. No evidence of bowel obstruction or ileus. Past Medical History Past Medical History (Chronic Problems): Chronic Problems (Last Updated 04/08/20 @ 08:29 by Lina Enriquez) Hyperlipidemia (Chronic) Type 2 diabetes mellitus (Chronic) Essential hypertension (Chronic) Parkinson's disease (Chronic) 2012 Diabetic ulcer of lower leg (Chronic) Bilateral lower extremity edema (Chronic) Venous insufficiency of left lower extremity (Chronic) Diabetic ulcer of right lower leg (Chronic) Diabetic ulcer of left lower leg (Chronic) History of colon cancer (Chronic) Hyperlipidemia (Chronic) Hypertension (Chronic) Type 2 diabetes mellitus (Chronic) Medical History: Medical History (Last Updated 04/08/20 @ 08:29 by Lina Enriquez) Hyperlipidemia (Chronic) E78.5 Type 2 diabetes mellitus (Chronic) E11.9 Essential hypertension (Chronic) I10 Parkinson's disease (Chronic) G20 2012 Diabetic neuropathy E11.40 Diabetic retinopathy E11.319 History of colon cancer Z85.038 Allergies codeine Allergy (Verified 06/13/20 22:53) hives Home Medications: Ambulatory Orders Medication Instructions Recorded Rosuvastatin Calcium [Crestor] 5 mg PO QHS 08/05/13 Metoprolol Succinate 25 mg PO DAILY 03/15/19 amlodipine 5 mg tablet 5 mg PO BID tab 04/06/20 ascorbate calcium (vitamin C) 500 1,000 mg PO DAILY tab 04/06/20 mg tablet cholecalciferol (vitamin D3) 25 25 mcg PO DAILY 04/06/20 mcg (1,000 unit) capsule paroxetine HCl 30 mg tablet 30 mg PO DAILY 04/06/20 aspirin 81 mg tablet,delayed 81 mg PO DAILY@0800 04/08/20 release donepezil 10 mg tablet 10 mg PO QHS #30 tab 04/08/20 insulin glargine 100 unit/mL (3 40 unit SC QHS ml 04/08/20 mL) subcutaneous pen mecobalamin (vitamin B12) 1,000 1,000 mcg PO DAILY 04/08/20 mcg chewable tablet pramipexole 0.25 mg tablet 0.25 mg PO TID #90 tab 04/08/20 Carbidopa/Levodopa 25/100 [Sinemet 2 tab PO 4X/DAY 06/08/20 25/100] Lisinopril [Zestril] 20 mg PO BID 06/08/20 Metformin HCl [Metformin HCl ER] 500 mg PO BID 06/08/20 Ondansetron [Zofran Odt] 8 mg PO Q8H PRN PRN #20 tab 06/08/20 Pantoprazole Sodium [Protonix] 40 mg PO DAILY #14 tab 06/08/20 Surgical History: Surgical History (Last Updated 04/08/20 @ 08:23 by Lina Enriquez) H/O colectomy Z90.49 2002 History of cataract surgery Z98.49 07/2011, 08/2011 History of cholecystectomy Z90.49 1994 Surgical History: cholecystectomy, colectomy Psychiatric History: Depression 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 Denies: Chills, Fever, Weight Change HEENT: Denies: Head Aches, Sinus Congestion, Sinus Drainage Cardiovascular: Denies: Chest Pain, Palpitations Respiratory: Denies: Cough, Shortness of breath at rest, Sputum production Gastrointestinal: Reports: Nausea, Vomiting, - - Chronic mild loose bowel movement after right-sided colectomy. Denies: Abdominal Pain, Hematemesis, Hematochezia, Melena Genitourinary: Denies: Dysuria, Frequency, Hematuria, Hesitancy Musculoskeletal: Reports: Joint Pain. Denies: Joint Tenderness Skin: Denies: Rash, Wounds Neurological: Reports: Balance problems, Incoordination. Denies: Focal weakness, Numbness, Tingling Psychiatric: Denies: Anxiety, Depression, Homicidal Ideations, Suicidal Ideatio ns Hematologic/ Lymphatic: Denies: Easy Bruising, Easy Bleeding VTE Information - Inpt Only VTE Present on Admission: No VTE Mechan Device Prophylaxis: None VTE Pharm Prophylaxis ordered?: Yes Patient Problems: Active and Suspected Problems (Last Updated 04/08/20 @ 08:29 by Lina Enriquez) Enteritis (Acute) Failure of outpatient treatment (Acute) Dehydration (Acute) Objective: General: Alert, Oriented x3, Cooperative HEENT: Atraumatic, PERRLA, EOMI, Normocephalic Oral: Oral mucosa is dry. No Gingival or Mucosal Lesions/ Ulcerations Neck: Supple, No JVD, Negative Carotid Bruits Lungs: Air entry diminished in bilateral lung bases. No crepitation/rhonchi Cardiovascular: Regular rate, Regular Rhythm, Normal S1, Normal S2, No murmurs Abdomen: Bowel Sounds Present, Soft, Non Tender, Non-Distended. Small umbilical hernia. No palpable mass. No rebound tenderness. : No renal angle tenderness. No suprapubic tenderness. Extremities: No edema, Capillary Refill Less than 3 Seconds Skin: No rashes, No breakdown Musculoskeletal: No Tenderness to Palpation of Joints or Extremities Neurological: Muscle tone normal at major joints. Cranial nerves II-XII grossly intact, Deep Tendon Reflexes 2+/4. Psych/Mental Status: Normal Affect, Appropriate. - Physical Exam Vitals/I&O's: Vital Signs Temp Pulse Resp BP Pulse Ox 97.9 F 89 18 136/60 H 94 06/14/20 02:49 06/14/20 02:49 06/14/20 02:49 06/14/20 02:49 06/14/20 02:49 Oxygen Delivery Method Room Air Weight: 185 lb Body Mass Index (BMI) 31.7 Intake and Output for Last 24 Hours 06/12/20 06/13/20 06/14/20 22:59 23:59 23:59 Intake Total 1999 Balance 1999 Laboratory Results 06/13/20 23:22: WBC 11.9 H, RBC 5.05, Hgb 14.5, Hct 43.0, MCV 85.1, MCH 28.7, MCHC 33.7, RDW Std Deviation 40.2, RDW Coeff of Damon 13.1, Plt Count 359, MPV 9.0, Immature Gran % (Auto) 1.700 H, Neut % (Auto) 89.6 H, Lymph % (Auto) 4.3 L, Bonner % (Auto) 4.0, Eos % (Auto) 0.1, Baso % (Auto) 0.3, Absolute Neuts (auto) 10.6 H, Absolute Lymphs (auto) 0.51 L, Nucleated RBC % 0 06/13/20 23:22: Sodium 128 L, Potassium 3.9, Chloride 89 L, Carbon Dioxide 31.0, Anion Gap 8, BUN 11, Creatinine 1.03 H, Estim Creat Clear Calc 40.75, Est GFR (MDRD) Af Amer 67, Est GFR (MDRD) Non-Af 56 L, BUN/Creatinine Ratio 10.7, Glucose 259 H, Calcium 9.0, Total Bilirubin 1.10 H, AST 14 L, ALT 8 L, Alkaline Phosphatase 104, Total Protein 8.0, Albumin 3.4, Globulin 4.6 H, Albumin/Globulin Ratio 0.7 L, Lipase 123 06/13/20 23:22: Lactic Acid 2.4 H* Assessment/Plan All Active Problems (Last Updated 04/08/20 @ 08:29 by Lina Enriquez) Enteritis (Acute) Failure of outpatient treatment (Acute) Dehydration (Acute) Hyponatremia (Acute) Syncope (Acute) The patient is a 74 year old F with history of right-sided colon cancer status post resection, colostomy reversal 3 years ago came to ER with persistent nausea and vomiting for [address] abdomen shows mild localized inflammatory/infectious enteritis 1. Acute infectious/inflammatory enteritis probably viral with lactic acidosis most probably due to dehydration/hypovolemia: Patient is being admitted in PCU. Had 2 L of normal saline bolus in ER. Fluid bolus as per 30 mL/kg body weight. IV fluid normal saline 500 mill bolus and then 100 mill per hour to continue. Monitor intake and output. I think, lactic acidosis mainly due to hypovolemia and Metformin. Hold Metformin. Stool for enteric pathology panel, C. difficile, occult blood and leukocytes ordered. Clear liquid diet. Infectious work-up with blood cultures x2, UA and urine culture ordered. Patient does not have fever or chills, no abdominal pain or tenderness therefore no acute indication for antibiotics. Monitor for signs of sepsis. Probiotic ordered. 2. Colon cancer status post right colectomy and colostomy reversal 3 years ago: Patient had colonoscopy by Dr. Velez in 10/2017 and as per patient's daughter verbally it was normal. 3. Acute on chronic hypovolemic hyponatremia: Patient seems chronic hyponatremia, sodium around 128-130. Patient is on IV fluid. Monitor electrolytes, kidney function tomorrow a.m. 4. Diabetes type 2: Accu-Chek before meals and at bedtime and cover with Humalog sliding scale. 5. Hypertension, dyslipidemia: Home medication reconciliation done. Blood pressure is normal for age 136/60. Hold antihypertensive for 1 day and may resume later as patient is clinically dehydrated. 6. Parkinson's disease: Patient on pramipexole, Sinemet. Continued VTE prophylaxis: Lovenox 40 mg subcu daily. Discontinue if platelet count drops less than 50,000 or hemoglobin less than 8 g% Living will/advanced directive/end of life care: Patient does not have living will or advanced directive. Her daughter is in the process of making advanced directive and power of civil attorney for health. After discussion of benefits/risks procedures involved with full code, DNR CC arrest and DNR CC, the patient and her daughter opted for DNR-CC Arrest with no intubation Patient does not want artificial life support including intubation, tube feed, ventilator and/chest compression, central venous catheter, vasopressor and DC shock if needed Total time spent in ceyb-ab-efgo encounter in discussion of advanced directive 16 minutes. Clinical Impression(s) from Imaging Studies Abdomen/Pelvis CT 06/14/20 23:07 IMPRESSION: Mild mural thickening of some loops of jejunum, possibly representing an infectious or inflammatory enteritis. No evidence for bowel obstruction or ileus. Previous cholecystectomy. Previous sigmoid colon surgery. Umbilical hernia containing small bowel. No associated bowel obstruction or strangulation. Colonic diverticulosis, without evidence for acute diverticulitis. Atherosclerosis. Bilateral adrenal adenomas. Old granulomatous disease. No evidence for appendicitis. Laboratory Results 06/13/20 23:22: WBC 11.9 H, RBC 5.05, Hgb 14.5, Hct 43.0, MCV 85.1, MCH 28.7, MCHC 33.7, RDW Std Deviation 40.2, RDW Coeff of Damon 13.1, Plt Count 359, MPV 9.0, Immature Gran % (Auto) 1.700 H, Neut % (Auto) 89.6 H, Lymph % (Auto) 4.3 L, Bonner % (Auto) 4.0, Eos % (Auto) 0.1, Baso % (Auto) 0.3, Absolute Neuts (auto) 10.6 H, Absolute Lymphs (auto) 0.51 L, Nucleated RBC % 0 06/13/20 23:22: Sodium 128 L, Potassium 3.9, Chloride 89 L, Carbon Dioxide 31.0, Anion Gap 8, BUN 11, Creatinine 1.03 H, Estim Creat Clear Calc 40.75, Est GFR (MDRD) Af Amer 67, Est GFR (MDRD) Non-Af 56 L, BUN/Creatinine Ratio 10.7, Glucose 259 H, Calcium 9.0, Total Bilirubin 1.10 H, AST 14 L, ALT 8 L, Alkaline Phosphatase 104, Total Protein 8.0, Albumin 3.4, Globulin 4.6 H, Albumin/Globulin Ratio 0.7 L, Lipase 123 06/13/20 23:22: Lactic Acid 2.4 H* Inpatient E&M: 34213 Init Hosp L3 Procedures: 38178 Advncd Care Plan 30 Min
[2020-06-14 03:27] LABS: Reflex Lactate? Y
[2020-06-14 03:52] LABS: Absolute Lymphocyte Count 0.59 X10^3/uL (0.83-4.51); Absolute Neutrophil Count 10.2 X10^3/uL (2.0-7.7); Basophil# 0.03 X10^3/uL; Basophil% 0.3 % (0-1); Differential Indicated SCAN CRITERIA MET; Eosinophil# 0.17 X10^3/uL; Eosinophils% 1.5 % (0-5); Hematocrit 43.1 % (37-47); Hemoglobin 14.1 g/dL (12.0-15.0); Lymphocyte # 0.59 X10^3/ul (4.0); Lymphocyte % 5.1 % (19-41); Mean Corp Hgb Conc 32.7 g/dL (32-36); Mean Corpuscular Hgb 28.3 pg (27.0-32.0); Mean Corpuscular Volume 86.4 fL (81-99); Monocyte% 4.4 % (0-10); NRBC Flagged by Analyzer 0 % (0-5); Neutrophil # 10.15 X10^3/uL (2.7-7.7); Neutrophil % 88.4 % (47-70); POSITIVE DIFFERENTIAL YES; POSITIVE MORPHOLOGY YES; Platelet Count 368 K/mm3 (150-450); RBC Distribution Width SD 40.3 fl (35.1-43.9); Red Blood Count 4.99 M/mm3 (4.2-5.4); White Blood Count 11.5 K/mm3 (4.4-11.0)
[2020-06-14] MEDS: Enoxaparin 40 MG/0.4 ML Syringe SC (04:10)
[2020-06-14 04:11] LABS: Anion Gap 9 (5-15); BUN 8 mg/dL (7-18); BUN/Creat Ratio 9.1 RATIO (10-20); Calcium,Total 8.1 mg/dL (8.5-10.1); Chloride 92 mmol/L (98-107); Creatinine, Serum 0.88 mg/dL (0.55-1.02); EST Glomerular Filtration Rate 66 mL/min (>60); Est Glom Filt Rate - Afr Amer 80 mL/min (>60); Estimated Creatinine Clearance 43.69 ml/min; Glucose 205 mg/dL (74-106); Potassium 2.9 mmol/L (3.5-5.1); Sodium Level 128 mmol/L (136-145)
[2020-06-14] MEDS: 0.9% Normal Saline 1,000 ML 100 ML IV (04:11)
[2020-06-14 04:14] LABS: Magnesium 0.9 mg/dL (1.6-2.6)
[2020-06-14 04:16] LABS: Lactic Acid 2.1 mmol/L (0.4-1.9)
[2020-06-14] MEDS: Potassium Chloride 10mEq/100mL 10 MEQ/100 ML IV.SOLN. 100 MEQ IV BOLUS ×4 (04:42→08:45)
[2020-06-14 05:07] LABS: Bacteria 0 SEEN /hpf (None Seen); Mucous, Urine 0 SEEN /hpf (<or=2+); Squamous Epithelial Cells - UA 0 SEEN /hpf (5-10); White Blood Cells 0 SEEN /hpf (0-5)
[2020-06-14 05:08] LABS: Color, Urine Yellow (Yellow); Glucose, Dipstick Normal (Normal); Ketone-Dipstick 15 mg/dl (Negative); Leukocyte Esterase-Dipstick Negative /ul (Negative); Nitrite-Dipstick Negative (Negative); Occult Blood-Urine 10 /ul (Negative); Protein-Dipstick 100 mg/dl (Negative); Urine Bilirubin Dipstick Negative (Negative); Urine Clarity Clear (Clear); Urine Urobilinogen Normal (Normal)
[2020-06-14 05:14] LABS: Red Blood Cells-Urine 0-5 SEEN /hpf (0-5)
[2020-06-14] MEDS: 0.9% Saline Lock 10 ML Syringe IV (05:17)
[2020-06-14] MEDS: Pramipexole Di-HCl 0.25 MG Tablet PO ×3 (06:08→21:40)
[2020-06-14] MEDS: Carbidopa/Levodopa 25/100 Tablet PO ×4 (06:08→21:40)
[2020-06-14] MEDS: Aspirin E.C. 81 MG Tablet PO (08:46)
[2020-06-14] MEDS: amLODIPine 5 MG Tablet PO ×2 (08:47→21:41)
[2020-06-14] MEDS: Pantoprazole Sodium 40 MG Tablet PO (08:48)
[2020-06-14] MEDS: PARoxetine 10 MG Tablet 30 MG PO (08:48)
[2020-06-14] MEDS: Cyanocobalamin 500 MCG Tablet 1000 MCG PO (08:49)
[2020-06-14] MEDS: Metoprolol(XL)Succ 25 MG Tablet PO (08:49)
[2020-06-14 09:30] LABS: Bedside Glucose 175 mg/dL (70-110)
[2020-06-14 13:03] LABS: Anion Gap 5 (5-15); BUN 5 mg/dL (7-18); BUN/Creat Ratio 6.8 RATIO (10-20); Calcium,Total 8.4 mg/dL (8.5-10.1); Chloride 93 mmol/L (98-107); Creatinine, Serum 0.74 mg/dL (0.55-1.02); EST Glomerular Filtration Rate 82 mL/min (>60); Est Glom Filt Rate - Afr Amer 99 mL/min (>60); Estimated Creatinine Clearance 38.44 ml/min; Glucose 188 mg/dL (74-106); Magnesium 1.9 mg/dL (1.6-2.6); Potassium 3.6 mmol/L (3.5-5.1); Sodium Level 129 mmol/L (136-145)
[2020-06-14 13:07] LABS: Lactic Acid 1.3 mmol/L (0.4-1.9)
--- NOTE | 2020-06-14 13:16 | CASEMGMT ---
Social Work Consult: Advanced Care Planning Informant: Patient and patient daughter, Lizz Met with patient and Lizz in room. Introduced self and social media assistant role. Patient agreeable to speak with this social media assistant and provided verbal permission for this social media assistant to speak openly with Lizz present. Patient and Lizz confirm interest in having advanced care planning documents completed. This social media assistant having advanced care planning discussion with patient and Lizz. Health Care Power of employment law attorney and Living Will documents completed with patient. Lizz has been nominated as HCPOA. Copy of documents placed on patient chart and originals provided to patient. Patient currently lives with Lizz. Unsure of discharge plan currently. Genesis HONG, BHUMI
--- NOTE | 2020-06-14 15:26 | CASEMGMT ---
This RN CM attempted to complete CM assessment at this time but pt is sleeping without distress and does not awaken to verbal stimuli or knock on door at this time. This RN CM then attempted to call daughter, Lizz Campos, who provides care for pt and she does not answer at this time. This RN CM to f/u with pt/daughter tomorrow for assessment/discharge plan. [facility] [place] CM
--- NOTE | 2020-06-14 16:02 | CASEMGMT ---
GEORGE ANTOINE assessment: Phone interview with patient's daughter for initial transition planning/care coordination assessment as pt is sleeping at this time and daughter provides care for pt at home. GEORGE ANTOINE introduced self and role at [facility], daughter voices understanding and consents to assessment. Pt is sleeping without distress. Daughter answers all questions appropriately at this time. Care providers, pharmacy, and demographics verified. Presentation: N/V since sunday last week, increased weakness. pt can't keep anything down Admitting dx: Infectious enteritis PCP: Anthony Specialists: cristina Diego Preferred [facility]acy: [facility] Prescription Benefit[place] [facility] [place] Living Will/HPOA: Pt completed AD's today with Neo CEVALLOS and they are now on file at [facility] at this time. Pt made her daughter, Lizz CamposSU. LNOK: Lizz Campos, daughter/HPOA Living Arrangements: Pt lives with daughter/son-in-law and daughter cares for pt with most ADL's and is with pt 23/10. Transportation: Family drives and states no transportation concerns at this time. DME/HHC: Daughter states pt has the following DME: rollator, hospital bed, shower chair, and BSC. Per daughter, they only have tubs at home and they sponge bathe pt with bath wipes. Daughter states pt uses the rollator all the time. Daughter states no hx of HHC or SNF. Daughter states no concerns with pt going home at time of discharge. Pt is retired. Pt does not smoke cigarettes or drink ETOH. Daughter voices no further concerns/needs. CM to follow PT/OT notes and for any further discharge planning/needs. Advised daughter to ask for CM if any further questions/concerns/needs arise, voices understanding. Pt/daughter Goal: Home Plan: Home w/ family support [place] GEORGE ANTOINE
[2020-06-14 21:40] LABS: Bedside Glucose 220 mg/dL (70-110)
[2020-06-14] MEDS: Atorvastatin Calcium 10 MG Tablet PO (21:41)
[2020-06-14] MEDS: Donepezil HCl 10 MG Tablet PO (21:41)
[2020-06-14] MEDS: Nystatin Powder 15gm Bottle 1 APPLIC TOPICAL (21:41)
--- NOTE | 2020-06-14 23:07 | CT_ITS ---
STUDY: CT ABDOMEN AND PELVIS WITH CONTRAST REASON FOR EXAM: Female, 74 years old. sbo -- n/v since last Sunday, increased weakness, unable to keep anything down, seen last week with CT for same, hx pt colectomy due to colon ca, parkinsons, diab, htn RADIATION DOSAGE (If Supplied By Facility): CTDIvol = ( 15.56 ) mGy, DLP = ( 1064.49 ) mGycm TECHNIQUE: Transaxial images were obtained from the dome of the diaphragm to the symphysis pubis with oral contrast. Oral and amp; IV Gastrografin and amp; 100mL Isovue-370 was administered. Sagittal and coronal images were reconstructed. Individualized dose optimization techniques were used for this CT. COMPARISON: CT scan 06/08/2020 and 05/04/2012. FINDINGS: There are calcified granulomas in the right hilum and in the visualized right lower lobe. There are mild fibrotic changes in the visualized lung bases. The visualized portions of the heart are within normal limits. There are coronary artery calcifications. There are calcified granulomas in the liver and spleen. There are surgical clips in the gallbladder fossa consistent with a prior cholecystectomy.. Normal pancreas. There are stable adrenal nodules bilaterally, consistent with adenomas. Normal right kidney. Normal left kidney. Grossly normal visualized stomach. Assessment of the stomach is limited by nondistention.. There is mild mural thickening of loops of jejunum. There is no evidence for small bowel obstruction or ileus. There is an anastomotic site at the sigmoid-rectal junction, suggesting a previous partial sigmoid colon resection. There are multiple colonic diverticula consistent with diverticulosis. The appendix is seen on axial images 70-75 and it appears normal. There is diffuse atherosclerotic calcification of the abdominal aorta, without a demonstrated aneurysm. Normal inferior vena cava. Normal retroperitoneum. Normal urinary bladder. There is a large broad-based umbilical hernia which contains fat as well as a loop of ileum. There is no associated bowel obstruction or strangulation. There are diffuse degenerative changes of the visualized lumbar spine. There is grade 1 anterolisthesis at the L4-5 level, on a degenerative basis. CT/Abdomen/Pelvis WITH Contrast IMPRESSION: Mild mural thickening of some loops of jejunum, possibly representing an infectious or inflammatory enteritis. No evidence for bowel obstruction or ileus. Previous cholecystectomy. Previous sigmoid colon surgery. Umbilical hernia containing small bowel. No associated bowel obstruction or strangulation. Colonic diverticulosis, without evidence for acute diverticulitis. Atherosclerosis. Bilateral adrenal adenomas. Old granulomatous disease. No evidence for appendicitis. Electronically Signed: Memo Mayer MD at 2:08 EDT , Service support ,
[2020-06-15] VITALS (10 sets, daily range): BP systolic 142–160; BP diastolic 64–75; PULSE 71–94; RESP 16–18; TEMP 35.4–36.9; O2SAT 94–95
[2020-06-15] MEDS: 0.9% Saline Lock 10 ML Syringe IV (01:39)
[2020-06-15] MEDS: Ondansetron 4 MG/2 ML Vial IV (01:39)
[2020-06-15] MEDS: Carbidopa/Levodopa 25/100 Tablet PO ×4 (06:04→21:55)
[2020-06-15] MEDS: Nystatin Powder 15gm Bottle 1 APPLIC TOPICAL ×3 (06:04→21:56)
[2020-06-15] MEDS: Pramipexole Di-HCl 0.25 MG Tablet PO ×3 (06:04→21:55)
[2020-06-15 06:58] LABS: Absolute Lymphocyte Count 0.56 X10^3/uL (0.83-4.51); Absolute Neutrophil Count 8.9 X10^3/uL (2.0-7.7); Basophil# 0.02 X10^3/uL; Basophil% 0.2 % (0-1); Eosinophil# 0.01 X10^3/uL; Eosinophils% 0.1 % (0-5); Hematocrit 42.9 % (37-47); Hemoglobin 14.2 g/dL (12.0-15.0); Lymphocyte # 0.56 X10^3/ul (4.0); Lymphocyte % 5.5 % (19-41); Mean Corp Hgb Conc 33.1 g/dL (32-36); Mean Corpuscular Hgb 27.8 pg (27.0-32.0); Mean Corpuscular Volume 84.1 fL (81-99); Mean Platelet Vol. 9.2 fl (6.2-12.0); Monocyte# 0.69 X10^3/uL; Monocyte% 6.8 % (0-10); NRBC Flagged by Analyzer 0 % (0-5); Neutrophil # 8.89 X10^3/uL (2.7-7.7); POSITIVE DIFFERENTIAL YES; Platelet Count 409 K/mm3 (150-450); RBC Distribution Width SD 39.8 fl (35.1-43.9); White Blood Count 10.2 K/mm3 (4.4-11.0)
[2020-06-15 07:03] LABS: Differential Indicated SCAN CRITERIA MET
[2020-06-15 07:19] LABS: Atypical Lymphocyte 1+ %; Differential Comment SCANNED
[2020-06-15 07:26] LABS: Anion Gap 7 (5-15); BUN 5 mg/dL (7-18); BUN/Creat Ratio 6.9 RATIO (10-20); Calcium,Total 8.5 mg/dL (8.5-10.1); Chloride 90 mmol/L (98-107); Creatinine, Serum 0.72 mg/dL (0.55-1.02); EST Glomerular Filtration Rate 83 mL/min (>60); Est Glom Filt Rate - Afr Amer 101 mL/min (>60); Estimated Creatinine Clearance 38.44 ml/min; Glucose 178 mg/dL (74-106); Sodium Level 128 mmol/L (136-145)
[2020-06-15] MEDS: Potassium Chloride Oral Tablet 20 MEQ 60 MEQ PO (09:02)
[2020-06-15] MEDS: Aspirin E.C. 81 MG Tablet PO (09:02)
[2020-06-15] MEDS: Pantoprazole Sodium 40 MG Tablet PO (09:04)
[2020-06-15] MEDS: Metoprolol(XL)Succ 25 MG Tablet PO (09:04)
[2020-06-15] MEDS: amLODIPine 5 MG Tablet PO ×2 (09:04→21:55)
[2020-06-15] MEDS: Cyanocobalamin 500 MCG Tablet 1000 MCG PO (09:05)
[2020-06-15] MEDS: PARoxetine 10 MG Tablet 30 MG PO (09:05)
[2020-06-15] MEDS: Enoxaparin 40 MG/0.4 ML Syringe SC (09:06)
--- NOTE | 2020-06-15 11:03 | CASEMGMT ---
It was relayed to SW that patient and family would like placement for patient. MART printed a list of SNF providers including quality and resource use data and consistent with the patient?s preferred geographic region, medical needs, and insurance network. SW went to patient's room. Introduced self and role at [facility]. SW explained to patient that it is being recommended she go somewhere for rehab. She said she agrees and so does her daughter whom she just spoke with. SW asked her if she knows where she would like to go. She did not know and she would like SW to call her daughter. SW spoke with patient's daughter. SW went over with her the list of SNF's that are in network with patient's insurance. Her first choice is [facility], second is [facility], and third is [facility]. SW answered her questions. SW let her know she likely will not be discharged today as she will wait here until insurance gets back to us. SW told her SW will let her know what SW finds out from facilities. Robyn LAYTON MSW
--- NOTE | 2020-06-15 11:24 | CASEMGMT ---
MART called [facility] regarding referral. MART also faxed clinicals to [facility]. Await their response. Robyn LAYTON MSW
--- NOTE | 2020-06-15 12:28 | CASEMGMT ---
MART received a call from Arline at [facility]. She said she only got a copy of patient's insurance cards. MART split the fax into 2 separate faxes in order to make the faxes shorter and re-faxed documents. Robyn LAYTON MSW
--- NOTE | 2020-06-15 14:43 | CASEMGMT ---
Pt qualifies for a palliative c/s per [facility] palliative screening tool and Dr. Kaplan is agreeable to c/s at this time. Referral faxed to Palliative and call placed to notify them of referral. Grisel VAZQUEZ CM
--- NOTE | 2020-06-15 14:51 | CASEMGMT ---
Addendum entered by Robyn Roberts 06/15/20 15:43: SW received a return call from patient's daughter. SW answered her questions. SW also notified patient. Robyn HONG Original Note: MART received a call from Arline at [facility]. They can accept patient and she will start the pre-cert. SW left a message for patient's daughter. SW also let patient know. Plan: [facility] pending pre-cert Robyn HONG
--- NOTE | 2020-06-15 16:54 | PCM.PN.HOSP ---
Patient Problems: Active and Suspected Problems (Last Updated 04/08/20 @ 08:29 by Lina Enriquez) Enteritis (Acute) Failure of outpatient treatment (Acute) Dehydration (Acute) Hyponatremia (Acute) Syncope (Acute) Subjective: Has some nausea but denies any emesis. I discussed the case with her daughter who felt that her mother might do better with short stay in a rehab unit prior to discharging home. When the patient is healthy she needs a decent amount of how for ambulation and to get out of bed. However since she has been sick for the last several days her weakness has significantly worsened and in light of her Parkinson's disease and the daughter felt that she would not be able to get her out of bed given how weak her mother has become. Vitals/I&O's: Vital Signs Temp Pulse Resp BP Pulse Ox 95.7 F L 80 18 160/75 H 94 06/15/20 16:00 06/15/20 16:00 06/15/20 16:00 06/15/20 16:00 06/15/20 16:00 Oxygen Delivery Method Room Air Weight: 182 lb 8.684 oz Body Mass Index (BMI) 33.3 Intake and Output for Last 24 Hours 06/13/20 06/14/20 06/15/20 23:59 23:59 23:59 Intake Total 4187.00 / 4307.00 360 / 360 Output Total 750 / 750 200 / 200 Balance 3437.00 / 3557.00 160 / 160 General: Alert, Oriented x3, Cooperative, No apparent distress HEENT: Atraumatic, PERRLA, EOMI, Normocephalic Oral: Moist Mucosa Neck: Supple, No JVD Lungs: Normal air movement, No rhonchi, No wheeze, No rales, Diminished Cardiovascular: Regular rate, Regular Rhythm, Normal S1, Normal S2, No murmurs Abdomen: Soft, Non Tender, Non-Distended, No Hepato-splenomegaly Extremities: No edema, Capillary Refill Less than 3 Seconds Skin: No rashes, No breakdown Neurological: Neuro grossly intact, Sensory exam intact to light touch and pain, - - Chronic lower extremity tremor Psych/Mental Status: Normal Affect, Appropriate Microbiology Past 72 Hours 06/14/20 05:00 Urine, Random Urine Culture - Final Mixed Gram Pos & Gram Neg Org Laboratory Results 06/14/20 21:35: POC Glucose 220 H 06/15/20 06:35: WBC 10.2, RBC 5.10, Hgb 14.2, Hct 42.9, MCV 84.1, MCH 27.8, MCHC 33.1, RDW Std Deviation 39.8, RDW Coeff of Damon 13.0, Plt Count 409, MPV 9.2, Immature Gran % (Auto) 0.400, Neut % (Auto) 87.0 H, Lymph % (Auto) 5.5 L, Weber % (Auto) 6.8, Eos % (Auto) 0.1, Baso % (Auto) 0.2, Absolute Neuts (auto) 8.9 H, Absolute Lymphs (auto) 0.56 L, Nucleated RBC % 0, Differential Comment SCANNED, Atypical Lymphocytes 1+ 06/15/20 06:35: Sodium 128 L, Potassium 3.0 L, Chloride 90 L, Carbon Dioxide 31.0, Anion Gap 7, BUN 5 L, Creatinine 0.72, Estim Creat Clear Calc 38.44, Est GFR (MDRD) Af Amer 101, Est GFR (MDRD) Non-Af 83, BUN/Creatinine Ratio 6.9 L, Glucose 178 H, Calcium 8.5 Current Medications Acetaminophen (Acetaminophen 325 Mg Tablet) 650 mg PO Q6H PRN PRN PRN Reason: Pain Score 1-10/Temp > 100.7 F Amlodipine Besylate (Amlodipine 5 Mg Tablet) 5 mg PO BID [facility] Last Admin: 06/15/20 09:04 Dose: 5 mg Documented by: Aspirin (Aspirin E.C. 81 Mg Tablet) 81 mg PO DAILY@0800 [facility] Last Admin: 06/15/20 09:02 Dose: 81 mg Documented by: Atorvastatin Calcium (Atorvastatin Calcium 10 Mg Tablet) 10 mg PO QHS [facility] Last Admin: 06/14/20 21:41 Dose: 10 mg Documented by: Carbidopa/Levodopa (Carbidopa/Levodopa 25/100 Tablet) 2 tablet PO [facility] Last Admin: 06/15/20 16:31 Dose: 2 tablet Documented by: Cyanocobalamin (Cyanocobalamin 500 Mcg Tablet) 1,000 mcg PO DAILY [facility] Last Admin: 06/15/20 09:05 Dose: 1,000 mcg Documented by: Donepezil HCl (Donepezil Hcl 10 Mg Tablet) 10 mg PO QHS [facility] Last Admin: 06/14/20 21:41 Dose: 10 mg Documented by: Enoxaparin Sodium (Enoxaparin 40 Mg/0.4 Ml Syringe) 40 mg SC DAILY [facility] Last Admin: 06/15/20 09:06 Dose: 40 mg Documented by: Insulin Glargine (Insulin Glargine 100 Units/Ml Pen) 30 units SC QHS [facility] Last Admin: 06/14/20 21:37 Dose: 30 units Documented by: Lactobacillus Acidophilus (Lactobacillus Acidophilus) 1 tablet PO BID [facility] Last Admin: 06/15/20 09:03 Dose: 1 tablet Documented by: Melatonin (Melatonin 3 Mg Tablet) 3 mg PO QHS PRN PRN PRN Reason: INSOMNIA Metoprolol Succinate (Metoprolol(Xl)Succ 25 Mg Tablet) 25 mg PO DAILY [facility] Last Admin: 06/15/20 09:04 Dose: 25 mg Documented by: Morphine Sulfate (Morphine 2 Mg/Ml Syringe) 2 mg IV Q3H PRN PRN PRN Reason: Pain Score 6-10 Nitroglycerin (Nitroglycerin (Inpatient Use) 0.4 Mg Tab.Subl) 0.4 mg SL Q5M PRN PRN Reason: CARDIAC/CHEST PAIN Nystatin (Nystatin Powder 15gm Bottle) 1 applic TOPICAL TID [facility]; Protocol Last Admin: 06/15/20 12:16 Dose: 1 applic Documented by: Ondansetron HCl (Ondansetron 4 Mg/2 Ml Vial) 4 mg IV Q8H PRN PRN PRN Reason: NAUSEA/VOMITING Last Admin: 06/15/20 01:39 Dose: 4 mg Documented by: Oxycodone HCl (Oxycodone 5 Mg Tablet) 5 mg PO Q4H PRN PRN PRN Reason: Pain Score 4-5 Pantoprazole Sodium (Pantoprazole Sodium 40 Mg Tablet) 40 mg PO DAILY [facility] Last Admin: 06/15/20 09:04 Dose: 40 mg Documented by: Paroxetine HCl (Paroxetine 10 Mg Tablet) 30 mg PO DAILY [facility] Last Admin: 06/15/20 09:05 Dose: 30 mg Documented by: Pramipexole Dihydrochloride (Pramipexole Di-Hcl 0.25 Mg Tablet) 0.25 mg PO TID [facility] Last Admin: 06/15/20 12:15 Dose: 0.25 mg Documented by: Prochlorperazine Edisylate (Prochlorperazine 10 Mg/2 Ml Vial) 5 mg IV Q4H PRN PRN PRN Reason: Breakthrough Nausea/Vomiting Senna/Docusate Sodium (Senna/Docusate Sodium 1 Tablet) 2 tablet PO BID PRN PRN PRN Reason: Constipation Sodium Chloride (0.9% Saline Lock 10 Ml Syringe) 10 - 40 ml IV UD PRN PRN Reason: SALINE FLUSH Last Admin: 06/15/20 01:39 Dose: 10 ml Documented by: STROKE Vital Signs/Narrative: Vital Signs Temp Pulse Resp BP Pulse Ox 06/15/20 16:00 95.7 F L 80 18 160/75 H 94 Medical Necessity - Tobacco Use Smoking Status: Never smoker Assessment/Plan All Active Problems (Last Updated 04/08/20 @ 08:29 by Lina Enriquez) Enteritis (Acute) Failure of outpatient treatment (Acute) Dehydration (Acute) Hyponatremia (Acute) Syncope (Acute) 1. Viral gastritis with dehydration/debility/hypovolemic hyponatremia -She received IV fluids and her creatinine improved. She is now hyponatremic and her potassium will be replaced at 3 -She denies any diarrhea and has not had any emesis -We will advance her diet and see how she tolerates -PT/OT evaluating for possible placement 2. DM 2 -Continue with sliding scale and long-acting insulin, hold Metformin -Accu-Cheks AC at bedtime, make adjustments as necessary 3. HTN/HLD -Blood pressure is stable -Continue with metoprolol and Norvasc, continue to hold lisinopril until taking p.o. -Continue with Crestor 4. Parkinson's disease/depression -Stable -Continue with Sinemet and pramipexole -Continue with Paxil 5. GERD -Stable -Continue PPI VTE: Lovenox Inpatient E&M: 47764 Subs Hosp L2
[2020-06-15] MEDS: Atorvastatin Calcium 10 MG Tablet PO (21:55)
[2020-06-15] MEDS: Donepezil HCl 10 MG Tablet PO (21:56)
[2020-06-15 22:15] LABS: Bedside Glucose 134 mg/dL (70-110)
[2020-06-16] VITALS (10 sets, daily range): BP systolic 110–136; BP diastolic 58–63; PULSE 74–88; RESP 14–16; TEMP 36.6–36.8; O2SAT 93–96
[2020-06-16 06:23] LABS: Anion Gap 4 (5-15); BUN 8 mg/dL (7-18); BUN/Creat Ratio 11.5 RATIO (10-20); Calcium,Total 8.8 mg/dL (8.5-10.1); Chloride 94 mmol/L (98-107); EST Glomerular Filtration Rate 87 mL/min (>60); Est Glom Filt Rate - Afr Amer 105 mL/min (>60); Estimated Creatinine Clearance 38.44 ml/min; Glucose 96 mg/dL (74-106); Potassium 3.3 mmol/L (3.5-5.1); Sodium Level 129 mmol/L (136-145)
[2020-06-16] MEDS: Carbidopa/Levodopa 25/100 Tablet PO ×4 (06:57→21:33)
[2020-06-16] MEDS: Nystatin Powder 15gm Bottle 1 APPLIC TOPICAL ×3 (06:57→21:34)
[2020-06-16] MEDS: Pramipexole Di-HCl 0.25 MG Tablet PO ×3 (06:57→21:33)
[2020-06-16] MEDS: Enoxaparin 40 MG/0.4 ML Syringe SC (09:04)
[2020-06-16] MEDS: Pantoprazole Sodium 40 MG Tablet PO (09:05)
[2020-06-16] MEDS: PARoxetine 10 MG Tablet 30 MG PO (09:05)
[2020-06-16] MEDS: Metoprolol(XL)Succ 25 MG Tablet PO (09:05)
[2020-06-16] MEDS: Cyanocobalamin 500 MCG Tablet 1000 MCG PO (09:05)
[2020-06-16] MEDS: Aspirin E.C. 81 MG Tablet PO (09:05)
--- NOTE | 2020-06-16 09:19 | PCM.PN.HOSP ---
Patient Problems: Active and Suspected Problems (Last Updated 04/08/20 @ 08:29 by Lina Enriquez) Enteritis (Acute) Failure of outpatient treatment (Acute) Dehydration (Acute) Hyponatremia (Acute) Syncope (Acute) Subjective: Doing better today, denies any nausea. She is does not feel like eating a whole lot however I did encourage her to try some solid foods today. Vitals/I&O's: Vital Signs Temp Pulse Resp BP Pulse Ox 98.0 F 88 16 118/59 L 95 06/16/20 09:00 06/16/20 09:05 06/16/20 09:00 06/16/20 09:00 06/16/20 09:00 Oxygen Delivery Method Room Air Weight: 182 lb 8.684 oz Body Mass Index (BMI) 33.3 Intake and Output for Last 24 Hours 06/14/20 06/15/20 06/16/20 23:59 23:59 23:59 Intake Total 4187.00 / 4307.00 360 / 600 240 / 240 Output Total 750 / 750 200 / 500 300 / 300 Balance 3437.00 / 3557.00 160 / 100 -60 / -60 General: Alert, Oriented x3, Cooperative, No apparent distress HEENT: Atraumatic, PERRLA, EOMI, Normocephalic Oral: Moist Mucosa Neck: Supple, No JVD Lungs: Normal air movement, No rhonchi, No wheeze, No rales, Diminished Cardiovascular: Regular rate, Regular Rhythm, Normal S1, Normal S2, No murmurs Abdomen: Soft, Non Tender, Non-Distended, No Hepato-splenomegaly Extremities: No edema, Capillary Refill Less than 3 Seconds Skin: No rashes, No breakdown Neurological: Neuro grossly intact, Sensory exam intact to light touch and pain, - - Chronic lower extremity tremor Psych/Mental Status: Normal Affect, Appropriate Microbiology Past 72 Hours 06/14/20 03:40 Blood Culture (Wb) - Left Hand Blood Culture - Preliminary No growth in 48 hours. 06/14/20 05:00 Urine, Random Urine Culture - Final Mixed Gram Pos & Gram Neg Org Laboratory Results 06/15/20 21:16: POC Glucose 134 H 06/16/20 05:24: Sodium 129 L, Potassium 3.3 L, Chloride 94 L, Carbon Dioxide 31.0, Anion Gap 4 L, BUN 8, Creatinine 0.70, Estim Creat Clear Calc 38.44, Est GFR (MDRD) Af Amer 105, Est GFR (MDRD) Non-Af 87, BUN/Creatinine Ratio 11.5, Glucose 96, Calcium 8.8 Current Medications Acetaminophen (Acetaminophen 325 Mg Tablet) 650 mg PO Q6H PRN PRN PRN Reason: Pain Score 1-10/Temp > 100.7 F Amlodipine Besylate (Amlodipine 5 Mg Tablet) 5 mg PO BID [facility] Last Admin: 06/16/20 09:01 Dose: Not Given Documented by: Aspirin (Aspirin E.C. 81 Mg Tablet) 81 mg PO DAILY@0800 [facility] Last Admin: 06/16/20 09:05 Dose: 81 mg Documented by: Atorvastatin Calcium (Atorvastatin Calcium 10 Mg Tablet) 10 mg PO QHS [facility] Last Admin: 06/15/20 21:55 Dose: 10 mg Documented by: Carbidopa/Levodopa (Carbidopa/Levodopa 25/100 Tablet) 2 tablet PO ACHS [facility] Last Admin: 06/16/20 06:57 Dose: 2 tablet Documented by: Cyanocobalamin (Cyanocobalamin 500 Mcg Tablet) 1,000 mcg PO DAILY [facility] Last Admin: 06/16/20 09:05 Dose: 1,000 mcg Documented by: Donepezil HCl (Donepezil Hcl 10 Mg Tablet) 10 mg PO QHS [facility] Last Admin: 06/15/20 21:56 Dose: 10 mg Documented by: Enoxaparin Sodium (Enoxaparin 40 Mg/0.4 Ml Syringe) 40 mg SC DAILY [facility] Last Admin: 06/16/20 09:04 Dose: 40 mg Documented by: Insulin Glargine (Insulin Glargine 100 Units/Ml Pen) 30 units SC QHS [facility] Last Admin: 06/15/20 21:57 Dose: 30 units Documented by: Lactobacillus Acidophilus (Lactobacillus Acidophilus) 1 tablet PO BID [facility] Last Admin: 06/16/20 09:04 Dose: 1 tablet Documented by: Melatonin (Melatonin 3 Mg Tablet) 3 mg PO QHS PRN PRN PRN Reason: INSOMNIA Metoprolol Succinate (Metoprolol(Xl)Succ 25 Mg Tablet) 25 mg PO DAILY [facility] Last Admin: 06/16/20 09:05 Dose: 25 mg Documented by: Morphine Sulfate (Morphine 2 Mg/Ml Syringe) 2 mg IV Q3H PRN PRN PRN Reason: Pain Score 6-10 Nitroglycerin (Nitroglycerin (Inpatient Use) 0.4 Mg Tab.Subl) 0.4 mg SL Q5M PRN PRN Reason: CARDIAC/CHEST PAIN Nystatin (Nystatin Powder 15gm Bottle) 1 applic TOPICAL TID [facility]; Protocol Last Admin: 06/16/20 06:57 Dose: 1 applic Documented by: Ondansetron HCl (Ondansetron 4 Mg/2 Ml Vial) 4 mg IV Q8H PRN PRN PRN Reason: NAUSEA/VOMITING Last Admin: 06/15/20 01:39 Dose: 4 mg Documented by: Oxycodone HCl (Oxycodone 5 Mg Tablet) 5 mg PO Q4H PRN PRN PRN Reason: Pain Score 4-5 Pantoprazole Sodium (Pantoprazole Sodium 40 Mg Tablet) 40 mg PO DAILY [facility] Last Admin: 06/16/20 09:05 Dose: 40 mg Documented by: Paroxetine HCl (Paroxetine 10 Mg Tablet) 30 mg PO DAILY [facility] Last Admin: 06/16/20 09:05 Dose: 30 mg Documented by: Pramipexole Dihydrochloride (Pramipexole Di-Hcl 0.25 Mg Tablet) 0.25 mg PO TID [facility] Last Admin: 06/16/20 06:57 Dose: 0.25 mg Documented by: Prochlorperazine Edisylate (Prochlorperazine 10 Mg/2 Ml Vial) 5 mg IV Q4H PRN PRN PRN Reason: Breakthrough Nausea/Vomiting Senna/Docusate Sodium (Senna/Docusate Sodium 1 Tablet) 2 tablet PO BID PRN PRN PRN Reason: Constipation Sodium Chloride (0.9% Saline Lock 10 Ml Syringe) 10 - 40 ml IV UD PRN PRN Reason: SALINE FLUSH Last Admin: 06/15/20 01:39 Dose: 10 ml Documented by: STROKE Vital Signs/Narrative: Vital Signs Temp Pulse Resp BP Pulse Ox 06/16/20 09:05 88 06/16/20 09:00 98.0 F 88 16 118/59 L 95 06/16/20 07:45 94 06/16/20 07:00 88 Medical Necessity - Tobacco Use Smoking Status: Never smoker Assessment/Plan All Active Problems (Last Updated 04/08/20 @ 08:29 by Lina Enriquez) Enteritis (Acute) Failure of outpatient treatment (Acute) Dehydration (Acute) Hyponatremia (Acute) Syncope (Acute) 1. Viral gastritis with dehydration/debility/hypovolemic hyponatremia -She received IV fluids and her creatinine improved. She is now hyponatremic and her potassium will be replaced at 3.3 -She denies any diarrhea and has not had any emesis -We will advance her diet and see how she tolerates -PT/OT evaluating for possible placement 2. DM 2 -Continue with sliding scale and long-acting insulin, hold Metformin -Accu-Cheks AC at bedtime, make adjustments as necessary 3. HTN/HLD -Blood pressure is stable -Continue with metoprolol and Norvasc, continue to hold lisinopril until taking p.o. -Continue with Crestor 4. Parkinson's disease/depression -Stable -Continue with Sinemet and pramipexole -Continue with Paxil 5. GERD -Stable -Continue PPI Disposition: Plan for group home facility for rehab prior to discharge home VTE: Lovenox Inpatient E&M: 48078 Subs Hosp L2
--- NOTE | 2020-06-16 11:04 | PCM.CONS.P ---
Problem List (1) Debility Status: Acute (2) Parkinson's disease Status: Chronic Comment: 2012 (3) Enteritis Status: Acute (4) Dehydration Status: Acute (5) Essential hypertension Status: Chronic (6) Bilateral lower extremity edema Status: Chronic (7) Venous insufficiency of left lower extremity Status: Chronic (8) History of colon cancer Status: Chronic (9) Hyperlipidemia Status: Chronic (10) Hypertension Status: Chronic (11) Type 2 diabetes mellitus Status: Chronic Qualifiers: Diabetes mellitus complication status: with skin complications Diabetes mellitus complication detail: with other skin ulcer History of Present Illness Date of Consult: 06/16/20 Reason for Consult: Parkinson's, weakness Requesting physician: [] Primary care physician: Dr. Prateek Cruz MD - History of Present Illness The patient is a 74 year old F with past medical history as below, history of right-sided colon cancer status post resection and colostomy with reversal 3 years ago, presented to the ED 06/08 with dehydration. She was given IV fluids, CT the abdomen with nothing acute. Sent home with antiemetics and return to the ED 06/14 due to unable to tolerate oral intake. She was admitted for further evaluation and management. CT abdomen pelvis with mild mural thickening of jejunum, possible infectious versus inflammatory enteritis. Patient does have chronic hyponatremia around 1 20-1 30. Again, she was given IV fluids resuscitation with improvement. Vitals have remained stable. Urine likely contaminated. She is now being evaluated for longterm placement. Spoke with her daughter, Lizz Campos. She reports Demetirce could definitely use additional assistance and would like to learn more about palliative care. Demetrice lives with her daughter and son-in-law, who provide most of her care and administer her medications. Lizz notes she can ambulate, however the past week she could not walk with her Rollator as normal. It is difficult to get her in the bathtub anymore, so they mainly do bathing at the sink. Lizz reports they will have to have help if patient remains this debilitated, as they cannot provide 24/7 care for her. She also states that Demetrice has started to refused to do any exercises or do anything for herself, being a slug. Patient has 2 living children, 1 . Denies any pain issues. She has generalized depression and anxiety, which is not well controlled according to the daughter. Demetrice reports it is difficult for her to see to read anymore, despite wearing her bifocals. She denies any hearing difficulties, no numbness and tingling, no nausea, vomiting, or diarrhea. She was on an altered diet, however today they switched her to a regular diet and she plans to try that for lunch today. She does admit her tremors have been much worse since this acute event. She was previously following with Dr. Bhatti, neurology. However he moved up to [place] only, so she is now following with Dr. Diego at [facility], who she has only seen once so far. Her next appointment is scheduled for July 01. Patient Problems: Chronic Problems (Last Reviewed 06/18/20 @ 11:30 by Rachael Latif, DARCI-C) Hyperlipidemia (Chronic) Type 2 diabetes mellitus (Chronic) Essential hypertension (Chronic) Parkinson's disease (Chronic) 2013 Diabetic ulcer of lower leg (Chronic) Bilateral lower extremity edema (Chronic) Venous insufficiency of left lower extremity (Chronic) Diabetic ulcer of right lower leg (Chronic) Diabetic ulcer of left lower leg (Chronic) History of colon cancer (Chronic) Hyperlipidemia (Chronic) Hypertension (Chronic) Type 2 diabetes mellitus (Chronic) Surgical History: cholecystectomy, colectomy Psychiatric History: Anxiety, Depression Home Medications: Ambulatory Orders Medication Instructions Recorded Rosuvastatin Calcium [Crestor] 5 mg PO QHS 08/05/13 Metoprolol Succinate 25 mg PO DAILY 03/15/19 amlodipine 5 mg tablet 5 mg PO BID tab 04/06/20 ascorbate calcium (vitamin C) 500 1,000 mg PO DAILY tab 04/06/20 mg tablet cholecalciferol (vitamin D3) 25 25 mcg PO DAILY 04/06/20 mcg (1,000 unit) capsule paroxetine HCl 30 mg tablet 30 mg PO DAILY 04/06/20 aspirin 81 mg tablet,delayed 81 mg PO DAILY@0800 04/08/20 release donepezil 10 mg tablet 10 mg PO QHS #30 tab 04/08/20 insulin glargine 100 unit/mL (3 40 unit SC QHS ml 04/08/20 mL) subcutaneous pen mecobalamin (vitamin B12) 1,000 1,000 mcg PO DAILY 04/08/20 mcg chewable tablet pramipexole 0.25 mg tablet 0.25 mg PO TID #90 tab 04/08/20 Carbidopa/Levodopa 25/ [Sinemet 2 tab PO 4X/DAY 06/08/20 25/] Lisinopril [Zestril] 20 mg PO BID 06/08/20 Metformin HCl [Metformin HCl ER] 500 mg PO BID 06/08/20 Ondansetron [Zofran Odt] 8 mg PO Q8H PRN PRN #20 tab 06/08/20 Pantoprazole Sodium [Protonix] 40 mg PO DAILY #14 tab 06/08/20 Allergies codeine Allergy (Verified 06/13/20 22:53) hives - Social History Lives: With Family Smoking Status: Never smoker Alcohol: None Drugs: None Code Status: DNRCC-A - daughter Lizz Review of Systems Constitutional: Reports: Anorexia, Malaise, Weakness, Fatigue. Denies: Chills, Fever, Weight Change Eyes: Reports: Vision Change - cannot read anymore, glasses do not help HEENT: Denies: Head Aches, Sinus Congestion, Sinus Drainage Cardiovascular: Reports: Edema. Denies: Chest Pain, Chest Tightness, Light Headedness, Orthopnea, Palpitations Respiratory: Denies: Cough, Shortness of Breath, Shortness of breath at rest, Sputum production, Wheezing Gastrointestinal: Denies: Abdominal Pain, Constipation, Diarrhea, Nausea - mostly resolved., Vomiting Genitourinary: Denies: Dysuria, Incontinence Musculoskeletal: Denies: Joint Pain, Joint Tenderness Skin: Denies: Rash, Wounds Neurological: Reports: Balance problems, Tremor. Denies: Change in Speech, Difficulty swallowing, Focal weakness, Numbness, Tingling, Seizures Psychiatric: Reports: Anxiety, Depression. Denies: Homicidal Ideations, Suicidal Ideations Hematologic/ Lymphatic: Reports: Easy Bruising. Denies: Easy Bleeding Physical Exam Subjective: Lying in bed, flat affect but communicating. Her tremors have been bothersome. Overall, she is feeling a little better. General: Alert, Oriented x3, Cooperative, No apparent distress HEENT: Atraumatic, Normocephalic Oral: Moist Mucosa Neck: Supple, No JVD, Trachea Midline Lungs: Clear to auscultation, Diminished Cardiovascular: Regular rate, Regular Rhythm, Normal S1, Normal S2, No murmurs Abdomen: Bowel Sounds Present, Soft, Non Tender, Hyperactive Bowel Sounds, Obese Extremities: No clubbing, No cyanosis, Capillary Refill Less than 3 Seconds, Diminished Peripheral Pulses - dimin R pedal, left is normal, Edema - trace LE Skin: No rashes, No breakdown Musculoskeletal: No Tenderness to Palpation of Joints or Extremities, Arthritic Changes Neurological: Cranial nerves II-XII grossly intact Psych/Mental Status: Appropriate, Flat Affect, Depressed Objective: Vital Signs Temp Pulse Resp BP Pulse Ox 98.0 F 88 16 118/59 L 95 06/16/20 09:00 06/16/20 09:05 06/16/20 09:00 06/16/20 09:00 06/16/20 09:00 Oxygen Delivery Method Room Air Weight: 82.8 kg Body Mass Index (BMI) 33.3 Intake and Output for Last 24 Hours 06/14/20 06/15/20 06/16/20 23:59 23:59 23:59 Intake Total 4187.00 / 4307.00 360 / 600 240 / 240 Output Total 750 / 750 200 / 500 300 / 300 Balance 3437.00 / 3557.00 160 / 100 -60 / -60 Microbiology Past 72 Hours 06/16/20 09:40 SARS-CoV-2 Antigen (Rapid) - Final Mucosa - Nose 06/14/20 03:40 Blood Culture - Preliminary Blood Culture (Wb) - Left Hand No growth in 48 hours. 06/14/20 05:00 Urine Culture - Final Urine, Random Mixed Gram Pos & Gram Neg Org Laboratory Tests Past 24 Hrs 06/16/20 05:24 Sodium 129 L Potassium 3.3 L Chloride 94 L Carbon Dioxide 31.0 Anion Gap 4 L BUN 8 Creatinine 0.70 Estim Creat Clear Calc 38.44 Est GFR (MDRD) Af Amer 105 Est GFR (MDRD) Non-Af 87 BUN/Creatinine Ratio 11.5 Glucose 96 Calcium 8.8 Assessment/Plan All Active Problems (Last Reviewed 06/18/20 @ 11:30 by Rachael Latif, DARCI-C) Enteritis (Acute) Failure of outpatient treatment (Acute) Dehydration (Acute) Debility (Acute) Hyponatremia (Acute) Syncope (Acute) 74-year-old female with history of colon cancer, Parkinson's, seen today for palliative care consultation related to debility secondary to Parkinson's. 1. Debility and weakness secondary to overall decline, Parkinson's: Exacerbated, more weak, increased tremors. Current enteritis, but improving. She will be discharged to longterm for the time being. Lives with daughter. Has neurologist, Dr. Diego (prior was Dr. Bhatti). Next appt July 01. Takes Sinemet and Aricept, Mirapex. She is not really interested in doing therapy, however daughter has been encouraging her to do so. Plan is to discharge home after skilled therapy back with her daughter.We will follow-up as an outpatient. 2. Diabetic neuropathy/T2 DM: Seems to be fairly well controlled, follow-up with primary care for management of diabetes. She is not currently on any meds for her neuropathy. 3. HTN/HLD/history of diabetic ulcer of legs/hyponatremia/syncope/history of colon cancer/enteritis: Complicates overall care, management, recovery, and prognosis. Enteritis is resolving. Defer management to PCP's/specialists. Greater than 50% of F2F dedicated to education and counseling of patient and her daughterLizz regarding palliative care services, expected course of disease and comorbidities, and plan of care. Thank you for the opportunity to participate in this patient's care, please do not hesitate to contact [facility] with any further questions or concerns. Direct palliative care line: [phone]. We will have a nursing follow-up visit within 3 days of discharge of the longterm facility.
[2020-06-16] MEDS: Ondansetron 4 MG/2 ML Vial IV (12:06)
[2020-06-16] MEDS: Potassium Chloride Oral Tablet 20 MEQ 60 MEQ PO (12:11)
[2020-06-16 12:21] LABS: Bedside Glucose 70 mg/dL (70-110)
--- NOTE | 2020-06-16 16:25 | CASEMGMT ---
SW spoke with patient and her daughter. SW answered all questions. Patient's daughter brought patient's suitcase and her rollator. There was question as to whether or not [facility] will transport these belongings. SW called [facility] and SW was told they will transport these belongings. SW let patient's daughter know as well as RN. SW called [facility] and left a message for Maria D letting her know to call PCU if she gets pre-cert. SW put a green sheet on chart. Plan: d/c to [facility] pending pre-cert. Robyn [employer]
[2020-06-16 16:35] LABS: Bedside Glucose 133 mg/dL (70-110)
[2020-06-16] MEDS: Donepezil HCl 10 MG Tablet PO (21:33)
[2020-06-16] MEDS: Atorvastatin Calcium 10 MG Tablet PO (21:33)
[2020-06-16] MEDS: amLODIPine 5 MG Tablet PO (21:34)
[2020-06-16 21:56] LABS: Bedside Glucose 225 mg/dL (70-110)
[2020-06-17] VITALS (10 sets, daily range): BP systolic 119–157; BP diastolic 56–92; PULSE 68–90; RESP 14–16; TEMP 36.4–36.7; O2SAT 94–98
[2020-06-17 06:11] LABS: Anion Gap 7 (5-15); BUN 9 mg/dL (7-18); BUN/Creat Ratio 11.6 RATIO (10-20); Calcium,Total 8.4 mg/dL (8.5-10.1); Chloride 91 mmol/L (98-107); Creatinine, Serum 0.77 mg/dL (0.55-1.02); EST Glomerular Filtration Rate 77 mL/min (>60); Est Glom Filt Rate - Afr Amer 93 mL/min (>60); Estimated Creatinine Clearance 38.44 ml/min; Glucose 109 mg/dL (74-106); Magnesium 1.2 mg/dL (1.6-2.6); Phosphorus 2.6 mg/dL (2.5-4.9); Potassium 3.3 mmol/L (3.5-5.1); Sodium Level 129 mmol/L (136-145)
[2020-06-17] MEDS: Nystatin Powder 15gm Bottle 1 APPLIC TOPICAL ×2 (06:38→13:23)
[2020-06-17] MEDS: Carbidopa/Levodopa 25/100 Tablet PO ×3 (06:39→15:42)
[2020-06-17] MEDS: Pramipexole Di-HCl 0.25 MG Tablet PO ×2 (06:39→13:21)
[2020-06-17 07:00] LABS: Bedside Glucose 99 mg/dL (70-110)
[2020-06-17] MEDS: amLODIPine 5 MG Tablet PO (09:33)
[2020-06-17] MEDS: Pantoprazole Sodium 40 MG Tablet PO (09:33)
[2020-06-17] MEDS: Cyanocobalamin 500 MCG Tablet 1000 MCG PO (09:33)
[2020-06-17] MEDS: Aspirin E.C. 81 MG Tablet PO (09:33)
[2020-06-17] MEDS: Metoprolol(XL)Succ 25 MG Tablet PO (09:33)
[2020-06-17] MEDS: Enoxaparin 40 MG/0.4 ML Syringe SC (09:34)
[2020-06-17] MEDS: PARoxetine 10 MG Tablet 30 MG PO (09:34)
--- NOTE | 2020-06-17 09:56 | PCM.PN.HOSP ---
Patient Problems: Active and Suspected Problems (Last Updated 04/08/20 @ 08:29 by Lina Enriquez) Enteritis (Acute) Failure of outpatient treatment (Acute) Dehydration (Acute) Hyponatremia (Acute) Syncope (Acute) Subjective: Doing much better today, is able to try little bit of solid food yesterday. Denies any nausea or vomiting. No abdominal pain. Vitals/I&O's: Vital Signs Temp Pulse Resp BP Pulse Ox 98.0 F 90 14 133/72 H 96 06/17/20 09:30 06/17/20 09:33 06/17/20 09:30 06/17/20 09:30 06/17/20 09:30 Oxygen Delivery Method Room Air Weight: 182 lb 8.684 oz Body Mass Index (BMI) 33.3 Intake and Output for Last 24 Hours 06/15/20 06/16/20 06/17/20 23:59 23:59 23:59 Intake Total 360 / 600 540 / 660 120 / 120 Output Total 200 / 500 300 / 375 75 / 75 Balance 160 / 100 240 / 285 45 / 45 General: Alert, Oriented x3, Cooperative, No apparent distress HEENT: Atraumatic, PERRLA, EOMI, Normocephalic Oral: Moist Mucosa Neck: Supple, No JVD Lungs: Normal air movement, No rhonchi, No wheeze, No rales, Diminished Cardiovascular: Regular rate, Regular Rhythm, Normal S1, Normal S2, No murmurs Abdomen: Soft, Non Tender, Non-Distended, No Hepato-splenomegaly Extremities: No edema, Capillary Refill Less than 3 Seconds Skin: No rashes, No breakdown Neurological: Neuro grossly intact, Sensory exam intact to light touch and pain, - - Chronic lower extremity tremor Psych/Mental Status: Normal Affect, Appropriate Microbiology Past 72 Hours 06/16/20 09:40 Mucosa - Nose SARS-CoV-2 Antigen (Rapid) - Final 06/14/20 03:40 Blood Culture (Wb) - Left Hand Blood Culture - Preliminary No growth in 48 hours. 06/14/20 05:00 Urine, Random Urine Culture - Final Mixed Gram Pos & Gram Neg Org Laboratory Results 06/16/20 11:58: POC Glucose 70 06/16/20 16:26: POC Glucose 133 H 06/16/20 21:32: POC Glucose 225 H 06/17/20 05:14: Sodium 129 L, Potassium 3.3 L, Chloride 91 L, Carbon Dioxide 31.0, Anion Gap 7, BUN 9, Creatinine 0.77, Estim Creat Clear Calc 38.44, Est GFR (MDRD) Af Amer 93, Est GFR (MDRD) Non-Af 77, BUN/Creatinine Ratio 11.6, Glucose 109 H, Calcium 8.4 L, Phosphorus 2.6, Magnesium 1.2 L 06/17/20 06:36: POC Glucose 99 Current Medications Acetaminophen (Acetaminophen 325 Mg Tablet) 650 mg PO Q6H PRN PRN PRN Reason: Pain Score 1-10/Temp > 100.7 F Amlodipine Besylate (Amlodipine 5 Mg Tablet) 5 mg PO BID [facility] Last Admin: 06/17/20 09:33 Dose: 5 mg Documented by: Aspirin (Aspirin E.C. 81 Mg Tablet) 81 mg PO DAILY@0800 [facility] Last Admin: 06/17/20 09:33 Dose: 81 mg Documented by: Atorvastatin Calcium (Atorvastatin Calcium 10 Mg Tablet) 10 mg PO QHS [facility] Last Admin: 06/16/20 21:33 Dose: 10 mg Documented by: Carbidopa/Levodopa (Carbidopa/Levodopa 25/100 Tablet) 2 tablet PO [facility] Last Admin: 06/17/20 06:39 Dose: 2 tablet Documented by: Cyanocobalamin (Cyanocobalamin 500 Mcg Tablet) 1,000 mcg PO DAILY [facility] Last Admin: 06/17/20 09:33 Dose: 1,000 mcg Documented by: Donepezil HCl (Donepezil Hcl 10 Mg Tablet) 10 mg PO QHS [facility] Last Admin: 06/16/20 21:33 Dose: 10 mg Documented by: Enoxaparin Sodium (Enoxaparin 40 Mg/0.4 Ml Syringe) 40 mg SC DAILY [facility] Last Admin: 06/17/20 09:34 Dose: 40 mg Documented by: Magnesium Sulfate () 4 gm in 100 mls @ 25 mls/hr IV X1 ONE Stop: 06/17/20 11:59 Insulin Glargine (Insulin Glargine 100 Units/Ml Pen) 30 units SC QHS [facility] Last Admin: 06/16/20 21:34 Dose: 30 units Documented by: Lactobacillus Acidophilus (Lactobacillus Acidophilus) 1 tablet PO BID [facility] Last Admin: 06/17/20 09:33 Dose: 1 tablet Documented by: Melatonin (Melatonin 3 Mg Tablet) 3 mg PO QHS PRN PRN PRN Reason: INSOMNIA Metoprolol Succinate (Metoprolol(Xl)Succ 25 Mg Tablet) 25 mg PO DAILY [facility] Last Admin: 06/17/20 09:33 Dose: 25 mg Documented by: Morphine Sulfate (Morphine 2 Mg/Ml Syringe) 2 mg IV Q3H PRN PRN PRN Reason: Pain Score 6-10 Nitroglycerin (Nitroglycerin (Inpatient Use) 0.4 Mg Tab.Subl) 0.4 mg SL Q5M PRN PRN Reason: CARDIAC/CHEST PAIN Nystatin (Nystatin Powder 15gm Bottle) 1 applic TOPICAL TID [facility]; Protocol Last Admin: 06/17/20 06:38 Dose: 1 applic Documented by: Ondansetron HCl (Ondansetron 4 Mg/2 Ml Vial) 4 mg IV Q8H PRN PRN PRN Reason: NAUSEA/VOMITING Last Admin: 06/16/20 12:06 Dose: 4 mg Documented by: Oxycodone HCl (Oxycodone 5 Mg Tablet) 5 mg PO Q4H PRN PRN PRN Reason: Pain Score 4-5 Pantoprazole Sodium (Pantoprazole Sodium 40 Mg Tablet) 40 mg PO DAILY [facility] Last Admin: 06/17/20 09:33 Dose: 40 mg Documented by: Paroxetine HCl (Paroxetine 10 Mg Tablet) 30 mg PO DAILY [facility] Last Admin: 06/17/20 09:34 Dose: 30 mg Documented by: Potassium Chloride (Potassium Chloride Oral Tablet 20 Meq) 60 meq PO X1 ONE Stop: 06/17/20 12:01 Pramipexole Dihydrochloride (Pramipexole Di-Hcl 0.25 Mg Tablet) 0.25 mg PO TID [facility] Last Admin: 06/17/20 06:39 Dose: 0.25 mg Documented by: Prochlorperazine Edisylate (Prochlorperazine 10 Mg/2 Ml Vial) 5 mg IV Q4H PRN PRN PRN Reason: Breakthrough Nausea/Vomiting Senna/Docusate Sodium (Senna/Docusate Sodium 1 Tablet) 2 tablet PO BID PRN PRN PRN Reason: Constipation Sodium Chloride (0.9% Saline Lock 10 Ml Syringe) 10 - 40 ml IV UD PRN PRN Reason: SALINE FLUSH Last Admin: 06/15/20 01:39 Dose: 10 ml Documented by: STROKE Vital Signs/Narrative: Vital Signs Temp Pulse Resp BP Pulse Ox 06/17/20 09:33 90 06/17/20 09:30 98.0 F 90 14 133/72 H 96 06/17/20 07:13 94 06/17/20 07:00 72 06/17/20 06:15 97.5 F L 79 16 157/89 H 97 Medical Necessity - Tobacco Use Smoking Status: Never smoker Assessment/Plan All Active Problems (Last Updated 04/08/20 @ 08:29 by Lina Enriquez) Enteritis (Acute) Failure of outpatient treatment (Acute) Dehydration (Acute) Hyponatremia (Acute) Syncope (Acute) 1. Viral gastritis with dehydration/debility/hypovolemic hyponatremia -She received IV fluids and her creatinine improved. She is now hyponatremic and her potassium will be replaced at 3.3, her magnesium is 1.2 cyst will also be replaced -She denies any diarrhea and has not had any emesis -We will advance her diet and see how she tolerates -PT/OT evaluating for possible placement 2. DM 2 -Continue with sliding scale and long-acting insulin, hold Metformin -Accu-Cheks AC at bedtime, make adjustments as necessary 3. HTN/HLD -Blood pressure is stable -Continue with metoprolol and Norvasc, continue to hold lisinopril until taking p.o. -Continue with Crestor 4. Parkinson's disease/depression -Stable -Continue with Sinemet and pramipexole -Continue with Paxil 5. GERD -Stable -Continue PPI Disposition: Plan for [facility] facility for rehab prior to discharge home VTE: Lovenox Inpatient E&M: 16335 Subs Hosp L2
[2020-06-17] MEDS: Ondansetron 4 MG/2 ML Vial IV (10:18)
[2020-06-17] MEDS: Magnesium Sulfate 4gm/100mL 4 GM/100 ML IV.SOLN. IV (10:55)
[2020-06-17 11:46] LABS: Bedside Glucose 162 mg/dL (70-110)
--- NOTE | 2020-06-17 13:20 | CASEMGMT ---
[facility]ART called [place] and left a message asking if they have heard from insurance. MART received a voice mail from Maria D. She emailed her contact and is waiting on a response. Robyn LAYTON MSW
[2020-06-17] MEDS: Potassium Chloride Oral Tablet 20 MEQ 60 MEQ PO (13:21)
--- NOTE | 2020-06-17 15:58 | PCM.TXEXTCAR ---
- Diet 06/15/20 07:32 Diet: Regular - General Type of Dietary Supplement:: Ensure Clear Is pt able to select menu?: Yes Diet Comments: 120 ml ensure clear w/ meals. - Routine Orders/Code Status Routine Lab Work: BMP, - - Magnesium Code Status: DNRCC-A - daughter Lizz - Therapies Physical Therapy: Eval and Treat Occupational Therapy: Eval and Treat - Allergies/Procedures Done in Hospital Allergies/Adverse Reactions: Allergies codeine Allergy (Verified 06/13/20 22:53) hives Procedures: None - Type of Care/Length of Stay Estimated LOS: Convalescent Care Less Than 30 days Type of Care Needed: Skilled Rehab Potential: Good Prognosis: Good - Additional Orders/Day of Discharge Day of Discharge: 06/17/20 - Dietary and Speech Recommendations Dietitian Recommendations/Changes: Continue regular diet- as pt tolerates solid foods and intake increases will consider providing therapeutic diet. Will provide ensure clear w/ pt meals for additional jeana/protein if consumed. - Follow Up Care Primary Care Physician: Prateek Cruz MD [Primary Care Provider] - Please follow up with your Primary Care Physician in: 3-5 days
--- NOTE | 2020-06-17 16:21 | PHA.DC.MR ---
Pharmacy Service has performed discharge medication reconciliation for this patient upon transfer to [facility]. Home Medications Rosuvastatin Calcium [Crestor] 5 mg PO QHS 08/05/13 Metoprolol Succinate 25 mg PO DAILY 03/15/19 amlodipine 5 mg tablet 5 mg PO BID tab 04/06/20 ascorbate calcium (vitamin C) 500 mg tablet 1,000 mg PO DAILY tab 04/06/20 cholecalciferol (vitamin D3) 25 mcg (1,000 unit) capsule 25 mcg PO DAILY 04/06/20 paroxetine HCl 30 mg tablet 30 mg PO DAILY 04/06/20 aspirin 81 mg tablet,delayed release 81 mg PO DAILY@0800 04/08/20 donepezil 10 mg tablet 10 mg PO QHS #30 tab 04/08/20 insulin glargine 100 unit/mL (3 mL) subcutaneous pen 40 unit SC QHS ml 04/08/20 mecobalamin (vitamin B12) 1,000 mcg chewable tablet 1,000 mcg PO DAILY 04/08/20 pramipexole 0.25 mg tablet 0.25 mg PO TID #90 tab 04/08/20 Carbidopa/Levodopa 25/100 [Sinemet 25/100] 2 tab PO 4X/DAY 06/08/20 Lisinopril [Zestril] 20 mg PO BID 06/08/20 Metformin HCl [Metformin HCl ER] 500 mg PO BID 06/08/20 Ondansetron [Zofran Odt] 8 mg PO Q8H PRN PRN #20 tab 06/08/20 Pantoprazole Sodium [Protonix] 40 mg PO DAILY #14 tab 06/08/20 The patient's discharge medication list was reviewed for discrepancies and discrepancies were resolved.
--- NOTE | 2020-06-17 16:26 | CASEMGMT ---
SW received a call from Maria D at [facility] and patient was approved. SW completed convalescent. Arranged for patient to get picked up at 630p via Tier 3 van. MART faxed d/c orders to [facility]. MART notified RN, tester operator helper, and Maria D at [facility]. RN was going to call patient's daughter and notify her of d/c and time. Plan: d/c to [facility] under skilled level of care on a convalescent stay. Physicians transported patient via van. Robyn LAYTON MSW
--- NOTE | 2020-06-17 17:11 | DS.PCM_ITS ---
Discharge Date and Diagnosis - Problem List Patient Problems: Active and Suspected Problems (Last Updated 04/08/20 @ 08:29 by Lina Enriquez) Enteritis (Acute) Failure of outpatient treatment (Acute) Dehydration (Acute) Hyponatremia (Acute) Syncope (Acute) Date of Admission: 06/16/20 Date of Discharge: 06/17/20 - Primary Discharge Diagnosis Acute Problems: Active Problems (Last Updated 04/08/20 @ 08:29 by Lina Enriquez) Enteritis (Acute) Failure of outpatient treatment (Acute) Dehydration (Acute) Hyponatremia (Acute) Syncope (Acute) - Secondary Discharge Diagnosis Chronic Problems: Chronic Problems (Last Updated 04/08/20 @ 08:29 by Lina Enriquez) Hyperlipidemia (Chronic) Type 2 diabetes mellitus (Chronic) Essential hypertension (Chronic) Parkinson's disease (Chronic) 2013 Diabetic ulcer of lower leg (Chronic) Bilateral lower extremity edema (Chronic) Venous insufficiency of left lower extremity (Chronic) 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 No evidence for bowel obstruction or ileus. Previous cholecystectomy. Previous sigmoid colon surgery. Umbilical hernia containing small bowel. No associated bowel obstruction or strangulation. Colonic diverticulosis, without evidence for acute diverticulitis. Atherosclerosis. Bilateral adrenal adenomas. Old granulomatous disease. No evidence for appendicitis. Electronically Signed: Memo Mayer MD at 2:08 EDT , Service support , Consults: Palliative Care Operations: None Procedures: None Summary of Care Provided: Per HPI: The patient is a 74 year old F with history of right-sided colon cancer status post resection, colostomy reversal 3 years ago came to ER with persistent nausea and vomiting for 1 week. On 06/08, patient went to see PCP who referred to ER. Patient was found dehydrated and was given IV fluid. CT abdomen was done which did not show anything acute. Patient was discharged home with antiemetics. Patient continued to have nausea and vomiting. She denies abdominal pain or cramps. Occasionally she feels abdominal discomfort. No fever or chills. She is not able to tolerate food or water therefore came to ER. In ED, no fever heart rate in the 80s. Blood pressure 136/60. Patient did not had fever or chills during previous ER visit on 06/08. Initial labs in the ER shows mild leukocytosis 11.9 thousand, neutrophil 89.6%. Sodium 128, K3.9. Creatinine 1.03. Lactic acid 2.4. Liver chemistry within normal limit. TB 1.1. CT abdomen without contrast shows mild mural thickening of some loops of jejunum probably inflammatory or infectious. No evidence of bowel obstruction or ileus. Hospital Course: 1. Viral gastritis with dehydration/debility/hypovolemic hyponatremia?[id number] female is status post colectomy and colostomy reversal as well as a history of Parkinson's presented to the hospital with 1 week of nausea and vomiting. She lives with her daughter who is normally able to take care of her however because of her nausea and vomiting she became significantly weak and her daughter no longer help her at home so she brought her into the ER. CT scan of her abdomen pelvis was unremarkable, there was some mild possible thickening of the jejunum with possible enteritis however she was not having any increased diarrhea, she normally has loose stool secondary to her colonic resection and colostomy reversal. She was feeling better today and was able to tolerate a little bit of a diet. She was not having any abdominal pain or nausea and vomiting this morning. She was found to have significantly low magnesium on admission of 0.9 and this was replaced and she recovered to 1.9 however today she was found to be 1.2 so this was also replaced as was her p otassium of 3.3. I would recommend follow-up with her magnesium and her potassium as an outpatient in the senior care. I did discuss with her to slowly advance her diet so stenotic cause herself to become more nauseated. I discussed with her the plan for discharge today she expressed understanding of the risk and benefits of discharge and would like to be discharged to the alf facility today start her rehab. 2. Type 2 diabetes, hypertension, hyperlipidemia, Parkinson's disease, depression, GERD are all chronic medical conditions which complicate her care. Her home medications were continued where appropriate Patient Problems: Active and Suspected Problems (Last Updated 04/08/20 @ 08:29 by Lina Enriquez) Enteritis (Acute) Failure of outpatient treatment (Acute) Dehydration (Acute) Hyponatremia (Acute) Syncope (Acute) - Physical Exam Vitals/I&O's: Vital Signs Temp Pulse Resp BP Pulse Ox 97.6 F L 83 14 153/92 H 96 06/17/20 15:38 06/17/20 15:38 06/17/20 15:38 06/17/20 15:38 06/17/20 15:38 Oxygen Delivery Method Room Air Weight: 182 lb 8.684 oz Body Mass Index (BMI) 33.3 Intake and Output for Last 24 Hours 06/15/20 06/16/20 06/17/20 23:59 23:59 23:59 Intake Total 360 / 600 540 / 660 220 / 220 Output Total 200 / 500 300 / 375 1175 / 1175 Balance 160 / 100 240 / 285 -955 / -955 Microbiology Past 72 Hours 06/16/20 09:40 Mucosa - Nose SARS-CoV-2 Antigen (Rapid) - Final 06/14/20 03:40 Blood Culture (Wb) - Left Hand Blood Culture - Preliminary No growth in 48 hours. 06/14/20 05:00 Urine, Random Urine Culture - Final Mixed Gram Pos & Gram Neg Org Laboratory Results 06/16/20 21:32: POC Glucose 225 H 06/17/20 05:14: Sodium 129 L, Potassium 3.3 L, Chloride 91 L, Carbon Dioxide 31.0, Anion Gap 7, BUN 9, Creatinine 0.77, Estim Creat Clear Calc 38.44, Est GFR (MDRD) Af Amer 93, Est GFR (MDRD) Non-Af 77, BUN/Creatinine Ratio 11.6, Glucose 109 H, Calcium 8.4 L, Phosphorus 2.6, Magnesium 1.2 L 06/17/20 06:36: POC Glucose 99 06/17/20 11:38: POC Glucose 162 H Current Medications Acetaminophen (Acetaminophen 325 Mg Tablet) 650 mg PO Q6H PRN PRN PRN Reason: Pain Score 1-10/Temp > 100.7 F Amlodipine Besylate (Amlodipine 5 Mg Tablet) 5 mg PO BID [facility] Last Admin: 06/17/20 09:33 Dose: 5 mg Documented by: Aspirin (Aspirin E.C. 81 Mg Tablet) 81 mg PO DAILY@0800 [facility] Last Admin: 06/17/20 09:33 Dose: 81 mg Documented by: Atorvastatin Calcium (Atorvastatin Calcium 10 Mg Tablet) 10 mg PO QHS [facility] Last Admin: 06/16/20 21:33 Dose: 10 mg Documented by: Carbidopa/Levodopa (Carbidopa/Levodopa 25/100 Tablet) 2 tablet PO ACHS [facility] Last Admin: 06/17/20 15:42 Dose: 2 tablet Documented by: Cyanocobalamin (Cyanocobalamin 500 Mcg Tablet) 1,000 mcg PO DAILY [facility] Last Admin: 06/17/20 09:33 Dose: 1,000 mcg Documented by: Donepezil HCl (Donepezil Hcl 10 Mg Tablet) 10 mg PO QHS [facility] Last Admin: 06/16/20 21:33 Dose: 10 mg Documented by: Enoxaparin Sodium (Enoxaparin 40 Mg/0.4 Ml Syringe) 40 mg SC DAILY [facility] Last Admin: 06/17/20 09:34 Dose: 40 mg Documented by: Insulin Glargine (Insulin Glargine 100 Units/Ml Pen) 30 units SC QHS [facility] Last Admin: 06/16/20 21:34 Dose: 30 units Documented by: Lactobacillus Acidophilus (Lactobacillus Acidophilus) 1 tablet PO BID [facility] Last Admin: 06/17/20 09:33 Dose: 1 tablet Documented by: Melatonin (Melatonin 3 Mg Tablet) 3 mg PO QHS PRN PRN PRN Reason: INSOMNIA Metoprolol Succinate (Metoprolol(Xl)Succ 25 Mg Tablet) 25 mg PO DAILY [facility] Last Admin: 06/17/20 09:33 Dose: 25 mg Documented by: Morphine Sulfate (Morphine 2 Mg/Ml Syringe) 2 mg IV Q3H PRN PRN PRN Reason: Pain Score 6-10 Nitroglycerin (Nitroglycerin (Inpatient Use) 0.4 Mg Tab.Subl) 0.4 mg SL Q5M PRN PRN Reason: CARDIAC/CHEST PAIN Nystatin (Nystatin Powder 15gm Bottle) 1 applic TOPICAL TID [facility]; Protocol Last Admin: 06/17/20 13:23 Dose: 1 applic Documented by: Ondansetron HCl (Ondansetron 4 Mg/2 Ml Vial) 4 mg IV Q8H PRN PRN PRN Reason: NAUSEA/VOMITING Last Admin: 06/17/20 10:18 Dose: 4 mg Documented by: Oxycodone HCl (Oxycodone 5 Mg Tablet) 5 mg PO Q4H PRN PRN PRN Reason: Pain Score 4-5 Pantoprazole Sodium (Pantoprazole Sodium 40 Mg Tablet) 40 mg PO DAILY [facility] Last Admin: 06/17/20 09:33 Dose: 40 mg Documented by: Paroxetine HCl (Paroxetine 10 Mg Tablet) 30 mg PO DAILY [facility] Last Admin: 06/17/20 09:34 Dose: 30 mg Documented by: Pramipexole Dihydrochloride (Pramipexole Di-Hcl 0.25 Mg Tablet) 0.25 mg PO TID [facility] Last Admin: 06/17/20 13:21 Dose: 0.25 mg Documented by: Prochlorperazine Edisylate (Prochlorperazine 10 Mg/2 Ml Vial) 5 mg IV Q4H PRN PRN PRN Reason: Breakthrough Nausea/Vomiting Senna/Docusate Sodium (Senna/Docusate Sodium 1 Tablet) 2 tablet PO BID PRN PRN PRN Reason: Constipation Sodium Chloride (0.9% Saline Lock 10 Ml Syringe) 10 - 40 ml IV UD PRN PRN Reason: SALINE FLUSH Last Admin: 06/15/20 01:39 Dose: 10 ml Documented by: Home Medications: Medications to take at Discharge Rosuvastatin Calcium [Crestor] 5 mg PO QHS 08/05/13 Metoprolol Succinate 25 mg PO DAILY 03/15/19 amlodipine 5 mg tablet 5 mg PO BID tab 04/06/20 ascorbate calcium (vitamin C) 500 mg tablet 1,000 mg PO DAILY tab 04/06/20 cholecalciferol (vitamin D3) 25 mcg (1,000 unit) capsule 25 mcg PO DAILY 04/06/20 paroxetine HCl 30 mg tablet 30 mg PO DAILY 04/06/20 aspirin 81 mg tablet,delayed release 81 mg PO DAILY@0800 04/08/20 donepezil 10 mg tablet 10 mg PO QHS #30 tab 04/08/20 insulin glargine 100 unit/mL (3 mL) subcutaneous pen 40 unit SC QHS ml 04/08/20 mecobalamin (vitamin B12) 1,000 mcg chewable tablet 1,000 mcg PO DAILY 04/08/20 pramipexole 0.25 mg tablet 0.25 mg PO TID #90 tab 04/08/20 Carbidopa/Levodopa 25/100 [Sinemet 25/100] 2 tab PO 4X/DAY 06/08/20 Lisinopril [Zestril] 20 mg PO BID 06/08/20 Metformin HCl [Metformin HCl ER] 500 mg PO BID 06/08/20 Ondansetron [Zofran Odt] 8 mg PO Q8H PRN PRN #20 tab 06/08/20 Pantoprazole Sodium [Protonix] 40 mg PO DAILY #14 tab 06/08/20 Primary Care Physician: Prateek Cruz MD [Primary Care Provider] - Please follow up with your Primary Care Physician in: 3-5 days Disposition: Detention facility Minutes spent on discharge:: 35 Patient Condition:: Stable Medical Necessity - Tobacco Use Smoking Status: Never smoker Meaningful Use Info Meaningful Use Diagnoses (Choose all that apply): None applicable Inpatient E&M: 11876 [facility] Hosp
[2020-06-17 17:35] LABS: Bedside Glucose 149 mg/dL (70-110)
== END 2020-06-17 18:28 | disposition skilled nursing facility (03) | DRG 392 ==
LOC: ED 06-14 02:36 → PCU 06-14 02:56
PROVIDERS: Admitting Provider Internal Medicine; Emergency Provider Emergency Medicine; PCP Family Medicine; Visit Provider Family Medicine
DX: A08.4 Viral intestinal infection, unspecified (principal); E87.1 Hypo-osmolality and hyponatremia; L97.929 Non-pressure chronic ulcer of unspecified part of left lower leg with unspecified severity; L97.919 Non-pressure chronic ulcer of unspecified part of right lower leg with unspecified severity; E86.0 Dehydration; K42.9 Umbilical hernia without obstruction or gangrene; E78.5 Hyperlipidemia, unspecified; G20 Parkinson's disease; I10 Essential (primary) hypertension; E11.622 Type 2 diabetes mellitus with other skin ulcer; E11.40 Type 2 diabetes mellitus with diabetic neuropathy, unspecified; F32.9 Major depressive disorder, single episode, unspecified; E86.1 Hypovolemia; K21.9 Gastro-esophageal reflux disease without esophagitis; F41.9 Anxiety disorder, unspecified; R55 Syncope and collapse; E11.319 Type 2 diabetes mellitus with unspecified diabetic retinopathy without macular edema; Z85.038 Personal history of other malignant neoplasm of large intestine; Z79.899 Other long term (current) drug therapy; Z79.82 Long term (current) use of aspirin; Z79.4 Long term (current) use of insulin; Z90.49 Acquired absence of other specified parts of digestive tract
CPT/HCPCS: 36415; 74177; 80048; 80053; 81001; 82962; 83605; 83690; 83735; 84100; 85025; 87040; 87086; 87088; 87426; 96361; 96365; 96366; 96372; 96375; 96376; 97110; 97162; 97166; 97530; 97535; 97802; 99218; 99285; J7030; J7040; Q9967; A4216; G0378; J2405

== ENCOUNTER → 2020-07-28 05:00 | Outpatient (REF) | payer MEDICARE, SELFPAY ==
[2020-06-14 03:12] VITALS: BMI 33.3
[2020-07-28 07:28] LABS: Hematocrit 32.3 % (37-47); Hemoglobin 10.4 g/dL (12.0-15.0); Mean Corp Hgb Conc 32.2 g/dL (32-36); Mean Corpuscular Hgb 28.3 pg (27.0-32.0); Mean Platelet Vol. 8.7 fl (6.2-12.0); Platelet Count 407 K/mm3 (150-450); RBC Distribution Width CV 14.6 % (11.6-14.6); RBC Distribution Width SD 47.2 fl (35.1-43.9); Red Blood Count 3.67 M/mm3 (4.2-5.4); White Blood Count 8.6 K/mm3 (4.4-11.0)
[2020-07-28 08:00] LABS: Anion Gap 3 (5-15); BUN 12 mg/dL (7-18); BUN/Creat Ratio 20.2 RATIO (10-20); Calcium,Total 8.2 mg/dL (8.5-10.1); Chloride 94 mmol/L (98-107); Creatinine, Serum 0.59 mg/dL (0.55-1.02); EST Glomerular Filtration Rate 105 mL/min (>60); Est Glom Filt Rate - Afr Amer 127 mL/min (>60); Glucose 43 mg/dL (74-106); Potassium 3.6 mmol/L (3.5-5.1); Sodium Level 128 mmol/L (136-145)
== END ==
LOC: OLS.WHLEAS 05:00
PROVIDERS: PCP Family Medicine; Visit Provider Family Medicine
DX: I10 Essential (primary) hypertension (principal); G20 Parkinson's disease; A09 Infectious gastroenteritis and colitis, unspecified; E86.0 Dehydration; G25.0 Essential tremor; E11.622 Type 2 diabetes mellitus with other skin ulcer; E11.40 Type 2 diabetes mellitus with diabetic neuropathy, unspecified; E87.1 Hypo-osmolality and hyponatremia
CPT/HCPCS: 36415; 80048; 85027

== ENCOUNTER → 2020-08-04 05:00 | Outpatient (REF) | payer MEDICARE, SELFPAY ==
[2020-06-14 03:12] VITALS: BMI 33.3
[2020-08-04 08:31] LABS: Anion Gap 8 (5-15); BUN 10 mg/dL (7-18); BUN/Creat Ratio 14.5 RATIO (10-20); Calcium,Total 8.9 mg/dL (8.5-10.1); Chloride 88 mmol/L (98-107); Creatinine, Serum 0.69 mg/dL (0.55-1.02); EST Glomerular Filtration Rate 88 mL/min (>60); Est Glom Filt Rate - Afr Amer 107 mL/min (>60); Glucose 113 mg/dL (74-106); Potassium 4.5 mmol/L (3.5-5.1); Sodium Level 127 mmol/L (136-145)
== END ==
LOC: OLS.WHLEAS 05:00
PROVIDERS: PCP Family Medicine; Visit Provider Family Medicine
DX: E87.1 Hypo-osmolality and hyponatremia (principal); G20 Parkinson's disease; A09 Infectious gastroenteritis and colitis, unspecified; E86.0 Dehydration; G25.0 Essential tremor; E11.622 Type 2 diabetes mellitus with other skin ulcer; E11.40 Type 2 diabetes mellitus with diabetic neuropathy, unspecified
CPT/HCPCS: 36415; 80048

== ENCOUNTER → 2020-08-11 05:00 | Outpatient (REF) | payer MEDICARE, SELFPAY ==
[2020-06-14 03:12] VITALS: BMI 33.3
[2020-08-11 07:41] LABS: Anion Gap 6 (5-15); BUN 13 mg/dL (7-18); BUN/Creat Ratio 20.6 RATIO (10-20); Calcium,Total 8.3 mg/dL (8.5-10.1); Chloride 89 mmol/L (98-107); Creatinine, Serum 0.63 mg/dL (0.55-1.02); EST Glomerular Filtration Rate 98 mL/min (>60); Est Glom Filt Rate - Afr Amer 118 mL/min (>60); Glucose 91 mg/dL (74-106); Potassium 3.5 mmol/L (3.5-5.1); Sodium Level 127 mmol/L (136-145)
== END ==
LOC: OLS.WHLEAS 05:00
PROVIDERS: PCP Family Medicine; Visit Provider Family Medicine
DX: E87.1 Hypo-osmolality and hyponatremia (principal); G20 Parkinson's disease; A09 Infectious gastroenteritis and colitis, unspecified; E86.0 Dehydration; G25.0 Essential tremor; E11.622 Type 2 diabetes mellitus with other skin ulcer; E11.40 Type 2 diabetes mellitus with diabetic neuropathy, unspecified
CPT/HCPCS: 36415; 80048

== ENCOUNTER → 2020-08-18 05:00 | Outpatient (REF) | payer MEDICARE, SELFPAY ==
[2020-06-14 03:12] VITALS: BMI 33.3
[2020-08-18 08:07] LABS: Anion Gap 6 (5-15); BUN 12 mg/dL (7-18); BUN/Creat Ratio 16.5 RATIO (10-20); Calcium,Total 9.1 mg/dL (8.5-10.1); Chloride 90 mmol/L (98-107); Creatinine, Serum 0.73 mg/dL (0.55-1.02); EST Glomerular Filtration Rate 83 mL/min (>60); Est Glom Filt Rate - Afr Amer 100 mL/min (>60); Glucose 71 mg/dL (74-106); Potassium 3.8 mmol/L (3.5-5.1); Sodium Level 127 mmol/L (136-145)
== END ==
LOC: OLS.WHLEAS 05:00
PROVIDERS: PCP Family Medicine; Visit Provider Family Medicine
DX: E87.1 Hypo-osmolality and hyponatremia (principal); G20 Parkinson's disease; A09 Infectious gastroenteritis and colitis, unspecified; E86.0 Dehydration; G25.0 Essential tremor; E11.622 Type 2 diabetes mellitus with other skin ulcer; E11.40 Type 2 diabetes mellitus with diabetic neuropathy, unspecified
CPT/HCPCS: 36415; 80048

== ENCOUNTER → 2020-08-25 05:00 | Outpatient (REF) | payer MEDICARE, SELFPAY ==
[2020-06-14 03:12] VITALS: BMI 33.3
[2020-08-25 08:06] LABS: Hematocrit 36.1 % (37-47); Hemoglobin 11.7 g/dL (12.0-15.0); Mean Corp Hgb Conc 32.4 g/dL (32-36); Mean Corpuscular Hgb 28.7 pg (27.0-32.0); Mean Corpuscular Volume 88.5 fL (81-99); Mean Platelet Vol. 8.9 fl (6.2-12.0); Platelet Count 453 K/mm3 (150-450); RBC Distribution Width CV 14.3 % (11.6-14.6); RBC Distribution Width SD 46.4 fl (35.1-43.9); Red Blood Count 4.08 M/mm3 (4.2-5.4); White Blood Count 9.1 K/mm3 (4.4-11.0)
[2020-08-25 08:22] LABS: Anion Gap 6 (5-15); BUN 13 mg/dL (7-18); BUN/Creat Ratio 18.2 RATIO (10-20); Calcium,Total 8.7 mg/dL (8.5-10.1); Chloride 90 mmol/L (98-107); Creatinine, Serum 0.72 mg/dL (0.55-1.02); EST Glomerular Filtration Rate 84 mL/min (>60); Est Glom Filt Rate - Afr Amer 102 mL/min (>60); Glucose 130 mg/dL (74-106); Sodium Level 126 mmol/L (136-145)
== END ==
LOC: OLS.WHLEAS 05:00
PROVIDERS: PCP Family Medicine; Visit Provider Family Medicine
DX: I10 Essential (primary) hypertension (principal); G20 Parkinson's disease; A09 Infectious gastroenteritis and colitis, unspecified; E86.0 Dehydration; G25.0 Essential tremor; E11.622 Type 2 diabetes mellitus with other skin ulcer; E11.40 Type 2 diabetes mellitus with diabetic neuropathy, unspecified; E87.1 Hypo-osmolality and hyponatremia
CPT/HCPCS: 36415; 80048; 85027

== ENCOUNTER → 2020-09-01 05:00 | Outpatient (REF) | payer MEDICARE, SELFPAY ==
[2020-06-14 03:12] VITALS: BMI 33.3
[2020-09-01 08:24] LABS: Anion Gap 7 (5-15); BUN 12 mg/dL (7-18); BUN/Creat Ratio 18.3 RATIO (10-20); Calcium,Total 8.9 mg/dL (8.5-10.1); Chloride 90 mmol/L (98-107); Creatinine, Serum 0.66 mg/dL (0.55-1.02); EST Glomerular Filtration Rate 93 mL/min (>60); Est Glom Filt Rate - Afr Amer 113 mL/min (>60); Glucose 70 mg/dL (74-106); Potassium 3.8 mmol/L (3.5-5.1); Sodium Level 128 mmol/L (136-145)
== END ==
LOC: OLS.WHLEAS 05:00
PROVIDERS: PCP Family Medicine; Visit Provider Family Medicine
DX: E87.1 Hypo-osmolality and hyponatremia (principal); G20 Parkinson's disease; A09 Infectious gastroenteritis and colitis, unspecified; E86.0 Dehydration; G25.0 Essential tremor; E11.622 Type 2 diabetes mellitus with other skin ulcer; E11.40 Type 2 diabetes mellitus with diabetic neuropathy, unspecified
CPT/HCPCS: 36415; 80048

== ENCOUNTER → 2020-09-08 05:00 | Outpatient (REF) | payer MEDICARE, SELFPAY ==
[2020-06-14 03:12] VITALS: BMI 33.3
[2020-09-08 08:12] LABS: Anion Gap 8 (5-15); BUN 14 mg/dL (7-18); BUN/Creat Ratio 19.8 RATIO (10-20); Calcium,Total 8.6 mg/dL (8.5-10.1); Chloride 91 mmol/L (98-107); Creatinine, Serum 0.71 mg/dL (0.55-1.02); EST Glomerular Filtration Rate 86 mL/min (>60); Est Glom Filt Rate - Afr Amer 104 mL/min (>60); Glucose 89 mg/dL (74-106); Potassium 3.9 mmol/L (3.5-5.1); Sodium Level 129 mmol/L (136-145)
== END ==
LOC: OLS.WHLEAS 05:00
PROVIDERS: PCP Family Medicine; Referring Provider Family Medicine; Visit Provider Family Medicine
DX: E87.1 Hypo-osmolality and hyponatremia (principal); G20 Parkinson's disease; A09 Infectious gastroenteritis and colitis, unspecified; E86.0 Dehydration; G25.0 Essential tremor; E11.622 Type 2 diabetes mellitus with other skin ulcer; E11.40 Type 2 diabetes mellitus with diabetic neuropathy, unspecified
CPT/HCPCS: 36415; 80048

== ENCOUNTER → 2020-09-15 05:00 | Outpatient (REF) | payer MEDICARE, SELFPAY ==
[2020-06-14 03:12] VITALS: BMI 33.3
[2020-09-15 08:25] LABS: Anion Gap 8 (5-15); BUN 10 mg/dL (7-18); BUN/Creat Ratio 16.2 RATIO (10-20); Calcium,Total 8.6 mg/dL (8.5-10.1); Chloride 91 mmol/L (98-107); Creatinine, Serum 0.62 mg/dL (0.55-1.02); EST Glomerular Filtration Rate 100 mL/min (>60); Est Glom Filt Rate - Afr Amer 121 mL/min (>60); Glucose 90 mg/dL (74-106); Potassium 3.7 mmol/L (3.5-5.1); Sodium Level 128 mmol/L (136-145)
== END ==
LOC: OLS.WHLEAS 05:00
PROVIDERS: PCP Family Medicine; Visit Provider Family Medicine
DX: E87.1 Hypo-osmolality and hyponatremia (principal); G20 Parkinson's disease; A09 Infectious gastroenteritis and colitis, unspecified; E86.0 Dehydration; E11.622 Type 2 diabetes mellitus with other skin ulcer; E11.40 Type 2 diabetes mellitus with diabetic neuropathy, unspecified
CPT/HCPCS: 36415; 80048

== ENCOUNTER → 2020-09-22 05:00 | Outpatient (REF) | payer MEDICARE, SELFPAY ==
[2020-06-14 03:12] VITALS: BMI 33.3
[2020-09-22 08:10] LABS: Hematocrit 32.1 % (37-47); Hemoglobin 10.5 g/dL (12.0-15.0); Mean Corp Hgb Conc 32.7 g/dL (32-36); Mean Corpuscular Hgb 28.8 pg (27.0-32.0); Mean Corpuscular Volume 87.9 fL (81-99); Platelet Count 430 K/mm3 (150-450); RBC Distribution Width CV 13.2 % (11.6-14.6); RBC Distribution Width SD 42.7 fl (35.1-43.9); Red Blood Count 3.65 M/mm3 (4.2-5.4); White Blood Count 9.6 K/mm3 (4.4-11.0)
[2020-09-22 08:23] LABS: Anion Gap 5 (5-15); BUN 13 mg/dL (7-18); BUN/Creat Ratio 17.7 RATIO (10-20); Calcium,Total 8.3 mg/dL (8.5-10.1); Chloride 92 mmol/L (98-107); Creatinine, Serum 0.74 mg/dL (0.55-1.02); EST Glomerular Filtration Rate 82 mL/min (>60); Est Glom Filt Rate - Afr Amer 99 mL/min (>60); Glucose 106 mg/dL (74-106); Potassium 3.7 mmol/L (3.5-5.1); Sodium Level 126 mmol/L (136-145)
== END ==
LOC: OLS.WHLEAS 05:00
PROVIDERS: PCP Family Medicine; Visit Provider Family Medicine
DX: E87.1 Hypo-osmolality and hyponatremia (principal); G20 Parkinson's disease; A09 Infectious gastroenteritis and colitis, unspecified; E86.0 Dehydration; G25.0 Essential tremor; E11.622 Type 2 diabetes mellitus with other skin ulcer; E11.40 Type 2 diabetes mellitus with diabetic neuropathy, unspecified; I10 Essential (primary) hypertension
CPT/HCPCS: 36415; 80048; 85027

== ENCOUNTER → 2020-09-29 05:00 | Outpatient (REF) | payer MEDICARE, SELFPAY ==
[2020-06-14 03:12] VITALS: BMI 33.3
[2020-09-29 08:29] LABS: Anion Gap 9 (5-15); BUN 15 mg/dL (7-18); BUN/Creat Ratio 19.5 RATIO (10-20); Calcium,Total 8.4 mg/dL (8.5-10.1); Chloride 93 mmol/L (98-107); Creatinine, Serum 0.77 mg/dL (0.55-1.02); EST Glomerular Filtration Rate 78 mL/min (>60); Est Glom Filt Rate - Afr Amer 94 mL/min (>60); Glucose 107 mg/dL (74-106); Potassium 3.7 mmol/L (3.5-5.1); Sodium Level 131 mmol/L (136-145)
== END ==
LOC: OLS.WHLEAS 05:00
PROVIDERS: PCP Family Medicine; Referring Provider Family Medicine; Visit Provider Family Medicine
DX: E87.1 Hypo-osmolality and hyponatremia (principal); G20 Parkinson's disease; A09 Infectious gastroenteritis and colitis, unspecified; E86.0 Dehydration; G25.0 Essential tremor; E11.622 Type 2 diabetes mellitus with other skin ulcer; E11.40 Type 2 diabetes mellitus with diabetic neuropathy, unspecified
CPT/HCPCS: 36415; 80048

== ENCOUNTER → 2020-10-06 05:00 | Outpatient (REF) | payer MEDICARE, SELFPAY ==
[2020-06-14 03:12] VITALS: BMI 33.3
[2020-10-06 09:15] LABS: Anion Gap 4 (5-15); BUN 14 mg/dL (7-18); Calcium,Total 8.4 mg/dL (8.5-10.1); Chloride 93 mmol/L (98-107); EST Glomerular Filtration Rate 87 mL/min (>60); Est Glom Filt Rate - Afr Amer 105 mL/min (>60); Glucose 77 mg/dL (74-106); Sodium Level 127 mmol/L (136-145)
== END ==
LOC: OLS.WHLEAS 05:00
PROVIDERS: PCP Family Medicine; Referring Provider Family Medicine; Visit Provider Family Medicine
DX: E87.1 Hypo-osmolality and hyponatremia (principal); G20 Parkinson's disease; A09 Infectious gastroenteritis and colitis, unspecified; E86.0 Dehydration; G25.0 Essential tremor; E11.622 Type 2 diabetes mellitus with other skin ulcer; E11.40 Type 2 diabetes mellitus with diabetic neuropathy, unspecified
CPT/HCPCS: 36415; 80048

== ENCOUNTER → 2020-10-13 05:00 | Outpatient (REF) | payer MEDICARE, SELFPAY ==
[2020-06-14 03:12] VITALS: BMI 33.3
[2020-10-13 08:46] LABS: Anion Gap 4 (5-15); BUN 11 mg/dL (7-18); BUN/Creat Ratio 16.4 RATIO (10-20); Calcium,Total 8.4 mg/dL (8.5-10.1); Chloride 93 mmol/L (98-107); Creatinine, Serum 0.67 mg/dL (0.55-1.02); EST Glomerular Filtration Rate 91 mL/min (>60); Est Glom Filt Rate - Afr Amer 110 mL/min (>60); Glucose 97 mg/dL (74-106); Potassium 3.8 mmol/L (3.5-5.1); Sodium Level 126 mmol/L (136-145)
== END ==
LOC: OLS.WHLEAS 05:00
PROVIDERS: PCP Family Medicine; Visit Provider Family Medicine
DX: E87.1 Hypo-osmolality and hyponatremia (principal); G20 Parkinson's disease; A09 Infectious gastroenteritis and colitis, unspecified; E86.0 Dehydration; G25.0 Essential tremor; E11.622 Type 2 diabetes mellitus with other skin ulcer; E11.40 Type 2 diabetes mellitus with diabetic neuropathy, unspecified
CPT/HCPCS: 36415; 80048

== ENCOUNTER → 2020-12-15 05:00 | Outpatient (REF) | payer MEDICARE, SELFPAY ==
[2020-12-15 06:43] LABS: Hemoglobin 11.3 g/dL (12.0-15.0); Mean Corp Hgb Conc 32.3 g/dL (32-36); Mean Corpuscular Volume 83.7 fL (81-99); Mean Platelet Vol. 8.9 fl (6.2-12.0); Platelet Count 409 K/mm3 (150-450); RBC Distribution Width CV 14.1 % (11.6-14.6); RBC Distribution Width SD 43.3 fl (35.1-43.9); Red Blood Count 4.18 M/mm3 (4.2-5.4); White Blood Count 9.6 K/mm3 (4.4-11.0)
[2020-12-15 07:05] LABS: Anion Gap 7 (5-15); BUN 11 mg/dL (7-18); BUN/Creat Ratio 16.5 RATIO (10-20); Calcium,Total 8.7 mg/dL (8.5-10.1); Chloride 91 mmol/L (98-107); Cholesterol 107 mg/dL (200); Creatinine, Serum 0.67 mg/dL (0.55-1.02); EST Glomerular Filtration Rate 92 mL/min (>60); Est Glom Filt Rate - Afr Amer 111 mL/min (>60); Glucose 78 mg/dL (74-106); High Density Lipoprotein 44 mg/dL; Sodium Level 128 mmol/L (136-145); Triglycerides 58 mg/dL; Very Low Density Lipoprotein 12 mg/dL (5-40)
[2020-12-15 08:51] LABS: Vitamin B12 1759 pg/mL (211-911); Vitamin D,25 Hydroxy 39.6 ng/mL
== END ==
LOC: OLS.WHLEAS 05:00
PROVIDERS: PCP Family Medicine; Visit Provider Family Medicine
DX: E11.40 Type 2 diabetes mellitus with diabetic neuropathy, unspecified (principal); G20 Parkinson's disease; E11.319 Type 2 diabetes mellitus with unspecified diabetic retinopathy without macular edema; I87.2 Venous insufficiency (chronic) (peripheral); I10 Essential (primary) hypertension; G25.0 Essential tremor; E86.0 Dehydration; A09 Infectious gastroenteritis and colitis, unspecified; E55.9 Vitamin D deficiency, unspecified
CPT/HCPCS: 36415; 80048; 80061; 82306; 82607; 83036; 85027

== ENCOUNTER → 2021-01-21 05:00 | Outpatient (REF) | payer MEDICARE, MEDICAID, SELFPAY ==
[2021-01-21 07:41] LABS: Hematocrit 35.4 % (37-47); Hemoglobin 11.5 g/dL (12.0-15.0); Mean Corp Hgb Conc 32.5 g/dL (32-36); Mean Corpuscular Hgb 27.8 pg (27.0-32.0); Mean Corpuscular Volume 85.5 fL (81-99); Mean Platelet Vol. 8.6 fl (6.2-12.0); Platelet Count 435 K/mm3 (150-450); RBC Distribution Width CV 14.1 % (11.6-14.6); RBC Distribution Width SD 43.9 fl (35.1-43.9); Red Blood Count 4.14 M/mm3 (4.2-5.4); White Blood Count 9.4 K/mm3 (4.4-11.0)
[2021-01-21 08:17] LABS: ALB/GLOB Ratio 0.6 RATIO (0.9-2.4); AST(SGOT) 13 U/L (15-37); Alanine Aminotransfer ALT/SGPT 11 U/L (13-56); Albumin, Serum 2.6 g/dL (3.2-5.0); Alkaline Phosphatase 84 U/L (45-117); Anion Gap 7 (5-15); BUN 11 mg/dL (7-18); BUN/Creat Ratio 14.6 RATIO (10-20); Calcium,Total 8.7 mg/dL (8.5-10.1); Chloride 89 mmol/L (98-107); Creatinine, Serum 0.75 mg/dL (0.55-1.02); EST Glomerular Filtration Rate 79 mL/min (>60); Est Glom Filt Rate - Afr Amer 96 mL/min (>60); Globulin 4.7 g/dL (2.2-4.2); Glucose 55 mg/dL (74-106); Potassium 3.6 mmol/L (3.5-5.1); Protein, Total 7.3 g/dL (6.4-8.2); Sodium Level 127 mmol/L (136-145); Thyroid Stim Hormone (TSH) 1.41 uIU/mL (0.358-3.74)
== END ==
LOC: OLS.WHLEAS 05:00
PROVIDERS: PCP Family Medicine; Visit Provider Family Medicine
DX: E11.40 Type 2 diabetes mellitus with diabetic neuropathy, unspecified (principal); G20 Parkinson's disease; E11.319 Type 2 diabetes mellitus with unspecified diabetic retinopathy without macular edema; I87.2 Venous insufficiency (chronic) (peripheral)
CPT/HCPCS: 36415; 80053; 84443; 85027

== ENCOUNTER → 2021-03-16 04:00 | Outpatient (REF) | payer MEDICARE, MEDICAID, SELFPAY ==
[2021-03-16 08:38] LABS: Hematocrit 33.5 % (37-47); Hemoglobin 11.1 g/dL (12.0-15.0); Mean Corp Hgb Conc 33.1 g/dL (32-36); Mean Corpuscular Volume 84.6 fL (81-99); Mean Platelet Vol. 8.9 fl (6.2-12.0); Platelet Count 435 K/mm3 (150-450); RBC Distribution Width CV 13.1 % (11.6-14.6); RBC Distribution Width SD 40.4 fl (35.1-43.9); Red Blood Count 3.96 M/mm3 (4.2-5.4); White Blood Count 8.5 K/mm3 (4.4-11.0)
[2021-03-16 08:46] LABS: Anion Gap 9 (5-15); BUN 12 mg/dL (7-18); BUN/Creat Ratio 13.9 RATIO (10-20); Calcium,Total 8.3 mg/dL (8.5-10.1); Chloride 90 mmol/L (98-107); Creatinine, Serum 0.86 mg/dL (0.55-1.02); EST Glomerular Filtration Rate 68 mL/min (>60); Est Glom Filt Rate - Afr Amer 82 mL/min (>60); Glucose 265 mg/dL (74-106); Potassium 3.9 mmol/L (3.5-5.1); Sodium Level 128 mmol/L (136-145)
[2021-03-16 09:03] LABS: Vitamin B12 > 2000 pg/mL (211-911)
== END ==
LOC: OLS.WHLEAS 04:00
PROVIDERS: PCP Family Medicine; Referring Provider Family Medicine; Visit Provider Family Medicine
DX: I10 Essential (primary) hypertension (principal); D51.8 Other vitamin B12 deficiency anemias; G20 Parkinson's disease; A09 Infectious gastroenteritis and colitis, unspecified; E86.0 Dehydration; G25.0 Essential tremor; E11.622 Type 2 diabetes mellitus with other skin ulcer; E11.40 Type 2 diabetes mellitus with diabetic neuropathy, unspecified
CPT/HCPCS: 36415; 80048; 82607; 85027

== ENCOUNTER → 2021-06-15 | Outpatient (REF) | payer MEDICARE, MEDICAID, SELFPAY ==
[2021-06-15 08:53] LABS: Hematocrit 34.9 % (37-47); Hemoglobin 11.3 g/dL (12.0-15.0); Mean Corp Hgb Conc 32.4 g/dL (32-36); Mean Corpuscular Hgb 27.5 pg (27.0-32.0); Mean Corpuscular Volume 84.9 fL (81-99); Mean Platelet Vol. 8.8 fl (6.2-12.0); Platelet Count 488 K/mm3 (150-450); RBC Distribution Width SD 40.3 fl (35.1-43.9); Red Blood Count 4.11 M/mm3 (4.2-5.4); White Blood Count 9.2 K/mm3 (4.4-11.0)
[2021-06-15 09:07] LABS: Anion Gap 6 (5-15); BUN 11 mg/dL (7-18); BUN/Creat Ratio 15.9 RATIO (10-20); Calcium,Total 8.7 mg/dL (8.5-10.1); Chloride 89 mmol/L (98-107); Creatinine, Serum 0.69 mg/dL (0.55-1.02); EST Glomerular Filtration Rate 87 mL/min (>60); Est Glom Filt Rate - Afr Amer 106 mL/min (>60); Glucose 121 mg/dL (74-106); Potassium 3.8 mmol/L (3.5-5.1); Sodium Level 126 mmol/L (136-145)
[2021-06-15 09:09] LABS: Vitamin B12 666 pg/mL (211-911)
[2021-06-15 09:27] LABS: Hemoglobin A1c 7.6 % (3.8-5.6)
== END | disposition home or self-care (01) ==
LOC: OLS.WHLEAS 05:00
PROVIDERS: PCP Family Medicine; Visit Provider Family Medicine
DX: G20 Parkinson's disease (principal); E11.40 Type 2 diabetes mellitus with diabetic neuropathy, unspecified; E11.319 Type 2 diabetes mellitus with unspecified diabetic retinopathy without macular edema; I87.2 Venous insufficiency (chronic) (peripheral); I10 Essential (primary) hypertension
CPT/HCPCS: 36415; 80048; 82607; 83036; 85027

== ENCOUNTER → 2021-09-14 | Outpatient (REF) | payer MEDICARE, MEDICAID, SELFPAY ==
[2021-09-14 09:14] LABS: Hematocrit 36.8 % (37-47); Hemoglobin 11.8 g/dL (12.0-15.0); Mean Corp Hgb Conc 32.1 g/dL (32-36); Mean Corpuscular Hgb 26.8 pg (27.0-32.0); Mean Corpuscular Volume 83.4 fL (81-99); Mean Platelet Vol. 9.1 fl (6.2-12.0); Platelet Count 439 K/mm3 (150-450); RBC Distribution Width CV 14.1 % (11.6-14.6); RBC Distribution Width SD 43.1 fl (35.1-43.9); Red Blood Count 4.41 M/mm3 (4.2-5.4); White Blood Count 9.2 K/mm3 (4.4-11.0)
[2021-09-14 09:31] LABS: Anion Gap 6 (5-15); BUN 16 mg/dL (7-18); BUN/Creat Ratio 19.4 RATIO (10-20); Calcium,Total 8.6 mg/dL (8.5-10.1); Chloride 89 mmol/L (98-107); Creatinine, Serum 0.82 mg/dL (0.55-1.02); EST Glomerular Filtration Rate 72 mL/min (>60); Est Glom Filt Rate - Afr Amer 87 mL/min (>60); Glucose 110 mg/dL (74-106); Potassium 4.2 mmol/L (3.5-5.1); Sodium Level 126 mmol/L (136-145)
== END | disposition home or self-care (01) ==
LOC: OLS.WHLEAS 05:00
PROVIDERS: PCP Family Medicine; Visit Provider Family Medicine
DX: I10 Essential (primary) hypertension (principal); G20 Parkinson's disease; E11.40 Type 2 diabetes mellitus with diabetic neuropathy, unspecified; E11.319 Type 2 diabetes mellitus with unspecified diabetic retinopathy without macular edema; I87.2 Venous insufficiency (chronic) (peripheral)
CPT/HCPCS: 36415; 80048; 85027

== ENCOUNTER → 2021-12-21 | Outpatient (REF) | payer MEDICARE, MEDICAID, SELFPAY ==
[2021-12-21 08:31] LABS: Hematocrit 34.7 % (37-47); Hemoglobin 11.1 g/dL (12.0-15.0); Mean Corpuscular Hgb 27.7 pg (27.0-32.0); Mean Corpuscular Volume 86.5 fL (81-99); Mean Platelet Vol. 9.2 fl (6.2-12.0); Platelet Count 468 K/mm3 (150-450); RBC Distribution Width CV 13.1 % (11.6-14.6); RBC Distribution Width SD 41.1 fl (35.1-43.9); Red Blood Count 4.01 M/mm3 (4.2-5.4); White Blood Count 8.3 K/mm3 (4.4-11.0)
[2021-12-21 08:41] LABS: Vitamin B12 519 pg/mL (211-911); Vitamin D,25 Hydroxy 38.8 ng/mL
[2021-12-21 08:46] LABS: Anion Gap 10 (5-15); BUN 19 mg/dL (7-18); BUN/Creat Ratio 21.2 RATIO (10-20); Calcium,Total 8.9 mg/dL (8.5-10.1); Chloride 90 mmol/L (98-107); Cholesterol 89 mg/dL (200); EST Glomerular Filtration Rate 65 mL/min (>60); Est Glom Filt Rate - Afr Amer 79 mL/min (>60); Glucose 61 mg/dL (74-106); High Density Lipoprotein 40 mg/dL; Sodium Level 128 mmol/L (136-145); Triglycerides 78 mg/dL; Very Low Density Lipoprotein 16 mg/dL (5-40)
[2021-12-21 08:56] LABS: Hemoglobin A1c 6.3 % (3.8-5.6)
== END ==
LOC: OLS.WHLEAS 04:00
PROVIDERS: PCP Family Medicine; Referring Provider Family Medicine; Visit Provider Family Medicine
DX: G20 Parkinson's disease (principal); E11.40 Type 2 diabetes mellitus with diabetic neuropathy, unspecified; E11.319 Type 2 diabetes mellitus with unspecified diabetic retinopathy without macular edema; I87.2 Venous insufficiency (chronic) (peripheral); E56.9 Vitamin deficiency, unspecified; I10 Essential (primary) hypertension; E78.5 Hyperlipidemia, unspecified
CPT/HCPCS: 36415; 80048; 80061; 82306; 82607; 83036; 85027

== ENCOUNTER 2022-03-01 15:34 | Emergency (ER) | payer MEDICARE, MEDICAID, SELFPAY ==
[2022-03-01 15:35] VITALS: BP 148/70; PULSE 96; RESP 17; TEMP 36.4; O2SAT 94; BMI 36.3
[2022-03-01] MEDS: 0.9% Normal Saline 1,000 ML 150 ML IV (16:04)
[2022-03-01 16:16] LABS: Mucous, Urine 0 SEEN /hpf (<or=2+); Red Blood Cells-Urine 0 SEEN /hpf (0-5)
--- NOTE | 2022-03-01 16:18 | RAD_ITS ---
STUDY: X-RAY CHEST REASON FOR EXAM: Female, 76 years old. weakness TECHNIQUE: Frontal and lateral views of the chest. COMPARISON: March 15, 2019 FINDINGS: The lungs are clear and expanded. There is no demonstrated pleural abnormality. Normal size heart. Normal mediastinum and roger. Normal visualized pulmonary arteries. Normal visualized aortic arch and descending thoracic aorta. Moderate dextroconvex scoliosis. Normal visualized ribs, clavicles, and shoulders. Gas-filled loops of colon. RAD/Chest PA and Lateral IMPRESSION: Possible ileus otherwise no acute disease Electronically Signed: Baltazar Victor MD at 16:41 EST ,
[2022-03-01 16:20] LABS: Color, Urine Yellow (Yellow); Glucose, Dipstick Normal (Normal); Ketone-Dipstick Negative (Negative); Leukocyte Esterase-Dipstick Negative /ul (Negative); Nitrite-Dipstick Negative (Negative); Occult Blood-Urine Negative /ul (Negative); Protein-Dipstick 30 mg/dl (Negative); Urine Bilirubin Dipstick Negative (Negative); Urine Clarity Sl. Cloudy (Clear); Urine Urobilinogen Normal (Normal)
[2022-03-01 16:23] LABS: Absolute Lymphocyte Count 1.16 X10^3/uL (0.83-4.51); Basophil# 0.07 X10^3/uL; Basophil% 0.7 % (0-1); Eosinophil# 0.23 X10^3/uL; Eosinophils% 2.2 % (0-5); Hematocrit 34.7 % (37-47); Hemoglobin 10.7 g/dL (12.0-15.0); Lymphocyte # 1.16 X10^3/ul (0.83-4.51); Mean Corp Hgb Conc 30.8 g/dL (32-36); Mean Corpuscular Hgb 27.2 pg (27.0-32.0); Mean Corpuscular Volume 88.1 fL (81-99); Mean Platelet Vol. 9.2 fl (6.2-12.0); Monocyte# 1.08 X10^3/uL; Monocyte% 10.2 % (0-10); NRBC Flagged by Analyzer 0 % (0-5); Neutrophil # 7.99 X10^3/uL (2.7-7.7); Neutrophil % 75.5 % (47-70); Platelet Count 459 K/mm3 (150-450); RBC Distribution Width CV 14.3 % (11.6-14.6); RBC Distribution Width SD 45.9 fl (35.1-43.9); Red Blood Count 3.94 M/mm3 (4.2-5.4); White Blood Count 10.6 K/mm3 (4.4-11.0)
[2022-03-01 16:40] LABS: Squamous Epithelial Cells - UA 10-25 SEEN /hpf (5-10)
[2022-03-01 16:41] LABS: Bacteria RARE /hpf (None Seen); White Blood Cells 0-5 SEEN /hpf (0-5); Yeast-Urine RARE /hpf (None Seen)
--- NOTE | 2022-03-01 16:43 | CT_ITS ---
STUDY: CT BRAIN WITHOUT CONTRAST REASON FOR EXAM: Female, 76 years old. fall, facial injury RADIATION DOSAGE (If Supplied By Facility): CTDIvol = ( 44.99 ) mGy, DLP = ( 812.98 ) mGycm TECHNIQUE: Transaxial CT imaging of the brain was performed without administration of intravenous contrast material. Individualized dose optimization techniques were used for this CT. COMPARISON: MRI brain April 22, 2020 FINDINGS: Right periorbital hematoma. Normal calvarium. Fluid density right mastoid air cells and middle ear cavity. There is moderate cerebral atrophy with widening of the extra-axial spaces and ventricular dilatation. There are areas of decreased attenuation within the white matter tracts of the supratentorial brain, consistent with microvascular disease changes. Normal basal ganglia and thalami. Normal brainstem. Normal cerebellum. Intracranial atherosclerosis. There is no intracranial hemorrhage. There are no findings of an acute ischemic infarction. Air-fluid level in sphenoid sinus. CT/Brain/Head without Contrast IMPRESSION: Right periorbital hematoma. Possible right otomastoiditis otherwise No acute disease intracranially. Possible sphenoid sinusitis. No definite basilar skull fracture but high-resolution temporal bone CT would be more sensitive if clinically warranted. Electronically Signed: Baltazar Victor MD at 18:11 EST ,
--- NOTE | 2022-03-01 16:43 | CT_ITS ---
STUDY: CT CERVICAL SPINE WITHOUT CONTRAST REASON FOR EXAM: Female, 76 years old. fall, head truama, + Nexus RADIATION DOSAGE (If Supplied By Facility): CTDIvol = ( 21.95 ) mGy, DLP = ( 442.69 ) mGycm TECHNIQUE: High resolution transaxial imaging was performed without contrast material. Sagittal and coronal images were reconstructed. Individualized dose optimization techniques were used for this CT. COMPARISON: None FINDINGS: Normal craniovertebral junction. Normal anterior atlantoaxial articulation. Normal odontoid process. Mild dextroconvex scoliosis. Normal cervical lordosis. Normal vertebral bodies and posterior osseous elements. C2-3: Normal endplates. Normal disc height and morphology. Normal central canal and intervertebral neuroforamina. C3-4: Normal endplates. Normal disc height and morphology. Normal central canal and intervertebral neuroforamina. C4-5: Normal endplates. Normal disc height and morphology. Normal central canal and intervertebral neuroforamina. C5-6: Normal endplates. Normal disc height and morphology. Normal central canal and intervertebral neuroforamina. C6-7: Normal endplates. Normal disc height and morphology. Normal central canal and intervertebral neuroforamina. C7-T1: Normal endplates. Normal disc height and morphology. Normal central canal and intervertebral neuroforamina. Right paracervical soft tissue mass appears to involve the area epiglottic fold on the right. CT/Spine Cervical without Contras IMPRESSION: Right paracervical soft tissue mass. Recommend soft tissue neck CT with IV contrast. No fracture. Electronically Signed: Baltazar Victor MD at 17:56 EST ,
[2022-03-01 16:55] LABS: ALB/GLOB Ratio 0.6 RATIO (0.9-2.4); AST(SGOT) 12 U/L (15-37); Alanine Aminotransfer ALT/SGPT < 6 U/L (13-56); Albumin, Serum 2.9 g/dL (3.2-5.0); Alkaline Phosphatase 84 U/L (45-117); Anion Gap 5 (5-15); BUN 18 mg/dL (7-18); BUN/Creat Ratio 18.6 RATIO (10-20); Calcium,Total 9.2 mg/dL (8.5-10.1); Chloride 92 mmol/L (98-107); Creatinine, Serum 0.97 mg/dL (0.55-1.02); EST Glomerular Filtration Rate 59 mL/min (>60); Est Glom Filt Rate - Afr Amer 72 mL/min (>60); Estimated Creatinine Clearance 41.94 ml/min; Glucose 159 mg/dL (74-106); Potassium 4.1 mmol/L (3.5-5.1); Protein, Total 7.9 g/dL (6.4-8.2); Sodium Level 129 mmol/L (136-145)
--- NOTE | 2022-03-01 17:03 | EDS_ITS ---
HPI History of Present Illness Chief Complaint: Weakness Informant: patient Narrative Narrative: Patient is a 76-year-old female with history of Parkinson's disease, type 2 diabetes mellitus with diabetic neuropathy, mild cognitive impairment, major depressive disorder, hypertension, hyperlipidemia, GERD and generalized muscle weakness presenting from nursing facility for generalized weakness. Apparently patient had decreased appetite and been generally weak for the past few days. She fell out of her wheelchair last night. Patient issues coming out of the shower. She thinks she fell asleep in her wheelchair and then fell. She did hit her face and has bruising around her right eye. She denies any loss of consciousness. No other complaints at this time. [facility] Medical History Cellulitis and abscess of mouth Diabetic neuropathy Diabetic retinopathy Essential hypertension History of colon cancer Hyperlipidemia Parkinson's disease Personal history of other malignant neoplasm of large intestine Type 2 diabetes mellitus Home Medications rosuvastatin 5 mg tablet 5 mg PO QHS 08/05/13 [History Last Taken 06/07/20] metoprolol succinate 25 mg tablet,extended release 24 hr 25 mg PO DAILY 03/15/19 [History Last Taken 06/08/20] amlodipine 5 mg tablet 5 mg PO BID bp 04/06/20 [History Last Taken 06/08/20] ascorbate calcium (vitamin C) 500 mg tablet 1,000 mg PO DAILY supplement 04/06/20 [History Last Taken 06/08/20] cholecalciferol (vitamin D3) 25 mcg (1,000 unit) capsule 25 mcg PO DAILY supplemetn 04/06/20 [History Last Taken 06/08/20] paroxetine HCl 30 mg tablet 30 mg PO DAILY 04/06/20 [History Last Taken 06/07/20] aspirin 81 mg tablet,delayed release (Adult Aspirin Regimen) 81 mg PO DAILY@0800 04/08/20 [History Last Taken 06/08/20] donepezil 10 mg tablet 10 mg PO QHS #30 tabs 04/08/20 [Rx Last Taken 06/07/20] insulin glargine 100 unit/mL (3 mL) subcutaneous pen 40 unit subcut QHS 04/08/20 [History Last Taken 06/07/20] mecobalamin (vitamin B12) 1,000 mcg chewable tablet 1,000 mcg PO DAILY 04/08/20 [History Last Taken 06/08/20] pramipexole 0.25 mg tablet 0.25 mg PO TID #90 tabs 04/08/20 [Rx Last Taken 06/08/20] carbidopa 25 mg-levodopa 100 mg tablet 2 tab PO 4X/DAY 06/08/20 [History Last Taken 06/08/20] lisinopril 20 mg tablet 20 mg PO BID bp 06/08/20 [History Last Taken 06/08/20] metformin 500 mg tablet,extended release 24 hr 500 mg PO BID dm 06/08/20 [History Last Taken 06/08/20] ondansetron 4 mg disintegrating tablet 8 mg PO Q8H PRN PRN Nausea #20 tabs 06/08/20 [Rx Last Taken Unknown] pantoprazole 40 mg tablet,delayed release 40 mg PO DAILY #14 tabs 06/08/20 [Rx Last Taken Unknown] Allergy/AdvReac Type Severity Reaction Status Date / Time codeine Allergy hives Verified 03/01/22 15:35 Family History Father Heart disease Diabetes Cancer Hypertension CVA (cerebral vascular accident) Myocardial infarction Mother Diabetes Parkinson's disease Hypertension Son Heart disease Sister , 2019 Rosalva Gehrigs disease Breast cancer Sister , 2018 CVA (cerebral vascular accident) Sister , 2014 Rosalva Gehrigs disease Brother CVA (cerebral vascular accident) Daughter CVA (cerebral vascular accident) Ovarian cancer Son , 2013 Myocardial infarction Surgical History H/O colectomy History of cataract surgery History of cholecystectomy Social History Smoking Status: Never smoker Electronic Cigarette Use: not used second hand exposure: No alcohol intake: never substance use type: does not use ROS ROS ED Constitutional Constitutional ED: Reports other Details: Decreased appetite ; Denies chills or fever(s) Eyes Eyes: Denies change in vision ENT ENT ED: Denies rhinorrhea or sore throat Cardiovascular Cardiovascular: Denies chest pain or palpitations Respiratory/Chest Respiratory/Chest: Denies cough Gastrointestinal Gastrointestinal: Denies abdominal pain, nausea or vomiting Musculoskeletal Musculoskeletal: Denies arthralgias Integumentary Reports other Details: Bruising around right eye Neurologic Neurologic: Reports weakness; Denies headache(s) or paresthesias Hematologic/Lymphatic Hematologic/Lymphatic: Denies easy bleeding or easy bruising EXAM Physical Exam Const Vital Signs: 03/01/22 15:35 03/01/22 17:49 03/01/22 19:07 Temperature 97.6 F L Temperature Source Temporal Pulse Rate 96 78 87 Respiratory Rate 17 22 H 15 Blood Pressure 148/70 H 122/67 H 180/81 H Blood Pressure Mean 96 85 114 Pulse Ox 94 95 Oxygen Delivery Method Room Air Room Air Positive well nourished and well developed General Appearance ED: well developed and NAD HEENT Reports TM's clear and dry mucous membranes HEENT Narrative: Periorbital ecchymosis on the right. Submandibular swelling of the right neck. No associated fluctuance or tenderness to palpation. Edema and masslike changes to the right tonsil. No obvious signs of trauma. trauma Tympanic Membrane ED: Yes TM's clear Mouth ED: Yes dry mucous membranes Mouth: dry mucous membranes Eyes PERRL and EOMs intact bilaterally Eyes Narrative: No conjunctival hemorrhage appreciated. Neck supple and no JVD Chest Wall inspection of chest normal and palpation of chest normal Resp normal respiratory effort and clear to auscultation bilaterally Cardio regular rate, regular rhythm and no murmurs GI normal to inspection, nondistended, normoactive bowel sounds and non-tender Back/Spine no CVA tenderness Neuro oriented x3 and no sensory deficits noted Motor Exam: strength 5/5 throughout and general weakness Psych mental status grossly normal Skin Skin Narrative: periorbital ecchymosis MDM MDM MDM Narrative Medical decision making narrative: Patient is evaluated for generalized weakness and decreased oral intake. She had a fall yesterday out of her wheelchair. On exam patient has bruising to her right periorbital area. She also has some swelling of her right submandibular area. She states its been hard to swallow which is why she is been eating and drinking left. Lab work is largely unremarkable. Urinalysis consistent with contamination. No signs of obvious infection to explain her weakness. CT of the chest interpreted by myself as well as radiology shows a possible ileus however no acute disease. Patient's abdomen is soft and nontender and she has no nausea or vomiting. Low suspicion for obstruction. CT of the brain shows a right periorbital hematoma but no fracture or intracranial process. There is possible right otomastoiditis and possible sphenoid sinusitis. This does not really fit the patient's clinical picture. CT of the neck does not show any acute process but does show paracervical soft tissue mass and recommends further evaluation with IV contrast. This is added on as well as a CT of facial bones to definitively rule out basilar skull fracture. This imaging shows extensive submucosal hemorrhage extending from the hypopharynx to the nasopharynx right greater than left and a right submandibular mass versus hematoma. Based on physical exam I do not think this is actual hemorrhage but mass. Patient has no airway compromise. She is tolerating p.o. in the ER. Because of these reasons I spoke with the hospitalist was felt that she does not require admission and work-up can be done urgently outpatient. Spoke with ENT who states that he can biopsy this in the office. Given my concern for malignancy I did submit an order for fast pass. I did attempt to call the patient's daughter however she did not answer. Patient will follow-up with Dr. Blake in the office as well as with oncology. I spoke with on-call PA for patient's PCP who is informed of these findings and need for close outpatient follow-up. Patient is informed of these findings as well. Lab Data Attestation: I reviewed the patient's lab results. Labs: Laboratory Results - last 24 hr 03/01/22 03/01/22 03/01/22 15:45 15:45 16:09 WBC 10.6 RBC 3.94 L Hgb 10.7 L Hct 34.7 L MCV 88.1 MCH 27.2 MCHC 30.8 L RDW Std Deviation 45.9 H RDW Coeff of Damon 14.3 Plt Count 459 H MPV 9.2 Immature Gran % (Auto) 0.400 Neut % (Auto) 75.5 H Lymph % (Auto) 11.0 L [place] % (Auto) 10.2 H Eos % (Auto) 2.2 Baso % (Auto) 0.7 Absolute Neuts (auto) 8.0 H Absolute Lymphs (auto) 1.16 Nucleated RBC % 0 Sodium 129 L Potassium 4.1 Chloride 92 L Carbon Dioxide 32.0 Anion Gap 5 BUN 18 Creatinine 0.97 Estim Creat Clear Calc 41.94 Est GFR (MDRD) Af Amer 72 Est GFR (MDRD) Non-Af 59 L BUN/Creatinine Ratio 18.6 Glucose 159 H Calcium 9.2 Total Bilirubin 0.60 AST 12 L ALT < 6 L Alkaline Phosphatase 84 Total Protein 7.9 Albumin 2.9 L Globulin 5.0 H Albumin/Globulin Ratio 0.6 L Urine Color Yellow Urine Clarity Sl. Cloudy Urine pH 7.0 Ur Specific [place] 1.010 Urine Protein 30 H Urine Glucose (UA) Normal Urine Ketones Negative Urine Occult Blood Negative Urine Nitrite Negative Urine Bilirubin Negative Urine Urobilinogen Normal Ur Leukocyte Esterase Negative Urine RBC 0 SEEN Urine WBC 0-5 SEEN Ur Squamous Epith Cells 10-25 SEEN Urine Bacteria RARE Urine Mucus 0 SEEN Urine Yeast RARE Radiography Diagnostic Testing: Clinical Impression(s) from Imaging Studies Chest X-Ray 03/01/22 16:18 IMPRESSION: Possible ileus otherwise no acute disease Electronically Signed: Baltazar Victor MD at 16:41 EST Reading Location ID and State: [address] [place] [address] , Service support , Brain CT 03/01/22 16:43 IMPRESSION: Right periorbital hematoma. Possible right otomastoiditis otherwise No acute disease intracranially. Possible sphenoid sinusitis. No definite basilar skull fracture but high-resolution temporal bone CT would be more sensitive if clinically warranted. Electronically Signed: Baltazar Victor MD at 18:11 EST Reading Location ID and State: [address] [place] [address] , Service support , Cervical Spine CT 03/01/22 16:43 IMPRESSION: Right paracervical soft tissue mass. Recommend soft tissue neck CT with IV contrast. No fracture. Electronically Signed: Baltazar Victor MD at 17:56 EST Reading Location ID and State: [facility] / [place] , Service support , Facial/Sinus 03/01/22 18:19 IMPRESSION: Right facial and supraglottic hematomas and possible submandibular mass versus hematoma. Mass and/or hematoma right tongue base and supraglottic airway. In the consultation and follow-up CT with IV contrast recommended. Electronically Signed: Baltazar Victor MD at 19:08 EST Reading Location ID and State: [address] [place] [address] , Service support , Soft Tissue Neck CT 03/01/22 18:19 IMPRESSION: Extensive submucosal hemorrhage extending from the hypopharynx to the nasopharynx, right greater than left. Right submandibular mass versus hematoma. Prompt ENT consultation recommended. Electronically Signed: Baltazar Victor MD at 19:23 EST Reading Location ID and State: [address] [place] [address] , Service support , ADDENDUM: 03/01/22 194 IMPRESSION: Extensive submucosal hemorrhage extending from the hypopharynx to the nasopharynx, right greater than left. Right submandibular mass versus hematoma. Prompt ENT consultation recommended. N.B. : The above Results were Read Back by Baltazar Victor MD to Hiwot Hernandez DO, and understanding confirmed on 03/01/2022 19:36:55 (ET). Electronically Signed: Baltazar Victor MD at 19:23 EST Reading Location ID and State: [address] [place] [address] , Service support , Rhythm Strip Rhythm Strip: Sinus Rhythm Rate: 79 Ectopy: None EKG Initial EKG: Attestation: I personally reviewed and interpreted this EKG as follows: Interpretation: Sinus Rhythm Comments: Normal sinus rhythm at a rate of 79 bpm First-degree AV block with a IA interval of 214 Normal axis Normal QRS and Qtc Normal ST segments Discharge Plan Triage Chief Complaint: Weakness Other Complaint: Sore Throat ED Provider: Hiwot Hernandez Dx/Rx/DC Orders Clinical Impression: Mass in neck, Difficulty in swallowing, Fall, Periorbital ecchymosis of right eye Instructions: ED Soft Diet, ED Tumor, Uncertain Cause Prescriptions: No Action ascorbate calcium (vitamin C) 500 mg tablet 1,000 mg PO DAILY paroxetine HCl 30 mg tablet 30 mg PO DAILY cholecalciferol (vitamin D3) 25 mcg (1,000 unit) capsule 25 mcg PO DAILY aspirin [Adult Aspirin Regimen] 81 mg tablet,delayed release (DR/EC) 81 mg PO DAILY@0800 mecobalamin (vitamin B12) 1,000 mcg tablet,chewable 1,000 mcg PO DAILY insulin glargine 100 unit/mL (3 mL) insulin pen 40 unit SC QHS pramipexole 0.25 mg tablet 0.25 mg PO TID Qty: 90 2RF donepezil 10 mg tablet 10 mg PO QHS Qty: 30 1RF Rx Instructions: Begin after completing one month of treatment of donepezil 5mg nightly rosuvastatin 5 MG tablet 5 mg PO QHS Label Comments: Cholesterol lowering metoprolol succinate 25 MG tablet extended release 24 hr 25 mg PO DAILY amlodipine 5 mg tablet 5 mg PO BID lisinopril 20 MG tablet 20 mg PO BID metformin 500 MG tablet extended release 24 hr 500 mg PO BID carbidopa-levodopa 1 TABLET tablet 2 tab PO 4X/DAY ondansetron 4 MG tablet 8 mg PO Q8H PRN PRN (Reason: Nausea) Qty: 20 0RF pantoprazole 40 MG tablet 40 mg PO DAILY Qty: 14 0RF Other Ambulatory Orders: Fast Pass: Oncology Referral [facility] (Routine) Facility: [facility] - Location: [facility] Ordered By: Dr. Hiwot Hernandez Primary Care Provider: Allison Shane Referrals: Allison Shane MD [Primary Care Provider] - Baltazar Blake MD [Med Staff - Active Staff] - 1 Day for another exam Activity Restrictions/Additional Instructions: No injuries to her fall are found today. No signs of infection or dehydration. Drink water and have a soft diet. You were found to have a mass below your right jaw as well as behind her nose and in your throat. Concern is that this is could be cancer. You been referred to [facility] and should be contacted tomorrow. In addition please follow-up with ear nose and throat in the next day or 2 as well for further evaluation. If you start developing difficulty breathing, drooling or cannot handle your own secretions please return immediately to the emergency room. Disposition Disposition: [facility] Facility
[2022-03-01 17:49] VITALS: BP 122/67; PULSE 78; RESP 22; O2SAT 95
--- NOTE | 2022-03-01 18:19 | CT_ITS ---
STUDY: CT FACIAL BONES WITHOUT CONTRAST REASON FOR EXAM: Female, 76 years old. facial trauma RADIATION DOSAGE (If Supplied By Facility): CTDIvol = ( 29.38 ) mGy, DLP = ( 576.84 ) mGycm TECHNIQUE: The patient was scanned in a multi detector CT scanner. Sagittal and coronal images were reconstructed. Individualized dose optimization techniques were used for this CT. COMPARISON: None. FINDINGS: Subcutaneous hematoma right periorbital region. 3.9 cm submandibular mass on the right anterior to the sternocleidomastoid muscle measuring 3.9 x 2.9 cm in AP and transverse dimensions. There also appears to be associated soft tissue mass within the piriform sinus, tongue base and supraglottic airway on the right. This appears to efface the airway. Uvula appears prominent and irregular as well. Normal orbital watkins and orbital contents. Normal nasal bones and anterior nasal spine. Normal facial bones. There is no demonstrated fracture. Normal visualized paranasal sinuses. CT/Sinus/Facial Bone IMPRESSION: Right facial and supraglottic hematomas and possible submandibular mass versus hematoma. Mass and/or hematoma right tongue base and supraglottic airway. In the consultation and follow-up CT with IV contrast recommended. Electronically Signed: Baltazar Victor MD at 19:08 EST ,
--- NOTE | 2022-03-01 18:19 | CT_ITS ---
We are attempting to reach an attending provider to discuss findings. An addendum with communication details will be sent when the communication is complete. STUDY: CT SOFT TISSUE NECK WITH CONTRAST REASON FOR EXAM: Female, 76 years old. mass RADIATION DOSAGE (If Supplied By Facility): CTDIvol = ( 15.30 ) mGy, DLP = ( 458.59 ) mGycm TECHNIQUE: The patient was scanned in a multi-detector CT scanner. High resolution transaxial imaging was performed following intravenous administration of IV 75mL Isovue-370. Sagittal and coronal images were reconstructed. Individualized dose optimization techniques were used for this CT. COMPARISON: None. FINDINGS: Normal bilateral parotid glands. Normal bilateral head concierge spaces. The right parapharyngeal space is effaced by an irregular infiltrative submucosal mass at the right tongue base. The uvula also appears enlarged, edematous and irregular. The mass extends into the piriform sinus on the right to the tongue base and into the nasopharynx. Submucosal edema/hematoma involves the left peritonsillar region also to some extent. The adjacent internal and external carotid arteries appear intact. The jugular vein is effaced and displaced posteriorly by a relatively well-circumscribed soft tissue heterogeneous mass measuring 3.6 x 2.8 cm in AP and transverse dimensions. This may or may not represent a hematoma.. Normal bilateral carotid spaces. Normal bilateral sublingual and submandibular glands and spaces. The retropharyngeal space is somewhat thickened and irregular. Normal perivertebral space. The visualized cervical lymph nodes (levels I-) are within normal size limits, and maintain normal morphology. There is no abnormal contrast enhancement. The epiglottis appears normal. The mass extends into the vallecula on the right. The pre-epiglottic and paraglottic adipose spaces are normal. Normal visualized bilateral piriform sinuses, aryepiglottic folds, vocal cords, and arytenoid-cricoid articulations. Normal subglottic trachea. Normal bilateral lobes of the thyroid gland. Normal visualized pulmonary apices. Normal visualized paranasal sinuses. Normal visualized cervical spine. CT/Soft Tissue Neck WITH Contrast IMPRESSION: Extensive submucosal hemorrhage extending from the hypopharynx to the nasopharynx, right greater than left. Right submandibular mass versus hematoma. Prompt ENT consultation recommended. Electronically Signed: Baltazar Victor MD at 19:23 EST ,
[2022-03-01 19:07] VITALS: BP 180/81; PULSE 87; RESP 15
--- NOTE | 2022-03-01 20:58 | NURSING ---
SQUAD ETA 3 TO 4 HOURS
--- NOTE | 2022-03-01 21:20 | ED.RN ---
Update given to daughter Lizz with plan of care.
--- NOTE | 2022-03-01 21:21 | ED.RN ---
Update given to Lizz, daughter, about pt plan of care.
--- NOTE | 2022-03-02 01:19 | NURSING ---
PHYSICIANS ORIGINALLY GAVE AN ETA OF 3-4 HOURS. AT THE 4 HOUR VELIA I CALLED FOR AN UPDATED ETA AND WAS TOLD IT HAS BEEN PUSHED TO MORNING P/U
[2022-03-02 01:27] VITALS: BP 121/80; PULSE 79; RESP 18; O2SAT 95
[2022-03-02] MEDS: Carbidopa/Levodopa 25/100 Tablet PO (02:09)
[2022-03-02 02:11] LABS: Bedside Glucose 246 mg/dL (74-106)
[2022-03-02 03:00] VITALS: BP 132/67; PULSE 81; RESP 16; O2SAT 97
[2022-03-02 05:00] VITALS: BP 148/58; PULSE 64; RESP 14; O2SAT 97
== END 2022-03-02 06:34 | disposition skilled nursing facility (03) ==
PROVIDERS: Emergency Provider Emergency Medicine; PCP Internal Medicine; Visit Provider Emergency Medicine
DX: S05.11XA Contusion of eyeball and orbital tissues, right eye, initial encounter (principal); E11.40 Type 2 diabetes mellitus with diabetic neuropathy, unspecified; I10 Essential (primary) hypertension; E78.5 Hyperlipidemia, unspecified; R13.10 Dysphagia, unspecified; R22.1 Localized swelling, mass and lump, neck; W19.XXXA Unspecified fall, initial encounter
CPT/HCPCS: 70450; 70486; 70491; 71046; 72125; 80053; 81001; 82962; 85025; 87428; 93005; 96360; 96361; 99284; J7030; Q9967; A4216

== ENCOUNTER → 2022-03-20 | Outpatient (CLI) | payer MEDICARE, MEDICAID, SELFPAY ==
--- NOTE | 2022-03-20 | ASPOS_PTH ---
PATIENT: EUGENE OWENS LOC: [facility] U#:[id number] AGE/SX: 76/F ROOM: RE03/20/[address]: Dr. Osman Carias MD : 1945 BED: DIS: 03/20/2022 SPEC #: [id number] RECD: 03/20/22 10:47 STATUS: LUIS RECarolina #: [id number] WESLEY: 03/20/22 00:[address]: Osman Carias DEPT: CYTOLOGY RECD BY: Wilfredo Fontanez ENTERED: 03/20/22 10:48 SP TYPE: ASP HERE OTHR DR: Dr. Allison Shane MD Tissues: Neck, NOS Procedures: Surgery Specimen Level IV Cytology Other Fine Needle Asp on Site HEADER OPERATION: Fine needle aspiration right neck mass PRE-OP DIAGNOSIS: Mass of right neck TISSUE SUBMITTED: Right neck mass DIAGNOSIS CYTOLOGY Fine needle aspiration, right neck mass (smears and cell block): Atypical epithelioid cells present. See cytology study and comment. AM:chana 03/22/2022 COMMENT Flow cytometry and Immunohistochemical analysis ([id number]) of the cell block for lymphoproliferative disorder reveals no evidence of B-cell or T-cell lymphoma but shows positivity for proliferation marker Ki 67. The cell block is markedly hypocellular. One destained Diff Q. smear is re stained with maria keratin immunohistochemical marker and shows diffuse positivity. An incisional biopsy is recommended for definitive classification. Case has been reviewed in consultation with Dr. Cheatham who concurs with the above diagnosis. IDC:SJ CYTOLOGY STUDY Slides are reviewed. The smears show scattered atypical crushed epithelioid cells suspicious for a malignant neoplasm. CYTOLOGY GROSS Received is 0.2 ml of reddish fluid labeled with the patient's name, and designated right neck mass. Three imprints and two paps are made from the submitted fluid and the rest is added to CytoLyt for cell block preparation. Submitted for cytology study. / AM:chana 03/20/2022 TC:? CPT: 68230, 74435, 26291, 32790
--- NOTE | 2022-03-20 | IMM_PTH ---
PATIENT: EUGENE OWENS LOC: [facility] U#:[id number] AGE/SX: 76/F ROOM: RE03/20/[address]: Dr. Osman Carias MD : 1945 BED: DIS: 03/20/2022 SPEC #: [id number] RECD: 03/21/22 12:22 STATUS: LUIS REQ #: [id number] WESLEY: 03/20/22 00:[address]: Osman Carias DEPT: IMMUNOHISTOCHEMISTRY RECD BY: Jamee Gerardo ENTERED: 03/21/22 12:24 SP TYPE: IMMUNO OTHR DR: Dr. Allison Shane MD Tissues: Neck, NOS Procedures: Synapto (add) BCL-2 (add) CD20 (add) CD45 (add) CD5 (add) CD56 (add) CD79A (add) CHROMO (add) CK7 (add) KI-67 (add) Pankeratin (add) NSE (add) CD3 (initial) PHYSICIAN & [address] [address] SPECIMEN INFORMATION: Tissue Source: Right neck mass Clinical Info: Right neck mass Specimen Number: [id number] CPT code: 72111, 44061 x12 METHODOLOGY: Deparaffinized sections of prefer/formalin-fixed tissue or PAP/DQ stained slides are incubated with monoclonal/polyclonal antibodies/oligonucleotide probes. Localization is made via biotin free immunoperoxidase method. Appropriate controls are performed and reacted as expected. Results on target cell population are indicated in the following table: RESULTS: ANTIBODY / CLONE RESULT CELL BLOCK CD3 (PS1) negative CD5 (SP10) negative CD20 (L26) positive, rare cells CD45 (RP2/18) positive, rare cells CD79a (11E3) positive, rare cells BCL-2 (bcl-2/100/D5) positive, rare cells AE1-3 (AE1/AE3/PCK26) negative CK7 (OV-TL12/30) negative CD56 (123C3.D5) negative Chromo (LK2H10) negative Synapto (polyclonal) negative NSE Neuron Specific Enolase negative Ki-67 (30-9) positive SMEAR AE1-3 (AE1/AE3/PCK26) positive These tests were developed and their performance characteristics determined by [facility]. They may not have been cleared or approved by the U.S. Food and Drug Administration. The FDA has determined that such clearance or approval is not necessary. The above immunohistochemical/dualISH markers are ordered and reviewed by the Pathologist. INTERPRETATION: Right neck mass, fine needle aspiration: Atypical epithelioid cells present. Comment: A malignant lesion is suspected. An incisional biopsy is recommended for definitive classification. AM:chana 03/23/2022
== END | disposition home or self-care (01) ==
LOC: LAB 09:25
PROVIDERS: PCP Internal Medicine; Referring Provider Otolaryngology; Visit Provider Otolaryngology
DX: R22.1 Localized swelling, mass and lump, neck (principal)
CPT/HCPCS: 10021; 88161; 88305; 88341; 88342

== ENCOUNTER → 2022-03-22 | Outpatient (REF) | payer MEDICAID, SELFPAY ==
[2022-03-22 08:02] LABS: Hematocrit 30.3 % (37-47); Hemoglobin 9.9 g/dL (12.0-15.0); Mean Corp Hgb Conc 32.7 g/dL (32-36); Mean Corpuscular Hgb 28.4 pg (27.0-32.0); Mean Corpuscular Volume 87.1 fL (81-99); Mean Platelet Vol. 9.2 fl (6.2-12.0); Platelet Count 353 K/mm3 (150-450); RBC Distribution Width CV 14.3 % (11.6-14.6); RBC Distribution Width SD 45.2 fl (35.1-43.9); Red Blood Count 3.48 M/mm3 (4.2-5.4); White Blood Count 7.5 K/mm3 (4.4-11.0)
[2022-03-22 08:13] LABS: Anion Gap 8 (5-15); BUN 22 mg/dL (7-18); BUN/Creat Ratio 19.6 RATIO (10-20); Calcium,Total 8.2 mg/dL (8.5-10.1); Chloride 92 mmol/L (98-107); Creatinine, Serum 1.12 mg/dL (0.55-1.02); EST Glomerular Filtration Rate 50 mL/min (>60); Est Glom Filt Rate - Afr Amer 61 mL/min (>60); Glucose 101 mg/dL (74-106); Potassium 3.8 mmol/L (3.5-5.1); Sodium Level 129 mmol/L (136-145)
[2022-03-22 08:53] LABS: Vitamin B12 772 pg/mL (211-911)
== END ==
LOC: OLS.WHLEAS 05:00
PROVIDERS: PCP Internal Medicine; Visit Provider Internal Medicine
DX: G20 Parkinson's disease (principal); E11.40 Type 2 diabetes mellitus with diabetic neuropathy, unspecified; E11.319 Type 2 diabetes mellitus with unspecified diabetic retinopathy without macular edema; I87.2 Venous insufficiency (chronic) (peripheral); I10 Essential (primary) hypertension
CPT/HCPCS: 36415; 80048; 82607; 85027

== ENCOUNTER 2022-04-13 14:22 | Inpatient (IN) | payer MEDICARE, MEDICAID, SELFPAY ==
[2022-04-13] VITALS (15 sets, daily range): BP systolic 70–145; BP diastolic 40–111; PULSE 63–85; RESP 12–18; TEMP 36.1–36.5; O2SAT 68–100; BMI 26.9; BMI 29.2
--- NOTE | 2022-04-13 14:47 | CT_ITS ---
STUDY: CT BRAIN WITHOUT CONTRAST REASON FOR EXAM: Female, 76 years old. seizure RADIATION DOSAGE (If Supplied By Facility): CTDIvol = ( 44.99 ) mGy, DLP = ( 796.11 ) mGycm TECHNIQUE: Transaxial CT imaging of the brain was performed without administration of intravenous contrast material. Individualized dose optimization techniques were used for this CT. COMPARISON: 03/01/2022. FINDINGS: Normal calvarium. There is mild cerebral atrophy with widening of the extra-axial spaces and ventricular dilatation. There are areas of decreased attenuation within the white matter tracts of the supratentorial brain, consistent with microvascular disease changes. There is no intracranial hemorrhage. No acute territorial infarct. Mild mucosal thickening in the maxillary sinuses. Near-complete opacification of the right mastoid sinus. Partial opacification of the middle ear cavity including Prussak''s space. Marked thickening of the nasopharyngeal wall with prominence of the torus tubarius, greater on the right, and effacement of the fossae of Rosenmuller, greater on the right. Marked thickening of the visualized parapharyngeal soft tissues with obliteration of the visualized right parapharyngeal fat, partially imaged. CT/Brain/Head without Contrast IMPRESSION: No acute intracranial findings. Thickening of the nasopharyngeal wall and right nasopharyngeal and parapharyngeal soft tissues bilaterally suspicious for malignancy. Please refer to PET/CT performed 04/12/2022. Microvascular ischemic changes. Atrophy. Soft tissue density in the right middle ear and mastoid sinus suspicious for cholesteatoma. Mild chronic sinusitis. Electronically Signed: Angela Arreguin MD at 16:26 EST Reading Location ID and State: [id number] / Tel , Service support ,
--- NOTE | 2022-04-13 14:51 | EX.ED.DYSGE1 ---
HPI History of Present Illness Chief Complaint: Syncope Narrative Narrative: Patient presents from an ECF. She complains this is syncope, however she was not witnessed passing the best I can get from the ECF history is that the patient had some decreased responsiveness, she was ashen and at the time was thought to be hypotensive. She has a tremor which has not changed and it makes it difficult to say if the patient had a seizure or not. She had a recent neck mass with biopsy and had a PET scan yesterday which showed multiple mets to the abdominal cavity and lungs, as well as the lymph nodes. No prior seizure history. She has no recollection to the event however she is slightly confused. [facility] Medical History Cellulitis and abscess of mouth Diabetic neuropathy Diabetic retinopathy Essential hypertension History of colon cancer Hyperlipidemia Parkinson's disease Personal history of other malignant neoplasm of large intestine Type 2 diabetes mellitus Home Medications lisinopril 20 mg tablet 20 mg PO DAILY bp 06/08/20 [History Last Taken 04/13/22] ondansetron 4 mg disintegrating tablet 4 mg PO Q4H PRN Nausea 03/02/22 [History Last Taken Unknown] aspirin 81 mg chewable tablet 81 mg PO DAILY HEALTH MAINTENANCE 04/13/22 [History Last Taken 04/13/22] carbidopa 25 mg-levodopa 100 mg tablet 1 tab PO 4X/DAY 04/13/22 [History Last Taken 04/13/22] donepezil 5 mg tablet 5 mg PO QHS MEMORY 04/13/22 [History Last Taken Unknown] famotidine 20 mg tablet (Pepcid) 20 mg PO BID GERD 04/13/22 [History Last Taken 04/13/22] metoprolol tartrate 25 mg tablet 25 mg PO BID HEART 04/13/22 [History Last Taken 04/13/22] nut tx, lact-reduced, iron 0.09 gram-2.25 kcal/mL oral liquid (Boost VHC) 120 ml PO TID SUPPLEMENT 04/13/22 [History Last Taken 04/13/22] paroxetine HCl 10 mg tablet 10 mg PO DAILY MOOD 04/13/22 [History Last Taken 04/13/22] pramipexole 0.5 mg tablet 0.5 mg PO TID RLS 04/13/22 [History Last Taken 04/13/22] Allergy/AdvReac Type Severity Reaction Status Date / Time codeine Allergy hives Verified 04/13/22 14:40 Family History Father Heart disease Diabetes Cancer Hypertension CVA (cerebral vascular accident) Myocardial infarction Mother Diabetes Parkinson's disease Hypertension Son Heart disease Sister , 2018 Rosalva Gehrigs disease Breast cancer Sister , 2017 CVA (cerebral vascular accident) Sister , 2014 Rosalva Gehrigs disease Brother CVA (cerebral vascular accident) Daughter CVA (cerebral vascular accident) Ovarian cancer Son , 2013 Myocardial infarction Surgical History H/O colectomy History of cataract surgery History of cholecystectomy Social History Smoking Status: Never smoker Electronic Cigarette Use: not used second hand exposure: No alcohol intake: never substance use type: does not use ROS ROS ED ROS Narrative Past medical history: Reviewed, includes Parkinson's, diabetes, venous insufficiency, new diagnosis of cancer, dementia, depression, hypertension, hyperlipidemia, dysphagia, GERD Medications: Reviewed Social history: Noncontributory Review of systems: Unable secondary to patient's mental status EXAM Physical Exam Narrative Exam Narrative: Physical exam General: Patient appears chronically ill. She appears uncomfortable she has a baseline tremor. Head: Normocephalic, Atraumatic Eyes: Conjunctiva not pale ENT: Somewhat dry mucous membranes Neck: Supple, right anterior neck mass Cardiovascular: Regular rate, Regular rhythm, no obvious murmur Respiratory: Coarse bilateral breath sounds Abdomen: Soft, Nontender, Nondistended Back: Nontender, Normal Inspection. Negative for: CVA tenderness Extremities: Nontender, No edema Skin: Normal color, No rash Neurological: Alert, oriented to person and place, she is confused to minor details. She has no focal deficit. She has a baseline resting tremor Const Vital Signs: 04/13/22 14:23 04/13/22 14:40 04/13/22 14:41 Temperature 97.2 F L Temperature Source Temporal Pulse Rate 85 71 Respiratory Rate 18 18 Respiratory Effort Normal Respiratory Pattern Normal Blood Pressure 145/111 H 109/85 H Blood Pressure Mean 122 93 Pulse Ox 96 68 Oxygen Delivery Method Room Air 04/13/22 15:12 04/13/22 15:25 04/13/22 15:30 Temperature 97.4 F L Temperature Source Oral Pulse Rate 72 66 65 Respiratory Rate 16 16 16 Respiratory Effort Respiratory Pattern Blood Pressure 87/44 L 88/48 L 88/44 L Blood Pressure Mean 58 61 58 Pulse Ox 98 98 98 Oxygen Delivery Method Room Air Room Air Room Air 04/13/22 15:40 04/13/22 15:52 04/13/22 16:20 Temperature Temperature Source Pulse Rate 68 67 Respiratory Rate 18 16 Respiratory Effort Respiratory Pattern Blood Pressure 70/58 L 105/70 102/50 L Blood Pressure Mean 62 81 67 Pulse Ox 98 99 Oxygen Delivery Method Room Air Room Air 04/13/22 17:06 Temperature 97.0 F L Temperature Source Temporal Pulse Rate 70 Respiratory Rate 16 Respiratory Effort Respiratory Pattern Blood Pressure 100/73 Blood Pressure Mean 82 Pulse Ox 98 Oxygen Delivery Method Room Air MDM MDM MDM Narrative Medical decision making narrative: A. Problems addressed Patient has cancer, the PET scan shows significant metastases to the chest and abdominal wall cavity as well as lymph nodes. She is hypotensive, which was addressed, she has a UTI which is addressed with antibiotics. I had a long discussion with the family about possible palliation especially that she has metastatic lung disease and she is DNR to begin with. She will be admitted she will get treatment for her UTI, they do not want central lines intubations or any severe resuscitative measures. This seems quite reasonable. B. Amount and/or complexity of the data (2 out of 3) 1. Reviewed of ECF paperwork and nursing documentation from the ECF. Patient has a UTI, she has leukocytosis and hyponatremia. I discussed the patient with her daughter who was in the room, she told me about the recent PET scan and recent biopsy as well as her normal baseline, patient is not at her baseline currently. 2. Independent interpretation of test Telemetry: Sinus rhythm in the 80s. 3. I discussed the patient with social work, about valuation, I also discussed with hospitalist for admission. C. Risk of complications and/or morbidity Patient has hyponatremia. She has hypotension which improved with fluids, she is septic with lactic acidosis. She has leukocytosis and a UTI. She has metastatic cancer which was just diagnosed. I had a long discussion with family about palliation and end-of-life care. Lab Data Labs: Laboratory Results - last 24 hr 04/13/22 04/13/22 04/13/22 14:55 14:55 14:55 WBC 16.2 H RBC 4.17 L Hgb 12.0 Hct 36.3 L MCV 87.1 MCH 28.8 MCHC 33.1 RDW Std Deviation 47.7 H RDW Coeff of Damon 14.9 H Plt Count 417 MPV 9.3 Sodium 125 L Potassium 4.0 Chloride 89 L Carbon Dioxide 23.0 Anion Gap 13 BUN 49 H Creatinine 2.53 H Estim Creat Clear Calc 16.08 Est GFR (MDRD) Af Amer 24 L Est GFR (MDRD) Non-Af 20 L BUN/Creatinine Ratio 19.4 Glucose 236 H Lactic Acid 2.6 H* Calcium 9.1 Total Bilirubin 0.90 AST 14 L ALT < 6 L Alkaline Phosphatase 77 Total Protein 7.1 Albumin 2.5 L Globulin 4.6 H Albumin/Globulin Ratio 0.5 L Urine Color Urine Clarity Urine pH Ur Specific [place] Urine Protein Urine Glucose (UA) Urine Ketones Urine Occult Blood Urine Nitrite Urine Bilirubin Urine Urobilinogen Ur Leukocyte Esterase Urine RBC Urine WBC Ur Squamous Epith Cells Urine Bacteria Urine Mucus 04/13/22 15:26 WBC RBC Hgb Hct MCV MCH MCHC RDW Std Deviation RDW Coeff of Damon Plt Count MPV Sodium Potassium Chloride Carbon Dioxide Anion Gap BUN Creatinine Estim Creat Clear Calc Est GFR (MDRD) Af Amer Est GFR (MDRD) Non-Af BUN/Creatinine Ratio Glucose Lactic Acid Calcium Total Bilirubin AST ALT Alkaline Phosphatase Total Protein Albumin Globulin Albumin/Globulin Ratio Urine Color Yellow Urine Clarity Cloudy Urine pH 7.0 Ur Specific [place] 1.010 Urine Protein 100 H Urine Glucose (UA) Normal Urine Ketones 15 H Urine Occult Blood 150 H Urine Nitrite Positive H Urine Bilirubin Negative Urine Urobilinogen Normal Ur Leukocyte Esterase 500 H Urine RBC 0 SEEN Urine WBC >100 SEEN Ur Squamous Epith Cells 0 SEEN Urine Bacteria 2+ Urine Mucus 0 SEEN Radiography Diagnostic Testing: Clinical Impression(s) from Imaging Studies Brain CT 04/13/22 14:47 IMPRESSION: No acute intracranial findings. Thickening of the nasopharyngeal wall and right nasopharyngeal and parapharyngeal soft tissues bilaterally suspicious for malignancy. Please refer to PET/CT performed 04/12/2022. Microvascular ischemic changes. Atrophy. Soft tissue density in the right middle ear and mastoid sinus suspicious for cholesteatoma. Mild chronic sinusitis. Electronically Signed: Angela Arreguin MD at 16:26 EST Reading Location ID and State: [place] / Tel , Service support , Chest X-Ray 04/13/22 16:05 IMPRESSION: No acute cardiopulmonary disease. Electronically Signed: Angela Arreguin MD at 16:27 EST Reading Location ID and State: [place] / Tel , Service support , Chest x-ray read by me as no acute findings. Radiologist agrees. Critical Care Time Critical care time (excluding procedures): 30-74 minutes, Including time spent:, Discussing w/Patient &/or Family/[place], Discussing w/Consultants, Arranging Admission or Transfer, Performing Direct Patient Care at Bedside and - (35 minutes of critical care time was spent by me.) Discharge Plan Triage Chief Complaint: Syncope ED Provider: Arpit Yi Dx/Rx/DC Orders Clinical Impression: Acute hyponatremia, Acute hypotension, Sepsis, Acidosis, lactic, Acute UTI, Leukocytosis, Metastatic cancer, End of life care Prescriptions: No Action lisinopril 20 MG tablet 20 mg PO DAILY ondansetron 4 MG tablet,disintegrating 4 mg PO Q4H PRN (Reason: Nausea) paroxetine HCl 10 mg tablet 10 mg PO DAILY donepezil 5 mg tablet 5 mg PO QHS Label Comments: 1po qday pramipexole 0.5 mg tablet 0.5 mg PO TID Label Comments: 1po qday famotidine [Pepcid] 20 mg Tablet 20 mg PO BID aspirin [Aspirin Low-Strength] 81 mg Tablet,Chewable 81 mg PO DAILY carbidopa-levodopa 25-100 mg tablet 1 tab PO 4X/DAY Label Comments: 1po qid metoprolol tartrate 25 mg tablet 25 mg PO BID Boost VHC 0.09-2.25 gram-kcal/mL Liquid 120 ml PO TID Primary Care Provider: Allison Shane Referrals: Allison Shane MD [Primary Care Provider] - Disposition Disposition: Acute Care Hospital [facility]
[2022-04-13] MEDS: 0.9% Normal Saline 1,000 ML 999 ML IV ×2 (15:08→15:45)
--- NOTE | 2022-04-13 15:12 | ED.RN ---
DR NOTIFIED OF CONSISTENTLY LOW BP. STATED 1000ML BOLUS. SEPSIS BLOODWORK INTITIATED
[2022-04-13 15:13] LABS: Hematocrit 36.3 % (37-47); Mean Corp Hgb Conc 33.1 g/dL (32-36); Mean Corpuscular Hgb 28.8 pg (27.0-32.0); Mean Corpuscular Volume 87.1 fL (81-99); Mean Platelet Vol. 9.3 fl (6.2-12.0); Platelet Count 417 K/mm3 (150-450); RBC Distribution Width CV 14.9 % (11.6-14.6); RBC Distribution Width SD 47.7 fl (35.1-43.9); Red Blood Count 4.17 M/mm3 (4.2-5.4); White Blood Count 16.2 K/mm3 (4.4-11.0)
[2022-04-13 15:24] LABS: ALB/GLOB Ratio 0.5 RATIO (0.9-2.4); AST(SGOT) 14 U/L (15-37); Alanine Aminotransfer ALT/SGPT < 6 U/L (13-56); Albumin, Serum 2.5 g/dL (3.2-5.0); Alkaline Phosphatase 77 U/L (45-117); Anion Gap 13 (5-15); BUN 49 mg/dL (7-18); BUN/Creat Ratio 19.4 RATIO (10-20); Calcium,Total 9.1 mg/dL (8.5-10.1); Chloride 89 mmol/L (98-107); Creatinine, Serum 2.53 mg/dL (0.55-1.02); EST Glomerular Filtration Rate 20 mL/min (>60); Est Glom Filt Rate - Afr Amer 24 mL/min (>60); Estimated Creatinine Clearance 16.08 ml/min; Globulin 4.6 g/dL (2.2-4.2); Glucose 236 mg/dL (74-106); Protein, Total 7.1 g/dL (6.4-8.2); Sodium Level 125 mmol/L (136-145)
[2022-04-13 15:31] LABS: Mucous, Urine 0 SEEN /hpf (<or=2+); Red Blood Cells-Urine 0 SEEN /hpf (0-5); Squamous Epithelial Cells - UA 0 SEEN /hpf (5-10)
[2022-04-13] MEDS: Ondansetron 4 MG/2 ML Vial IV (15:40)
[2022-04-13 16:02] LABS: Lactic Acid 2.6 mmol/L (0.4-1.9)
[2022-04-13 16:05] LABS: Color, Urine Yellow (Yellow); Glucose, Dipstick Normal (Normal); Ketone-Dipstick 15 mg/dl (Negative); Leukocyte Esterase-Dipstick 500 /ul (Negative); Nitrite-Dipstick Positive (Negative); Occult Blood-Urine 150 /ul (Negative); Protein-Dipstick 100 mg/dl (Negative); Urine Bilirubin Dipstick Negative (Negative); Urine Clarity Cloudy (Clear); Urine Urobilinogen Normal (Normal)
--- NOTE | 2022-04-13 16:05 | RAD_ITS ---
INDICATION: weakness EXAMINATION/TECHNIQUE: X-RAY - XR Chest 1 View COMPARISON: 03/01/2022. FINDINGS: LINES/DEVICES: None. LUNGS: No consolidation, edema or effusion. No pneumothorax. MEDIASTINUM AND CARDIOVASCULAR STRUCTURES: Cardiac silhouette not enlarged. Central airways and mediastinal contour are unremarkable. BONES AND SOFT TISSUES: Unremarkable. RAD/Chest 1 View (Portable) IMPRESSION: No acute cardiopulmonary disease. Electronically Signed: Angela Arreguin MD at 16:27 EST Reading Location ID and State: [id number] / Tel , Service support ,
[2022-04-13 16:38] LABS: Bacteria 2+ /hpf (None Seen); White Blood Cells >100 SEEN /hpf (0-5)
[2022-04-13] MEDS: Ceftriaxone 1 GM/50 ML BAG IV (17:45)
[2022-04-13 18:29] LABS: Magnesium 1.7 mg/dL (1.6-2.6); Phosphorus 4.4 mg/dL (2.5-4.9)
[2022-04-13 19:03] LABS: Reflex Lactate? Y
--- NOTE | 2022-04-13 20:09 | PCM.HP.STD ---
HPI - General General Date of Admission: 04/13/22 Date of Service: 04/13/22 Chief Complaint: Hypotensive episode at facility with suspected hypoperfusion/near syncope, recent suprapubic discomfort, increased fatigue/malaise at SNF, poor intake, N/V. HPI Narrative The patient is a 76 y/o F w/ PMHx: Parkinson's disease w/ associated dementia without behavioral disturbance history, Chronic BL LE Lymphedema, PVD, HTN, HLD, Diabetes mellitus type II with neuropathy, Hx Colon CA s/p resection/colostomy s/p reversal, recent 03/20/22 cervical notably sized lymph node with Bx obtained R neck with FNA with atypical ethmoidal cells with cytology with smear demonstrating scattered atypical crushed epithelial cells suspicious for malignant neoplasm with planned outpatient continued follow-up for cancer with recent PET scan obtained 04/12/2022 and awaiting final read however ED did discuss case with radiology and they reported preliminarily appearance of significant metastatic diffuse disease who presents to the [facility] ED on 04/13/22 secondary to notable suspected hypoperfusion event at facility likely secondary to sepsis with onset diaphoresis, significant encephalopathy, transient hypothermia with BP 70/45 reportedly also blue in appearance prompting EMS call and transition to the hospital for evaluation. Patient's family reports that over the last several weeks whenever the patient tries to eat or drink sometimes will just come up her nose therefore she is not really tolerated intake at all well but of note has been adamantly opposed to any PEG tube placement concept. Work-up the ED included T97.2, heart rate 85, BP initially reported as 145/111 however decreased to 70/58, respiratory rate 18, 96% on room air, most recent vital signs BP 101/76, respiratory rate 16, 94% on room air, CBC with WC 16.2, hemoglobin 12, platelet 417 without differential performed, CMP with sodium 125, chloride 89, BUN/creat 49/2.53, glucose 236, lactic acid 2.6, hepatic profile not marked appearing, urinalysis with specific gravity 1.010, protein 100, ketone 15, occult blood 150, positive nitrite, leukocyte Estrace 500, urine WBCs greater than 100 with 2+ urine bacteria, urine culture pending per ED, blood culture x2 pending per ED, chest x-ray with no acute cardiopulmonary findings, CT brain with no acute intracranial findings with thickening of the nasopharyngeal wall and right nasopharyngeal and parapharyngeal soft tissues bilaterally suspicious for malignancy, microvascular ischemic changes and atrophy, soft tissue density in the right middle ear and mastoid sinus suspicious for possible cholesteatoma, mild chronic sinusitis. In the ED patient administered 2 L normal saline, IV Rocephin as well as IV Zofran 4 mg x 1. ED physician did contact radiology to review PET scan and although no formal read is in place radiology did report significant evidence of metastatic disease throughout the body. Discussed current presentation with patient's daughter who is present in the room and with patient and given concerns of poor oral intake, difficulty to even tolerate any oral intake with episodes of nausea and emesis and progressive decline with PET scan likely demonstrating metastatic disease and CT head findings and they would prefer to have consultation with palliative and hospice but amenable to continuing IV fluids and IV antibiotics for UTI at this time. They do not want any aggressive measures including procedures, pressors. [facility] Medical History (Updated 04/13/22 @ 19:[address] Betty Denis MD) Diabetic neuropathy Essential hypertension History of colon cancer Hyperlipidemia Parkinson's disease Type 2 diabetes mellitus Home Medications lisinopril 20 mg tablet 20 mg PO DAILY bp 06/08/20 [History Last Taken 04/13/22] ondansetron 4 mg disintegrating tablet 4 mg PO Q4H PRN Nausea 03/02/22 [History Last Taken Unknown] aspirin 81 mg chewable tablet 81 mg PO DAILY HEALTH MAINTENANCE 04/13/22 [History Last Taken 04/13/22] carbidopa 25 mg-levodopa 100 mg tablet 1 tab PO 4X/DAY 04/13/22 [History Last Taken 04/13/22] donepezil 5 mg tablet 5 mg PO QHS MEMORY 04/13/22 [History Last Taken Unknown] famotidine 20 mg tablet (Pepcid) 20 mg PO BID GERD 04/13/22 [History Last Taken 04/13/22] metoprolol tartrate 25 mg tablet 25 mg PO BID HEART 04/13/22 [History Last Taken 04/13/22] nut tx, lact-reduced, iron 0.09 gram-2.25 kcal/mL oral liquid (Boost VHC) 120 ml PO TID SUPPLEMENT 04/13/22 [History Last Taken 04/13/22] paroxetine HCl 10 mg tablet 10 mg PO DAILY MOOD 04/13/22 [History Last Taken 04/13/22] pramipexole 0.5 mg tablet 0.5 mg PO TID RLS 04/13/22 [History Last Taken 04/13/22] Allergy/AdvReac Type Severity Reaction Status Date / Time codeine Allergy hives Verified 04/13/22 14:40 Family History Father Heart disease Diabetes Cancer Hypertension CVA (cerebral vascular accident) Myocardial infarction Mother Diabetes Parkinson's disease Hypertension Son Heart disease Sister , 2018 Rosalva Gehrigs disease Breast cancer Sister , 2017 CVA (cerebral vascular accident) Sister , 2014 Rosalva Gehrigs disease Brother CVA (cerebral vascular accident) Daughter CVA (cerebral vascular accident) Ovarian cancer Son , 2013 Myocardial infarction Surgical History H/O colectomy History of cataract surgery History of cholecystectomy Social History (Updated 04/13/22 @ 19:[address] Betty Denis MD) housing: long-term Smoking Status: Never smoker Electronic Cigarette Use: not used second hand exposure: No alcohol intake: never substance use type: does not use ROS ROS Narrative Admission Review of Systems: CONSTITUTIONAL: No specific fevers, + weight loss, chills, weakness or fatigue. HEENT: + Notable R lateral neck mass s/p recent Bx. Eyes: No visual loss, blurred vision, double vision or yellow sclerae. Ears, Nose, Throat: No hearing loss, sneezing, congestion, runny nose or sore throat. SKIN: No rash or itching, lesions, wounds, + except occasional staged ecchymoses. CARDIOVASCULAR: + Chronic edema, near syncopal event with suspect hypoperfusion as etiology secondary to sepsis, no chest pain, chest pressure or chest discomfort, palpitations, edema, orthopnea, syncopal events. RESPIRATORY: No shortness of breath, cough or sputum, wheezing, hemoptysis. GASTROINTESTINAL: + anorexia, nausea, vomiting, dysphagia, No diarrhea, abdominal pain, melena, BRBPR. GENITOURINARY: + Suprapubic discomfort. No dysuria, uanable to determine frequency, urgency well given uses depends chronically. NEUROLOGICAL: + Parkinson's disease with chronic tremors/pill rolling and dementia without behavioral disturbance, near syncopal event with suspected hypoperfusion as etiology secondary to sepsis, no headache, paralysis, ataxia, numbness or tingling in the extremities, focal weakness, change in bowel or bladder control, seizure. MUSCULOSKELETAL: + muscle, back pain, joint pain or stiffness. HEMATOLOGIC: + anemia, bleeding or bruising. LYMPHATICS: No enlarged nodes. No history of splenectomy. PSYCHIATRIC: + history of depression or anxiety. ENDOCRINOLOGIC: No reports of sweating, cold or heat intolerance. No polyuria or polydipsia. ALLERGIES: + history of hives. Vital Signs Vital Signs Vital Signs: 04/13/22 14:23 04/13/22 14:40 04/13/22 14:41 Temperature 97.2 F L Temperature Source Temporal Pulse Rate 85 71 Respiratory Rate 18 18 Respiratory Effort Normal Respiratory Pattern Normal Blood Pressure 145/111 H 109/85 H Blood Pressure Mean 122 93 Pulse Ox 96 68 Oxygen Delivery Method Room Air 04/13/22 15:12 04/13/22 15:25 04/13/22 15:30 Temperature 97.4 F L Temperature Source Oral Pulse Rate 72 66 65 Respiratory Rate 16 16 16 Respiratory Effort Respiratory Pattern Blood Pressure 87/44 L 88/48 L 88/44 L Blood Pressure Mean 58 61 58 Pulse Ox 98 98 98 Oxygen Delivery Method Room Air Room Air Room Air 04/13/22 15:40 04/13/22 15:52 04/13/22 16:20 Temperature Temperature Source Pulse Rate 68 67 Respiratory Rate 18 16 Respiratory Effort Respiratory Pattern Blood Pressure 70/58 L 105/70 102/50 L Blood Pressure Mean 62 81 67 Pulse Ox 98 99 Oxygen Delivery Method Room Air Room Air 04/13/22 17:06 Temperature 97.0 F L Temperature Source Temporal Pulse Rate 70 Respiratory Rate 16 Respiratory Effort Respiratory Pattern Blood Pressure 100/73 Blood Pressure Mean 82 Pulse Ox 98 Oxygen Delivery Method Room Air Weight Weight: 157 lb 3.033 oz Body Mass Index (BMI) 26.9 Physical Exam Narrative Physical Examination: General: Awake, alert, oriented to self, place and some recent events, does have underlying Parkinson's disease with dementia, remains cooperative and following exam request, laying in the ED bed, fatigued and ill-appearing, chills evident. Skin: Normal color, normal turgor, no icterus, no cyanosis except for very staged ecchymoses, right neck mass with recent biopsy. HEENT: AT/NC, EOMI, PERRLA, dry MM, no carotid bruits or JVD noted, significant right neck mass/enlarged lymph node. Lungs: Diminished, greater bases, decreased effort, no rales, ronchi or wheezing. Heart: Currently regular rate and rhythm; no gallop, rub audible. Abdomen: Soft, currently not eliciting any pain with palpation, no severe distention, mildly hyperactive diffuse bowel sounds, ND, normal BS, no HSM. Extremities: No cyanosis, no clubbing, chronic bilateral lower extremity edema. Neurological: Patient awake, alert, oriented as noted, cognitive function currently similar to baseline per discussion with family with underlying Parkinson's disease and dementia associated; pupils equally reactive to light and accommodation, cranial nerves grossly normal, moving all 4 extremities, strength severely global decrease secondary to acute presentation underlying comorbidities. Psychiatric: Affect appears flat, fatigued, ill-appearing, no acute evidence of depressive or anxiety feelings but does have underlying history. Results Lab / Micro Data Result Diagrams: 04/13/22 14:55 04/13/22 14:55 Labs: Laboratory Results - last 24 hr 04/13/22 14:55: WBC 16.2 H, RBC 4.17 L, Hgb 12.0, Hct 36.3 L, MCV 87.1, MCH 28.8, MCHC 33.1, RDW Std Deviation 47.7 H, RDW Coeff of [place] 14.9 H, Plt Count 417, MPV 9.3 04/13/22 14:55: Sodium 125 L, Potassium 4.0, Chloride 89 L, Carbon Dioxide 23.0, Anion Gap 13, BUN 49 H, Creatinine 2.53 H, Estim Creat Clear Calc 16.08, Est GFR (MDRD) Af Amer 24 L, Est GFR (MDRD) Non-Af 20 L, BUN/Creatinine Ratio 19.4, Glucose 236 H, Calcium 9.1, Total Bilirubin 0.90, AST 14 L, ALT < 6 L, Alkaline Phosphatase 77, Total Protein 7.1, Albumin 2.5 L, Globulin 4.6 H, Albumin/Globulin Ratio 0.5 L 04/13/22 14:55: Lactic Acid 2.6 H* 04/13/22 15:26: Urine Color Yellow, Urine Clarity Cloudy, Urine pH 7.0, Ur Specific [place] 1.010, Urine Protein 100 H, Urine Glucose (UA) Normal, Urine Ketones 15 H, Urine Occult Blood 150 H, Urine Nitrite Positive H, Urine Bilirubin Negative, Urine Urobilinogen Normal, Ur Leukocyte Esterase 500 H, Urine RBC 0 SEEN, Urine WBC >100 SEEN, Ur Squamous Epith Cells 0 SEEN, Urine Bacteria 2+, Urine Mucus 0 SEEN Radiology Impression Brain CT 04/13/22 14:47 IMPRESSION: No acute intracranial findings. Thickening of the nasopharyngeal wall and right nasopharyngeal and parapharyngeal soft tissues bilaterally suspicious for malignancy. Please refer to PET/CT performed 04/12/2022. Microvascular ischemic changes. Atrophy. Soft tissue density in the right middle ear and mastoid sinus suspicious for cholesteatoma. Mild chronic sinusitis. Electronically Signed: Angela Arreguin MD at 16:26 EST Reading Location ID and State: Jammie Pagan MD Tel , Service support , Chest X-Ray 04/13/22 16:05 IMPRESSION: No acute cardiopulmonary disease. Electronically Signed: Angela Arreguin MD at 16:27 EST Reading Location ID and State: Jammie Pagan MD Tel , Service support , Assessment & Plan Assessment/Plan (1) Sepsis: PLAN: Plan The patient is a 76 y/o F w/ PMHx: Parkinson's disease w/ associated dementia without behavioral disturbance history, Chronic BL LE Lymphedema, PVD, HTN, HLD, Diabetes mellitus type II with neuropathy, Hx Colon CA s/p resection/colostomy s/p reversal, recent 03/20/22 cervical notably sized lymph node with Bx obtained R neck with FNA with atypical ethmoidal cells with cytology with smear demonstrating scattered atypical crushed epithelial cells suspicious for malignant neoplasm with planned outpatient continued follow-up for cancer with recent PET scan obtained 04/12/2022 and awaiting final read however ED did discuss case with radiology and they reported preliminarily appearance of significant metastatic diffuse disease who presents to the [facility] ED on 04/13/22 secondary to notable suspected hypoperfusion event at facility likely secondary to sepsis with onset diaphoresis, significant encephalopathy, transient hypothermia with BP 70/45 reportedly also blue in appearance prompting EMS call and transition to the hospital for evaluation. #1. Acute Sepsis with hypothermia, lactic acidosis, hypotension, STEPHANIA improved with IVFs secondary to Acute Complicated Urinary Tract Infection: Will admit to MS given length discussion with patient/family with pending Hospice evaluation, UA upon ED evaluation remarkable, pending UCx, continue IVFs, monitor I/Os, continue IV Rocephin w/ transition as able pending sensitivities and speciation. Bld cx x 2 obtained in the ED. PT/OT/CM consultations for discharge planning. #2. High Suspicion Diffuse (lung, chest, abdomen, nasopharyngeal) Metastatic Cancer, Unclear specific type with associated dysphagia, intermittent nausea/emesis, weight loss, severe protein calorie malnutrition: We will continue to judicious hydration, as needed antiemetic agents, n.p.o. status except sips of water with medicines if able to tolerate until speech therapy evaluation, will consult nutrition for malnutrition for recommendations, awaiting for final PET scan read, magnesium and phosphorus levels will be requested also. Hospice care is pending. Did discuss current presentation and if patient was unsafe for oral intake family and patient would not like PEG tube. If patient does have extensive cancer they would likely transition to hospice. #3. Acute kidney injury likely secondary to poor intake and GI losses secondary to #2 and also recently #1: Admission BUN/Cr , prior baseline creatinine noted to be 07-0.9. Will continue to hydrate, hold nephrotoxic medications and repeat chemistry in AM. Per discussion with daughter, awaiting Hospice evaluation, will defer renal US or FeNa at this time. #4. Hyponatremia, acute, hypovolemic: Admission sodium 125, chloride 89, likely secondary to recent GI losses and poor intake, continued hydration as noted, repeat CMP in AM. #5. Parkinson's disease w/ associated dementia without behavioral disturbance history: Complicates presentation, if able to will patient home Sinemet regimen as well as pramipexole, maintain on fall and aspiration precautions, therapies consulted as noted. We will continue patient's home donepezil if able to tolerate. #6. Hypertension: Upon presentation patient was significantly low transient blood pressures, improved with fluids, will hold hypertensive regimen, add back once appropriate and monitor renal function given STEPHANIA for nephrotoxic medications. #7. Hyperlipidemia: Not on regimen, defer to outpatient. #8. Hx Colon CA: Patient s/p resection/colostomy s/p reversal, previously had been in remission awaiting further evaluation given concern for metastatic disease as noted above. #9. Diabetes mellitus type II: Hold oral home regimen, n.p.o. status given presentation, maintain on every 6 hours accu checks w/ ISS. #10. Severe protein calorie malnutrition: Patient with significant decreased oral intake, intractable GI symptoms with nausea and emesis, weight loss, will consult nutrition for recommendations. #11. DVT prophylaxis: SCDs, heparin cautiously. #12. CODE status: Patient CHUCK is her daughter who is present and living will is currently in place. Discussed CODE status at length including difference between FULL code, DNR-CCA and DNR-CC status. Following discussions about the differences in these status, requested DNR-CCA, no intubation status with amenability for treatment of her UTI; however, family and patient note if advanced CA which it appears to be but awaiting final reads would likely transition to comfort care. Also note with recent dysphagia and reports of oral intake unable to be tolerated would also not like PEG. Hospice has been consulted. Advanced Care Planning Face to Face Time: 25 minutes. Admission Evaluation Time spent evaluating chart, patient history, patient evaluation, care planning and discussion with specialists: 80 minutes. Charges/Coding Visit Charges Inpatient E&M: 62872 Init Hosp L3 Procedures Hospitalists Procedures: 22130 Advncd Care Plan 30 Min
[2022-04-13] MEDS: Insulin Lispro 100 UNIT/ML INSULN.PEN SC (20:20)
[2022-04-13 20:30] LABS: Bedside Glucose 210 mg/dL (74-106)
[2022-04-13 20:42] LABS: Lactic Acid 1.5 mmol/L (0.4-1.9)
[2022-04-13] MEDS: Pramipexole Di-HCl 0.5 MG Tablet PO (23:30)
[2022-04-13] MEDS: Donepezil HCl 5 MG Tablet PO (23:30)
[2022-04-13] MEDS: Heparin Injection (Vial) 5,000 UNIT/ML VIAL 5000 UNIT SC (23:30)
[2022-04-13] MEDS: Carbidopa/Levodopa 25/100 Tablet PO (23:30)
[2022-04-14 01:20] LABS: Bedside Glucose 180 mg/dL (74-106)
[2022-04-14 01:30] VITALS: BP 91/62; PULSE 63; RESP 16; TEMP 36.4; O2SAT 95
[2022-04-14] MEDS: 0.9% Normal Saline 1,000 ML 100 ML IV ×2 (03:14→16:16)
[2022-04-14] MEDS: Carbidopa/Levodopa 25/100 Tablet PO ×4 (07:16→21:19)
[2022-04-14] MEDS: Pramipexole Di-HCl 0.5 MG Tablet PO ×3 (07:16→21:19)
[2022-04-14 07:23] LABS: Absolute Lymphocyte Count 0.69 X10^3/uL (0.83-4.51); Absolute Neutrophil Count 9.9 X10^3/uL (2.0-7.7); Basophil# 0.01 X10^3/uL; Basophil% 0.1 % (0-1); Hematocrit 32.7 % (37-47); Hemoglobin 10.3 g/dL (12.0-15.0); Lymphocyte # 0.69 X10^3/ul (0.83-4.51); Lymphocyte % 6.1 % (19-41); Mean Corp Hgb Conc 31.5 g/dL (32-36); Mean Corpuscular Hgb 28.1 pg (27.0-32.0); Mean Corpuscular Volume 89.3 fL (81-99); Mean Platelet Vol. 9.6 fl (6.2-12.0); Monocyte% 6.2 % (0-10); NRBC Flagged by Analyzer 0 % (0-5); Neutrophil % 86.9 % (47-70); Platelet Count 326 K/mm3 (150-450); RBC Distribution Width CV 14.9 % (11.6-14.6); RBC Distribution Width SD 49.2 fl (35.1-43.9); Red Blood Count 3.66 M/mm3 (4.2-5.4); White Blood Count 11.4 K/mm3 (4.4-11.0)
[2022-04-14 07:40] LABS: Bedside Glucose 147 mg/dL (74-106)
[2022-04-14 07:56] LABS: ALB/GLOB Ratio 0.5 RATIO (0.9-2.4); AST(SGOT) 8 U/L (15-37); Alanine Aminotransfer ALT/SGPT < 6 U/L (13-56); Albumin, Serum 1.9 g/dL (3.2-5.0); Alkaline Phosphatase 61 U/L (45-117); Anion Gap 14 (5-15); BUN 46 mg/dL (7-18); BUN/Creat Ratio 22.5 RATIO (10-20); Calcium,Total 7.7 mg/dL (8.5-10.1); Chloride 99 mmol/L (98-107); Creatinine, Serum 2.04 mg/dL (0.55-1.02); EST Glomerular Filtration Rate 25 mL/min (>60); Est Glom Filt Rate - Afr Amer 30 mL/min (>60); Estimated Creatinine Clearance 16.59 ml/min; Glucose 149 mg/dL (74-106); Potassium 4.6 mmol/L (3.5-5.1); Protein, Total 5.9 g/dL (6.4-8.2); Sodium Level 131 mmol/L (136-145)
[2022-04-14 08:26] VITALS: O2SAT 95
[2022-04-14] MEDS: Aspirin 81 MG TAB.CHEW PO (08:26)
[2022-04-14 08:45] VITALS: BP 108/39; PULSE 78; RESP 18; TEMP 36.5; O2SAT 100
--- NOTE | 2022-04-14 08:56 | PN.HOSP_ITS ---
Subjective Subjective Follow-up sepsis secondary to UTI Patient is a 76-year-old lady resident at an extended care facility brought in a fter she was found with decreased level of sensorium. An assessment of sepsis secondary to acute complicated UTI made admitted to regular nursing floor for further management Objective Data Objective Data Vital Signs: Vital Signs Temp Pulse Resp BP Pulse Ox O2 Del Method 97.5 F L 63 16 91/62 95 Room Air 04/14/22 01:30 04/14/22 01:30 04/14/22 01:30 04/14/22 01:30 04/14/22 08:26 04/14/22 08:26 Oxygen Delivery Method Room Air Weight: 68.5 kg Body Mass Index (BMI) 29.2 Intake & Output: Intake and Output for Last 24 Hours 04/12/22 04/13/22 04/14/22 23:59 23:59 23:59 Intake Total 2160 / 2160 Output Total 0 / 0 Balance 2160 / 2160 0 / 0 Lab / Micro Data Result Diagrams: 04/14/22 06:56 04/14/22 06:56 Labs: Laboratory Results - last 24 hr 04/13/22 14:55: WBC 16.2 H, RBC 4.17 L, Hgb 12.0, Hct 36.3 L, MCV 87.1, MCH 28. 8, MCHC 33.1, RDW Std Deviation 47.7 H, RDW Coeff of Damon 14.9 H, Plt Count 417, MPV 9.3 04/13/22 14:55: Sodium 125 L, Potassium 4.0, Chloride 89 L, Carbon Dioxide 23.0, Anion Gap 13, BUN 49 H, Creatinine 2.53 H, Estim Creat Clear Calc 16.08, Est GFR (MDRD) Af Amer 24 L, Est GFR (MDRD) Non-Af 20 L, BUN/Creatinine Ratio 19.4, Glucose 236 H, Calcium 9.1, Total Bilirubin 0.90, AST 14 L, ALT < 6 L, Alkaline Phosphatase 77, Total Protein 7.1, Albumin 2.5 L, Globulin 4.6 H, Albumin/Globulin Ratio 0.5 L 04/13/22 14:55: Lactic Acid 2.6 H* 04/13/22 14:55: Phosphorus 4.4, Magnesium 1.7 04/13/22 15:26: Urine Color Yellow, Urine Clarity Cloudy, Urine pH 7.0, Ur Specific [place] 1.010, Urine Protein 100 H, Urine Glucose (UA) Normal, Urine Ketones 15 H, Urine Occult Blood 150 H, Urine Nitrite Positive H, Urine Bilirubin Negative, Urine Urobilinogen Normal, Ur Leukocyte Esterase 500 H, Urine RBC 0 SEEN, Urine WBC >100 SEEN, Ur Squamous Epith Cells 0 SEEN, Urine Bacteria 2+, Urine Mucus 0 SEEN 04/13/22 19:44: Lactic Acid 1.5 04/13/22 20:12: POC Glucose 210 H 04/14/22 00:31: POC Glucose 180 H 04/14/22 06:56: WBC 11.4 H, RBC 3.66 L, Hgb 10.3 L, Hct 32.7 L, MCV 89.3, MCH 28.1, MCHC 31.5 L, RDW Std Deviation 49.2 H, RDW Coeff of Damon 14.9 H, Plt Count 326, MPV 9.6, Immature Gran % (Auto) 0.700, Neut % (Auto) 86.9 H, Lymph % (Auto) 6.1 L, [place] % (Auto) 6.2, Eos % (Auto) 0.0, Baso % (Auto) 0.1, Absolute Neuts (auto) 9.9 H, Absolute Lymphs (auto) 0.69 L, Nucleated RBC % 0 04/14/22 06:56: Sodium 131 L, Potassium 4.6, Chloride 99, Carbon Dioxide 18.0 L, Anion Gap 14, BUN 46 H, Creatinine 2.04 H, Estim Creat Clear Calc 16.59, Est GFR (MDRD) Af Amer 30 L, Est GFR (MDRD) Non-Af 25 L, BUN/Creatinine Ratio 22.5 H, Glucose 149 H, Calcium 7.7 L, Total Bilirubin 0.40, AST 8 L, ALT < 6 L, Alkaline Phosphatase 61, Total Protein 5.9 L, Albumin 1.9 L, Globulin 4.0, Albumin/Globulin Ratio 0.5 L 04/14/22 07:15: POC Glucose 147 H Radiography Diagnostic Testing: Radiology Impression Brain CT 04/13/22 14:47 IMPRESSION: No acute intracranial findings. Thickening of the nasopharyngeal wall and right nasopharyngeal and parapharyngeal soft tissues bilaterally suspicious for malignancy. Please refer to PET/CT performed 04/12/2022. Microvascular ischemic changes. Atrophy. Soft tissue density in the right middle ear and mastoid sinus suspicious for cholesteatoma. Mild chronic sinusitis. Electronically Signed: Angela Arreguin MD at 16:26 EST Reading Location ID and State: [place] Tel , Service support , Chest X-Ray 04/13/22 16:05 IMPRESSION: No acute cardiopulmonary disease. Electronically Signed: Angela Arreguin MD at 16:27 EST Reading Location ID and State: Jammie Pagan MD Tel , Service support , Physical Exam Narrative GENERAL: cooperative HEENT: Atraumatic; normocephalic EYES; Anicteric, Normal Conjunctiva NECK; supple, normal thyroid, RESPIRATORY: Diminished to auscultation CARDIOVASCULAR: Regular S1 S2, GI: soft, normoactive bowel sounds, : No Renal angle tenderness; EXTREMITIES: No edema, no clubbing, MUSCULOSKELETAL: no muscle wasting NEURO: Awake; no lateralizing signs, But significant tremors at rest SKIN: No Rash PSYCH; Flat affect Assessment & Plan Assessment/Plan (1) Sepsis: PLAN: Plan Patient is a 76-year-old lady resident at an extended care facility brought in after she was found with decreased level of sensorium. An assessment of sepsis secondary to acute complicated UTI made admitted to regular nursing floor for further management 1. Sepsis secondary to UTI ? Patient started on Rocephin cultures sent we will follow-up on urine cultures and adjust antibiotics as needed 2. Acute kidney injury ? Suspected to be secondary to acute tubular necrosis from sepsis. Patient baseline creatinine on record is 1.12 creatinine on admission was 2.53. Patient has been started on IV fluid daily monitoring with BMPs ordered 3. Hyponatremia ? Secondary to hypovolemic hyponatremia patient being managed with IV fluid with serial monitoring with BMPs ordered daily 4. Suspected head and neck malignancy ? CT performed on 04/13/2022 demonstrated Thickening of the nasopharyngeal wall and right nasopharyngeal and parapharyngeal soft tissues bilaterally suspicious for malignancy. Patient had apparently undergone PET scan a day prior to his admission which demonstrated metastatic disease. Family requested for palliative care/hospice consultation 5. Parkinson's disease ? Symptoms controlled on Sinemet did continue with home dose 6. Diabetes mellitus type 2 ? Apparently managed with diet was placed on Accu-Cheks before meals and at bedtime with sliding scale coverage. Patient has diabetic complications including diabetic polyneuropathy 7. History of colon cancer -status postresection with subsequent colostomy and reversal 8. Anemia - Secondary to chronic disorder monitoring H&H and transfuse if patient becomes symptomatic or hemoglobin falls below 7 9. Essential hypertension ? Patient antihypertensives held monitoring with every shift vitals ordered 10. DVT prophylaxis -SC heparin Time spent in the patient's overall evaluation,decision-making process, review of diagnostic data, adjustment of management, discussion with other providers, nursing nursing and ancillary staff involved in patient's care documentation, 55 Minutes Charges/Coding Visit Charges Inpatient E&M: 35329 [facility] Hosp L3
--- NOTE | 2022-04-14 09:44 | CASEMGMT ---
Social Work Consult: From [facility]/new cancer diagnosis. Referral source: Self referral This social work supervisor attempted to meet with patient in room. Patient currently sleeping, no family present. Will continue to follow. BHUMI Jimenes
[2022-04-14] MEDS: PARoxetine 10 MG Tablet PO (10:04)
[2022-04-14] MEDS: Ceftriaxone 1 GM/50 ML BAG IV (10:43)
[2022-04-14] MEDS: Heparin Injection (Vial) 5,000 UNIT/ML VIAL 5000 UNIT SC ×2 (10:50→21:19)
--- NOTE | 2022-04-14 11:44 | CASEMGMT ---
Social Work This social and political studies professor able to meet with patient and patient daughter, Lizz Campos in room. This social and political studies professor introduced self and social and political studies professor role. Patient agreeable to speak with this social and political studies professor and provided verbal permission for this social and political studies professor to speak openly with Lizz present. This social and political studies professor confirmed that patient and Lizz are requesting for palliative care consult to be placed to [facility]. This social and political studies professor broached topic of [facility], patient would like to return to [facility] and is a long-term resident at the facility. Lizz clarifying with this social and political studies professor that family and patient are waiting on final outcome/reading of PET scan and if cancer is everywhere the wish is to start hospice services and return to [facility], this social and political studies professor voiced understanding and provided support. Lizz reports to be patient health care power of civil litigation attorney, this social and political studies professor noting that documents are on file. Main question that family/patient has is PET scan results. Active support and listening provided. This social and political studies professor notified Dr. Villela of patient and family request for further information about PET scan. automation and controls manager to make referral to [facility] for palliative care. PLAN: Return to [facility] when medically cleared. Social Work to continue to follow as needed. Genesis Latif MSW, BHUMI
--- NOTE | 2022-04-14 13:35 | CASEMGMT ---
GEORGE ANTOINE updated from that pt and family interested in palliative care. Pt screened using [facility] palliative care screening tool, pt met criteria. Referral emailed to palliative at this time.
--- NOTE | 2022-04-14 13:39 | CASEMGMT ---
Social Work This social work case manager contacted [facility], they are able to accept patient back when medically cleared. Genesis Latif SENIOR C SOFTWARE ENGINEER, RASHAADS
[2022-04-14 13:50] LABS: Bedside Glucose 160 mg/dL (74-106)
[2022-04-14] MEDS: 0.9% Saline Lock 10 ML Syringe IV (14:29)
[2022-04-14 14:45] VITALS: BP 111/44; PULSE 89; RESP 18; TEMP 36.8; O2SAT 100
--- NOTE | 2022-04-14 15:11 | SP.MBSS_ITS ---
Modified Barium Swallow - Patient Information Study Date: 04/14/22 Study Time: 13:50 Direct Billable Minutes: 107 Total Minutes procedure & reportin Diagnosis: Metastatic cancer (C79.9) Referring Physician: Jasmeet Villela Reason for Referral: Objectively assess swallow function, assess risk for aspiration, and determine recommendations for least restrictive diet textures and compensatory strategies to improve safety of swallow. Medical History: The patient is a 76-year-old with PMH including Parkinson's disease w/ associated dementia without behavioral disturbance history, Chronic BL LE Lymphedema, PVD, HTN, HLD, Diabetes mellitus type II with neuropathy, Hx Colon CA s/p resection/colostomy s/p reversal, recent 03/20/22 cervical notably sized lymph node with Bx obtained R neck with FNA with atypical ethmoidal cells with cytology with smear demonstrating scattered atypical crushed epithelial cells suspicious for malignant neoplasm. Pt has planned outpatient follow-up for cancer with recent PET scan obtained 04/12/2022 - awaiting final read. She presented to [facility] ED on 04/13/22 secondary to significant encephalopathy, hypotensive episode w/ suspected hypoperfusion, amongst other symptoms. Patient's family reports that over the last several weeks whenever the patient tries to eat or drink sometimes will just come up her nose therefore she has not really tolerated intake at all well but of note has been adamantly opposed to any PEG tube placement concept. Chest x-ray with no acute cardiopulmonary findings, CT brain with no acute intracranial findings with thickening of the nasopharyngeal wall and right nasopharyngeal and parapharyngeal soft tissues bilaterally suspicious for malignancy, microvascular ischemic changes and atrophy, soft tissue density in the right middle ear and mastoid sinus suspicious for possible cholesteatoma, mild chronic sinusitis. Pt admitted for management sepsis secondary to UTI. Patient recommended NPO following BSE with INSTRUCTIONAL RESOURCE TEACHERNancy, and recommended for MBSS prior to diet advancement. Prior to MBSS, this INSTRUCTIONAL RESOURCE TEACHER inspected oral cavity and viewed irregular, bulging, white and red palate - most notable on the R side of the oral cavity. Additionally, pt appears to have large growth on R side of neck. Following this MBSS, this INSTRUCTIONAL RESOURCE TEACHER became aware of previous MBSS completed 04/04/2022 from criminal justice social workerParvin. Per RN at [facility], the MBSS recommended NPO, but the patient signed a waiver against NPO recommendation and accepting risk of Regular diet textures / Thin liquids. Current Diet Ordered: NPO Dentition: Upper Dentures, Lower Dentures Mental Status: Impaired - acute encephalopathy Respiratory Status: Oxygenating on Room Air - Penetration-Aspiration Scale Penetration-Aspiration Scale: OBJECTIVE ASSESSMENT OF SWALLOW FUNCTION (QUANTITATIVE ? PER TRIAL): PENETRATION / ASPIRATION SCALE (BREAUX): 1 = does not enter airway 2 = enters airway/above vocal folds/ejected 3 = enters airway/above vocal folds/not ejected 4 = enters airway/contacts vocal folds/ejected 5 = enters airway/contacts vocal folds/not ejected 6 = enters airway/below vocal folds/ejected 7 = enters airway/below vocal folds/not ejected despite effort 8 = enters airway/below vocal folds/no effort VIDEOFLOROSCOPIC SCALE SCORE (BREAUX): Grade I = aspiration of material that has penetrated into the laryngeal vestibule, intact cough reflex Grade II = aspiration < 10 % of the bolus, intact cough reflex Grade III = aspiration of < 10 % of the bolus, reduced cough reflex or aspiration of > 10 % of the bolus, intact cough reflex Grade IV = aspiration of > 10 % of the bolus, reduced cough reflex - Oral Phase Labial Seal: No Labial Escape Tongue Control During Bolus Hold: Posterior escape of greater than half of bolus Bolus Transport/Lingual Motion: Minimal to no tongue motion - minimal Oral Residue: Minimal to no clearance - pudding - Pharyngeal Phase Initiation of Pharyngeal Swallow: Bolus head in pyriforms Soft Palate Elevation: Escape to nasal cavity Laryngeal Elevation: Partial superior movement thyroid cart/partial apprx aryt- epig petiole Anterior Hyoid Excursion: Partial anterior movement Epiglottic Movement: No inversion Laryngeal Vestibule Closure at Height of Swallow: Incomplete; narrow column of air/contrast in laryngeal vestibule Pharyngeal Stripping Wave: Absent Pharyngoesophageal Segment Opening: Minimal distension and minimal duration; marked obstruction of flow Tongue Base Retraction: Wide column of contrast between tongue base & post. pharyngeal wall Pharyngeal Residue: Majority of contrast within or on pharyngeal structures - Diagnosis/Impression Diagnosis: Severe oropharyngeal phase dysphagia (R13.12) Impression: The oral phase is primarily marked by... -Decreased bolus control with >1/2 of the bolus spilling posteriorly to the pyriforms prior to swallow onset observed with thin liquids especially. -Minimal tongue motion for A-P transport, most notable with pudding trial. INSTRUCTIONAL RESOURCE TEACHER manually cleared pudding trial from oral cavity with toothette swab. -Did not complete cookie trial due to concerns for choking with decreased lingual movement/control and poor pharyngeal clearance. The pharyngeal phase is primarily marked by... -Severely decreased airway closure during the swallow due to partial anterior hyoid excursion, no epiglottic inversion, and decreased laryngeal elevation. -Severely decreased tongue base retraction, severely decreased UES opening/duration, and no pharyngeal stripping wave with resulting severe pharyn geal residues after the swallow. -Post prandial SILENT aspiration of thin liquids by tsp. SILENT aspiration of thin by tsp while sitting upright and in slightly reclined position during the swallow. Deep laryngeal penetration of nectar/mildly thick liquids to the vocal folds, which did not reliably eject placing patient at increased risk for aspiration. - Recommendations Diet: NPO - Strict NPO Recommend Repeat Modified Barium Swallow: TBD Need for Skilled Speech Therapy Services: Yes Comment: Will recommend the patient for continued dysphagia therapy to address severe deficits in oropharyngeal swallow function. Will recommend the patient for oropharyngeal strengthening to improve lingual ROM/strength/coordination, tongue base retraction, hyolaryngeal elevation/excursion, pharyngeal contraction, and duration of UES opening. Trials of thin water by tsp with INSTRUCTIONAL RESOURCE TEACHER ONLY. - Status Active ST Patient: Active - Contact Information [facility] Speech Therapy:: Mere Donald M.A. [facility]-INSTRUCTIONAL RESOURCE TEACHER Speech-Language Pathologist [facility] [address] [place] [address] [email or web address] [phone] 04/14/22 15:43
--- NOTE | 2022-04-14 16:36 | CHAPLAIN ---
Type of Pastoral Visit ___ Initial Visit ___ Follow-up Visit ___ On-call Visit ___ General Patient Visit ___ Spiritual Assessment ___ Family Conference ___ Bereavement ___ Rapid Response ___ Code Blue ___ Other (describe below) Pastoral Care Referral From _x__ Patient ___ Family ___ Nurse ___ Physician _x__ Machine Setter Automatic ___ Salesperson [employer] ___ Other (describe below) Sacrament/Intervention ___ Active listening ___ Anointing ___ Latter Day ___ Bereavement ___ Communion ___ Nikki exploration ___ ___ Life review ___ Prayer ___ Reconciliation ___ Sacrament of Sick ___ Supportive presence ___ Wedding ___ Other (describe below) Pastoral Comments patient is out of the room;
[2022-04-14] MEDS: KCL 20MEQ in D5.45NS 20 MEQ/1,000 ML IV.SOLN. 100 MEQ IV (17:16)
[2022-04-14 19:51] LABS: Bedside Glucose 154 mg/dL (74-106)
[2022-04-14 20:40] VITALS: BP 140/93; PULSE 82; RESP 16; TEMP 36.9; O2SAT 100
[2022-04-14 20:47] VITALS: PULSE 54; RESP 16; O2SAT 99
[2022-04-14] MEDS: Donepezil HCl 5 MG Tablet PO (21:19)
[2022-04-14 23:06] LABS: Bedside Glucose 198 mg/dL (74-106)
[2022-04-14] MEDS: Insulin Lispro 100 UNIT/ML INSULN.PEN SC (23:41)
[2022-04-15] VITALS (9 sets, daily range): BP systolic 120–161; BP diastolic 7–93; PULSE 98–113; RESP 16–18; TEMP 36.2–38; O2SAT 96–98
[2022-04-15] MEDS: KCL 20MEQ in D5.45NS 20 MEQ/1,000 ML IV.SOLN. 100 MEQ IV ×2 (04:11→14:34)
[2022-04-15] MEDS: Insulin Lispro 100 UNIT/ML INSULN.PEN SC ×3 (06:08→17:30)
[2022-04-15 06:45] LABS: Bedside Glucose 174 mg/dL (74-106)
[2022-04-15 07:18] LABS: Absolute Neutrophil Count 7.9 X10^3/uL (2.0-7.7); Basophil# 0.01 X10^3/uL; Basophil% 0.1 % (0-1); Hematocrit 26.9 % (37-47); Hemoglobin 8.8 g/dL (12.0-15.0); Lymphocyte % 5.5 % (19-41); Mean Corp Hgb Conc 32.7 g/dL (32-36); Mean Corpuscular Hgb 28.3 pg (27.0-32.0); Mean Corpuscular Volume 86.5 fL (81-99); Monocyte# 0.59 X10^3/uL; Monocyte% 6.5 % (0-10); NRBC Flagged by Analyzer 0 % (0-5); Neutrophil # 7.92 X10^3/uL (2.7-7.7); Neutrophil % 87.3 % (47-70); POSITIVE DIFFERENTIAL YES; Platelet Count 305 K/mm3 (150-450); RBC Distribution Width CV 15.2 % (11.6-14.6); RBC Distribution Width SD 48.7 fl (35.1-43.9); Red Blood Count 3.11 M/mm3 (4.2-5.4); White Blood Count 9.1 K/mm3 (4.4-11.0)
[2022-04-15 07:22] LABS: Differential Indicated SCAN CRITERIA MET
[2022-04-15 07:47] LABS: Platelet Estimate ADEQUATE (ADEQ); Red Cell Morphology NORM C+C NORMAL (NORM C&C)
[2022-04-15 08:52] LABS: Anion Gap 9 (5-15); BUN 35 mg/dL (7-18); Chloride 103 mmol/L (98-107); Creatinine, Serum 1.52 mg/dL (0.55-1.02); EST Glomerular Filtration Rate 35 mL/min (>60); Est Glom Filt Rate - Afr Amer 43 mL/min (>60); Estimated Creatinine Clearance 22.26 ml/min; Glucose 180 mg/dL (74-106); Magnesium 1.2 mg/dL (1.6-2.6); Phosphorus 1.9 mg/dL (2.5-4.9); Potassium 3.5 mmol/L (3.5-5.1); Sodium Level 134 mmol/L (136-145)
[2022-04-15] MEDS: Heparin Injection (Vial) 5,000 UNIT/ML VIAL 5000 UNIT SC ×2 (09:15→21:47)
--- NOTE | 2022-04-15 09:19 | PN.HOSP_ITS ---
Subjective Subjective Follow-up aspiration pneumonia ? Patient was kept n.p.o. following assessment by speech therapy. Patient's family is considering going the hospice route. Awaiting official results of patient PET scan prior to decision being made Objective Data Objective Data Vital Signs: Vital Signs Temp Pulse Resp BP Pulse Ox O2 Del Method 98.9 F 100 18 139/75 H 97 Room Air 04/15/22 09:04 04/15/22 09:08 04/15/22 09:04 04/15/22 09:04 04/15/22 09:04 04/15/22 09:08 Oxygen Delivery Method Room Air Weight: 70.4 kg Body Mass Index (BMI) 29.2 Intake & Output: Intake and Output for Last 24 Hours 04/13/22 04/14/22 04/15/22 23:59 23:59 23:59 Intake Total 2160 / 2160 1390.0 / 1410.0 1020 / 1020 Output Total 0 / 0 0 / 0 Balance 2160 / 2160 1390.0 / 1410.0 1020 / 1020 Medical Nutrition Assessment Dietitian: Malnutrition Criteria Met Start: 04/14/22 13:50 Freq: Status: Active Protocol: Document 04/14/22 13:50 SLA (Rec: 04/14/22 13:50 SLA [id number]) Nutrition Malnutrition Evidence of Malnutrition Exists Yes Malnutrition (severe): Acute Illness/Injury Evidenced By Suboptimal Energy Intake ( Severe),Weight Loss (Severe) Clinical Problem Acute Disease or Injury Related Malnutrition Etiology related to colon cancer w/ mets and inability to consume adequate nutrition to meet est nutritional needs Signs/Symptoms as evidenced by 29.2% wt loss and po intake meeting <75% of est nutritional needs x 6 wks Status Active Problem Recommendation Dietitian Recommendations/Changes As medically able, rec JOHN to liberal Regular diet - consistency per MASTER TECHNICIAN. As medically able, rec 120 ml ensure plus high protein w/ medpass 4x/day Lab / Micro Data Result Diagrams: 04/15/22 07:08 04/15/22 07:08 Labs: Laboratory Results - last 24 hr 04/14/22 12:37: POC Glucose 160 H 04/14/22 18:17: POC Glucose 154 H 04/14/22 22:43: POC Glucose 198 H 04/15/22 06:06: POC Glucose 174 H 04/15/22 07:08: WBC 9.1, RBC 3.11 L, Hgb 8.8 L, Hct 26.9 L, MCV 86.5, MCH 28.3, MCHC 32.7, RDW Std Deviation 48.7 H, RDW Coeff of Damon 15.2 H, Plt Count 305, MPV 9.0, Immature Gran % (Auto) 0.600, Neut % (Auto) 87.3 H, Lymph % (Auto) 5.5 L, [place] % (Auto) 6.5, Eos % (Auto) 0.0, Baso % (Auto) 0.1, Absolute Neuts (auto) 7.9 H, Absolute Lymphs (auto) 0.50 L, Nucleated RBC % 0, Platelet Estimate ADEQUATE, RBC Morphology NORM C+C 04/15/22 07:08: Sodium 134 L, Potassium 3.5, Chloride 103, Carbon Dioxide 22.0, Anion Gap 9, BUN 35 H, Creatinine 1.52 H, Estim Creat Clear Calc 22.26, Est GFR (MDRD) Af Amer 43 L, Est GFR (MDRD) Non-Af 35 L, BUN/Creatinine Ratio 23.0 H, Glucose 180 H, Calcium 8.0 L, Phosphorus 1.9 L, Magnesium 1.2 L Physical Exam Narrative GENERAL: cooperative HEENT: Atraumatic; normocephalic EYES; Anicteric, Normal Conjunctiva NECK; supple, normal thyroid, RESPIRATORY: Diminished to auscultation CARDIOVASCULAR: Regular S1 S2, GI: soft, normoactive bowel sounds, : No Renal angle tenderness; EXTREMITIES: No edema, no clubbing, MUSCULOSKELETAL: no muscle wasting NEURO: Awake; no lateralizing signs, But significant tremors at rest SKIN: No Rash PSYCH; Flat affect Assessment & Plan Assessment/Plan (1) Sepsis: PLAN: Plan Patient is a 76-year-old lady resident at an extended care facility brought in after she was found with decreased level of sensorium. An assessment of sepsis secondary to acute complicated UTI made admitted to regular nursing floor for further management 1. Sepsis secondary to UTI as well as suspected aspiration pneumonia ? Patient started on Rocephin cultures sent we will follow-up on urine cultures and adjust antibiotics as needed 2. Acute kidney injury ? Suspected to be secondary to acute tubular necrosis from sepsis. Patient baseline creatinine on record is 1.12 creatinine on admission was 2.53. Patient has been started on IV fluid daily monitoring with BMPs ordered ? 04/15/2022; slight improvement in kidney function 3. Hyponatremia ? Secondary to hypovolemic hyponatremia patient being managed with IV fluid with serial monitoring with BMPs ordered daily 4. Suspected head and neck malignancy ? CT performed on 04/13/2022 demonstrated Thickening of the nasopharyngeal wall and right nasopharyngeal and parapharyngeal soft tissues bilaterally suspicious for malignancy. Patient had apparently undergone PET scan a day prior to his admission which demonstrated metastatic disease. Family requested for palliative care/hospice consultation 5. Parkinson's disease ? Symptoms controlled on Sinemet did continue with home dose 6. Diabetes mellitus type 2 ? Apparently managed with diet was placed on Accu-Cheks before meals and at bedtime with sliding scale coverage. Patient has diabetic complications including diabetic polyneuropathy 7. History of colon cancer -status postresection with subsequent colostomy and reversal 8. Anemia - Secondary to chronic disorder monitoring H&H and transfuse if patient becomes symptomatic or hemoglobin falls below 7 9. Essential hypertension ? Patient antihypertensives held monitoring with every shift vitals ordered 10. DVT prophylaxis -SC heparin 11. Suspected aspiration ? Patient was kept n.p.o. following assessment by speech therapy. Further management decision regarding pleasure feed versus alternative methods of feeding to be determined by family decision was official PET scan result is available Time spent in the patient's overall evaluation,decision-making process, review of diagnostic data, adjustment of management, discussion with other providers, nursing nursing and ancillary staff involved in patient's care documentation, 36 Minutes Charges/Coding Visit Charges Inpatient E&M: 69416 Subs Hosp L2
[2022-04-15] MEDS: Ceftriaxone 1 GM/50 ML BAG IV (10:05)
[2022-04-15 12:15] LABS: Bedside Glucose 196 mg/dL (74-106)
[2022-04-15] MEDS: Acetaminophen 650 MG Suppository RC ×2 (16:27→20:49)
[2022-04-15 18:00] LABS: Bedside Glucose 197 mg/dL (74-106)
--- NOTE | 2022-04-15 19:28 | NURSING ---
Daughter Lizz called that Dr Villela will see her mom between 8 and 9. And if there are any significant changes the night nurse will call her.
[2022-04-16] MEDS: Insulin Lispro 100 UNIT/ML INSULN.PEN SC ×2 (00:03→06:15)
[2022-04-16] MEDS: KCL 20MEQ in D5.45NS 20 MEQ/1,000 ML IV.SOLN. 100 MEQ IV ×2 (00:03→10:29)
[2022-04-16 00:11] LABS: Pathologist Review May foll
[2022-04-16 00:55] LABS: Bedside Glucose 190 mg/dL (74-106)
[2022-04-16 02:14] VITALS: BP 158/74; PULSE 103; RESP 16; TEMP 36.4; O2SAT 98
[2022-04-16 06:51] LABS: Absolute Lymphocyte Count 0.86 X10^3/uL (0.83-4.51); Absolute Neutrophil Count 5.8 X10^3/uL (2.0-7.7); Hematocrit 31.7 % (37-47); Hemoglobin 10.5 g/dL (12.0-15.0); Lymphocyte # 0.86 X10^3/ul (0.83-4.51); Lymphocyte % 11.6 % (19-41); Mean Corp Hgb Conc 33.1 g/dL (32-36); Mean Corpuscular Hgb 28.4 pg (27.0-32.0); Mean Corpuscular Volume 85.7 fL (81-99); Mean Platelet Vol. 9.2 fl (6.2-12.0); Monocyte# 0.76 X10^3/uL; Monocyte% 10.2 % (0-10); NRBC Flagged by Analyzer 0 % (0-5); Neutrophil # 5.79 X10^3/uL (2.7-7.7); Neutrophil % 77.8 % (47-70); Platelet Count 355 K/mm3 (150-450); RBC Distribution Width CV 15.3 % (11.6-14.6); RBC Distribution Width SD 47.8 fl (35.1-43.9); White Blood Count 7.4 K/mm3 (4.4-11.0)
[2022-04-16 07:20] LABS: Bedside Glucose 205 mg/dL (74-106)
--- NOTE | 2022-04-16 07:30 | PCM.PN.HOSP ---
Subjective Subjective Follow-up sepsis secondary to UTI and aspiration pneumonia ? Had an extensive discussion with patient's family her daughter regarding patient's current condition and prognosis. Patient has confirmed head and neck CA with possible metastatic disease (awaiting official PET scan report). Given patient rapid progressive decline decision was made to change CODE STATUS to DNR CC. Consult was placed to the hospitalist service did initiate hospice/palliative care order set Objective Data Objective Data Vital Signs: Vital Signs Temp Pulse Resp BP Pulse Ox O2 Del Method 97.6 F L 103 H 16 158/74 H 98 Room Air 04/16/22 02:14 04/16/22 02:14 04/16/22 02:14 04/16/22 02:14 04/16/22 02:14 04/16/22 02:14 Oxygen Delivery Method Room Air Weight: 66.2 kg Body Mass Index (BMI) 29.2 Intake & Output: Intake and Output for Last 24 Hours 04/14/22 04/15/22 04/16/22 23:59 23:59 23:59 Intake Total 1390.0 / 1410.0 2290 / 2290 948.33 / 948.33 Output Total 0 / 0 525 / 1775 2049 / 2049 Balance 1390.0 / 1410.0 1765 / 515 -1101.67 / -1101.67 Medical Nutrition Assessment Dietitian: Malnutrition Criteria Met Start: 04/14/22 13:50 Freq: Status: Active Protocol: Document 04/14/22 13:50 SLA (Rec: 04/14/22 13:50 SLA [id number]) Nutrition Malnutrition Evidence of Malnutrition Exists Yes Malnutrition (severe): Acute Illness/Injury Evidenced By Suboptimal Energy Intake ( Severe),Weight Loss (Severe) Clinical Problem Acute Disease or Injury Related Malnutrition Etiology related to colon cancer w/ mets and inability to consume adequate nutrition to meet est nutritional needs Signs/Symptoms as evidenced by 29.2% wt loss and po intake meeting <75% of est nutritional needs x 6 wks Status Active Problem Recommendation Dietitian Recommendations/Changes As medically able, rec JOHN to liberal Regular diet - consistency per DOG HANDLER. As medically able, rec 120 ml ensure plus high protein w/ medpass 4x/day Lab / Micro Data Result Diagrams: 04/16/22 06:24 04/16/22 06:24 Labs: Laboratory Results - last 24 hr 04/15/22 07:08: Diff Path Review July foll, Platelet Estimate ADEQUATE, RBC Morphology NORM C+C 04/15/22 07:08: Sodium 134 L, Potassium 3.5, Chloride 103, Carbon Dioxide 22.0, Anion Gap 9, BUN 35 H, Creatinine 1.52 H, Estim Creat Clear Calc 22.26, Est GFR (MDRD) Af Amer 43 L, Est GFR (MDRD) Non-Af 35 L, BUN/Creatinine Ratio 23.0 H, Glucose 180 H, Calcium 8.0 L, Phosphorus 1.9 L, Magnesium 1.2 L 04/15/22 11:49: POC Glucose 196 H 04/15/22 17:27: POC Glucose 197 H 04/16/22 00:01: POC Glucose 190 H 04/16/22 06:13: POC Glucose 205 H 04/16/22 06:24: WBC 7.4, RBC 3.70 L, Hgb 10.5 L, Hct 31.7 L, MCV 85.7, MCH 28.4, MCHC 33.1, RDW Std Deviation 47.8 H, RDW Coeff of Damon 15.3 H, Plt Count 355, MPV 9.2, Immature Gran % (Auto) 0.400, Neut % (Auto) 77.8 H, Lymph % (Auto) 11.6 L, [place] % (Auto) 10.2 H, Eos % (Auto) 0.0, Baso % (Auto) 0.0, Absolute Neuts (auto) 5.8, Absolute Lymphs (auto) 0.86, Nucleated RBC % 0 Micro: Microbiology 04/13/22 15:05 Blood Culture (Wb) - Right Forearm Blood Culture - Preliminary No growth in 48 hours. 04/13/22 14:55 Blood Culture (Wb) - Anticubital Left Blood Culture - Preliminary No growth in 48 hours. 04/13/22 15:26 Urine Catheter - Catheter Urine Culture - Preliminary GNR lactose auto claim representative Physical Exam Narrative GENERAL: cooperative HEENT: Atraumatic; normocephalic EYES; Anicteric, Normal Conjunctiva NECK; supple, normal thyroid, RESPIRATORY: Diminished to auscultation CARDIOVASCULAR: Regular S1 S2, GI: soft, normoactive bowel sounds, : No Renal angle tenderness; EXTREMITIES: No edema, no clubbing, MUSCULOSKELETAL: no muscle wasting NEURO: Awake; no lateralizing signs, But significant tremors at rest SKIN: No Rash PSYCH; Flat affect Assessment & Plan Assessment/Plan (1) Sepsis: PLAN: Plan Patient is a 76-year-old lady resident at an extended care facility brought in after she was found with decreased level of sensorium. An assessment of sepsis secondary to acute complicated UTI made admitted to regular nursing floor for further management 1. Sepsis secondary to UTI as well as suspected aspiration pneumonia ? Patient started on Rocephin cultures sent we will follow-up on urine cultures and adjust antibiotics as needed 2. Acute kidney injury ? Suspected to be secondary to acute tubular necrosis from sepsis. Patient baseline creatinine on record is 1.12 creatinine on admission was 2.53. Patient has been started on IV fluid daily monitoring with BMPs ordered ? 04/15/2022; slight improvement in kidney function 3. Hyponatremia ? Secondary to hypovolemic hyponatremia patient being managed with IV fluid with serial monitoring with BMPs ordered daily 4. Suspected head and neck malignancy ? CT performed on 04/13/2022 demonstrated Thickening of the nasopharyngeal wall and right nasopharyngeal and parapharyngeal soft tissues bilaterally suspicious for malignancy. Patient had apparently undergone PET scan a day prior to his admission which demonstrated metastatic disease. Family requested for palliative care/hospice consultation 5. Parkinson's disease ? Symptoms controlled on Sinemet did continue with home dose 6. Diabetes mellitus type 2 ? Apparently managed with diet was placed on Accu-Cheks before meals and at bedtime with sliding scale coverage. Patient has diabetic complications including diabetic polyneuropathy 7. History of colon cancer -status postresection with subsequent colostomy and reversal 8. Anemia - Secondary to chronic disorder monitoring H&H and transfuse if patient becomes symptomatic or hemoglobin falls below 7 9. Essential hypertension ? Patient antihypertensives held monitoring with every shift vitals ordered 10. DVT prophylaxis -SC heparin 11. Suspected aspiration ? Patient was kept n.p.o. following assessment by speech therapy. Further management decision regarding pleasure feed versus alternative methods of feeding to be determined by family decision was official PET scan result is available -04/16/2021; did resume pleasure feeding after discussion with family and CODE STATUS changed to DNR CC comfort care Time spent in the patient's overall evaluation,decision-making process, review of diagnostic data, adjustment of management, discussion with other providers, nursing nursing and ancillary staff involved in patient's care documentation, 56 Minutes Advance planning; Had an extensive discussion with patient's family her daughter regarding patient's current condition and prognosis. Patient has confirmed head and neck CA with possible metastatic disease (awaiting official PET scan report). Given patient rapid progressive decline decision was made to change CODE STATUS to DNR CC. Consult was placed to the hospitalist service did initiate hospice/palliative care order set. Time spent on discussion; 25 minutes Charges/Coding Visit Charges Inpatient E&M: 30740 Subs Hosp L3 Procedures Hospitalists Procedures: 71628 Advncd Care Plan 30 Min
[2022-04-16 07:32] LABS: Anion Gap 9 (5-15); BUN 16 mg/dL (7-18); BUN/Creat Ratio 16.9 RATIO (10-20); Calcium,Total 8.3 mg/dL (8.5-10.1); Chloride 97 mmol/L (98-107); Creatinine, Serum 0.95 mg/dL (0.55-1.02); EST Glomerular Filtration Rate 61 mL/min (>60); Est Glom Filt Rate - Afr Amer 74 mL/min (>60); Estimated Creatinine Clearance 35.62 ml/min; Glucose 213 mg/dL (74-106); Potassium 3.1 mmol/L (3.5-5.1); Sodium Level 134 mmol/L (136-145)
[2022-04-16 07:41] VITALS: BP 158/87; PULSE 120; RESP 16; TEMP 37.2; O2SAT 98
[2022-04-16] MEDS: Heparin Injection (Vial) 5,000 UNIT/ML VIAL 5000 UNIT SC (10:31)
[2022-04-16] MEDS: Ceftriaxone 1 GM/50 ML BAG IV (10:50)
[2022-04-16] MEDS: Acetaminophen 650 MG Suppository RC ×2 (13:12→18:16)
[2022-04-16] MEDS: Atropine Sulfate 1% 2 ml Bottle 4 DRP SL (13:12)
[2022-04-16 18:04] VITALS: BP 137/80; PULSE 118; RESP 16; TEMP 37.8; O2SAT 98
--- NOTE | 2022-04-16 19:43 | DS.PCM_ITS ---
Providers Date of Admission: 04/13/22 Date of Discharge: 04/16/22 Primary Care Physician: Dr. Allison Shane MD Consultations 04/13/22 19:06 Consult: Hospice / Palliative Care Routine Consulting Provider: [facility] Reason for Consult: Extensive metastatic CA, family interested transitioning. EMERGENT Consult: No Notified: Yes Date Notified: 04/13/22 Time Notified: 13:00 Method of Notification: CM/MART 04/16/22 10:13 Consult: Hospice / Palliative Care Routine Consulting Provider: [facility] Reason for Consult: Metastatic head and neck CA EMERGENT Consult: No MD Notified: Yes Date Notified: 04/16/22 Time Notified: 11:13 Method of Notification: Answering Service Reason For Visit: ENCEPHALOPATHY, HYPOTENSION, SEPSIS, UTI, METASTAT Diagnosis Discharge Diagnosis (1) Sepsis: Status: Acute Code(s): A41.9 - Sepsis, unspecified organism Plan Patient is a 76-year-old lady resident at an extended care facility brought in after she was found with decreased level of sensorium. An assessment of sepsis secondary to acute complicated UTI made admitted to regular nursing floor for further management 1. Sepsis secondary to UTI as well as suspected aspiration pneumonia ? Patient started on Rocephin cultures sent we will follow-up on urine cultures and adjust antibiotics as needed 2. Acute kidney injury ? Suspected to be secondary to acute tubular necrosis from sepsis. Patient baseline creatinine on record is 1.12 creatinine on admission was 2.53. Patient has been started on IV fluid daily monitoring with BMPs ordered ? 04/15/2022; slight improvement in kidney function 3. Hyponatremia ? Secondary to hypovolemic hyponatremia patient being managed with IV fluid with serial monitoring with BMPs ordered daily 4. Suspected head and neck malignancy ? CT performed on 04/13/2022 demonstrated Thickening of the nasopharyngeal wall and right nasopharyngeal and parapharyngeal soft tissues bilaterally suspicious for malignancy. Patient had apparently undergone PET scan a day prior to his admission which demonstrated metastatic disease. Family requested for palliative care/hospice consultation 5. Parkinson's disease ? Symptoms controlled on Sinemet did continue with home dose 6. Diabetes mellitus type 2 ? Apparently managed with diet was placed on Accu-Cheks before meals and at bedtime with sliding scale coverage. Patient has diabetic complications including diabetic polyneuropathy 7. History of colon cancer -status postresection with subsequent colostomy and reversal 8. Anemia - Secondary to chronic disorder monitoring H&H and transfuse if patient becomes symptomatic or hemoglobin falls below 7 9. Essential hypertension ? Patient antihypertensives held monitoring with every shift vitals ordered 10. DVT prophylaxis -SC heparin 11. Suspected aspiration ? Patient was kept n.p.o. following assessment by speech therapy. Further management decision regarding pleasure feed versus alternative methods of feeding to be determined by family decision was official PET scan result is available -04/16/2021; did resume pleasure feeding after discussion with family and CODE STATUS changed to DNR CC comfort care - patient was discharged to the inpatient hospice unit Time spent in the patient's overall evaluation,decision-making process, review of diagnostic data, adjustment of management, discussion with other providers, nursing nursing and ancillary staff involved in patient's care documentation, 36 Minutes Advance planning; Had an extensive discussion with patient's family her daughter regarding patient's current condition and prognosis. Patient has confirmed head and neck CA with possible metastatic disease (awaiting official PET scan report). Given patient rapid progressive decline decision was made to change CODE STATUS to DNR CC. Consult was placed to the hospitalist service did initiate hospice/palliative care order set. Time spent on discussion; 25 minutes Medications at Discharge Home Medications lisinopril 20 mg tablet 20 mg PO DAILY bp 06/08/20 ondansetron 4 mg disintegrating tablet 4 mg PO Q4H PRN Nausea 03/02/22 aspirin 81 mg chewable tablet 81 mg PO DAILY HEALTH MAINTENANCE 04/13/22 carbidopa 25 mg-levodopa 100 mg tablet 1 tab PO 4X/DAY 04/13/22 donepezil 5 mg tablet 5 mg PO QHS MEMORY 04/13/22 famotidine 20 mg tablet (Pepcid) 20 mg PO BID GERD 04/13/22 metoprolol tartrate 25 mg tablet 25 mg PO BID HEART 04/13/22 nut tx, lact-reduced, iron 0.09 gram-2.25 kcal/mL oral liquid (Boost VHC) 120 ml PO TID SUPPLEMENT 04/13/22 paroxetine HCl 10 mg tablet 10 mg PO DAILY MOOD 04/13/22 pramipexole 0.5 mg tablet 0.5 mg PO TID RLS 04/13/22 Hospital Course Summary of Care Provided Minutes Spent on Discharge: 36 Physical Exam Narrative GENERAL: cooperative HEENT: Atraumatic; normocephalic EYES; Anicteric, Normal Conjunctiva NECK; supple, normal thyroid, RESPIRATORY: Diminished to auscultation CARDIOVASCULAR: Regular S1 S2, GI: soft, normoactive bowel sounds, : No Renal angle tenderness; EXTREMITIES: No edema, no clubbing, MUSCULOSKELETAL: no muscle wasting NEURO: Awake; no lateralizing signs, But significant tremors at rest SKIN: No Rash PSYCH; Flat affect Medical Records Data Medical Nutrition Assessment Dietitian: Malnutrition Criteria Met Start: 04/14/22 13:50 Freq: Status: Active Protocol: Document 04/14/22 13:50 SLA (Rec: 04/14/22 13:50 SLA [id number]) Nutrition Malnutrition Evidence of Malnutrition Exists Yes Malnutrition (severe): Acute Illness/Injury Evidenced By Suboptimal Energy Intake ( Severe),Weight Loss (Severe) Clinical Problem Acute Disease or Injury Related Malnutrition Etiology related to colon cancer w/ mets and inability to consume adequate nutrition to meet est nutritional needs Signs/Symptoms as evidenced by 29.2% wt loss and po intake meeting <75% of est nutritional needs x 6 wks Status Active Problem Recommendation Dietitian Recommendations/Changes As medically able, rec JOHN to liberal Regular diet - consistency per FRETTED INSTRUMENT INSPECTOR. As medically able, rec 120 ml ensure plus high protein w/ medpass 4x/day Weight / BMI Weight Weight: 66.2 kg Body Mass Index (BMI) 29.2 ABG / Lab / Microbiology Data Result Diagrams: 04/16/22 06:24 04/16/22 06:24 Laboratory: Laboratory Results - last 24 hr 04/15/22 07:08: Diff Path Review July04/16/22 00:01: POC Glucose 190 H 04/16/22 06:13: POC Glucose 205 H 04/16/22 06:24: WBC 7.4, RBC 3.70 L, Hgb 10.5 L, Hct 31.7 L, MCV 85.7, MCH 28.4, MCHC 33.1, RDW Std Deviation 47.8 H, RDW Coeff of Damon 15.3 H, Plt Count 355, MPV 9.2, Immature Gran % (Auto) 0.400, Neut % (Auto) 77.8 H, Lymph % (Auto) 11.6 L, [place] % (Auto) 10.2 H, Eos % (Auto) 0.0, Baso % (Auto) 0.0, Absolute Neuts (auto) 5.8, Absolute Lymphs (auto) 0.86, Nucleated RBC % 0 04/16/22 06:24: Sodium 134 L, Potassium 3.1 L, Chloride 97 L, Carbon Dioxide 28.0, Anion Gap 9, BUN 16, Creatinine 0.95, Estim Creat Clear Calc 35.62, Est GFR (MDRD) Af Amer 74, Est GFR (MDRD) Non-Af 61, BUN/Creatinine Ratio 16.9, Glucose 213 H, Calcium 8.3 L Microbiology: Microbiology 04/13/22 15:26 Urine Catheter - Catheter Urine Culture - Final Escherichia coli 04/13/22 15:05 Blood Culture (Wb) - Right Forearm Blood Culture - Preliminary No growth in 48 hours. 04/13/22 14:55 Blood Culture (Wb) - Anticubital Left Blood Culture - Preliminary No growth in 48 hours. D/C Instructions Discharge Diet: No restrictions and [place] diet Discharge Activity: Return to Normal Activity Call your doctor if you observe: Fever of 101 or Higher, Shortness of breath, Fainting spells and Chest pain Meaningful Use Info Meaningful Use Diagnoses (Choose all that apply): None applicable Discharge Plan Admission Admit Date/Time: 04/13/22 17:28 Attending Provider: Jasmeet Villela Primary Care Provider: Allison Shane Consulting Providers: Betty Denis ; Nancy Padron ; Jasmeet Jones ; Balbina Jones ; Angeles Kumar ; Pricila Frost [employer] OFFICER Discharge Orders/Prescriptions Prescriptions: No Action lisinopril 20 MG tablet 20 mg PO DAILY ondansetron 4 MG tablet,disintegrating 4 mg PO Q4H PRN (Reason: Nausea) paroxetine HCl 10 mg tablet 10 mg PO DAILY donepezil 5 mg tablet 5 mg PO QHS Label Comments: 1po qday pramipexole 0.5 mg tablet 0.5 mg PO TID Label Comments: 1po qday famotidine [Pepcid] 20 mg Tablet 20 mg PO BID aspirin [Aspirin Low-Strength] 81 mg Tablet,Chewable 81 mg PO DAILY carbidopa-levodopa 25-100 mg tablet 1 tab PO 4X/DAY Label Comments: 1po qid metoprolol tartrate 25 mg tablet 25 mg PO BID Boost VHC 0.09-2.25 gram-kcal/mL Liquid 120 ml PO TID Referrals / Follow Up: Allison Shane MD [Primary Care Provider] - Disposition Disposition (needs filled in before D/C Order can be placed): Hospice in Medical Facility Charges/Coding Visit Charges Inpatient E&M: 57204 Disch Hosp >30min
[2022-04-16] MEDS: morphine (oral solution) 10MG/0.5ML Syringe 5 MG SL/PO (20:04)
[2022-04-16] MEDS: 0.9% Saline Lock 10 ML Syringe IV (20:04)
--- NOTE | 2022-04-16 20:23 | NURSING ---
Attempted to call report to [facility] but no answer. At 1999, sl her iv, and gave her sl roxanol for pain during transport. Family is at bedside, pt is comfortable at this time. Transport arrived at 2017.
== END 2022-04-16 20:20 | disposition hospice, inpatient (51) | DRG 871 ==
LOC: ED 17:49 → MS3 18:00
PROVIDERS: Admitting Provider Family Medicine; Emergency Provider Emergency Medicine; PCP Internal Medicine; Visit Provider Internal Medicine
DX: A41.9 Sepsis, unspecified organism (principal); E43 Unspecified severe protein-calorie malnutrition; N17.0 Acute kidney failure with tubular necrosis; J69.0 Pneumonitis due to inhalation of food and vomit; C78.01 Secondary malignant neoplasm of right lung; C77.0 Secondary and unspecified malignant neoplasm of lymph nodes of head, face and neck; N39.0 Urinary tract infection, site not specified; E87.20 Acidosis, unspecified; C78.02 Secondary malignant neoplasm of left lung; C79.89 Secondary malignant neoplasm of other specified sites; E87.1 Hypo-osmolality and hyponatremia; B96.20 Unspecified Escherichia coli [E. coli] as the cause of diseases classified elsewhere; E11.42 Type 2 diabetes mellitus with diabetic polyneuropathy; E11.51 Type 2 diabetes mellitus with diabetic peripheral angiopathy without gangrene; G20 Parkinson's disease; F02.80 Dementia in other diseases classified elsewhere, unspecified severity, without behavioral disturbance, psychotic disturbance, mood disturbance, and anxiety; D63.0 Anemia in neoplastic disease; I10 Essential (primary) hypertension; I95.9 Hypotension, unspecified; E78.5 Hyperlipidemia, unspecified; R68.0 Hypothermia, not associated with low environmental temperature; Z68.29 Body mass index [BMI] 29.0-29.9, adult; Z66 Do not resuscitate; Z51.5 Encounter for palliative care; Z79.82 Long term (current) use of aspirin; Z79.899 Other long term (current) drug therapy; Z85.038 Personal history of other malignant neoplasm of large intestine
CPT/HCPCS: 36415; 70450; 71045; 74230; 78815; 80048; 80053; 81001; 82962; 83605; 83735; 84100; 85025; 85027; 87040; 87077; 87086; 87088; 87186; 92526; 92610; 92611; 97162; 97166; 97530; 99285; A9552; J7030; A4216; J2405